=== PATIENT | female | born 1950 | race Caucasian/White ===

== ENCOUNTER → 2018-05-14 14:16 | Outpatient (CLI) | payer MEDICARE, OTHER, SELFPAY ==
[2018-05-14 14:39] LABS: Absolute Lymphocyte Count 2.17 X10^3/ul (0.83-4.51); Absolute Neutrophil Count 2.3 X10^3/uL (2.0-7.7); Basophil# 0.05 X10^3/uL; Eosinophil# 0.19 X10^3/uL; Eosinophils% 3.8 % (0-5); Hematocrit 37.6 % (37-47); Lymphocyte # 2.17 X10^3/ul (4.0); Lymphocyte % 43.2 % (19-41); Mean Corp Hgb Conc 34.6 g/gl (32-36); Mean Corpuscular Hgb 31.9 pg (27.0-32.0); Mean Corpuscular Volume 92.4 fL (81-99); Mean Platelet Vol. 10.7 fl (6.2-12.0); Monocyte# 0.29 X10^3/uL; Monocyte% 5.8 % (0-10); Neutrophil # 2.32 X10^3/uL (2.7-7.7); Neutrophil % 46.2 % (47-70); POSITIVE COUNT NO; POSITIVE DIFFERENTIAL NO; POSITIVE MORPHOLOGY NO; Platelet Count 192 K/mm3 (150-450); RBC Distribution Width CV 12.9 % (11.6-14.6); Red Blood Count 4.07 M/mm3 (4.2-5.4)
[2018-05-20 12:09] LABS: Alternaria alternata 1.27 kU/L (Class II); Bermuda Grass <0.10 kU/L (Class 0); Bluegrass, Kentucky <0.10 kU/L (Class 0); Cat Hair/Dander, Standard <0.10 kU/L (Class 0); D farinae Mite <0.10 kU/L (Class 0); D pteronyssinus <0.10 kU/L (Class 0); Dog Epithelia <0.10 kU/L (Class 0); Elm, American White <0.10 kU/L (Class 0); Oak, White <0.10 kU/L (Class 0); Plantain, English <0.10 kU/L (Class 0); Ragweed, Short/Common <0.10 kU/L (Class 0)
[2018-05-21 09:43] LABS: Mouse Urine <0.10 kU/L (Class 0)
[2018-05-22 03:07] LABS: Aspirgillus flavus Negative (Neg:<1:1); Aspirgillus fumigatus Negative (Neg:<1:1); Aspirgillus niger Negative (Neg:<1:1)
[2018-05-22 08:13] LABS: Immunoglobulin E 54 IU/mL (0-100)
== END ==
PROVIDERS: Family Provider Family Medicine; PCP Family Medicine; Visit Provider Nurse Practitioner Acute Care
DX: J45.909 Unspecified asthma, uncomplicated (principal); Z90.711 Acquired absence of uterus with remaining cervical stump
CPT/HCPCS: 36415; 82785; 85025; 86003; 86606

== ENCOUNTER → 2018-06-18 12:34 | Outpatient (CLI) | payer MEDICARE, OTHER, SELFPAY ==
--- NOTE | 2018-06-19 07:30 | PFT ---
INTRODUCTION: The patient is a 68-year-old female that presents for pulmonary function testing secondary to a diagnosis of COPD. Respiratory therapy reports good patient effort. Bronchodilators were used during testing. INTERPRETATION: Forced expiration spirometry demonstrates the presence of a moderate large airways obstructive ventilatory defect. There was a significant response to aerosolized bronchodilators noted, based upon change in FVC. Spirograms are of good quality and do not plateau indicating slow emptying of the lungs. Body plethysmography was performed and reveals an elevated RV to 161% of predicted, indicative of underlying air trapping. Diffusing capacity by single breath CO is preserved at 82% of predicted. When compared to previous pulmonary function studies dated June 2017 there has been improvement in the patient's FEV1 and DLCO. IMPRESSION: These pulmonary function studies demonstrate the presence of a partially reversible moderate large airways obstructive ventilatory defect with associated air trapping and preserved diffusing capacity.
== END ==
PROVIDERS: Family Provider Family Medicine; PCP Family Medicine; Visit Provider Nurse Practitioner Acute Care
DX: J44.9 Chronic obstructive pulmonary disease, unspecified (principal)
CPT/HCPCS: 94060; 94726; 94729

== ENCOUNTER → 2018-06-25 11:56 | Outpatient (CLI) | payer MEDICARE, OTHER, SELFPAY ==
[2018-06-25 12:25] VITALS: PULSE 101; PULSE 102; PULSE 72; PULSE 84; PULSE 85; PULSE 89; PULSE 96; PULSE 99; O2SAT 92; O2SAT 94; O2SAT 98
--- NOTE | 2018-06-25 13:15 | PCM.PSN.6M ---
PSN 6 Minute Walk Test - 6 Minute Walk Test 6 Minute Walk Test: 6 Minute Walk Test PSN:6-Minute Walk Test Start: 06/25/18 12:25 Freq: Status: Active Protocol: RESP.6MINW Document 06/25/18 12:25 DAI (Rec: 06/25/18 12:28 JLA [id number]) 6 Minute Walk Test Date Performed 06/25/18 Time Performed 12:30 Height 5 ft 4 in Weight: 103.873 kg Weight in Pounds 229.[address]: Padma Pérez Assistive device used: None Pre-test Oxygen Delivery Method Room Air Pulse Ox (%) 98 Pulse Rate (60-100 beats/min) 72 Dyspnea Edwin Scale (0-10) 1 Exertion Edwin Scale (6-20) 6 1st minute Oxygen Delivery Method Room Air Pulse Ox (%) 92 Pulse Rate (60-100 beats/min) 84 2nd minute Oxygen Delivery Method Room Air Pulse Ox (%) 92 Pulse Rate (60-100 beats/min) 89 3rd minute Oxygen Delivery Method Room Air Pulse Ox (%) 94 Pulse Rate (60-100 beats/min) 96 4th minute Oxygen Delivery Method Room Air Pulse Ox (%) 94 Pulse Rate (60-100 beats/min) 102 H 5th minute Oxygen Delivery Method Room Air Pulse Ox (%) 94 Pulse Rate (60-100 beats/min) 101 H 6th minute Oxygen Delivery Method Room Air Pulse Ox (%) 94 Pulse Rate (60-100 beats/min) 99 Dyspnea Edwin Scale (0-10) 1 Exertion Edwin Scale (6-20) 11 Post-test Oxygen Delivery Method Room Air Pulse Ox (%) 98 Pulse Rate (60-100 beats/min) 85 Full Laps Walked 22 Partial Lap, Number of Tiles Walked 0 Total Distance Walked (ft) 1298 - Interpretation Interpretation: The patient was able to ambulate 1298 feet over the course of 6 minutes on room air with no assistive devices or breaks. The patient did experience significant desaturation as low as 92% during ambulation. These findings are consistent with a respiratory limitation exercise tolerance. - Recommendations Recommendations: No supplemental oxygen is indicated at this time. However, patient will need to be followed closely given level of desaturation.
== END ==
PROVIDERS: Family Provider Family Medicine; PCP Family Medicine; Visit Provider Nurse Practitioner Acute Care
DX: J44.9 Chronic obstructive pulmonary disease, unspecified (principal)
CPT/HCPCS: 94618

== ENCOUNTER → 2018-11-19 11:43 | Outpatient (CLI) | payer MEDICARE, OTHER, SELFPAY ==
[2018-11-19 11:07] VITALS: BMI 39.8
--- OUTSIDE RECORDS SUMMARY | 2019-01-24 03:24 | XMS RPT_ITS ---
:1950 Author Organization OHIP Support Name Relationship Address Phone HOME DREW Unavailable [address] + [place] [address] R Unavailable Unavailable Unavailable HOME DREW Unavailable [address] + [place] [address] R Unavailable Unavailable Unavailable [facility] Unavailable [address] + [place] [address] R Unavailable Unavailable Unavailable [facility] Unavailable [address] + [place] [address] R Unavailable Unavailable Unavailable HOME DREW Unavailable [address] + [place] [address] R Unavailable Unavailable Unavailable [facility] Unavailable [address] + [place] [address] R Unavailable Unavailable Unavailable [facility] Unavailable [address] + [place] [address] R Unavailable Unavailable Unavailable [facility] Unavailable [address] + [place] [address] R Unavailable Unavailable Unavailable HOME DREW Unavailable [address] + [place] [address] R Unavailable Unavailable Unavailable HOME DREW Unavailable Unavailable + HOME DREW Unavailable Unavailable + HOME DREW Unavailable Unavailable + HOME DREW Unavailable [address] + [place] [address] R Unavailable Unavailable Unavailable Care Team Providers Name Role Phone Dwight Valadez D.O. Attending Unavailable Vijay Alfaro Referring Unavailable Padma Pérez Attending Unavailable Vijay Alfaro Referring Unavailable Padma Pérez Attending Unavailable Pérez, Padma Referring Unavailable Furness, Vijay Primary Care Unavailable Pérez, Padma Attending Unavailable Furness, Vijay Referring Unavailable Furness, Vijay Primary Care Unavailable Pérez, Padma Attending Unavailable Pérez, Padma Referring Unavailable Furness, Vijay Primary Care Unavailable Pérez, Padma Attending Unavailable Furness, Vijay Primary Care Unavailable Pérez, Padma Referring Unavailable Pérez, Padma Attending Unavailable Furness, Vijay Referring Unavailable Pérez, Padma Attending Unavailable Pérez, Padma Referring Unavailable Furness, Vijay Primary Care Unavailable Dwight Valadez D.O. Attending Unavailable Pérez, Padma Referring Unavailable GrahamDontrell Attending Unavailable Pérez, Padma Referring Unavailable Furness, Vijay T Attending Unavailable Furness, Vijay T Primary Care Unavailable Furness, Vijay T Attending Unavailable Furness, Vijay T Primary Care Unavailable Furness, Vijay T Admitting Unavailable Furness, Vijay T Attending Unavailable Furness, Vijay T Primary Care Unavailable Furness, Vijay T Primary Care Unavailable Furness, Vijay T Admitting Unavailable Furness, Vijay T Attending Unavailable Furness, Vijay T Primary Care Unavailable Furness, Vijay T Admitting Unavailable Furness, Vijay T Attending Unavailable Furness, Vijay T Primary Care Unavailable Furness, Vijay T Attending Unavailable Furness, Vijay T Primary Care Unavailable Furness, Vijay T Admitting Unavailable Furness, Vijay T Admitting Unavailable Furness, Vijay T Attending Unavailable Furness, Vijay T Primary Care Unavailable Furness, Vijay T Attending Unavailable Furness, Vijay T Primary Care Unavailable Furness, Vijay T Attending Unavailable Furness, Vijay T Primary Care Unavailable Furness, Vijay T Primary Care Unavailable Furness, Vijay T Attending Unavailable Furness, Vijay T Primary Care Unavailable Furness, Vijay T Admitting Unavailable PROBLEMS PROBLEMS DATE TYPE CONDITION / CODE ATTENDING STATUS SOURCE 11/19/2018 Unknown R06.02 - Shortness Beto, Active [facility] of breath / [facility] [place] R06.02(ICD-10) Hospital Repository 07/02/2018 Unknown J44.9 - Chronic Dontrell Stevenson Active [facility] obstructive [facility] pulmonary disease, Hospital unspecified / Repository J44.9(ICD-10) 05/14/2018 Unknown J45.909 - Beto, Active [facility] Unspecified asthma, [facility] [place] uncomplicated / Hospital J45.909(ICD-10) Repository 03/26/2018 Unknown G47.33 - Dwight Valadez, Active [facility] Obstructive sleep D.O. Community apnea (adult) Hospital (pediatric) / Repository G47.33(ICD-10) 03/26/2018 Unknown J30.9 - Allergic Dwight Valadez, Active [facility] rhinitis, D.O. Community unspecified / Hospital J30.9(ICD-10) Repository PROCEDURES PROCEDURES No Procedure Records FoundRESULTS RESULTS PULMONARY VISIT REPORT Observed: 11/19/2018 Status: F Source: AYR 11:[address] [facility] REPOSITORY [facility] [address] [place] [address] OFFICE VISIT Date of Service: 11/19/18 MR#: [id number] Acct: [id number] Name: LOLA DREW Rep #: [id number] : 1950 Provider: Padma Pérez Age/Sex: 68/F [place] [facility] [place] Status: Signed Assessment AND Plan 1. Chronic obstructive pulmonary disease with acute exacerbation J44.1 Plan Deteriorated. Continue Doxy, restart prednisone taper. Sending sputum culture, may change antibiotic if indicated. Continue current maintenance medications. Keep previously scheduled routine follow-up with Dr. Valadez. Contact the office next week if there is no improvement in her symptoms. Plan Detail Other Orders Orders: Other Medications New: prednisone take 4 tabs for three days, then 3 tabs for three10 mg PO QDAY 30 tabs 0RF days, then 2 tabs for three days, then 1 tab for 3 days HPI Shortness of breath: Chief Complaint: Chest congestion HPI Comments Details: This patient presents the office today for an acute visit regarding follow-up after recently being started on doxycycline and prednisone taper for a exacerbation of her COPD. She is ambulatory and currently in room air. She still has 2 days remaining of doxycycline, and just began the 20 mg dosing of prednisone. She states that overall she feels much improved compared to how she was feeling when she initially called the office with complaints. She is still experiencing chest tightness, just started taking Mucinex yesterday for the chest congestion. Continues with chest congestion today, unsure if Mucinex has been helpful. She has increase in shortness of breath and wheezing. The nebulizer has been helpful with the treatment of the shortness of breath and wheezing. She has a cough that was previously productive of yellow sputum but it house now changed to a cream color. She denies any fever or chills. She is not experience any hemoptysis. She remains compliant with Advair twice daily. She denies any medication side effects such as sore throat or thrush. Intake Vital Signs11/19/18 Height 5 ft 4 in 11/19/18 Weight: 232 lb Intake Visit Reasons: Shortness of breath Chief Complaint: Shortness of breath on exertion DME Vendor: RICARDA Accompanied by: Self Allergies amoxicillin Allergy (Mild, Verified 11/19/18 11:07) Hives sulfasalazine [From Sulfazine] Allergy (Mild, Verified 11/19/18 11:07) Hives Medications cholecalciferol (vitamin D3) 1,000 unit capsule 1,000 unit PO QDAY 03/11/18 [History Confirmed 11/19/18] duloxetine 60 mg capsule,delayed release 60 mg PO QDAY 03/11/18 [History Confirmed 11/19/18] furosemide 40 mg tablet 40 mg PO QDAY 03/11/18 [History Confirmed 11/19/18] levothyroxine 50 mcg capsule 50 mcg PO QDAY 03/11/18 [History Confirmed 11/19/18] montelukast 10 mg tablet 10 mg PO QPM 03/11/18 [History Confirmed 11/19/18] multivit with min-folic acid-lutein 400 mcg-250 mcg chewable tablet tab PO 03/11/18 [History Confirmed 11/19/18] potassium chloride ER 20 mEq tablet,extended release 20 meq PO QDAY 03/11/18 [History Confirmed 11/19/18] simvastatin 40 mg tablet 40 mg PO QPM 03/11/18 [History Confirmed 11/19/18] trazodone 50 mg tablet 50 mg PO QDAY 03/11/18 [History Confirmed 11/19/18] albuterol sulfate HFA 90 mcg/actuation aerosol inhaler 2 puff INHALATION Q6H PRN #18 g 03/16/18 [Rx Confirmed 11/19/18] azelastine-fluticasone 137 mcg-50 mcg/spray nasal spray 1 spray INTRANASAL BID #23 g 05/14/18 [Rx Confirmed 11/19/18] fluticasone-salmeterol 230 mcg-21 mcg/actuation HFA aerosol inhaler 2 puff INHALATION BID #1 device 11/04/18 [Rx Confirmed 11/19/18] albuterol sulfate 2.5 mg/3 mL (0.083 %) solution for nebulization 2.5 mg INHALATION Q4H PRN #180 vial 11/18/18 [Rx Confirmed 11/19/18] guaifenesin ER 1,200 mg tablet, extended release 12 hr 1,200 mg PO Q12H #30 tab 11/18/18 [Rx Confirmed 11/19/18] prednisone 10 mg tablet 10 mg PO QDAY #30 tab 11/19/18 [Rx Confirmed 11/19/18] PFSH Medical History Emphysema lung (Chronic) Vitamin D deficiency (Chronic) Osteopenia (Chronic) GERD (gastroesophageal reflux disease) (Chronic) Depression (Chronic) JOHNATHAN (obstructive sleep apnea) (Chronic) Insomnia (Chronic) Hypercholesterolemia (Chronic) Hypothyroidism (Chronic) Seborrheic keratosis (Chronic) Lentigo (Chronic) Hemangioma of skin (Chronic) Neurotic excoriations (Chronic) Neoplasm of uncertain behavior of skin (Chronic) Personal history of other malignant neoplasm of skin (Chronic) Actinic keratosis (Chronic) Asthma (Chronic) Obesity (Chronic) Nicotine dependence in remission (Chronic) COPD (chronic obstructive pulmonary disease) (Chronic) Allergic rhinitis (Chronic) Surgical History History of sinus surgery (Resolved) History of partial hysterectomy (Resolved) Family History Mother Cancer Father Asthma Heart disease Myocardial infarction Sister Asthma Hypertension Seasonal allergies Social History Smoking Status: Former smoker second hand exposure: Yes alcohol intake: current alcohol intake frequency: holidays/special occasions only substance use type: does not use caffeine: Yes Review of Systems Const CONSTITUTIONAL: Negative anorexia, body ache, chills, daytime sleepiness, fever(s), night sweats, oral thrush, stops breathing during sleep, weight loss, sleeping in chair, fatigue, weight loss, weight gain, frequent colds, seasonal allergies, other, headache(s) or orthopnea EETM Ear Nose Throat Mouth: Positive hearing normal; negative hard of hearing, hoarseness, dry mouth in morning, change in vision, itchy eyes, eye pain, swallowing Difficulty, ear pain, nose bleed, headache(s), mouth pain, nasal congestion, nasal discharge, sinus pain, sinus pressure, sore throat or other Cardio Cardiovascular: Negative chest pain, chest pain at rest, chest pain with activity, irregular heart rhythm, edema, shortness of breath when lying down, palpitations, murmur or other Resp Respiratory: Positive as per HPI; negative shortness of breath, pain with cough, wheezing, chest congestion, cough, chest tightness, pain on inspiration, inhalers, increase use of rescue inhalers, snoring, apnea or other Gastro Gastrointestional: Negative bloody stools, change in appetite, difficulty swallowing, reflux, hematemesis, melena stool, loose stool, constipation or other Genitourinary: Negative blood in urine, nocturia, pain with urination or other Musc Musculoskeletal: Negative body pain, back pain, neck pain or other Skin/Breast Skin/Breast: Negative dry skin, itching, unusual bruising, breast lump or other Neuro Neurological: Negative restless legs, confusion, weakness or other Psych Psychocological: Negative abnormal sleep pattern, anxiety, thoughts of hurting self/others, hopelessness or other Lymph Lymphatic: Negative easy bleeding, easy bruising, swollen lymph nodes or other Exam Const Constitutional: Positive conversant, cooperative, in no acute respiratory distress, well developed, well nourished and good hygiene Head Head: Positive normocephalic and atraumatic; negative cyanosis of lips/distal nose Eyes Eye: Positive clear conjunctiva; negative nystagmus or scleral abnormality Ears Ear: Positive hearing normal and external ears normal; negative hard of hearing Nose Nose: Positive external nose normal and no nasal discharge; negative epistaxis Neck Neck: Positive normal visual inspection, full ROM and trachea midline; negative lymphadenopathy, JVD or tender Chest Wall Chest: Positive symmetric chest movement and increased A/P diameter Resp lung sounds: Positive diminished, wheezes, prolonged expiratory time and increased work of breathing; negative rhonchi, rales, dullness to percussion or use of accessory muscles Cardio Cardiac: Positive regular rate, regular rhythm, S1 normal and S2 normal; negative murmur GI GI: Positive normal to inspection; negative distended Genitourinary: Positive deferred Musc Musculoskeletal: Positive steady gait and ROM normal; negative kyphosis or scoliosis Pulses Pulse: Yes pulses normal x4 extremities Extremities Extremities: No edema Neuro Neurologic: Yes conversant, Yes no focal neuro deficits, Yes normal concentration, Yes understands questions, Yes cooperative, Yes normal cognition, Yes normal coordination, No tremor Lymph Lymphatic: No lymphadenopathy Psych Appearance: Positive grossly normal, eye contact and well kempt Mental Status: Positive mental status grossly normal Mood: Positive congruent mood Affect: Positive normal affect Coding Level of Care Code Off vis,est,level 3 Diagnoses Chronic obstructive pulmonary disease with acute exacerbation J44.1 COPD type: COPD with acute exacerbation 11/19/18 1145 <Electronically signed by Padma HUBBARDC> Date Padma HUBBARDC Cosigner Signature: Date (if applicable) CC: Vijay Alfaro MD Observed: 11/19/2018 Status: F Source: [facility] CULTURE, SPUTUM 11:[address] [facility] REPOSITORY Gram Stain Gram Stain 2+ Gram positive cocci 2+ White Blood Cells Resp. Culture Mixed normal respiratory charu. No Streptococcus pneumoniae, beta-hemolytic Streptococcus or Staphylococcus aureus isolated. Performed By: #### [id number] #### [facility] [address], [address] 6 MINUTE WALK TEST Observed: 06/25/2018 Status: F Source: GALEN 1:[address] [facility] REPOSITORY [facility] Pulmonary Services/Neurology [address] [place] [address] MR#: [id number] Acct: [id number] Name: LOLA DREW Rep #: [id number] : 1950 68 From: Dontrell Stevenson MD Referring Dr: Padma Pérez NP Date: Ordering Dr: Sex: F C Location: PSN PSN 6 Minute Walk Test - 6 Minute Walk Test 6 Minute Walk Test: 6 Minute Walk Test PSN:6-Minute Walk Test Start: 06/25/18 12:25 Freq: Status: Active Protocol: RESP.6MINW Document 06/25/18 12:25 DAI (Rec: 06/25/18 12:28 DAI [id number]) 6 Minute Walk Test Date Performed 06/25/18 Time Performed 12:30 Height 5 ft 4 in Weight: 103.873 kg Weight in Pounds 229.[address]: Padma Pérez Assistive device used: None Pre-test Oxygen Delivery Method Room Air Pulse Ox (%) 98 Pulse Rate (60-100 beats/min) 72 Dyspnea Edwin Scale (0-10) 1 Exertion Edwin Scale (6-20) 6 1st minute Oxygen Delivery Method Room Air Pulse Ox (%) 92 Pulse Rate (60-100 beats/min) 84 2nd minute Oxygen Delivery Method Room Air Pulse Ox (%) 92 Pulse Rate (60-100 beats/min) 89 3rd minute Oxygen Delivery Method Room Air Pulse Ox (%) 94 Pulse Rate (60-100 beats/min) 96 4th minute Oxygen Delivery Method Room Air Pulse Ox (%) 94 Pulse Rate (60-100 beats/min) 102 H 5th minute Oxygen Delivery Method Room Air Pulse Ox (%) 94 Pulse Rate (60-100 beats/min) 101 H 6th minute Oxygen Delivery Method Room Air Pulse Ox (%) 94 Pulse Rate (60-100 beats/min) 99 Dyspnea Edwni Scale (0-10) 1 Exertion Edwin Scale (6-20) 11 Post-test Oxygen Delivery Method Room Air Pulse Ox (%) 98 Pulse Rate (60-100 beats/min) 85 Full Laps Walked 22 Partial Lap, Number of Tiles Walked 0 Total Distance Walked (ft) 1298 - Interpretation Interpretation: The patient was able to ambulate 1298 feet over the course of 6 minutes on room air with no assistive devices or breaks. The patient did experience significant desaturation as low as 92% during ambulation. These findings are consistent with a respiratory limitation exercise tolerance. - Recommendations Recommendations: No supplemental oxygen is indicated at this time. However, patient will need to be followed closely given level of desaturation. 06/25/18 1315 <Electronically signed by Dontrell Stevenson MD> Date Dontrell Stevenson MD CC: Date Dictated: 06/25/18 1315 Date Transcribed: 06/25/181314 Jail Keeper: Dontrell Stevenson Signed PULMONARY VISIT REPORT Observed: 06/24/2018 Status: F Source: GALEN 3:[address] [facility] REPOS[facility]ORY [facility] [address] [place] [address] OFFICE VISIT Date of Service: 06/24/18 MR#: [id number] Acct: [id number] Name: LOLA DREW Rep #: [id number] : 1950 Provider: Padma Pérez Age/Sex: 68/F Location: [facility] [place] Status: Signed Assessment AND Plan 1. JOHNATHAN (obstructive sleep apnea) G47.33 Plan Patient is using and benefiting from Pap therapy. No indication for titration study at this time. Continue to encourage weight loss. Contact the office for any new or worsening symptoms in the meantime. Follow-up in 6 months. 2. 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 No change in maintenance medications. Discussed the possibility of adding a LAMA or be hyperinflation and air trapping, the patient reports that her shortness of breath is stable and she is not ready to step up therapy. This seems reasonable. We will plan to evaluate for possible hypoxia during ambulation with a simple pulmonary stress test, to evaluate for shortness of breath that she experiences while walking. If indicated submental oxygen will be ordered. Otherwise, follow-up with Dr. Valadez in 6 months. Contact the office with any new or worsening symptoms in the meantime. Reviewed sick policy with the patient, she conveys understanding. Encouraged the patient to receive a flu shot in the upcoming future, also reviewed defensive mechanisms to maintain health during the winter months. Orders Orders: 3. Postnasal drip R09.82 Plan Stable, continue Dymista. Plan Detail Follow Up 6 Months (DMB) HPI 1 M FU: Chief Complaint: Shortness of breath on exertion HPI Comments Details: This patient presents the office today for routine follow-up on her asthma/COPD overlap syndrome, and obstructive sleep apnea. She is ambulatory and currently on room air. She was treated for an exacerbation of her asthma 1 month ago with a prednisone burst. She does not require antibiotics at the time. She did return to baseline. Currently she continues to experience shortness of breath on exertion, reports that it has not worsened. She has an occasional cough in the morning that is productive of clear to white sputum. It does resolve throughout the day. She denies any hemoptysis. She does admit to wheezing and chest tightness on exertion, she does not feel the need to use her rescue inhaler. Her postnasal drip has significantly improved while on Dymista. She denies any medication side effects such as epistaxis. She denies any chest pain or palpitations, she also denies any lower extremity edema. She has not experienced any fever, chills or body aches. She is compliant with Advair twice daily. She reports rinsing her mouth out after each use. She denies any medication side effects such as sore throat or thrush. Function test completed on June 18, 2018 interpreted as showing the presence of a partially reversible moderate large airway obstructive ventilatory defect with associated air trapping and preserved diffusing capacity. FVC 96% predicted, FEV1 76% predicted, FEV1/FVC 61% of predicted, TLC 115% predicted, RV 161% of predicted and DLCO 82% of predicted. Complaints report for the past 30 days has been reviewed and shows 100% compliance, average use is 9 hours and 23 minutes. Current setting is 9 7 m of water. Current AHI is controlled at an average of 1.3 events per hour and leaks do not appear to be an issue. Intake Vital Signs06/24/18 Height 5 ft 4 in 06/24/18 Weight: 229 lb Intake Visit Reasons: 1 M Balance Wheel Hand Filer Required: No Accompanied by: Self Is patient in pain?: No Allergies amoxicillin Allergy (Mild, Verified 05/14/18 12:51) Hives sulfasalazine [From Sulfazine] Allergy (Mild, Verified 05/14/18 12:51) Hives Medications cholecalciferol (vitamin D3) 1,000 unit capsule 1,000 unit PO QDAY 03/11/18 [History Confirmed 06/24/18] duloxetine 60 mg capsule,delayed release 60 mg PO QDAY 03/11/18 [History Confirmed 06/24/18] furosemide 40 mg tablet 40 mg PO QDAY 03/11/18 [History Confirmed 06/24/18] levothyroxine 50 mcg capsule 50 mcg PO QDAY 03/11/18 [History Confirmed 06/24/18] montelukast 10 mg tablet 10 mg PO QPM 03/11/18 [History Confirmed 06/24/18] multivit with min-folic acid-lutein 400 mcg-250 mcg chewable tablet tab PO 03/11/18 [History Confirmed 06/24/18] potassium chloride ER 20 mEq tablet,extended release 20 meq PO QDAY 03/11/18 [History Confirmed 06/24/18] simvastatin 40 mg tablet 40 mg PO QPM 03/11/18 [History Confirmed 06/24/18] trazodone 50 mg tablet 50 mg PO QDAY 03/11/18 [History Confirmed 06/24/18] albuterol sulfate HFA 90 mcg/actuation aerosol inhaler 2 puff INHALATION Q6H PRN #18 g 03/16/18 [Rx Confirmed 06/24/18] fluticasone-salmeterol 230 mcg-21 mcg/actuation HFA aerosol inhaler 2 puff INHALATION BID #1 device 03/16/18 [Rx Confirmed 06/24/18] azelastine-fluticasone 137 mcg-50 mcg/spray nasal spray 1 spray INTRANASAL BID #23 g 05/14/18 [Rx Confirmed 06/24/18] prednisone 20 mg tablet 60 mg PO QDAY #15 tab 05/14/18 [Rx Confirmed 06/24/18] PFSH Medical History Emphysema lung (Chronic) Vitamin D deficiency (Chronic) Osteopenia (Chronic) GERD (gastroesophageal reflux disease) (Chronic) Depression (Chronic) JOHNATHAN (obstructive sleep apnea) (Chronic) Insomnia (Chronic) Hypercholesterolemia (Chronic) Hypothyroidism (Chronic) Seborrheic keratosis (Chronic) Lentigo (Chronic) Hemangioma of skin (Chronic) Neurotic excoriations (Chronic) Neoplasm of uncertain behavior of skin (Chronic) Personal history of other malignant neoplasm of skin (Chronic) Actinic keratosis (Chronic) Asthma (Chronic) Obesity (Chronic) Nicotine dependence in remission (Chronic) COPD (chronic obstructive pulmonary disease) (Chronic) Allergic rhinitis (Chronic) Surgical History History of sinus surgery (Resolved) History of partial hysterectomy (Resolved) Family History Mother Cancer Father Asthma Heart disease Myocardial infarction Sister Asthma Hypertension Seasonal allergies Social History Smoking Status: Former smoker second hand exposure: Yes alcohol intake: current alcohol intake frequency: holidays/special occasions only substance use type: does not use caffeine: Yes Review of Systems Const CONSTITUTIONAL: Negative anorexia, body ache, chills, daytime sleepiness, fever(s), night sweats, oral thrush, stops breathing during sleep, weight loss, sleeping in chair, fatigue, weight loss, weight gain, frequent colds, seasonal allergies, other, headache(s) or orthopnea EETM Ear Nose Throat Mouth: Positive hearing normal and nasal discharge; negative hard of hearing, hoarseness, dry mouth in morning, change in vision, itchy eyes, eye pain, swallowing Difficulty, ear pain, nose bleed, headache(s), mouth pain, nasal congestion, post nasal drip, sinus pain, sinus pressure, sore throat or other Cardio Cardiovascular: Negative chest pain, chest pain at rest, chest pain with activity, irregular heart rhythm, edema, shortness of breath when lying down, palpitations, murmur or other Resp Respiratory: Positive as per HPI, shortness of breath shortness of breath: Positive with activity and cough cough: Positive productive color: Positive white; negative pain with cough, wheezing, chest congestion, chest tightness, pain on inspiration, inhalers, increase use of rescue inhalers, snoring, apnea or other Gastro Gastrointestional: Negative bloody stools, change in appetite, difficulty swallowing, reflux, hematemesis, melena stool, loose stool, constipation or other Genitourinary: Negative blood in urine, nocturia, pain with urination or other Musc Musculoskeletal: Negative body pain, back pain, neck pain or other Skin/Breast Skin/Breast: Negative dry skin, itching, rash, unusual bruising, breast lump or other Neuro Neurological: Negative restless legs, confusion, weakness or other Psych Psychocological: Negative abnormal sleep pattern, anxiety, thoughts of hurting self/others, hopelessness or other Lymph Lymphatic: Negative easy bleeding, easy bruising, swollen lymph nodes or other Exam Const Constitutional: Positive conversant, cooperative, in no acute respiratory distress, healthy appearing, well developed, well nourished, good hygiene and obese Head Head: Positive normocephalic and atraumatic; negative cyanosis of lips/distal nose, maxillary sinus tenderness or frontal sinus tenderness Eyes Eye: Positive clear conjunctiva; negative nystagmus or scleral abnormality Ears Ear: Positive hearing normal and external ears normal; negative hard of hearing Nose Nose: Positive external nose normal and no nasal discharge; negative epistaxis Mouth Mouth: Positive oral mucosae normal, no lesions, good dentition and crowded posterior oropharynx; negative post nasal drip, malodorous breath or oral thrush present Mallampati Score: I: Mallampati Score Neck Neck: Positive normal visual inspection, full ROM and trachea midline; negative lymphadenopathy, JVD or tender Chest Wall Chest: Positive normal inspection of the chest and symmetric chest movement; negative increased A/P diameter Resp lung sounds: Positive clear to auscultation, good air exchange, normal expiratory time and normal respiratory effort; negative diminished, wheezes, rhonchi, rales, dullness to percussion or wheeze present on forced exhalation Cardio Cardiac: Positive regular rate, regular rhythm, S1 normal and S2 normal; negative murmur GI GI: Positive normal to inspection and obese; negative distended Genitourinary: Positive deferred Musc Musculoskeletal: Positive steady gait and ROM normal; negative kyphosis or scoliosis Skin Pulmonary Skin Exam: Positive intact; negative rash or lesion Pulses Pulse: Yes radial pulses present Extremities Extremities: Yes capillary refill normal, No clubbing, No cyanosis, No edema Neuro Neurologic: Yes conversant, Yes no focal neuro deficits, Yes normal concentration, Yes understands questions, Yes cooperative, Yes normal cognition, Yes normal coordination Lymph Lymphatic: No lymphadenopathy, Yes tenderness, No cervical adenopathy Psych Appearance: Positive grossly normal, eye contact and well kempt Mental Status: Positive mental status grossly normal Mood: Positive congruent mood Affect: Positive normal affect Coding Level of Care Code Off vis,est,level 3 Diagnoses JOHNATHAN (obstructive sleep apnea) G47.33 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 REPOSITORY [facility] Pulmonary Services/Neurology [address] [place] [address] MR#: [id number] Acct: [id number] Name: LOLA DREW Rep #: [id number] : 1950 68 From: Dwight Valadez DO Referring Dr: Padma Pérez NP Status: REG CLI Ordering Dr: Date: Location: [facility] Sex: F C INTRODUCTION: The patient is a 68-year-old female that presents for pulmonary function testing secondary to a diagnosis of COPD. Respiratory therapy reports good patient effort. Bronchodilators were used during testing. INTERPRETATION: Forced expiration spirometry demonstrates the presence of a moderate large airways obstructive ventilatory defect. There was a significant response to aerosolized bronchodilators noted, based upon change in FVC. Spirograms are of good quality and do not plateau indicating slow emptying of the lungs. Body plethysmography was performed and reveals an elevated RV to 161% of predicted, indicative of underlying air trapping. Diffusing capacity by single breath CO is preserved at 82% of predicted. When compared to previous pulmonary function studies dated June 2017 there has been improvement in the patient's FEV1 and DLCO. IMPRESSION: These pulmonary function studies demonstrate the presence of a partially reversible moderate large airways obstructive ventilatory defect with associated air trapping and preserved diffusing capacity. 06/19/1834 <Electronically signed by Dwight Vlaadez DO> Date Dwight Valadez DO CC: Padma Alfaro MD Date Dictated: 06/19/18729 Date Transcribed: 06/19/18729 Jail Keeper: DB Signed PULMONARY VISIT REPORT Observed: 05/15/2018 Status: F Source: [facility] 5:[address] [facility] REPOSITORY [facility] [address] [place] [address] OFFICE VISIT Date of Service: 05/14/18 MR#: [id number] Acct: [id number] Name: LOLA DREW Rep #: [id number] : 1950 Provider: Padma Pérez Age/Sex: 67/F Location: [facility] Status: Signed Assessment AND Plan 1. Moderate persistent asthma with acute exacerbation J45.41 Plan Unstable, acute exacerbation. Given patient's ongoing symptoms of significant wheezing and chest tightness, she will be given a Kenalog injection of 60 mg IM 1 today in the office, then started on a 5 day course of prednisone 60 mg each day. Because the patient has ongoing allergy symptoms despite multi drug therapy, we will order a mini Rast, IgE, and CBC with differential to rule out potential etiologies of her symptoms. Discussed the potential need to reevaluate and change her baseline medications if her asthma is not better controlled at future visits. She is instructed to follow-up in 1 month or sooner if needed based on her symptoms. She is considered to be failed on fluticasone therapy, and has not successfully controlled her postnasal drip and could be contributing to her exacerbation of asthma. Therefore, she has been stepped up to Dymista, sample provided in the office today. 2. PND (post-nasal drip) R09.82 Status Acute Plan Deteriorated. Patient is provided with samples of Dymista to replace Flonase on her medication list, and a prescription sent to her pharmacy. Mini Rast and IgE testing as noted above. 3. Chronic obstructive pulmonary disease with acute exacerbation J44.1 Plan PFTs ordered for 1 month from this visit and patient follow- up after for reevaluation of symptoms and medications. 4. JOHNATHAN (obstructive sleep apnea) G47.33 Plan Stable. Continue on CPAP therapy nightly at current settings. She is using and benefiting from CPAP therapy. No indication for titration study at this time. Plan Detail Other Orders Orders: Other Medications New: Discontinued: Kenalog (triamcinolone acetonide) 60 mg (6 mL) IM ONCE asthma NS J45.909 Salome Worrell Discontinued Reason: Office Medicati on has been Documented as given Follow Up 1 Month (CSM) HPI HPI Comments Details: Lola is a 67-year-old pleasant female who presents the office today for a 2 month follow-up for obstructive sleep apnea and COPD/asthma overlap syndrome. The patient notes that she has been feeling terrible for approximately 1 month. She notes that she is requiring use of her rescue inhaler on average twice a day, she has a mildly productive cough, she has significant wheezing, and she complains of intermittent chest tightness both with exertion and at rest. She also notes that she has some night sweats and chills that have woken her up over the past several weeks, but she has been afebrile at home. The patient does continue to smoke approximately one half pack of cigarettes a day, noting that she had quit for some time but recent familial stressors caused her to start up again. She also complains of ongoing postnasal drip and throat clearing despite being on Flonase, Singulair, and Claritin. She denies any side effects from the Flonase such as epistaxis. She does take her Advair HFA inhaler twice a day. She reports rinsing her mouth out after each use of Advair. She denies any medication side effects such as sore throat or thrush. The patient does appear tired and is noted to have a harsh cough and audible wheeze during conversation. Compliance report of patient's CPAP reviewed prior to visit. She is 100% compliant, wears the machine on average of 9 hours and 20 minutes nightly with a pressure of 9 cm of water. AHI 2.1 Intake Vital Signs05/14/18 Height 5 ft 4 in 05/14/18 Weight: 230 lb Intake Visit Reasons: 2 M FU [facility] Vendor: [employer] Accompanied by: Self Allergies amoxicillin Allergy (Mild, Verified 05/14/18 12:51) Hives sulfasalazine [From Sulfazine] Allergy (Mild, Verified 05/14/18 12:51) Hives Medications cholecalciferol (vitamin D3) 1,000 unit capsule 1,000 unit PO QDAY 03/11/18 [History Confirmed 05/14/18] duloxetine 60 mg capsule,delayed release 60 mg PO QDAY 03/11/18 [History Confirmed 05/14/18] furosemide 40 mg tablet 40 mg PO QDAY 03/11/18 [History Confirmed 05/14/18] levothyroxine 50 mcg capsule 50 mcg PO QDAY 03/11/18 [History Confirmed 05/14/18] montelukast 10 mg tablet 10 mg PO QPM 03/11/18 [History Confirmed 05/14/18] multivit with min-folic acid-lutein 400 mcg-250 mcg chewable tablet tab PO 03/11/18 [History Confirmed 05/14/18] potassium chloride ER 20 mEq tablet,extended release 20 meq PO QDAY 03/11/18 [History Confirmed 05/14/18] simvastatin 40 mg tablet 40 mg PO QPM 03/11/18 [History Confirmed 05/14/18] trazodone 50 mg tablet 50 mg PO QDAY 03/11/18 [History Confirmed 05/14/18] albuterol sulfate HFA 90 mcg/actuation aerosol inhaler 2 puff INHALATION Q6H PRN #18 g 03/16/18 [Rx Confirmed 05/14/18] fluticasone-salmeterol 230 mcg-21 mcg/actuation HFA aerosol inhaler 2 puff INHALATION BID #1 device 03/16/18 [Rx Confirmed 05/14/18] azelastine-fluticasone 137 mcg-50 mcg/spray nasal spray 1 spray INTRANASAL BID #23 g 05/14/18 [Rx Confirmed 05/14/18] prednisone 20 mg tablet 60 mg PO QDAY #15 tab 05/14/18 [Rx Confirmed 05/14/18] PFSH Medical History Emphysema lung (Chronic) Vitamin D deficiency (Chronic) Osteopenia (Chronic) GERD (gastroesophageal reflux disease) (Chronic) Depression (Chronic) JOHNATHAN (obstructive sleep apnea) (Chronic) Insomnia (Chronic) Hypercholesterolemia (Chronic) Hypothyroidism (Chronic) Seborrheic keratosis (Chronic) Lentigo (Chronic) Hemangioma of skin (Chronic) Neurotic excoriations (Chronic) Neoplasm of uncertain behavior of skin (Chronic) Personal history of other malignant neoplasm of skin (Chronic) Actinic keratosis (Chronic) Asthma (Chronic) Obesity (Chronic) Nicotine dependence in remission (Chronic) COPD (chronic obstructive pulmonary disease) (Chronic) Allergic rhinitis (Chronic) Surgical History History of sinus surgery (Resolved) History of partial hysterectomy (Resolved) Family History Mother Cancer Father Asthma Heart disease Myocardial infarction Sister Asthma Hypertension Seasonal allergies Social History Smoking Status: Former smoker second hand exposure: Yes alcohol intake: current alcohol intake frequency: holidays/special occasions only substance use type: does not use caffeine: Yes Review of Systems Const CONSTITUTIONAL: Positive chills and night sweats; negative anorexia, body ache, daytime sleepiness, fever(s), oral thrush, stops breathing during sleep, weight loss, sleeping in chair, fatigue, weight loss, weight gain, frequent colds, seasonal allergies, other, headache(s) or orthopnea EETM Ear Nose Throat Mouth: Positive post nasal drip; negative hard of hearing, hearing normal, hoarseness, dry mouth in morning, change in vision, itchy eyes, eye pain, swallowing Difficulty, ear pain, nose bleed, headache(s), mouth pain, nasal congestion, nasal discharge, sinus pain, sinus pressure, sore throat or other Cardio Cardiovascular: Negative chest pain, chest pain at rest, chest pain with activity, irregular heart rhythm, edema, shortness of breath when lying down, palpitations, murmur or other Resp Respiratory: Positive as per HPI, shortness of breath shortness of breath: Positive with activity, while talking, lying down and worsening, wheezing, cough cough: Positive productive color: Positive yellow and chest tightness; negative pain with cough, chest congestion, pain on inspiration, inhalers, increase use of rescue inhalers, snoring, apnea or other Gastro Gastrointestional: Negative bloody stools, change in appetite, difficulty swallowing, reflux, hematemesis, melena stool, loose stool, constipation or other Genitourinary: Negative blood in urine, nocturia, pain with urination or other Musc Musculoskeletal: Negative body pain, back pain, neck pain or other Skin/Breast Skin/Breast: Negative dry skin, itching, rash, unusual bruising, breast lump or other Neuro Neurological: Negative restless legs, confusion, weakness or other Psych Psychocological: Negative abnormal sleep pattern, anxiety, thoughts of hurting self/others, hopelessness or other Lymph Lymphatic: Negative easy bleeding, easy bruising, swollen lymph nodes or other Exam Const Constitutional: Positive conversant, cooperative, in no acute respiratory distress, well developed, obese, well nourished, good hygiene and healthy appearing Head Head: Positive normocephalic and atraumatic; negative cyanosis of lips/distal nose Eyes Eye: Positive clear conjunctiva and nystagmus; negative scleral abnormality Ears Ear: Positive external ears normal; negative hard of hearing or hearing normal Nose Nose: Positive external nose normal and clear nasal discharge; negative epistaxis Mouth Mouth: Positive post nasal drip, oral mucosae normal, no lesions and crowded posterior oropharynx; negative oral thrush present Mallampati Score: III: Mallampati Score Neck Neck: Positive normal visual inspection, full ROM and trachea midline; negative lymphadenopathy, JVD or tender Chest Wall Chest: Positive normal inspection of the chest and symmetric chest movement; negative increased A/P diameter Resp lung sounds: Positive good air exchange, wheezes wheezing: Positive bilateral, wheeze present on forced exhalation, normal respiratory effort, increased work of breathing and prolonged expiratory time; negative diminished, rhonchi, rales or dullness to percussion Cardio Cardiac: Positive regular rate, regular rhythm, S1 normal and S2 normal; negative murmur GI GI: Positive normal to inspection, normal bowel sounds and obese; negative distended Genitourinary: Positive deferred Musc Musculoskeletal: Positive steady gait and ROM normal; negative kyphosis or scoliosis Skin Pulmonary Skin Exam: Positive intact; negative rash Pulses Pulse: Yes radial pulses present Extremities Extremities: Yes capillary refill normal Neuro Neurologic: Yes conversant, Yes no focal neuro deficits, Yes cooperative, Yes normal cognition, Yes normal coordination, Yes normal concentration, Yes understands questions Lymph Lymphatic: No lymphadenopathy Psych Appearance: Positive grossly normal, eye contact and well kempt Mental Status: Positive mental status grossly normal Mood: Positive labile mood (Patient noted to be pleasant, but also tearful related to acute illness.) Affect: Positive normal affect and tearful Office Meds Kenalog Performing Provider: JOSE G Callahan Administered by: Salome Worrell on 05/14/18 14:03 Dose Route Admin Location Lot Number Expiration Date NDC Chief Legal Officer 60 mg IM L buttock [id number] 06/03/19 1204-5328-80 [place] [employer] Coding Level of Care Code Off vis,est,level 4 Diagnoses Moderate persistent asthma with acute exacerbation J45.41 Asthma severity: moderate Asthma persistence: persistent Asthma complication type: with acute exacerbation PND (post-nasal drip) R09.82 Chronic obstructive pulmonary disease with acute exacerbation J44.1 COPD type: COPD with acute exacerbation JOHNATHAN (obstructive sleep apnea) G47.33 05/15/18 1740 <Electronically signed by Padma Pérez HAND I CUTTEREusebioC> Date Padma HUBBARDC Cosigner Signature: Date (if applicable) CC: Vijay Alfaro MD CBC W/DIFF, AUTOMATED Collected: 05/14/2018 Status: F Source: AYR 2:[address] [facility] REPOSITORY TYPE CODE TESTS RESULT OUT OF RANGE REFERENCE UNITS LAB L100.1000 4.4-11.0 K/mm3 Normal WBC 5.0 LAB L100.1200 4.2-5.4 M/mm3 Low RBC 4.07 LAB L100.1300 12.0-15.0 g/dl Normal HGB 13.0 LAB L100.1400 37-47 % Normal HCT 37.6 LAB L100.1500 81-99 fL Normal MCV 92.4 LAB L100.1600 27.0-32.0 pg Normal MCH 31.9 LAB L100.1700 32-36 g/gl Normal MCHC 34.6 LAB L100.1810 11.6-14.6 % Normal RDW CV 12.9 LAB L100.1820 35.1-43.9 fl Normal RDW SD 43.0 LAB L100.1900 150-450 K/mm3 Normal PLT 192 LAB L100.2000 6.2-12.0 fl Normal MPV 10.7 LAB L100.2100 47-70 % Low NEUT% 46.2 LAB L100.2200 19-41 % High LY% 43.2 LAB L100.2300 0-10 % Normal MONO% 5.8 LAB L100.2400 0-5 % Normal EO% 3.8 LAB L100.2500 0-1 % Normal BASO% 1.0 LAB L100.2550 0.0-0.9 % Normal IM GRAN % 0.000 Result Comment: IG% - Immature Granulocytes (promyelocytes, myelocytes and metamyelocytes) > 1% indicates that a LEFT SHIFT is Present. LAB L100.2620 2.0-7.7 X10 3/uL Normal Absolute Neut 2.3 LAB L100.2720 0.83-4.51 X10 3/ul Normal Absolute Lymph 2.17 Performed By: #### L100.0100 #### [facility] [address] [place], [address] ALLERGEN, MINI-RAST Collected: 05/14/2018 Status: F Source: AYR 2:[address] [facility] REPOSITORY TYPE CODE TESTS RESULT OUT OF REFERENCE UNITS RANGE LAB L5500.1001 Class 0 kU/L D PTERONYSSINUS Normal <0.10 LAB L5500.1002 Class 0 kU/L D FARINAE MITE Normal <0.10 LAB L5500.2001 Class 0 kU/L CAT HAIR/DANDER Normal <0.10 LAB L5500.2002 Class 0 kU/L DOG EPITHELIA Normal <0.10 LAB L5500.4002 Class 0 kU/L [place] Normal <0.10 LAB L5500.4008 Class 0 kU/L [place], [place] Normal <0.10 LAB L5500.5006 Class II kU/L A. ALTERNATA High 1.27 LAB L5500.6007 Class 0 kU/L [place], WHITE Normal <0.10 LAB L5500.6008 Class 0 kU/L [place],AMER WHITE Normal <0.10 LAB L5500.7001 Class 0 kU/L [place] SH/COM Normal <0.10 LAB L5500.7009 Class 0 kU/L [place],ENGLSH Normal <0.10 LAB L5500.7150 Class 0 kU/L Mouse Urine Normal <0.10 Result Comment: Performed at: [address] [id number] Custom Dressmaker: Freedom Camara MD, Phone: [phone] LAB L5789.6898 . Normal RAST COMMENT Comment Result Comment: Levels of Specific IgE Class Description of Class ----- < 0.10 0 Negative 0.10 - 0.31 0/I Equivocal/Low 0.32 - 0.55 I Low 0.56 - 1.40 II Moderate 1.41 - 3.90 III High 3.91 - 19.00 IV Very High 19.01 - 100.00 V Very High >100.00 Very High Performed By: #### L5500.0300 #### [facility] (refer to report for specific site) refer to report for address and phone number IMMUNOGLOBULIN E Collected: 05/14/2018 Status: F Source: AYR 2:[address] [facility] REPOSITORY TYPE CODE TESTS RESULT OUT OF RANGE REFERENCE UNITS LAB L3200.1600 0-100 IU/mL Normal IMMUNO E 54 Result Comment: Performed at: [facility] [id number] Custom Dressmaker: Freedom Camara MD, Phone: [phone] Performed By: #### L3200.1600, L3500.3600 #### [facility] (refer to report for specific site) refer to report for address and phone number ASPERGILLUS ANTIBODIES Collected: 05/14/2018 Status: F Source: AYR 2:[address] [facility] REPOSITORY TYPE CODE TESTS RESULT OUT OF RANGE REFERENCE UNITS LAB L3500.3700 Neg:<1:1 Asp. Normal fumigatus Negative LAB L3500.3800 Neg:<1:1 Asp. Normal flavus Negative LAB L3500.3900 Neg:<1:1 Asp. Normal niger Negative Performed By: #### L3200.1600, L3500.3600 #### [facility] (refer to report for specific site) refer to report for address and phone number NM HEPATOBILIARY DUCT Observed: 04/22/2018 Status: F Source: [facility] SYSTEM IMAGING W/EF 6:09 AM [facility] REPOSITORY Exam Date/Time: 04/22/2018 08:55 EDT Reason for Exam: RUQ ABD PAIN;Abdominal pain Report STUDY: NM Hepatobiliary Duct System Imaging w/EF; 04/22/2018 8:55 am INDICATION: Abdominal pain. COMPARISON: Abdominal ultrasound dated 04/06/2018. ACCESSION NUMBER(S): [id number] ORDERING CLINICIAN: Vijay Alfaro TECHNIQUE: DIVISION OF NUCLEAR MEDICINE HEPATOBILIARY SCAN (HIDA), QUANTITATIVE The patient received an intravenous dose of 6 mCi of Tc-99m mebrofenin (Choletec). Sequential images of the upper abdomen were then acquired over the next 60 minutes. An intravenous infusion of the cholecystokinin (CCK) analogue, Sincalide, was then administered followed by an additional period of imaging. Computer quantification of gallbladder emptying was also performed FINDINGS: There is prompt accumulation of activity within the liver and normal subsequent excretion via the biliary ductal system into the small bowel. The gallbladder first visualizes at about 15 minutes after radiopharmaceutical injection and progressively fills. After Sincalide administration, there is prompt contraction of the gallbladder with further anterograde transit of activity into the small bowel. The gallbladder ejection fraction is calculated to be 98 % (normal above 38%). IMPRESSION: Normal hepatobiliary imaging with no sign of cystic duct obstruction or biliary dyskinesia. This study was interpreted at [facility]. FINAL REPORT Dictated: 04/22/2018 12:37 pm Brianna Yee MD Signed (Electronic Signature): 04/22/2018 12:37 pm Signed by: Brianna Yee MD Technologist: DRISS US ABDOMEN, LIMITED Observed: 04/06/2018 Status: F Source: [facility] 6:56 AM [facility] REPOSITORY Exam Date/Time: 04/06/2018 07:37 EDT Reason for Exam: RUQ ABD PAIN ATTN:LIVER/GB;Abdominal pain Report STUDY: US Abdomen, Limited; 04/06/2018 7:37 am INDICATION: Abdominal pain. COMPARISON: None. ACCESSION NUMBER(S): [id number] ORDERING CLINICIAN: Vijay Alfaro TECHNIQUE: Multiple grayscale ultrasonographic images were obtained through the right upper quadrant. FINDINGS: LIVER: There is diffuse hyperechogenicity of the liver, most consistent with fatty infiltration. No focal hepatic mass is seen. GALLBLADDER: The gallbladder is nondilated without evidence of gallstones, wall thickening or pericholecystic fluid. No ultrasonographic Tinoco's sign was elicited. BILIARY TREE: There is no significant intra or extrahepatic biliary dilatation present, with the common bile duct measuring at up to 4 mm PANCREAS: The visualized portions of the pancreas are within normal limits, without evidence of focal masses. RIGHT KIDNEY: Screening evaluation of the right kidney demonstrates no evidence of hydronephrosis. IMPRESSION: 1. No ultrasonographic evidence of acute cholecystitis or biliary dilatation. Exam Date/Time: 04/06/2018 07:37 EDT Report 2. Diffuse hyper echogenicity of the liver, most consistent with fatty infiltration. FINAL REPORT Dictated: 04/06/2018 9:07 am Alejandro Melchor MD Signed (Electronic Signature): 04/06/2018 9:07 am Signed by: Alejandro Melchor MD Technologist: RODNEY TSH Collected: 03/31/2018 Status: F Source: [facility] 8:41 AM [facility] REPOSITORY TYPE CODE TESTS RESULT OUT OF RANGE REFERENCE UNITS LAB [id number](LO 0.30-5.60 mIU/m INC) Normal TSH 0.74 Performed By: #### [id number] #### [employer] [address] [place] [id number] PULMONARY VISIT REPORT Observed: 03/16/2018 Status: F Source: AYR 1:[address] [facility] REPOSITORY Pulmonary Medicine of [address] [place] [address] OFFICE VISIT Date of Service: 03/16/18 MR#: [id number] Acct: [id number] Name: LOLA DREW Rep #: [id number] : 1950 Provider: Dwight Valadez D.O. Age/Sex: 67/F Location: [facility] [place] Status: Signed Assessment AND Plan 1. 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 Therefore, the patient will be transition from monotherapy ICS to Advair HFA. She will continue to utilize her albuterol on an as-needed basis. Medication refills have been provided accordingly. The patient was also provided with a spacer at today's office visit. She will follow-up with our nurse practitioner in 2 months to assess her symptom response to therapy. The patient will be due for repeat pulmonary function testing this summer. Orders for repeat PFTs can be placed at her follow-up office visit. The patient has been advised to call this office with any worsening in her breathing quality. 2. JOHNATHAN (obstructive sleep apnea) G47.33 Plan The patient is clinically benefiting from the use of her nocturnal CPAP therapy. Ongoing compliance has been emphasized. 3. Allergic rhinitis J30.9 Plan Patient has been advised to continue to utilize Flonase and Singulair as ordered. Plan Detail Other Medications New: Refilled: albuterol sulfate HFA 90 mcg/actuation (Vento2 puffs Inhalation Q6H PRN shortness of linus omar HFA) th or wheezing Discontinued: fluticasone furoate 100 mcg/actuation (Arnuity Ellipta) Disconti1 inh Inhalation QDAY nued Reason: Order Changed Follow Up 2 Months (CSM) HPI HPI Comments Details: The patient is a 67-year-old female who presents to the clinic today for a routine scheduled follow-up office visit due to underlying COPD/asthma overlap syndrome and obstructive sleep apnea. If you recall, the patient relocated from [place] 7 years ago, where she had been following with a family practice nurse practitioner in [place]. She has a history of asthma, along with a history of seasonal allergic rhinitis and obstructive sleep apnea. She was initially diagnosed with asthma sometime in childhood. She does have a 10-gxdn-kfsf smoking history but quit completely 2016. 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 Sleep study dated December 2008 demonstrated an AHI of 24. She was previously prescribed CPAP with a pressure setting of 9 cm of water. Pulmonary function testing completed in June 2017 demonstrated the presence of a partially reversible moderate large airways obstructive ventilatory defect with associated hyperinflation, air trapping and preserved diffusing capacity. The patient's nocturnal CPAP compliance report was personally reviewed at today's office visit. Over the last 30 days, the patient has demonstrated 100% compliance with use. She is currently utilizing her CPAP just over 9 hours per night. She has a pressure setting of 9 cm of water. Residual AHI was noted to be 1.6. No significant air leaks were noted. Today, the patient reports slight decompensation in her breathing quality since spring started due to seasonal allergies. She reports occasional chest tightness and wheezing. She has been experiencing intermittent watery eyes and coughing, along with postnasal drip. She is currently utilizing Singulair and Flonase daily. She remains compliant with the use of Arnuity and as needed albuterol. Recently, she reports she has been utilizing her albuterol 2-3 times per day. She was previously prescribed both Advair and Spiriva and reported improvement in breathing quality on those medications. Her weight has been stable. She denies fevers, chills or night sweats. She denies chest pain, dizziness or lightheadedness. Intake Vital Signs03/16/18 Height 5 ft 4 in 03/16/18 Weight: 230 lb Intake Visit Reasons: 6 M FU [facility] Vendor: [employer] Accompanied by: Self Allergies amoxicillin Allergy (Mild, Verified 03/16/18 12:27) Hives sulfasalazine [From Sulfazine] Allergy (Mild, Verified 03/16/18 12:27) Hives Medications cholecalciferol (vitamin D3) 1,000 unit capsule 1,000 unit PO QDAY 03/11/18 [History Confirmed 03/11/18] duloxetine 60 mg capsule,delayed release 60 mg PO QDAY 03/11/18 [History Confirmed 03/11/18] furosemide 40 mg tablet 40 mg PO QDAY 03/11/18 [History Confirmed 03/11/18] levothyroxine 50 mcg capsule 50 mcg PO QDAY 03/11/18 [History Confirmed 03/11/18] montelukast 10 mg tablet 10 mg PO QPM 03/11/18 [History Confirmed 03/11/18] multivit with min-folic acid-lutein 400 mcg-250 mcg chewable tablet tab PO 03/11/18 [History Confirmed 03/11/18] potassium chloride ER 20 mEq tablet,extended release 20 meq PO QDAY 03/11/18 [History Confirmed 03/11/18] simvastatin 40 mg tablet 40 mg PO QPM 03/11/18 [History Confirmed 03/11/18] trazodone 50 mg tablet 50 mg PO QDAY 03/11/18 [History Confirmed 03/11/18] albuterol sulfate HFA 90 mcg/actuation aerosol inhaler 2 puff INHALATION Q6H PRN #18 g 03/16/18 [Rx Confirmed 03/16/18] fluticasone-salmeterol 230 mcg-21 mcg/actuation HFA aerosol inhaler 2 puff INHALATION BID #1 device 03/16/18 [Rx Confirmed 03/16/18] PFSH Medical History Emphysema lung (Chronic) Vitamin D deficiency (Chronic) Osteopenia (Chronic) GERD (gastroesophageal reflux disease) (Chronic) Depression (Chronic) JOHNATHAN (obstructive sleep apnea) (Chronic) Insomnia (Chronic) Hypercholesterolemia (Chronic) Hypothyroidism (Chronic) Seborrheic keratosis (Chronic) Lentigo (Chronic) Hemangioma of skin (Chronic) Neurotic excoriations (Chronic) Neoplasm of uncertain behavior of skin (Chronic) Personal history of other malignant neoplasm of skin (Chronic) Actinic keratosis (Chronic) Asthma (Chronic) Obesity (Chronic) Nicotine dependence in remission (Chronic) COPD (chronic obstructive pulmonary disease) (Chronic) Allergic rhinitis (Chronic) Surgical History History of sinus surgery (Resolved) History of partial hysterectomy (Resolved) Family History Mother Cancer Father Asthma Heart disease Myocardial infarction Sister Asthma Hypertension Seasonal allergies Social History Smoking Status: Former smoker second hand exposure: Yes alcohol intake: current alcohol intake frequency: holidays/special occasions only substance use type: does not use caffeine: Yes Review of Systems Const CONSTITUTIONAL: Positive headache(s); negative anorexia, body ache, chills, daytime sleepiness, fever(s), night sweats, oral thrush, stops breathing during sleep, weight loss, sleeping in chair, fatigue, weight loss, weight gain, frequent colds, seasonal allergies, other or orthopnea EETM Ear Nose Throat Mouth: Positive hearing normal, hoarseness and headache(s); negative hard of hearing, dry mouth in morning, change in vision, itchy eyes, eye pain, swallowing Difficulty, ear pain, nose bleed, mouth pain, nasal congestion, nasal discharge, post nasal drip, sinus pain, sinus pressure, sore throat or other (watery eyes) Cardio Cardiovascular: Negative chest pain, chest pain at rest, chest pain with activity, irregular heart rhythm, edema, shortness of breath when lying down, palpitations, murmur or other Resp Respiratory: Positive as per HPI, wheezing and cough cough: Positive productive color: Positive thick and white; negative shortness of breath, pain with cough, chest congestion, chest tightness, pain on inspiration, inhalers, increase use of rescue inhalers, snoring, apnea or other Gastro Gastrointestional: Negative bloody stools, change in appetite, difficulty swallowing, reflux, hematemesis, melena stool, loose stool, constipation or other Genitourinary: Negative blood in urine, nocturia, pain with urination or other Musc Musculoskeletal: Negative body pain, back pain, neck pain or other Skin/Breast Skin/Breast: Negative dry skin, itching, rash, unusual bruising, breast lump or other Neuro Neurological: Negative restless legs, confusion, weakness or other Psych Psychocological: Negative abnormal sleep pattern, anxiety, thoughts of hurting self/others, hopelessness or other Lymph Lymphatic: Negative easy bleeding, easy bruising, swollen lymph nodes or other Exam Const Constitutional: Positive conversant, cooperative, in no acute respiratory distress, well developed, well nourished and good hygiene Head Head: Positive normocephalic and atraumatic; negative cyanosis of lips/distal nose Eyes Eye: Positive clear conjunctiva; negative nystagmus or scleral abnormality Ears Ear: Positive hearing normal and external ears normal; negative hard of hearing Nose Nose: Positive external nose normal; negative epistaxis Mouth Mouth: Positive oral mucosae normal and posterior oropharynx is adequate; negative no lesions or post nasal drip Mallampati Score: II: Mallampati Score Neck Neck: Positive normal visual inspection and trachea midline; negative lymphadenopathy Chest Wall Chest: Positive symmetric chest movement Normal AP diameter. Resp lung sounds: Positive diminished; negative wheezes, rhonchi or rales Cardio Cardiac: Positive regular rate, regular rhythm, S1 normal and S2 normal; negative rub, gallop or murmur GI GI: Positive normal bowel sounds Soft without distention Genitourinary: Positive deferred Musc Musculoskeletal: Positive steady gait Skin Pulmonary Skin Exam: Positive intact; negative lesion, ulcers, dermal atrophy or rash Pulses Pulse: Yes Pedal pulses present: Extremities Extremities: No clubbing, No cyanosis, No edema Neuro Neurologic: Yes conversant, Yes no focal neuro deficits, Yes cooperative Lymph Lymphatic: No lymphadenopathy Psych Appearance: Positive grossly normal Mental Status: Positive mental status grossly normal Mood: Positive congruent mood Affect: Positive normal affect Coding Level of Care Code Off vis,est,level 3 Diagnoses 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 JOHNATHAN (obstructive sleep apnea) G47.33 Allergic rhinitis J30.9 03/16/18 1306 <Electronically signed by Dwight Valadez DO> Date Dwight Valadez [place] Signature: Date (if applicable) CC: Vijay Alfaro MD [facility] Collected: 03/09/2018 Status: F Source: CHRISTIAN 8:01 AM [facility] REPOSITORY TYPE CODE TESTS RESULT OUT OF RANGE REFERENCE UNITS LAB 50955940(L 70-99 mg/dL OINC) High Glucose Lvl 113 LAB 66143651(L 8.4-10.2 mg/dL OINC) Calcium Normal Lvl 9.4 LAB 57245219(L 136-145 mEq/L OINC) Sodium Normal Lvl 139 LAB 06248999(L 3.5-5.1 mEq/L OINC) Normal Potassium Lvl 4.1 LAB 46015914(L 98-107 mEq/L OINC) Chloride Normal 102 LAB 90302993(L 24.0-30.0 mEq/L OINC) CO2 Normal 27.9 LAB 88568641(L 7-18 mg/dL OINC) BUN Normal 16 LAB 8458311(LO 0.6-1.3 mg/dL INC) Normal Creatinine 0.9 LAB 46824833(L 42-121 Int._Unit/ OINC) L Alk Phos Normal 47 LAB 15846022(L 0.2-1.0 mg/dL OINC) Bili Normal Total 0.6 LAB 99909651(L 3.2-5.0 G/DL OINC) Albumin Normal Lvl 3.9 LAB 90402395(L 6.4-8.3 G/DL OINC) Total Normal Protein 6.5 LAB 15212052(L 10-40 Int._Unit/ OINC) L ALT Normal 25 LAB 23702012(L 10-42 Int._Unit/ OINC) L AST Normal 22 LAB 11070154(L 5.4-30.0 ratio OINC) Normal BUN/Creat Ratio 17.8 LAB 26659883(L 2.0-4.0 G/DL OINC) Globulin Normal 2.6 LAB 94984521(L 1.1-1.9 ratio OINY) A/G Normal Ratio 1.5 Performed By: #### [id number] #### GABI [employer] [facility] [place] [id number] TSH Collected: 03/09/2018 Status: F Source: CHRISTIAN 8:01 [facility] REPOSITORY TYPE CODE TESTS RESULT OUT OF RANGE REFERENCE UNITS LAB 39265301(LO 0.30-5.60 mIU/m INC) Normal TSH 2.46 Performed By: #### [id number] #### GABI [employer] [address] [place] [id number] EGFR Collected: 03/09/2018 Status: F Source: CHRISTIAN 8:01 [facility] REPOSITORY Order Comment: Order added by Discern Expert. TYPE CODE TESTS RESULT OUT OF RANGE REFERENCE UNITS LAB 23454159(LO mL/min/1.73 INC) m2 Normal eGFR >60 LAB 90798196(LO mL/min/1.73 INC) m2 Normal eGFR AA >60 Performed By: #### [id number] #### GABI [employer] [address] [place], [place] [id number] LIPID PROFILE Collected: 03/09/2018 Status: F Source: CHRISTIAN 8:01 [facility] REPOSITORY TYPE CODE TESTS RESULT OUT OF RANGE REFERENCE UNITS LAB 02585775(LO 50-200 mg/dL INC) Normal Chol 140 Result Comment: TOTAL CHOLEESTEROL: <200 NORMAL 200 - 239 BORDERLINE HIGH >240 HIGH LAB 54863244(LOINC) >=41 mg/dL Normal HDL 63 LAB 28135575(LOINC) 0-130 mg/dL Normal LDL 57 Result Comment: <100 OPTIMAL 100-129 NEAR / ABOVE OPTIMAL 130-159 BORDERLINE HIGH 160-189 HIGH >190 VERY HIGH CALC LDL NOT VALID WHEN TRIGLYCERIDE IS >400 MG/DL LAB 37038868(LOINC) 35-150 mg/dL Normal Trig 100 Result Comment: <150 NORMAL 150-199 BORDERLINE HIGH 200-499 HIGH >500 VERY HIGH LAB 07498761(LOINC) Normal VLDL 20 Performed By: #### [id number] #### GABI [employer] [facility] [place] [id number] CBC W/ AUTO DIFF Collected: 03/09/2018 Status: F Source: [place] [address]:01 [facility] REPOSITORY TYPE CODE TESTS RESULT OUT OF RANGE REFERENCE UNITS LAB 02865055(L 3.6-11.0 E3/mcL OINC) Normal WBC 5.1 LAB 39511346(L 3.90-5.40 E6/mcL OINC) Normal RBC 4.16 LAB 30643969(L 12.0-16.0 G/DL OINC) Normal Hgb 13.3 LAB 75587379(L 36.0-48.0 % OINC) Normal Hct 38.8 LAB 38783101(L 11.5-14.5 % OINC) Normal RDW 13.7 LAB 44905230(L 27.0-31.0 pg OINC) High MCH 31.9 LAB 22969094(L 33.0-37.0 G/DL OINC) Normal MCHC 34.2 LAB 52725674(L 78.0-100.0 fL OINC) Normal MCV 93.3 LAB 45431679(L 7.4-11.0 fL OINC) Normal MPV 10.0 LAB 67100670(L 130-400 E3/mcL OINC) Normal Platelet 177 Performed By: #### [id number] #### GABI [employer] [address] [place] [address] MORPH Collected: 03/09/2018 Status: F Source: CHRISTIAN 8: [facility] REPOSITORY Order Comment: Order Added by Discern Expert. TYPE CODE TESTS RESULT OUT OF REFERENCE UNITS RANGE LAB 14556152( LOINC) RBC Morph SEE Normal MORPHOLOGY LAB 00165020( LOINC) 1+ Normal Anisocytosis Performed By: #### [id number] #### GABI [employer] [address] [place] [address] ZZPLT MORPH Collected: 03/09/2018 Status: F Source: CHRISTIAN 8:01 [facility] REPOSITORY TYPE CODE TESTS RESULT OUT OF RANGE REFERENCE UNITS LAB 52648236(L OINC) Normal Platelet NORMAL Estimate LAB 75150858(L OINC) Normal Platelet Morph ENLARGED Performed By: #### [id number] #### GABI [employer] [address] [place] [address] AUTO DIFF Collected: 03/09/2018 Status: F Source: CHRISTIAN 8:01 [facility] REPOSITORY Order Comment: Order Added by Discern Expert. TYPE CODE TESTS RESULT OUT OF RANGE REFERENCE UNITS LAB 71658326(L 37.0-75.0 % OINC) Normal Neutro Auto 48.1 LAB 29633902(L 20.0-55.0 % OINC) Normal Lymph Auto 41.2 LAB 85201098(L 0.0-10.0 % OINC) Normal [place] Auto 7.3 LAB 69953852(L 0.0-11.0 % OINC) Normal Eos Auto 2.4 LAB 36484143(L 0.0-2.0 % OINC) Normal Basophil Auto 1.0 LAB 74603563(L 1.4-6.5 E3/mcL OINC) Normal Neutro 2.5 Absolute LAB 61829302(L 1.2-3.4 E3/mcL OINC) Normal Lymph Absolute 2.1 LAB 60740291(L 0.0-0.7 E3/mcL OINC) Normal [place] Absolute 0.4 LAB 61281910(L 0.0-0.7 E3/mcL OINC) Normal Eos Absolute 0.1 LAB 56948808(L 0.0-0.2 E3/mcL OINC) Normal Basophil 0.1 Absolute Performed By: #### 1764765 #### [place] [address] ALLERGIES ALLERGIES DATE TYPE / CODE NAME / CODE REACTION SEVERITY SOURCE 11/19/2018 Drug sulfasalazine/F006 Hives [place] Allergy/416 454043(RXNORM) [facility] 494386([facility]) Repository 11/19/2018 Drug amoxicillin/K14054 Hives [place] Allergy/416 3675(RXNORM) Community 266918([facility]) Repository Drug/676359 Augmentin [id number] Jewish 003(SNOMED [id number] [facility]) 262F3B System Repository Drug/000105 amoxicillin 435160308 [facility] 003([facility]) System Repository Drug/241790 sulfa drugs 784142691 Jewish 003([facility]) System Repository Drug/918825 Augmentin Jewish 003([facility]) System Repository ENCOUNTERS ENCOUNTERS ADMIT/DISCHARGE ACCOUNT NUMBER ADMITTING ENCOUNTER LOCATION SOURCE CLASS 11/19/2018 [id number] Ambulatory [facility] Hospital ing:LABSPEC Repository 11/19/2018/11/19/19 [id number] Ambulatory BMSBuilding:B [place] 19 [facility] Repository 07/07/2018/07/07/20 [id number] [facility] Medical [address] [place] Repository Med AssocRoom: Room 1 06/25/2018 [id number] Ambulatory [facility] Hospital ing:PSN Repository 06/25/2018 [id number] Ambulatory BMSBuilding:[facility] Repository 06/25/2018 [id number] [facility] ing:[facility] Repository 06/25/2018 [id number] Ambulatory [facility] [place] Repository Med Assoc 06/25/2018/06/25/20 [id number] Ambulatory [address] [place] Repository Med Assoc 06/24/2018/06/24/20 [id number] Ambulatory BMSBuilding:B [place] 18 MS.[facility] Repository 06/19/2018 [id number] Ambulatory BMSBuilding:W [facility] Repository 06/18/2018 [id number] Ambulatory [facility] Hospital ing:PSN Repository 05/14/2018 [id number] Ambulatory [facility] Hospital ing:PAVLAB Repository 05/14/2018/05/14/20 [id number] Ambulatory BMSBuilding:B [place] 18 [facility] Repository 05/01/2018/05/01/[id number] Regional ing:[facility] Repository 04/22/2018/04/22/20 [id number] [facility] Regional ing:[facility] Repository 04/22/2018 [id number] Ambulatory [address] [place] [address] Repository 04/09/2018/04/09/20 [id number] [place], Ambulatory Medical [facility] 18 [address] [facility] [place] Repository Med AssocRoom: Room 3 04/06/2018/04/06/20 [id number] [place], Ambulatory [facility] Regional ing:[facility] Repository 04/06/2018 [id number] Ambulatory [address] [place] [address] Repository 03/31/2018/03/31/20 [id number] [place], Ambulatory Jewish [facility] Hospital[facility] Regional ing:[facility] Repository 03/31/2018 [id number] Ambulatory [address] [place] [address] Repository 03/20/2018/03/20/20 [id number] Ambulatory Medical [facility] [place] Repository Med AssocRoom: Room 1 03/16/2018/03/16/20 [id number] Ambulatory BMSBuilding:Gunnar Aaron 18 [facility] Repository 03/09/2018/03/09/20 [id number] [place], Ambulatory [facility] ing:[facility] Repository 01/16/2018/01/17/20 [id number] Ambulatory Medical [facility] [place] Repository Med Assoc PAYERS PAYERS ENCOUNTER GUARANTOR PAYER SUBSCRIBER SOURCE 11/19/2018 LOLA Wheeler Primary LOLA Aaron [id number] TR Insurance:MEDICARE HOOTMANDOB: [facility] [address] PART A BPolicy Number: [id number], [place] [address]Fjt: [id number] Repository Date:2018-11-19 () 11/19/2018 Secondary LOLA Aaron Insurance:AARPPolicy HOOTMANDOB: [facility] Number: [id number] [id number] Repository Date:2591-60-84LV [address], [place] [address]MZ: 11/19/2018 Tertiary NOT GIVENUNK [place] Insurance:SELF PAY [facility] Number: Effective Repository Date:2018-11-19 11/19/2018 LOLA L Primary LOLA L [place] [id number] TR Insurance:MEDICARE HOOTMANDOB: Community [address] [place] [address] PART A BPolicy Number: [id number], [place] [address]Rwe: [id number] Repository Date:2018-11-18 () 11/19/2018 Secondary LOLA L Emm[place] Insurance:AARPPolicy HOOTMANDOB: Community Number: [id number] [id number] Repository Date:4237-15-64[address]NUJF, [place] [address]GX: 11/19/2018 Tertiary NOT GIVENUNK [place] Insurance:SELF PAY [facility] Number: Effective Repository Date:2018-11-18 07/07/2018 LOLA L Primary Insurance:1500 LOLA L Jewish HOOTMANDOB: MEDICARE PRIMARYPolicy HOOTMANDOB: [facility] Number: Effective [id number] Date:2018-07-07 - [facility] Repository [address] [place] [address] [id number] [address] [place] [address] Name:CD:[id number] [place], [place] [id number]: [address] [address]OITYRDAOF, [place] [address]Zdq: [phone]: [phone] () [phone] () () 07/07/2018 Secondary LOLA L Jewish Insurance:1500 HOOTMANDOB: [facility] Number: [id number] System Effective [facility] Repository Date:2018-07-07 - [address] [place] [address] [id number] , [place] Name:CD:[id number]: [address]ZWBZBG, [place] [address]WP: [phone] () 000-0000 () 06/25/2018 LOLA L Primary LOLA L [place] [id number] TR Insurance:MEDICARE HOOTMANDOB: Community [address] PART A BPolicy Number: [id number], [place] [address]Tsl: [id number] Repository Date:2018-06-24 () 06/25/2018 Secondary LOLA L Emmons Insurance:AARPPolicy HOOTMANDOB: Community Number: [id number] Hospital [id number] Repository Date:3012-18-66GZ [address]MUQWH, [place] [address]FY: 06/25/2018 Tertiary NOT GIVENUNK Emm[place] Insurance:SELF PAY [facility] Number: Effective Repository Date:2018-06-24 06/25/2018 LOLA L Primary LOLA L [place] [id number] TR Insurance:MEDICARE HOOTMANDOB: [facility] PART A BPolicy Number: [id number], [place] [address]Kpf: [id number] Repository Date:2018-06-24 () 06/25/2018 Secondary LOLA L [place] Insurance:AARPPolicy HOOTMANDOB: Community Number: [id number] Hospital [id number] Repository Date:1918-85-25BE [address]FVTSXFX, [place] [address]TH: 06/25/2018 Tertiary NOT GIVENUNK [place] Insurance:SELF PAY [facility] Number: Effective Repository Date:2018-06-25 06/25/2018 LOLA L Primary Insurance:1500 LOLA L Jewish HOOTMANDOB: MEDICARE PRIMARYPolicy HOOTMANDOB: [facility] [id number] Number: Effective [id number] System [facility] [address] Date:2018-06-25 - [facility] [address] Repository [address] [id number], [place] Name:CD:[id number] , [place] [id number]: [address] [address]FAFFKNYLJ, [place] [address]Fvx: [phone]: [phone] (HP) [phone] (HP) (WP) 06/25/2018 Secondary LOLA L Jewish Insurance:1500 HOOTMANDOB: [facility] Number: [id number] System Effective [facility] [address] Repository Date:2018-06-25 - [address] [place] [address] [id number] , [place] Name:CD:[id number] O [id number]: [address]BUAHWW, [place] [address]WP: [phone] (HP) 000-0000 (WP) 06/25/2018 LOLA L Primary Insurance:1500 LOLA L Jewish HOOTMANDOB: MEDICARE PRIMARYPolicy HOOTMANDOB: [facility] Number: Effective [id number] Date:2018-06-25 - [address] Repository [address] [place] [address] [id number] [address] [place] [address] Name:CD:[id number] O [place] [id number]: [address] [address]RGKBWCOJH [place] [id number]: [phone]: [phone]) (HP) [phone] (HP) (WP) 06/25/2018 Secondary LOLA L Jewish Insurance:1500 HOOTMANDOB: [facility] Number: [id number] System Effective [facility] Repository Date:2018-06-25 - [address] [place] [address] [id number] , [place] Name:CD:[id number] O [id number]: [address]OMITRPJ, [place] [address]XN: [phone] (HP) 000-0000 (WP) 06/25/2018 LOLA L Primary Insurance:1500 LOLA L Jewish HOOTMANDOB: MEDICARE PRIMARYPolicy HOOTMANDOB: [facility] Number: Effective [id number] System [facility] [address] Date:2018-06-25 - [address] Repository [address] [place] [address] [id number] Name:CD:[id number] [place], [place] [id number]: [address] [address]KJSBPWEGU, [place] [id number]: [phone]: [phone] (HP) [phone] () (WP) 06/25/2018 Secondary LOLA L Jewish Insurance:1500 HOOTMANDOB: [facility] AARP/[facility] Number: [id number] System Effective [facility] [address] Repository Date:2018-06-25 - [address] [place] [address] [id number] , [place] Name:CD:[id number]: [address]XEVQZGA, [place] [address]WP: [phone] () 000-0000 () 06/24/2018 LOLA L Primary LOLA L Emmons [id number] [address] Insurance:MEDICARE HOOTMANDOB: [address] PART A BPolicy Number: [id number], [place] [address]Rzo: [id number] Repository Date:2018-05-14 () 06/24/2018 Secondary LOLA L [place] Insurance:AARPPolicy HOOTMANDOB: Community Number: [id number] Hospital [id number] Repository Date:1028-22-01ZL [facility] [address]MNRIPDP, [place] [address]TJ: 06/24/2018 Tertiary NOT GIVENUNK [place] Insurance:SELF PAY [facility] Number: Effective Repository Date:2018 06/19/2018 LOLA L Primary LOLA L [place] [id number] Insurance:MEDICARE HOOTMANDOB: Community [address] BPolicy Number: [id number], [place] [address]Hei: [id number] Repository Date:2018-05-14 () 06/19/2018 Secondary LOLA L Galen Insurance:AARPPolicy HOOTMANDOB: Community Number: [id number] Hospital [id number] Repository Date:[id number] [address]VNFDDXM, [place] [address]DR: 06/19/2018 Tertiary NOT GIVENUNK Galen Insurance:SELF PAY [facility] Number: Effective Repository Date:2018-06-19 06/18/2018 LOLA L Primary LOLA L Emmons [id number] TR Insurance:MEDICARE HOOTMANDOB: Community [address] BPolicy Number: [id number], [place] [address]Gwe: [id number] Repository Date:2018-05-14 () 06/18/2018 Secondary LOLA L Emmons Insurance:AARPPolicy HOOTMANDOB: Community Number: [id number] Hospital [id number] Repository Date:2017-27-74ET [address]KNKFVGG, [place] [address]ZZ: 06/18/2018 Tertiary NOT GIVENUNK Galen Insurance:SELF PAY [facility] Number: Effective Repository Date:2018-05-14 05/14/2018 LOLA L Primary LOLA L Emmons [id number] TR Insurance:MEDICARE HOOTMANDOB: Community [address] BPolicy Number: [id number], [place] [address]Maq: [id number] Repository Date:2018-05-14 () 05/14/2018 Secondary LOLA L Galen Insurance:AARPPolicy HOOTMANDOB: Community Number: [id number] Hospital [id number] Repository Date:6889-31-97NM [address]PWXVGPR, [place] [address]HF: 05/14/2018 Tertiary NOT GIVENUNK Emmons Insurance:SELF PAY [facility]: Effective Repository Date:2018-05-14 05/14/2018 LOLA L Primary LOLA L Emmons [id number] Insurance:MEDICARE HOOTMANDOB: Community [address] PART A BPolicy Number: [id number] Hospital [facility] [id number] Repository [place], [place] [address]Oju: Date:2018-03-16 () 05/14/2018 Secondary LOLA L Galen Insurance:AARPPolicy HOOTMANDOB: [facility] Number: [id number] Hospital [id number] Repository Date:[id number] [facility] 436961MLISPJE, [place] [address]CT: 05/14/2018 Tertiary NOT GIVENUNK Galen Insurance:SELF PAY [facility] Number: Effective Repository Date:2018-05-12 05/01/2018 LOLA L Primary Insurance:1500 LOLA L Jewish HOOTMANDOB: MEDICARE PRIMARYPolicy HOOTMANDOB: [facility] [id number] Number: Effective [id number] System [facility] Date:2018-03-20 - [facility] [address] Repository [facility] [id number] Name:CD:[id number] [place], [place] [id number]: [address] [address]IOHWZJLWT, [place] [id number]: [phone]: [phone] (HP) [phone] (HP) () 05/01/2018 Secondary LOLA L Jewish Insurance:1500 HOOTMANDOB: [facility] AARP/[facility] Number: [id number] System Effective [facility] Repository Date:2018-03-20 - [address] [place] [address] [id number] , [place] Name:CD:[id number]: [address]CUBVJHZ, [place] [address]WP: [phone]) (HP) [phone] (WP) 04/22/2018 [facility] HOOTMANDOB: Insurance:MedicarePoli HOOTMANDOB: [facility] cy Number: Effective [id number] System [facility] Date:2018-04-09 - [facility] [address] Repository [address] [place] [address] [id number] [address] [place] [address] Name:CD:[id number] [place], [place] [id number]: [id number], [place] [id number]: [phone]: [phone]) (HP) [phone] (HP) (WP) 04/22/2018 Secondary [facility] Insurance:AARPPolicy HOOTMANDOB: [facility] Number: Effective [id number] System Date:2018-04-09 - [facility] [address] Repository [id number] [address] [place] [address] Name:CD:[id number] [place] 088023BWXDLOE, [place] [id number]: [phone]: [phone] (HP) (WP) 04/22/2018 [facility] HOOTMANDOB: Insurance:MedicarePoli HOOTMANDOB: Hospitals cy Number: [id number] Repository [facility] [address] [address] [id number] [place] [address] Date:Plan Name:Noman Whalen [address] [place] [id number]: [phone]: (JC) (HP) 04/22/2018 [facility] Insurance:MedicarePoli HOOTMANDOB: Hospitals cy Number: [id number] Repository [id number] Date:Plan Name:Noman Maher [address] [place] [address] [phone]: (HP) 04/22/2018 [facility] Insurance:AARP HOOTMANDOB: Hospitals [facility] [id number] Repository Number: [facility] [address] [id number] [address] [place] [address] Date:Plan Name:[place], [place] [phone]: (HP) 04/09/2018 LOLA L Primary Insurance:1500 LOLA Sinclair HOOTMANDOB: MEDICARE [facility] HOOTMANDOB: [facility] Number: Effective [id number] System [facility] [address] [address] Date:2018-04-09 - [facility] [address] Repository [facility] [id number] [address] [place] [address] Name:CD:[id number] [place], [place] [id number]: [address] [place] [id number]: [phone]: [phone]) (HP) [phone] (HP) (WP) 04/09/2018 Secondary LOLA Sinclair Insurance:1500 HOOTMANDOB: [facility] A[facility] Number: [id number] System Effective [facility] Repository Date:2018-04-09 - [address] [id number] , [place] Name:CD:[id number]: [address]TKXPPFG, [place] [address]KM: [phone]) (HP) [phone] (WP) 04/06/2018 LOLA L Primary LOLA Sinclair HOOTMANDOB: Insurance:MedicarePoli HOOTMANDOB: [facility] cy Number: Effective [id number] System [facility] Date:2018-04-03 - [facility] [address] Repository 14[facility] [id number] [address] [place] [address] Name:CD:[id number] [facility] [place] [id number]: [id number], [place] [id number]: [phone]: [phone]) (AA) [phone] (HP) (WP) 04/06/2018 [facility] Insurance:[facility]y HOOTMANDOB: [facility] Number: Effective [id number] System Date:2018-04-03 - [facility] Repository [id number] Name:CD:[id number] [facility] [place] [address]KNOHXLM, [place] [id number]: [phone]: [phone] (HP) (WP) 04/06/2018 [facility] HOOTMANDOB: Insurance:MedicarePoli HOOTMANDOB: Hospitals cy Number: [id number] Repository [facility] [id number] Date:Plan Name:[facility] Marlee [address] [place] [address] [id number]: [phone]: (HP) () 04/06/2018 [facility] Insurance:MedicarePoli HOOTMANDOB: [facility] cy Number: [id number] Repository [id number] Date:Plan Name:[facility] Gunnar [address] [place] [address] [phone]: () 04/06/2018 [facility] Insurance:AARP HOOTMANDOB: Hospitals [facility] [id number] Repository Number: [facility] [id number] Date:Plan Name:[place], [place] [phone]: () 03/31/2018 [facility] HOOTMANDOB: Insurance:MedicarePoli HOOTMANDOB: [facility] cy Number: Effective [id number] System [facility] [address] Date:2018-03-31 - [facility] [address] Repository 14[address] [id number] Name:CD:[id number] EDIL [place] [phone]: 184975MSIQSJUTOQ, [place] [id number]: [phone]: [phone]) (HP) [phone] (HP) (WP) 03/31/2018 [facility] Insurance:AARPPolicy HOOTMANDOB: [facility] Number: Effective [id number] System Date:2018-03-31 - [facility] [address] Repository [id number] [address] [place] [address] Name:CD:[id number] [place], [place] [address]3632MMHZFVF, [place] [phone]: [phone]: [phone] (HP) (WP) 03/31/2018 [facility] HOOTMANDOB: Insurance:MedicarePoli HOOTMANDOB: Hospitals cy Number: [id number] Repository [facility] [address] [id number] [facility] [address] [place] [address] Date:Plan Name:Noman Whalen [address] [place] [id number]: [phone]: (HP) (HP) 03/31/2018 [facility] Insurance:MedicarePoli HOOTMANDOB: Hospitals cy Number: [id number] Repository [id number] Hospital Date:Plan Name:Noman Maher [address] [place] [address] [phone]: (HP) 03/31/2018 [facility] Insurance:AARP HOOTMANDOB: Hospitals SupplementPoly [id number] Repository Number: [facility] [id number] [address] [place] [address] Date:Plan Name:[place], [place] [phone]: () 03/20/2018 LOLA L Primary Insurance:1500 LOLA L Jewish HOOTMANDOB: MEDICARE PRIMARYPolicy HOOTMANDOB: [facility] Number: Effective [id number] System [facility] [address] Date:2017-09-16 - [facility] [address] Repository [address] [place] [address] [id number] [address] [place] [address] Name:CD:[id number] O [place] [id number]: [address] [address]YPBCVZQIG, [place] [id number]: [phone]: [phone] (KP) [phone] (HP) (WP) 03/20/2018 Secondary LOLA L Jewish Insurance:1500 HOOTMANDOB: [facility] AARP/CPolicy Number: [id number] System Effective [facility] Repository Date:2017-09-16 - [address] [place] [address] [id number] , [place] Name:CD:[id number] O [id number]: [address]PNHSTQN, [place] [address]WP: [phone]) (HP) [phone] (WP) 03/16/2018 LOLA L Primary LOLA L Emmons [id number] Insurance:MEDICARE HOOTMANDOB: Community [facility] [address] [address] PART A BPolicy Number: [id number] Hospital 1500[facility] [id number] Repository [place], [place] [address]Qrl: Date:2017-10-13 () 03/16/2018 Secondary LOLA L Emmons Insurance:AARPPolicy HOOTMANDOB: Community Number: [id number] Hospital [id number] Repository Date:2443-58-26CF [address]IFTVONP, [place] [address]YC: 03/16/2018 Tertiary NOT GIVENUNK Galen Insurance:SELF PAY [facility] Number: Effective Repository Date:2017-10-13 03/09/2018 LOLA L Primary LOLA Sinclair HOOTMANDOB: Insurance:MedicarePoli HOOTMANDOB: [facility] cy Number: Effective [id number] System [facility] [address] Date:2018-03-05 - [facility] [address] Repository 1499[facility] [id number] [address] [place] [address] Name:CD:[id number] [place], [place] [id number]: [id number], [place] [id number]: [phone]: [phone]) (HP) [phone] (HP) (WP) 03/09/2018 Secondary LOLA L Jewish Insurance:AARPPolicy HOOTMANDOB: [facility] Number: Effective [id number] System Date:2018-03-05 - [facility] [address] Repository [id number] [address] [place] [address] Name:CD:[id number] [place], [place] [address]88[address]NJHKODB, [place] [id number]: [id number]: [phone] (HP) (WP) 01/16/2018 LOLA L Primary Insurance:1500 LOLA Sinclair HOOTMANDOB: MEDICARE [facility]Lank[facility]au Medical CenterOTMANDOB: [facility] Number: Effective [id number] System [facility] [address] Date:2018-01-16 - [facility] [address] Repository 14[address] [id number] [address] [place] [address] [place] Name:CD:[id number] [place], [place] [id number]: [address] [address]WGOIDQIMA, [place] [id number]: [phone]: [phone] (HP) [phone] (HP) (WP) 01/16/2018 Secondary LOLA Sinclair Insurance:1500 HOOTMANDOB: [facility] AARP/CPolicy Number: [id number] [facility] Repository Date:2018-[address] 5550-64-25Ncrp , [place] Name:CD:[id number] O [id number]: [address]EPCVTST, [place] [address]OQ: [phone]) (HP) [phone] (WP)
== END ==
PROVIDERS: Family Provider Family Medicine; PCP Family Medicine; Referring Provider Nurse Practitioner Acute Care; Visit Provider Nurse Practitioner Acute Care
DX: R06.02 Shortness of breath (principal)
CPT/HCPCS: 87070; 87205

== ENCOUNTER → 2020-05-30 10:06 | Outpatient (CLI) | payer MEDICARE, OTHER, SELFPAY ==
[2020-05-09 12:37] VITALS: BMI 40.6
--- NOTE | 2020-05-30 10:06 | ECHOCS_ITS ---
Reason For Study: DYSPNEA Procedure This was a 2D Doppler, Color Flow transthoracic echocardiogram. The study was technically difficult. Contrast injection was performed. Exam performed in department. Left Ventricle Normal LV size. Left ventricular systolic function is normal. The estimated ejection fraction is 65 %. No evidence for diastolic dysfunction. No regional wall motion abnormalities noted. Right Ventricle Normal RV size. Normal systolic function. Atria Normal left atrium. Normal right atrium. No doppler evidence for ASD. Mitral Valve There is no mitral annular calcification. Normal mitral valve. Mild (1+) mitral valve insufficiency. Tricuspid Valve Normal tricuspid valve. Mild tricuspid valve insufficiency. Right ventricular systolic pressure estimated to be 28 mmHg. Aortic Valve Trisinus/trileaflet aortic valve. Normal aortic valve. Trivial aortic valve insufficiency. Pulmonic Valve The pulmonic valve is not well visualized. Great Vessels Normal sized aortic root. Pericardium/Pleural No pericardial effusion. Medication 22 gauge I.V. with prn adaptor inserted into right arm. Diluted definity 3.5ml given slow IV push to enhance endocardial definition. MMode/2D Measurements & Calculations LVIDd: 5.1 cm IVSd: 0.89 cm Ao root diam: 3.4 cm LVIDs: 3.5 cm LVPWd: 0.69 cm RVDd: 3.7 cm FS: 31.3 % LAV(MOD-bp): 71.5 ml LVAd ap4: 33.1 cm2 SV(MOD-sp4): 76.8 ml LAV(MOD-bp) Indexed: 34.8 ml/m2 EDV(MOD-sp4): 111.3 ml LAV(MOD-sp2): 78.4 ml EDV(sp4-el): 105.3 ml LAV(MOD-sp4): 57.0 ml LVAs ap4: 15.3 cm2 ESV(MOD-sp4): 34.5 ml ESV(sp4-el): 34.0 ml EF(MOD-sp4): 69.0 % EF(sp4-el): 67.7 % SV(sp4-el): 71.3 ml LA A4 area: 19.3 cm2 LA dimension(2D): 4.2 cm RA A4 area: 15.1 cm2 Time Measurements MV dec time: 0.21 sec Doppler Measurements & Calculations MV E max jeff: 82.8 cm/sec Lat Peak E' Jeff: 12.6 cm/sec Med Peak E' Jeff: 11.0 cm/sec MV A max jeff: 56.1 cm/sec E/E' lat: 6.6 E/E' med: 7.5 MV E/A: 1.5 Ao V2 max: 193.9 cm/sec AI max jeff: 339.4 cm/sec LV V1 max: 124.0 cm/sec Ao max P.0 mmHg AI max P.1 mmHg LV V1 max P.2 mmHg AI dec slope: 210.9 cm/sec2 AI P1/2t: 471.2 msec PA V2 max: 124.5 cm/sec TR max jeff: 250.9 cm/sec TR max P.2 mmHg Interpretation Summary The study was technically difficult. Contrast injection was performed. Left ventricular systolic function is normal. The estimated ejection fraction is 65 %. Mild (1+) mitral valve insufficiency. Mild tricuspid valve insufficiency. Trivial aortic valve insufficiency. Right ventricular systolic pressure estimated to be 28 mmHg. No evidence for diastolic dysfunction. Ordering Physician: Dwight Valadez Referring Physician: SETVEN BRUCE Performed By: Claudia Peter, RDCS, RVT
== END ==
PROVIDERS: PCP Family Medicine; Referring Provider Internal Medicine Critical Care Medicine; Visit Provider Internal Medicine Critical Care Medicine
DX: R06.02 Shortness of breath (principal); R06.00 Dyspnea, unspecified; Z98.890 Other specified postprocedural states
CPT/HCPCS: 93306; Q9957; A4216; C8929

== ENCOUNTER → 2020-06-13 07:10 | Outpatient (CLI) | payer MEDICARE, OTHER, SELFPAY ==
[2020-05-09 12:37] VITALS: BMI 40.6
--- NOTE | 2020-06-14 14:11 | PFT ---
INTRODUCTION: The patient is a 69-year-old female who presents for pulmonary function studies secondary to a diagnosis of COPD. Respiratory therapy reports good patient effort. Bronchodilators were used during testing. INTERPRETATION: Forced expiration spirometry demonstrates the presence of a moderate large airways obstructive ventilatory defect. There was a significant response to aerosolized bronchodilators noted. Spirograms are of good quality and do not plateau indicating slow emptying of the lungs. Body plethysmography was performed and revealed an elevated RV to 162% of predicted, indicative of underlying air trapping. Diffusing capacity by single breath CO is mildly reduced at 70% of predicted. When compared to previous pulmonary function studies from June 2018, there has been a decrease in FEV1 by 12% along with a decrease in DLCO by 14%. IMPRESSION: Partially reversible moderate large airways obstructive ventilatory defect with associated air trapping and mild reduction in diffusing capacity. There has been worsening in the patient's PFTs since 2018, as noted above.
== END ==
PROVIDERS: PCP Family Medicine; Referring Provider Internal Medicine Critical Care Medicine; Visit Provider Internal Medicine Critical Care Medicine
DX: J44.9 Chronic obstructive pulmonary disease, unspecified (principal)
CPT/HCPCS: 94060; 94726; 94729

== ENCOUNTER → 2020-06-14 10:13 | Outpatient (CLI) | payer MEDICARE, OTHER, SELFPAY ==
[2020-05-09 12:37] VITALS: BMI 40.6
[2020-06-14 10:47] VITALS: PULSE 63; PULSE 77; PULSE 79; PULSE 89; PULSE 91; PULSE 97; PULSE 98; PULSE 99; O2SAT 93; O2SAT 94; O2SAT 96; O2SAT 97
--- NOTE | 2020-06-15 09:09 | PCM.PSN.6M ---
PSN 6 Minute Walk Test - 6 Minute Walk Test 6 Minute Walk Test: 6 Minute Walk Test PSN:6-Minute Walk Test Start: 06/14/20 10:46 Freq: Status: Active Protocol: RESP.6MINW Document 06/14/20 10:47 CHENJENNIE (Rec: 06/14/20 10:48 RAYMONCHLOEJENNIE [id number]) 6 Minute Walk Test Date Performed 06/14/20 Time Performed 10:30 Height 5 ft 4 in Weight: 237 lb Weight in Pounds 237.[address]: Dwight Valadez Assistive device used: None Pre-test Oxygen Delivery Method Room Air Pulse Ox (%) 96 Pulse Rate (60-100 beats/min) 63 Dyspnea Edwin Scale (0-10) 0.5 Exertion Edwin Scale (6-20) 6 1st minute Oxygen Delivery Method Room Air Pulse Ox (%) 97 Pulse Rate (60-100 beats/min) 77 2nd minute Oxygen Delivery Method Room Air Pulse Ox (%) 94 Pulse Rate (60-100 beats/min) 89 3rd minute Oxygen Delivery Method Room Air Pulse Ox (%) 93 Pulse Rate (60-100 beats/min) 91 4th minute Oxygen Delivery Method Room Air Pulse Ox (%) 94 Pulse Rate (60-100 beats/min) 97 5th minute Oxygen Delivery Method Room Air Pulse Ox (%) 94 Pulse Rate (60-100 beats/min) 98 6th minute Oxygen Delivery Method Room Air Pulse Ox (%) 94 Pulse Rate (60-100 beats/min) 99 Dyspnea Edwin Scale (0-10) 3 Exertion Edwin Scale (6-20) 13 Post-test Oxygen Delivery Method Room Air Pulse Ox (%) 97 Pulse Rate (60-100 beats/min) 79 Full Laps Walked 20 Partial Lap, Number of Tiles Walked 18 Total Distance Walked (ft) 1198 - Interpretation Interpretation: The patient ambulated 1198 feet over the course of 6 minutes beginning on room air without assistive devices or breaks. Pretesting oxygen saturation was noted to be 96% on room air. With ambulation, the amy oxygen saturation was 93%. There was no significant exertional oxygen desaturation. - Recommendations Recommendations: There is no indication for the use of supplemental oxygen at this time.
== END ==
PROVIDERS: PCP Family Medicine; Referring Provider Internal Medicine Critical Care Medicine; Visit Provider Internal Medicine Critical Care Medicine
DX: J44.9 Chronic obstructive pulmonary disease, unspecified (principal)
CPT/HCPCS: 94618

== ENCOUNTER → 2021-08-22 13:15 | Outpatient (CLI) | payer MEDICARE, SELFPAY ==
--- NOTE | 2021-08-22 13:26 | CT_ITS ---
STUDY: LOW DOSE CT LUNG CANCER SCREENING REASON FOR EXAM: Female, 71 years old. Patient smoked 1 pack per day for 50 years. COPD. Asthma. RADIATION DOSAGE (If Supplied By Facility): CTDIvol = ( 3.18 ) mGy, DLP = ( 104.43 ) mGycm TECHNIQUE: No contrast was administered. Low dose technique was utilized (average mAS-38 and kVp 120). 1.25 mm axial source images with a slice interval of 1.25-mm were reconstructed in lung windows. 2.5 mm axial source images with a slice interval of 2.5-mm were reconstructed in lung windows. 5.0 mm axial source images with a slice interval of 5.0-mm were reconstructed in soft tissue windows. Nodule measured using lung windows on PACS and/or independent workstation with automated measurement of minimum and maximum diameter. Nodule measurement reported as average diameter rounded to the nearest whole number. Growth is defined as an increase ins size of greater than 1.5 mm. COMPARISON: None. NODULES: Focal linear density in the medial aspect of the right lung apex suggestive of a scarring. Emphysema: Hyperinflation. Mild increased linear markings in the anterior aspect of the right upper lobe as well as the medial aspect of the left upper lobe suggestive of scarring. There is also evidence of the linear densities suggesting scarring along the medial anterior aspect of the right middle lobe. There is a faint 3 mm nodule in the anterior aspect of the right lower lobe abutting the right major fissure as seen on axial image #150 to mild scarring at the left lung. Endobronchial lesion: None Aorta: Mild atherosclerotic plaque formation of the aortic arch. Coronary arteries: Unremarkable Heart: Unremarkable Pulmonary artery: Unremarkable Mediastinal nodes: Small benign appearing mediastinal lymph nodes. Other chest and abdominal findings: CT/Low Dose CT Lung Screening IMPRESSION: Lung-RADS category 2 - Continue annual screening with LDCT in 12 months. IMPORTANT NOTES FOR USE: ACR Lung-RADS Version 1.1 Assessment Categories Release Date: 2018 Category: Coded 0-4 bases on nodule(s) with highest degree of suspicion. Negative screen is defined as categories 1 and 2; a positive screen is defined as categories 3 and 4. Category 3 and 4A nodules that are unchanged on interval CT should be coded as category 2, and individuals returned to screening in 12 months. Category 4X: Category 3 or 4 nodules with additional imaging findings that increase the suspicion of lung cancer, such as spiculation, GGN that doubles in size in 1 year, enlarged lymph notes, etc. Category Modifiers: S (significant finding unrelated to lung cancer) Electronically Signed: Napoleon Urias MD at 15:40 EDT , Service support ,
== END ==
PROVIDERS: PCP Family Medicine; Referring Provider Internal Medicine Critical Care Medicine; Visit Provider Internal Medicine Critical Care Medicine
DX: F17.211 Nicotine dependence, cigarettes, in remission (principal)
CPT/HCPCS: 71271

== ENCOUNTER 2022-02-06 15:11 | Outpatient (CLI) | payer MEDICARE, SELFPAY | END 2022-02-06 23:59 | disposition home or self-care (01) | LOC: LAB 15:12 | PROVIDERS: PCP Family Medicine; Referring Provider Nurse Practitioner Acute Care; Visit Provider Nurse Practitioner Acute Care | DX: Z00.00 Encounter for general adult medical examination without abnormal findings (principal) ==

== ENCOUNTER → 2022-08-26 | Outpatient (CLI) | payer MEDICARE, SELFPAY ==
--- NOTE | 2022-08-26 12:57 | CT_ITS ---
STUDY: LOW DOSE CT LUNG CANCER SCREENING REASON FOR EXAM: Female, 72 years old. Smoker and gt; 40 pack years. The patient quit 3 years ago. History of COPD and asthma. RADIATION DOSAGE (If Supplied By Facility): CTDIvol = ( 4.02 ) mGy, DLP = ( 140.44 ) mGycm TECHNIQUE: No contrast was administered. Low dose technique was utilized (average mAS-38 and kVp 120). 1.25 mm axial source images with a slice interval of 1.25-mm were reconstructed in lung windows. 2.5 mm axial source images with a slice interval of 2.5-mm were reconstructed in lung windows. 5.0 mm axial source images with a slice interval of 5.0-mm were reconstructed in soft tissue windows. COMPARISON: Comparison is made with prior examination dated 08/22/2021. NODULES: No suspicious nodules are seen. Emphysema: Hyperinflation. Stable increase in markings in the anterior aspect of the right upper lobe as well as the medial aspect of the left upper lobe and lingular segment of the left upper lobe. This is suggestive of scarring. Stable faint 3 mm nodule in the anterior aspect of the right lower lobe abutting the right major fissure. Endobronchial lesion: None Aorta: Atherosclerotic plaque formation. CORONARY ARTERIES: Coronary artery calcification is not seen. Heart: Unremarkable. Pulmonary artery: Unremarkable. Mediastinal nodes: Small benign appearing mediastinal lymph nodes. Other chest and abdominal findings: CT/Low Dose CT Lung Screening IMPRESSION: Lung-RADS category 2 - Continue annual screening with LDCT in 12 months. IMPORTANT NOTES FOR USE: ACR Lung-RADS Version 1.1 Assessment Categories Release Date: 2018 Category: Coded 0-4 bases on nodule(s) with highest degree of suspicion. Negative screen is defined as categories 1 and 2; a positive screen is defined as categories 3 and 4. Category 3 and 4A nodules that are unchanged on interval CT should be coded as category 2, and individuals returned to screening in 12 months. Category 4X: Category 3 or 4 nodules with additional imaging findings that increase the suspicion of lung cancer, such as spiculation, GGN that doubles in size in 1 year, enlarged lymph notes, etc. Category Modifiers: S (significant finding unrelated to lung cancer) Electronically Signed: Napoleon Urias MD at 14:58 EDT ,
== END | disposition home or self-care (01) ==
LOC: CT 12:54
PROVIDERS: PCP Family Medicine; Referring Provider Nurse Practitioner Acute Care; Visit Provider Nurse Practitioner Acute Care
DX: F17.210 Nicotine dependence, cigarettes, uncomplicated (principal)
CPT/HCPCS: 71271

== ENCOUNTER → 2025-05-14 | Outpatient (CLI) | payer OTHER, SELFPAY ==
--- OUTSIDE RECORDS SUMMARY | 2025-05-14 09:36 | XMS RPT_ITS | CCD ---
Author Organization [facility] Care Team Providers Care Pipe Threader Name Role Phone Steven Alfaro Unavailable Unavailable FurnessSteven Unavailable Unavailable FurnessSteven Unavailable Unavailable Unavailable Dr. Steven Alfaro Primary Care Provider [phone] Beto INDUSTRIAL TECHNOLOGY TEACHER, INDUSTRIAL TECHNOLOGY TEACHER-C Padma Attending Provider Beto INDUSTRIAL TECHNOLOGY TEACHER, INDUSTRIAL TECHNOLOGY TEACHER-C Padma Referring Provider Dr. Steven Alfaro Referring Provider Steven Alfaro Unavailable Xochitl Will Unavailable Unavailable Denny Dumas MD Primary Care Provider Steven lAfaro MD Primary Care Provid er Angelina, Dr. Steven Dixon Attending Un available Furness, Dr. Steven Dixon Referring Un available Furness, Dr. Steven Dixon Primary Care Un available Furness, Dr. Steven Dixon Attending Un available Furness, Dr. Steven Dixon Referring Un available Furness, Dr. Steven Dixon Primary Care Un available Furness Steven MONTEIRO Primary Care Provider Steven Alfaro MD Unavailable STEVEN ALFARO Attending Unavailable STEVEN ALFARO Primary Care Unavailable STEVEN ALFARO Attending Unavailable STEVEN ALFARO Referring Unavailable STEVEN ALFARO Primary Care Unavailable Sara Alvarez MD Primary Care Pro vider Perez MACHINIST HELPER MARINE AUTOMOTIVE SALES PROFESSIONAL, Lilo Mir Unavailable Unavailabl e SYSTEM, PROVIDER NOT IN Attending Unavaila ble KIM, SARA SHEELA MOUNIR Primary Care Trudi vailable SYSTEM, PROVIDER NOT IN Referring Unavaila ble SYSTEM, PROVIDER NOT IN Referring Unavaila ble SYSTEM, PROVIDER NOT IN Attending Unavaila ble KIM, SARA SHEELA MOUNIR Primary Care Trudi vailable KIM, SARA SHEELA MOUNIR Primary Care Trudi vailable BARRYBOBY KANG Attending Unava ilable KIM, SARA SHEELA MOUNIR Primary Care Trudi vailable SABA DIEZ Attending Unavailable KIM, SARA SHEELA MOUNIR Primary Care Trudi vailable KIM, SARA SHEELA MOUNIR Referring Trudi vailable KIM, SARA SHEELA MOUNIR Attending Trudi vailable KIM, SARA SHEELA MOUNIR Attending Trudi vailable KIM, SARA SHEELA MOUNIR Primary Care Trudi vailable KIM, SARA SHEELA MOUNIR Referring Trudi vailable Padma Pérez NP Attending Unavailable Steven Alfaro Referring Unavailable Steven Alfaro Primary Care Unavailable KIM, SARA SHEELA MOUNIR Referring Trudi vailable KIM, SARA SHEELA MOUNIR Primary Care Trudi vailable KIM, SARA SHEELA MOUNIR Attending Trudi vailable KIM, SARA SHEELA MOUNIR Referring Trudi vailable KIM, SARA SHEELA MOUNIR Primary Care Trudi vailable KIM, SARA SHEELA MOUNIR Primary Care Trudi vailable ELICIA MILES Attending Unavailabl BOBY Burkett Admitting Unavailab BOBY Gifford Consulting Unavailab le KIM, SARA SHEELA MOUNIR Primary Care Trudi vailable ROGELIO PANDA Attending Unavailable BOBY AVILES Referring Unava ilable BYRON ESCOBAR Admitting Unavailable THEODORE BROWN Attending Unavailable KIM, SARA SHEELA MOUNIR Primary Care Trudi vailable JENS IBANEZ Consulting Unavail able KIM, SARA SHEELA MOUNIR Primary Care Trudi vailable ROGELIO PANDA Attending Unavailable ROGELIO PANDA Referring Unavailable KIM, SARA SHEELA MOUNIR Primary Care Trudi vailable ROGELIO PANDA Attending Unavailable NOAMJONN LEYMY L Referring Unavailable KIM, SARA SHEELA MOUNIR Primary Care Trudi vailable KIM, SARA SHEELA MOUNIR Attending Trudi vailable KIM, SARA SHEELA MOUNIR Referring Trudi vailable MARLA, PATRICIA FRY Attending Unavailable MARLA, PATRICIA FRY Referring Unavailable KIM, SARA SHEELA MOUNIR Primary Care Trudi vailable NOAMROGELIO LEY L Attending Unavailable KIM, SARA SHEELA MOUNIR Primary Care Trudi vailable KIM, SARA SHEELA MOUNIR Primary Care Trudi vailable JACIDIANA Attending Unavailable NOAM, ROGELIO L Attending Unavailable KIM, SARA SHEELA MOUNIR Primary Care Trudi vailable NOAMJONN LEYMY L Attending Unavailable KIM, SARA SHEELA MOUNIR Primary Care Trudi vailable KIM, SARA SHEELA MOUNIR Primary Care Trudi vailable ЕЛЕНА BOURNE Attending Unavailabl e KIM, SARA SHEELA MOUNIR Primary Care Trudi vailable KIM, SARA SHEELA MOUNIR Attending Trudi vailable KIM, SARA SHEELA MOUNIR Primary Care Trudi vailable BAYISSA, JENS CANA Attending Unavail able KIM, SARA SHEELA MOUNIR Primary Care Trudi vailable ЕЛЕНА BOURNE Attending Unavailabl e KIM, SARA SHEELA MOUNIR Attending Trudi vailable KIM, SARA SHEELA MOUNIR Primary Care Trudi vailable KIM, SARA SHEELA MOUNIR Referring Trudi vailable KIM, SARA SHEELA MOUNIR Primary Care Trudi vailable MARLA, PATRICIA FRY Attending Unavailable KIM, SARA SHEELA MOUNIR Primary Care Trudi vailable ЕЛЕНА BOURNE Attending Unavailabl e KIM, SARA SHEELA MOUNIR Primary Care Trudi vailable KIM, SARA SHEELA MOUNIR Attending Trudi vailable KIM, SARA SHEELA MOUNIR Primary Care Trudi vailable KIM, SARA SHEELA MOUNIR Attending Trudi vailable KIM, SARA SHEELA MOUNIR Primary Care Trudi vailable MARLA, PATRICIA FRY Attending Unavailable KIM, SARA SHEELA MOUNIR Primary Care SARA Shaw Attending Trudi Alfaro MD, Dr. Linares Referring Provider Padma Soliz Attending Provider SARA ALVAREZ MD Primary Care Provider Allergies Allergy Classification Reported Allergen(s) Allergy Type Date of Onset Reaction(s) Facility Amoxicillin / Clavulanate (3 sources) Amoxicillin / Clavulanate; Translations: [Augmentin] Drug Allergy [facility] Work Phone: Penicillins (antibiotic) (5 sources) Amoxicillin; Translations: [amoxicillin] Drug Allergy 4 [facility] Sulfonamides (antibiotic) (4 sources) Sulfonamides (Antibiotic); Translations: [Sulfa Drugs] Drug Allergy 4 [facility] Work Phone: (20 sources) Amoxicillin; Translations: [amoxicillin] [facility] Work Phone: (14 sources) Amoxicillin / Clavulanate; Translations: [Augmentin] Drug Allergy [facility] Work Phone: (14 sources) Sulfonamides (Antibiotic); Translations: [Sulfa Drugs] Allergy to drug (finding) Rash [facility] Work Phone: (3 sources) sulfaSALAzine Drug Allergy 2 [facility] (4 sources) Sulfamethizole; Translations: [SULFAMETHIZOLE] Drug Allergy 3 [facility] (20 sources) Penicillins; Translations: [PENICILLINS] Propensity to adverse reactions to drug 4 [facility] (20 sources) Sulfonamides (Antibiotic); Translations: [SULFA (SULFONAMIDE ANTIBIOTICS)] Propensity to adverse reactions to drug 4 [facility] (20 sources) Bee Venom Protein (Honey Bee); Translations: [BEE VENOM PROTEIN (HONEY BEE)] Propensity to adverse reactions to drug 4 Swelling [facility] (2 sources) Amoxicillin / Clavulanate; Translations: [AMOXICILLIN-POT CLAVULANATE] Drug Allergy 3 Unknown [facility] Work Phone: (1 source) sulfaSALAzine Drug Allergy 5 [facility] (6 sources) Penicillins Propensity to adverse reactions to drug 4 Rash [facility] Medications Current Medications Medication Drug Class(es) Dates Sig (Normalized) Sig (Original) [id number] 200 actuat albuterol 0.09 mg/actuat metered dose inhaler (20 sources) beta2-Adrenergic Agonist Start: 10-19-2024 End: 10-20-2024 Start: 05-15-2023 End: 05-14-2024 take 2 puff(s) by inhalation every four hours for wheezing albuterol 90 mcg/actuation inhaler Indications: Chronic obstructive pulmonary disease, unspecified COPD type ([facility]) Inhale 2 puffs every 4 hours if needed for wheezing or shortness of breath. 54 g 3 05/15/2023 05/14/2024 Active Start: 08-16-2021 take 1 puff(s) by in halation every six hours Albuterol Sulfate (Ventolin Hfa) 90 mcg/actuation HFA aerosol inhaler Active 2 PUFF INHALATION EVERY 6 HOURS August 16, 2021 11:34am Start: 08-05-2019 End: 05-13-2025 Albuterol Sulfate (Ventolin Hfa) 90 mcg/actuation HFA aerosol inhaler Active 2 NMA INHALATION EVERY 6 HOURS as needed for shortness of breath or wheezing 20 04May 13, 2025 11:43am Asthma-chronic obstructive pulmonary disease overlap syndrome Chronic obstructive pulmonary disease, unspecified Start: 08-05-2019 End: 08-16-2021 take 1 puff(s) by inhalation every six hours Albuterol Sulfate (Ventolin Hfa) 90 mcg/actuation HFA aerosol inhaler Discontinued 2 PUFF INHALATION EVERY 6 HOURS February 01, 2021 11:25am August 16, 2021 11:35am Start: 02-02-2019 take 2 puff(s) by in halation every six hours as needed Ventolin HFA 108 (90 Base) MCG/ACT Inhalation Aerosol Solution INHALE 2 PUFFS EVERY 6 HOURS NEEDED FOR SHORTNESS OF BREATH AND FOR Quantity: 3 Refills: 3 Ordered: 12-Nov-2022 Steven Alfaro MD Start : 02-Feb-2019 Active Start: 02-02-2019 take 2 puff(s) by in halation every six hours as needed Ventolin HFA 108 (90 Base) MCG/ACT Inhalation Aerosol Solution INHALE 2 PUFFS EVERY 6 HOURS NEEDED FOR SHORTNESS OF BREATH AND FOR Quantity: 1 Refills: 11 Steven Alfaro MD Start : 02-Feb-2019 Active 8 GM Inhaler Start: 02-02-2019 take 2 puff(s) by in halation every six hours as needed Ventolin HFA 108 (90 Base) MCG/ACT Inhalation Aerosol Solution INHALE 2 PUFFS EVERY 6 HOURS NEEDED FOR SHORTNESS OF BREATH AND FOR Quantity: 18 Refills: 0 Start : 02-Feb-2019 Active Start: 11-18-2018 End: 02-02-2019 take 2.5 mg by inhalation every four hours as needed for chronic obstructive pulmonary disease Albuterol Sulfate 2.5 mg /3 mL (0.083 %) solution for nebulization Discontinued 2.5 mg INHALATION Q4H as needed for COPD J44.9 180 November 18, 2018 10:01am February 02, 2019 1:05pm Start: 03-16-2018 End: 02-02-2019 Albuterol Sulfate (Ventolin Hfa) 90 mcg/actuation HFA aerosol inhaler Discontinued 2 NMA INHALATION EVERY 6 HOURS as needed for shortness of breath or wheezing 20 04March 16, 2018 1:00pm February 02, 2019 1:03pm Start: 03-16-2018 End: 02-02-2019 take 1 puff(s) by inhalation every six hours Albuterol Sulfate (Ventolin Hfa) 90 mcg/actuation HFA aerosol inhaler Discontinued 2 PUFF INHALATION EVERY 6 HOURS March 16, 2018 1:00pm February 02, 2019 1:03pm Start: 02-12-2018 End: 03-16-2018 Albuterol Sulfate (Ventolin Hfa) 90 mcg/actuation HFA aerosol inhaler Discontinued 2 NMA INHALATION EVERY 6 HOURS as needed for shortness of breath or wheezing 18 February 12, 2018 8:46am March 16, 2018 1:00pm Start: 02-12-2018 End: 03-16-2018 take 1 puff(s) by inhalation every six hours Albuterol Sulfate (Ventolin Hfa) 90 mcg/actuation HFA aerosol inhaler Discontinued 2 PUFF INHALATION EVERY 6 HOURS February 12, 2018 8:46am March 16, 2018 1:00pm Start: 02-11-2018 End: 02-12-2018 Albuterol Sulfate (Ventolin Hfa) 90 mcg/actuation HFA aerosol inhaler Discontinued 2 NMA INHALATION EVERY 6 HOURS as needed February 11, 2018 12:00am February 12, 2018 8:47am Start: 02-11-2018 End: 02-12-2018 take 1 puff(s) by inhalation every six hours Albuterol Sulfate (Ventolin Hfa) 90 mcg/actuation HFA aerosol inhaler Discontinued 2 PUFF INHALATION EVERY 6 HOURS February 11, 2018 3:10pm February 12, 2018 8:47am Start: 07-21-2014 End: 10-01-2016 take 2 puff(s) by inhalation every six hours as needed for wheezing albuterol (VENTOLIN HFA) 90 mcg/actuation inhaler Indications: Chronic airway obstruction (HCC) , Asthma, moderate persistent, with acute exacerbation Inhale 2 puffs every 6 (six) hours as needed for wheezing. 3 Inhaler 4 07/21/2014 10/01/2016 Discontinued (Reorder (Suppress CancelRx Message to Pharmacy)) Start: 07-21-2014 End: 03-07-2015 albuterol (PROVENTIL) 2.5 mg /3 mL (0.083 %) nebulizer solution Indications: Chronic airway obstruction (HCC) , Asthma, moderate persistent, with acute exacerbation Take 3 mL (2.5 mg total) by nebulization every 6 (six) hours as needed for wheezing. 75 mL 11 07/21/2014 03/07/2015 Discontinued (Reorder (Suppress CancelRx Message to Pharmacy)) End: 05-15-2023 take 2 puff(s) by inhalation every four hours for wheezing albuterol 90 mcg/actuation inhaler Inhale 2 puffs every 4 hours if needed for wheezing or shortness of breath. 0 05/15/2023 Discontinued (Reorder) Albuterol (Eqv-P roAir HFA) 90 mcg/inh inhalation aerosol ; 2 puff(s) inhaled prn, As Needed Quantity: 0 Refills: 0 Ordered: 13-Mar-2022 Salome Bee Generic Substitution Allowed apixaban 5 mg oral tablet (20 sources) Factor Xa Inhibitor Start: 10-19-2024 End: 10-20-2024 5 mg, Oral, 2 times daily, First dose on Fri10/19/24 at 2000, Indication: DVT/PE, How long has patient been on apixaban? 7 Days - 6 Months Start: 08-03-2024 End: 02-16-2025 take 1 tablet by mouth twice daily Apixaban (Eliquis) 5 mg tablet Active 5 mg PO TWICE A DAY January 11, 2025 12:00am aspirin 81 mg delayed release oral tablet (19 sources) Platelet Aggregation Inhibitor, Nonsteroidal Anti-inflammatory Drug Start: 10-19-2024 End: 11-20-2024 take 1 tablet by mouth once daily in the evening aspirin 81 MG EC tablet Take 1 (one) tablet (81 mg total) by mouth daily Start: 10/21/24. 30 tablet 10/20/2024 3:24 PM EST 10/21/2024 11/20/2024 Active Azithromycin (20 sources) Macrolide Antimicrobial Start: 03-10-2025 azithromycin (Z-ALEYDA) 5 day dose pack Indications: Upper respiratory tract infection, unspecified type Follow package instructions. . 6 tablet 03/10/2025 Active Start: 11-17-2023 End: 11-21-2023 azithromycin (Zithromax) 250 mg tablet Indications: Chronic obstructive pulmonary disease, unspecified COPD type (CMS/HCC) Take 2 tablets (500 mg) by mouth once daily for 1 day, THEN 1 tablet (250 mg) once daily for 4 days. Take 2 tabs (500 mg) by mouth today, than 1 daily for 4 days.. 6 tablet 0 11/17/2023 11/21/2023 Active Start: 08-08-2021 End: 02-06-2022 take 2-5 tablets by mouth once daily Azithromycin 250 mg tablet Discontinued 0 PO .COMPLEX 6 0 January 18, 2022 12:00am February 06, 2022 1:32pm take 500 mg today (day 1), then 250 mg for 4 days (days 2-5) PO Start: 08-08-2021 End: 02-06-2022 Azithromycin Discontinued 0 PO .COMPLEX 6 November 09, 2021 9:48am January 18, 2022 9:00am take 500 mg today (day 1), then 250 mg for 4 days (days 2-5) PO Start: 02-02-2019 End: 05-10-2020 take 2-5 tablets by mouth once daily Azithromycin 250 mg tablet Discontinued 0 PO .COMPLEX 6 0 February 02, 2019 12:00am May 10, 2020 8:01am take 500 mg today (day 1), then 250 mg for 4 days (days 2-5) PO Start: 02-02-2019 End: 05-10-2020 take 2 tablets by mouth once daily, then take 1 tablet by mouth, then take 1 tablet by mouth once daily Azithromycin 250 MG Oral Tablet TAKE 2 TABLETS ON DAY 1 THEN TAKE 1 TABLET A DAY FOR 4 DAYS. Quantity: 1 Refills: 0 Steven Alfaro MD Start : 18-Oct-2019 Active 6 Tablet Pack Start: 11-12-2017 End: 03-16-2018 take 1 tablet by mouth once daily Azithromycin 250 mg tablet Discontinued 250 mg PO daily 6 0 November 12, 2017 1:00am March 16, 2018 12:27pm 24 hr buPROPion hydrochloride 300 mg extended release oral tablet (20 sources) Aminoketone Start: 10-19-2024 End: 10-20-2024 take 1 tablet by mouth once daily 300 mg, Oral, Daily, First dose on Fri10/19/24 at 1600, Tablets to be swallowed whole. DO NOT CRUSH OR CHEW. Start: 07-06-2024 End: 11-22-2024 take 1 tablet by mouth once daily buPROPion (WELLBUTRIN XL) 300 MG 24 hr tablet Indications: Mild major depression Take 1 (one) tablet (300 mg total) by mouth daily . 100 tablet 3 11/22/2024 Active Start: 04-24-2023 buPROPion (WEL LBUTRIN XL) 300 MG 24 hr tablet 04/24/2023 Active Start: 02-15-2019 End: 05-15-2023 take 1 tablet by mouth once daily buPROPion XL (Wellbutrin XL) 300 mg 24 hr tablet Indications: Anxiety Take 1 tablet (300 mg) by mouth once daily. 90 tablet 3 05/15/2023 Active Start: 07-31-2016 End: 04-12-2024 take 2 tablets by mouth once daily buPROPion (WELLBUTRIN XL) 150 MG 24 hr tablet Take 2 (two) tablets (300 mg total) by mouth daily . 0 07/31/2016 04/12/2024 Discontinued busPIRone hydrochloride 5 mg oral tablet (4 sources) Start: 04-01-2025 End: 04-01-2026 take 1 tablet by mouth three times daily as needed Buspirone 5 mg tablet Active 5 mg PO THREE TIMES A DAY as needed May 13, 2025 12:00am Centrum Silver Women's oral tablet (1 source) take 1 tablet by mouth once daily Centrum Silver Women's oral tablet ; 1 tab(s) orally once a day Quantity: 0 Refills: 0 Ordered: 13-Mar-2022 Salome Bee Generic Substitution Allowed clobetasol propionate 0.5 mg/ml topical solution (20 sources) Corticosteroid Start: 05-31-2023 clobetasoL (TEMOVATE) 0.05 % scalp solution 05/31/2023 Active Start: 12-26-2021 Clobetasol Pro pionate 0.05 % External Solution APPLY SOLUTION TOPICALLY TO AREAS OF RASH/ITCHING ON SCALP ONCE DAILY NEEDED; BEST TO APPLY AFTER SHOWERING Quantity: 50 Refills: 0 Ordered: 26-Dec-2021 DO Start : 26-Dec-2021 Active doxycycline hyclate 100 mg oral tablet (20 sources) Tetracycline-class Drug Start: 04-19-2025 End: 04-26-2025 take 1 tablet by mouth twice daily doxycycline hyclate (VIBRA-TABS) 100 MG tablet Indications: COPD with acute exacerbation (HCC) Take 1 (one) tablet (100 mg total) by mouth 2 (two) times a day for 7 days . 14 tablet 04/19/2025 04/26/2025 Active Start: 02-10-2025 End: 02-17-2025 take 1 tablet by mouth twice daily doxycycline hyclate (VIBRA-TABS) 100 MG tablet Indications: Acute non-recurrent maxillary sinusitis , COPD with acute exacerbation (HCC) Take 1 (one) tablet (100 mg total) by mouth 2 (two) times a day for 7 days . 14 tablet 02/10/2025 02/17/2025 Active Start: 10-28-2024 End: 11-04-2024 take 1 tablet by mouth twice daily doxycycline hyclate (VIBRA-TABS) 100 MG tablet Indications: COPD with acute exacerbation (HCC) Take 1 (one) tablet (100 mg total) by mouth 2 (two) times a day for 7 days . 14 tablet 10/28/2024 11/04/2024 Active Start: 09-16-2024 End: 09-21-2024 take 1 tablet by mouth twice daily doxycycline hyclate (VIBRA-TABS) 100 MG tablet Indications: Community acquired pneumonia of right upper lobe of lung Take 1 (one) tablet (100 mg total) by mouth 2 (two) times a day for 5 days . 10 tablet 09/16/2024 09/21/2024 Active Start: 07-13-2024 End: 07-20-2024 take 1 tablet by mouth twice daily doxycycline hyclate (VIBRA-TABS) 100 MG tablet Take 1 (one) tablet (100 mg total) by mouth 2 (two) times a day for 7 days . 14 tablet 07/13/2024 07/20/2024 Active Start: 04-12-2024 End: 04-17-2024 take 1 tablet by mouth twice daily doxycycline hyclate (VIBRA-TABS) 100 MG tablet Indications: COPD with acute exacerbation (HCC) Take 1 (one) tablet (100 mg total) by mouth 2 (two) times a day for 5 days . 10 tablet 0 04/12/2024 04/17/2024 Active Start: 02-13-2022 End: 01-11-2025 take 1 capsule by mouth twice daily Doxycycline Hyclate 100 mg capsule Discontinued 100 mg PO TWICE A DAY August 06, 2022 3:20pm January 11, 2025 1:00pm Start: 11-13-2018 End: 11-19-2018 take 1 tablet by mouth twice daily Doxycycline Hyclate 100 mg tablet Discontinued 100 mg PO TWICE A DAY November 13, 2018 1:00am November 19, 2018 12:08pm Start: 07-21-2014 End: 12-26-2014 take 1 tablet by mouth twice daily doxycycline (VIBRA-TABS) 100 MG tablet Indications: Cough Take 1 tablet (100 mg total) by mouth 2 (two) times a day. 20 tablet 4 07/21/2014 12/26/2014 Discontinued (Reorder (Suppress CancelRx Message to Pharmacy)) DULoxetine 60 mg delayed release oral capsule (20 sources) Serotonin and Norepinephrine Reuptake Inhibitor Start: 04-01-2025 End: 04-01-2025 take 2 capsules by mouth once daily DULoxetine (CYMBALTA) 60 MG capsule Indications: Mild major depression Take 2 (two) capsules (120 mg total) by mouth daily Total 90 mg daily . 200 capsule 1 04/01/2025 Active Start: 10-19-2024 End: 10-20-2024 60 mg, Oral, Daily, First do se on Fri10/19/24 at 1600, Take in addition to 30mg capsule for a daily dose of 90mg DO NOT CRUSH OR CHEW. Start: 04-12-2024 End: 04-12-2025 take 1 capsule by mouth once daily Duloxetine 30 mg capsule,delayed release(DR/EC) Active 30 mg PO daily January 11, 2025 12:00am Start: 09-17-2016 End: 04-01-2025 take 1 capsule by mouth once daily DULoxetine (CYMBALTA) 60 MG capsule Indications: Mild major depression Take 1 (one) capsule (60 mg total) by mouth daily Total 90 mg daily . 100 capsule 3 11/22/2024 04/01/2025 Discontinued Start: 09-17-2016 End: 05-14-2024 take 1 capsule by mouth twice daily DULoxetine (Cymbalta) [address] capsule Indications: Anxiety Take 1 capsule (60 mg) by mouth 2 times a day. 180 capsule 3 05/15/2023 05/14/2024 Active fexofenadine hydrochloride 180 mg oral tablet (20 sources) Histamine-1 Receptor Antagonist fexofenadine (ALLEGR A) 180 MG tablet Take 1 (one) tablet (180 mg total) by mouth . Active take 1 tablet by mouth once la y Ariella 24 Hour Allergy oral tablet ; 1 tab(s) orally once a day Quantity: 0 Refills: 0 Ordered: 13-Mar-2022 Salome Bee Generic Substitution Allowed fluconazole 100 mg oral tablet (15 sources) Azole Antifungal Start: 05-29-2022 take 1 tablet by mouth once daily fluconazole (DIFLUCAN) 100 MG tablet Take 1 (one) tablet (100 mg total) by mouth daily . 05/29/2022 Active fluticasone propionate 0.05 mg/actuat metered dose nasal spray (20 sources) Corticosteroid Start: 05-07-2023 End: 11-22-2024 take 1 spray(s) nasal route once daily fluticasone propionate (FLONASE) 50 mcg/actuation nasal spray Indications: Seasonal allergic rhinitis due to pollen Instill 1 (one) spray into each nostril daily . 16 g 5 11/22/2024 Active Start: 02-01-2021 take 2 spray(s) nasa l route once daily Fluticasone Propionate 50 MCG/ACT Nasal Suspension USE 2 SPRAY(S) IN EACH NOSTRIL ONCE DAILY Quantity: 16 Refills: 0 Ordered: 31-Mar-2021 DO Start : 01-Feb-2021 Active Start: 02-01-2021 End: 01-11-2025 take 50 ug nasal route once daily Fluticasone Propionate (Flonase Allergy Relief) 50 mcg/actuation spray,suspension Active 2 NMA INTRANASAL daily 15.8 6 January 11, 2025 1:23pm Smoking greater than 40 pack years Nicotine dependence, cigarettes, uncomplicated administer into each nostril Start: 02-01-2021 End: 01-18-2022 take 1 spray(s) nasal route once daily Fluticasone Propionate (Flonase Allergy Relief) 50 mcg/actuation spray,suspension Active 2 SPRAY INTRANASAL daily 15.8 January 18, 2022 10:58am administer into each nostril Start: 03-11-2018 End: 03-16-2018 take 100 ug by inhalation once daily Fluticasone Furoate (Arnuity Ellipta) 100 mcg/actuation blister with device Discontinued 1 NMA INHALATION daily March 11, 2018 12:00am March 16, 2018 12:59pm take 1 spray(s) nasa l route once daily fluticasone (Flonase) 50 mcg/actuation nasal spray Administer 1 spray into each nostril once daily. 0 Active fluticasone 50 m cg/inh nasal spray ; 1 spray(s) nasal once a day, As Needed Quantity: 0 Refills: 0 Ordered: 13-Mar-2022 Salome Bee Generic Substitution Allowed 120 actuat fluticasone propionate 0.23 mg/actuat / salmeterol 0.021 mg/actuat metered dose inhaler (20 sources) Corticosteroid, beta2-Adrenergic Agonist Start: 05-15-2023 End: 05-14-2024 take 2 puff(s) by inhalation twice daily fluticasone propion-salmeteroL (Advair HFA) 230-21 mcg/actuation inhaler Indications: Chronic obstructive pulmonary disease, unspecified COPD type ([facility]) Inhale 2 puffs 2 times a day. 36 g 3 05/15/2023 05/14/2024 Active Start: 09-12-2022 End: 01-11-2025 Fluticasone Propion-Salmeter ol (Advair Hfa) 230-21 mcg/actuation HFA aerosol inhaler Discontinued 2 NMA INHALATION TWICE A DAY 1 September 12, 2022 12:20pm January 11, 2025 1:00pm Start: 01-18-2022 End: 09-12-2022 Fluticasone Propion-Salmeter ol (Advair Hfa) 230-21 mcg/actuation HFA aerosol inhaler Discontinued 2 NMA INHALATION TWICE A DAY 11 08January 18, 2022 10:58am September 12, 2022 12:20pm Start: 01-18-2022 take 1 puff(s) by in halation twice daily Fluticasone Propion-Salmeterol (Advair Hfa) 230-21 mcg/actuation HFA aerosol inhaler Active 2 PUFF INHALATION TWICE A DAY January 18, 2022 10:58am Start: 08-16-2021 End: 01-18-2022 Fluticasone Propion-Salmeter ol (Advair Hfa) 230-21 mcg/actuation HFA aerosol inhaler Discontinued 2 NMA INHALATION TWICE A DAY 11 08August 16, 2021 11:34am January 18, 2022 10:58am Start: 08-16-2021 End: 01-18-2022 take 1 puff(s) by inhalation twice daily Fluticasone Propion-Salmeterol (Advair Hfa) 230-21 mcg/actuation HFA aerosol inhaler Discontinued 2 PUFF INHALATION TWICE A DAY August 16, 2021 11:34am January 18, 2022 10:58am Start: 02-01-2021 End: 08-16-2021 Fluticasone Propion-Salmeter ol (Advair Hfa) 230-21 mcg/actuation HFA aerosol inhaler Discontinued 2 NMA INHALATION TWICE A DAY 1 February 01, 2021 11:25am August 16, 2021 11:35am Start: 02-01-2021 End: 08-16-2021 take 1 puff(s) by inhalation twice daily Fluticasone Propion-Salmeterol (Advair Hfa) 230-21 mcg/actuation HFA aerosol inhaler Discontinued 2 PUFF INHALATION TWICE A DAY 1 February 01, 2021 11:25am August 16, 2021 11:35am Start: 06-28-2020 End: 02-01-2021 Fluticasone Propion-Salmeter ol (Advair Hfa) 230-21 mcg/actuation HFA aerosol inhaler Discontinued 2 NMA INHALATION TWICE A DAY 1 June 28, 2020 11:53am February 01, 2021 11:26am Start: 06-28-2020 End: 02-01-2021 take 1 puff(s) by inhalation twice daily Fluticasone Propion-Salmeterol (Advair Hfa) 230-21 mcg/actuation HFA aerosol inhaler Discontinued 2 PUFF INHALATION TWICE A DAY June 28, 2020 11:53am February 01, 2021 11:26am Start: 08-05-2019 End: 06-28-2020 Fluticasone Propion-Salmeter ol (Advair Hfa) 230-21 mcg/actuation HFA aerosol inhaler Discontinued 2 NMA INHALATION TWICE A DAY 1 August 05, 2019 1:42pm June 28, 2020 11:54am Start: 08-05-2019 End: 06-28-2020 take 1 puff(s) by inhalation twice daily Fluticasone Propion-Salmeterol (Advair Hfa) 230-21 mcg/actuation HFA aerosol inhaler Discontinued 2 PUFF INHALATION TWICE A DAY August 05, 2019 1:42pm June 28, 2020 11:54am Start: 02-02-2019 End: 08-05-2019 Fluticasone Propion-Salmeter ol (Advair Hfa) 230-21 mcg/actuation HFA aerosol inhaler Discontinued 2 NMA INHALATION TWICE A DAY 1 February 02, 2019 1:00pm August 05, 2019 1:43pm Start: 02-02-2019 End: 08-05-2019 take 1 puff(s) by inhalation twice daily Fluticasone Propion-Salmeterol (Advair Hfa) 230-21 mcg/actuation HFA aerosol inhaler Discontinued 2 PUFF INHALATION TWICE A DAY February 02, 2019 1:00pm August 05, 2019 1:43pm Start: 11-04-2018 take 2 puff(s) by mo uth twice daily Advair HFA 230-21 MCG/ACT Inhalation Aerosol INHALE 2 PUFFS, BY MOUTH, TWICE DAILY. Quantity: 1 Refills: 11 Steven Alfaro MD Start : 04-Nov-2018 Active 8 GM Inhaler Start: 11-04-2018 Advair HFA 230 -21 MCG/ACT Inhalation Aerosol Quantity: 12 Refills: 0 Start : 04-Nov-2018 Active Start: 11-04-2018 End: 02-02-2019 Fluticasone Propion-Salmeter ol (Advair Hfa) 230-21 mcg/actuation HFA aerosol inhaler Discontinued 2 NMA INHALATION TWICE A DAY 1 November 04, 2018 2:32pm February 02, 2019 1:03pm Start: 11-04-2018 End: 02-02-2019 take 1 puff(s) by inhalation twice daily Fluticasone Propion-Salmeterol (Advair Hfa) 230-21 mcg/actuation HFA aerosol inhaler Discontinued 2 PUFF INHALATION TWICE A DAY November 04, 2018 2:32pm February 02, 2019 1:03pm Start: 03-16-2018 End: 11-04-2018 take 1 puff(s) by inhalation twice daily Fluticasone Propion-Salmeterol (Advair Hfa) 230-21 mcg/actuation HFA aerosol inhaler Discontinued 2 PUFF INHALATION TWICE A DAY March 16, 2018 12:59pm November 04, 2018 2:33pm Start: 03-16-2018 End: 11-04-2018 Fluticasone Propion-Salmeter ol (Advair Hfa) 230-21 mcg/actuation HFA aerosol inhaler Discontinued 2 NMA INHALATION TWICE A DAY 1 March 16, 2018 12:00am November 04, 2018 2:33pm Start: 03-16-2018 End: 11-04-2018 take 1 puff(s) by inhalation twice daily Fluticasone Propion-Salmeterol (Advair Hfa) 230-21 mcg/actuation HFA aerosol inhaler Discontinued 2 PUFF INHALATION TWICE A DAY 1 March 16, 2018 12:00am November 04, 2018 2:33pm Start: 10-01-2016 End: 07-13-2024 take 2 puff(s) by inhalation twice daily fluticasone-salmeterol (ADVAIR HFA) 230-21 mcg/actuation inhaler Indications: Chronic obstructive pulmonary disease, unspecified COPD type (HCC) , Mild persistent asthma without complication Inhale 2 puffs 2 (two) times a day. 3 Inhaler 4 10/01/2016 07/13/2024 Discontinued Start: 07-21-2014 End: 10-01-2016 take 2 puff(s) by inhalation twice daily fluticasone-salmeterol (ADVAIR HFA) 230-21 mcg/actuation inhaler Indications: Chronic airway obstruction (HCC) , Asthma, moderate persistent, with acute exacerbation Inhale 2 puffs 2 (two) times a day. 3 Inhaler 4 07/21/2014 10/01/2016 Discontinued (Reorder (Suppress CancelRx Message to Pharmacy)) take 2 puff(s) by in halation twice daily Advair HFA 230 mcg-21 mcg/inh inhalation aerosol ; 2 puff(s) inhaled 2 times a day Quantity: 0 Refills: 0 Ordered: 13-Mar-2022 Salome Bee Generic Substitution Allowed Jabxglwpwxq-Ahqdyrykf-Cklluy er (2 sources) Start: 05-13-2025 Tfjlyfmjogb-Tbegrwajy-Yhfvyc er (Trelegy Ellipta) 200-62.5-25 mcg blister with device Active 1 NMA INHALATION DAILY 60 5 May 13, 2025 11:43am Asthma-chronic obstructive pulmonary disease overlap syndrome Chronic obstructive pulmonary disease, unspecified Start: 01-11-2025 End: 05-13-2025 Qhynmysyngq-Mttojrshc-Xfocms er (Trelegy Ellipta) 200-62.5-25 mcg blister with device Discontinued INHALATION DAILY January 11, 2025 12:00am May 13, 2025 11:43am hxnlpzbdtmr-bojiychon-ideobv er (Trelegy Ellipta) 200-62.5-25 mcg DsDv (20 sources) Start: 04-01-2025 jpccdumcltr-iqyjqlyrn-szetqi er (Trelegy Ellipta) 200-62.5-25 mcg DsDv Indications: Severe persistent asthma without complication Inhale 1 (one) Inhalation. daily . 60 each 5 04/01/2025 Active Start: 11-22-2024 End: 04-01-2025 snfjoqxjvhe-blhciyvgh-izpfjz er (Trelegy Ellipta) 200-62.5-25 mcg DsDv Indications: Severe persistent asthma without complication Inhale 1 (one) Inhalation. daily . 60 each 5 11/22/2024 04/01/2025 Discontinued (Reorder (Suppress CancelRx Message to Pharmacy)) Start: 11-22-2024 fluticasone-um eclidin-vilanter (Trelegy Ellipta) 200-62.5-25 mcg DsDv Indications: Severe persistent asthma without complication Inhale 1 (one) Inhalation. daily . 60 each 5 11/22/2024 Active Start: 09-16-2024 End: 11-22-2024 yclksxetnxp-ktqlysfjy-bjonut er (Trelegy Ellipta) 200-62.5-25 mcg DsDv Inhale 1 (one) Inhalation. daily . 28 each 3 09/16/2024 11/22/2024 Discontinued (Reorder (Suppress CancelRx Message to Pharmacy)) Start: 09-16-2024 End: 11-22-2024 ygkkihdiiik-sdmwjbsus-uaixzd er (Trelegy Ellipta) 200-62.5-25 mcg DsDv Indications: COPD with asthma (HCC) Inhale 1 (one) Inhalation. daily . 28 each 3 09/16/2024 11/22/2024 Discontinued Start: 09-16-2024 fluticasone-um eclidin-vilanter (Trelegy Ellipta) 200-62.5-25 mcg DsDv Inhale 1 (one) Inhalation. daily . 28 each 3 09/16/2024 Start: 09-16-2024 fluticasone-um eclidin-vilanter (Trelegy Ellipta) 200-62.5-25 mcg DsDv Indications: COPD with asthma (HCC) Inhale 1 (one) Inhalation. daily . 28 each 3 09/16/2024 Start: 09-16-2024 fluticasone-um eclidin-vilanter (Trelegy Ellipta) 200-62.5-25 mcg DsDv Inhale 1 (one) Inhalation. daily . 28 each 3 09/16/2024 Active Start: 09-16-2024 fluticasone-um eclidin-vilanter (Trelegy Ellipta) 200-62.5-25 mcg DsDv Indications: COPD with asthma (HCC) Inhale 1 (one) Inhalation. daily . 28 each 3 09/16/2024 Active Start: 05-18-2024 End: 09-16-2024 take 1 puff(s) by inhalation once daily ohyrbblwmpq-kksnzorjj-nxbkvdmm (Trelegy Ellipta) 200-62.5-25 mcg DsDv Inhale 1 puff daily . 28 each 3 05/18/2024 09/16/2024 Discontinued (Reorder (Suppress CancelRx Message to Pharmacy)) Start: 05-18-2024 take 1 puff(s) by inhalation once daily ktcurbsgmcc-faegmdaxx-jbdmjyux (Trelegy Ellipta) 200-62.5-25 mcg DsDv Inhale 1 puff daily . 28 each 3 05/18/2024 Active furosemide 40 mg oral tablet (20 sources) Loop Diuretic Start: 03-28-2025 take 1 tablet by mouth twice daily furosemide (LASIX) 40 MG tablet Take 1 (one) tablet (40 mg total) by mouth 2 (two) times a day . 60 tablet 1 03/28/2025 Active Start: 07-30-2019 take 2 tablets by mo [facility] once daily Furosemide 40 MG Oral Tablet TAKE 2 TABLETS BY MOUTH ONCE DAILY Quantity: 180 Refills: 3 Ordered: 27-Aug-2022 Steven Alfaro MD Start : 30-Jul-2019 Active Start: 05-03-2014 End: 05-14-2024 take 1 tablet by mouth once daily Furosemide 40 mg tablet Active 40 mg PO daily March 11, 2018 12:00am Start: 05-03-2014 End: 12-24-2024 take 1 tablet by mouth twice daily furosemide (LASIX) 40 MG tablet Take 1 (one) tablet (40 mg total) by mouth 2 (two) times a day . 60 tablet 2 12/24/2024 Active levocetirizine dihydrochloride 5 mg oral tablet (9 sources) Histamine-1 Receptor Antagonist Start: 11-22-2024 End: 11-22-2025 take 1 tablet by mouth once daily in the evening Levocetirizine 5 mg tablet Active 5 mg PO EVERY EVENING January 11, 2025 12:00am levothyroxine sodium 0.075 mg oral tablet (20 sources) l-Thyroxine Start: 01-11-2025 take 1 tablet by mouth once daily Levothyroxine 75 mcg tablet Active 75 ug PO daily January 11, 2025 12:00am Start: 10-19-2024 End: 10-20-2024 take 30 mL by mouth once daily 75 mcg, Oral, Daily, Fi rst dose on Fri10/19/24 at 1530, Avoid administration with soybean flour, cottonseed meal, walnuts, and dietary fiber. Administer at least 1 hour before breakfast. Hold continuous tube feeds for at least 1 hour before until 1 hour after each dose. Flush tube with 30mL of water before and after administration. Tube feed rate may need adjusted to meet caloric needs. Start: 03-11-2018 End: 01-11-2025 take 1 capsule by mouth once daily Levothyroxine 50 mcg capsule Discontinued 50 ug PO daily March 11, 2018 12:00am January 11, 2025 1:03pm Start: 05-03-2014 End: 11-22-2024 take 1 tablet by mouth once daily levothyroxine (SYNTHROID, LEVOTHROID) 75 MCG tablet Indications: Hypothyroidism, unspecified type Take 1 (one) tablet (75 mcg total) by mouth daily . 100 tablet 3 11/22/2024 Active Start: 05-03-2014 take 1 tablet by freddy th once daily levothyroxine (SYNTHROID, LEVOTHROID) 50 MCG tablet Take 1 tablet by mouth daily. 0 05/03/2014 Active meclizine hydrochloride 25 mg oral tablet (20 sources) Antiemetic Start: 05-19-2023 End: 06-18-2023 take 1 tablet by mouth three times daily as needed for nausea meclizine (ANTIVERT) 25 mg tablet Take 1 (one) tablet (25 mg total) by mouth 3 (three) times a day as needed for nausea . 30 tablet 05/19/2023 Active methylPREDNISolone (5 sources) Corticosteroid Start: 04-19-2025 End: 04-25-2025 methylPREDNISolone (MEDROL DOSEPACK) 4 mg tablet Indications: COPD with acute exacerbation (HCC) Follow package directions . 21 tablet 04/19/2025 04/25/2025 Active Start: 02-10-2025 End: 02-16-2025 methylPREDNISolone (MEDROL D OSEPACK) 4 mg tablet Indications: Acute non-recurrent maxillary sinusitis , COPD with acute exacerbation (HCC) Follow package directions . 21 tablet 02/10/2025 02/16/2025 Active Start: 09-16-2024 End: 09-22-2024 methylPREDNISolone (MEDROL D OSEPACK) 4 mg tablet Indications: Community acquired pneumonia of right upper lobe of lung Follow package directions . 21 tablet 09/16/2024 09/22/2024 Active montelukast 10 mg oral tablet (20 sources) Leukotriene Receptor Antagonist Start: 10-01-2016 End: 05-13-2025 take 1 tablet by mouth once daily in the evening Montelukast (Singulair) 10 mg tablet Active 10 mg PO EVERY EVENING 30 May 13, 2025 11:43am Asthma-chronic obstructive pulmonary disease overlap syndrome Chronic obstructive pulmonary disease, unspecified Start: 07-21-2014 End: 09-06-2015 take 1 tablet by mouth once daily montelukast (SINGULAIR) 10 mg tablet Indications: Asthma, moderate persistent, with acute exacerbation , Allergic rhinitis Take 1 tablet (10 mg total) by mouth daily. 90 tablet 4 07/21/2014 09/06/2015 Discontinued (Reorder (Suppress CancelRx Message to Pharmacy)) Xe-Ovt-Nnykr Acid-Lutein (Centrum Silver) 400-250 mcg tablet,chewable (2 sources) Start: 03-11-2018 take 1 tablet by mouth once Qe-Cuv-Ubwvu Acid-Lutein (Centrum Silver) 400-250 mcg tablet,chewable Active TABLET PO March 11, 2018 12:10pm Start: 03-11-2018 take 1 tablet by mouth once Mv -Min-Folic Acid-Lutein (Centrum Silver) 400-250 mcg tablet,chewable Active TABLET PO March 11, 2018 12:00am nitroglycerin 0.4 mg sublingual tablet (20 sources) Nitrate Vasodilator Start: 10-20-2024 Code/trauma/sedation medication, Starting on Fri10/20/24 at 1126, Intra-Procedure Start: 10-19-2024 End: 11-19-2024 nitroGLYCERIN (NITROSTAT) 0. [address] 1 (one) tablet (0.4 mg total) under the tongue every 5 (five) minutes as needed for chest pain , if no relief after 3 doses call 911 . 100 tablet 10/20/2024 3:24 PM EST 10/20/2024 Active NONFORMULARY (20 sources) NONFORMULARY CPA P 9cm H20 (DASCO) in [facility] NONFORMULARY CPA P 9cm H20 (DASCO) in [facility] Active NONFORMULARY CPA P 9cm H20 (DASCO) in [facility] 0 Active nystatin 790361 unt/ml topical cream (9 sources) Polyene Antifungal Start: 05-29-2022 nystatin (M ycostatin) cream Apply topically twice a day. APPLY AND RUB IN A THIN FILM TO AFFECTED AREAS TWICE DAILY. (AM & PM). 0 05/29/2022 Active Start: 05-29-2022 Nystatin 02950 0 UNIT/GM External Cream APPLY AND RUB IN A THIN FILM TO AFFECTED AREAS TWICE DAILY.(AM AND PM). Quantity: 1 Refills: 2 Ordered: 12-Nov-2022 Steven Alfaro MD Start : 29-May-2022 Active ondansetron 4 mg disintegrating oral tablet (20 sources) Serotonin-3 Receptor Antagonist Start: 05-19-2023 End: 10-20-2024 take 1 tablet by mouth every six hours as needed for nausea ondansetron (ZOFRAN-ODT) 4 MG disintegrating tablet Dissolve 1 (one) tablet (4 mg total) on top of tongue every 6 to 8 hours as needed for nausea . 20 tablet 05/19/2023 Active Start: 03-13-2022 End: 03-16-2022 take 1 tablet by mouth three times daily ondansetron 4 mg oral tablet, disintegrating ; 1 tab(s) orally 3 times a day Quantity: 12 Refills: 0 Ordered: 13-Mar-2022 Xochitl Will Start: 13-Mar-2022 End: 16-Mar-2022 Generic Substitution Allowed pantoprazole 20 mg delayed release oral tablet (20 sources) Proton Pump Inhibitor Start: 04-01-2025 take 1 tablet by mouth once daily pantoprazole (PROTONIX) 20 MG tablet Indications: Gastroesophageal reflux disease, unspecified whether esophagitis present Take 1 (one) tablet (20 mg total) by mouth daily . 100 tablet 3 04/01/2025 Active Start: 02-15-2019 End: 01-11-2025 take 1 tablet by mouth once daily Pantoprazole 40 mg tablet,delayed release (DR/EC) Discontinued 40 mg PO DAILY February 01, 2021 12:00am January 11, 2025 1:04pm Start: 02-15-2019 End: 04-01-2025 pantoprazole (PROTONIX) 20 M G tablet Take by mouth . 02/15/2019 04/01/2025 Discontinued (Reorder (Suppress CancelRx Message to Pharmacy)) predniSONE 20 mg oral tablet (20 sources) Start: 03-10-2025 End: 03-15-2025 take 2 tablets by mouth once daily predniSONE (DELTASONE) 20 MG tablet Indications: Upper respiratory tract infection, unspecified type Take 2 (two) tablets (40 mg total) by mouth daily for 5 days . 10 tablet 03/10/2025 03/15/2025 Active Start: 10-28-2024 End: 11-02-2024 take 2 tablets by mouth once daily predniSONE (DELTASONE) 20 MG tablet Indications: COPD with acute exacerbation (HCC) Take 2 (two) tablets (40 mg total) by mouth daily for 5 days . 10 tablet 10/28/2024 11/02/2024 Active Start: 07-13-2024 End: 07-18-2024 take 2 tablets by mouth once daily predniSONE (DELTASONE) 20 MG tablet Take 2 (two) tablets (40 mg total) by mouth daily for 5 days . 10 tablet 07/13/2024 07/18/2024 Active Start: 04-12-2024 End: 04-17-2024 take 2 tablets by mouth once daily predniSONE (DELTASONE) 20 MG tablet Indications: COPD with acute exacerbation (HCC) Take 2 (two) tablets (40 mg total) by mouth daily for 5 days . 10 tablet 0 04/12/2024 04/17/2024 Active Start: 01-02-2023 take 2 tablets by mo uth once daily predniSONE 20 MG Oral Tablet TAKE 2 TABLETS DAILY. Quantity: 10 Refills: 0 Ordered: 02-Jan-2023 tSeven Alfaro MD Start : 02-Jan-2023 Active Start: 03-13-2022 End: 03-13-2022 take 1 tablet by mouth once at mealtime, then take 1 tablet by mouth once daily, then take 1 tablet by mouth once daily predniSONE 20 mg oral tablet ; 1 tab(s) orally once 3XDAY FOR 3 DAYS THEN 1 TAB DAILY 2X DAY FOR 3 DAYS THEN ONE TAB DAILY FOR 3 DAYS Quantity: 18 Refills: 0 Ordered: 13-Mar-2022 Xochitl Will Start: 13-Mar-2022 End: 13-Mar-2022 Generic Substitution Allowed Comments: It is very important that you take or use this exactly as directed. Do not skip doses or discontinue unless directed by your doctor.Obtain medical advice before taking any non-prescription drugs as some may affect the action of this medication.Take with food or milk. Start: 02-13-2022 End: 01-11-2025 take 4 tablets by mouth once daily, then take 3 tablets by mouth once daily, then take 2 tablets by mouth once daily, then take 1 tablet by mouth once daily predniSONE (Deltasone) 10 mg tablet Indications: Chronic obstructive pulmonary disease, unspecified COPD type (CMS/HCC) Take 4 tablets (40 mg) by mouth once daily for 3 days, THEN 3 tablets (30 mg) once daily for 3 days, THEN 2 tablets (20 mg) once daily for 3 days, THEN 1 tablet (10 mg) once daily for 3 days. 30 tablet 0 11/17/2023 11/29/2023 Active Start: 11-09-2021 End: 01-18-2022 take 3 tablets by mouth once daily at mealtime Prednisone 20 mg tablet Discontinued 60 mg PO daily 15 0 November 09, 2021 1:00am January 18, 2022 9:01am administer with food or milk Start: 11-09-2021 End: 01-18-2022 take 60 mg by mouth once daily at mealtime Prednisone Discontinued 60 MG PO daily November 09, 2021 9:48am January 18, 2022 9:01am administer with food or milk Start: 10-18-2019 take 2 tablets by mo uth once daily predniSONE 20 MG Oral Tablet TAKE 2 TABLETS DAILY. Quantity: 10 Refills: 0 Steven Alfaro MD Start : 18-Oct-2019 Active Start: 02-02-2019 End: 02-07-2019 take 2 tablets by mouth once daily Prednisone 20 mg tablet Discontinued 40 mg PO DAILY 10 5 0 February 02, 2019 12:00am February 06, 2019 12:00am February 07, 2019 12:08am Start: 02-02-2019 End: 02-07-2019 take 40 mg by mouth once daily Prednisone Discontinued 40 MG PO DAILY 10 5 February 02, 2019 1:02pm February 07, 2019 12:08am Start: 11-13-2018 End: 05-10-2020 Prednisone 10 mg tablet Discontinued 10 mg PO daily 30 0 November 19, 2018 1:00am May 10, 2020 8:02am take 4 tabs for three days, then 3 tabs for three days, then 2 tabs for three days, then 1 tab for 3 days Start: 05-14-2018 End: 11-19-2018 take 3 tablets by mouth once daily at mealtime Prednisone 20 mg tablet Discontinued 60 mg PO daily 15 May 14, 2018 12:00am November 19, 2018 12:09pm administer with food or milk Start: 05-14-2018 End: 11-19-2018 take 60 mg by mouth once daily at mealtime Prednisone Discontinued 60 MG PO daily May 14, 2018 1:40pm November 19, 2018 12:09pm administer with food or milk Start: 07-21-2014 End: 03-07-2015 take 4 tablets by mouth once daily, then take 3 tablets by mouth once daily, then take 2 tablets by mouth once daily, then take 1 tablet by mouth once daily predniSONE (DELTASONE) 10 MG tablet Indications: Chronic airway obstruction (HCC) , Asthma, moderate persistent, with acute exacerbation 4 10 mg tabs orally each day x 3 days, 3 tabs daily x 3D, 2 daily x 3D, 1 daily x 3 D, stop 30 tablet 4 07/21/2014 03/07/2015 Discontinued (Reorder (Suppress CancelRx Message to Pharmacy)) Comment on above: It is very important that you take or use this exactly as directed. Do not skip doses or discontinue unless directed by your doctor.Obtain medical advice before taking any non-prescription drugs as some may affect the action of this medication.Take with food or milk. semaglutide, weight loss, (Wegovy) 0.25 mg/0.5 mL Pen (8 sources) Start: 2024 inject 0.5 mL by subcutaneous injection every week semaglutide, weight loss, (Wegovy) 0.25 mg/0.5 mL Pen Indications: Morbid obesity with body mass index (BMI) of 40.0 or higher (HCC) Inject 0.5 mL (0.25 mg total) under the skin once a week . 2 mL 1 11/22/2024 Active simvastatin 40 mg oral tablet (20 sources) HMG-CoA Reductase Inhibitor Start: 2013 End: 2024 take 1 tablet by mouth once daily simvastatin (ZOCOR) 40 MG tablet Indications: Hyperlipidemia, unspecified hyperlipidemia type Take 1 (one) tablet (40 mg total) by mouth daily . 100 tablet 3 11/22/2024 Active SUMAtriptan 50 mg oral tablet (20 sources) Serotonin-1b and Serotonin-1d Receptor Agonist Start: 2022 End: 2023 SUMAtriptan (IMITREX) 50 MG tablet Indications: Vestibular migraine Take 1 (one) tablet (50 mg total) by mouth every 2 (two) hours as needed for migraine Max of 200 mg in 24hrs, do not treat more than 3 times a week . 10 tablet 2023 Active valACYclovir 500 mg oral tablet (18 sources) Herpesvirus Nucleoside Analog DNA Polymerase Inhibitor, Herpes Simplex Virus Nucleoside Analog DNA Polymerase Inhibitor, Herpes Zoster Virus Nucleoside Analog DNA Polymerase Inhibitor Start: 2024 take 1 tablet by mouth twice daily Valacyclovir 500 mg tablet Active 500 mg PO TWICE A DAY May 13, 2025 12:00am Start: 07-07-2020 End: 05-25-2023 take 1 tablet by mouth twice daily valACYclovir (Valtrex) 500 mg tablet Indications: Routine general medical examination at health care facility Take 1 tablet (500 mg) by mouth 2 times a day for 10 days. 20 tablet 0 05/15/2023 05/25/2023 Active Completed/Discontinued Medications Medication Drug Class(es) Dates Sig (Normalized) Sig (Original) acetaminophen 325 mg oral tablet (1 source) Start: 10-19-2024 End: 10-20-2024 take 1 tablet by mouth every four hours as needed for pain and headache 650 mg, Oral, Every 4 hours PRN, mild pain, fever 100.4 F or greater, headaches, Starting on Fri10/19/24 at 1156 albuterol 0.833 mg/ml / ipratropium bromide 0.167 mg/ml inhalation solution (20 sources) Anticholinergic, beta2-Adrenergic Agonist Start: 10-19-2024 End: 10-20-2024 take 3 mL by inhalation every four hours as needed 3 mL, Nebulization, Every 4 hours PRN (RT), shortness of breath, Starting on Fri10/19/24 at 1245 Start: 07-13-2024 End: 10-11-2024 ipratropium-albuteroL (DUO-N EB) 0.5-2.5 mg/3 ml nebulizer Indications: COPD with asthma (HCC) Take 3 mL by nebulization 3 (three) times a day . 270 mL 2 07/13/2024 Active Albuterol Sulfate (Ventolin Hfa) 90 mcg/actuation HFA aerosol inhaler (3 sources) Start: 02-02-2019 End: 08-05-2019 Albuterol Sulfate (Ventolin Hfa) 90 mcg/actuation HFA aerosol inhaler Discontinued 2 NMA INHALATION EVERY 6 HOURS as needed for shortness of breath or wheezing 20 04February 02, 2019 1:00pm August 05, 2019 1:43pm Start: 02-02-2019 End: 08-05-2019 take 1 puff(s) by inhalation every six hours Albuterol Sulfate (Ventolin Hfa) 90 mcg/actuation HFA aerosol inhaler Discontinued 2 PUFF INHALATION EVERY 6 HOURS February 02, 2019 1:00pm August 05, 2019 1:43pm 1 ml atropine sulfate 1 mg/ml injection (1 source) Anticholinergic, Cholinergic Muscarinic Antagonist Start: 10-20-2024 End: 10-20-2024 1 mg, Intravenous, As needed, If HR less than 40 or continued symptomatic bradycardia, Starting on Fri10/20/24 at 0828, For 3 doses, Intra-Procedure, Administer over 1 minute. May repeat as needed every 3 minutes (maximum dose of 3 mg). azelastine hydrochloride 0.137 mg/actuat metered dose nasal spray (14 sources) Histamine-1 Receptor Antagonist Start: 02-01-2021 End: 05-15-2023 take 1 spray(s) nasal route twice daily Azelastine HCl - 137 MCG/SPRAY Nasal Solution USE 1 SPRAY(S) IN EACH NOSTRIL TWICE DAILY Quantity: 30 Refills: 0 Ordered: 31-Mar-2021 DO Start : 01-Feb-2021 Active Start: 02-01-2021 End: 01-11-2025 Azelastine 137 mcg (0.1 %) aerosol,spray Discontinued 1 NMA INTRANASAL TWICE A DAY 02 05September 12, 2022 12:19pm January 11, 2025 1:04pm administer into each nostril Start: 02-01-2021 End: 01-18-2022 take 1 spray(s) nasal route twice daily Azelastine Active 1 SPRAY INTRANASAL TWICE A DAY January 18, 2022 10:58am administer into each nostril azelastine 137 m cg/inh (0.1%) nasal spray ; 2 spray(s) nasal 2 times a day Quantity: 0 Refills: 0 Ordered: 13-Mar-2022 Salome Bee Generic Substitution Allowed azelastine hydrochloride 0.137 mg/actuat / fluticasone propionate 0.05 mg/actuat metered dose nasal spray (20 sources) Corticosteroid, Histamine-1 Receptor Antagonist Start: 02-02-2019 End: 05-15-2023 take 1 spray(s) nasal route twice daily azelastine-fluticasone 137-50 mcg/spray spray,non-aerosol Administer 1 spray into each nostril 2 times a day. 0 02/02/2019 05/15/2023 Discontinued (Therapy completed) Start: 05-14-2018 End: 02-01-2021 Azelastine-Fluticasone (Dymi sta) 137-50 mcg/spray spray,non-aerosol Discontinued 1 NMA INTRANASAL TWICE A DAY 25 04February 02, 2019 1:05pm February 01, 2021 11:25am administer into each nostril Start: 05-14-2018 End: 02-01-2021 take 1 spray(s) nasal route twice daily azelastine-fluticasone 137 mcg-50 mcg/spray nasal spray Discontinued 1 SPRAY INTRANASAL TWICE A DAY February 02, 2019 1:05pm February 01, 2021 11:25am administer into each nostril bisacodyl 10 mg rectal suppository (1 source) Stimulant Laxative Start: 10-19-2024 End: 10-20-2024 take 10 mg rectal route once daily as needed for constipation 10 mg, Rectal, Daily PRN, constipation, Starting on Fri10/19/24 at 1156, Try oral medications first for constipation. Try rectal medication if oral meds are ineffective, not tolerated, or not ordered. calcium carbonate 1500 mg / cholecalciferol 800 unt oral tablet (9 sources) Vitamin D End: 08-30-2024 calcium carbonate-vitamin D3 600 mg-20 mcg (800 unit) Tab Take 1 tablet by mouth . 08/30/2024 Discontinued (Patient's Request) Calcium 600+D or al tablet ; 1 tab(s) orally once a day // Oscal 600 + D3 Quantity: 0 Refills: 0 Ordered: 13-Mar-2022 Salome Bee Generic Substitution Allowed cholecalciferol 0.025 mg oral capsule (4 sources) Vitamin D Start: 03-11-2018 End: 01-11-2025 take 1 capsule by mouth once daily Cholecalciferol (Vitamin D3) 1,000 unit capsule Discontinued 1000 U PO daily March 11, 2018 12:00am January 11, 2025 1:00pm take 1 tablet by mouth once la y Vitamin D3 25 mcg (1000 intl units) oral tablet ; 1 tab(s) orally once a day Quantity: 0 Refills: 0 Ordered: 13-Mar-2022 Salome Bee Generic Substitution Allowed diazePAM 5 mg oral tablet (2 sources) Benzodiazepine Start: 05-19-2023 End: 04-12-2024 take 1 tablet by mouth twice daily as needed for dizziness diazePAM (VALIUM) 5 MG tablet Indications: Vertigo Take 1 (one) tablet (5 mg total) by mouth 2 (two) times a day as needed (dizziness) . 8 tablet 0 05/19/2023 04/12/2024 Discontinued escitalopram 5 mg oral tablet (2 sources) Serotonin Reuptake Inhibitor Start: 04-01-2025 End: 04-01-2025 take 1 tablet by mouth once daily escitalopram oxalate (LEXAPRO) 5 MG tablet Indications: Anxiety , Moderate major depression (HCC) Take 1 (one) tablet (5 mg total) by mouth daily . 30 tablet 11 04/01/2025 04/01/2025 Discontinued Fluad Quad 2595-5501(65yr up)(PF) 60 mcg (15 mcg x 4)/0.5mL IM syringe (flu vac (1 source) Start: 08-16-2021 End: 08-16-2021 Fluad Quad (65yr up)(PF) 60 mcg (15 mcg x 4)/0.5mL IM syringe (flu vac Discontinued 60 MCG IM ONCE 0.5 August 16, 2021 10:59am August 16, 2021 11:38am 12 hr guaiFENesin 600 mg extended release oral tablet (8 sources) Start: 05-13-2025 End: 05-13-2025 take 1 tablet by mouth twice daily Guaifenesin 600 mg tablet extended release 12hr Discontinued 600 mg PO TWICE A DAY May 13, 2025 12:00am May 13, 2025 11:42am Start: 04-19-2025 End: 04-29-2025 take 1 tablet by mouth twice daily guaiFENesin (MUCINEX) 600 mg 12 hr tablet Indications: COPD with acute exacerbation (HCC) Take 1 (one) tablet (600 mg total) by mouth 2 (two) times a day for 10 days . 20 tablet 04/19/2025 04/29/2025 Active Start: 11-18-2018 End: 01-11-2025 take 1 tablet by mouth every twelve hours Guaifenesin 1,200 mg tablet extended release 12hr Discontinued 1200 mg PO Q12H 30 January 18, 2022 11:01am January 11, 2025 1:01pm hydrocortisone 25 mg/ml topical cream (3 sources) Corticosteroid Start: 09-05-2022 Hydrocortisone 2.5 % External Cream APPLY TO AREAS OF THE RASH UNDER THE BREASTS 1 TO 2 TIMES DAILY WHEN RED OR ITCHY Quantity: 84 Refills: 0 Ordered: 28-Oct-2022 DO Start : 05-Sep-2022 Active iopamidoL (ISOVUE-370) 370 mg iodine /mL (76 %) injection 110 mL (1 source) Start: 10-20-2024 End: 10-20-2024 110 mL, Intravenous, Once in imaging, contrast, Starting on Fri10/20/24 at 1130, For 1 dose melatonin 5 mg oral tablet (1 source) Start: 10-19-2024 End: 10-20-2024 5 mg, Oral, Nightly PRN, Sleep, Starting on Fri10/19/24 at 1156, If still awake in 1 hour proceed to trazodone (Desyrel) Omivoxie-Kzb-Atbkf Acid-Lutein (Centrum Silver) 400-250 mcg tablet,chewable (1 source) Start: 03-11-2018 End: 01-11-2025 Sahlnnqw-Stk-Bzive Acid-Lutein (Centrum Silver) 400-250 mcg tablet,chewable Discontinued {tbl} PO 0 March 11, 2018 12:00am January 11, 2025 1:03pm iwinupgb-ejy-zpff-FA- lutein (Centrum Silver Women) 8 mg iron-400 mcg-300 mcg Tab (2 sources) End: 04-12-2024 take 1 tablet by mouth once wcieubkp-tdo-hidj-FA -lutein (Centrum Silver Women) 8 mg iron-400 mcg-300 mcg Tab Take 1 tablet by mouth . 0 04/12/2024 Discontinued take 1 tablet by mouth once mult strm-klk-wwqr-FA-lutein (Centrum Silver Women) 8 mg iron-400 mcg-300 mcg Tab Take 1 tablet by mouth . 0 Active perflutren lipid microspheres (DEFINITY) 0.143 mg/mL solution 0-10 mL of mixture (1 source) Start: 10-19-2024 End: 10-20-2024 0-10 mL of mixture, Intravenous, Once in imaging, contrast, IF suboptimal echo, Starting on Fri10/19/24 at 1200, For 48 hours, Prepare syringe by withdrawing 1.3 mL of perflutren (DEFINITY) from the 2ml vial. Further dilute the 1.3 mL of perflutren with Sodium Chloride (NS) 0.9% to total volume of 10 ml. Chart total ML OF MIXTURE given to patient. phentermine hydrochloride 37.5 mg oral tablet (1 source) Sympathomimetic Amine Anorectic Start: 08-17-2019 take 1 tablet by mouth once daily Phentermine HCl - 37.5 MG Oral Tablet TAKE 1 TABLET DAILY. Quantity: 30 Refills: 0 Steven Alfaro MD Start : 17-Aug-2019 Active microencapsulated potassium chloride 10 meq extended release oral tablet (20 sources) Start: 10-19-2024 End: 10-20-2024 10 mEq, Oral, Daily, First dose on Fri10/19/24 at 1600, DO NOT CRUSH OR CHEW (if instructed may dissolve tablet(s) in liquid) DO NOT ADMINISTER DISSOLVED TABLET VIA SURGICALLY PLACED TUBE OR TUBE less than 14 Swazi. To administer dissolved tablet(s) mix with 4 ounces of water over 2-3 minutes, stir for 30 seconds prior to administration; rinse dosing cup and administer residual medication to ensure full dose given Start: 08-03-2024 take 1 capsule by mo [facility] once daily potassium chloride (MICRO-K) 10 MEQ CR capsule Indications: COPD with acute exacerbation (HCC) Take 1 (one) capsule (10 mEq total) by mouth daily . 90 capsule 1 08/03/2024 Active Start: 10-15-2018 End: 05-14-2024 take 1 tablet by mouth once daily potassium chloride SA (K-DUR,KLOR-CON) 20 MEQ tablet Take 1 (one) tablet (20 mEq total) by mouth daily . 30 tablet 11 05/15/2023 05/14/2024 Active Start: 03-11-2018 take 1 tablet by [facility] once daily Potassium Chloride 20 mEq tablet extended release Active 20 meq PO daily March 11, 2018 12:00am QUEtiapine 25 mg oral tablet (9 sources) Atypical Antipsychotic Start: 06-06-2020 End: 01-11-2025 take 1 tablet by mouth once daily Quetiapine 25 mg tablet Discontinued 25 mg PO DAILY February 01, 2021 12:00am January 11, 2025 1:03pm sennosides[facility] 8.6 mg oral tablet (1 source) Start: 10-19-2024 End: 10-20-2024 take 1 tablet by mouth twice daily as needed for constipation 8.6 mg (1 tablet), Oral, 2 times daily PRN, constipation, Starting on Fri10/19/24 at 1156 Sodium Chloride (2 sources) Start: 10-19-2024 End: 10-20-2024 sodium chloride (PF) (NS) flush 5 mL Start: 10-19-2024 End: 10-20-2024 sodium chloride (PF) (NS) fl ush 5 mL 60 actuat tiotropium 0.0025 mg/actuat inhalation spray (20 sources) Anticholinergic Start: 12-27-2020 End: 11-28-2022 take 2.5 ug by inhalation once daily Tiotropium Ailey (Spiriva Respimat) 2.5 mcg/actuation mist Discontinued 2 NMA INHALATION daily 4 November 25, 2022 8:39am November 28, 2022 2:07pm Start: 12-27-2020 End: 01-18-2022 take 1 puff(s) by inhalation once daily Tiotropium Ailey (Spiriva Respimat) 2.5 mcg/actuation mist Discontinued 2 PUFF INHALATION daily August 16, 2021 11:35am January 18, 2022 10:58am Start: 05-10-2020 End: 12-27-2020 take 1 puff(s) by inhalation once daily Tiotropium Ailey (Spiriva Respimat) 2.5 mcg/actuation mist Discontinued 2 PUFF INHALATION daily May 10, 2020 8:37am December 27, 2020 9:14am Start: 05-10-2020 End: 12-27-2020 take 2.5 ug by inhalation once daily Tiotropium Ailey (Spiriva Respimat) 2.5 mcg/actuation mist Discontinued 2 NMA INHALATION daily 4 May 10, 2020 12:00am December 27, 2020 9:14am Start: 05-10-2020 End: 12-27-2020 take 1 puff(s) by inhalation once daily Tiotropium Ailey (Spiriva Respimat) 2.5 mcg/actuation mist Discontinued 2 PUFF INHALATION daily May 10, 2020 12:00am December 27, 2020 9:14am Start: 10-01-2016 End: 04-12-2024 take 1 capsule by inhalation once daily tiotropium (SPIRIVA WITH HANDIHALER) 18 mcg inhalation capsule Indications: Chronic obstructive pulmonary disease, unspecified COPD type (HCC) , Cough Place 1 capsule (18 mcg total) into inhaler and inhale daily. 90 capsule 4 10/01/2016 04/12/2024 Discontinued Start: 07-21-2014 End: 07-15-2016 take 1 capsule by inhalation once daily tiotropium (SPIRIVA WITH HANDIHALER) 18 mcg inhalation capsule Indications: Chronic airway obstruction (HCC) , Cough Place 1 capsule (18 mcg total) into inhaler and inhale daily. 90 capsule 4 07/21/2014 07/15/2016 Discontinued (Reorder (Suppress CancelRx Message to Pharmacy)) Spiriva Respimat 10 ACT 2.5 mcg/inh inhalation aerosol ; 2 puff(s) inhaled 2 times a day Quantity: 0 Refills: 0 Ordered: 13-Mar-2022 Salome Bee Generic Substitution Allowed tiotropium bromide (SPIRIVA RESPIMAT) 2.5 mcg/actuation inhaler 2 puff (1 source) Start: 10-19-2024 End: 10-20-2024 tiotropium bromide (SPIRIVA RESPIMAT) 2.5 mcg/actuation inhaler 2 puff traZODone hydrochloride 50 mg oral tablet (8 sources) Serotonin Reuptake Inhibitor Start: 10-19-2024 End: 10-20-2024 50 mg, Oral, Nightly PRN, sleep, Starting on Fri10/19/24 at 1156, To be administered 1 hour after melatonin if still awake. May repeat x 1 dose in 30 minutes if still awake. Start: 11-20-2018 take 1 tablet by freddy th at bedtime traZODone HCl - 100 MG Oral Tablet TAKE 1 TABLET AT BEDTIME. Quantity: 90 Refills: 3 Steven Alfaro MD Start : 20-Nov-2018 Active Start: 03-11-2018 End: 02-01-2021 take 1 tablet by mouth once daily Trazodone 50 mg tablet Discontinued 50 mg PO daily March 11, 2018 12:00am February 01, 2021 10:54am Start: 07-15-2014 End: 11-15-2014 take 1 tablet by mouth at bedtime traZODone (DESYREL) 50 MG tablet TAKE ONE TABLET BY MOUTH AT BEDTIME 30 tablet 6 11/13/2014 11/15/2014 Discontinued (Reorder (Suppress CancelRx Message to Pharmacy)) triamcinolone acetonide 40 mg/ml injectable suspension (1 source) Corticosteroid Start: 05-14-2018 End: 05-14-2018 inject 60 mg by intramuscular injection once Kenalog (triamcinolone acetonide) 10 mg/mL suspension for injection Discontinued 60 MG IM ONCE 6 May 14, 2018 12:59pm May 14, 2018 2:08pm 7 actuat umeclidinium 0.0625 mg/actuat dry powder inhaler (11 sources) Anticholinergic Start: 04-27-2024 End: 07-13-2024 take 1 puff(s) by inhalation once daily in the morning Incruse Ellipta 62.5 mcg/actuation DsDv Inhale 1 (one) puff AM for * days . 30 each 3 04/27/2024 07/13/2024 Discontinued Start: 02-20-2024 End: 04-27-2024 Incruse Ellipta 62.5 mcg/act uation DsDv 02/20/2024 04/27/2024 Discontinued (Reorder (Suppress CancelRx Message to Pharmacy)) Start: 05-02-2023 End: 05-14-2024 take 1 puff(s) by inhalation once daily umeclidinium (Incruse Ellipta) 62.5 mcg/actuation inhalation Indications: Chronic obstructive pulmonary disease, unspecified COPD type ([facility]) Inhale 1 puff (62.5 mcg) once daily. 90 each 3 05/15/2023 05/14/2024 Active Start: 11-28-2022 End: 01-11-2025 take 62.5 ug by inhalation once daily Umeclidinium (Incruse Ellipta) 62.5 mcg/actuation blister with device Discontinued 1 NMA INHALATION daily 30 3 November 28, 2022 1:00am January 11, 2025 1:03pm vitamin b12 2.5 mg oral tablet (9 sources) Vitamin B12 End: 08-30-2024 cyanocobalamin, vitamin B-12 , 2,500 mcg Tab Take 1 (one) tablet (2,500 mcg total) by mouth . 08/30/2024 Discontinued (Patient's Request) Problems Active Problems Problem Classification Problem Date Documented Da te Episodic/Chronic Anxiety disorders (20 sources) Anxiety; Translations: [Anxiety state, unspecified] Onset: 05-15-2023 Chronic Asthma (20 sources) Asthma; Translations: [Unspecified asthma, uncomplicated] Onset: 0 07-21-2014 Chronic Chronic obstructive pulmonary disease and bronchiectasis (20 sources) Chronic obstructive lung disease; Translations: [Chronic airway obstruction, not elsewhere classified] Onset: 0 Chronic Comment on above: COPD (chronic obstru ctive pulmonary disease); Chronic obstructive pulmonary disease and bronchiectasis (4 sources) Chronic obstructive pulmonary disease and bronchiectasis; Translations: [Other specified chronic obstructive pulmonary disease] Onset: Conditions associated with dizziness or vertigo (1 source) Vertigo; Translations: [Dizziness and giddiness] 2023 Episodic Congestive heart failure; nonhypertensive (6 sources) Congestive heart failure; Translations: [Heart failure, unspecified] Onset: 4 10-18-2024 Chronic Disorders of lipid metabolism (20 sources) Hyperlipidemia; Translations: [Other and unspecified hyperlipidemia] Onset: 4 10-13-2014 Chronic Esophageal disorders (20 sources) Gastroesophageal reflux disease; Translations: [Esophageal reflux] Onset: 4 07-21-2014 Chronic Headache; including migraine (2 sources) Migraine variants; Translations: [Variants of migraine, not elsewhere classified, without mention of intractable migraine without mention of status migrainosus] 03-13-2022 Chronic Headache; including migraine (1 source) Acute headache; Translations: [Headache] 03-13-2022 Episodic Headache; including migraine (1 source) Headache; including migraine 03-13-2022 Mood disorders (20 sources) Depressive disorder; Translations: [Depression] Onset: 4 10-13-2014 Chronic Neoplasms of unspecified nature or uncertain behavior (3 sources) Neoplasm of uncertain behavior of skin; Translations: [Neoplasm of uncertain behavior of skin] 03-11-2018 Episodic Nutritional deficiencies (3 sources) Vitamin D deficiency; Translations: [Vitamin D deficiency, unspecified] 03-11-2018 Chronic Other and unspecified benign neoplasm (3 sources) Hemangioma of skin; Translations: [Hemangioma of skin and subcutaneous tissue] 03-11-2018 Episodic Other bone disease and musculoskeletal deformities (3 sources) Osteopenia; Translations: [Other specified disorders of bone density and structure, unspecified site] 03-11-2018 Episodic Other ear and sense organ disorders (1 source) Sensorineural hearing loss, bilateral; Translations: [Sensorineural hearing loss, bilateral] 2023 Chronic Other ear and sense organ disorders (1 source) Impacted cerumen in right ear; Translations: [Impacted cerumen, right ear] 2023 Episodic Other inflammatory condition of skin (3 sources) Artefactual skin disease; Translations: [Factitial dermatitis] 03-11-2018 Episodic Other injuries and conditions due to external causes (1 source) At low risk for fall; Translations: [History of falling] 10-28-2024 Episodic Other lower respiratory disease (1 source) Multiple nodules of lung; Translations: [Other nonspecific abnormal finding of lung field] 11-16-2024 Episodic Other non-epithelial cancer of skin (3 sources) Personal history of other malignant neoplasm of skin 03-11-2018 Episodic Other nutritional; endocrine; and metabolic disorders (20 sources) Obesity; Translations: [Obesity, unspecified] Onset: 0 07-21-2014 Chronic Comment on above: Class 2 severe obesi ty due to excess calories with serious comorbidity and body mass index (BMI) of 35.0 to 35.9 in adult; Other nutritional; endocrine; and metabolic disorders (15 sources) Severe obesity; Translations: [Morbid obesity] 04-12-2024 Chronic Comment on above: Class 3 severe obesi ty due to excess calories with serious comorbidity and body mass index (BMI) of 40.0 to 44.9 in adult; Other nutritional; endocrine; and metabolic disorders (4 sources) Body mass index 40+ - severely obese; Translations: [Morbid (severe) obesity due to excess calories] 11-22-2024 Chronic Other nutritional; endocrine; and metabolic disorders (4 sources) Morbid (severe) obesity due to excess calories; Translations: [Morbid (severe) obesity due to excess calories] Onset: Chronic Other skin disorders (3 sources) Actinic keratosis; Translations: [Actinic keratosis] 03-11-2018 Episodic Other skin disorders (3 sources) Seborrheic keratosis; Translations: [Other seborrheic keratosis] 03-11-2018 Episodic Other skin disorders (3 sources) Lentiginosis; Translations: [Other melanin hyperpigmentation] 03-11-2018 Episodic Other skin disorders (1 source) Epidermoid cyst of skin of ear; Translations: [Sebaceous cyst] 2023 Episodic Other upper respiratory disease (20 sources) Allergic rhinitis; Translations: [Allergic rhinitis, unspecified] Onset: 0 07-21-2014 Chronic Other upper respiratory disease (20 sources) Seasonal allergy; Translations: [Other seasonal allergic rhinitis] Onset: 4 07-13-2024 Chronic Other upper respiratory disease (2 sources) Allergic rhinitis due to pollen; Translations: [Allergic rhinitis due to pollen] 11-22-2024 Chronic Other upper respiratory disease (2 sources) Allergic rhinitis due to pollen; Translations: [Allergic rhinitis due to pollen] Onset: 4 Chronic Other upper respiratory infections (13 sources) Posterior rhinorrhea; Translations: [Postnasal drip] Onset: 5 02-10-2025 Episodic Phlebitis; thrombophlebitis and thromboembolism (2 sources) Deep venous thrombosis of peroneal vein 08-30-2024 Chronic Pulmonary heart disease (5 sources) Pulmonary hypertension; Translations: [Pulmonary hypertension, unspecified] Onset: 4 10-18-2024 Chronic Residual codes; unclassified (19 sources) Sleep apnea; Translations: [Unspecified sleep apnea] Onset: 3 05-13-2023 Chronic Residual codes; unclassified (1 source) Persistent insomnia; Translations: [Insomnia, persistent] Chronic Residual codes; unclassified (20 sources) Obstructive sleep apnea syndrome; Translations: [Obstructive sleep apnea (adult) (pediatric)] Onset: 0 07-21-2014 Chronic Comment on above: CPAP 9 cmH2O Residual codes; unclassified (3 sources) Obstructive sleep apnea (adult) (pediatric); Translations: [Obstructive sleep apnea (adult)(pediatric)] Onset: 3 Chronic Residual codes; unclassified (20 sources) Insomnia; Translations: [Insomnia, unspecified] Onset: 0 07-21-2014 Episodic Residual codes; unclassified (3 sources) History of nasal sinus surgery; Translations: [Other specified postprocedural states] 03-11-2018 Episodic Substance-related disorders (20 sources) Tobacco dependence in remission; Translations: [Nicotine dependence, cigarettes, in remission] Onset: 4 Chronic Comment on above: Quit 08/22/2022 Thyroid disorders (20 sources) Hypothyroidism; Translations: [Unspecified acquired hypothyroidism] Onset: 3 05-13-2023 Chronic Unclassified (2 sources) STABBING PAIN IN HEAD 03-13-2022 Comment on above: STABBING PAIN IN HEA D Unclassified (1 source) 6 MO FU REV LABS 10-09-2021 Comment on above: 6 MO FU REV LABS Unclassified (1 source) Migraine variant 03-13-2022 Unclassified (4 sources) Acute embolism and thrombosis of right peroneal vein; Translations: [Acute embolism and thrombosis of right peroneal vein] Onset: 5 Unclassified (2 sources) [facility] ORDER DOCUMENTATION Onset: 5 Unclassified (1 source) Cough, unspecified; Translations: [Cough, unspecified] Onset: 4 Past or Other Problems Problem Classification Problem Date Documented Da te Episodic/Chronic Acute bronchitis (20 sources) Acute bronchitis; Translations: [Acute bronchitis, unspecified] Onset: 07-13-2024 07-13-2024 Episodic Diabetes mellitus without complication (20 sources) Hyperglycemia; Translations: [Other abnormal glucose] Onset: 05-13-2023 05-15-2023 Episodic Mood disorders (20 sources) Mood disorders Onset: 04-12-2024 Resolved: 04-01-2025 04-12-2024 Nonspecific chest pain (20 sources) Atypical chest pain; Translations: [Other chest pain] Onset: 10-19-2024 10-19-2024 Episodic Other and unspecified benign neoplasm (19 sources) Polyp of colon; Translations: [Benign neoplasm of colon] Onset: 05-13-2023 05-13-2023 Episodic Other bone disease and musculoskeletal deformities (20 sources) Disorder of skeletal system; Translations: [Disorder of bone, unspecified] Onset: 07-21-2014 07-21-2014 Episodic Other injuries and conditions due to external causes (2 sources) History of falling; Translations: [History of falling] Onset: 10-28-2024 Episodic Other lower respiratory disease (20 sources) Cough; Translations: [Cough] Onset: 06-05-2010 Resolved: 05-13-2023 07-21-2014 Episodic Other lower respiratory disease (20 sources) Dyspnea; Translations: [Shortness of breath] Onset: 07-13-2024 07-13-2024 Episodic Other lower respiratory disease (20 sources) Wheezing; Translations: [Wheezing] Onset: 07-13-2024 07-13-2024 Episodic Other lower respiratory disease (2 sources) Other nonspecific abnormal finding of lung field; Translations: [Other nonspecific abnormal finding of lung field] Onset: 11-17-2024 Episodic Other lower respiratory disease (1 source) Shortness of breath; Translations: [Shortness of breath] Onset: 07-13-2024 Episodic Other screening for suspected conditions (not mental disorders or infectious disease) (20 sources) Patient encounter status; Translations: [Breast screening, unspecified] Onset: 07-24-2024 Episodic Phlebitis; thrombophlebitis and thromboembolism (12 sources) Deep venous thrombosis of peroneal vein; Translations: [Acute embolism and thrombosis of right peroneal vein] Onset: 11-16-2024 08-29-2024 Episodic Pneumonia (except that caused by tuberculosis or sexually transmitted disease) (3 sources) Community acquired pneumonia; Translations: [Pneumonia, unspecified organism] Onset: 09-16-2024 09-16-2024 Episodic Pulmonary heart disease (20 sources) Pulmonary thromboembolism; Translations: [Other pulmonary embolism without acute cor pulmonale] Onset: 07-25-2024 08-30-2024 Episodic Residual codes; unclassified (17 sources) Persistent insomnia; Translations: [Persistent disorder of initiating or maintaining sleep] Onset: 05-13-2023 05-13-2023 Episodic Residual codes; unclassified (9 sources) Past history of procedure; Translations: [Other specified personal history presenting hazards to health] Onset: 04-11-2020 Episodic Residual codes; unclassified (3 sources) Bilateral lower leg edema; Translations: [Localized edema] Onset: 05-15-2023 05-15-2023 Episodic Residual codes; unclassified (2 sources) Localized edema; Translations: [Localized edema] Onset: 05-15-2023 Episodic Thyroid disorders (3 sources) Atrophy of thyroid - acquired; Translations: [Atrophy of thyroid (acquired)] Onset: 05-13-2023 05-15-2023 Episodic Unclassified (2 sources) Patient encounter status; Translations: [Screening breast examination] Unclassified (11 sources) Onset: 05-15-2023 Resolved: 10-27-2024 05-15-2023 Unclassified (1 source) Cough, unspecified; Translations: [Cough, unspecified] Onset: 10-28-2024 NEGATED: Highlighted row has not occurred!Residual codes; unclassified (7 sources) Disease Episodic Results Test Name Value Interpretation Reference Range Facility POC Covid-19, Molecularon SARS-CoV-2 (COVID-19) RdRp gene VERA+probe Ql (Resp) Not detected Not Detected [facility] POC Influenza A/B, Molecular on 03-10-2025 FLUAV RNA VERA+probe Ql (Unsp spec) Negative Negative [facility] FLUBV RNA VERA+probe Ql (Unsp spec) Negative Negative [facility] SARS-CoV-2 (COVID-19) RdRp g marilee VERA+probe Ql (Resp)on 03-10-2025 [facility] DUPLEX VENOUS LEG RIGHTon 02-14-2025 DUPLEX VENOUS LEG RIGHT Patient Info Name: LOLA DREW Age: 74 years : 1950 Gender: Female Exam Date: 02/14/2025 12:42 PM Patient Status: Outpatient [place]: Pooja Clemens RDMS, RVT Referring Physician: ROGELIO PANDA ; Indications i82.451 - - DVT right peroneal vein Procedure Description 53721 Duplex examination using B-mode, color and spectral Doppler of extremity veins including responses to compression and other maneuvers; unilateral or limited study. Conclusions * Right. * Complete resolution of thrombus in the right peroneal veins. * All other veins are within normal in the right lower extremity. Prior Study Date: 09/15/2024 Risk Factors Patient has a history of hypertension, tobacco use-previous, DVT and PE. . Report Signatures Finalized by Vilma Samayoa MD on 02/14/2025 01:17 PM [facility] DUPLEX VENOUS LEG RIGHT Patient Info Name: LOLA DREW Age: 74 years : 1950 Gender: Female Exam Date: 02/14/2025 12:42 PM Patient Status: Outpatient Timber Hand: Pooja Clemens RDMS, RVT Referring Physician: ROGELIO PANDA ; Indications i82.451 - - DVT right peroneal vein Procedure Description 60671 Duplex examination using B-mode, color and spectral Doppler of extremity veins including responses to compression and other maneuvers; unilateral or limited study. Conclusions * Right. * Complete resolution of thrombus in the right peroneal veins. * All other veins are within normal in the right lower extremity. Prior Study Date: 09/15/2024 Risk Factors Patient has a history of hypertension, tobacco use-previous, DVT and PE. . Report Signatures Finalized by Vilma Samayoa MD on 02/14/2025 01:17 PM Dictated by: VILMA SAMAYOA on FriFeb 14, 2025 1:18:53 PM EDT Transcribed by: VILMA SAMAYOA on FriFeb 14, 2025 1:18:53 PM EDT Finalized by: VILMA SAMAYOA on FriFeb 14, 2025 1:18:53 PM EDT Normal [facility] Pulmonary Visit Reporton Pulmonary Visit Report [facility] [place] [address] [place] [address]. [address] [place] [address] OFFICE VISIT Date of Service: 01/11/25 MR#: [id number] Acct: [id number] Name: LOLA DREW Rep #: [id number] : 1950 Provider: JOSE G Pérez Age/Sex: 74/F [facility] Status: Signed Assessment and Plan Assessment and Plan (1) Asthma-COPD overlap syndrome: Status: Chronic Plan: Stable, she does not appear to be an exacerbation of COPD today. No need for prednisone or antibiotic. Continue current maintenance medication, symptomatically controlled on triple therapy with the use of Trelegy. No additional testing at this time. Contact the office for any new or worsening symptoms. An acute visit and typically be arranged within 1-2 days. Follow-up in 6 months. (2) JOHNATHAN (obstructive sleep apnea): Status: Chronic Comment: CPAP 9 cmH2O Plan: Patient is using and benefiting from Pap therapy. No indication for titration study at this time. Contact the office for any new or worsening symptoms in the meantime. Follow-up in 6 months. (3) Smoking greater than 40 pack years: Status: Chronic Comment: Quit 08/22/2022 Plan: Continue to encourage ongoing smoking cessation. She remains appropriate for repeat low-dose CT lung cancer screening which will be due in July 2025. Orders placed accordingly. (4) Obesity: Status: Chronic Qualifiers: Obesity type: due to excess calories Obesity classification: adult class 2 (BMI 35 - 39.9) Serious obesity comorbidity presence: with serious comorbidity Body mass index: BMI 39.0-39.9 Qualified Code(s): E66.812 - Obesity, class 2; E66.01 - Morbid (severe) obesity due to excess calories; Z68.39 - Body mass index [BMI] 39.0-39.9, adult Plan: Complicates exam, plan, care and prognosis. Continue to encourage weight loss. Orders: Orders Low Dose CT Lung Screening 07/04/25 F17.200 - Nicotine dependence, unspecified, uncomplicated, F17.210 - Nicotine dependence, cigarettes, uncomplicated Medications: Refilled fluticasone propionate 50 mcg/actuation (Flonase Allergy Relief) administer into each nostril 2 sprays intranasal QDAY 15.8 mL 6RF F17.210 - Nicotine dependence, cigarettes, uncomplicated Plan Details Follow Up: 6 Months HPI Re-establishing care Chief Complaint: reestablish HPI Comments Details: This patient presents to the office today to reestablish care regarding her asthma/COPD overlap syndrome with obstructive sleep apnea. She is ambulatory and currently on room room air. She has not been seen in the ED or urgent care for any respiratory illnesses since her last office visit. She has not required any antibiotics or prednisone since then. She has a greater than [id number] smoking history. She has been successful at quitting smoking for 2.5 years. She does admit to vaping. She is compliant with the use of Trelegy once daily. She reports rinsing her mouth out after each use. She denies any medication side effect such as sore throat or thrush. She is also compliant with Singulair and Flonase daily. She is currently using her albuterol HFA rarely. She denies any shortness of breath. She denies any cough, sputum production or hemoptysis. She denies any wheezing, chest tightness, chest pain or palpitations. She has not had any fever, chills or body aches. She denies any issues with her Pap device. She wakes up feeling rested and refreshed. She is not requiring naps. She has not fallen asleep unintentionally. She denies any difficulty with excessive nocturia or dry mouth in the morning. Compliance report for the past 30 days shows 100% compliance with an average use of 9 hours and 14 minutes per night. Current setting is 9 cmH2O with a residual AHI of 0.4 events per hour. Leaks do not appear to be an issue. Intake Vital Signs 04/02/23 07:46 01/11/25 08:36 Height 5 ft 4 in 5 ft 4 in Weight: 232 lb BMI 39.8 BP 114/66 Blood Pressure Location Rt brachial Position Sitting Respiration 20 H Pulse 57 L Pulse Source Monitor Temp 97.3 F L Temperature Source Temporal Artery Pulse Oximetry (%) 95 Oxygen Delivery Method room air Intake Visit Reasons: Re-establishing care Chief Complaint: Shortness of breath on exertion [employer] Required: No DME Vendor: [facility] Accompanied by: Self Is patient in pain?: No Allergies amoxicillin Allergy (Mild, Verified 01/11/25 12:59) Hives sulfasalazine (From Sulfazine) Allergy (Mild, Verified 01/11/25 12:59) Hives Medications ???Medication ???Instructions ???Recorded ???Confirmed ???Type duloxetine 60 mg capsule,delayed 60 mg PO QDAY 03/11/18 01/11/25 Hi story release (Cymbalta) furosemide 40 mg tablet 40 mg PO QDAY 03/11/18 01/11/25 Hi story potassium chloride 20 mEq 20 (more content not included)... Normal [facility] XR CHEST AP/PA AND LATon XR CHEST AP/PA AND LAT EXAMINATION: XR CHEST AP/PA AND LAT HISTORY: ORDERING SYSTEM PROVIDED HISTORY: COPD with acute exacerbation (HCC), TECHNOLOGIST PROVIDED HISTORY: Illness/Other Reason for exam: COPD with acute exacerbation-pt has had cough for a while now and causes left upper chest pain with some SOB Cancer History: no Surgery, RadiationHistory: appendix, tonsils Encounter Type: Initial Additional signs and symptoms: [facility] ORDERING SYSTEM PROVIDED DIAGNOSIS CODES: J44.1 COPD with acute exacerbation (HCC) COMPARISON: 10/19/2024. FINDINGS: Two-view chest x-ray. No pneumothorax, pleural effusion or focal airspace consolidation. Heart is normal in size. There are multilevel degenerative changes of the thoracic spine. IMPRESSION: No focal airspace disease. /tr Workstation ID: [id number] Dictated by: ANGELO CHRISTOPHER on FriOct 28, 2024 12:13:17 PM EST Transcribed by: GRETA HANSON on FriOct 28, 2024 12:38:52 PM EST Finalized by: ANGELO CHRISTOPHER on FriOct 28, 2024 5:09:05 PM EST Normal [facility] Comment on above: Order Comment: Injur y/Trauma or Illness?:Illness/Other How long have you had these symptoms (acute/chronic)?:Acute Reason for exam?:COPD with acute exacerbation-pt has had cough for a while now and causes left upper chest pain with some sob History of cancer?:no Surgeries, chemotherapy, or radiation?:appendix, tonsils Type of Exam?:Initial Additional signs and symptoms?:vapes BASIC METABOLIC PANELon - Anion gap [Moles/Vol] 13 mmol/L Normal 10-20 [facility] Comment on above: Order Comment: [facility] has implemented the eGFR calculation approach that does not have a coefficient for race that conforms to the NKF-ASN Task Force Recommendations. Performed By: #### L [id number] #### [facility] [address] [place], [place] [address] Davian Unger M.D. [id number] Calcium [Mass/Vol] 9.2 mg/dL Normal 8.4-10.2 [facility] Comment on above: Order Comment: [facility] has implemented the eGFR calculation approach that does not have a coefficient for race that conforms to the NKF-ASN Task Force Recommendations. Performed By: #### L [id number] #### [facility] [address] [place], [place] [address] Davian Unger M.D. [id number] Chloride [Moles/Vol] 103 mmol/L Normal 98-108 [facility] Comment on above: Order Comment: [facility] has implemented the eGFR calculation approach that does not have a coefficient for race that conforms to the NKF-ASN Task Force Recommendations. Performed By: #### L [id number] #### [facility] [address], [place] [address] Davian Unger M.D. [id number] Creatinine [Mass/Vol] 0.99 mg/dL Normal 0.60-1.10 [facility] Comment on above: Order Comment: [facility] has implemented the eGFR calculation approach that does not have a coefficient for race that conforms to the NKF-ASN Task Force Recommendations. Performed By: #### L [id number] #### [facility] [address] [place] [address] Davian Unger M.D. [id number] EGFR 60 mL/min/1.73 m2 Normal >=60 [facility] Comment on above: Order Comment: [facility] has implemented the eGFR calculation approach that does not have a coefficient for race that conforms to the NKF-ASN Task Force Recommendations. Result Comment: Hayde mated GFR was calculated using the 2020 CKD-EPI creatinine equation. Performed By: #### L [id number] #### [facility] [address] [place] [address] Davian Unger M.D. [id number] Glucose [Mass/Vol] 109 mg/dL High 65-99 [facility] Comment on above: Order Comment: [facility] has implemented the eGFR calculation approach that does not have a coefficient for race that conforms to the NKF-ASN Task Force Recommendations. Performed By: #### L [id number] #### [facility] [address] [place], [place] [address] Davian Unger M.D. [id number] HCO3 (Bld) [Moles/Vol] 27 mmol/L Normal 21-32 [facility] Comment on above: Order Comment: [facility] has implemented the eGFR calculation approach that does not have a coefficient for race that conforms to the NKF-ASN Task Force Recommendations. Performed By: #### L [id number] #### [facility] [address] [place], [place] [address] Davian Unger M.D. [id number] Potassium [Moles/Vol] 3.8 mmol/L Normal 3.5-5.1 [facility] Comment on above: Order Comment: [facility] has implemented the eGFR calculation approach that does not have a coefficient for race that conforms to the NKF-ASN Task Force Recommendations. Performed By: #### L [id number] #### [facility] [address] [place] [id number] Davian Unger M.D. [id number] Sodium [Moles/Vol] 139 mmol/L Normal 135-145 [facility] Comment on above: Order Comment: [facility] has implemented the eGFR calculation approach that does not have a coefficient for race that conforms to the NKF-ASN Task Force Recommendations. Performed By: #### L [id number] #### [facility] [address] [place] [address] Davian Unger M.D. [id number] Urea nitrogen [Mass/Vol] 20 mg/dL Normal 8-25 [facility] Comment on above: Order Comment: [facility] has implemented the eGFR calculation approach that does not have a coefficient for race that conforms to the NKF-ASN Task Force Recommendations. Performed By: #### L [id number] #### [facility] [address] [place] [address] Davian Unger M.D. [id number] Urea nitrogen/Creatinine [Mass ratio] 20.2 mg/mg High 10.0-20.0 [facility] Comment on above: Order Comment: [facility] has implemented the eGFR calculation approach that does not have a coefficient for race that conforms to the NKF-ASN Task Force Recommendations. Performed By: #### L [id number] #### [facility] [address] [place] [address] Davian Unger M.D. [id number] Basic metabolic 2000 panelon 10-20-2024 Anion gap [Moles/Vol] 13 mmol/L 10 - 20 mmol/L [facility] Calcium [Mass/Vol] 9.2 mg/dL 8.4 - 10. 2 mg/dL [facility] Chloride [Moles/Vol] 103 mmol/L 98 - 108 mmol/L [facility] Creatinine [Mass/Vol] 0.99 mg/dL 0.60 - 1.10 mg/dL [facility] GFR/1.73 sq M.predicted CKD-EPI (S/P/Bld) [Vol rate/Area] 60 - PINF [facility] Comment on above: Estimated GFR was ca lculated using the 2020 CKD-EPI creatinine equation. Glucose [Mass/Vol] 109 mg/dL High 65 - 99 mg/dL [facility] [place] [facility] HCO3 [Moles/Vol] 27 mmol/L 21 - 32 mmol/L [facility] Interpretation and review of laboratory results Abnormal [facility] Potassium [Moles/Vol] 3.8 mmol/L 3.5 - 5.1 mmol/L [facility] Sodium [Moles/Vol] 139 mmol/L 135 - 145 mmol/L [facility] Urea nitrogen [Mass/Vol] 20 mg/dL 8 - 25 mg/dL [facility] Urea nitrogen/Creatinine [Mass ratio] 20.2 mg/mg High 10.0 - 20.0 [facility] has implemented the eGFR calculation approach that does not have a coefficient for race that conforms to the NKF-ASN Task Force Recommendations. [facility] CBCon 10-20-2024 AUTO NRBC 0.0 % Normal [facility] Comment on above: Performed By: #### L [id number] #### [facility] [address] [place] [address] Davian Unger M.D. [id number] AUTO NRBC ABS COUNT 0.00 K/mcL Normal 0.00-0.00 [facility] Comment on above: Performed By: #### L [id number] #### [facility] [address] [place] [address] Davian Unger M.D. [id number] Erythrocyte distribution width (RBC) [Ratio] 14.2 % Normal 11.6-14.8 [facility] Comment on above: Performed By: #### L [id number] #### [facility] [address] [place] [address] Davian Unger M.D. [id number] Hematocrit (Bld) [Volume fraction] 41.0 % Normal 36.0-46.0 [facility] Comment on above: Performed By: #### L [id number] #### LAB [address] [place] [address] Davian Unger M.D. [id number] Hemoglobin (Bld) [Mass/Vol] 13.7 g/dL Normal 12.0-16.0 [facility] Comment on above: Performed By: #### L [id number] #### LAB [address] [place] [address] Davian Unger M.D. [id number] MCH (RBC) [Entitic mass] 30.5 pg Normal 26.0-34.0 [facility] Comment on above: Performed By: #### L [id number] #### LAB [address] [place] [address] Davian Unger M.D. [id number] MCV (RBC) [Entitic vol] 91.3 fL Normal 80.0-100.0 [facility] Comment on above: Performed By: #### L [id number] #### LAB [address] [place] [address] Davian Unger M.D. [id number] MEAN CORPUSCULAR HEMOGLOBIN CONC 33.4 g/dL Normal 31.0-37.0 [facility] Comment on above: Performed By: #### L [id number] #### LAB [address] [place] [address] Davian Unger M.D. [id number] Platelet mean volume (Bld) [Entitic vol] 10.9 fL Normal 9.4-12.4 [facility] Comment on above: Performed By: #### L [id number] #### LAB [address] [place] [address] Davian Unger M.D. [id number] Platelets (Bld) [#/Vol] 188 10*3/uL Normal 150-400 [facility] Comment on above: Performed By: #### L [id number] #### [facility] [address], [place] [address] Davian Unger M.D. [id number] RBC (Bld) [#/Vol] 4.49 10*6/uL Normal 4.00-5.20 [facility] Comment on above: Performed By: #### L [id number] #### LAB [address] [place] [address] Davian Unger M.D. [id number] WBC (Bld) [#/Vol] 5.34 10*3/uL Normal 4.50-11.00 [facility] Comment on above: Performed By: #### L [id number] #### LAB [address] [place] [address] Davian Unger M.D. [id number] CBC panel Auto (Bld)on 10-20 Erythrocyte distribution width (RBC) [Entitic vol] 14.2 % 11.6 - 14.8 % [facility] Hematocrit (Bld) [Volume fraction] 41 % 36.0 - 46.0 % [facility] Hemoglobin (Bld) [Mass/Vol] 13.7 g/dL 12.0 - 16.0 g/dL [facility] MCH (RBC) [Entitic mass] 30.5 pg 26.0 - 34.0 pg [facility] MCHC (RBC) [Mass/Vol] 33.4 g/dL 31.0 - 37.0 g/dL [facility] MCV (RBC) [Entitic vol] 91.3 fL 80.0 - 100.0 fL [facility] Nucleated RBC (Bld) [#/Vol] 0 10*3/uL [facility] Nucleated RBC/100 WBC (Bld) [Ratio] 0 % [facility] Platelet mean volume (Bld) [Entitic vol] 10.9 fL 9.4 - 12.4 fL [facility] Platelets (Bld) [#/Vol] 188 10*3/uL [facility] RBC (Bld) [#/Vol] 4.49 10*6/uL [facility] WBC (Bld) [#/Vol] 5.34 10*3/uL [facility] CCTA Heart (Kai Whak[place]au jane pino)on 12-18-2024 1. Mild, nonobstructive coronary disease. 2. The proximal LAD have a small calcific plaque with less than 25% stenosis. The rest of the coronary arteries are free from significant disease. 3. Grossly normal LV size and RV size. 4. Mild coronary artery calcification. Calcium score of 1 which is at the 29th percentile for age and race and gender matched population. 5. Please see separate radiology report for noncardiac findings [employer] Coronary Computed Angiography Report Patient Name: Lola Drew Age: 74 y.o. Requesting Physician: Interpreting Kai [place]: Polly Santillan MD Primary Care Physician: Sara Alvarez Clinical Indication: hx of PE, sob and pre op Gender: female Race/Ethnicity: White Procedure: Computed tomographic angiography with contrast, including 3D image post-processing (including evaluation of cardiac structures and morphology, assessment of cardiac function and evaluation of venous structures, if performed) BMI: 40 kg/msq Acquisition mode: Prospective, ECG triggered Complications: None Image Quality: Good, No significant artifacts. Scanner: [employer] 205 mGy 110 Isovue-370. 0.8mg SL nitroglycerin administered prior to scan. Radiation dose reduction was achieved by using automated exposure control and or adjustments of mA and/or kV according to patient size and/or use of iterative reconstruction techniques. Coronary Calcium / Agatston scoring: LM: 0 RCA: 0 LAD: 1 LCX: 0 Total: 1 Total calcium score is 1 which is at the 29th percentile for the patient age race and gender according to the ODOM population study Coronary Angiography: Left Main: The left main is a large vessel with a normal take off from the left coronary cusp. The left main coronary artery is free from atherosclerotic disease Left anterior descending artery: The LAD is large artery gives rise to 1 diagonal branch. The proximal LAD has a small calcific plaque with less than 25% stenosis. The rest of LAD is free of significant disease Left circumflex artery: The LCx is codominant and patent with no evidence of plaque or stenosis. The LCx gives off 2 obtuse marginal branches. Right coronary artery: The RCA is codominant with no evidence of plaque or stenosis. The RCA terminates as a PDA and right posteriorlateral branch without evidence of plaque or stenosis. Cardiac Morphology: Left atrium: Left atrial size is Normal ZENOBIA is free from any filling defect. Left Ventricle: The ventricular cavity size is within normal limits. There is no abnormal filling defects. Right ventricle: appear normal in size. Pulmonary Veins: Normal pulmonary venous drainage. Pericardium: Normal thickness with no significant effusion or calcification present. Cardiac valves: There is no thickening or calcification in the aortic and mitral valves. Aorta: Normal caliber of the portion of the thoracic aorta imaged. mild calcification of the descending thoracic aorta [employer] Radiology Study observation (narrative) [facility] CCTA Heart (Kai [place] jane pino)Ordered By: Polly Santillan on 10-20-2024 [facility] Work Phone: CT CCTA HEART (CHEF MANAGER READ)on 10-20-2024 CT CCTA HEART (CHEF MANAGER READ) Coronary Computed Angiography Report Patient Name: Lola Drew Age: 74 y.o. Requesting Physician: Interpreting Kai [place]: Polly Santillan MD Primary Care Physician: Sara Alvarez Clinical Indication: hx of PE, sob and pre op Gender: female Race/Ethnicity: White Procedure: Computed tomographic angiography with contrast, including 3D image post-processing (including evaluation of cardiac structures and morphology, assessment of cardiac function and evaluation of venous structures, if performed) BMI: 40 kg/msq Acquisition mode: Prospective, ECG triggered Complications: None Image Quality: Good, No significant artifacts. Scanner: [employer] 205 mGy 110 Isovue-370. 0.8mg SL nitroglycerin administered prior to scan. Radiation dose reduction was achieved by using automated exposure control and or adjustments of mA and/or kV according to patient size and/or use of iterative reconstruction techniques. Coronary Calcium / Agatston scoring: LM: 0 RCA: 0 LAD: 1 LCX: 0 Total: 1 Total calcium score is 1 which is at the 29th percentile for the patient age race and gender according to the ODOM population study Coronary Angiography: Left Main: The left main is a large vessel with a normal take off from the left coronary cusp. The left main coronary artery is free from atherosclerotic disease Left anterior descending artery: The LAD is large artery gives rise to 1 diagonal branch. The proximal LAD has a small calcific plaque with less than 25% stenosis. The rest of LAD is free of significant disease Left circumflex artery: The LCx is codominant and patent with no evidence of plaque or stenosis. The LCx gives off 2 obtuse marginal branches. Right coronary artery: The RCA is codominant with no evidence of plaque or stenosis. The RCA terminates as a PDA and right posteriorlateral branch without evidence of plaque or stenosis. Cardiac Morphology: Left atrium: Left atrial size is Normal ZENOBIA is free from any filling defect. Left Ventricle: The ventricular cavity size is within normal limits. There is no abnormal filling defects. Right ventricle: appear normal in size. Pulmonary Veins: Normal pulmonary venous drainage. Pericardium: Normal thickness with no significant effusion or calcification present. Cardiac valves: There is no thickening or calcification in the aortic and mitral valves. Aorta: Normal caliber of the portion of the thoracic aorta imaged. mild calcification of the descending thoracic aorta IMPRESSION: 1. Mild, nonobstructive coronary disease. 2. The proximal LAD have a small calcific plaque with less than 25% stenosis. The rest of the coronary arteries are free from significant disease. 3. Grossly normal LV size and RV size. 4. Mild coronary artery calcification. Calcium score of 1 which is at the 29th percentile for age and race and gender matched population. 5. Please see separate radiology report for noncardiac findings Dictated by: POLLY SANTILLAN on FriOct 20, 2024 12:01:47 PM EST Transcribed by: POLLY SANTILLAN on FriOct 20, 2024 12:01:47 PM EST Finalized by: POLLY SANTILLAN on FriOct 20, 2024 12:01:47 PM EST Normal [facility] Comment on above: Order Comment: NPO s tatus not required for this exam however caffeine should be minimized prior to exam. CT CCTA HEART WITH AND WITHO UT CONTRASTon 10-20-2024 CT CCTA HEART WITH AND WITHOUT CONTRAST EXAMINATION: CT CCTA HEART WITH AND WITHOUT CONTRAST HISTORY: ORDERING SYSTEM PROVIDED HISTORY: Chest pain/anginal equiv, low CAD risk, not treadmill candidate, TECHNOLOGIST PROVIDED HISTORY: Illness/Other Reason for exam: Chest pain, supplemental read Encounter Type: Subsequent/Follow-up Additional signs and symptoms: . ORDERING SYSTEM PROVIDED DIAGNOSIS CODES: R07.89 Chest pain, atypical COMPARISON: None. TECHNIQUE: CT imaging from the base of the heart to the apex before and after the administration of intravenous contrast. CT calcium score and CTA coronary protocol were utilized. Kai Whakaruruhau will interpret the CT calcium score and CTA coronary portion of the examination. Radiologist will interpret the extracardiac portion of the examination. Dose reduction techniques were achieved by using automated exposure control and/or adjustment of mA and/or kV according to patient size and/or use of iterative reconstruction technique. CONTRAST: IOPAMIDOL 370 MG IODINE/ML (76%) INTRAVENOUS SOLUTION - 110 mL, FINDINGS: MEDIASTINUM: Heart is normal in size without pericardial effusion. The visualized thoracic aorta is normal in caliber without dissection. Normal caliber main pulmonary artery trunk. Suboptimal opacification of the pulmonary arteries. Grossly, no central or large pulmonary emboli. PLEURAL CAVITY: No pleural effusion. LUNGS: Small amount of mucosal debris within the right mainstem bronchus and left lower lobe segmental bronchi. Mild subpleural reticulation scattered throughout the lungs, suggestive of scarring. Multiple small nodules scattered throughout the lower lobes measuring up to 4 mm. VISUALIZED UPPER ABDOMEN: No acute findings. Hepatic steatosis. Small sliding-type hiatal hernia. BONES: Moderate multilevel thoracic spondylosis. IMPRESSION: Multiple small pulmonary nodules of the lower lobes measuring up to 4 mm. Similar findings seen on 07/29/2024 CT low-dose lung screening. Recommend continued annual low dose lung screening examination. Mild mucosal debris scattered throughout the bronchi. Hepatic steatosis. Small hiatal hernia. ST/tde Workstation ID: [id number] Dictated by: ANGELO CHRISTOPHER on FriOct 20, 2024 12:53:06 PM EST Transcribed by: ROLANDO SEHFFIELD on FriOct 20, 2024 1:42:03 PM EST Finalized by: ANGELO CHRISTOPHER on FriOct 20, 2024 10:48:57 PM EST Normal [facility] Comment on above: Order Comment: Thera peutic range for APTT's is 68 - 104 seconds ECHOCARDIOGRAM COMPLETE W CO NTRASTon 10-20-2024 ECHOCARDIOGRAM COMPLETE W CONTRAST Patient Info Name: LOLA DREW Age: 74 years : 1950 Gender: Female Ht: 163 cm Wt: 107 kg BSA: 2.25 m2 HR: 52 bpm BP: 125 / 71 mmHg Heart Rhythm: Bradycardia Technical Quality: Fair Exam Date: 10/20/2024 7:43 AM Patient Status: Inpatient Washer Off: Kei Salgado RCDS Exam Type: ECHOCARDIOGRAM COMPLETE W CONTRAST Study Info Indications - Chest pain R07.9 - Chest pain, unspecified Referring Physician: [id number], ROYAL; [id number] BMI: 40.34 kg/m2 Summary 1. Limited image quality study, Definity was used to enhance endocardial border definition.. 2. Normal LV size and wall thickness. Normal LV systolic function. No obvious regional wall motion abnormalities. LV ejection fraction is 65 to 70%. Diastolic function is probably normal. 3. Right ventricular size and systolic function are normal. 4. The structure of the valves are not well-seen, however no significant valvular abnormalities by Doppler signals. 5. There is no pulmonary hypertension, estimated right ventricle systolic pressure is 24 mmHg. RA pressure is 3 mmHg which is normal. 6. Compared to echo from July,, the LV function is unchanged. The RVSP is lower on today's study. History/Risk Factors Dyslipidemia: Yes Obesity: Yes COPD: On Meds Tobacco Use: Former Family History: Coronary Artery Disease Procedure(s): Complete two-dimensional, color flow and Doppler transthoracic echocardiogram is performed with contrast. Definity explained to patient. Patient verbalizes understanding and agrees to proceed. Definity 1.3ml/8.7ml normal sterile saline 3 ml total given IV over 30-60 seconds. Left Ventricle Left ventricular chamber dimension is normal. Left ventricular systolic function is normal with an ejection fraction 65 to 70%. Normal left ventricular mass. Left ventricular segmental wall motion is normal. There is probablely normal diastolic function. Right Ventricle Right ventricular size and systolic function are normal. Left Atria Left atrial chamber is normal with a left atrial volume index of 22 ml/m2 by BP MOD. Right Atria Right atrial chamber dimension is normal. Aortic Valve The aortic valve is trileaflet. There is no aortic valve sclerosis. There is no aortic valve stenosis. There is no aortic valve regurgitation. Pulmonic Valve The pulmonic valve is normal. There is no pulmonic valve stenosis. There is trace pulmonic regurgitation. Mitral Valve The mitral valve has normal leaflets. There is no mitral valve stenosis. There is no mitral valve regurgitation. Tricuspid Valve The tricuspid valve leaflets are normal. There is no significant tricuspid valve stenosis. There is trace tricuspid valve regurgitation. There is no pulmonary hypertension, estimated right ventricle systolic pressure is 24 mmHg. RA pressure is 3 mmHg which is normal. Pericardium/Pleural The pericardium appears normal. There is no pericardial effusion. Inferior Vena Cava Normal inferior vena cava with >50% collapse upon inspiration consistent with normal right atrial pressure. Estimated right atrial pressure is 3 mmHg. Aorta The aortic measurements are indexed to age and body surface area. The aortic root is normal measuring 3.5 cm with an index of 1.6 cm/m2. Left Ventricular Outflow Tract ---- Name Value Normal ---- LVOT 2D ---- LVOT Diameter 1.7 cm LVOT Doppler ---- LVOT Peak Velocity 1.3 m/s LVOT Peak Gradient 7 mmHg LVOT Mean Gradient 3 mmHg LVOT VTI 31 cm LVOT VTI/AV VTI Ratio 1.3 LVOT Stroke Volume 70 ml LVOT Stroke Index 31.27 ml/m2 Pulmonic Valve ---- Name Value Normal ---- RVOT Doppler ---- RVOT Peak Velocity 83 cm/s RVOT Peak Gradient 1 mmHg RVOT Mean Gradient 1 mmHg RVOT VTI 24 cm Mitral Valve ---- Name Value Normal ---- MV Doppler ---- MV Peak Velocity 0.73 m/s MV Peak Gradient 3 mmHg MV Mean Gradient 1 mmHg MV VTI 27 cm MV Decel Person 118 cm/s2 MV PHT 62 ms MV Area (PHT) 3.5 cm2 4.0-5.0 MV Area (Cont Eq VTI) 2.6 cm2 MV Area Index (Cont Eq VTI) 1.15 cm2/m2 MV DVI 0.87 MV Diastolic Function ---- MV E Peak Velocity 0.59 m/s MV (more content not included)... Normal [facility] EKG 12-leadon 10-20-2024 Atrial Rate 57 BPM [facility] P Lavina 59 degrees [facility] P-R Interval 154 ms [facility] Q-T Interval 446 ms [facility] QRS Duration 94 ms [facility] QTC Calculation (Bezet) 434 ms [facility] R Lavina 15 degrees [facility] T Lavina 60 degrees [facility] Ventricular Rate 57 BPM [facility] Sinus bradycardia Otherwise normal ECG ECG Cart Interpretation see physician note for interpretation. Confirmed by Princess Nathan ([id number]) on 10/20/2024 10:32:56 AM [facility] Echocardiogram complete w co ntraston 10-20-2024 Aortic valve area 2.94031 cm [facility] AV mean gradient 3 mmHg [facility] AV peak gradient 6.9696 mmHg [facility] Patient Info Name: LOLA DREW Age: 74 years : 1950 Gender: Female Ht: 163 cm Wt: 107 kg BSA: 2.25 m2 HR: 52 bpm BP: 125 / 71 mmHg Heart Rhythm: Bradycardia Technical Quality: Fair Exam Date: 10/20/2024 7:43 AM Patient Status: Inpatient Washer Off: Kei Salgado RCDS Exam Type: ECHOCARDIOGRAM COMPLETE W CONTRAST Study Info Indications - Chest pain R07.9 - Chest pain, unspecified Referring Physician: [id number] Saldivar; [id number] BMI: 40.34 kg/m2 Summary 1. Limited image quality study, Definity was used to enhance endocardial border definition.. 2. Normal LV size and wall thickness. Normal LV systolic function. No obvious regional wall motion abnormalities. LV ejection fraction is 65 to 70%. Diastolic function is probably normal. 3. Right ventricular size and systolic function are normal. 4. The structure of the valves are not well-seen, however no significant valvular abnormalities by Doppler signals. 5. There is no pulmonary hypertension, estimated right ventricle systolic pressure is 24 mmHg. RA pressure is 3 mmHg which is normal. 6. Compared to echo from July,, the LV function is unchanged. The RVSP is lower on today's study. History/Risk Factors Dyslipidemia: Yes Obesity: Yes COPD: On Meds Tobacco Use: Former Family History: Coronary Artery Disease Procedure(s): Complete two-dimensional, color flow and Doppler transthoracic echocardiogram is performed with contrast. Definity explained to patient. Patient verbalizes understanding and agrees to proceed. Definity 1.3ml/8.7ml normal sterile saline 3 ml total given IV over 30-60 seconds. Left Ventricle Left ventricular chamber dimension is normal. Left ventricular systolic function is normal with an ejection fraction 65 to 70%. Normal left ventricular mass. Left ventricular segmental wall motion is normal. There is probablely normal diastolic function. Right Ventricle Right ventricular size and systolic function are normal. Left Atria Left atrial chamber is normal with a left atrial volume index of 22 ml/m2 by BP MOD. Right Atria Right atrial chamber dimension is normal. Aortic Valve The aortic valve is trileaflet. There is no aortic valve sclerosis. There is no aortic valve stenosis. There is no aortic valve regurgitation. Pulmonic Valve The pulmonic valve is normal. There is no pulmonic valve stenosis. There is trace pulmonic regurgitation. Mitral Valve The mitral valve has normal leaflets. There is no mitral valve stenosis. There is no mitral valve regurgitation. Tricuspid Valve The tricuspid valve leaflets are normal. There is no significant tricuspid valve stenosis. There is trace tricuspid valve regurgitation. There is no pulmonary hypertension, estimated right ventricle systolic pressure is 24 mmHg. RA pressure is 3 mmHg which is normal. Pericardium/Pleural The pericardium appears normal. There is no pericardial effusion. Inferior Vena Cava Normal inferior vena cava with >50% collapse upon inspiration consistent with normal right atrial pressure. Estimated right atrial pressure is 3 mmHg. Aorta The aortic measurements are indexed to age and body surface area. The aortic root is normal measuring 3.5 cm with an index of 1.6 cm/m2. Left Ventricular Outflow Tract ---- Name Value Normal ---- LVOT 2D ---- LVOT Diameter 1.7 cm LVOT Doppler ---- LVOT Peak Velocity 1.3 m/s LVOT Peak Gradient 7 mmHg LVOT Mean Gradient 3 mmHg LVOT VTI 31 cm LVOT VTI/AV VTI Ratio 1.3 LVOT Stroke Volume 70 ml LVOT Stroke Index 31.27 ml/m2 Pulmonic Valve ---- Name Value Normal ---- RVOT Doppler ---- RVOT Peak Velocity 83 cm/s RVOT Peak Gradient 1 mmHg RVOT Mean Gradient 1 mmHg RVOT VTI 24 cm Mitral Valve (more content not included)... FUJI SYNAPSE CV Polly Santillan MD - 10/20/2024 Patient Info Name: LOLA DREW Age: 74 years : 1950 Gender: Female Ht: 163 cm Wt: 107 kg BSA: 2.25 m2 HR: 52 bpm BP: 125 / 71 mmHg Heart Rhythm: Bradycardia Technical Quality: Fair Exam Date: 10/20/2024 7:43 AM Patient Status: Inpatient Washer Off: Kei Salgado RCDS Exam Type: ECHOCARDIOGRAM COMPLETE W CONTRAST Study Info Indications - Chest pain R07.9 - Chest pain, unspecified Referring Physician: [id number] Saldivar; [id number] BMI: 40.34 kg/m2 Summary 1. Limited image quality study, Definity was used to enhance endocardial border definition.. 2. Normal LV size and wall thickness. Normal LV systolic function. No obvious regional wall motion abnormalities. LV ejection fraction is 65 to 70%. Diastolic function is probably normal. 3. Right ventricular size and systolic function are normal. 4. The structure of the valves are not well-seen, however no significant valvular abnormalities by Doppler signals. 5. There is no pulmonary hypertension, estimated right ventricle systolic pressure is 24 mmHg. RA pressure is 3 mmHg which is normal. 6. Compared to echo from July,, the LV function is unchanged. The RVSP is lower on today's study. History/Risk Factors Dyslipidemia: Yes Obesity: Yes COPD: On Meds Tobacco Use: Former Family History: Coronary Artery Disease Procedure(s): Complete two-dimensional, color flow and Doppler transthoracic echocardiogram is performed with contrast. Definity explained to patient. Patient verbalizes understanding and agrees to proceed. Definity 1.3ml/8.7ml normal sterile saline 3 ml total given IV over 30-60 seconds. Left Ventricle Left ventricular chamber dimension is normal. Left ventricular systolic function is normal with an ejection fraction 65 to 70%. Normal left ventricular mass. Left ventricular segmental wall motion is normal. There is probablely normal diastolic function. Right Ventricle Right ventricular size and systolic function are normal. Left Atria Left atrial chamber is normal with a left atrial volume index of 22 ml/m2 by BP MOD. Right Atria Right atrial chamber dimension is normal. Aortic Valve The aortic valve is trileaflet. There is no aortic valve sclerosis. There is no aortic valve stenosis. There is no aortic valve regurgitation. Pulmonic Valve The pulmonic valve is normal. There is no pulmonic valve stenosis. There is trace pulmonic regurgitation. Mitral Valve The mitral valve has normal leaflets. There is no mitral valve stenosis. There is no mitral valve regurgitation. Tricuspid Valve The tricuspid valve leaflets are normal. There is no significant tricuspid valve stenosis. There is trace tricuspid valve regurgitation. There is no pulmonary hypertension, estimated right ventricle systolic pressure is 24 mmHg. RA pressure is 3 mmHg which is normal. Pericardium/Pleural The pericardium appears normal. There is no pericardial effusion. Inferior Vena Cava Normal inferior vena cava with >50% collapse upon inspiration consistent with normal right atrial pressure. Estimated right atrial pressure is 3 mmHg. Aorta The aortic measurements are indexed to age and body surface area. The aortic root is normal measuring 3.5 cm with an index of 1.6 cm/m2. Left Ventricular Outflow Tract ---- Name Value Normal ---- LVOT 2D ---- LVOT Diameter 1.7 cm LVOT Doppler ---- LVOT Peak Velocity 1.3 m/s LVOT Peak Gradient 7 mmHg LVOT Mean Gradient 3 mmHg LVOT VTI 31 cm LVOT VTI/AV VTI Ratio 1.3 LVOT Stroke Volume 70 ml LVOT Stroke Index 31.27 ml/m2 Pulmonic Valve ---- Name Value Normal ---- RVOT Doppler ---- RVOT Peak Velocity 83 cm/s RVOT Peak Gradient 1 mmHg RVOT Mean Gradient 1 mmHg RVOT VTI 24 cm Mitral Valve ---- Name Value Normal ---- MV Doppler ---- MV Peak Velocity 0.73 m/s MV Peak Gradient 3 mmHg MV Mean Gradient 1 mmHg MV VTI 27 cm MV Decel Person 118 cm/s2 MV PHT 62 ms MV Area (PHT) 3.5 cm2 4.0-5.0 MV Area (Cont Eq VTI) 2.6 cm2 MV Area Index (Cont Eq VTI) 1.15 cm2/m2 MV DVI 0.87 MV Diastoli (more content not included)... [facility] BASIC METABOLIC PANELon 12- Anion gap [Moles/Vol] 16 mmol/L Normal 10-20 [facility] Comment on above: Order Comment: [facility] has implemented the eGFR calculation approach that does not have a coefficient for race that conforms to the NKF-ASN Task Force Recommendations. Performed By: #### L [id number] #### [facility] [address] [address] Davian Unger M.D. [id number] Calcium [Mass/Vol] 9.5 mg/dL Normal 8.4-10.2 [facility] Comment on above: Order Comment: [facility] has implemented the eGFR calculation approach that does not have a coefficient for race that conforms to the NKF-ASN Task Force Recommendations. Performed By: #### L [id number] #### [facility] [address] [address] Davian Unger M.D. [id number] Chloride [Moles/Vol] 99 mmol/L Normal 98-108 [facility] Comment on above: Order Comment: [facility] has implemented the eGFR calculation approach that does not have a coefficient for race that conforms to the NKF-ASN Task Force Recommendations. Performed By: #### L [id number] #### [facility] [address], [place] [address] Davian Unger M.D. [id number] Creatinine [Mass/Vol] 1.06 mg/dL Normal 0.60-1.10 [facility] Comment on above: Order Comment: [facility] has implemented the eGFR calculation approach that does not have a coefficient for race that conforms to the NKF-ASN Task Force Recommendations. Performed By: #### L [id number] #### [facility] [address], [place] [address] Davian Unger M.D. [id number] EGFR 55 mL/min/1.73 m2 Low >=60 [facility] Comment on above: Order Comment: [facility] has implemented the eGFR calculation approach that does not have a coefficient for race that conforms to the NKF-ASN Task Force Recommendations. Result Comment: Hayde mated GFR was calculated using the 2020 CKD-EPI creatinine equation. Performed By: #### L [id number] #### [facility] [address], [place] [address] Davian Unger M.D. [id number] Glucose [Mass/Vol] 107 mg/dL High 65-99 [facility] Comment on above: Order Comment: [facility] has implemented the eGFR calculation approach that does not have a coefficient for race that conforms to the NKF-ASN Task Force Recommendations. Performed By: #### L [id number] #### [facility] [address] [address] Davian Unger M.D. [id number] HCO3 (Bld) [Moles/Vol] 27 mmol/L Normal 21-32 [facility] Comment on above: Order Comment: [facility] has implemented the eGFR calculation approach that does not have a coefficient for race that conforms to the NKF-ASN Task Force Recommendations. Performed By: #### L [id number] #### [facility] [address], [place] [address] Davian Unger M.D. [id number] Potassium [Moles/Vol] 3.6 mmol/L Normal 3.5-5.1 [facility] Comment on above: Order Comment: [facility] has implemented the eGFR calculation approach that does not have a coefficient for race that conforms to the NKF-ASN Task Force Recommendations. Performed By: #### L [id number] #### [facility] [address], [place] [address] Davian Unger M.D. [id number] Sodium [Moles/Vol] 138 mmol/L Normal 135-145 [facility] Comment on above: Order Comment: [facility] has implemented the eGFR calculation approach that does not have a coefficient for race that conforms to the NKF-ASN Task Force Recommendations. Performed By: #### L [id number] #### [facility] [address] [address] Davian Unger M.D. [id number] Urea nitrogen [Mass/Vol] 19 mg/dL Normal 8-25 [facility] Comment on above: Order Comment: [facility] has implemented the eGFR calculation approach that does not have a coefficient for race that conforms to the NKF-ASN Task Force Recommendations. Performed By: #### L [id number] #### LAB [address] [address] Davian Unger M.D. [id number] Urea nitrogen/Creatinine [Mass ratio] 17.9 mg/mg Normal 10.0-20.0 [facility] Comment on above: Order Comment: [facility] has implemented the eGFR calculation approach that does not have a coefficient for race that conforms to the NKF-ASN Task Force Recommendations. Performed By: #### L [id number] #### LAB [address], [place] [address] Davian Unger M.D. [id number] Basic metabolic 2000 panelon 10-19-2024 Anion gap [Moles/Vol] 16 mmol/L 10 - 20 mmol/L [facility] Calcium [Mass/Vol] 9.5 mg/dL 8.4 - 10. 2 mg/dL [facility] Chloride [Moles/Vol] 99 mmol/L 98 - 108 mmol/L [facility] Creatinine [Mass/Vol] 1.06 mg/dL 0.60 - 1.10 mg/dL [facility] GFR/1.73 sq M.predicted CKD-EPI (S/P/Bld) [Vol rate/Area] 55 Low - PINF [facility] Comment on above: Estimated GFR was ca lculated using the 2020 CKD-EPI creatinine equation. Glucose [Mass/Vol] 107 mg/dL High 65 - 99 mg/dL [facility] [place] [facility] HCO3 [Moles/Vol] 27 mmol/L 21 - 32 mmol/L [facility] Interpretation and review of laboratory results Abnormal [facility] Potassium [Moles/Vol] 3.6 mmol/L 3.5 - 5.1 mmol/L [facility] Sodium [Moles/Vol] 138 mmol/L 135 - 145 mmol/L [facility] Urea nitrogen [Mass/Vol] 19 mg/dL 8 - 25 mg/dL [facility] Urea nitrogen/Creatinine [Mass ratio] 17.9 mg/mg 10.0 - 20.0 [facility] has implemented the eGFR calculation approach that does not have a coefficient for race that conforms to the NKF-ASN Task Force Recommendations. [facility] CBC Auto Differentialon 10-03 Basophils (Bld) [#/Vol] 0.07 10*3/uL [facility] Basophils/100 WBC (Bld) 1.2 % [facility] Eosinophils (Bld) [#/Vol] 0.22 10*3/uL [facility] Eosinophils/100 WBC (Bld) 3.8 % [facility] Erythrocyte distribution width (RBC) [Entitic vol] 14.2 % 11.6 - 14.8 % [facility] Hematocrit (Bld) [Volume fraction] 41.4 % 36.0 - 46.0 % [facility] Hemoglobin (Bld) [Mass/Vol] 13.9 g/dL 12.0 - 16.0 g/dL [facility] Immature granulocytes (Bld) [#/Vol] 0.01 10*3/uL [facility] Immature granulocytes/100 WBC (Bld) 0.2 % [facility] Comment on above: The IG parameter is the percentage of metamyelocytes, myelocytes and promyelocytes. An immature granulocyte count (IG) of 1% or more suggests the possibility of infection, an IG count of 3% is very likely related to an infection. Lymphocytes (Bld) [#/Vol] 1.71 10*3/uL [facility] Lymphocytes/100 WBC (Bld) 29.2 % [facility] MCH (RBC) [Entitic mass] 31 pg 26.0 - 34.0 pg [facility] MCHC (RBC) [Mass/Vol] 33.6 g/dL 31.0 - 37.0 g/dL [facility] MCV (RBC) [Entitic vol] 92.2 fL 80.0 - 100.0 fL [facility] Monocytes (Bld) [#/Vol] 0.5 10*3/uL [facility] Monocytes/100 WBC (Bld) 8.5 % [facility] Neutrophils (Bld) [#/Vol] 3.34 10*3/uL [facility] Neutrophils/100 WBC (Bld) 57.1 % [facility] Nucleated RBC (Bld) [#/Vol] 0 10*3/uL [facility] Nucleated RBC/100 WBC (Bld) [Ratio] 0 % [facility] Platelet mean volume (Bld) [Entitic vol] 10.9 fL 9.4 - 12.4 fL [facility] Platelets (Bld) [#/Vol] 202 10*3/uL [facility] RBC (Bld) [#/Vol] 4.49 10*6/uL [facility] (Bld[facility] [#/Vol] 5.85 10*3/uL [facility] CBC WITH AUTO DIFFERENTIALon 10-19-2024 AUTO NRBC 0.0 % [facility] Comment on above: Performed By: #### L [id number] #### LAB [address] [address] Davian Unger M.D. [id number] AUTO NRBC ABS COUNT 0.00 K/mcL Normal 0.00-0.00 [facility] Comment on above: Performed By: #### L [id number] #### LAB [address] [address] Davian Unger M.D. [id number] BASOPHILS ABSOLUTE COUNT 0.07 K/mcL Normal 0.00-0.30 [facility] Comment on above: Performed By: #### L [id number] #### [facility] [address] [address] Davian Unger M.D. [id number] Basophils/100 WBC (Bld) 1.2 % [facility] Comment on above: Performed By: #### L [id number] #### LAB [address] [address] Davian Unger M.D. [id number] Eosinophils (Bld) [#/Vol] 0.22 10*3/uL Normal 0.00-0.50 [facility] Comment on above: Performed By: #### L [id number] #### LAB [address] [address] Davian Unger M.D. [id number] Eosinophils/100 WBC (Bld) 3.8 % Normal [facility] Comment on above: Performed By: #### L [id number] #### [facility] [address] [address] Davian Unger M.D. [id number] Erythrocyte distribution width (RBC) [Ratio] 14.2 % Normal 11.6-14.8 [facility] Comment on above: Performed By: #### L [id number] #### LAB [address] [address] Davian Unger M.D. [id number] Hematocrit (Bld) [Volume fraction] 41.4 % Normal 36.0-46.0 [facility] Comment on above: Performed By: #### L [id number] #### LAB [address] [address] Davian Unger M.D. [id number] Hemoglobin (Bld) [Mass/Vol] 13.9 g/dL Normal 12.0-16.0 [facility] Comment on above: Performed By: #### L [id number] #### LAB [address] [address] Davian Unger M.D. [id number] IG ABSOLUTE 0.01 K/mcL Normal 0.00-0.30 [facility] Comment on above: Performed By: #### L [id number] #### LAB [address] [place] [address] Davian Unger M.D. [id number] IG PERCENT 0.20 % Normal [facility] Comment on above: Result Comment: The IG parameter is the percentage of metamyelocytes, myelocytes and promyelocytes. An immature granulocyte count (IG) of 1% or more suggests the possibility of infection, an IG count of 3% is very likely related to an infection. Performed By: #### L [id number] #### LAB [address] [address] Davian Unger M.D. [id number] Lymphocytes (Bld) [#/Vol] 1.71 10*3/uL Normal 0.90-4.00 [facility] Comment on above: Performed By: #### L [id number] #### MH LAB [address] [address] Davian Unger M.D. [id number] Lymphocytes/100 WBC (Bld) 29.2 % Normal [facility] Comment on above: Performed By: #### L [id number] #### MH LAB [address] [address] Davian Unger M.D. [id number] MCH (RBC) [Entitic mass] 31.0 pg Normal 26.0-34.0 [facility] Comment on above: Performed By: #### L [id number] #### MH LAB [address] [address] Davian Unger M.D. [id number] MCV (RBC) [Entitic vol] 92.2 fL Normal 80.0-100.0 [facility] Comment on above: Performed By: #### L [id number] #### MH LAB [address] [place] [address] Davian Unger M.D. [id number] MEAN CORPUSCULAR HEMOGLOBIN CONC 33.6 g/dL Normal 31.0-37.0 [facility] Comment on above: Performed By: #### L [id number] #### MH LAB [address] [address] Davian Unger M.D. [id number] Monocytes (Bld) [#/Vol] 0.50 10*3/uL Normal 0.30-0.90 [facility] Comment on above: Performed By: #### L [id number] #### MH LAB [address] [place] [address] Davian Unger M.D. [id number] Monocytes/100 WBC (Bld) 8.5 % Normal [facility] Comment on above: Performed By: #### L [id number] #### MH LAB [address] [address] Davian Unger M.D. [id number] NEUTROPHILS ABSOLUTE COUNT 3.34 K/mcL Normal 1.70-7.00 [facility] Comment on above: Performed By: #### L [id number] #### MH LAB [address] [address] Davian Unger M.D. [id number] Neutrophils/100 WBC (Bld) 57.1 % Normal [facility] Comment on above: Performed By: #### L [id number] #### MH LAB [address] [address] Davian Unger M.D. [id number] Platelet mean volume (Bld) [Entitic vol] 10.9 fL Normal 9.4-12.4 [facility] Comment on above: Performed By: #### L [id number] #### MH LAB [address] [address] Davian Unger M.D. [id number] Platelets (Bld) [#/Vol] 202 10*3/uL Normal 150-400 [facility] Comment on above: Performed By: #### L [id number] #### LAB [address] [address] Davian Unger M.D. [id number] RBC (Bld) [#/Vol] 4.49 10*6/uL Normal 4.00-5.20 [facility] Comment on above: Performed By: #### L [id number] #### MH LAB [address] [address] Davian Unger M.D. [id number] WBC (Bld) [#/Vol] 5.85 10*3/uL Normal 4.50-11.00 [facility] Comment on above: Performed By: #### L [id number] #### MH LAB [address] [address] Davian Unger M.D. [id number] D-DIMER, QUANTITATIVEon 10-03 D-DIMER QUANTITATIVE < Normal 0.27-0.49 [facility] Comment on above: Order Comment: A D-d natalie concentration of <0.5 micrograms per milliliter FEU is considered a low probability for pulmonary embolus (PE) and deep venous thrombosis (DVT). Results of this test should always be interpreted in conjunction with the patient's medical history,clinical presentation, and other findings. Clinical diagnosis should not be based on the results of the D-dimer alone. Performed By: #### L [id number] #### MH LAB [address] [place], [place] [address] Davian Unger M.D. [id number] D-Dimeron 10-19-2024 Fibrin D-dimer FEU (PPP) [Mass/Vol] [facility] Interpretation and review of laboratory results Normal [facility] A D-dimer concentration of <0.5 micrograms per milliliter FEU is considered a low probability for pulmonary embolus (PE) and deep venous thrombosis (DVT). Results of this test should always be interpreted in conjunction with the patient's medical history,clinical presentation, and other findings. Clinical diagnosis should not be based on the results of the D-dimer alone. [facility] ED Prov Noteon 10-19-2024 ED Prov Note ED PROVIDER NOTE [facility] MEDICAL OBSERVATION NAME: Lola Drew AGE: 74 y.o. : 1950 VISIT DATE: 10/19/2024 CSN: [id number] PCP: Sara Alvarez MD Chief Complaint Patient presents with Chest Pain Patient is a 74-year-old female history of gastroesophageal reflux disease, hypertension, dyslipidemia, COPD, recently diagnosed with pulmonary embolism currently on Eliquis brought to emergency department via ambulance for evaluation of intermittent substernal chest pain radiating to her left jaw. [facility] when she developed symptoms. She was subsequently transferred to emergency department for evaluation. No fever no cough no congestion no other complaints no other concerns. Past Medical History: Diagnosis Date Asthma Bronchitis Colitis COPD (chronic obstructive pulmonary disease) (HCC) Depression GERD (gastroesophageal reflux disease) Hypercholesterolemia Insomnia Obstructive sleep apnea Osteopenia Vitamin D deficiency Past Surgical History: Procedure Laterality Date APPENDECTOMY CT COLONOSCOPY 05/18/2019 CT COLONOSCOPY FINGER SURGERY Bilateral 11/03/2009 thumb FOOT SURGERY HYSTERECTOMY (CERVIX REMAINS) NASAL SEPTUM SURGERY 1989 possibly TONSILLECTOMY AND ADENOIDECTOMY Family History Problem Relation Age of Onset Other (unknown cancer) Mother Heart attack Father age 54 Asthma Father Unknown Sister Social History Socioeconomic History Marital status: Occupational History Employer: [employer] Tobacco Use Smoking status: Former Current packs/day: 0.00 Average packs/day: 1 pack/day for 44.0 years (44.0 ttl pk-yrs) Types: Cigarettes Start date: 03/03/1971 Quit date: 03/03/2015 Years since quittin.6 Tobacco comments: 1 ppd for 44 years, quit March 2015 Vaping Use Vaping status: Every Day Substances: Nicotine, Flavoring Devices: Disposable Substance and Sexual Activity Alcohol use: Not Currently Comment: 1 drink per year Drug use: No Social Drivers of Health Food Insecurity: No Food Insecurity (10/19/2024) Hunger Vital Sign Worried About Running Out of Food in the Last Year: Never true Ran Out of Food in the Last Year: Never true Transportation Needs: No Transportation Needs (10/19/2024) PRAPARE - Transportation Lack of Transportation (Medical): No Lack of Transportation (Non-Medical): No Housing Stability: Low Risk (10/19/2024) Housing Stability Vital Sign Unable to Pay for Housing in the Last Year: No Number of Times Moved in the Last Year: 0 Homeless in the Last Year: No Previous Medications Medication Sig apixaban (Eliquis) 5 mg Tab Take 1 (one) tablet (5 mg total) by mouth 2 (two) times a day . buPROPion (WELLBUTRIN XL) 300 MG 24 hr tablet Take 1 (one) tablet (300 mg total) by mouth daily . DULoxetine (CYMBALTA) 30 MG capsule Take 1 (one) capsule (30 mg total) by mouth daily Total of 90 mg with 60 mg prescription . DULoxetine (CYMBALTA) 60 MG capsule Take 1 (one) capsule (60 mg total) by mouth daily Total 90 mg daily . fexofenadine (ARIELLA) 180 MG tablet Take 1 (one) tablet (180 mg total) by mouth . fluticasone propionate (FLONASE) 50 mcg/actuation nasal spray Instill 1 (one) spray into each nostril daily . fluticasone-umeclidin- vilanter (Trelegy Ellipta) 200-62.5-25 mcg DsDv Inhale 1 (one) Inhalation. daily . furosemide (LASIX) 40 MG tablet Take 1 (one) tablet (40 mg total) by mouth 2 (two) times a day . levothyroxine (SYNTHROID, LEVOTHROID) 75 MCG tablet Take 1 (one) tablet (75 mcg total) by mouth daily . montelukast (SINGULAIR) 10 mg tablet Take 1 tablet (10 mg total) by mouth daily. pantoprazole (PROTONIX) 40 MG tablet Take by mouth . potassium chloride (MICRO-K) 10 MEQ CR capsule Take 1 (one) capsule (10 mEq total) by mouth daily . simvastatin (ZOCOR) 40 MG tablet Take 1 (one) tablet (40 mg total) by mouth daily . albuterol 90 mcg/actuation inhaler Inhale 2 (two) puffs every 6 (six) hours as needed for wheezing . clobetasoL (TEMOVATE) 0.05 % scalp solution fluticasone-umeclidin- vilanter (Trelegy Ellipta) 200-62.5-25 mcg DsDv Inhale 1 (one) Inhalation. daily . ipratropium-albuteroL (DUO-NEB) 0.5-2.5 mg/3 ml nebulizer Take 3 mL by nebulization 3 (three) times a day . meclizine (ANTIVERT) 25 mg tablet Take 1 (one) tablet (25 mg total) by mouth 3 (three) times a day as needed for nausea . NONFORMULARY CPAP 9cm H20 (DASKY) in [facility] ondansetron (ZOFRAN-ODT) 4 MG disintegrating tablet Dissolve 1 (one) tablet (4 mg total) on top of tongue every 6 to 8 hours as needed for nausea . SUMAtriptan (IMITREX) 50 MG tablet Take 1 (one) tablet (50 mg total) by mouth every 2 (two) hours as needed for migraine Max of 200 mg in 24hrs, do not treat more than 3 times a week . Allergies Allergen Reactions Amoxicilli (more content not included)... Normal [facility] EKGon 10-19-2024 [facility] H AND Agnel 10-19-2024 H AND P -- Attestation signed by Boby Augustin MD at 10/19/2024 12:47 PM [facility] [place]UM I saw and examined the patient independently of the NITIN . Labs, medications, imaging and other studies were reviewed. I agree with history, physical examination findings, medical decision making and the assessment/plan with additions as noted in my documentation below. HPI Patient was at a procedural/surgical appointment for her eyes when she developed and heavy...crampy pain in the anterior chest radiating up into her left and right neck intermittently. No feels back to normal. Denies any similar prior episodes. No N/V, diaphoresis, cough, wheezing, shortness of breath, syncope. No prior heart disease. No prior heart stents or procedures. Physical Examination General Appearance: alert; well appearing; in no acute distress HEENT: Head- normocephalic; Eyes- EOMI, sclera anicteric; Ears- hearing intact; Nose- no nasal discharge; Throat- mucous membranes moist Cardiovascular: regular rate and rhythm; normal S1, S2; no murmurs, rubs, clicks or gallops; no peripheral edema Respiratory: lungs clear to auscultation; without wheezes, rales or rhonchi; on room air Abdomen: soft, non-tender, non-distended; positive bowel sounds Neurological: oriented x 3; normal speech; no focal findings or movement disorder noted Musculoskeletal: no significant deformity or tenderness to palpation Skin: normal coloration; no obvious rashes, lesions or skin breakdown Psych: normal mood and affect Assessment/Plan Chest pain Chronic CHFpEF HLD DVT/PE 07/2024 COPD GERD Hypothyroidism Depression Obesity, BMI 41.2 Trend troponin Cardiac monitoring Eliquis, ASA, atorvastatin Echo Risk stratification with CCTA (would also r/o PE) vs stress test if troponin remains normal [facility] [place]YSICAL -- [facility] Patient Name: Lola Drew : 1950 MR #: [id number] Admit Date: 10/19/2024 Physicians: Sara Alvarez MD (Family); No ref. provider found (Referring) Lola Drew is a 74 y.o. female patient of Sara Alvarez MD with history of COPD, JOHNATHAN, HLD, hypothyroidism, hx of DVT with PE causing pulmonary HTN and RV dysfunction on eliquis presented to [facility] on 10/19/2024 with chest pain prior to cataract removal surgery at [facility] . Angina History of DVT / PE 07/2024 Pulmonary HTN HFpEF ECHO 07/25/2024 - Enlarged RV with reduced RV function, EF 81%, pulmonary HTN CXR - no acute processes TSH 1.38 Lipid profile - unremarkable Trop 8 , trend Heart score - 4 Continue Eliquis Nitroglycerin prn Repeat ECHO COPD Not in acute exacerbation Continue Singulair, Duo-Neb, Spriva, Dulera, albuerol prn GERD Continue Protonix Hypothyroidism Continue Synthroid HLD Continue statin Depression Continue duloxetine , Wellbutrin Residence prior to admission: house or apartment Was patient transferred from outlying hospital or ED no Quality Measures DVT Prophylaxis: eliquis Cannon Catheter: absent Medication Reconciliation: Verified Admitted with these risk variables:Pulmonary Hypertension and CHF. Please see assessment and plan for further details. Estimated Date of Discharge less than 2 midnights Code Status Full, unverified Chief Complaint Chest pain History of Present Illness Lola is a 74 y/o female with a past medical history significant for COPD, hyperlipidemia, hypothyroidism, GERD, depression and a history of DVT/PE on Eliquis in July 2024. As a result of the PE the patient was also diagnosed with severe pulmonary HTN and RV dysfunction The patient presented to [facility] today after experiencing chest pain prior to cataract removal surgery this AM at [facility]. The patient reports chest pain that start at rest with radiation to her jaw. This has since resolved. Currently she denies chest pain or shortness of breath. Past Medical History Past Medical History: Diagnosis Date Asthma Bronchitis Colitis COPD (chronic obstructive pulmonary disease) (HCC) Depression GERD (gastroesophageal reflux disease) Hypercholesterolemia Insomnia Obstructive sleep apnea Osteopenia Vitamin D deficiency Past Surgical History Past Surgical History: Procedure Laterality Date APPENDECTOMY CT COLONOSCOPY 05/18/2019 CT COLONOSCOPY FINGER SURGERY Bilateral 11/03/2009 thumb FOOT SURGERY HYSTERECTOMY (CERVIX REMAINS) NASAL SEPTUM SURGERY 1989 possibly TONSILLECTOMY AND ADENOIDECTOMY Family History Family History Problem Relation Age of Onset Other (unknown cancer) Mother Heart attack Father age 54 Asthma Father Unknown Sister Social History Social History Tobacco Use Smoking (more content not included)... Normal [facility] INR Coag (PPP) [Relative parul e]Ordered By: Vladislav Wright on 10-19-2024 Interpretation and review of laboratory results Abnormal [facility] PT Coag (PPP) [Time] 15.2 s High [facility] During the induction phase of oral anticoagulation, the INR may not reflect the anticoagulation status of the patient. Therapeutic ranges for INR's are: Most clinical situations: INR 2.0-3.0 Mechanical Prosthetic Valve: INR 2.5-3.5 Critical: INR >5.0 [facility] No Panel Informationon 10-19 [facility] PT/INROrdered By: Vladislav graham on 10-19-2024 INR Coag (PPP) [Relative time] 1.2 {INR} High 0.8 - 1.1 [facility] PT/INRon 10-19-2024 INR Coag (PPP) [Relative time] 1.2 {INR} High 0.8-1.1 [facility] Comment on above: Order Comment: Thera peutic range for APTT's is 68 - 104 seconds Performed By: #### [id number] #### [facility] [address], [place] [address] Davian Unger M.D. [id number] PT Coag (PPP) [Time] 15.2 s High 11.8-14.3 [facility] Comment on above: Order Comment: Thera peutic range for APTT's is 68 - 104 seconds Performed By: #### 4 [id number] #### LAB [address] [address] Davian Unger M.D. [id number] TROPONINon 10-19-2024 TROPONIN T DELTA CHANGE INTERPRETATION No biomarker evidence of cardiac injury. Normal [facility] Comment on above: Performed By: #### L [id number] #### LAB [address] [address] Davian Unger M.D. [id number] TROPONIN T DELTA DIFFERENCE 0 ng/L Normal < = -/+ 7 change [facility] Comment on above: Performed By: #### L [id number] #### LAB [address] [address] Davian Unger M.D. [id number] TROPONIN T NG/L 8 ng/L Normal <=14 [facility] Comment on above: Performed By: #### L [id number] #### LAB [address] [address] Davian Unger M.D. [id number] BASELINE TROPONIN T NG/L 8 ng/L Normal <=14 [facility] Comment on above: Performed By: #### L [id number] #### LAB [address] [address] Davian Unger M.D. [id number] TROPONIN T INTERPRETATION Normal Normal [facility] Comment on above: Performed By: #### L [id number] #### LAB [address] [place] [address] Davian Unger M.D. [id number] Troponin x 2 (Now and Repeat in 3 hours)on 10-19-2024 Delta Difference Troponin T 0 ng/L < = -/+ 7 change [facility] Troponin T Delta Change No biomarker evidence of cardiac injury. [facility] Troponin T 8 ng/L NINF - 14 ng/L [facility] Troponin T 8 ng/L NINF - 14 ng/L [facility] Troponin T Interpretation Normal [facility] XR CHEST PA/APon 10-19-2024 XR CHEST PA/AP EXAMINATION: XR CHEST PA/AP HISTORY: ORDERING SYSTEM PROVIDED HISTORY: Chest pain, TECHNOLOGIST PROVIDED HISTORY: Illness/Other Reason for exam: chest pain Cancer History: no Surgery, RadiationHistory: appendix, tonsils Encounter Type: Initial Additional signs and symptoms: chest pain started am. Reports hx of DVTs and currently has a DVT in leg, no cardiac hx. ORDERING SYSTEM PROVIDED DIAGNOSIS CODES: R07.89 Chest pain, atypical COMPARISON: 07/24/2024 FINDINGS: One-view chest x-ray. No pneumothorax, pleural effusion or focal airspace consolidation. Heart is normal in size. Bony thorax is unremarkable. IMPRESSION: No acute cardiopulmonary process. Workstation ID: [id number] Dictated by: EUGENIO FOWLER on FriOct 19, 2024 11:00:53 AM EST Transcribed by: EUGENIO FOWLER on FriOct 19, 2024 11:00:53 AM EST Finalized by: EUGENIO FOWLER on FriOct 19, 2024 11:00:53 AM EST Normal [facility] Comment on above: Order Comment: Injur y/Trauma or Illness?:Illness/OtherHow long have you had these symptoms (acute/chronic)?:AcuteReason for exam?:chest painHistory of cancer?:noSurgeries, chemotherapy, or radiation?:appendix, tonsilsType of Exam?:InitialAdditional signs and symptoms?:chest pain started am. Reports hx of DVTs and currently has a DVT in leg, no cardiac hx. XR Chest PA and Abdomen APon 10-19-2024 No acute cardiopulmonary process. Workstation ID: [id number] [employer] EXAMINATION: XR CHEST PA/AP HISTORY: ORDERING SYSTEM PROVIDED HISTORY: Chest pain, TECHNOLOGIST PROVIDED HISTORY: Illness/Other Reason for exam: chest pain Cancer History: no Surgery, RadiationHistory: appendix, tonsils Encounter Type: Initial Additional signs and symptoms: chest pain started am. Reports hx of DVTs and currently has a DVT in leg, no cardiac hx. ORDERING SYSTEM PROVIDED DIAGNOSIS CODES: R07.89 Chest pain, atypical COMPARISON: 07/24/2024 FINDINGS: One-view chest x-ray. No pneumothorax, pleural effusion or focal airspace consolidation. Heart is normal in size. Bony thorax is unremarkable. [employer] Eugenio Fowler MD - 10/19/2024 EXAMINATION: XR CHEST PA/AP HISTORY: ORDERING SYSTEM PROVIDED HISTORY: Chest pain, TECHNOLOGIST PROVIDED HISTORY: Illness/Other Reason for exam: chest pain Cancer History: no Surgery, RadiationHistory: appendix, tonsils Encounter Type: Initial Additional signs and symptoms: chest pain started am. Reports hx of DVTs and currently has a DVT in leg, no cardiac hx. ORDERING SYSTEM PROVIDED DIAGNOSIS CODES: R07.89 Chest pain, atypical COMPARISON: 07/24/2024 FINDINGS: One-view chest x-ray. No pneumothorax, pleural effusion or focal airspace consolidation. Heart is normal in size. Bony thorax is unremarkable. IMPRESSION: No acute cardiopulmonary process. Workstation ID: [id number] [facility] Radiology Study observation (narrative) [facility] XR Chest PA and Abdomen APOr dered By: Eugenio Fowler on 10-19-2024 [facility] Work Phone: DUPLEX VENOUS LEG RIGHTon 09-15-2024 US DUPLEX VENOUS LEG RIGHT Patient Info Name: LOLA DREW Age: 74 years : 1950 Gender: Female Exam Date: 09/15/2024 8:48 AM Patient Status: Outpatient Timber Hand: Johanny Valadez RDMS (AB), RVS Referring Physician: ROGELIO PANDA ; Indications I26.99 - Other pulmonary embolism without acute cor pulmonale - right peroneal DVT Procedure Description 33474 Duplex examination using B-mode, color and spectral Doppler of extremity veins including responses to compression and other maneuvers; unilateral or limited study. Conclusions * Right. * Age Indeterminate deep vein thrombosis in the mid peroneal veins of the right lower extremity. * No progression/extension of deep vein thrombosis from peroneal veins relative to prior study. * Remainder of the veins are within normal limits. Prior Study Date: 07/26/2024 Risk Factors Patient has a history of hyperlipidemia, obesity, PE and tobacco use-previous. Patient on home medications prior to study. . Report Signatures Finalized by Chantel Clay MD on 09/15/2024 11:28 AM External Iliac: - External Iliac: Normal External Iliac: Normal External Iliac: - External Iliac: - External Iliac: - Common Femoral: Complete Common Femoral: Normal Common Femoral: Normal Common Femoral: Complete Common Femoral: Normal Common Femoral: Normal Femoral: Complete Femoral: - Femoral: Normal Femoral: - Femoral: Normal Femoral: - Peroneal: Partial Peroneal: - Peroneal: Reduced Peroneal: - Peroneal: Reduced Peroneal: - Profunda Femoral: Complete Profunda Femoral: - Profunda Femoral: - Profunda Femoral: - Profunda Femoral: - Popliteal: Complete Popliteal: - Popliteal: Normal Popliteal: - Popliteal: Normal Popliteal: - Posterior Tibial: Complete Posterior Tibial: - Posterior Tibial: - Posterior Tibial: - Posterior Tibial: - Posterior Tibial: - Gastrocnemius: - Gastrocnemius: - Gastrocnemius: - Gastrocnemius: - Gastrocnemius: - Gastrocnemius: - Soleal: - Soleal: - Soleal: - Soleal: - Soleal: - Soleal: - Great Saphenous: Complete Great Saphenous: - Great Saphenous: Normal Great Saphenous: - Great Saphenous: Normal Great Saphenous: - Small Saphenous: - Small Saphenous: - Small Saphenous: - Small Saphenous: - Small Saphenous: - Small Saphenous: - - Normal [facility] DUPLEX VENOUS LEG RIGHT Patient Info Name: LOLA DREW Age: 74 years : 1950 Gender: Female Exam Date: 09/15/2024 8:48 AM Patient Status: Outpatient Timber Hand: Johanny Valadez RDMS (AB), RVS Referring Physician: ROGELIO PANDA ; Indications I26.99 - Other pulmonary embolism without acute cor pulmonale - right peroneal DVT Procedure Description 97745 Duplex examination using B-mode, color and spectral Doppler of extremity veins including responses to compression and other maneuvers; unilateral or limited study. Conclusions * Right. * Age Indeterminate deep vein thrombosis in the mid peroneal veins of the right lower extremity. * No progression/extension of deep vein thrombosis from peroneal veins relative to prior study. * Remainder of the veins are within normal limits. Prior Study Date: 07/26/2024 Risk Factors Patient has a history of hyperlipidemia, obesity, PE and tobacco use-previous. Patient on home medications prior to study. . Report Signatures Finalized by Chantel Clay MD on 09/15/2024 11:28 AM External Iliac: - External Iliac: Normal External Iliac: Normal External Iliac: - External Iliac: - External Iliac: - Common Femoral: Complete Common Femoral: Normal Common Femoral: Normal Common Femoral: Complete Common Femoral: Normal Common Femoral: Normal Femoral: Complete Femoral: - Femoral: Normal Femoral: - Femoral: Normal Femoral: - Peroneal: Partial Peroneal: - Peroneal: Reduced Peroneal: - Peroneal: Reduced Peroneal: - Profunda Femoral: Complete Profunda Femoral: - Profunda Femoral: - Profunda Femoral: - Profunda Femoral: - Popliteal: Complete Popliteal: - Popliteal: Normal Popliteal: - Popliteal: Normal Popliteal: - Posterior Tibial: Complete Posterior Tibial: - Posterior Tibial: - Posterior Tibial: - Posterior Tibial: - Posterior Tibial: - Gastrocnemius: - Gastrocnemius: - Gastrocnemius: - Gastrocnemius: - Gastrocnemius: - Gastrocnemius: - Soleal: - Soleal: - Soleal: - Soleal: - Soleal: - Soleal: - Great Saphenous: Complete Great Saphenous: - Great Saphenous: Normal Great Saphenous: - Great Saphenous: Normal Great Saphenous: - Small Saphenous: - Small Saphenous: - Small Saphenous: - Small Saphenous: - Small Saphenous: - Small Saphenous: - - Dictated by: CHANTEL CLAY on FriSep 15, 2024 11:30:55 AM EST Transcribed by: CHANTEL CLAY on FriSep 15, 2024 11:30:55 AM EST Finalized by: CHANTEL CLAY on FriSep 15, 2024 11:30:55 AM EST [facility] FACTOR V (F5) LEIDEN MUTATIO N ([id number])on 08-30-2024 SPRINGER - F5DNA INTERPRETATION See Ref Lab Comment Normal [facility] Comment on above: Result Comment: This individual DOES NOT have the factor V Leiden F5 c.1601G>A; p.Vcm315Yqe (legacy numbering [id number]) variant. Although the factor V Leiden variant is absent, the individual may have other genetic and environmental risk factors for venous thromboembolism. If indicated, consider genetic consultation and counseling for this individual and family members regarding laboratory testing. ADDITIONAL INFORMATION This test uses TaqMan Genotyping chemistry to amplify and detect specific single nucleotide polymorphisms in purified genomic DNA. DISCLAIMER Discrepancy between the activated protein C resistance assay and the DNA based F5 c.1601 G>A. p.Ecw920Ktp assay may be observed in patients receiving allogenic stem cell transplants or liver transplants. This test was developed and its performance characteristics determined by [facility] in a manner consistent with CLIA requirements. This test has not been cleared or approved by the U.S. Food and Drug Administration. Performed By: #### L [id number] #### LAB [address] [address] Davian Unger M.D. [id number] SPRINGER - F5DNA REVIEWED BY SEE BELOW [facility] Comment on above: Result Comment: RESU LT: ABBY Alegria Test Performed by: [place] [address] Consultant Internship: Roxy Hall Ph.D.; CLIA# [id number] Performed By: #### L [id number] #### LAB [address] [address] Davian Unger M.D. [id number] SPRINGER - FACTOR V LEIDEN MUTATION RESULT Negative Normal Negative [facility] Comment on above: Performed By: #### L [id number] #### LAB [address] [address] Davian Unger M.D. [id number] PROTHROMBIN (F2) MUTATION (G [id number])on 08-30-2024 SPRINGER - PROTHROMBIN [id number] MUTATION RESULT Negative Normal Negative [facility] Comment on above: Performed By: #### L [id number] #### LAB [address] [address] Davian Unger M.D. [id number] SPRINGER - PTNT INTERPRETATION See Ref Lab Comment [facility] Comment on above: Result Comment: This individual DOES NOT have the Prothrombin F2 c.*97G>A (legacy numbering [id number]) variant. Although the Prothrombin (F2 c.*97G>A) variant is absent, this individual may have other genetic and environmental risk factors for thrombosis. If indicated, consider genetic consultation and counseling for this individual and potentially affected family members regarding laboratory testing. ADDITIONAL INFORMATION This test uses TaqMan Genotyping chemistry to amplify and detect specific single nucleotide polymorphisms in purified genomic DNA. DISCLAIMER Patients receiving allogenic stem cell transplants prior to having blood drawn for DNA based testing may have false normal or abnormal results depending on the genotype of the stem cell donor. This test was developed and its performance characteristics determined by [facility] in a manner consistent with CLIA requirements. This test has not been cleared or approved by the U.S. Food and Drug Administration. Performed By: #### L [id number] #### [facility] [address], [place] [address] Davian Unger M.D. [id number] [facility] REVIEWED BY SEE BELOW [facility] Comment on above: Result Comment: RESU LT: ABBY Alegria Test Performed by: [place] [address] Consultant Internship: Roxy Hall Ph.D.; CLIA# [id number] Performed By: #### L [id number] #### [facility] [address], [place] [address] Davian Unger M.D. [id number] MM SCREENING GWYN BILATERALo n 08-04-2024 MM SCREENING GWYN BILATERAL EXAMINATION: MM SCREENING GWYN BILATERAL HISTORY: ORDERING SYSTEM PROVIDED HISTORY: Encounter for screening mammogram for malignant neoplasm of breast, TECHNOLOGIST PROVIDED HISTORY: ORDERING SYSTEM PROVIDED DIAGNOSIS CODES: Z12.31 Encounter for screening mammogram for malignant neoplasm of breast COMPARISON: Mammograms dating back to 08/18/2014. TECHNIQUE: Bilateral 2D and 3D mammographic views. Computer-aided detection was utilized in the interpretation of this exam. FINDINGS: The breasts are almost entirely fatty. No suspicious microcalcifications, dominant mass or architectural distortion. No developing asymmetry. There are no suspicious findings. IMPRESSION: No mammographic evidence for malignancy. BIRADS: BIRADS - CATEGORY 1 Negative, no evidence of malignancy. Normal interval follow-up is recommended in 12 months. OVERALL ASSESSMENT - NEGATIVE A letter of notification will be sent to the patient regarding the results. [facility], along with the National [employer] Network and the [employer] recommend annual screening mammograms for women age 40 and older. /Kites Workstation ID: [id number] Dictated by: ANGELO CHRISTOPHER on FriAug 05, 2024 12:29:43 PM EDT Transcribed by: ORQUIDEA HODGES on FriAug 05, 2024 1:23:26 PM EDT Finalized by: ANGELO CHRISTOPHER on FriAug 05, 2024 8:58:30 PM EDT Normal [facility] ED Prov Noteon 07-30-2024 ED Prov Note ED PROVIDER NOTE [facility] EMERGENCY DEPARTMENT NAME: Lola Drew AGE: 74 y.o. : 1950 VISIT DATE: 07/30/2024 CSN: [id number] PCP: Sara Alvarez MD No chief complaint on file. 74-year-old female presents to the emergency department for evaluation. Patient did have a recent hospitalization for newly diagnosed PE, she is compliant with her Eliquis. She also reports a history of COPD and chronic bronchitis. States that over the past 5 or so days she has been coughing and yesterday she noticed some green sputum. No hemoptysis. No chest pain. No shortness of breath. No fever. No GI or complaints. Denies any other associated symptoms or complaints. Past Medical History: Diagnosis Date Asthma Bronchitis Colitis COPD (chronic obstructive pulmonary disease) (HCC) Depression GERD (gastroesophageal reflux disease) Hypercholesterolemia Insomnia Obstructive sleep apnea Osteopenia Vitamin D deficiency Past Surgical History: Procedure Laterality Date APPENDECTOMY CT COLONOSCOPY 05/18/2019 CT COLONOSCOPY FINGER SURGERY Bilateral 11/03/2009 thumb FOOT SURGERY HYSTERECTOMY (CERVIX REMAINS) TONSILLECTOMY AND ADENOIDECTOMY Family History Problem Relation Age of Onset Heart attack Father age 54 Asthma Father Cancer Father age 48 Social History Socioeconomic History Marital status: Occupational History Employer: [employer] Tobacco Use Smoking status: Former Current packs/day: 0.00 Average packs/day: 1 pack/day for 44.0 years (44.0 ttl pk-yrs) Types: Cigarettes Start date: 03/03/1971 Quit date: 03/03/2015 Years since quittin.4 Tobacco comments: 1 ppd for 44 years, quit March 2015 Vaping Use Vaping status: Every Day Substances: Nicotine, Flavoring Devices: Disposable Substance and Sexual Activity Alcohol use: Not Currently Comment: 1 drink per week Drug use: No Social Determinants of Health Food Insecurity: No Food Insecurity (07/25/2024) Hunger Vital Sign Worried About Running Out of Food in the Last Year: Never true Ran Out of Food in the Last Year: Never true Transportation Needs: No Transportation Needs (07/25/2024) PRAPARE - Transportation Lack of Transportation (Medical): No Lack of Transportation (Non-Medical): No Housing Stability: Low Risk (07/25/2024) Housing Stability Vital Sign Unable to Pay for Housing in the Last Year: No Number of Times Moved in the Last Year: 0 Homeless in the Last Year: No Previous Medications Medication Sig albuterol 90 mcg/actuation inhaler Inhale 2 (two) puffs every 6 (six) hours as needed for wheezing . apixaban (Eliquis DVT-PE Treat 30D Start) 5 mg (74 tabs) DsPk Take 2 tablets (10mg) by mouth 2 (two) time a day for 7 days. Then take 1 tablet (5mg) by mouth 2 (two) times a day for 23 days . buPROPion (WELLBUTRIN XL) 300 MG 24 hr tablet Take 1 (one) tablet (300 mg total) by mouth daily . calcium carbonate-vitamin D3 600 mg-20 mcg (800 unit) Tab Take 1 tablet by mouth . clobetasoL (TEMOVATE) 0.05 % scalp solution cyanocobalamin, vitamin B-12, 2,500 mcg Tab Take 1 (one) tablet (2,500 mcg total) by mouth . DULoxetine (CYMBALTA) 30 MG capsule Take 1 (one) capsule (30 mg total) by mouth daily Total of 90 mg with 60 mg prescription . DULoxetine (CYMBALTA) 60 MG capsule fexofenadine (ARIELLA) 180 MG tablet Take 1 (one) tablet (180 mg total) by mouth . fluticasone propionate (FLONASE) 50 mcg/actuation nasal spray Instill 1 (one) spray into each nostril daily . fluticasone-umeclidin- vilanter (Trelegy Ellipta) 200-62.5-25 mcg DsDv Inhale 1 puff daily . furosemide (LASIX) 40 MG tablet Take 1 (one) tablet (40 mg total) by mouth 2 (two) times a day . ipratropium-albuteroL (DUO-NEB) 0.5-2.5 mg/3 ml nebulizer Take 3 mL by nebulization 3 (three) times a day . levothyroxine (SYNTHROID, LEVOTHROID) 75 MCG tablet Take 1 (one) tablet (75 mcg total) by mouth daily . meclizine (ANTIVERT) 25 mg tablet Take 1 (one) tablet (25 mg total) by mouth 3 (three) times a day as needed for nausea . montelukast (SINGULAIR) 10 mg tablet Take 1 tablet (10 mg total) by mouth daily. NONFORMULARY CPAP 9cm H20 (DASCO) in [facility] ondansetron (ZOFRAN-ODT) 4 MG disintegrating tablet Dissolve 1 (one) tablet (4 mg total) on top of tongue every 6 to 8 hours as needed for nausea . pantoprazole (PROTONIX) 40 MG tablet Take by mouth . simvastatin (ZOCOR) 40 MG tablet Take 1 (one) tablet (40 mg total) by mouth daily . SUMAtriptan (IMITREX) 50 MG tablet Take 1 (one) tablet (50 mg total) by mouth every 2 (two) hours as needed for migraine Max of 200 mg in 24hrs, do not treat more than 3 times a week . Allergies Allergen Reactions Amoxicillin Bee Venom Protein (Honey Bee) Swelling Sulfa (Sulfonamide Antibiotics) Penicillins Rash Review of Systems HENT: Positive for congestion. Respiratory: (more content not included)... 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 TECHNIQUE: Routine low-dose CT lung screen without intravenous contrast. Dose reduction techniques were achieved by using automated exposure control and/or adjustment of mA and/or kV according to patient size and/or use of iterative reconstruction technique. FINDINGS: Coronary Artery Calcifications: There may be a small atheromatous calcification along the left coronary artery. Cardiovascular: Moderate atheromatous calcification along the aortic arch and origin of the right subclavian artery. Mild atheromatous calcification proximal abdominal aorta. Lungs: There is mild peribronchial thickening consistent with acute and/or chronic bronchitis. There are reticular densities within both upper and to a lesser extent both lower lobes suggesting atelectasis and/or parenchymal scarring. Nodules: There are 2 mm and 2.1 mm noncalcified right upper lobe nodules which may be obscured on the prior examination (series 2, image 23). There is a 2.8 mm noncalcified right upper lobe nodule which may be obscured on the prior examination (series 2, image 46). New 3.6 mm noncalcified right lower lobe nodule, possibly inflammatory (series 2, image 103). There is a 3.2 mm noncalcified right lower lobe nodule which may be obscured on the prior examination (series 2, image 118). There are 2.6 mm and 2.4 mm noncalcified right lower lobe nodules which may be obscured on the prior examination (series 2, image 95). There is a 3.5 mm right upper lobe ground-glass opacity which may be obscured on the prior examination (series 2, image 35). There is a 1.9 mm noncalcified perifissural nodule left major fissure which may be obscured on the prior examination (series 2, image 46). There is a 3.4 mm noncalcified left apical nodule stable compared to 07/24/2024 however new compared to 12/08/2008) series 2, image 18). Lymphadenopathy: There are no pathologically enlarged lymph nodes. Other: There is a small hiatal hernia. The trachea, esophagus and thyroid gland are unremarkable. Upper Abdomen: Atherosclerotic disease as described. Musculoskeletal: The bony structures are osteopenic. There is mild dextroscoliosis and kyphosis of the spine. There are discogenic degenerative changes at several levels along the spine ranging from mild to severe. IMPRESSION: Mild peribronchial thickening consistent with acute and/or chronic bronchitis. Noncalcified nodules ranging from 1.9 mm to 3.6 mm. There are no pathologically enlarged lymph nodes. Additional findings as described in the body of the report. Lung rads score 2. A low-dose CT lung screening examination in 12 months is recommended. Workstation ID: [id number] Dictated by: RAMY SIM on FriAug 03, 2024 8:10:38 AM EDT Transcribed by: RAMY SIM on FriAug 03, 2024 8:10:38 AM EDT Finalized by: RAMY SIM on FriAug 03, 2024 8:10:38 AM EDT Normal [facility] Comment on above: Order Comment: Thera peutic range for APTT's is 68 - 104 seconds [facility] Glucose [Mass/Vol] 154 mg/dL High 65-99 [facility] Comment on above: Performed By: #### L [id number] #### [facility] LAB [address] [address] Davian Unger M.D. [id number] APTTon 07-27-2024 aPTT Coag (Bld) [Time] 30 s Normal 23-34 [facility] Comment on above: Order Comment: Thera peutic range for APTT's is 68 - 104 seconds Performed By: #### [id number] #### [facility] LAB [address], [place] [address] Davian Unger M.D. [id number] BASIC METABOLIC PANELon 07-05 Anion gap [Moles/Vol] 15 mmol/L Normal 10-20 [facility] Comment on above: Order Comment: [facility] has implemented the eGFR calculation approach that does not have a coefficient for race that conforms to the NKF-ASN Task Force Recommendations. Performed By: #### L [id number] #### MH LAB [address], [place] [address] Davian Unger M.D. [id number] Calcium [Mass/Vol] 9.0 mg/dL Normal 8.4-10.2 [facility] Comment on above: Order Comment: [facility] has implemented the eGFR calculation approach that does not have a coefficient for race that conforms to the NKF-ASN Task Force Recommendations. Performed By: #### L [id number] #### [facility] LAB [address], [place] [address] Davian Unger M.D. [id number] Chloride [Moles/Vol] 102 mmol/L Normal 98-108 [facility] Comment on above: Order Comment: [facility] has implemented the eGFR calculation approach that does not have a coefficient for race that conforms to the NKF-ASN Task Force Recommendations. Performed By: #### L [id number] #### [facility] LAB [address] [address] Davian Unger M.D. [id number] Creatinine [Mass/Vol] 1.03 mg/dL Normal 0.60-1.10 [facility] Comment on above: Order Comment: [facility] has implemented the eGFR calculation approach that does not have a coefficient for race that conforms to the NKF-ASN Task Force Recommendations. Performed By: #### L [id number] #### [facility] LAB [address] [address] Davian Unger M.D. [id number] EGFR 57 mL/min/1.73 m2 Low >=60 [facility] Comment on above: Order Comment: [facility] has implemented the eGFR calculation approach that does not have a coefficient for race that conforms to the NKF-ASN Task Force Recommendations. Result Comment: Hayde mated GFR was calculated using the 2020 CKD-EPI creatinine equation. Performed By: #### L [id number] #### [facility] LAB [address], [place] [address] Davian Unger M.D. [id number] Glucose [Mass/Vol] 109 mg/dL High 65-99 [facility] Comment on above: Order Comment: [facility] has implemented the eGFR calculation approach that does not have a coefficient for race that conforms to the NKF-ASN Task Force Recommendations. Performed By: #### L [id number] #### [facility] LAB [address] [address] Davian Unger M.D. [id number] HCO3 (Bld) [Moles/Vol] 27 mmol/L Normal 21-32 [facility] Comment on above: Order Comment: [facility] has implemented the eGFR calculation approach that does not have a coefficient for race that conforms to the NKF-ASN Task Force Recommendations. Performed By: #### L [id number] #### [facility] LAB [address] [address] Davian Unger M.D. [id number] Potassium [Moles/Vol] 3.5 mmol/L Normal 3.5-5.1 [facility] Comment on above: Order Comment: [facility] has implemented the eGFR calculation approach that does not have a coefficient for race that conforms to the NKF-ASN Task Force Recommendations. Performed By: #### L [id number] #### [facility] LAB [address] [address] Davian Unger M.D. [id number] Sodium [Moles/Vol] 140 mmol/L Normal 135-145 [facility] Comment on above: Order Comment: [facility] has implemented the eGFR calculation approach that does not have a coefficient for race that conforms to the NKF-ASN Task Force Recommendations. Performed By: #### L [id number] #### [facility] [address] [address] Davian Unger M.D. [id number] Urea nitrogen [Mass/Vol] 17 mg/dL Normal 8-25 [facility] Comment on above: Order Comment: [facility] has implemented the eGFR calculation approach that does not have a coefficient for race that conforms to the NKF-ASN Task Force Recommendations. Performed By: #### L [id number] #### [facility] [address] [address] Davian Unger M.D. [id number] Urea nitrogen/Creatinine [Mass ratio] 16.5 mg/mg Normal 10.0-20.0 [facility] Comment on above: Order Comment: [facility] has implemented the eGFR calculation approach that does not have a coefficient for race that conforms to the NKF-ASN Task Force Recommendations. Performed By: #### L [id number] #### LAB [address] [address] Davian Unger M.D. [id number] CBCon 07-27-2024 AUTO NRBC 0.0 % Normal [facility] Comment on above: Order Comment: While on heparin Performed By: #### L [id number] #### [facility] LAB [address] [address] Davian Unger M.D. [id number] AUTO NRBC ABS COUNT 0.00 K/mcL Normal 0.00-0.00 [facility] Comment on above: Order Comment: While on heparin Performed By: #### L [id number] #### LAB [address] [place] [address] Davian Unger M.D. [id number] Erythrocyte distribution width (RBC) [Ratio] 13.7 % Normal 11.6-14.8 [facility] Comment on above: Order Comment: While on heparin Performed By: #### L [id number] #### LAB [address] [place] [address] Davian Unger M.D. [id number] Hematocrit (Bld) [Volume fraction] 39.7 % Normal 36.0-46.0 [facility] Comment on above: Order Comment: While on heparin Performed By: #### L [id number] #### [facility] LAB [address] [place] [address] Davian Unger M.D. [id number] Hemoglobin (Bld) [Mass/Vol] 13.0 g/dL Normal 12.0-16.0 [facility] Comment on above: Order Comment: While on heparin Performed By: #### L [id number] #### [facility] LAB [address] [place] [address] Davian Unger M.D. [id number] MCH (RBC) [Entitic mass] 30.4 pg Normal 26.0-34.0 [facility] Comment on above: Order Comment: While on heparin Performed By: #### L [id number] #### [facility] [address] [address] Davian Unger M.D. [id number] MCV (RBC) [Entitic vol] 93.0 fL Normal 80.0-100.0 [facility] Comment on above: Order Comment: While on heparin Performed By: #### L [id number] #### LAB [address] [address] Davian Unger M.D. [id number] MEAN CORPUSCULAR HEMOGLOBIN CONC 32.7 g/dL Normal 31.0-37.0 [facility] Comment on above: Order Comment: While on heparin Performed By: #### L [id number] #### [facility] [address] [address] Davian Unger M.D. [id number] Platelet mean volume (Bld) [Entitic vol] 10.9 fL Normal 9.4-12.4 [facility] Comment on above: Order Comment: While on heparin Performed By: #### L [id number] #### LAB [address] [place] [address] Davian Unger M.D. [id number] Platelets (Bld) [#/Vol] 147 10*3/uL Low 150-400 [facility] Comment on above: Order Comment: While on heparin Performed By: #### L [id number] #### [facility] [address] [place] [address] Davian Unger M.D. [id number] RBC (Bld) [#/Vol] 4.27 10*6/uL Normal 4.00-5.20 [facility] Comment on above: Order Comment: While on heparin Performed By: #### L [id number] #### [facility] [address] [place] [address] Davian Unger M.D. [id number] WBC (Bld) [#/Vol] 7.41 10*3/uL Normal 4.50-11.00 [facility] Comment on above: Order Comment: While on heparin Performed By: #### L [id number] #### [facility] [address] [address] Davian Unger M.D. [id number] PT/INRon 07-27-2024 INR Coag (PPP) [Relative time] 1.6 {INR} High 0.8-1.1 [facility] Comment on above: Order Comment: Tatiana espinal the induction phase of oral anticoagulation, the INR may not reflect the anticoagulation status of the patient. Therapeutic ranges for INR's are:Most clinical situations: INR 2.0-3.0Mechanical Prosthetic Valve: INR 2.5-3.5Critical: INR >5.0 Performed By: #### L [id number] #### LAB [address] [address] Davian Unger M.D. [id number] PT Coag (PPP) [Time] 19.0 s High 11.8-14.3 [facility] Comment on above: Order Comment: Tatiana espinal the induction phase of oral anticoagulation, the INR may not reflect the anticoagulation status of the patient. Therapeutic ranges for INR's are:Most clinical situations: INR 2.0-3.0Mechanical Prosthetic Valve: INR 2.5-3.5Critical: INR >5.0 Performed By: #### L [id number] #### LAB [address] [address] Davian Unger M.D. [id number] APTT HEPARIN COVERAGEon 07-05 aPTT Coag (Bld) [Time] 79 s High [address] [place] [address] Comment on above: Order Comment: Thera peutic range for APTT's is 68 - 104 seconds Performed By: #### L [id number] #### LAB [address] [address] Davian Unger M.D. [id number] aPTT Coag (Bld) [Time] 107 s High [address] [place] [address] Comment on above: Order Comment: Thera peutic range for APTT's is 68 - 104 seconds Performed By: #### L [id number] #### LAB [address] [address] Davian Unger M.D. [id number] US DUPLEX VENOUS LEGS LUIS ENRIQUE Tabares 07-26-2024 US DUPLEX VENOUS LEGS BILATERAL Patient Info Name: LOLA DREW Age: 74 years : 1950 Gender: Female Exam Date: 07/26/2024 7:27 AM Patient Status: Inpatient Tim[place] Hand: Brina Turcios RVT Referring Physician: BOBY AVILES ; Indications I26.99 - Other pulmonary embolism without acute cor pulmonale R22.43 - Localized swelling, mass and lump, lower limb, bilateral Procedure Description [id number] Duplex examination using B-mode, color and spectral Doppler of extremity veins including responses to compression and other maneuvers; complete bilateral study. Conclusions * Right. * Acute deep vein thrombosis in the mid peroneal veins (one of the paired) of the right lower extremity. * All other vein visualized in the right lower extremity are within normal limits. * Left. * No evidence of deep vein thrombosis in the left lower extremity. Risk Factors Pulmonary embolism and bilateral lower extremity swelling. Patient has a history of hyperlipidemia, obesity (5'4 and 235#), tobacco use-previous and PE. . Notification of Results: Results called to Dr. Jang at 07/26/2024 7:27:00 AM. Report Signatures Finalized by OMAR Su DO on 07/26/2024 11:56 AM External Iliac: - External Iliac: Normal External Iliac: Normal External Iliac: - External Iliac: Normal External Iliac: Normal Common Femoral: Complete Common Femoral: Normal Common Femoral: Normal Common Femoral: Complete Common Femoral: Normal Common Femoral: Normal Femoral: Complete Femoral: Complete Femoral: Normal Femoral: Normal Femoral: Normal Femoral: Normal Peroneal: None Peroneal: Complete Peroneal: - Peroneal: - Peroneal: - Peroneal: - Profunda Femoral: Complete Profunda Femoral: - Profunda Femoral: Complete Profunda Femoral: - Profunda Femoral: - Popliteal: Complete Popliteal: Complete Popliteal: Normal Popliteal: Normal Popliteal: Normal Popliteal: Normal Posterior Tibial: Complete Posterior Tibial: Complete Posterior Tibial: - Posterior Tibial: - Posterior Tibial: - Posterior Tibial: - Gastrocnemius: - Gastrocnemius: - Gastrocnemius: - Gastrocnemius: - Gastrocnemius: - Gastrocnemius: - Soleal: - Soleal: - Soleal: - Soleal: - Soleal: - Soleal: - Great Saphenous: Complete Great Saphenous: Complete Great Saphenous: Normal Great Saphenous: Normal Great Saphenous: Normal Great Saphenous: Normal Small Saphenous: - Small Saphenous: - Small Saphenous: - Small Saphenous: - Small Saphenous: - Small Saphenous: - - Normal [facility] APTT HEPARIN COVERAGEon 07-05 aPTT Coag (Bld) [Time] 79 s High [address] [place] [address] Comment on above: Order Comment: Thera peutic range for APTT's is 68 - 104 seconds Performed By: #### L [id number] #### LAB [address] [address] Davian Unger M.D. [id number] aPTT Coag (Bld) [Time] [address] Comment on above: Order Comment: Thera peutic range for APTT's is 68 - 104 seconds Performed By: #### [id number] #### LAB [address] [address] Davian Unger M.D. [id number] aPTT Coag (Bld) [Time] 171 s Off scale [address] Comment on above: Order Comment: Thera peutic range for APTT's is 68 - 104 seconds Performed By: #### L [id number] #### LAB [address] [address] Davian Unger M.D. [id number] CBC WITH AUTO DIFFERENTIALon 07-25-2024 AUTO NRBC 0.0 % [facility] Comment on above: Performed By: #### L [id number] #### LAB [address] [address] Davian Unger M.D. [id number] AUTO NRBC ABS COUNT 0.00 K/mcL Normal 0.00-0.00 [facility] Comment on above: Performed By: #### L [id number] #### LAB [address] [address] Davian Unger M.D. [id number] BASOPHILS ABSOLUTE COUNT 0.02 K/mcL Normal 0.00-0.30 [facility] Comment on above: Performed By: #### L [id number] #### LAB [address] [address] Davian Unger M.D. [id number] Basophils/100 WBC (Bld) 0.4 % Normal [facility] Comment on above: Performed By: #### L [id number] #### LAB [address] [address] Davian Unger M.D. [id number] Eosinophils (Bld) [#/Vol] 0.02 10*3/uL Normal 0.00-0.50 [facility] Comment on above: Performed By: #### L [id number] #### LAB [address] [place] [address] Davian Unger M.D. [id number] Eosinophils/100 WBC (Bld) 0.4 % Normal [facility] Comment on above: Performed By: #### L [id number] #### LAB [address] [place] [address] Davian Unger M.D. [id number] Erythrocyte distribution width (RBC) [Ratio] 13.4 % Normal 11.6-14.8 [facility] Comment on above: Performed By: #### L [id number] #### LAB [address] [place] [address] Davian Unger M.D. [id number] Hematocrit (Bld) [Volume fraction] 41.0 % Normal 36.0-46.0 [facility] Comment on above: Performed By: #### L [id number] #### LAB [address] [place] [address] Davian Unger M.D. [id number] Hemoglobin (Bld) [Mass/Vol] 13.8 g/dL Normal 12.0-16.0 [facility] Comment on above: Performed By: #### L [id number] #### LAB [address] [address] Davian Unger M.D. [id number] IG ABSOLUTE 0.02 K/mcL Normal 0.00-0.30 [facility] Comment on above: Performed By: #### L [id number] #### LAB [address] [place] [address] Davian Unger M.D. [id number] IG PERCENT 0.40 % Normal [facility] Comment on above: Result Comment: The IG parameter is the percentage of metamyelocytes, myelocytes and promyelocytes. An immature granulocyte count (IG) of 1% or more suggests the possibility of infection, an IG count of 3% is very likely related to an infection. Performed By: #### L [id number] #### LAB [address] [place] [address] Davian Unger M.D. [id number] Lymphocytes (Bld) [#/Vol] 0.71 10*3/uL Low 0.90-4.00 [facility] Comment on above: Performed By: #### L [id number] #### LAB [address] [address] Davian Unger M.D. [id number] Lymphocytes/100 WBC (Bld) 13.8 % Normal [facility] Comment on above: Performed By: #### L [id number] #### LAB [address] [address] Davian Unger M.D. [id number] MCH (RBC) [Entitic mass] 30.3 pg Normal 26.0-34.0 [facility] Comment on above: Performed By: #### L [id number] #### LAB [address] [address] Davian Unger M.D. [id number] MCV (RBC) [Entitic vol] 90.1 fL Normal 80.0-100.0 [facility] Comment on above: Performed By: #### L [id number] #### LAB [address] [place] [address] Davian Unger M.D. [id number] MEAN CORPUSCULAR HEMOGLOBIN CONC 33.7 g/dL Normal 31.0-37.0 [facility] Comment on above: Performed By: #### L [id number] #### LAB [address] [address] Davian Unger M.D. [id number] Monocytes (Bld) [#/Vol] 0.06 10*3/uL Low 0.30-0.90 [facility] Comment on above: Performed By: #### L [id number] #### [facility] [address] [address] Davian Unger M.D. [id number] Monocytes/100 WBC (Bld) 1.2 % Normal [facility] Comment on above: Performed By: #### L [id number] #### LAB [address] [address] Davian Unger M.D. [id number] NEUTROPHILS ABSOLUTE COUNT 4.33 K/mcL Normal 1.70-7.00 [facility] Comment on above: Performed By: #### L [id number] #### LAB [address] [address] Davian Unger M.D. [id number] Neutrophils/100 WBC (Bld) 83.8 % Normal [facility] Comment on above: Performed By: #### L [id number] #### LAB [address] [address] Davian Unger M.D. [id number] Platelet mean volume (Bld) [Entitic vol] 10.9 fL Normal 9.4-12.4 [facility] Comment on above: Performed By: #### L [id number] #### [facility] [address] [address] Davian Unger M.D. [id number] Platelets (Bld) [#/Vol] 151 10*3/uL Normal 150-400 [facility] Comment on above: Performed By: #### L [id number] #### [facility] [address] [address] Davian Unger M.D. [id number] RBC (Bld) [#/Vol] 4.55 10*6/uL Normal 4.00-5.20 [facility] Comment on above: Performed By: #### L [id number] #### [facility] [address] [address] Davian Unger M.D. [id number] WBC (Bld) [#/Vol] 5.16 10*3/uL Normal 4.50-11.00 [facility] Comment on above: Performed By: #### L [id number] #### [facility] [address] [address] Davian Unger M.D. [id number] COMPREHENSIVE METABOLIC PANE [facility] 07-25-2024 Albumin [Mass/Vol] 4.1 g/dL Normal 3.2-5.2 [facility] Comment on above: Order Comment: [facility] has implemented the eGFR calculation approach that does not have a coefficient for race that conforms to the NKF-ASN Task Force Recommendations. Performed By: #### 4 [id number] ####[facility] [address] [address] Davian Unger M.D. [id number] ALP [Catalytic activity/Vol] 82 U/L Normal 40-150 [facility] Comment on above: Order Comment: [facility] has implemented the eGFR calculation approach that does not have a coefficient for race that conforms to the NKF-ASN Task Force Recommendations. Performed By: #### 4 6126 ####[facility] [address] [address] Davian Unger M.D. [id number] ALT [Catalytic activity/Vol] 7 U/L Normal 0-35 U/L [facility] Comment on above: Order Comment: [facility] has implemented the eGFR calculation approach that does not have a coefficient for race that conforms to the NKF-ASN Task Force Recommendations. Performed By: #### 4 [id number] ####[facility] [address] [address] Davian Unger M.D. [id number] Anion gap [Moles/Vol] 18 mmol/L Normal 10-20 [facility] Comment on above: Order Comment: [facility] has implemented the eGFR calculation approach that does not have a coefficient for race that conforms to the NKF-ASN Task Force Recommendations. Performed By: #### 4 [id number] #### LAB [address] [address] Davian Unger M.D. [id number] AST [Catalytic activity/Vol] 17 U/L Normal 0-35 U/L [facility] Comment on above: Order Comment: [facility] has implemented the eGFR calculation approach that does not have a coefficient for race that conforms to the NKF-ASN Task Force Recommendations. Performed By: #### 4 6126 #### LAB [address] [address] Davian Unger M.D. [id number] Bilirubin [Mass/Vol] 0.6 mg/dL Normal 0.0-1.3 [facility] Comment on above: Order Comment: [facility] has implemented the eGFR calculation approach that does not have a coefficient for race that conforms to the NKF-ASN Task Force Recommendations. Performed By: #### 4 [id number] #### LAB [address] [address] Davian Unger M.D. [id number] Calcium [Mass/Vol] 9.4 mg/dL Normal 8.4-10.2 [facility] Comment on above: Order Comment: [facility] has implemented the eGFR calculation approach that does not have a coefficient for race that conforms to the NKF-ASN Task Force Recommendations. Performed By: #### 4 6126 #### LAB [address] [address] Davian Unger M.D. [id number] Chloride [Moles/Vol] 102 mmol/L Normal 98-108 [facility] Comment on above: Order Comment: [facility] has implemented the eGFR calculation approach that does not have a coefficient for race that conforms to the NKF-ASN Task Force Recommendations. Performed By: #### 4 6126 #### LAB [address] [place], [place] [address] Davian Unger M.D. [id number] Creatinine [Mass/Vol] 0.87 mg/dL Normal 0.60-1.10 [facility] Comment on above: Order Comment: [facility] has implemented the eGFR calculation approach that does not have a coefficient for race that conforms to the NKF-ASN Task Force Recommendations. Performed By: #### 4 6126 #### LAB [address] [address] Davian Unger M.D. [id number] EGFR 70 mL/min/1.73 m2 Normal >=60 [facility] Comment on above: Order Comment: [facility] has implemented the eGFR calculation approach that does not have a coefficient for race that conforms to the NKF-ASN Task Force Recommendations. Result Comment: Hayde mated GFR was calculated using the 2020 CKD-EPI creatinine equation. Performed By: #### 4 6126 #### LAB [address] [address] Davian Unger M.D. [id number] Glucose [Mass/Vol] 195 mg/dL High 65-99 [facility] Comment on above: Order Comment: [facility] has implemented the eGFR calculation approach that does not have a coefficient for race that conforms to the NKF-ASN Task Force Recommendations. Performed By: #### 4 6126 #### LAB [address] [address] Davian Unger M.D. [id number] HCO3 (Bld) [Moles/Vol] 23 mmol/L Normal 21-32 [facility] Comment on above: Order Comment: [facility] has implemented the eGFR calculation approach that does not have a coefficient for race that conforms to the NKF-ASN Task Force Recommendations. Performed By: #### 4 6126 #### LAB [address] [address] Davian Unger M.D. [id number] Potassium [Moles/Vol] 3.6 mmol/L Normal 3.5-5.1 [facility] Comment on above: Order Comment: [facility] has implemented the eGFR calculation approach that does not have a coefficient for race that conforms to the NKF-ASN Task Force Recommendations. Performed By: #### 4 6126 #### LAB [address] [address] Davian Unger M.D. [id number] Protein [Mass/Vol] 6.9 g/dL Normal 6.0-8.0 [facility] Comment on above: Order Comment: [facility] has implemented the eGFR calculation approach that does not have a coefficient for race that conforms to the NKF-ASN Task Force Recommendations. Performed By: #### 4 6126 #### LAB [address] [address] Davian Unger M.D. [id number] Sodium [Moles/Vol] 139 mmol/L Normal 135-145 [facility] Comment on above: Order Comment: [facility] has implemented the eGFR calculation approach that does not have a coefficient for race that conforms to the NKF-ASN Task Force Recommendations. Performed By: #### 4 6126 #### LAB [address] [address] Davian Unger M.D. [id number] Urea nitrogen [Mass/Vol] 12 mg/dL Normal 8-25 [facility] Comment on above: Order Comment: [facility] has implemented the eGFR calculation approach that does not have a coefficient for race that conforms to the NKF-ASN Task Force Recommendations. Performed By: #### 4 6126 #### LAB [address] [place], [place] [address] Davian Unger M.D. [id number] Urea nitrogen/Creatinine [Mass ratio] 13.8 mg/mg Normal 10.0-20.0 [facility] Comment on above: Order Comment: [facility] has implemented the eGFR calculation approach that does not have a coefficient for race that conforms to the NKF-ASN Task Force Recommendations. Performed By: #### 4 [id number] #### LAB [address] [place], [place] [address] Davian Unger M.D. [id number] CONSULTon 07-25-2024 CONSULT General Cardiology Inpatient Consult Heart & Vascular [facility] 07/25/2024 Gaurav Hidalgo MD [facility] Patient: Lola Drew Date of : 1950 (74 y.o.) Referring Provider: Refer to consult order in electronic medical record PCP: Saar Alvarez MD Assessment/Plan: Acute pulmonary embolism with moderately severe pulmonary hypertension COPD with exacerbation being treated as outpatient with antibiotics and steroids Problem List: As above Hyperlipidemia GERD Plan: 1. Patient is still short of breath but overall vital signs are stable, she has bilateral pulmonary emboli and is not a candidate for thrombectomy. Also she is not unstable as far as hemodynamically, her O2 saturation is 100% with the oxygen, heart rate 65 blood pressure 109/81, respirations 21. Considering the fact that her symptoms have been going on for couple weeks, it will take a few days of heparin infusion and anticoagulation, before she starts feeling better. 2. Continue current regimen and eventually switch to NOAC. Admitted with these risk variables:Pulmonary Hypertension. Please see assessment and plan for further details. Gaurav Hidalgo MD Non-Invasive Cardiology [facility] Heart and Vascular Subjective Reason for Consultation: Possible right ventricular strain from pulmonary embolism History of Present Illness: Lola Drew is a 74 y.o. female has been short of breath and coughing and had some cold and saw a cocoa press operator, they placed her on antibiotics and steroids and she got some better but she was still short of breath and got little worse again lately prior to admission. CTA showed pulmonary emboli bilaterally both lungs, there was no saddle embolus. This suggested right ventricular strain. The echocardiogram was performed which I reviewed shows hyperdynamic left ventricle with ejection fraction greater than 65 to 70%,. and moderately severe pulmonary hypertension, PA and RV systolic pressure around 69 mm. This is evidently from pulmonary emboli and underlying COPD. Imaging: I independently reviewed the EKG and agree with the interpretation(s) with the following comments. Sinus rhythm, normal ECG Review of Systems: Constitution: Negative. HENT: Negative. Cardiovascular: As above. Respiratory: As above. Endocrine: Negative. Skin: Negative. Musculoskeletal: Negative. Gastrointestinal: Negative. Genitourinary: Negative. Neurological: Negative. Psychiatric/Behavioral : Negative. Past Medical History: Diagnosis Date Asthma Bronchitis Colitis COPD (chronic obstructive pulmonary disease) (HCC) Depression GERD (gastroesophageal reflux disease) Hypercholesterolemia Insomnia Obstructive sleep apnea Osteopenia Vitamin D deficiency Past Surgical History: Procedure Laterality Date APPENDECTOMY CT COLONOSCOPY 05/18/2019 CT COLONOSCOPY FINGER SURGERY Bilateral 11/03/2009 thumb FOOT SURGERY HYSTERECTOMY (CERVIX REMAINS) TONSILLECTOMY AND ADENOIDECTOMY Family History Problem Relation Age of Onset Heart attack Father age 54 Asthma Father Cancer Father age 48 Social History Tobacco Use Smoking Status Former Current packs/day: 0.00 Average packs/day: 1 pack/day for 44.0 years (44.0 ttl pk-yrs) Types: Cigarettes Start date: 03/03/1971 Quit date: 03/03/2015 Years since quittin.4 Smokeless Tobacco Not on file Tobacco Comments 1 ppd for 44 years, quit March 2015 Allergies: Amoxicillin, Bee venom protein (honey bee), Sulfa (sulfonamide antibiotics), and Penicillins Current Facility-Administered Medications Medication Dose Route Frequency Provider Last Rate Last Admin acetaminophen (TYLENOL) tablet 650 mg 650 mg Oral Q4H PRN Byron Escobar MD 650 mg at 07/25/24 1150 albuterol inhaler 2 puff 2 puff Inhalation Q6H PRN Byron Escobar MD buPROPion (WELLBUTRIN XL) 24 hr tablet 300 mg 300 mg Oral Daily Byron Escobar MD 300 mg at 07/25/24 0932 docusate sodium (COLACE) capsule 100 mg 100 mg Oral Daily Byron Escobar MD 100 mg at 07/25/24 0933 DULoxetine (CYMBALTA) DR capsule 90 mg 90 mg Oral Daily Bee Mcguire MD 90 mg at 07/25/24 0933 furosemide (LASIX) tablet 40 mg 40 mg Oral BID Byron Escobar MD 40 mg at 07/25/24 0932 heparin (porcine) 25,000 unit/250 mL(100 unit/mL) in D5W infusion 0-70 Units/kg/hr Intravenous Continuous Byron Escobar MD 15.2 mL/hr at 07/25/24 1217 14 Units/kg/hr at 07/25/24 1217 heparin bolus from bag 0-10,000 Units 0-10,000 Units Intravenous Continuous PRN Byron Escobar MD levothyroxine (SYNTHROID, LEVOTHROID) tablet 75 mcg 75 mcg Oral Daily Byron Escobar MD 75 mcg at 07/25/24 0933 meclizine (ANTIVERT) tablet 25 mg 25 mg Oral TID PRN Byron Escobar MD melatonin Tab 10 mg 10 mg Oral Nightly PRN Byron Escobar MD tiotropium bromide (SPIRIVA RESPIMAT) 2.5 mcg/actuation inhaler 2 puff 2 puff (more content not included)... Normal [facility] ECHOCARDIOGRAM COMPLETE W CO NTRASTon 07-25-2024 ECHOCARDIOGRAM COMPLETE W CONTRAST Patient Info Name: LOLA DREW Age: 74 years : 1950 Gender: Female Ht: 163 cm Wt: 107 kg BSA: 2.25 m2 HR: 68 bpm BP: 103 / 75 mmHg Heart Rhythm: Sinus Rhythm Technical Quality: Poor Exam Date: 07/25/2024 10:53 AM Patient Status: Inpatient Washer Off: Sarah Humphrey RCDS Exam Type: ECHOCARDIOGRAM COMPLETE W CONTRAST Study Info Indications R06.00 - Dyspnea, unspecified Referring Physician: BOBY AVILES ; [id number] Reason for Poor Study: poor echocardiographic windows BMI: 40.34 kg/m2 Summary 1. This study was technically limited, Definity IV contrast was used to enhance endocardial definition. 2. RV appears enlarged with reduced RV function. 3. Left ventricular systolic function is hyperdynamic with an ejection fraction by Biplane Method of Discs of 81 %. 4. The left ventricular diastolic function is normal. 5. There is mild tricuspid valve regurgitation. 6. There is pulmonary hypertension, estimated right ventricle systolic pressure is 68 mmHg. History/Risk Factors Dyslipidemia: Yes Obesity: Yes COPD: On Meds Tobacco Use: Former Family History: Coronary Artery Disease History/Risk Factors Pulmonary embolism. Procedure(s): Complete two-dimensional, color flow and Doppler transthoracic echocardiogram is performed. Definity explained to patient. Patient verbalizes understanding and agrees to proceed. Definity 1.3ml/8.7ml normal sterile saline 2 ml total given IV over 30-60 seconds. Left Ventricle Left ventricular chamber dimension is normal. Left ventricular systolic function is hyperdynamic with an ejection fraction by Biplane Method of Discs of 81 %. Normal left ventricular mass. Left ventricular segmental wall motion is normal. The left ventricular diastolic function is normal. Right Ventricle RV appears enlarged with reduced RV function. Left Atria Left atrial chamber is normal with a left atrial volume index of 26 ml/m2 by BP MOD. Right Atria Right atrial chamber dimension is normal. Aortic Valve The aortic valve is trileaflet. There is no aortic valve sclerosis. There is no aortic valve stenosis. There is no aortic valve regurgitation. Pulmonic Valve The pulmonic valve is normal. There is no pulmonic valve stenosis. There is no pulmonic regurgitation. Mitral Valve The mitral valve has normal leaflets. There is no mitral valve stenosis. There is trace mitral valve regurgitation. Tricuspid Valve The tricuspid valve leaflets are normal. There is no significant tricuspid valve stenosis. There is mild tricuspid valve regurgitation. There is pulmonary hypertension, estimated right ventricle systolic pressure is 68 mmHg. Pericardium/Pleural There is no pericardial effusion. Inferior Vena Cava Normal inferior vena cava with >50% collapse upon inspiration consistent with normal right atrial pressure. Aorta The aortic measurements are indexed to age and body surface area. The aortic root is normal measuring 3.1 cm with an index of 1.4 cm/m2. The proximal ascending aorta is normal measuring 3.2 cm with an index of 1.4 cm/m2. Wall Motion Scoring Wall Motion Scoring Index: 1.00 Left Ventricular Outflow Tract ---- Name Value Normal ---- LVOT 2D ---- LVOT Diameter 2.1 cm LVOT Doppler ---- LVOT Peak Velocity 1.5 m/s LVOT Peak Gradient 7 mmHg LVOT Mean Gradient 3 mmHg LVOT VTI 30 cm LVOT VTI/AV VTI Ratio 0.7 LVOT Stroke Volume 99 ml LVOT Stroke Index 44.18 ml/m2 Pulmonic Valve ---- Name Value Normal ---- RVOT Doppler ---- RVOT Peak Velocity 58 cm/s RVOT Peak Gradient 1 mmHg RVOT Mean Gradient 1 mmHg RVOT VTI 12 cm PV Doppler ---- PV Peak Velocity 1.10 m/s PV Peak Gradient 5 mmHg PV Mean Gradient 2 mmHg PV VTI 23 cm Mitral Valve ---- Name Value Normal ---- MV Doppler ---- MV Peak Velocity 0.86 m/s MV Peak Gradient 3 mmHg MV Mean Gradient 1 mmHg MV VTI 27 cm MV Decel Person 258 cm/s2 MV PHT 76 ms MV Area (PHT) 2.9 cm2 4.0-5.0 MV Area (Cont Eq VTI) 3.7 cm2 MV Area Index (Cont Eq VTI) 1.66 cm2/m2 MV DVI 0.89 MV Diastolic Function (more content not included)... Normal [facility] HEMOGLOBIN A1Con 07-25-2024 Glucose [Mass/Vol] 117 mg/dL High 74-114 [facility] Comment on above: Performed By: #### L [id number] #### [facility] [address] [place], [place] [address] Davian Unger M.D. [id number] HbA1c (Bld) [Mass fraction] 5.7 % High 4.2-5.6 [facility] Comment on above: Performed By: #### L [id number] #### [facility] [address] [address] Davian Unger M.D. [id number] TROPONINon 07-25-2024 TROPONIN T DELTA % NG/L -24 % Off scale low <20% of Baseline Troponin [facility] Comment on above: Performed By: #### L [id number] #### [facility] [address] [address] Davian Unger M.D. [id number] TROPONIN T DELTA CHANGE INTERPRETATION Probable acute injury or myocardial infarction. [facility] Comment on above: Performed By: #### L [id number] #### [facility] [address] [address] Davian Unger M.D. [id number] TROPONIN T NG/L 31 ng/L Off scale high <=14 [facility] Comment on above: Performed By: #### L [id number] #### [facility] [address] [address] Davian Unger M.D. [id number] BASELINE TROPONIN T NG/L 41 ng/L Off scale high <=14 [facility] Comment on above: Performed By: #### L [id number] #### [facility] [address] [address] Davian Unger M.D. [id number] TROPONIN T INTERPRETATION Possible acute cardiac injury. [facility] Comment on above: Performed By: #### L [id number] #### [facility] [address] [place] [address] Davian Unger M.D. [id number] COVID-19, MOLECULARon 2023 SARS-CoV-2 (COVID-19) Ab IA Ql Not detected Normal Not Detected [facility] Comment on above: Result Comment: Test ing was performed using the Felix ID NOW COVID-19 assay on the ID NOW platform. This test has not been approved for use in asymptomatic patients and its performance in this patient population has not been evaluated. Negative results do not rule out the presence of SARS-CoV-2/COVID-19. CT PULMONARY ARTERIESon 07-05 CT PULMONARY ARTERIES EXAMINATION: CT PULMONARY ARTERIES HISTORY: ORDERING SYSTEM PROVIDED HISTORY: Pulmonary embolism (PE) suspected, high prob, TECHNOLOGIST PROVIDED HISTORY: Illness/Other Reason for exam: shortness of breath Encounter Type: Initial Additional signs and symptoms: shortness of breath ORDERING SYSTEM PROVIDED DIAGNOSIS CODES: COMPARISON: CTA chest 09/26/2008. CT chest 12/08/2008. TECHNIQUE: CT angiography of the pulmonary arteries following the administration of intravenous contrast. Coronal and sagittal MIP images were performed. Dose reduction techniques were achieved by using automated exposure control and/or adjustment of mA and/or kV according to patient size and/or use of iterative reconstruction technique. CONTRAST: IOPAMIDOL 370 MG IODINE/ML (76 %) INTRAVENOUS SOLUTION - 75 mL, FINDINGS: Motion limits airway assessment, but does appear to be some narrowing in the right lower lobe bronchial tree possibly debris related, but nonspecific. The lungs appear heterogeneous with some paraseptal emphysema versus air trapping in the upper lobes posteriorly. There are coarse ground-glass areas in both lungs, progressive from prior study and this could represent acute changes or progressive chronic disease. There are bilateral extensive lower lobe pulmonary emboli as well as emboli within the right middle lobe and left upper lobe. Probable small emboli right upper lobe. Evidence of at least mild right heart strain. There is aortic calcification. No pericardial effusion. Small stone in the gallbladder noted. No gross mediastinal or hilar adenopathy. There are degenerative changes throughout the thoracic spine. Results discussed with Dr. Aviles in the emergency department during dictation. IMPRESSION: Extensive bilateral pulmonary emboli with suggestion of at least mild right heart strain. Heterogeneous lungs suggesting air trapping versus ground-glass infiltrates or progressive heterogeneous fibrotic lung disease. The upper lobe shows some peripheral areas of air-trapping versus emphysema. Cholelithiasis. BJW/jcw Workstation ID: [id number] Dictated by: KIERAN ALTMAN on Sat Jul 24, 2024 7:27:24 PM EDT Transcribed by: XOCHILT REYNOSO on Sat Jul 24, 2024 7:57:59 PM EDT Finalized by: KIERAN ALTMAN on Sat Jul 24, 2024 8:02:19 PM EDT [facility] Comment on above: Order Comment: Injur y/Trauma or Illness?:Illness/Other How long have you had these symptoms (acute/chronic)?:Acute Reason for exam?:COPD with acute exacerbation History of cancer?:no Surgeries, chemotherapy, or radiation?:appendix, tonsils Type of Exam?:Initial Additional signs and symptoms?:productive cough x 3 weeks, sob ED Prov Noteon 07-24-2024 ED Prov Note ED PROVIDER NOTE [facility] EMERGENCY [facility]PART[facility] NAME: Lola Drew AGE: 74 y.o. : 1950 VISIT DATE: 07/24/2024 CSN: [id number] PCP: Sara Alvarez MD Chief Complaint Patient presents with Shortness of Breath Patient is a 74-year-old female with past medical history of asthma, COPD, depression, GERD, hypercholesterolemia, sleep apnea and vitamin D deficiency who presents today for concern of shortness of breath and cough. Patient states she does not wear oxygen at home. Patient states last month she has had worsening of her chronic smoker's cough. Patient states she was placed on doxycycline 2 weeks prior and has been off antibiotics for last week. Patient states over the last week she has had worsening with a productive cough but denies any significant chest pain, abdominal pain, back pain, history of DVT/PE, lightheadedness, dizziness or syncope. Patient admits to associated shortness of breath with exertion. Patient mitts to sick contacts are patient eating and drinking normally. Past Medical History: Diagnosis Date Asthma Bronchitis Colitis COPD (chronic obstructive pulmonary disease) (HCC) Depression GERD (gastroesophageal reflux disease) Hypercholesterolemia Insomnia Obstructive sleep apnea Osteopenia Vitamin D deficiency Past Surgical History: Procedure Laterality Date APPENDECTOMY CT COLONOSCOPY 05/18/2019 CT COLONOSCOPY FINGER SURGERY Bilateral 11/03/2009 thumb FOOT SURGERY HYSTERECTOMY (CERVIX REMAINS) TONSILLECTOMY AND ADENOIDECTOMY Family History Problem Relation Age of Onset Heart attack Father age 54 Asthma Father Cancer Father age 48 Social History Socioeconomic History Marital status: Occupational History Employer: [employer] Tobacco Use Smoking status: Former Current packs/day: 0.00 Average packs/day: 1 pack/day for 44.0 years (44.0 ttl pk-yrs) Types: Cigarettes Start date: 03/03/1971 Quit date: 03/03/2015 Years since quittin.4 Tobacco comments: 1 ppd for 44 years, quit March 2015 Vaping Use Vaping status: Every Day Substances: Nicotine, Flavoring Devices: Disposable Substance and Sexual Activity Alcohol use: Not Currently Comment: 1 drink per week Drug use: No Previous Medications Medication Sig albuterol 90 mcg/actuation inhaler Inhale 2 (two) puffs every 6 (six) hours as needed for wheezing . buPROPion (WELLBUTRIN XL) 300 MG 24 hr tablet Take 1 (one) tablet (300 mg total) by mouth daily . calcium carbonate-vitamin D3 600 mg-20 mcg (800 unit) Tab Take 1 tablet by mouth . clobetasoL (TEMOVATE) 0.05 % scalp solution cyanocobalamin, vitamin B-12, 2,500 mcg Tab Take 1 (one) tablet (2,500 mcg total) by mouth . DULoxetine (CYMBALTA) 30 MG capsule Take 1 (one) capsule (30 mg total) by mouth daily Total of 90 mg with 60 mg prescription . DULoxetine (CYMBALTA) 60 MG capsule fexofenadine (ARIELLA) 180 MG tablet Take 1 (one) tablet (180 mg total) by mouth . fluconazole (DIFLUCAN) 100 MG tablet Take 1 (one) tablet (100 mg total) by mouth daily . fluticasone propionate (FLONASE) 50 mcg/actuation nasal spray Instill 1 (one) spray into each nostril daily . fluticasone-umeclidin- vilanter (Trelegy Ellipta) 200-62.5-25 mcg DsDv Inhale 1 puff daily . furosemide (LASIX) 40 MG tablet Take 1 (one) tablet (40 mg total) by mouth 2 (two) times a day . ipratropium-albuteroL (DUO-NEB) 0.5-2.5 mg/3 ml nebulizer Take 3 mL by nebulization 3 (three) times a day . levothyroxine (SYNTHROID, LEVOTHROID) 75 MCG tablet Take 1 (one) tablet (75 mcg total) by mouth daily . meclizine (ANTIVERT) 25 mg tablet Take 1 (one) tablet (25 mg total) by mouth 3 (three) times a day as needed for nausea . montelukast (SINGULAIR) 10 mg tablet Take 1 tablet (10 mg total) by mouth daily. NONFORMULARY CPAP 9cm H20 (DASCO) in [facility] ondansetron (ZOFRAN-ODT) 4 MG disintegrating tablet Dissolve 1 (one) tablet (4 mg total) on top of tongue every 6 to 8 hours as needed for nausea . pantoprazole (PROTONIX) 40 MG tablet Take by mouth . simvastatin (ZOCOR) 40 MG tablet Take 1 (one) tablet (40 mg total) by mouth daily . SUMAtriptan (IMITREX) 50 MG tablet Take 1 (one) tablet (50 mg total) by mouth every 2 (two) hours as needed for migraine Max of 200 mg in 24hrs, do not treat more than 3 times a week . Allergies Allergen Reactions Amoxicillin Bee Venom Protein (Honey Bee) Swelling Sulfa (Sulfonamide Antibiotics) Penicillins Rash Review of Systems Constitutional: Negative for chills and fever. Eyes: Negative for pain. Respiratory: Positive for cough, chest tightness and shortness of breath. Cardiovascular: Positive for chest pain. Negative for palpitations. Gastrointestinal: Negative for abdominal pain, nausea and vomiting. Genitourinary: Negative for flank pain. Musculoskeletal: Negative for arthralgias and (more content not included)... Normal [facility] POC B-TYPE NATRIURETIC PEPTI DE (BNP) - Espinoza 07-24-2024 Natriuretic peptide B (Bld) [Mass/Vol] 31.3 pg/mL Normal <100 [facility] POC CBC AND DIFFERENTIALon 0 07-24-2024 BASOPHILS ABSOLUTE COUNT 0.03 K/mcL Normal 0.00-0.30 [facility] Basophils/100 WBC (Bld) 0.3 % Normal [facility] Eosinophils (Bld) [#/Vol] 0.19 10*3/uL Normal 0.00-0.50 [facility] Eosinophils/100 WBC (Bld) 2.1 % Normal [facility] Erythrocyte distribution width (RBC) [Ratio] 13.5 % Normal 11.6-14.8 [facility] Hematocrit (Bld) [Volume fraction] 42.5 % Normal 36.0-46.0 [facility] Hemoglobin (Bld) [Mass/Vol] 14.3 g/dL Normal 12.0-16.0 [facility] IG ABSOLUTE 0.01 K/mcL Normal 0.00-0.30 [facility] IG PERCENT 0.10 % Normal [facility] Comment on above: Result Comment: The IG parameter is the percentage of metamyelocytes, myelocytes and promyelocytes. An immature granulocyte count (IG) of 1% or more suggests the possibility of infection, an IG count of 3% is very likely related to an infection. Lymphocytes (Bld) [#/Vol] 2.04 10*3/uL Normal 0.90-4.00 [facility] Lymphocytes/100 WBC (Bld) 22.1 % Normal [facility] MCH (RBC) [Entitic mass] 31.0 pg Normal 26.0-34.0 [facility] MCV (RBC) [Entitic vol] 92.0 fL Normal 80.0-100.0 [facility] MEAN CORPUSCULAR HEMOGLOBIN CONC 33.6 g/dL Normal 31.0-37.0 [facility] Monocytes (Bld) [#/Vol] 0.60 10*3/uL Normal 0.30-0.90 [facility] Monocytes/100 WBC (Bld) 6.5 % Normal [facility] NEUTROPHILS ABSOLUTE COUNT 6.38 K/mcL Normal 1.70-7.00 [facility] Neutrophils/100 WBC (Bld) 68.9 % Normal [facility] Platelet mean volume (Bld) [Entitic vol] 10.7 fL Normal 9.4-12.4 [facility] Platelets (Bld) [#/Vol] 169 10*3/uL Normal 150-400 [facility] RBC (Bld) [#/Vol] 4.62 10*6/uL Normal 4.00-5.20 [facility] WBC (Bld) [#/Vol] 9.25 10*3/uL Normal 4.50-11.00 [facility] POC D-DIMER [facility] 4 POC D-DIMER 2730 ng/mL DDU High <350 [facility] Comment on above: Order Comment: Injur y/Trauma or Illness?:Illness/Other How long have you had these symptoms (acute/chronic)?:Acute Reason for exam?:COPD with acute exacerbation History of cancer?:no Surgeries, chemotherapy, or radiation?:appendix, tonsils Type of Exam?:Initial Additional signs and symptoms?:productive cough x 3 weeks, sob POC INFLUENZA A/B - [facility] 0 07-24-2024 POC INFLUENZA A (FSED) Not detected Normal Not Detected [facility] POC INFLUENZA B (FSED) Not detected Normal Not Detected [facility] POC PT-INR - [facility] 07-24-20 24 POC INR (SIG ELITE) 0.9 Normal 0.8-1.1 [facility] POC TROPONIN I [facility] 2023 Troponin I.cardiac [Mass/Vol] 0.06 ng/mL Off scale high <0.05 [facility] Comment on above: Order Comment: Criti misti result acted upon time of test. Test performed at bedside. POC VBG (EPOC) WITH FULL CASANOVA EL - [facility] 07-24-2024 BASE EXCESS, VENOUS 3.8 High -2.0-2.0 [facility] Comment on above: Order Comment: [facility] has implemented the eGFR calculation approach that does not have a coefficient for race that conforms to the NKF-ASN Task Force Recommendations. Specimens collected in a lithium heparin tube may show erroneous pO2, pCO2 and related calculations due to aerobic handling. If the most accurate venous blood gas results are needed, use a heparinized blood gas syringe. CALCIUM IONIZED 4.8 mg/dL Normal 4.5-5.3 [facility] Comment on above: Order Comment: [facility] has implemented the eGFR calculation approach that does not have a coefficient for race that conforms to the NKF-ASN Task Force Recommendations. Specimens collected in a lithium heparin tube may show erroneous pO2, pCO2 and related calculations due to aerobic handling. If the most accurate venous blood gas results are needed, use a heparinized blood gas syringe. Chloride [Moles/Vol] 103 mmol/L Normal 98-108 [facility] Comment on above: Order Comment: [facility] has implemented the eGFR calculation approach that does not have a coefficient for race that conforms to the NKF-ASN Task Force Recommendations. Specimens collected in a lithium heparin tube may show erroneous pO2, pCO2 and related calculations due to aerobic handling. If the most accurate venous blood gas results are needed, use a heparinized blood gas syringe. Creatinine [Mass/Vol] 0.85 mg/dL Normal 0.60-1.20 [facility] Comment on above: Order Comment: [facility] has implemented the eGFR calculation approach that does not have a coefficient for race that conforms to the NKF-ASN Task Force Recommendations. Specimens collected in a lithium heparin tube may show erroneous pO2, pCO2 and related calculations due to aerobic handling. If the most accurate venous blood gas results are needed, use a heparinized blood gas syringe. Glucose [Mass/Vol] 114 mg/dL High 65-99 [facility] Comment on above: Order Comment: [facility] has implemented the eGFR calculation approach that does not have a coefficient for race that conforms to the NKF-ASN Task Force Recommendations. Specimens collected in a lithium heparin tube may show erroneous pO2, pCO2 and related calculations due to aerobic handling. If the most accurate venous blood gas results are needed, use a heparinized blood gas syringe. HCO3 (Bld) [Moles/Vol] 28.9 mmol/L High 24.0-28.0 [facility] Comment on above: Order Comment: [facility] has implemented the eGFR calculation approach that does not have a coefficient for race that conforms to the NKF-ASN Task Force Recommendations. Specimens collected in a lithium heparin tube may show erroneous pO2, pCO2 and related calculations due to aerobic handling. If the most accurate venous blood gas results are needed, use a heparinized blood gas syringe. Hematocrit (Bld) [Volume fraction] 45 % Normal 36-46 [facility] Comment on above: Order Comment: [facility] has implemented the eGFR calculation approach that does not have a coefficient for race that conforms to the NKF-ASN Task Force Recommendations. Specimens collected in a lithium heparin tube may show erroneous pO2, pCO2 and related calculations due to aerobic handling. If the most accurate venous blood gas results are needed, use a heparinized blood gas syringe. HEMOGLOBIN, CALCULATED 15.3 g/dL Normal 12.0-16.0 [facility] Comment on above: Order Comment: [facility] has implemented the eGFR calculation approach that does not have a coefficient for race that conforms to the NKF-ASN Task Force Recommendations. Specimens collected in a lithium heparin tube may show erroneous pO2, pCO2 and related calculations due to aerobic handling. If the most accurate venous blood gas results are needed, use a heparinized blood gas syringe. O2 SATURATION VENOUS Normal [facility] Comment on above: Order Comment: [facility] has implemented the eGFR calculation approach that does not have a coefficient for race that conforms to the NKF-ASN Task Force Recommendations. Specimens collected in a lithium heparin tube may show erroneous pO2, pCO2 and related calculations due to aerobic handling. If the most accurate venous blood gas results are needed, use a heparinized blood gas syringe. Result Comment: Resu lt unable to be determined. PCO2 VENOUS 43.9 mm Hg Normal 41.0-51.0 [facility] Comment on above: Order Comment: [facility] has implemented the eGFR calculation approach that does not have a coefficient for race that conforms to the NKF-ASN Task Force Recommendations. Specimens collected in a lithium heparin tube may show erroneous pO2, pCO2 and related calculations due to aerobic handling. If the most accurate venous blood gas results are needed, use a heparinized blood gas syringe. PH VENOUS 7.43 High 7.32-7.42 [facility] Comment on above: Order Comment: [facility] has implemented the eGFR calculation approach that does not have a coefficient for race that conforms to the NKF-ASN Task Force Recommendations. Specimens collected in a lithium heparin tube may show erroneous pO2, pCO2 and related calculations due to aerobic handling. If the most accurate venous blood gas results are needed, use a heparinized blood gas syringe. PO2 VENOUS < Low 25-40 [facility] Comment on above: Order Comment: [facility] has implemented the eGFR calculation approach that does not have a coefficient for race that conforms to the NKF-ASN Task Force Recommendations. Specimens collected in a lithium heparin tube may show erroneous pO2, pCO2 and related calculations due to aerobic handling. If the most accurate venous blood gas results are needed, use a heparinized blood gas syringe. POC GFR 72 mL/min/1.73 m2 Normal >=60 [facility] Comment on above: Order Comment: [facility] has implemented the eGFR calculation approach that does not have a coefficient for race that conforms to the NKF-ASN Task Force Recommendations. Specimens collected in a lithium heparin tube may show erroneous pO2, pCO2 and related calculations due to aerobic handling. If the most accurate venous blood gas results are needed, use a heparinized blood gas syringe. Result Comment: Hayde mated GFR was calculated using the 2020 CKD-EPI creatinine equation. POC LACTATE 1.0 mmol/L Normal 0.6-2.0 [facility] Comment on above: Order Comment: [facility] has implemented the eGFR calculation approach that does not have a coefficient for race that conforms to the NKF-ASN Task Force Recommendations. Specimens collected in a lithium heparin tube may show erroneous pO2, pCO2 and related calculations due to aerobic handling. If the most accurate venous blood gas results are needed, use a heparinized blood gas syringe. Potassium [Moles/Vol] 3.4 mmol/L Low 3.5-5.1 [facility] Comment on above: Order Comment: [facility] has implemented the eGFR calculation approach that does not have a coefficient for race that conforms to the NKF-ASN Task Force Recommendations. Specimens collected in a lithium heparin tube may show erroneous pO2, pCO2 and related calculations due to aerobic handling. If the most accurate venous blood gas results are needed, use a heparinized blood gas syringe. Sodium [Moles/Vol] 144 mmol/L Normal 135-145 [facility] Comment on above: Order Comment: [facility] has implemented the eGFR calculation approach that does not have a coefficient for race that conforms to the NKF-ASN Task Force Recommendations. Specimens collected in a lithium heparin tube may show erroneous pO2, pCO2 and related calculations due to aerobic handling. If the most accurate venous blood gas results are needed, use a heparinized blood gas syringe. Urea nitrogen [Mass/Vol] 11 mg/dL Normal 8-25 [facility] Comment on above: Order Comment: [facility] has implemented the eGFR calculation approach that does not have a coefficient for race that conforms to the NKF-ASN Task Force Recommendations. Specimens collected in a lithium heparin tube may show erroneous pO2, pCO2 and related calculations due to aerobic handling. If the most accurate venous blood gas results are needed, use a heparinized blood gas syringe. XR CHEST PA/APon 07-24-2024 XR CHEST PA/AP EXAMINATION: XR CHEST PA/AP HISTORY: ORDERING SYSTEM PROVIDED HISTORY: shortness of breath, TECHNOLOGIST PROVIDED HISTORY: Illness/Other Reason for exam: continued sob and cough that has become painful over the last few days recent COPD exacerbation no relief of symptoms Cancer History: no Surgery, RadiationHistory: appendix, tonsils Encounter Type: Initial Additional signs and symptoms: na ORDERING SYSTEM PROVIDED DIAGNOSIS CODES: COMPARISON: 04/12/2024 FINDINGS: One-view chest x-ray. Heart size is within the upper limits of normal. Saba appear somewhat prominent as well as soft tissue prominence in the upper mediastinum. These have become more prominent since last exam, follow-up chest PA and lateral radiographs are recommended and if this persists, chest CT can be considered for further assessment. There is some hyperinflation. No focal consolidations. IMPRESSION: Increased hilar fullness especially on the right side and increased soft tissue density in the superior mediastinum to the right of the trachea, follow-up chest PA and lateral radiograph is recommended and if needed, chest CT can be considered at that time for further assessment. Workstation ID: [id number] Dictated by: CJ DE SOUZA on [facility] Jul 24, 2024 6:34:27 PM EDT Transcribed by: CJ DE SOUZA on [facility] Jul 24, 2024 6:34:27 PM EDT Finalized by: CJ DE SOUZA on [facility] Jul 24, 2024 6:34:27 PM EDT [facility] Comment on above: Order Comment: Injur y/Trauma or Illness?:Illness/Other How long have you had these symptoms (acute/chronic)?:Acute Reason for exam?:COPD with acute exacerbation History of cancer?:no Surgeries, chemotherapy, or radiation?:appendix, tonsils Type of Exam?:Initial Additional signs and symptoms?:productive cough x 3 weeks, sob CBC WITH AUTO DIFFERENTIALon 04-12-2024 AUTO NRBC 0.0 % [facility] Comment on above: Performed By: #### L [id number] #### [facility] [address] [address] Davian Unger M.D. [id number] AUTO NRBC ABS COUNT 0.00 K/mcL Normal 0.00-0.00 [facility] Comment on above: Performed By: #### L [id number] #### [facility] [address], [place] [address] Davian Unger M.D. [id number] BASOPHILS ABSOLUTE COUNT 0.06 K/mcL Normal 0.00-0.30 [facility] Comment on above: Performed By: #### L [id number] #### [facility] [address], [place] [address] Davian Unger M.D. [id number] Basophils/100 WBC (Bld) 0.9 % [facility] Comment on above: Performed By: #### L [id number] #### [facility] [address] [place] [id number] Davian Unger M.D. [id number] Eosinophils (Bld) [#/Vol] 0.22 10*3/uL Normal 0.00-0.50 [facility] Comment on above: Performed By: #### L [id number] #### LAB [address] [address] Davian Unger M.D. [id number] Eosinophils/100 WBC (Bld) 3.4 % Normal [facility] Comment on above: Performed By: #### L [id number] #### LAB [address] [address] Davian Unger M.D. [id number] Erythrocyte distribution width (RBC) [Ratio] 13.4 % Normal 11.6-14.8 [facility] Comment on above: Performed By: #### L [id number] #### LAB [address] [address] Davian Unger M.D. [id number] Hematocrit (Bld) [Volume fraction] 40.8 % Normal 36.0-46.0 [facility] Comment on above: Performed By: #### L [id number] #### LAB [address] [address] Davian Unger M.D. [id number] Hemoglobin (Bld) [Mass/Vol] 13.9 g/dL Normal 12.0-16.0 [facility] Comment on above: Performed By: #### L [id number] #### LAB [address] [address] Davian Unger M.D. [id number] IG ABSOLUTE 0.02 K/mcL Normal 0.00-0.30 [facility] Comment on above: Performed By: #### L [id number] #### LAB [address] [place] [address] Davian Unger M.D. [id number] IG PERCENT 0.30 % Normal [facility] Comment on above: Result Comment: The IG parameter is the percentage of metamyelocytes, myelocytes and promyelocytes. An immature granulocyte count (IG) of 1% or more suggests the possibility of infection, an IG count of 3% is very likely related to an infection. Performed By: #### L [id number] #### LAB [address] [address] Davian Unger M.D. [id number] Lymphocytes (Bld) [#/Vol] 1.86 10*3/uL Normal 0.90-4.00 [facility] Comment on above: Performed By: #### L [id number] #### LAB [address] [address] Davian Unger M.D. [id number] Lymphocytes/100 WBC (Bld) 28.6 % Normal [facility] Comment on above: Performed By: #### L [id number] #### LAB [address] [address] Davian Unger M.D. [id number] MCH (RBC) [Entitic mass] 31.0 pg Normal 26.0-34.0 [facility] Comment on above: Performed By: #### L [id number] #### LAB [address] [address] Davian Unger M.D. [id number] MCV (RBC) [Entitic vol] 91.1 fL Normal 80.0-100.0 [facility] Comment on above: Performed By: #### L [id number] #### LAB [address] [place] [address] Davian Unger M.D. [id number] MEAN CORPUSCULAR HEMOGLOBIN CONC 34.1 g/dL Normal 31.0-37.0 [facility] Comment on above: Performed By: #### L [id number] #### MH LAB [address] [address] Davian Unger M.D. [id number] Monocytes (Bld) [#/Vol] 0.41 10*3/uL Normal 0.30-0.90 [facility] Comment on above: Performed By: #### L [id number] #### LAB [address] [place] [address] Davian Unger M.D. [id number] Monocytes/100 WBC (Bld) 6.3 % Normal [facility] Comment on above: Performed By: #### L [id number] #### LAB [address] [address] [address] Davian Unger M.D. [id number] NEUTROPHILS ABSOLUTE COUNT 3.93 K/mcL Normal 1.70-7.00 [facility] Comment on above: Performed By: #### L [id number] #### LAB [address] [address] Davian Unger M.D. [id number] Neutrophils/100 WBC (Bld) 60.5 % Normal [facility] Comment on above: Result Comment: Christina pheral smear reviewed manually Performed By: #### L [id number] #### LAB [address] [address] Davian Unger M.D. [id number] Platelet mean volume (Bld) [Entitic vol] 12.0 fL Normal 9.4-12.4 [facility] Comment on above: Performed By: #### L [id number] #### LAB [address] [address] Davian Unger M.D. [id number] Platelets (Bld) [#/Vol] 145 10*3/uL Low 150-400 [facility] Comment on above: Result Comment: Plat elets clumped on smear but appear normal. If clinically indicated, please request a citrate platelet count Performed By: #### L [id number] #### LAB [address] [address] Davian Unger M.D. [id number] RBC (Bld) [#/Vol] 4.48 10*6/uL Normal 4.00-5.20 [facility] Comment on above: Performed By: #### L [id number] #### LAB [address] [address] Davian Unger M.D. [id number] WBC (Bld) [#/Vol] 6.50 10*3/uL Normal 4.50-11.00 [facility] Comment on above: Performed By: #### L [id number] #### LAB [address] [address] Davian Unger M.D. [id number] COMPREHENSIVE METABOLIC PANE [employer] 04-12-2024 Albumin [Mass/Vol] 4.3 g/dL Normal 3.2-5.2 [facility] Comment on above: Order Comment: [facility] has implemented the eGFR calculation approach that does not have a coefficient for race that conforms to the NKF-ASN Task Force Recommendations. Performed By: #### L [id number] #### LAB [address] [address] Davian Unger M.D. [id number] ALP [Catalytic activity/Vol] 86 U/L Normal 40-150 [facility] Comment on above: Order Comment: [facility] has implemented the eGFR calculation approach that does not have a coefficient for race that conforms to the NKF-ASN Task Force Recommendations. Performed By: #### L [id number] #### MH LAB [address] [address] Davian Unger M.D. [id number] ALT [Catalytic activity/Vol] 13 U/L Normal 0-35 U/L [facility] Comment on above: Order Comment: [facility] has implemented the eGFR calculation approach that does not have a coefficient for race that conforms to the NKF-ASN Task Force Recommendations. Performed By: #### L [id number] #### MH LAB [address] [address] Davian Unger M.D. [id number] Anion gap [Moles/Vol] 17 mmol/L Normal 10-20 [facility] Comment on above: Order Comment: [facility] has implemented the eGFR calculation approach that does not have a coefficient for race that conforms to the NKF-ASN Task Force Recommendations. Performed By: #### L [id number] #### MH LAB [address] [address] Davian Unger M.D. [id number] AST [Catalytic activity/Vol] 18 U/L Normal 0-35 U/L [facility] Comment on above: Order Comment: [facility] has implemented the eGFR calculation approach that does not have a coefficient for race that conforms to the NKF-ASN Task Force Recommendations. Performed By: #### L [id number] #### LAB [address] [place], [place] [address] Davian Unger M.D. [id number] Bilirubin [Mass/Vol] 0.6 mg/dL Normal 0.0-1.3 [facility] Comment on above: Order Comment: [facility] has implemented the eGFR calculation approach that does not have a coefficient for race that conforms to the NKF-ASN Task Force Recommendations. Performed By: #### L [id number] #### MH LAB [address] [address] Davian Unger M.D. [id number] Calcium [Mass/Vol] 9.6 mg/dL Normal 8.4-10.2 [facility] Comment on above: Order Comment: [facility] has implemented the eGFR calculation approach that does not have a coefficient for race that conforms to the NKF-ASN Task Force Recommendations. Performed By: #### L [id number] #### MH LAB [address] [address] Davian Unger M.D. [id number] Chloride [Moles/Vol] 101 mmol/L Normal 98-108 [facility] Comment on above: Order Comment: [facility] has implemented the eGFR calculation approach that does not have a coefficient for race that conforms to the NKF-ASN Task Force Recommendations. Performed By: #### L [id number] #### MH LAB [address] [address] Davian Unger M.D. [id number] Creatinine [Mass/Vol] 0.88 mg/dL Normal 0.60-1.10 [facility] Comment on above: Order Comment: [facility] has implemented the eGFR calculation approach that does not have a coefficient for race that conforms to the NKF-ASN Task Force Recommendations. Performed By: #### L [id number] #### MH LAB [address] [address] Davian Unger M.D. [id number] EGFR 69 mL/min/1.73 m2 Normal >=60 [facility] Comment on above: Order Comment: [facility] has implemented the eGFR calculation approach that does not have a coefficient for race that conforms to the NKF-ASN Task Force Recommendations. Result Comment: Hayde mated GFR was calculated using the 2020 CKD-EPI creatinine equation. Performed By: #### L [id number] #### MH LAB [address] [address] Davian Unger M.D. [id number] Glucose [Mass/Vol] 89 mg/dL Normal 65-99 [facility] Comment on above: Order Comment: [facility] has implemented the eGFR calculation approach that does not have a coefficient for race that conforms to the NKF-ASN Task Force Recommendations. Performed By: #### L [id number] #### MH LAB [address] [address] Davian Unger M.D. [id number] HCO3 (Bld) [Moles/Vol] 27 mmol/L Normal 21-32 [facility] Comment on above: Order Comment: [facility] has implemented the eGFR calculation approach that does not have a coefficient for race that conforms to the NKF-ASN Task Force Recommendations. Performed By: #### L [id number] #### MH LAB [address] [address] Davian Unger M.D. [id number] Potassium [Moles/Vol] 3.7 mmol/L Normal 3.5-5.1 [facility] Comment on above: Order Comment: [facility] has implemented the eGFR calculation approach that does not have a coefficient for race that conforms to the NKF-ASN Task Force Recommendations. Performed By: #### L [id number] #### MH LAB [address] [address] Davian Unger M.D. [id number] Protein [Mass/Vol] 7.1 g/dL Normal 6.0-8.0 [facility] Comment on above: Order Comment: [facility] has implemented the eGFR calculation approach that does not have a coefficient for race that conforms to the NKF-ASN Task Force Recommendations. Performed By: #### L [id number] #### MH LAB [address], [place] [address] Davian Unger M.D. [id number] Sodium [Moles/Vol] 141 mmol/L Normal 135-145 [facility] Comment on above: Order Comment: [facility] has implemented the eGFR calculation approach that does not have a coefficient for race that conforms to the NKF-ASN Task Force Recommendations. Performed By: #### L [id number] #### MH LAB [address] [place], [place] [address] Davian Ugner M.D. [id number] Urea nitrogen [Mass/Vol] 15 mg/dL Normal 8-25 [facility] Comment on above: Order Comment: [facility] has implemented the eGFR calculation approach that does not have a coefficient for race that conforms to the NKF-ASN Task Force Recommendations. Performed By: #### L [id number] #### MH LAB [address], [place] [address] Davian Unger M.D. [id number] Urea nitrogen/Creatinine [Mass ratio] 17.0 mg/mg Normal 10.0-20.0 [facility] Comment on above: Order Comment: [facility] has implemented the eGFR calculation approach that does not have a coefficient for race that conforms to the NKF-ASN Task Force Recommendations. Performed By: #### L [id number] #### MH LAB [address], [place] [address] Davian Unger M.D. [id number] Comprehensive metabolic 2000 panelOrdered By: Jacki Gonzalez on 04-12-2024 Albumin [Mass/Vol] 4.3 g/dL 3.2 - 5.2 g/dL [facility] ALP [Catalytic activity/Vol] 86 U/L 40 - 150 U/L [facility] ALT [Catalytic activity/Vol] 13 U/L 0-35 U/L [facility] Anion gap [Moles/Vol] 17 mmol/L 10 - 20 mmol/L [facility] AST [Catalytic activity/Vol] 18 U/L 0-35 U/L [facility] Bilirubin [Mass/Vol] 0.6 mg/dL 0.0 - 1.3 mg/dL [facility] Calcium [Mass/Vol] 9.6 mg/dL 8.4 - 10. 2 mg/dL [facility] Chloride [Moles/Vol] 101 mmol/L 98 - 108 mmol/L [facility] Creatinine [Mass/Vol] 0.88 mg/dL 0.60 - 1.10 mg/dL [facility] GFR/1.73 sq M.predicted CKD-EPI (S/P/Bld) [Vol rate/Area] 69 - PINF [facility] Comment on above: Estimated GFR was ca lculated using the 2020 CKD-EPI creatinine equation. Glucose [Mass/Vol] 89 mg/dL 65 - 99 mg/dL [facility] [place] [facility] HCO3 [Moles/Vol] 27 mmol/L 21 - 32 mmol/L [facility] Interpretation and review of laboratory results Normal [facility] Potassium [Moles/Vol] 3.7 mmol/L 3.5 - 5.1 mmol/L [facility] Protein [Mass/Vol] 7.1 g/dL 6.0 - 8.0 g/dL [facility] Sodium [Moles/Vol] 141 mmol/L 135 - 145 mmol/L [facility] Urea nitrogen [Mass/Vol] 15 mg/dL 8 - 25 mg/dL [facility] Urea nitrogen/Creatinine [Mass ratio] 17.0 mg/mg 10.0 - 20.0 [facility] has implemented the eGFR calculation approach that does not have a coefficient for race that conforms to the NKF-ASN Task Force Recommendations. [facility] HEMOGLOBIN A1Con 04-12-2024 Glucose [Mass/Vol] 117 mg/dL High 74-114 [facility] Comment on above: Performed By: #### L [id number] #### MH LAB [address] [place], [place] [address] Davian Unger M.D. [id number] HbA1c (Bld) [Mass fraction] 5.7 % High 4.2-5.6 [facility] Comment on above: Performed By: #### L [id number] #### MH LAB [address] [address] Davian Unger M.D. [id number] HbA1c (Bld) [Mass fraction]o n 04-12-2024 Average glucose Estimated from glycated hemoglobin (Bld) [Mass/Vol] 117 mg/dL High 74 - 114 mg/dL [facility] Interpretation and review of laboratory results Abnormal [facility] Hemoglobin A1con 04-12-2024 HbA1c (Bld) [Mass fraction] 5.7 % High 4.2 - 5.6 % [facility] LIPID PANELon 04-12-2024 Cholesterol [Mass/Vol] 184 mg/dL Normal 100-199 [facility] Comment on above: Performed By: #### 4 [id number] ####MH LAB [address] [address] Davian Unger M.D. [id number] Cholesterol in HDL [Mass/Vol] 66 mg/dL Normal 40-59 [facility] Comment on above: Performed By: #### 4 6087 #### LAB [address] [address] Davian Unger M.D. [id number] Cholesterol.total/C holesterol in HDL [Mass ratio] 2.8 {ratio} Normal [facility] Comment on above: Result Comment: Fema le Cholesterol/HDL Ratio: Average risk: 4.4 1/2 average risk: 3.3 2 x average risk: 7.1 Performed By: #### 4 6087 #### LAB [address] [address] Davian Unger M.D. [id number] LDL CHOLESTEROL CALCULATED 98 mg/dL Normal 10-130 [facility] Comment on above: Result Comment: [employer] Cholesterol Education Program Guidelines: LDL Cholesterol Optimal: <100 mg/dL Near Optimal/above Optimal: 100-129 mg/dL Borderline High: 130-159 mg/dL High: 160-189 mg/dL Very High: greater than or equal to 190 mg/dL Performed By: #### 4 6087 #### LAB [address] [address] Davian Unger M.D. [id number] NON HDL CHOL 118 mg/dL Normal [facility] Comment on above: Result Comment: [employer] Cholesterol Education Program Guidelines: NON HDL Cholesterol Desirable: <130 mg/dL Borderline High: 130-159 mg/dL High: 160-189 mg/dL Very High: > or = 190 mg/dL Performed By: #### 4 6087 ####MH LAB [address] [place], [place] [address] Davian Unger M.D. [id number] Triglyceride [Mass/Vol] 100 mg/dL Normal 30-150 [facility] Comment on above: Performed By: #### 4 6087 #### LAB [address] [place], [place] [address] Davian Unger M.D. [id number] Lipid 1996 panelon Cholesterol [Mass/Vol] 184 mg/dL 100 - 199 mg/dL [facility] Cholesterol in HDL [Mass/Vol] 66 mg/dL 40 - 59 mg/dL [facility] Cholesterol in LDL [Mass/Vol] 98 mg/dL 10 - 130 mg/dL [facility] Comment on above: National Cholesterol Education Program Guidelines: LDL Cholesterol Optimal: <100 mg/dL Near Optimal/above Optimal: 100-129 mg/dL Borderline High: 130-159 mg/dL High: 160-189 mg/dL Very High: greater than or equal to 190 mg/dL Cholesterol non HDL [Mass/Vol] 118 mg/dL [facility] Comment on above: National Cholesterol Education Program Guidelines: NON HDL Cholesterol Desirable: <130 mg/dL Borderline High: 130-159 mg/dL High: 160-189 mg/dL Very High: > or = 190 mg/dL Cholesterol.total/C holesterol in HDL [Mass ratio] 2.8 {ratio} ratio [facility] Comment on above: Female Cholesterol/H DL Ratio: Average risk: 4.4 1/2 average risk: 3.3 2 x average risk: 7.1 Triglyceride [Mass/Vol] 100 mg/dL 30 - 150 mg/dL [facility] MICROALBUMIN/CREATININE RATI O, UR RANDOMon 04-12-2024 Albumin DL <= 20 mg/L (U) [Mass/Vol] 0.4 mg/dL Normal 0.0-1.8 [facility] Comment on above: Performed By: #### L [id number] #### MH LAB [address] [place], [place] [address] Davian Unger M.D. [id number] CREATININE, URINE, RANDOM 45.1 mg/dL [facility] Comment on above: Performed By: #### L [id number] #### MH LAB [address] [address] Davian Unger M.D. [id number] MICROALBUMIN/CREATI NINE RATIO 9 mg/g crea Normal 0-25 [facility] Comment on above: Performed By: #### L [id number] #### MH LAB [address] [address] Davian Unger M.D. [id number] MORPHOLOGYon 04-12-2024 OVAL SCAN Few [facility] Comment on above: Performed By: #### L [id number] #### MH LAB [address] [address] Davian Unger M.D. [id number] RBC MORPH SCAN See Comment Normal [facility] Comment on above: Result Comment: RBC Indices confirmed with manual peripheral smear review. Performed By: #### L [id number] #### MH LAB [address] [address] Davian Unger M.D. [id number] Microalbumin/Creatinine Rati o, UR RandomOrdered By: Sandrita Ramirez on 04-12-2024 Albumin DL <= 20 mg/L (U) [Mass/Vol] 0.4 mg/dL 0.0 - 1.8 mg/dL [facility] Albumin/Creatinine DL <= 20 mg/L (U) [Mass ratio] 9 mg/g [facility] Creatinine (U) [Mass/Vol] 45.1 mg/dL [facility] No Panel Informationon 04-12 [facility] TSH DL <= 0.005 mIU/L Qnon 0 04-12-2024 Interpretation and review of laboratory results Normal [facility] TSH Qn 1.38 m[IU]/L [facility] TSH WITH REFLEX FREE T4on TSH Qn 1.38 m[IU]/L Normal 0.27-4.20 [facility] Comment on above: Performed By: #### L [id number] #### MH LAB [address] [address] Davian Unger M.D. [id number] XR CHEST AP/PA AND LATon XR CHEST AP/PA AND LAT EXAMINATION: XR CHEST AP/PA AND LAT HISTORY: COPD with acute exacerbation (HCC) COMPARISON: 03/07/2015 IMPRESSION: FINDINGS/ 1. Lungs are clear. 2. No pneumothorax. No pleural effusion. 3. Heart size and mediastinal contours are normal. 4. No acute osseous abnormality. Moderate degeneration of the thoracic spine disc spaces. Workstation ID: [id number] Dictated by: ANJEL VIDAL on FriApr 13, 2024 2:37:46 PM EDT Transcribed by: ANJEL VIDAL on FriApr 13, 2024 2:37:46 PM EDT Finalized by: ANJEL VIDAL on FriApr 13, 2024 2:37:46 PM EDT [facility] Comment on above: Order Comment: Injur y/Trauma or Illness?:Illness/Other How long have you had these symptoms (acute/chronic)?:Acute Reason for exam?:COPD with acute exacerbation History of cancer?:no Surgeries, chemotherapy, or radiation?:appendix, tonsils Type of Exam?:Initial Additional signs and symptoms?:productive cough x 3 weeks, sob CBCon 05-07-2023 Erythrocyte distribution width (RBC) [Ratio] 13.2 % Normal 11.5 - 14.5 [facility] Comment on above: Performed By: #### C BC #### [address] [address] Hematocrit (Bld) [Volume fraction] 39.1 % Normal 36.0 - 46.0 [facility] Comment on above: Performed By: #### C BC #### [address] [address] Hemoglobin (Bld) [Mass/Vol] 13.2 g/dL Normal 12.0 - 16.0 [facility] Comment on above: Performed By: #### C BC #### [address] [address] MCHC (RBC) [Mass/Vol] 33.8 g/dL Normal 32.0 - 36.0 [facility] Comment on above: Performed By: #### C BC #### [address] [address] MCV (RBC) [Entitic vol] 92 fL Normal 80 - 100 [facility] Comment on above: Performed By: #### C BC #### [address] [address] Platelets (Bld) [#/Vol] 157 10*3/uL Normal 150 - 450 [facility] Comment on above: Performed By: #### C BC #### [address] [address] RBC 4.27 x10E12/L Normal 4.00 - 5.20 [facility] Comment on above: Performed By: #### C BC #### [address] [address] WBC (Bld) [#/Vol] 4.7 10*3/uL Normal 4.4 - 11.3 [facility] Comment on above: Performed By: #### C BC #### [address] [address] COMPREHENSIVE PANELon 2022 Albumin [Mass/Vol] 4.1 g/dL Normal 3.4 - 5.0 [facility] Comment on above: Performed By: #### C MP #### [address] [address] ALP [Catalytic activity/Vol] 65 U/L Normal 33 - 136 [facility] Comment on above: Performed By: #### C MP #### [address] [address] ALT [Catalytic activity/Vol] 17 U/L Normal 7 - 45 [facility] Comment on above: Result Comment: Paige ents treated with Sulfasalazine may generate falsely decreased results for ALT. Performed By: #### C MP #### [address] [address] Anion gap [Moles/Vol] 11 mmol/L Normal 10 - 20 [facility] Comment on above: Performed By: #### C MP #### [address] [address] AST [Catalytic activity/Vol] 16 U/L Normal 9 - 39 [facility] Comment on above: Performed By: #### C MP #### [address] [address] Bilirubin [Mass/Vol] 0.8 mg/dL Normal 0.0 - 1.2 [facility] Comment on above: Performed By: #### C MP #### [address] [address] Calcium [Mass/Vol] 9.3 mg/dL Normal 8.6 - 10.3 [facility] Comment on above: Performed By: #### C MP #### [address] [address] Chloride [Moles/Vol] 104 mmol/L Normal 98 - 107 [facility] Comment on above: Performed By: #### C MP #### [address] [address] Creatinine [Mass/Vol] 0.92 mg/dL Normal 0.50 - 1.05 [facility] Comment on above: Performed By: #### C MP #### [address] [address] GFR/1.73 sq M.predicted among non-blacks MDRD (S/P/Bld) [Vol rate/Area] 66 mL/min/{1.73_m2} Normal >90 [facility] Comment on above: Result Comment: CALC ULATIONS OF ESTIMATED GFR ARE PERFORMED USING THE 2020 CKD-EPI STUDY REFIT EQUATION WITHOUT THE RACE VARIABLE FOR THE IDMS-TRACEABLE CREATININE METHODS. https://jasn.asnjournals.org/content//ASN.43289714 88 Performed By: #### C MP #### [address] [address] Glucose [Mass/Vol] 119 mg/dL High 74 - 99 [facility] Comment on above: Performed By: #### C MP #### [address] [address] HCO3 (Bld) [Moles/Vol] 26 mmol/L Normal 21 - 32 [facility] Comment on above: Performed By: #### C MP #### [address] [address] Potassium [Moles/Vol] 3.4 mmol/L Low 3.5 - 5.3 [facility] Comment on above: Performed By: #### C MP #### [address] [address] Protein [Mass/Vol] 6.4 g/dL Normal 6.4 - 8.2 [facility] Comment on above: Performed By: #### C MP #### [address] [address] Sodium [Moles/Vol] 138 mmol/L Normal 136 - 145 [facility] Comment on above: Performed By: #### C MP #### [address] [address] Urea nitrogen [Mass/Vol] 16 mg/dL Normal 6 - 23 [facility] Comment on above: Performed By: #### C MP #### [address] [address] HEMOGLOBIN A1Con 05-07-2023 Glucose [Mass/Vol] 114 mg/dL Normal [facility] Comment on above: Performed By: #### H BA1E #### [address] [address] HbA1c (Bld) [Mass fraction] 5.6 % Normal [facility] Comment on above: Result Comment: Diag nosis of Diabetes-Adults Non-Diabetic: < or = 5.6% Increased risk for developing diabetes: 5.7-6.4% Diagnostic of diabetes: > or = 6.5% . Monitoring of Diabetes Age (y) Therapeutic Goal (%) Adults: >18 <7.0 Pediatrics: 13-18 <7.5 7-12 <8.0 0- 6 7.5-8.5 [place] [employer]. Diabetes Care 33(S1), Nov 2009. Performed By: #### H BA1E #### [address] [address] LIPID PANEL (CORONARY RISK 2 )on 05-07-2023 Cholesterol [Mass/Vol] 169 mg/dL Normal 0 - 199 [facility] Comment on above: Result Comment: . AGE DESIRABLE BORDERLINE HIGH HIGH 0-19 Y 0 - 169 170 - 199 >/= 200 20-24 Y 0 - 189 190 - 224 >/= 225 >24 Y 0 - 199 200 - 239 >/= 240 All ranges are based on fasting samples. Specific therapeutic targets will vary based on patient-specific cardiac risk. . Pediatric guidelines reference:Pediatrics 2011, 128(S5). Adult guidelines reference: NCEP ATPIII Guidelines, FLOWER 2001, 258:2486-97 . Venipuncture immediately after or during the administration of Metamizole may lead to falsely low results. Testing should be performed immediately prior to Metamizole dosing. Performed By: #### L IPID #### [address] [address] Cholesterol in HDL [Mass/Vol] 65.0 mg/dL Normal [facility] Comment on above: Result Comment: . AGE VERY LOW LOW NORMAL HIGH 0-19 Y < 35 < 40 40-45 ---- 20-24 Y ---- < 40 >45 ---- >24 Y ---- < 40 40-60 >60 . Performed By: #### L IPID #### [address] [address] Cholesterol in LDL [Mass/Vol] 89 mg/dL Normal 0 - 99 [facility] Comment on above: Result Comment: . NEAR BORD AGE DESIRABLE OPTIMAL HIGH HIGH VERY HIGH 0-19 Y 0 - 109 --- 110-129 >/= 130 ---- 20-24 Y 0 - 119 --- 120-159 >/= 160 ---- >24 Y 0 - 99 100-129 130-159 160-189 >/=190 . Performed By: #### L IPID #### [address] [address] Cholesterol in VLDL [Mass/Vol] 15 mg/dL Normal 0 - 40 [facility] Comment on above: Performed By: #### L IPID #### [address] [address] Cholesterol.total/C holesterol in HDL [Mass ratio] 2.6 {ratio} Normal [facility] Comment on above: Result Comment: REF VALUES DESIRABLE < 3.4 HIGH RISK > 5.0 Performed By: #### L IPID #### [address] [address] Triglyceride [Mass/Vol] 74 mg/dL Normal 0 - 149 [facility] Comment on above: Result Comment: . AGE DESIRABLE BORDERLINE HIGH HIGH VERY HIGH 0 D-90 D 19 - 174 ---- ---- ---- 91 D- 9 Y 0 - 74 75 - 99 >/= 100 ---- 10-19 Y 0 - 89 90 - 129 >/= 130 ---- 20-24 Y 0 - 114 115 - 149 >/= 150 ---- >24 Y 0 - 149 150 - 199 200- 499 >/= 500 . Venipuncture immediately after or during the administration of Metamizole may lead to falsely low results. Testing should be performed immediately prior to Metamizole dosing. Performed By: #### L IPID #### [address] [address] TSHon 05-07-2023 TSH Qn 1.09 m[IU]/L Normal 0.44 - 3.98 [facility] Comment on above: Result Comment: TSH testing is performed using different testing methodology at [facility] than at other [facility]. Direct result comparisons should only be made within the same method. Performed By: #### T SH2 #### [address] [address] Office Visit (Primary Care T xt/Forms)on 11-12-2022 Follow-up visit Diagnoses/Problems Assessed Hypothyroidism (244.9) (E03.9) Hyperlipidemia (272.4) (E78.5) Hyperglycemia (790.29) (R73.9) COPD (chronic obstructive pulmonary disease) (496) (J44.9) COPD (chronic obstructive pulmonary disease) Sleep apnea (780.57) (G47.30) Orders Anxiety Renew: DULoxetine HCl - 60 MG Oral Capsule Delayed Release Particles; TAKE 1 CAPSULE TWICE DAILY COPD (chronic obstructive pulmonary disease) Renew: Advair HFA 230-21 MCG/ACT Inhalation Aerosol; INHALE 2 PUFFS, BY MOUTH, TWICE DAILY Renew: Ventolin HFA 108 (90 Base) MCG/ACT Inhalation Aerosol Solution (Albuterol Sulfate HFA); INHALE 2 PUFFS EVERY 6 HOURS NEEDED FOR SHORTNESS OF BREATH AND FOR COPD (chronic obstructive pulmonary disease), Hyperglycemia, Hyperlipidemia, Hypothyroidism, Sleep apnea Complete Blood Count; Status:Active; Requested for:12Nov2022; Comprehensive Metabolic Panel; Status:Active; Requested for:12Nov2022; Hemoglobin A1C; Status:Active; Requested for:12Nov2022; Lipid Panel; Status:Active; Requested for:12Nov2022; TSH - Thyroid Stimulating Hormone, Serum; Status:Active; Requested for:12Nov2022; GERD (gastroesophageal reflux disease) Renew: Pantoprazole Sodium 40 MG Oral Tablet Delayed Release; take 1 tablet by mouth once daily Health Maintenance Renew: Azelastine-Fluticasone 137-50 MCG/ACT Nasal Suspension (Dymista); USE 1 SPRAY(S) IN EACH NOSTRIL TWICE DAILY Renew: Montelukast Sodium 10 MG Oral Tablet; TAKE 1 TABLET AT BEDTIME Renew: Nystatin [id number] UNIT/GM External Cream; APPLY AND RUB IN A THIN FILM TO AFFECTED AREAS TWICE DAILY.(AM AND PM) Renew: valACYclovir HCl - 500 MG Oral Tablet (Valtrex); TAKE 1 TABLET TWICE DAILY Hypothyroidism Renew: Levothyroxine Sodium 75 MCG Oral Tablet; take 1 tablet by mouth once daily Provider Impressions Provider Impressions Free Text Note Form: OV and lab in 6 months Chief Complaint 6MO History of Present Illness MMg ok 2021 colon due 2023 flu shot done covid booster done. COPD - Takes and tolerates medications. Mood -stable on medications Hyperglycemia A1c is down to 5.4 sugars down to 106 fasting. She is doing better with her bread intake. Hyperlipidemia - Takes and tolerates medications without fatigue and myalgias. Hypertension - Takes medication without side effects. No CP/SOB/Palpitations. Follows a no added salt diet. Counseled diet, activity and weight loss. Labs and office visit 6 months Sleep apnea with CPAP - Uses CPAP 7/7 nights, feels rested in the morning, no daytime fatigue and patient feels the CPAP is effective. Review of Systems Constitutional: No weakness, No fatigue. Eye: No blurring, No visual disturbances. Respiratory: No shortness of breath, No cough. Cardiovascular: No chest pain, No palpitations. Gastrointestinal: No nausea, No diarrhea, No constipation. Musculoskeletal: No joint pain, No muscle pain. Integumentary: No rash, No breakdown. Neurologic: Alert and oriented X4, No headache. Psychiatric: No irritability, No sleeping problems. Active Problems Problems Anxiety (300.00) (F41.9) Class 3 severe obesity due to excess calories with serious comorbidity and body mass index (BMI) of 40.0 to 44.9 in adult (278.01,V85.41) (E66.01,Z68.41) Colon polyps (211.3) (K63.5) COPD (chronic obstructive pulmonary disease) (496) (J44.9) Cough (786.2) (R05.9) Current moderate episode of major depressive disorder without prior episode (296.22) (F32.1) Encounter for immunization (V03.89) (Z23) Encounter for screening mammogram for breast cancer (V76.12) (Z12.31) GERD (gastroesophageal reflux disease) (530.81) (K21.9) Hyperglycemia (790.29) (R73.9) Hyperlipidemia (272.4) (E78.5) Hypothyroidism (244.9) (E03.9) Insomnia, persistent (307.42) (G47.00) Medicare annual wellness visit, subsequent (V70.0) (Z00.00) Screening breast examination (V76.10) (Z12.39) Sleep apnea (780.57) (G47.30) Past Medical History Problems History of mammogram (V15.89) (Z92.89) Surgical History Problems History of Colonoscopy History of Cystoscopy History of Hysterectomy History of Nasal septoplasty History of Tonsillectomy Family History Mother Family history of malignant neoplasm (V16.9) (Z80.9) Father Family history of acute myocardial infarction (V17.3) (Z82.49) Family history of asthma (V17.5) (Z82.5) Family history of congestive heart failure (V17.49) (Z82.49) Family history of coronary artery disease (V17.3) (Z82.49) Sister Family history of asthma (V17.5) (Z82.5) Family history of hypertension (V17.49) (Z82.49) Social History Problems Consumes alcohol (V49.89) (Z78.9) Denied: History of Drug use Former smoker (V15.82) (Z87.891) Patient has active durable power of civil attorney (DPOA) designee for healthcare Patient has living will (V49.89) (Z78.9) Current Meds Medication NameInstruction Advair HFA 230-21 MCG/ACT Inhalation AerosolINHALE 2 PUFFS, BY MOUTH, TWICE DAILY. (more content not included)... Normal [employer] Tobacco Screening.on 023 Adult depression screening assessment No [employer] [facility] Work Phone: Fall risk assessment a) No falls within the last year [employer] [facility] Work Phone: Tobacco use status CPHS b) No [employer] [facility] Work Phone: BASIC METABOLIC PANELon Anion gap [Moles/Vol] 12 mmol/L Normal 10 - 20 [facility] Comment on above: Performed By: #### B MP #### [address] [address] Calcium [Mass/Vol] 9.6 mg/dL Normal 8.6 - 10.3 [facility] Comment on above: Performed By: #### B MP #### [address] [address] Chloride [Moles/Vol] 102 mmol/L Normal 98 - 107 [facility] Comment on above: Performed By: #### B MP #### [address] [address] Creatinine [Mass/Vol] 0.96 mg/dL Normal 0.50 - 1.05 [facility] Comment on above: Performed By: #### B MP #### [address] [address] GFR/1.73 sq M.predicted among non-blacks MDRD (S/P/Bld) [Vol rate/Area] 63 mL/min/{1.73_m2} Normal >90 [facility] Comment on above: Result Comment: CALC ULATIONS OF ESTIMATED GFR ARE PERFORMED USING THE 2020 CKD-EPI STUDY REFIT EQUATION WITHOUT THE RACE VARIABLE FOR THE IDMS-TRACEABLE CREATININE METHODS. https://jasn.asnjournals.org/content//ASN.26550742 88 Performed By: #### B MP #### [address] [address] Glucose [Mass/Vol] 106 mg/dL High 74 - 99 [facility] Comment on above: Performed By: #### B MP #### [address] [address] HCO3 (Bld) [Moles/Vol] 30 mmol/L Normal 21 - 32 [facility] Comment on above: Performed By: #### B MP #### [address] [address] Potassium [Moles/Vol] 3.8 mmol/L Normal 3.5 - 5.3 [facility] Comment on above: Performed By: #### B MP #### [address] [address] Sodium [Moles/Vol] 140 mmol/L Normal 136 - 145 [facility] Comment on above: Performed By: #### B MP #### [address] [address] Urea nitrogen [Mass/Vol] 12 mg/dL Normal 6 - 23 [facility] Comment on above: Performed By: #### B MP #### [address] [address] HEMOGLOBIN A1Con 11-05-2022 Glucose [Mass/Vol] 108 mg/dL Normal [facility] Comment on above: Performed By: #### H BA1E #### [address] [address] HbA1c (Bld) [Mass fraction] 5.4 % Normal [facility] Comment on above: Result Comment: Diag nosis of Diabetes-Adults Non-Diabetic: < or = 5.6% Increased risk for developing diabetes: 5.7-6.4% Diagnostic of diabetes: > or = 6.5% . Monitoring of Diabetes Age (y) Therapeutic Goal (%) Adults: >18 <7.0 Pediatrics: 13-18 <7.5 7-12 <8.0 0- 6 7.5-8.5 [place] [employer]. Diabetes Care 33(S1), Nov 2009. Performed By: #### H BA1E #### [facility] [address] [id number] Hemoglobin A1Con 11-05-2022 Glucose [Mass/Vol] 108 mg/dL [employer] [facility] Work Phone: HbA1c (Bld) [Mass fraction] 5.4 % [employer] [facility] Work Phone: Comment on above: Diagnosis of Diabete s-Adults Non-Diabetic: < or = 5.6% Increased risk for developing diabetes: 5.7-6.4% Diagnostic of diabetes: > or = 6.5%. Monitoring of Diabetes Age (y) Therapeutic Goal (%) Adults: >18 <7.0 Pediatrics: 13-18 <7.5 7-12 <8.0 0- 6 7.5-8.5 [place] [employer]. Diabetes Care 33(S1), Nov 2009. Laboratory - Chemistry and C hemistry - challengeon 11-05-2022 Anion gap [Moles/Vol] 12 mmol/L 10 - 20 [employer] [facility] Work Phone: Calcium [Mass/Vol] 9.6 mg/dL 8.6 - 10.3 [employer] [facility] Work Phone: Chloride [Moles/Vol] 102 mmol/L 98 - 107 [employer] [facility] Work Phone: CO2 [Moles/Vol] 30 mmol/L 21 - 32 [employer] [facility] Work Phone: Creatinine [Mass/Vol] 0.96 mg/dL See Below [employer] [facility] Work Phone: Comment on above: Reference Range: 0.5 0 - 1.05 Glucose [Mass/Vol] 106 mg/dL above high threshold 74 - 99 [facility] Work Phone: Potassium [Moles/Vol] 3.8 mmol/L 3.5 - 5.3 [facility] Work Phone: Sodium [Moles/Vol] 140 mmol/L 136 - 145 [facility] Work Phone: Urea nitrogen [Mass/Vol] 12 mg/dL 6 - 23 [facility] Work Phone: No Panel Informationon 11-05 63 {mL/min/1.73m2} >90 [facility] Work Phone: Comment on above: CALCULATIONS OF HAYDE MATED GFR ARE PERFORMED USING THE 2020 CKD-EPI STUDY REFIT EQUATION WITHOUT THE RACE VARIABLE FOR THE IDMS-TRACEABLE CREATININE METHODS.https://jasn.asnjournals.org/content/early/ASN. 1965943962 Mamm - Screening Mammogram w / [employer] 04-15-2022 MG Breast Screening Normal [facility] Work Phone: Medicare Annual Wellness Vis iton 04-12-2022 Medicare Annual Wellness Visit *Chief Complaint MCW..6 MO FU. REV LABS History of Present Illness The patient is being seen for the subsequent annual wellness visit. Past Medical, Surgical and Family History: reviewed and updated in chart. Medications and Supplements: Review of all medications by a prescribing practitioner or clinical pharmacist (such as prescriptions, OTCs, herbal therapies and supplements) documented in the medical record. No, the patient is not using opioids. Patient Self Assessment of Health Status: good. Tobacco use: User Alcohol use: User, As noted in social history Illicit drug use: Non-User Current diet: unhealthy diet, does consume adequate fluids and does consume caffeine. Exercise Frequency: infrequently. Depression/Suicide Screening: Patient has a current diagnosis of depression . During the past 2 weeks, the patient felt down, depressed or hopeless. During the past 2 weeks, the patient felt little interest or pleasure in doing things. PHQ-9 Depression Scale: 1. Little interest or pleasure in doing things - more than half the days 2. Feeling down, depressed or hopeless - more than half the days 3. Trouble falling asleep or sleeping too much - more than half the days 4. Feeling tired or having little energy - more than half the days 5. Poor appetite or overeating - not at all 6. Feeling bad about self or failure or letting others down - more than half the days 7. Trouble concentrating on things - more than half the days 8. Moving / speaking slowly or fidgety / restless - not at all 9. Thought would be better off or hurting self - not at all Severity of depression is moderate. How difficult have these problems made it for you to do your work, take care of things at home, or get along with people? Somewhat difficult. Hearing Impairment: Patient has slight hearing impairment. Cognitive Impairment: No cognitive impairment observed. Bathing: performs independently. Dressing: performs independently. Walking: performs independently. Managing Finances: performs independently. Shopping: performs independently. Managing Medications: performs independently. Housework / Basic Home Maintenance: performs independently. Falls Risk Screening:. LOLA has not fallen in the last 6 months. Home safety risk factors: none. Advance directives:. Advance Care Planning discussed and documented in the medical record, patient did not wish or was not able to name a surrogate decision maker or provide an advance care plan. Patient has living will. Patient has healthcare POA. Hyperglycemia A1c is still okay and not on medications. Hyperlipidemia - Takes and tolerates medications without fatigue and myalgias. Hypothyroidism - No fatigue/cold intolerance/hair changes/skin changes/weight gain. Depression stable, little bit better than it was 6 months ago before starting was to have surgery. COPD - Takes and tolerates medications. Obesity weight is stable talked about eating less and eating less carbohydrates overall both for the weight and elevated glucose. Mammogram today Colonoscopy 2019, 5 years. Review of Systems Constitutional: No weakness, + fatigue. Eye: No blurring, No visual disturbances. Respiratory: No shortness of breath, No cough. Cardiovascular: No chest pain, No palpitations. Gastrointestinal: No nausea, No diarrhea, No constipation. Musculoskeletal: No joint pain, No muscle pain. Integumentary: No rash, No breakdown. Neurologic: Alert and oriented X4, No headache. Psychiatric: + irritability, + sleeping problems. *Active Problems Anxiety (300.00) (F41.9) Class 3 severe obesity due to excess calories with serious comorbidity and body mass index (BMI) of 40.0 to 44.9 in adult (278.01,V85.41) (E66.01,Z68.41) Class 3 severe obesity due to excess calories with serious comorbidity and body mass index (BMI) of 40.0 to 44.9 in adult Colon polyps (211.3) (K63.5) COPD (chronic obstructive pulmonary disease) (496) (J44.9) COPD (chronic obstructive pulmonary disease) Cough (786.2) (R05.9) Encounter for immunization (V03.89) (Z23) GERD (gastroesophageal reflux disease) (530.81) (K21.9) Hyperglycemia (790.29) (R73.9) Hyperlipidemia (272.4) (E78.5) Hypothyroidism (244.9) (E03.9) Insomnia, persistent (307.42) (G47.00) Medicare annual wellness visit, subsequent (V70.0) (Z00.00) Screening breast examination (V76.10) (Z12.39) Sleep apnea (780.57) (G47.30) Past Medical History History of mammogram (V15.89) (Z92.89) Surgical History History of Colonoscopy thomae, 5 years History of Cystoscopy History of Hysterectomy History of Nasal septoplasty History of Tonsillectomy Family History Family history of malignant neoplasm (V16.9) (Z80.9) Family history of acute myocardial infarction (V17.3) (Z82.49) Family history of asthma (V17.5) (Z82.5) Family history of congestive heart failure (V17.49) (Z82.49) Family history of coronary artery disease (V17.3) ( (more content not included)... Normal [employer] Tobacco Screening.on 022 Adult depression screening assessment Yes [employer] [facility] Work Phone: Fall risk assessment a) No falls within the last year [employer] [facility] Work Phone: Tobacco use status CPHS a) Yes [employer] [facility] Work Phone: Tobacco Screening. Yes [employer] [facility] [employer] [facility] Work Phone: Hemoglobin A1Con 04-04-2022 Glucose [Mass/Vol] 120 mg/dL [employer] [facility] [employer] [facility] Work Phone: HbA1c (Bld) [Mass fraction] 5.8 % Abnormal [employer] [facility] Work Phone: Comment on above: Diagnosis of Diabete s-Adults Non-Diabetic: < or = 5.6% Increased risk for developing diabetes: 5.7-6.4% Diagnostic of diabetes: > or = 6.5%. Monitoring of Diabetes Age (y) Therapeutic Goal (%) Adults: >18 <7.0 Pediatrics: 13-18 <7.5 7-12 <8.0 0- 6 7.5-8.5 [place] [employer]. Diabetes Care 33(S1), Nov 2009. Laboratory - Chemistry and C hemistry - challengeon 04-04-2022 Albumin BCP dye [Mass/Vol] 4.0 g/dL 3.4 - 5.0 [employer] [facility] Work Phone: ALP [Catalytic activity/Vol] 66 U/L 33 - 136 [employer] [facility] Work Phone: ALT With P-5'-P [Catalytic activity/Vol] 20 U/L 7 - 45 [employer] [facility] Work Phone: Comment on above: Patients treated wit h Sulfasalazine may generate falsely decreased results for ALT. Anion gap [Moles/Vol] 12 mmol/L 10 - 20 [employer] [facility] Work Phone: AST With P-5'-P [Catalytic activity/Vol] 19 U/L 9 - 39 [employer] [facility] Work Phone: Bilirubin [Mass/Vol] 0.9 mg/dL 0.0 - 1.2 [employer] [facility] Work Phone: Calcium [Mass/Vol] 9.3 mg/dL 8.6 - 10.3 -[facility] Work Phone: Chloride [Moles/Vol] 104 mmol/L 98 - 107 [facility] Work Phone: CO2 [Moles/Vol] 26 mmol/L 21 - 32 [facility] Work Phone: Creatinine [Mass/Vol] 0.82 mg/dL See Below [facility] Work Phone: Comment on above: Reference Range: 0.5 0 - 1.05 Glucose [Mass/Vol] 118 mg/dL above high threshold 74 - 99 [facility] Work Phone: Potassium [Moles/Vol] 4.1 mmol/L 3.5 - 5.3 [facility] Work Phone: Protein [Mass/Vol] 6.6 g/dL 6.4 - 8.2 -[facility] Work Phone: Sodium [Moles/Vol] 138 mmol/L 136 - 145 [facility] Work Phone: Urea nitrogen [Mass/Vol] 14 mg/dL 6 - 23 [facility] Work Phone: Laboratory - Hematology and Cell countson 04-04-2022 Erythrocyte distribution width (RBC) [Ratio] 14.2 % See Below [facility] Work Phone: Comment on above: Reference Range: 11. 5 - 14.5 Hematocrit (Bld) [Volume fraction] 38.1 % See Below [facility] Work Phone: Comment on above: Reference Range: 36. 0 - 46.0 Hemoglobin (Bld) [Mass/Vol] 13.2 g/dL See Below [facility] Work Phone: Comment on above: Reference Range: 12. 0 - 16.0 MCHC (RBC) [Mass/Vol] 34.5 g/dL See Below [employer] [facility] Work Phone: Comment on above: Reference Range: 32. 0 - 36.0 MCV (RBC) [Entitic vol] 91 fL 80 - 100 [employer] [facility] Work Phone: Platelets (Bld) [#/Vol] 210 10*3/uL 150 - 450 [employer] [facility] Work Phone: RBC (Bld) [#/Vol] 4.19 {x10E12/L} See Below [employer] [facility] Work Phone: Comment on above: Reference Range: 4.0 0 - 5.20 WBC (Bld) [#/Vol] 4.6 10*3/uL 4.4 - 11.3 [facility] [employer] [facility] Work Phone: Lipid Panelon 04-04-2022 Cholesterol [Mass/Vol] 173 mg/dL 0 - 199 [employer] [facility] Work Phone: Comment on above: . AGE DESIRABLE BORD MUKUL HIGH HIGH 0-19 Y 0 - 169 170 - 199 >/= 200 20-24 Y 0 - 189 190 - 224 >/= 225 >24 Y 0 - 199 200 - 239 >/= 240 All ranges are based on fasting samples. Specific therapeutic targets will vary based on patient-specific cardiac risk.. Pediatric guidelines reference:Pediatrics 2011, 128(S5). Adult guidelines reference: NCEP ATPIII Guidelines, FLOWER 2001, 258:2486-97. Venipuncture immediately after or during the administration of Metamizole may lead to falsely low results. Testing should be performed immediately prior to Metamizole dosing. Cholesterol in HDL [Mass/Vol] 70.0 mg/dL [employer] [facility] Work Phone: Comment on above: . AGE VERY LOW LOW N ORMAL HIGH 0-19 Y < 35 < 40 40-45 ---- 20- 24 Y ---- < 40 >45 ---- >24 Y ---- < 40 40-60 >60. Cholesterol in LDL [Mass/Vol] 76 mg/dL 0 - 99 [employer] [facility] Work Phone: Comment on above: . NEAR BORD AGE BRANDON RABLE OPTIMAL HIGH HIGH VERY HIGH 0-19 Y 0 - 109 --- 110-129 >/= 130 ---- 20-24 Y 0 - 119 --- 120-159 >/= 160 ---- >24 Y 0 - 99 100-129 130-159 160-189 >/=190. Cholesterol.total/C holesterol in HDL [Mass ratio] 2.5 {ratio} [employer] [facility] Work Phone: Comment on above: REF VALUESDESIRABLE < 3.4HIGH RISK > 5.0 Triglyceride [Mass/Vol] 134 mg/dL 0 - 149 [employer] [facility] Work Phone: Comment on above: . AGE DESIRABLE BORD MUKUL HIGH HIGH VERY HIGH 0 D-90 D 19 - 174 ---- ---- ----91 D- 9 Y 0 - 74 75 - 99 >/= 100 ---- 10-19 Y 0 - 89 90 - 129 >/= 130 ---- 20-24 Y 0 - 114 115 - 149 >/= 150 ---- >24 Y 0 - 149 150 - 199 200- 499 >/= 500. Venipuncture immediately after or during the administration of Metamizole may lead to falsely low results. Testing should be performed immediately prior to Metamizole dosing. Lipid Panel 27 mg/dL 0 - 40 [employer] [facility] Work Phone: No Panel Informationon 04-04 76 {mL/min/1.73m2} >90 [facility] [employer] [facility] Work Phone: Comment on above: CALCULATIONS OF HAYDE MATED GFR ARE PERFORMED USING THE 2020 CKD-EPI STUDY REFIT EQUATION WITHOUT THE RACE VARIABLE FOR THE IDMS-TRACEABLE CREATININE METHODS.https://jasn.asnjournals.org/content//ASN. 5345576028 TSH - Thyroid Stimulating Ho luzone, Serumon 04-04-2022 TSH Qn 1.34 m[IU]/L See Below [facility] Work Phone: Comment on above: Reference Range: 0.4 4 - 3.98 TSH testing is performed using different testing methodology at [facility] than at other [facility]. Direct result comparisons should only be made within the same method. CBC AND DIFFERENTIALon 03-13 DIFFERENTIAL SEE MANUAL DIFF Normal [facility] Comment on above: Performed By: #### C BCDF #### [address] [address] Erythrocyte distribution width (RBC) [Ratio] 13.8 % Normal 11.5 - 14.5 [facility] Comment on above: Performed By: #### C BCDF #### [address] [address] Hematocrit (Bld) [Volume fraction] 37.9 % Normal 36.0 - 46.0 [facility] Comment on above: Performed By: #### C BCDF #### [address] [address] Hemoglobin (Bld) [Mass/Vol] 12.8 g/dL Normal 12.0 - 16.0 [facility] Comment on above: Performed By: #### C BCDF #### [address] [address] MCHC (RBC) [Mass/Vol] 33.8 g/dL Normal 32.0 - 36.0 [facility] Comment on above: Performed By: #### C BCDF #### [address] [address] MCV (RBC) [Entitic vol] 91 fL Normal 80 - 100 [facility] Comment on above: Performed By: #### C BCDF #### [address] [address] NUCLEATED RBC 0.1 /100 WBC Normal [facility] Comment on above: Performed By: #### C BCDF #### [address] [address] Platelets (Bld) [#/Vol] 183 10*3/uL Normal 150 - 450 [facility] Comment on above: Performed By: #### C BCDF #### [address] [address] RBC 4.18 x10E12/L Normal 4.00 - 5.20 [facility] Comment on above: Performed By: #### C BCDF #### [address] [address] WBC (Bld) [#/Vol] 5.0 10*3/uL Normal 4.4 - 11.[address] [facility] Comment on above: Performed By: #### C BCDF #### [address] [address] COMPREHENSIVE PANELon 2021 Albumin [Mass/Vol] 3.8 g/dL Normal 3.4 - 5.[address] [facility] Comment on above: Performed By: #### C MP #### [address] [address] ALP [Catalytic activity/Vol] 113 U/L Normal 33 - 136 [facility] Comment on above: Performed By: #### C MP #### [address] [address] ALT [Catalytic activity/Vol] 27 U/L Normal 7 - 45 [facility] Comment on above: Result Comment: Paige ents treated with Sulfasalazine may generate falsely decreased results for ALT. Performed By: #### C MP #### [address] [address] Anion gap [Moles/Vol] 11 mmol/L Normal 10 - 20 [facility] Comment on above: Performed By: #### C MP #### [address] [address] AST [Catalytic activity/Vol] 16 U/L Normal 9 - 39 [facility] Comment on above: Performed By: #### C MP #### [address] [address] Bilirubin [Mass/Vol] 0.9 mg/dL Normal 0.0 - 1.2 [facility] Comment on above: Performed By: #### C MP #### [address] [address] Calcium [Mass/Vol] 8.7 mg/dL Normal 8.6 - 10.[address] [facility] Comment on above: Performed By: #### C MP #### [address] [address] Chloride [Moles/Vol] 100 mmol/L Normal 98 - 107 [facility] Comment on above: Performed By: #### C MP #### [address] [address] Creatinine [Mass/Vol] 0.94 mg/dL Normal 0.50 - 1.05 [facility] Comment on above: Performed By: #### C MP #### [address] [address] GFR/1.73 sq M.predicted among non-blacks MDRD (S/P/Bld) [Vol rate/Area] 65 mL/min/{1.73_m2} Normal >90 [facility] Comment on above: Result Comment: CALC ULATIONS OF ESTIMATED GFR ARE PERFORMED USING THE 2020 CKD-EPI STUDY REFIT EQUATION WITHOUT THE RACE VARIABLE FOR THE IDMS-TRACEABLE CREATININE METHODS. https://jasn.asnjournals.org/content//ASN.36404147 88 Performed By: #### C MP #### [address] [address] Glucose [Mass/Vol] 136 mg/dL High 74 - [address] [facility] Comment on above: Performed By: #### C MP #### [address] [address] HCO3 (Bld) [Moles/Vol] 26 mmol/L Normal 21 - 32 [facility] Comment on above: Performed By: #### C MP #### [address] [address] Potassium [Moles/Vol] 3.9 mmol/L Normal 3.5 - 5.3 [facility] Comment on above: Performed By: #### C MP #### [address] [address] Protein [Mass/Vol] 6.9 g/dL Normal 6.4 - 8.[address] [facility] Comment on above: Performed By: #### C MP #### [address] [address] Sodium [Moles/Vol] 133 mmol/L Low 136 - [address] [facility] Comment on above: Performed By: #### C MP #### [address] [address] Urea nitrogen [Mass/Vol] 12 mg/dL Normal 6 - 23 [facility] Comment on above: Performed By: #### C MP #### [address] [address] [address] HEAD WO CONTRASTon 2021 CT HEAD WO CONTRAST Patient Name: LOLA DREW STUDY: CT HEAD WO CONTRAST; 03/13/2022 10:35 am INDICATION: BITEMPORAL BOYER . COMPARISON: None ACCESSION NUMBER(S): [id number] ORDERING CLINICIAN: XOCHITL WILL TECHNIQUE: Noncontrast axial CT scan of head was performed. Angled reformats in brain and bone windows were generated. The images were reviewed in bone, brain, blood and soft tissue windows. FINDINGS: No acute edema. No acute hemorrhage. No mass effect. Ventricular system is normal for age. No extra-axial fluid collections. Orbits are normal. Paranasal sinuses are clear. IMPRESSION: No acute findings. Electronically signed by: RAMY GROSS MD Normal [facility] CT Head without Contraston 0 03-13-2022 CT Head limited WO contrast Normal -[facility] Work Phone: Complete Blood Count + Diffe rentialon 03-13-2022 Erythrocyte distribution width (RBC) [Ratio] 13.8 % See Below [facility] Work Phone: Comment on above: Reference Range: 11. 5 - 14.5 Hematocrit (Bld) [Volume fraction] 37.9 % See Below [facility] Work Phone: Comment on above: Reference Range: 36. 0 - 46.0 Hemoglobin (Bld) [Mass/Vol] 12.8 g/dL See Below [facility] Work Phone: Comment on above: Reference Range: 12. 0 - 16.0 MCHC (RBC) [Mass/Vol] 33.8 g/dL See Below [facility] Work Phone: Comment on above: Reference Range: 32. 0 - 36.0 MCV (RBC) [Entitic vol] 91 fL 80 - 100 [facility] Work Phone: Platelets (Bld) [#/Vol] 183 10*3/uL 150 - 450 [facility] Work Phone: RBC (Bld) [#/Vol] 4.18 {x10E12/L} See Below [facility] Work Phone: Comment on above: Reference Range: 4.0 0 - 5.20 WBC (Bld) [#/Vol] 5.0 10*3/uL 4.4 - 11.3 [facility] Work Phone: Complete Blood Count + Differential SEE MANUAL DIFF [facility] Work Phone: Complete Blood Count + Differential 0.1 {/100_WBC} [facility] Work Phone: Laboratory - Chemistry and C hemistry - challengeon 03-13-2022 Albumin BCP dye [Mass/Vol] 3.8 g/dL 3.4 - 5.0 [facility] Work Phone: ALP [Catalytic activity/Vol] 113 U/L 33 - 136 [facility] Work Phone: ALT With P-5'-P [Catalytic activity/Vol] 27 U/L 7 - 45 [facility] Work Phone: Comment on above: Patients treated wit h Sulfasalazine may generate falsely decreased results for ALT. Anion gap [Moles/Vol] 11 mmol/L 10 - 20 [facility] Work Phone: AST With P-5'-P [Catalytic activity/Vol] 16 U/L 9 - 39 [facility] Work Phone: Bilirubin [Mass/Vol] 0.9 mg/dL 0.0 - 1.2 [facility] Work Phone: Calcium [Mass/Vol] 8.7 mg/dL 8.6 - 10.3 [facility] Work Phone: Chloride [Moles/Vol] 100 mmol/L 98 - 107 [facility] Work Phone: CO2 [Moles/Vol] 26 mmol/L 21 - 32 [facility] Work Phone: Creatinine [Mass/Vol] 0.94 mg/dL See Below [facility] Work Phone: Comment on above: Reference Range: 0.5 0 - 1.05 Glucose [Mass/Vol] 136 mg/dL above high threshold 74 - 99 [facility] Work Phone: Potassium [Moles/Vol] 3.9 mmol/L 3.5 - 5.3 [facility] Work Phone: Protein [Mass/Vol] 6.9 g/dL 6.4 - 8.2 -[facility] Work Phone: Sodium [Moles/Vol] 133 mmol/L below low threshold 136 - 145 [facility] Work Phone: Urea nitrogen [Mass/Vol] 12 mg/dL 6 - 23 [facility] Work Phone: Laboratory - Coagulationon 0 - INR Coag (PPP) [Relative time] 1.1 {INR} 0.9 - 1.1 [facility] Work Phone: PT Coag (PPP) [Time] 13.0 s 9.8 - 13.4 [facility] Work Phone: Laboratory - Hematology and Cell countson 03-13-2022 Band form neutrophils/100 WBC (Bld) 2.1 % 0.0 - 5.0 [facility] Work Phone: Basophils/100 WBC (Bld) 0.0 % 0.0 - 2.0 [facility] Work Phone: Lymphocytes/100 WBC (Bld) 4.2 % See Below [facility] Work Phone: Comment on above: Reference Range: 13. 0 - 44.0 Monocytes/100 WBC (Bld) 10.4 % 2.0 - 10.0 [facility] Work Phone: MANUAL DIFFERENTIALon 2021 % BAND NEUTROPHIL 2.1 % Normal 0.0 - 5.0 [facility] Comment on above: Performed By: #### M DIFF #### [address] [address] % BASOPHIL 0.0 % Normal 0.0 - 2.0 [facility] Comment on above: Performed By: #### M DIFF #### [address] [address] % EOSINOPHIL 7.3 % Normal 0.0 - 6.0 [facility] Comment on above: Performed By: #### M DIFF #### [address] [address] % LYMPHOCYTE 4.2 % Normal 13.0 - 44.0 [facility] Comment on above: Performed By: #### M DIFF #### [address] [address] % MONOCYTE 10.4 % Normal 2.0 - 10.0 [facility] Comment on above: Performed By: #### M DIFF #### [address] [address] % SEG NEUTROPHIL 76.0 % Normal 40.0 - 80.0 [facility] Comment on above: Result Comment: Perc ent differential counts (%) should be interpreted in the context of the absolute cell counts (cells/L). Performed By: #### M DIFF #### [address] [address] ANC 3.91 x10E9/L Normal 1.60 - 5.50 [facility] Comment on above: Performed By: #### M DIFF #### [place] [address] BAND NEUTROPHIL 0.11 x10E9/L Normal 0.00 - 0.[address] [facility] Comment on above: Performed By: #### M DIFF #### [place] [address] BASOPHIL 0.00 x10E9/L Normal 0.00 - 0.10 [facility] Comment on above: Performed By: #### M DIFF #### [place] [address] EOSINOPHIL 0.37 x10E9/L Normal 0.00 - 0.40 [facility] Comment on above: Performed By: #### M DIFF #### [place] [address] LYMPHOCYTE 0.21 x10E9/L Low 0.80 - 3.00 [facility] Comment on above: Performed By: #### M DIFF #### [place] [id number] MONOCYTE 0.52 x10E9/L Normal 0.05 - 0.80 [facility] Comment on above: Performed By: #### M DIFF #### [place] [address] SEG NEUTROPHIL 3.80 x10E9/L Normal 1.60 - 5.00 [facility] Comment on above: Performed By: #### M DIFF #### [place] [id number] No Panel Informationon 03-13 FEW [facility] Work Phone: SEE BELOW -[facility] Work Phone: 0.00 {x10E9/L} See Below [facility] Work Phone: Comment on above: Reference Range: 0.0 0 - 0.10 0.37 {x10E9/L} See Below [facility] [employer] [facility] Work Phone: Comment on above: Reference Range: 0.0 0 - 0.40 0.52 {x10E9/L} See Below [facility] Work Phone: Comment on above: Reference Range: 0.0 5 - 0.80 0.21 {x10E9/L} below low threshold See Below [facility] Work Phone: Comment on above: Reference Range: 0.8 0 - 3.00 0.11 {x10E9/L} See Below [facility] Work Phone: Comment on above: Reference Range: 0.0 0 - 0.50 3.80 {x10E9/L} See Below [facility] Work Phone: Comment on above: Reference Range: 1.6 0 - 5.00 3.91 {x10E9/L} See Below [facility] Work Phone: Comment on above: Reference Range: 1.6 0 - 5.50 7.3 % 0.0 - 6.0 [facility] Work Phone: 76.0 % See Below [facility] Work Phone: Comment on above: Reference Range: 40. 0 - 80.0 Percent differential counts (%) should be interpreted in the context of the absolute cell counts (cells/L). 65 {mL/min/1.73m2} >90 [facility] Work Phone: Comment on above: CALCULATIONS OF HAYDE MATED GFR ARE PERFORMED USING THE 2020 CKD-EPI STUDY REFIT EQUATION WITHOUT THE RACE VARIABLE FOR THE IDMS-TRACEABLE CREATININE METHODS.https://jasn.asnjournals.org/content/early//ASN. 7080311513 PT/INRon 03-13-2022 PT Coag (PPP) [Time] 13.0 s Normal 9.8 - 13.4 [facility] Comment on above: Performed By: #### P TINR #### [address] [address] PT, INR 1.1 Normal 0.9 - 1.1 [facility] Comment on above: Performed By: #### P TINR #### [address] [address] Provider Note - ED v3on 03-03 Provider Note - ED v3 Provider Note: Chart Review: ED NOTES ED NOTES: CC=HEADACHE HPI= the patient complains of headache for the last 2 to 3 days. She states the headache is bitemporal mostly on the left abdomen radiates to the right sometimes she has a sharp stabbing headache only last for 1 to 2 seconds and is accompanied by nausea some photophobia. She has remote history of migraine headaches and 30 years ago but none recently. She denies any injury or trauma. She denies any weakness to arms and legs she denies any neck stiffness or pain no fever chills otherwise presents now for evaluation she denies any eye pain. SH= positive for vaping denies any current smoking or drug usage PM HX-positive for COPD and remote history of migraines Active Problems Problems Anxiety (300.00) (F41.9) Class 3 severe obesity due to excess calories with serious comorbidity and body mass index (BMI) of 40.0 to 44.9 in adult (278.01,V85.41) (E66.01,Z68.41) Colon polyps (211.3) (K63.5) COPD (chronic obstructive pulmonary disease) (496) (J44.9) Cough (786.2) (R05.9) GERD (gastroesophageal reflux disease) (530.81) (K21.9) Patient Name: LOLA DREW : 1950 Gender: Female Printed by , 03/13/2022 09:37:50 Page 2 of 3 Hyperglycemia (790.29) (R73.9) Hyperlipidemia (272.4) (E78.5) Hypothyroidism (244.9) (E03.9) Insomnia, persistent (307.42) (G47.00) Medicare annual wellness visit, subsequent (V70.0) (Z00.00) Screening breast examination (V76.10) (Z12.39) Sleep apnea (780.57) (G47.30) Surgical History Problems History of Colonoscopy History of Cystoscopy History of Hysterectomy History of Nasal septoplasty History of Tonsillectomy Family History Mother Family history of malignant neoplasm (V16.9) (Z80.9) Father Family history of acute myocardial infarction (V17.3) (Z82.49) Family history of asthma (V17.5) (Z82.5) Family history of congestive heart failure (V17.49) (Z82.49) Family history of coronary artery disease (V17.3) (Z82.49) Sister Family history of asthma (V17.5) (Z82.5) Family history of hypertension (V17.49) (Z82.49) Social History Problems Consumes alcohol (V49.89) (Z72.89) Denied: History of Drug use Former smoker (V15.82) (Z87.891) Patient has active durable power of civil attorney (DPOA) designee for healthcare Patient has living will (V49.89) (Z78.9) HISTORY OF PRESENTING ILLNESS LOLA is a 71 year old Female and was seen by me at 13-Mar-2022 09:22 for a chief complaint of headache (Patient reports off and on headache, left temporal, for 2 days with associated nausea. Denies vomiting, fever, injury or blood thinners.)(1). Triage Information: Most recent Vital Sign Value Date Temp (F): 96.9 03-13-2022 09:17 Temp (C): 36 03-13-2022 09:17 Heart Rate (beats/min): 77 03-13-2022 09:17 Respirations (breaths/min): 16 03-13-2022 09:17 SpO2 (%): 93 03-13-2022 09:17 BP Systolic (mm Hg): 149 03-13-2022 09:17 BP Diastolic (mm Hg): 74 03-13-2022 09:17 PAST MEDICAL HISTORY ALLERGIES/INTOLERANCES : Allergy Allergen: amoxicillin Type: Drug Reaction: Rash Allergen: sulfamethizole Type: Drug Reaction: Rash HEALTH HISTORY: No documented data. OUTPATIENT MEDICATIONS: Home Medications Review Status for Reconciliation: Complete Med Status: Patient Currently Takes Medications Drug Name: Advair HFA 230 mcg-21 mcg/inh inhalation aerosol Instructions: 2 puff(s) inhaled 2 times a day Drug Name: Spiriva Respimat 10 ACT 2.5 mcg/inh inhalation aerosol Instructions: 2 puff(s) inhaled 2 times a day Drug Name: montelukast 10 mg oral tablet Instructions: 1 tab(s) orally once a day (at bedtime) Drug Name: azelastine 137 mcg/inh (0.1%) nasal spray Instructions: 2 spray(s) nasal 2 times a day Drug Name: Albuterol (Eqv-ProAir HFA) 90 mcg/inh inhalation aerosol Instructions: 2 puff(s) inhaled prn, As Needed Drug Name: fluticasone 50 mcg/inh nasal spray Instructions: 1 spray(s) nasal once a day, As Needed Drug Name: DULoxetine 60 mg oral delayed release capsule Instructions: 1 cap(s) orally 2 times a day // AM & PM Drug Name: pantoprazole 40 mg oral delayed release tablet Instructions: 1 tab(s) orally once a day Drug Name: potassium chloride 20 mEq oral tablet, extended release Instructions: 1 tab(s) orally once a day Drug Name: furosemide 40 mg oral tablet Instructions: 1 tab(s) orally 2 times a day Drug Name: Ariella 24 Hour Allergy oral tablet Instructions: 1 tab(s) orally once a day Drug Name: Centrum Silver Women's oral tablet Instructions: 1 tab(s) orally once a day Drug Name: B-12 2500 mcg oral tablet Instructions: 1 tab(s) orally once a day Drug Name: Vitamin D3 25 mcg (1000 intl units) oral tablet Instructions: 1 tab(s) orally once a day Drug Name: Calcium 600+D oral tablet Instructions: 1 tab(s) orally once a day // Oscal 600 + D3 SIGNIFICANT EVENTS: No documented data. (more content not included)... Normal [facility] Provider Note - ED v3 This report has been cancelled. Normal [facility] RED CELL MORPHOLOGYon 2021 GIANT PLATELETS FEW Normal [facility] Comment on above: Performed By: #### M ORP2 #### [address] [address] RBC morphology finding Nom (Bld) SEE BELOW [facility] Comment on above: Performed By: #### M ORP2 #### [address] [address] Risk Screen - Adult Emergenc yon 03-13-2022 Risk Screen - Adult Emergency Preferred Language: Preferred Language: Preferred Language for Discussing Health Care (patient/designee)Engl denisse Advanced Directives: Advance Directive/DNRno Family Violence Adult: Abuse Screen: Are you or have you been threatened or abused physically, emotionally, or sexually by anyoneno Learning Assessment (Patient): Learning Assessment (Patient): Patient is Able to be Assessed for Learningyes Factors Influencing Readiness to Learnnone Factors that Impact Ability to Learnnone Devices/Methods Used to Communicatenone Learning Preferencesverbal instruction; written material Cultural Considerationsnone Developmental Considerationsnone Mosque Considerationsnone Learning Assessment (Other Learner): Learning Assessment (Other Learner): Other learner availableno Pressure Injury/TB/Substance: Pressure Injury: Do you have a coughno Smoking Statuslight user (uses <10 cig/day, OR <0.5 ppd, OR 1 can/pouch loose leaf tobacco per week, OR <0.5 vape pods per day) Tobacco Cessation Education (provide if tobacco use within the last 12 mos) patient declined Alcohol Usedenies Drug Usedenies Admission Risk Screen: Significant IndicatorsComplete CAGE: CAGE: Is this an injured patient at a Trauma Center ([facility]/[place]): no Electronic Signatures: Hilda Hallman (SUPV) (Signed 13-Mar-2022 09:26) Authored: Preferred Language, Advanced Directives, Family Violence Adult, Learning Assessment (Patient), Learning Assessment (Other Learner), Pressure Injury/TB/Substance, Pressure Injury, CAGE Last Updated: 13-Mar-2022 09:26 by Hilda Hallman (SUPV) [facility] Triage - EDon 03-13-2022 Triage - ED Chart Review: ARRIVAL INFORMATION Mode of Arrival: private vehicle CHIEF COMPLAINT LOLA DREW is a Female patient with a chief complaint of headache (Patient reports off and on headache, left temporal, for 2 days with associated nausea. Denies vomiting, fever, injury or blood thinners.). Triage Date/Time: 13-Mar-2022 09:17 MOE: 3 Pain Rating (0-10): 8 = Severe Vital Signs: Temperature: 96.9F ( 36.0C) taken temporal Blood Pressure: 149/74 Mean: Heart Rate: 77 Respiratory Rate: 16 Pulse Oximetry: 93% on room air, no respiratory support. Height: 5 feet 4.00 inches. 162.5 CM Weight: 233.4 pounds. Calculated 105.9 kg. (stated) Calculated BMI (kg/m2): 40.104 Calculated BSA (m2) 2.19 [place] Coma Scale: Best Eye Response: (E4) spontaneous Best Motor Response: (M6) obeys commands Best Verbal Response: (V5) oriented [place] Score: 15 Allergies: yes Patient has homicidal thoughts: no Last Known Well: known Time Last Known Well Date/Time: 11-Mar-2022 Risk Screens Suicide Risk Screen In the Past Month: Have you wished you were or wished you could go to sleep and not wake up no In the Past Month: Have you had any actual thoughts of killing yourself no In Your Lifetime: Have you ever done anything, started to do anything, or prepared to do anything to end your life no Wynn Fall Scale Screening Has the patient fallen before (or is the patient in the ED as a result of a fall) has not had a fall Does the patient have an impaired gait does not have impaired gait Is the patient cognitively impaired not cognitively impaired Interventions: Wynn Fall Interventions: LOW INTERVENTIONS: *patient oriented to surroundings and call system, * patient/family falls education completed and documented, *patients fall status communicated during bedside handoff, *whiteboard updated, *mode of toileting discussed with patient, *bed in low position with brakes locked, *call light in reach, * non-skid footwear TRAVEL HISTORY Travel History Coronavirus Screening: no exposure or symptoms Travel Exposure History: NO travel to International locations in the past 30 days PAIN Pain Scale Used: LEESA Pain Rating (0-10): 8 = Severe Past Medical History: Past Medical History Reviewedyes Electronic Signatures: Hilda Hallman (SUPV) (Signed 13-Mar-2022 09:26) Entered: Risk Screens, Pain, Travel History, Chart Review, Scores, Past Medical History Authored: Quick Triage, Risk Screens, Pain, Travel History, Chart Review, Scores, Past Medical History Last Updated: 13-Mar-2022 09:26 by Hilda Hallman (SUPV) [facility] Tobacco Screening.on 021 Fall risk assessment a) No falls within the last year [employer] [facility] Work Phone: Tobacco use status CPHS a) Yes [employer] [facility] Work Phone: Tobacco Screening. Yes [employer] [facility] Work Phone: Laboratory - Chemistry and C hemistry - challengeon 03-26-2021 Albumin BCP dye [Mass/Vol] 4.3 g/dL 3.4 - 5.0 [employer] [facility] Work Phone: ALP [Catalytic activity/Vol] 63 U/L 33 - 136 [employer] [facility] Work Phone: ALT With P-5'-P [Catalytic activity/Vol] 22 U/L 7 - 45 [employer] [facility] Work Phone: Comment on above: Patients treated wit h Sulfasalazine may generate falsely decreased results for ALT. Anion gap [Moles/Vol] 13 mmol/L 10 - 20 [employer] [facility] Work Phone: AST With P-5'-P [Catalytic activity/Vol] 19 U/L 9 - 39 [employer] [facility] Work Phone: Bilirubin [Mass/Vol] 0.6 mg/dL 0.0 - 1.2 [employer] [facility] Work Phone: Calcium [Mass/Vol] 9.3 mg/dL 8.6 - 10.3 [employer] [facility] Work Phone: Chloride [Moles/Vol] 102 mmol/L 98 - 107 [employer] [facility] Work Phone: CO2 [Moles/Vol] 27 mmol/L 21 - 32 [employer] [facility] Work Phone: Creatinine [Mass/Vol] 0.98 mg/dL See Below [employer] [facility] Work Phone: Comment on above: Reference Range: 0.5 0 - 1.05 Glucose [Mass/Vol] 113 mg/dL above high threshold 74 - 99 [employer] [facility] Work Phone: Potassium [Moles/Vol] 3.8 mmol/L 3.5 - 5.3 [employer] [facility] Work Phone: Protein [Mass/Vol] 7.0 g/dL 6.4 - 8.2 [employer] [facility] Work Phone: Sodium [Moles/Vol] 138 mmol/L 136 - 145 [employer] [facility] Work Phone: Urea nitrogen [Mass/Vol] 19 mg/dL 6 - 23 [employer] [facility] Work Phone: Lipid Panelon 03-26-2021 Cholesterol [Mass/Vol] 180 mg/dL 0 - 199 [employer] [facility] Work Phone: Comment on above: . AGE DESIRABLE BORD MUKUL HIGH HIGH 0-19 Y 0 - 169 170 - 199 >/= 200 20-24 Y 0 - 189 190 - 224 >/= 225 >24 Y 0 - 199 200 - 239 >/= 240 All ranges are based on fasting samples. Specific therapeutic targets will vary based on patient-specific cardiac risk.. Pediatric guidelines reference:Pediatrics 2011, 128(S5). Adult guidelines reference: NCEP ATPIII Guidelines, FLOWER 2001, 258:2486-97. Venipuncture immediately after or during the administration of Metamizole may lead to falsely low results. Testing should be performed immediately prior to Metamizole dosing. Cholesterol in HDL [Mass/Vol] 72.0 mg/dL [employer] [facility] Work Phone: Comment on above: . AGE VERY LOW LOW N ORMAL HIGH 0-19 Y < 35 < 40 40-45 ---- 20- 24 Y ---- < 40 >45 ---- >24 Y ---- < 40 40-60 >60. Cholesterol in LDL [Mass/Vol] 91 mg/dL 0 - 99 [employer] [facility] Work Phone: Comment on above: . NEAR BORD AGE BRANDON RABLE OPTIMAL HIGH HIGH VERY HIGH 0-19 Y 0 - 109 --- 110-129 >/= 130 ---- 20-24 Y 0 - 119 --- 120-159 >/= 160 ---- >24 Y 0 - 99 100-129 130-159 160-189 >/=190. Cholesterol.total/C holesterol in HDL [Mass ratio] 2.5 {ratio} [employer] [facility] Work Phone: Comment on above: REF VALUESDESIRABLE < 3.4HIGH RISK > 5.0 Triglyceride [Mass/Vol] 84 mg/dL 0 - 149 [employer] [facility] Work Phone: Comment on above: . AGE DESIRABLE BORD MUKUL HIGH HIGH VERY HIGH 0 D-90 D 19 - 174 ---- ---- ----91 D- 9 Y 0 - 74 75 - 99 >/= 100 ---- 10-19 Y 0 - 89 90 - 129 >/= 130 ---- 20-24 Y 0 - 114 115 - 149 >/= 150 ---- >24 Y 0 - 149 150 - 199 200- 499 >/= 500. Venipuncture immediately after or during the administration of Metamizole may lead to falsely low results. Testing should be performed immediately prior to Metamizole dosing. Lipid Panel 17 mg/dL 0 - 40 [employer] [facility] Work Phone: No Panel Informationon 03-26 68 {mL/min/1.73m2} >60 [facility] [employer] [facility] Work Phone: Comment on above: CALCULATIONS OF HAYDE MATED GFR ARE PERFORMED USING THE MDRD STUDY EQUATION FOR THE IDMS-TRACEABLE CREATININE METHODS. CLIN CHEM 2007;53:766-72 56 {mL/min/1.73m2} Abnormal >60 [employer] [facility] Work Phone: TSH - Thyroid Stimulating Ho Tae sheldonon 03-26-2021 TSH Qn 1.57 m[IU]/L See Below [facility] Work Phone: Comment on above: Reference Range: 0.4 4 - 3.98 TSH testing is performed using different testing methodology at [facility] than at other [facility]. Direct result comparisons should only be made within the same method. MA Mamm Screen w/CAD if perf ormed bilaton 02-16-2019 MA Mamm Screen w/CAD if performed bilat Exam Date/Time: 02/16/2019 14:36 EDT Reason for Exam: SCREENING;Screening Report STUDY: MA Mamm Screen w/CAD if performed bilat; 02/16/2019 2:36 pm ACCESSION NUMBER(S): [id number] ORDERING CLINICIAN: Steven Alfaro INDICATION: Screening. COMPARISON: 02/04/2017 FINDINGS: The breast tissue is almost entirely fatty. No suspicious masses or calcifications are identified. CAD was utilized. IMPRESSION: No mammographic evidence of malignancy. BI-RADS CATEGORY: Category: 2 - Benign Finding. Recommendation: Normal Interval Follow-up, Over Age 40. Recall Interval: 12 Months. Breast Density: Fatty. For any future breast imaging appointments, please call [phone]). FINAL REPORT Dictated: 02/16/2019 4:32 pm Prosper Ortega MD Signed (Electronic Signature): 02/16/2019 4:32 pm Signed by: Prosper Ortega MD Technologist: MGW Assessment: BI-RADS Category 2-Benign finding Recommendation: Normal interval follow-up Normal [facility] Auto Diffon 02-08-2019 Basophils (Bld) [#/Vol] 0.0 E3/mcL Normal 0.0-0.2 [facility] Comment on above: Order Comment: Order Added by Discern Expert. Performed By: #### 2 [id number] #### [facility] [employer] [address] [place] [address] Basophils/100 WBC (Bld) 0.8 % Normal 0.0-2.0 [facility] Comment on above: Order Comment: Order Added by Discern Expert. Performed By: #### 2 [id number] #### [facility] [employer] [address] [place] [address] Eos Absolute 0.3 E3/mcL Normal 0.0-0.7 [facility] Comment on above: Order Comment: Order Added by Discern Expert. Performed By: #### 2 [id number] #### [facility] [employer] [address] [place] [address] Eosinophils/100 WBC (Bld) 6.2 % Normal 0.0-11.0 [facility] Comment on above: Order Comment: Order Added by Discern Expert. Performed By: #### 2 [id number] #### [facility] [employer] [address] [place] [address] Lymphocytes (Bld) [#/Vol] 1.9 E3/mcL Normal 1.2-3.4 [facility] Comment on above: Order Comment: Order Added by Discern Expert. Performed By: #### 2 [id number] #### [facility] [employer] [address] [place] [address] Lymphocytes/100 WBC (Bld) 35.9 % Normal 20.0-55.0 [facility] Comment on above: Order Comment: Order Added by Discern Expert. Performed By: #### 2 [id number] #### [facility] [employer] [address] [place] [address] [place] Absolute 0.4 E3/mcL Normal 0.0-0.7 [facility] Comment on above: Order Comment: Order Added by Discern Expert. Performed By: #### 2 [id number] #### [facility] [employer] [address] [place] [address] Monocytes/100 WBC (Bld) 6.9 % Normal 0.0-10.0 [facility] Comment on above: Order Comment: Order Added by Discern Expert. Performed By: #### 2 [id number] #### [facility] [employer] [address] [place] [address] Neutro Absolute 2.6 E3/mcL Normal 1.4-6.5 [facility] Comment on above: Order Comment: Order Added by Discern Expert. Performed By: #### 2 [id number] #### [facility] [place] [address] Neutro Auto 50.2 % Normal 37.0-75.0 [facility] Comment on above: Order Comment: Order Added by Discern Expert. Performed By: #### 2 [id number] #### GABI Kum[employer] [address] [place], [place] [id number] CBC w/ Auto Diffon 9 Erythrocyte distribution width (RBC) [Ratio] 13.3 % Normal 11.5-14.5 [facility] Comment on above: Performed By: #### 2 [id number] #### [place] [place] [id number] Hematocrit (Bld) [Volume fraction] 38.3 % Normal 36.0-48.0 [facility] Comment on above: Performed By: #### 2 [id number] #### [facility] [place] [id number] Hemoglobin (Bld) [Mass/Vol] 13.1 g/dL Normal 12.0-16.0 [facility] Comment on above: Performed By: #### 2 [id number] #### GABI Kumaro [address] [place] [address]41 MCH (RBC) [Entitic mass] 32.1 pg High 27.0-31.0 [facility] Comment on above: Performed By: #### 2 [id number] #### GABI Kumaro [address] [place] [address]249 MCHC (RBC) [Mass/Vol] 34.2 g/dL Normal 33.0-37.0 [facility] Comment on above: Performed By: #### 2 [id number] #### [facility] AllenHemo [address] [place] [address] 68617 MCV (RBC) [Entitic vol] 93.7 fL Normal 78.0-100.0 [facility] Comment on above: Performed By: #### 2 703991 #### [facility] AllenHemo [address] [place] [address] 63864 Platelet mean volume (Bld) [Entitic vol] 9.6 fL Normal 7.4-11.0 [facility] Comment on above: Performed By: #### 2 555600 #### [facility] AllenH[facility] [address] [place] [address] 68282 Platelets (Bld) [#/Vol] 168 E3/mcL Normal 130-400 [facility] Comment on above: Performed By: #### 2 [id number] #### GABI TiffanyHemo [address] [place], [place] [address] RBC (Bld) [#/Vol] 4.09 E6/mcL Normal 3.90-5.40 [facility] Comment on above: Performed By: #### 2 [id number] #### GABIMarlee AllenHemo [address] [place], [place] [address] WBC (Bld) [#/Vol] 5.2 E3/mcL Normal 3.6-11.0 [facility] Comment on above: Performed By: #### 2 139657 #### G[facility]I TiffanyHemo [address] [place], [place] [address] CMPon 02-08-2019 Albumin [Mass/Vol] 4.0 g/dL Normal 3.4-5.0 [facility] Comment on above: Performed By: #### 2 125049 #### [facility] [employer] [facility] [place] [address] Albumin/Globulin [Mass ratio] 2.0 {ratio} High 1.1-1.9 [facility] Comment on above: Performed By: #### 2 [id number] #### [facility] [employer] [address] [place], [place] [address] Alk Phos 56 Int._Unit/L Normal 33-136 [facility] Comment on above: Performed By: #### 2 [id number] #### G[facility]I [employer] [address] [place] [address] 65460 ALT [Catalytic activity/Vol] 21 Int._Unit/L Normal 7-45 [facility] Comment on above: Performed By: #### 2 [id number] #### [facility] [employer] [address] [place], [place] [address] Anion gap [Moles/Vol] 9 mmol/L Low 10-20 [facility] Comment on above: Performed By: #### 2 [id number] #### [facility] [employer] [address] [place] [address] 75676 AST [Catalytic activity/Vol] 17 Int._Unit/L Normal 9-39 [facility] Comment on above: Performed By: #### 2 [id number] #### [facility] [employer] [address] [place] [address] 35083 Bili Total 0.71 mg/dL Normal 0.00-1.20 [facility] Comment on above: Performed By: #### 2 [id number] #### [facility] [employer] [address] [place] [address] 16167 Calcium [Mass/Vol] 9.4 mg/dL Normal 8.6-10.3 [facility] Comment on above: Performed By: #### 2 516029 #### [facility] [employer] [address] [place] [address] 60068 Chloride [Moles/Vol] 106 mmol/L Normal 98-107 [facility] Comment on above: Performed By: #### 2 734721 #### [facility] [employer] [address] [place] [address] 38100 CO2 [Moles/Vol] 30.0 mmol/L Normal 21.0-32.0 [facility] Comment on above: Performed By: #### 2 [id number] #### [facility] [address] [place] [address] 54641 Creatinine [Mass/Vol] 0.9 mg/dL Normal 0.5-1.1 [facility] Comment on above: Performed By: #### 2 [id number] #### [facility] [employer] [address] [place] [address] 70475 Globulin (S) [Mass/Vol] 2.0 g/dL Normal 2.0-4.0 [facility] Comment on above: Performed By: #### 2 [id number] #### [facility] [employer] [address] [place] [address] 23475 Glucose [Mass/Vol] 116 mg/dL High 70-99 [facility] Comment on above: Performed By: #### 2 [id number] #### [facility] [address] [place] [address]6934 Potassium [Moles/Vol] 4.0 mmol/L Normal 3.5-5.3 [facility] Comment on above: Performed By: #### 2 [id number] #### [facility] [address] [place] [address] 18969 Protein [Mass/Vol] 6.0 g/dL Low 6.4-8.2 [facility] Comment on above: Performed By: #### 2 759126 #### [employer] [address] [place] [address] 94222 Sodium [Moles/Vol] 141 mmol/L Normal 136-145 [facility] Comment on above: Performed By: #### 2 577994 #### [employer] [address] [place] [address] 27144 Urea nitrogen [Mass/Vol] 13 mg/dL Normal 6-23 [facility] Comment on above: Performed By: #### 2 357225 #### [facility] [address] [place] [address] 18277 Urea nitrogen/Creatinine [Mass ratio] 14.4 ratio Normal 5.4-30.0 [facility] Comment on above: Performed By: #### 2 [id number] #### [facility] [employer] [address] [place] [address] 59322 Lipid Profileon 02-08-2019 Cholesterol [Mass/Vol] 151 mg/dL Normal 0-199 [facility] Comment on above: Result Comment: TOTA L CHOLEESTEROL: <200 NORMAL 200 - 239 BORDERLINE HIGH >240 HIGH Performed By: #### 3 [id number] #### [facility] [address] [place] [address] 87479 Cholesterol in HDL [Mass/Vol] 65 mg/dL High 40-60 [facility] Comment on above: Performed By: #### 3 [id number] #### [facility] [employer] [address] [place] [address] 63189 Cholesterol in LDL [Mass/Vol] 62 mg/dL Normal 0-130 [facility] Comment on above: Result Comment: <100 OPTIMAL 100-129 NEAR / ABOVE OPTIMAL 130-159 BORDERLINE HIGH 160-189 HIGH >190 VERY HIGH CALC LDL NOT VALID WHEN TRIGLYCERIDE IS >400 MG/DL Performed By: #### 3 [id number] #### [facility] [employer] [address] [place] [address] Cholesterol in VLDL [Mass/Vol] 24 mg/dL Normal 0-40 [facility] Comment on above: Performed By: #### 3 [id number] #### [facility] [employer] [facility] [place] [address] Triglyceride [Mass/Vol] 122 mg/dL Normal 0-149 [facility] Comment on above: Result Comment: AGE DESIRABLE BORDERLINE HIGH 91 D - 9 Y 0 - 74 75 - 99 > 100 10 - 19 Y 0 - 89 90 - 129 > 130 20 -24 Y 0 - 114 115 - 149 > 150 > 25 0 - 149 150 - 199 200 - 499 Performed By: #### 3 [id number] #### [facility] [employer] [facility] [place] [address] TSHon 02-08-2019 TSH Qn 0.56 mcIU/mL Normal 0.30-5.60 [facility] Comment on above: Performed By: #### 2 [id number] #### [facility] [employer] [address] [place] [address] 34936 eGFRon 02-08-2019 GFR/1.73 sq M predicted among non-blacks MDRD (S/P/Bld) [Vol rate/Area] mL/min/{1.73_m2} Normal [facility] Comment on above: Order Comment: Order added by Discern Expert. Performed By: #### 1 [id number] #### [facility] [employer] [address] [place] [address]99 Vital Signs Date Time Vital Sign Value Performing Clinician Facility 05-13-2025 08:020400 Body height 162.[address] Steven Alfaro MD Work Phone: [facility] 05-13-2025 08:020400 Body mass index (BMI) [Ratio] 40.6 kg/m2 Dr. Steven Alfaro MD Work Phone: [facility] 05-13-2025 08:020400 Body temperature 97.1 [degF] Dr. Steven Alfaro MD Work Phone: [facility] 05-13-2025 08:020400 Body weight 107.[address] Steven Alfaro MD Work Phone: [facility] 05-13-2025 08:02-0400 Diastolic blood pressure 93 mm[Hg] Dr. Steven Alfaro MD Work Phone: [facility] 05-13-2025 08:02-0400 Heart rate 63 /min Dr. Steven Alfaro MD Work Phone: [facility] 05-13-2025 08:02-0400 Respiratory rate 18 /min Dr. Steven Alfaro MD Work Phone: [facility] 05-13-2025 08:02-0400 SaO2% (BldA) [Mass fraction] 96 % Dr. Steven Alfaro MD Work Phone: [facility] 05-13-2025 08:02-0400 Systolic blood pressure 148 mm[Hg] Dr. Steven Alfaro MD Work Phone: [facility] 04-19-2025 10:30-0400 Body height 162.6 cm Елена Shank [employer] Work Phone: [facility] 04-19-2025 10:30-0400 Body mass index (BMI) [Ratio] 40.05 kg/m2 Елена Shank [employer] Work Phone: [facility] 04-19-2025 10:30-0400 Body temperature 98.2 [degF] Елена Shank [employer] Work Phone: [facility] 04-19-2025 10:30-0400 Body weight 105.82 kg Елена Shank [employer] Work Phone: [facility] 04-19-2025 10:30-0400 Diastolic blood pressure 60 mm[Hg] Елнеа Shank [employer] Work Phone: [facility] 04-19-2025 10:30-0400 Heart rate 72 /min Елена Shank [employer] Work Phone: [facility] 04-19-2025 10:30-0400 Respiratory rate 18 /min Елена Shank [employer] Work Phone: [facility] 04-19-2025 10:30-0400 SaO2% (BldA) [Mass fraction] 95 % Елена Bourne [employer] Work Phone: [facility] 04-19-2025 10:30-0400 Systolic blood pressure 122 mm[Hg] Елена Bourne [employer] Work Phone: [facility] 04-01-2025 09:29-0400 Body height 162.6 cm Sara Alvarez MD Work Phone: [facility] 04-01-2025 09:29-0400 Body mass index (BMI) [Ratio] 40.85 kg/m2 Sara Alvarez MD Work Phone: [facility] 04-01-2025 09:29-0400 Body temperature 98.29 [degF] Sara Alvarez MD Work Phone: [facility] 04-01-2025 09:29-0400 Body weight 107.96 kg Sara Alvarez MD Work Phone: [facility] 04-01-2025 09:29-0400 Diastolic blood pressure 84 mm[Hg] Sara Alvarez MD Work Phone: [facility] 04-01-2025 09:29-0400 Heart rate 67 /min Sara Alvarez MD Work Phone: [facility] 04-01-2025 09:29-0400 Respiratory rate 16 /min Sara Alvarez MD Work Phone: [facility] 04-01-2025 09:29-0400 SaO2% (BldA) [Mass fraction] 93 % Sara Alvarez MD Work Phone: [facility] 04-01-2025 09:29-0400 Systolic blood pressure 143 mm[Hg] Sara Alvarez MD Work Phone: [facility] 03-10-2025 11:48-0400 Body height 162.6 cm Diana Jaci DO Work Phone: [facility] 03-10-2025 11:48-0400 Body mass index (BMI) [Ratio] 40.25 kg/m2 Diana Jaci DO Work Phone: [facility] 03-10-2025 11:48-0400 Body temperature 98.91 [degF] Diana Jaci DO Work Phone: [facility] 03-10-2025 11:48-0400 Body weight 106.37 kg Diana Jaci DO Work Phone: [facility] 03-10-2025 11:48-0400 Diastolic blood pressure 61 mm[Hg] Diana Jaci DO Work Phone: [facility] 03-10-2025 11:48-0400 Heart rate 68 /min Diana Jaci DO Work Phone: [facility] 03-10-2025 11:48-0400 SaO2% (BldA) [Mass fraction] 93 % Diana Jaci DO Work Phone: [facility] 03-10-2025 11:48-0400 Systolic blood pressure 114 mm[Hg] Diana Jaci DO Work Phone: [facility] 02-16-2025 10:41-0400 Body height 162.6 cm Rogelio Panda [employer] Work Phone: [facility] 02-16-2025 10:41-0400 Body mass index (BMI) [Ratio] 40.87 kg/m2 Rogelio Panda [employer] Work Phone: [facility] 02-16-2025 10:41-0400 Body temperature 98.1 [degF] Rogelio Panda [employer] Work Phone: [facility] 02-16-2025 10:41-0400 Body weight 108 kg Rogelio Panda [employer] Work Phone: [facility] 02-16-2025 10:41-0400 Diastolic blood pressure 60 mm[Hg] Rogelio Panda [employer] Work Phone: [facility] 02-16-2025 10:41-0400 Heart rate 53 /min Rogelio Panda [employer] Work Phone: [facility] 02-16-2025 10:41-0400 SaO2% (BldA) [Mass fraction] 94 % Rogelio Panda [employer] Work Phone: [facility] 02-16-2025 10:41-0400 Systolic blood pressure 118 mm[Hg] Rogelio Panda [employer] Work Phone: [facility] 02-10-2025 13:44-0400 Body height 162.6 cm Елена Shank [employer] Work Phone: [facility] 02-10-2025 13:44-0400 Body mass index (BMI) [Ratio] 40.66 kg/m2 Елена Shank [employer] Work Phone: [facility] 02-10-2025 13:44-0400 Body temperature 98.01 [degF] Елена Shank [employer] Work Phone: [facility] 02-10-2025 13:44-0400 Body weight 107.46 kg Елена Shank [employer] Work Phone: [facility] 02-10-2025 13:44-0400 Diastolic blood pressure 71 mm[Hg] Елена Shank [employer] Work Phone: [facility] 02-10-2025 13:44-0400 Heart rate 59 /min Елена Shank [employer] Work Phone: [facility] 02-10-2025 13:44-0400 Respiratory rate 18 /min Елена Shank [employer] Work Phone: [facility] 02-10-2025 13:44-0400 SaO2% (BldA) [Mass fraction] 92 % Елена Shank [employer] Work Phone: [facility] 02-10-2025 13:44-0400 Systolic blood pressure 120 mm[Hg] Елена Shank [employer] Work Phone: [facility] 11-22-2024 13:37-0500 Body height 162.6 cm Sara Alvarez MD Work Phone: [facility] 11-22-2024 13:37-0500 Body mass index (BMI) [Ratio] 40.51 kg/m2 Sara Alvarez MD Work Phone: [facility] 11-22-2024 13:37-0500 Body temperature 98.2 [degF] Sara Alvarez MD Work Phone: [facility] 11-22-2024 13:37-0500 Body weight 107.05 kg Sara Alvarez MD Work Phone: [facility] 11-22-2024 13:37-0500 Diastolic blood pressure 73 mm[Hg] Sara Alvarez MD Work Phone: [facility] 11-22-2024 13:37-0500 Heart rate 59 /min Sara Alvarez MD Work Phone: [facility] 11-22-2024 13:37-0500 Respiratory rate 16 /min Sara Avlarez MD Work Phone: [facility] 11-22-2024 13:37-0500 SaO2% (BldA) [Mass fraction] 94 % Sara Alvarez MD Work Phone: [facility] 11-22-2024 13:37-0500 Systolic blood pressure 131 mm[Hg] Sara Alvarez MD Work Phone: [facility] 11-17-2024 10:31-0500 Body height 162.6 cm Rogelio Panda [employer] Work Phone: [facility] 11-17-2024 10:31-0500 Body mass index (BMI) [Ratio] 40.61 kg/m2 Rogelio Panda [employer] Work Phone: [facility] 11-17-2024 10:31-0500 Body temperature 97.59 [degF] Rogelio Panda [employer] Work Phone: [facility] 11-17-2024 10:31-0500 Body weight 107.32 kg Rogelio Panda [employer] Work Phone: [facility] 11-17-2024 10:31-0500 Diastolic blood pressure 75 mm[Hg] Rogelio Panda [employer]IC ARTIST Work Phone: [facility] 11-17-2024 10:31-0500 Heart rate 58 /min Rogelio Panda POTTER OR CERAMIC ARTIST Work Phone: [facility] 11-17-2024 10:31-0500 SaO2% (BldA) [Mass fraction] 95 % Rogelio Panda POTTER OR CERAMIC ARTIST Work Phone: [facility] 11-17-2024 10:31-0500 Systolic blood pressure 124 mm[Hg] Rogelio Panda POTTER OR CERAMIC ARTIST Work Phone: [facility] 10-28-2024 11:17-0500 Body height 162.6 cm Sara Alvarez MD Work Phone: [facility] 10-28-2024 11:17-0500 Body mass index (BMI) [Ratio] 40.34 kg/m2 Sara Alvarez MD Work Phone: [facility] 10-28-2024 11:17-0500 Body temperature 97.81 [degF] Sara Alvarez MD Work Phone: [facility] 10-28-2024 11:17-0500 Body weight 106.59 kg Sara Alvarez MD Work Phone: [facility] 10-28-2024 11:17-0500 Diastolic blood pressure 76 mm[Hg] Sara Alvarez MD Work Phone: [facility] 10-28-2024 11:17-0500 Heart rate 74 /min Sara Alvarez MD Work Phone: [facility] 10-28-2024 11:17-0500 Respiratory rate 16 /min Sara Alvarez MD Work Phone: [facility] 10-28-2024 11:17-0500 SaO2% (BldA) [Mass fraction] 95 % Sara Alvarez MD Work Phone: [facility] 10-28-2024 11:17-0500 Systolic blood pressure 131 mm[Hg] Sara Alvarez MD Work Phone: [facility] 10-20-2024 11:41-0500 Diastolic blood pressure 86 mm[Hg] Elicia Miles MD Work Phone: [facility] 10-20-2024 11:41-0500 Heart rate 64 /min Elicia Miles MD Work Phone: [facility] 10-20-2024 11:41-0500 Systolic blood pressure 108 mm[Hg] Elicia Miles MD Work Phone: [facility] 10-20-2024 08:35-0500 Body temperature 97.5 [degF] Elicia Miles MD Work Phone: [facility] 10-20-2024 08:35-0500 Respiratory rate 16 /min Elicia Miles MD Work Phone: [facility] 10-20-2024 08:35-0500 SaO2% (BldA) [Mass fraction] 95 % Elicia Miles MD Work Phone: [facility] 10-19-2024 13:48-0500 Body height 162.6 cm Elicia Miles MD Work Phone: [facility] 10-19-2024 13:48-0500 Body mass index (BMI) [Ratio] 40.45 kg/m2 Elicia Miles MD Work Phone: [facility] 10-19-2024 13:48-0500 Body weight 106.9 kg Elicia Miles MD Work Phone: [facility] 10-18-2024 09:46-0500 Body height 162.6 cm Jens Ibanez MD Work Phone: [facility] 10-18-2024 09:46-0500 Body mass index (BMI) [Ratio] 41.37 kg/m2 Jens Ibanez MD Work Phone: [facility] 10-18-2024 09:46-0500 Body weight 109.32 kg Jens Ibanez MD Work Phone: [facility] 10-18-2024 09:46-0500 Diastolic blood pressure 85 mm[Hg] Jens Ibanez MD Work Phone: [facility] 10-18-2024 09:46-0500 Heart rate 65 /min Jens Ibanez MD Work Phone: [facility] 10-18-2024 09:46-0500 SaO2% (BldA) [Mass fraction] 95 % Jens Ibanez MD Work Phone: [facility] 10-18-2024 09:46-0500 Systolic blood pressure 125 mm[Hg] Jens Ibanez MD Work Phone: [facility] 09-16-2024 13:38-0500 Body height 162.6 cm Елена Shank POTTER OR CERAMIC ARTIST Work Phone: [facility] 09-16-2024 13:38-0500 Body mass index (BMI) [Ratio] 40.89 kg/m2 Елена Shank POTTER OR CERAMIC ARTIST Work Phone: [facility] 09-16-2024 13:38-0500 Body temperature 98.2 [degF] Елена Shank POTTER OR CERAMIC ARTIST Work Phone: [facility] 09-16-2024 13:38-0500 Body weight 108.05 kg Елена Shank POTTER OR CERAMIC ARTIST Work Phone: [facility] 09-16-2024 13:38-0500 Diastolic blood pressure 92 mm[Hg] Елена Shank POTTER OR CERAMIC ARTIST Work Phone: [facility] 09-16-2024 13:38-0500 Heart rate 58 /min Елена Shank POTTER OR CERAMIC ARTIST Work Phone: [facility] 09-16-2024 13:38-0500 Respiratory rate 18 /min Елена Shank POTTER OR CERAMIC ARTIST Work Phone: [facility] 09-16-2024 13:38-0500 SaO2% (BldA) [Mass fraction] 98 % Елена Shank POTTER OR CERAMIC ARTIST Work Phone: [facility] 09-16-2024 13:38-0500 Systolic blood pressure 148 mm[Hg] Елена Shank POTTER OR CERAMIC ARTIST Work Phone: [facility] 08-30-2024 09:58-0400 Body height 162.6 cm Rogelio Panda POTTER OR CERAMIC ARTIST Work Phone: [facility] 08-30-2024 09:58-0400 Body mass index (BMI) [Ratio] 40.84 kg/m2 Rogelio Panda CNP Work Phone: [facility] 08-30-2024 09:58-0400 Body temperature 98.01 [degF] Rogelio Panda CNP Work Phone: [facility] 08-30-2024 09:58-0400 Body weight 107.91 kg Rogelio Panda CNP Work Phone: [facility] 08-30-2024 09:58-0400 Diastolic blood pressure 78 mm[Hg] Rogelio Panda CNP Work Phone: [facility] 08-30-2024 09:58-0400 Heart rate 60 /min Rogelio Panda CNP Work Phone: [facility] 08-30-2024 09:58-0400 SaO2% (BldA) [Mass fraction] 95 % Rogelio Panda CNP Work Phone: [facility] 08-30-2024 09:58-0400 Systolic blood pressure 125 mm[Hg] Rogelio Panda CNP Work Phone: [facility] 07-13-2024 10:17-0400 Diastolic blood pressure 98 mm[Hg] Patricia Lozano MD Work Phone: [facility] 07-13-2024 10:17-0400 Heart rate 54 /min Patricia Lozano MD Work Phone: [facility] 07-13-2024 10:17-0400 SaO2% (BldA) [Mass fraction] 93 % Patricia Lozano MD Work Phone: [facility] 07-13-2024 10:17-0400 Systolic blood pressure 167 mm[Hg] Patricia Lozano MD Work Phone: [facility] 07-13-2024 10:15-0400 Body height 162.6 cm Patricia Lozano MD Work Phone: [facility] 07-13-2024 10:15-0400 Body mass index (BMI) [Ratio] 41.02 kg/m2 Patricia Lozano MD Work Phone: [facility] 07-13-2024 10:15-0400 Body temperature 98.49 [degF] Patricia Lozano MD Work Phone: [facility] 07-13-2024 10:15-0400 Body weight 108.41 kg Patricia Lozano MD Work Phone: [facility] 07-13-2024 10:15-0400 Respiratory rate 16 /min Patricia Lozano MD Work Phone: [facility] 04-12-2024 12:57-0400 Diastolic blood pressure 84 mm[Hg] Sara Alvarez MD Work Phone: [facility] 04-12-2024 12:57-0400 Heart rate 58 /min Sara Alvarez MD Work Phone: [facility] 04-12-2024 12:57-0400 Systolic blood pressure 129 mm[Hg] Sara Alvarez MD Work Phone: [facility] 04-12-2024 12:50-0400 Body height 162.6 cm Sara Alvarez MD Work Phone: [facility] 04-12-2024 12:50-0400 Body mass index (BMI) [Ratio] 39.99 kg/m2 Sara Alvarez MD Work Phone: [facility] 04-12-2024 12:50-0400 Body temperature 97.81 [degF] Sara Alvarez MD Work Phone: [facility] 04-12-2024 12:50-0400 Body weight 105.69 kg Sara Alvarez MD Work Phone: [facility] 04-12-2024 12:50-0400 Respiratory rate 16 /min Sara Alvarez MD Work Phone: [facility] 04-12-2024 12:50-0400 SaO2% (BldA) [Mass fraction] 93 % Sara Alvarez MD Work Phone: [facility] 11-17-2023 13:23-0500 Body height 162.6 cm Steven Alfaro MD Work Phone: [facility] 11-17-2023 13:23-0500 Body mass index (BMI) [Ratio] 41.61 kg/m2 Steven Alfaro MD Work Phone: [facility] 11-17-2023 13:23-0500 Body weight 109.95 kg Steven Alfaro MD Work Phone: [facility] 11-17-2023 13:23-0500 Diastolic blood pressure 72 mm[Hg] Steven Alfaro MD Work Phone: [facility] 11-17-2023 13:23-0500 Heart rate 68 /min Steven Alfaro MD Work Phone: [facility] 11-17-2023 13:23-0500 SaO2% (BldA) [Mass fraction] 92 % Steven Alfaro MD Work Phone: [facility] 11-17-2023 13:23-0500 Systolic blood pressure 126 mm[Hg] Steven Alfaro MD Work Phone: [facility] 2023 13:17-0400 Body height 162.6 cm Chris Grider MD Work Phone: [facility] 2023 13:17-0400 Body mass index (BMI) [Ratio] 40.68 kg/m2 Chris Grider MD Work Phone: [facility] 2023 13:17-0400 Body temperature 98.4 [degF] Chris Grider MD Work Phone: [facility] 2023 13:17-0400 Body weight 107.5 kg Chris Grider MD Work Phone: [facility] 05-15-2023 13:23-0400 Body height 162.6 cm Steven Alfaro MD Work Phone: [facility] 05-15-2023 13:23-0400 Body mass index (BMI) [Ratio] 40.22 kg/m2 Steven Alfaro MD Work Phone: [facility] 05-15-2023 13:23-0400 Body weight 106.28 kg Steven Alfaro MD Work Phone: [facility] 05-15-2023 13:23-0400 Diastolic blood pressure 72 mm[Hg] Steven Alfaro MD Work Phone: [facility] 05-15-2023 13:23-0400 Heart rate 64 /min Steven Alfaro MD Work Phone: [facility] 05-15-2023 13:23-0400 SaO2% (BldA) [Mass fraction] 98 % Steven Alfaro MD Work Phone: [facility] 05-15-2023 13:23-0400 Systolic blood pressure 119 mm[Hg] Steven Alfaro MD Work Phone: [facility] 11-12-2022 13:43-0500 Body height 162.56 cm Stevne Alfaro Work Phone: [facility] [facility] Work Phone: 11-12-2022 13:43-0500 Body mass index (BMI) [Ratio] 40.18 kg/m2 Steven Alfaro Work Phone: [employer] [facility] Work Phone: 11-12-2022 13:43-0500 Body surface area Derived from formula 2.09 m2 Steven Alfaro Work Phone: [employer] [facility] Work Phone: 11-12-2022 13:43-0500 Body weight 106.17 kg Steven Alfaro Work Phone: [employer] [facility] Work Phone: 11-12-2022 13:43-0500 Diastolic blood pressure 78 mm[Hg] Steven Alfaro Work Phone: [facility] [facility] Work Phone: 11-12-2022 13:43-0500 Heart rate 70 /min Steven Alfaro Work Phone: [facility] Work Phone: 11-12-2022 13:43-0500 SaO2% (BldA) [Mass fraction] 95 % Steven Alfaro Work Phone: [facility] Work Phone: 11-12-2022 13:43-0500 Systolic blood pressure 122 mm[Hg] Steven Alfaro Work Phone: [facility] Work Phone: 04-12-2022 13:44-0400 Body height 162.56 cm Steven Alfaro Work Phone: [facility] Work Phone: 04-12-2022 13:44-0400 Body mass index (BMI) [Ratio] 40.51 kg/m2 Steven Alfaro Work Phone: [facility] Work Phone: 04-12-2022 13:44-0400 Body surface area Derived from formula 2.1 m2 Steven Alfaro Work Phone: [facility] Work Phone: 04-12-2022 13:44-0400 Body weight 107.05 kg Stevne Alfaro Work Phone: [facility] Work Phone: 04-12-2022 13:44-0400 Diastolic blood pressure 78 mm[Hg] Steven Alfaro Work Phone: [facility] Work Phone: 04-12-2022 13:44-0400 Heart rate 58 /min Steven Alfaro Work Phone: [facility] Work Phone: 04-12-2022 13:44-0400 SaO2% (BldA) [Mass fraction] 94 % Steven T Furness Work Phone: [facility] Work Phone: 04-12-2022 13:44-0400 Systolic blood pressure 120 mm[Hg] Steven T Furness Work Phone: [facility] Work Phone: 03-13-2022 13:02-0400 Diastolic blood pressure 65 mm[Hg] Steven Furness Other Phone: [facility] 03-13-2022 13:02-0400 Heart rate 69 /min Steven Furness Other Phone: [facility] 03-13-2022 13:02-0400 Respiratory rate 16 /min Steven Furness Other Phone: [facility] 03-13-2022 13:02-0400 SaO2% (BldA) [Mass fraction] 96 % Steven Furness Other Phone: [facility] 03-13-2022 13:02-0400 Systolic blood pressure 134 mm[Hg] Steven Furness Other Phone: [facility] 03-13-2022 11:17-0400 Body height 162.5 cm Steven Furness Other Phone: [facility] 03-13-2022 11:17-0400 Body temperature 96.8 [degF] Steven Furness Other Phone: [facility] 03-13-2022 11:17-0400 Body weight 105.9 kg Steven Furness Other Phone: [facility] 02-13-2022 11:18-0400 Body height 162.[address] Steven Alfaro Work Phone: [facility] Work Phone: 02-13-2022 11:18-0400 Body mass index (BMI) [Ratio] 40.6 kg/m2 Dr. Steven Alfaro Work Phone: [facility] Work Phone: 02-13-2022 11:18-0400 Body temperature 97.2 [degF] Dr. Steven Alfaro Work Phone: [facility] Work Phone: 02-13-2022 11:18-0400 Body weight 107.[address] Steven Alfaro Work Phone: [facility] Work Phone: 02-13-2022 11:18-0400 Diastolic blood pressure 74 mm[Hg] Dr. Steven Alfaro Work Phone: [facility] Work Phone: 02-13-2022 11:18-0400 Heart rate 58 /min Dr. Steven Alfaro Work Phone: [facility] Work Phone: 02-13-2022 11:18-0400 Respiratory rate 17 /min Dr. Steven Alfaro Work Phone: [facility] Work Phone: 02-13-2022 11:18-0400 SaO2% (BldA) [Mass fraction] 93 % Dr. Steven Alfaro Work Phone: [facility] Work Phone: 02-13-2022 11:18-0400 Systolic blood pressure 120 mm[Hg] Dr. Steven Alfaro Work Phone: [facility] Work Phone: 01-18-2022 10:41-0400 Body mass index (BMI) [Ratio] 40.3 kg/m2 Dr. Steven Alfaro Work Phone: [facility] Work Phone: 01-18-2022 10:41-0400 Body temperature 98.2 [degF] Dr. Steven Alfaro Work Phone: [facility] Work Phone: 01-18-2022 10:41-0400 Body weight 106.[address] Steven Alfaro Work Phone: [facility] Work Phone: 01-18-2022 10:41-0400 Diastolic blood pressure 59 mm[Hg] Dr. Stevne Alfaro Work Phone: [facility] Work Phone: 01-18-2022 10:41-0400 Heart rate 60 /min Dr. Steven Alfaro Work Phone: [facility] Work Phone: 01-18-2022 10:41-0400 Respiratory rate 17 /min Dr. Steven Alfaro Work Phone: [facility] Work Phone: 01-18-2022 10:41-0400 SaO2% (BldA) [Mass fraction] 94 % Dr. Steven Alfaro Work Phone: [facility] Work Phone: 01-18-2022 10:41-0400 Systolic blood pressure 123 mm[Hg] Dr. Steven Alfaro Work Phone: [facility] Work Phone: 04-09-2021 13:58-0400 Body height 162.56 cm Steven Alfaro Work Phone: -[facility] Work Phone: 04-09-2021 13:58-0400 Body mass index (BMI) [Ratio] 41.98 kg/m2 Steven Alfaro Work Phone: -[facility] Work Phone: 04-09-2021 13:58-0400 Body surface area Derived from formula 2.13 m2 Steven Alfaro Work Phone: -[employer] [facility] Work Phone: 04-09-2021 13:58-0400 Body temperature 97.7 [degF] Steven Alfaro Work Phone: [facility] Work Phone: 04-09-2021 13:58-0400 Body weight 110.93 kg Steven Alfaro Work Phone: [facility] Work Phone: 04-09-2021 13:58-0400 Diastolic blood pressure 76 mm[Hg] Steven Alfaro Work Phone: [facility] Work Phone: 04-09-2021 13:58-0400 Heart rate 56 /min Steven Alfaro Work Phone: [facility] Work Phone: 04-09-2021 13:58-0400 SaO2% (BldA) [Mass fraction] 91 % Steven Alfaro Work Phone: [facility] Work Phone: 04-09-2021 13:58-0400 Systolic blood pressure 120 mm[Hg] Steven Alfaro Work Phone: [facility] Work Phone: 03-31-2020 10:47-0400 BMI (Body Mass Index) 40.37 kg/m2 Steven Alfaro [facility] Work Phone: 03-31-2020 10:47-0400 Body Temperature 95.7 [degF] Steven Alfaro [facility] Work Phone: 03-31-2020 10:47-0400 Body weight 106.68 kg Steven Alfaro [facility] Work Phone: 03-31-2020 10:47-0400 BP Diastolic 72 mm[Hg] Steven Alfaro [facility] Work Phone: 03-31-2020 10:47-0400 BP Systolic 120 mm[Hg] Steven Alfaro [facility] Work Phone: 03-31-2020 10:47-0404 BSA (Body Surface Area) 2.1 m2 Steven Alfaro -[facility] Work Phone: 03-31-2020 10:47-0406 Height 162.56 cm Steven Alfaro -[facility] Work Phone: 03-31-2020 10:47-0400 Pulse (Heart Rate) 58 /min Steven Aflaro -[facility] Work Phone: 03-31-2020 10:47-0400 Pulse Oximetry 96 % Steven Alfaro -[facility] Work Phone: Encounters Encounter Date Encounter Type Care Provider Facility Start: 05-13-2025 End: 05-13-[address] Steven Alfaro MD Work Phone: -[facility] Start: 05-13-2025 End: 05-13-2025 Patient encounter procedure Padma Pérez [employer] -[facility] Work Phone: Start: 04-19-2025 End: 04-19-2025 Office outpatient visit 25 minutes Еелна Bourne CNP Work Phone: [facility] Comment on above: COPD with acute exac erbation (HCC) (Primary Dx) Start: 04-19-2025 End: 04-19-20[facility] Start: 04-01-2025 End: 04-01-2025 ambulatory SARA COKER [facility] Ambulatory Start: 04-01-2025 End: 04-01-2025 Office outpatient visit 25 minutes Sara Alvarez MD Work Phone: [facility] Comment on above: Anxiety (Primary Dx) ; Gastroesophageal reflux disease, unspecified whether esophagitis present; Moderate major depression (HCC); Severe persistent asthma without complication; Mild major depression; Current moderate episode of major depressive disorder without prior episode (HCC); Chronic diastolic congestive heart failure (HCC) Start: 03-10-2025 End: 03-10-2025 Office outpatient visit 25 minutes Diana Beatty DO Work Phone: [facility] Comment on above: Upper respiratory tr act infection, unspecified type (Primary Dx); COPD with acute exacerbation (HCC) Start: 03-10-2025 End: 03-10-2025 ambulatory SARA PETERSONHAM [facility] Ambulatory Start: 02-16-2025 End: 02-16-2025 Office outpatient visit 15 minutes [facility] POTTER OR CERAMIC ARTIST Work Phone: [facility] Comment on above: PE (pulmonary thromb oembolism) (HCC) (Primary Dx); Acute deep vein thrombosis (DVT) of right peroneal vein (HCC); Nicotine dependence, cigarettes, in remission; COPD with asthma (HCC) Start: 02-16-2025 End: 02-16-2025 ambulatory [facility] Start: 02-14-2025 End: 02-14-2025 ambulatory [facility] Start: 02-10-2025 End: 02-10-2025 Office outpatient visit 25 minutes Елена Bourne POTTER OR CERAMIC ARTIST Work Phone: [facility] Comment on above: Acute non-recurrent maxillary sinusitis (Primary Dx); COPD with acute exacerbation (HCC) Start: 02-10-2025 End: 02-10-2025 ambulatory SARA COKER [facility] Ambulatory Start: 01-11-2025 End: 01-11-2025 ambulatory Padma Pérez NP Facility[place] Start: 12-23-2024 ambulatory SARA ALEGRE [facility] Amb[facility] Start: 11-22-2024 End: 11-22-2024 Office outpatient visit 25 minutes Sara Alvarez MD Work Phone: [facility] Comment on above: Seasonal allergic rh initis due to pollen (Primary Dx); PE (pulmonary thromboembolism) (HCC); Mild major depression; Current moderate episode of major depressive disorder without prior episode (HCC); Severe persistent asthma without complication; Hypothyroidism, unspecified type; Mild persistent asthma without complication; Hyperlipidemia, unspecified hyperlipidemia type; Morbid obesity with body mass index (BMI) of 40.0 or higher (HCC); Hypercholesterolemia Seasonal allergic rh initis due to pollen (Primary Dx); PE (pulmonary thromboembolism) (HCC); Mild major depression; Current moderate episode of major depressive disorder without prior episode (HCC); Severe persistent asthma without complication; Hypothyroidism, unspecified type; Mild persistent asthma without complication; Hyperlipidemia, unspecified hyperlipidemia type; Morbid obesity with body mass index (BMI) of 40.0 or higher (HCC); Hypercholesterolemia; JOHNATHAN on CPAP Start: 11-22-2024 End: 11-22-2024 [facility] Start: 11-17-2024 End: 11-17-2024 Office outpatient visit 15 minutes [facility] Work Phone: [facility] Comment on above: PE (pulmonary thromb oembolism) (HCC) (Primary Dx); Deep venous thrombosis (DVT) of right peroneal vein, unspecified chronicity (HCC); Nicotine dependence, cigarettes, in remission; COPD with asthma (HCC); Pulmonary nodules Start: 11-17-2024 End: 11-17-2024 ambulatory [facility] Start: 10-28-2024 End: 10-28-2024 Office outpatient visit 25 minutes Sara Alvarez MD Work Phone: [facility] Comment on above: At low risk for fall (Primary Dx); COPD with asthma (HCC); Cough, unspecified type; COPD with acute exacerbation (HCC) Start: 10-28-2024 End: 10-28-2024 ambulatory SARA ALVAREZ [facility] Start: 10-21-2024 End: 10-21-2024 ambulatory Melissa Enrique RN [facility] Start: 10-19-2024 End: 10-20-2024 Emergency department patient visit Arnel Gan MD Work Phone: [facility] Start: 10-19-2024 End: 10-20-2024 ambulatory [facility] Start: 10-18-2024 End: 10-18-2024 Office outpatient new 45 minutes Jens Ibanez MD Work Phone: [facility] Comment on above: Congestive heart joleen lure, unspecified HF chronicity, unspecified heart failure type (HCC) (Primary Dx); COPD with asthma (HCC); Shortness of breath; PE (pulmonary thromboembolism) (HCC); Pulmonary hypertension (HCC) Start: 10-18-2024 End: 10-18-2024 ambulatory [facility] Ambulatory Start: 09-16-2024 End: 09-16-2024 Office outpatient visit 25 minutes Елена Bourne POTTER OR CERAMIC ARTIST Work Phone: [facility] Comment on above: 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); COPD with asthma (HCC) Start: 09-16-2024 End: 09-16-2024 Refill Sara Alvarez MD Work Phone: [facility] Start: 09-15-2024 End: 09-15-2024 ambulatory [facility] Start: 08-30-2024 End: 08-30-2024 Office outpatient new 45 minutes [facility] POTTER OR CERAMIC ARTIST Work Phone: [facility] Comment on above: PE (pulmonary thromb oembolism) (HCC) (Primary Dx); Deep vein thrombosis of peroneal vein, right (HCC); Vaping nicotine dependence, non-tobacco product; COPD with asthma (HCC) Start: 08-30-2024 End: 08-30-2024 ambulatory [facility] Start: 08-30-2024 End: 08-30-2024 ambulatory [facility] Start: 08-14-2024 [facility] Start: 08-05-2024 End: 08-05-2024 ambulatory PROVIDER NOT IN SYSTEM [facility] Start: 08-04-2024 End: 08-04-2024 [facility] Start: 08-03-2024 End: 08-03-2024 ambulatory SARA HELMS [facility] Start: 07-30-2024 End: 07-30-2024 Emergency department patient visit SARA COKER [facility] Start: 07-29-2024 End: 07-29-2024 ambulatory PATRICIA LOAZNO [facility] Start: 07-25-2024 End: 07-27-2024 Evaluation and management of inpatient BOBY HELTON [facility] Start: 07-24-2024 End: 07-24-2024 [facility] Start: 07-13-2024 End: 07-13-2024 Office outpatient new 45 minutes Patricia Lozano MD Work Phone: [facility] Comment on above: Acute bronchitis, un specified organism (Primary Dx); COPD with asthma (HCC); Simple chronic bronchitis (HCC); Seasonal allergies; Nicotine dependence, cigarettes, in remission; Vaping nicotine dependence, non-tobacco product; Shortness of breath; Wheezing; JOHNATHAN on CPAP Start: 07-13-2024 End: 07-13-2024 [facility]: 04-27-2024 End: 04-27-2024 Refill Sara Alvarez MD Work Phone: [facility] Start: 04-20-2024 End: 04-20-2024 [facility]: 04-19-[facility]24 [facility] Start: 04-15-2024 Orders Only Sara Alvarez MD Work Phone: [facility] Comment on above: COPD with asthma (HC C) (Primary Dx) Start: 04-13-2024 ambulatory Sherrie HERNANDES [facility] Start: 04-12-2024 End: 04-16-2024 ambulatory SARA ALVAREZ [facility] Start: 04-12-2024 End: 04-12-2024 Office outpatient new 45 minutes Sara Alvarez MD Work Phone: [facility] Comment on above: COPD with asthma (HC C) (Primary Dx); Current moderate episode of major depressive disorder without prior episode (HCC); Severe obesity (HCC); Hyperlipidemia, unspecified hyperlipidemia type; COPD with acute exacerbation (HCC) Start: 11-17-2023 End: 11-17-2023 ambulatory [facility] Start: 11-17-2023 End: 11-17-2023 Office outpatient visit 25 minutes Steven Alfaro MD Work Phone: [facility] Comment on above: Chronic obstructive pulmonary disease, unspecified COPD type (CMS/HCC) (Primary Dx); Acquired hypothyroidism; Hyperglycemia; Current moderate episode of major depressive disorder without prior episode (CMS/HCC); Obstructive sleep apnea syndrome Start: 2023 End: 2023 Office outpatient new 45 minutes Chris Grider MD Work Phone: [facility] Comment on above: Vestibular migraine (Primary Dx); Impacted cerumen of right ear; Sebaceous cyst of ear; Sensorineural hearing loss, bilateral; Vertigo Start: 05-15-2023 End: 05-15-2023 ambulatory [facility] Start: 05-15-2023 End: 05-15-2023 Encounter for general adult medical examination without abnormal findings [facility] Start: 05-15-2023 End: 05-15-2023 Assay of hemosiderin, quant Steven Alfaro MD Work Phone: [facility] Work Phone: Start: 05-15-2023 End: 05-15-2023 Patient encounter procedure Steven Alfaro MD Work Phone: [facility] Comment on above: Routine general medi misti examination at health care facility (Primary Dx); Chronic obstructive pulmonary disease, unspecified COPD type ([facility]); Hyperlipidemia, unspecified hyperlipidemia type; Gastroesophageal reflux disease, unspecified whether esophagitis present; Anxiety; Hyperglycemia; Hypothyroidism due to acquired atrophy of thyroid; Obstructive sleep apnea syndrome; Edema of both lower legs Start: 01-02-2023 AUDIT Steven Beau Lluvia scruggs Work Phone: [facility] Work Phone: Start: 11-25-2022 AUDIT Steven Beau Lluvia scruggs Work Phone: [facility] Work Phone: Start: 11-12-2022 Office outpatient vi sit 25 minutes Steven Beau Teixeirakael Work Phone: [facility] Work Phone: Start: 11-12-[address] Steven Fuller rrpaulo [employer] Facility:[id number] Start: 08-27-2022 AUDIT Steven Beau Teixeira kael Work Phone: [facility] Work Phone: Start: 08-26-2022 End: 08-26-2022 ambulatory [facility] Work Phone: Start: 08-26-2022 End: 08-26-2022 Patient encounter procedure [facility] Scan, [facility] Start: 07-23-2022 AUDIT Steven Beau Lluvia scruggs Work Phone: [facility] Work Phone: Start: 06-24-2022 AUDIT Steven Beau Lluvia scruggs Work Phone: [facility] Work Phone: Start: 05-29-2022 AUDIT Steven Beau Lluvia scurggs Work Phone: [facility] Work Phone: Start: 05-29-[address] Steven Fuller rrpaulo [employer] Facility:[id number] Start: 04-16-2022 AUDIT Steven Teixeira kael Work Phone: [facility] Work Phone: Start: 04-12-2022 Adv care pln/ no alt dcsn mkr docd or refusal Steven Alfaro Work Phone: [employer] Work Phone: Start: 04-04-2022 Chart Update Steven Teixeira kael Work Phone: [facility] Work Phone: Start: 03-13-2022 Patient encounter procedure Steven Alfaro Work Phone: [facility] Work Phone: Start: 03-13-2022 End: 03-13-2022 Emergency department patient visit Xochitl Will [facility] Start: 02-13-2022 End: 02-13-[address] [facility] Start: 02-06-2022 End: 02-06-[address] Steven Alfaro Work Phone: [facility] Start: 01-18-2022 End: 01-18-[address] Steven Alfaro Work Phone: [facility] Start: 09-03-2021 AUDIT Steven scruggs Work Phone: [facility] Work Phone: Start: 05-11-2021 AUDIT Steven scruggs Work Phone: [facility] Work Phone: Start: 04-11-2021 PH2 PULClarke F, Provider : [facility],[id number], Status: Pen, Time: 9:00 AM Steven Alfaro Work Phone: [facility] Work Phone: Start: 04-09-2021 Office outpatient vi sit 25 minutes Steven Alfaro Work Phone: [employer] [facility] Work Phone: Start: 03-28-2021 PH2 ANÍBAL F, Provider : [facility],[id number], Status: Pen, Time: 9:00 AM Steven Alfaro Work Phone: [employer] [facility] Work Phone: Start: 03-26-2021 Chart Update Steven scruggs Work Phone: [employer] [facility] Work Phone: Start: 03-31-2020 Patient encounter procedure Steven Alfaro [employer] [facility] Work Phone: Start: 10-18-2019 Patient encounter procedure Steven Alfaro [employer] [facility] Work Phone: Start: 09-17-2019 Patient encounter procedure Steven Alfaro [employer] [facility] Work Phone: Start: 08-17-2019 Patient encounter procedure Steven Alfaro [employer] [facility] Work Phone: Start: 11-13-2014 Adelaida Fernandes MD Work Phone: [facility] Patient encounter procedure Steven Alfaro Work Phone: [employer] [facility] Work Phone: Procedures Date Procedure Procedure Detail Performing Clinician Start: 03-10-2025 Infectious agent dna /rna influenza 1st 2 types Diana Beatty DO Work Phone: Start: 03-10-2025 Sars-cov-2 detection by dna/rna Diana Beatty DO Work Phone: Start: 10-20-2024 Cta hrt cornry art/b ypass grfts contrst 3d post Kimjuan pablo Lyons POTTER OR CERAMIC ARTIST Work Phone: Start: 10-20-2024 TTE w or wo fol wcon,Doppler Kylah Hendricks PA-C Work Phone: Start: 10-20-2024 Basic metabolic pane l calcium total Kylah Hendricks PA-C Work Phone: Start: 10-19-2024 Electrocardiogram Gener ic [facility] Work Phone: Start: 10-19-2024 Assay of troponin quantitative Arnel Gan MD Work Phone: Start: 10-19-2024 Radiologic exam ches t single view Arnel Gan MD Work Phone: Start: 10-19-2024 Basic metabolic pane l calcium total Arnel Gan MD Work Phone: Start: 10-19-2024 Ecg routine ecg w/le ast 12 lds w/i&r Arnel Gan MD Work Phone: Start: 08-04-2024 Mammography Rogelio Canf ield POTTER OR CERAMIC ARTIST Work Phone: Start: 11-17-2023 FOLLOW UP IN FAMILY MEDICINE STEVEN ALFARO Start: 05-07-2023 Lipid 1996 panel - S elizabeth or Plasma Steven Alfaro MD Work Phone: Start: 05-07-2023 Thyrotropin [Units/v olume] in Serum or Plasma Steven Alfaro MD Work Phone: Start: 08-26-2022 CT of chest Start: 04-15-2022 Mammography Steven arellano MD Work Phone: Start: 02-06-2022 Bacteria identificat ion test Dr. Steven Alfaro Work Phone: Start: 02-06-2022 Microscopic observat ion [Identifier] in Unspecified specimen by Gram stain Dr. Steven Alfaro Work Phone: Start: 03-31-2020 Assay of thyroid stimulating hormone tsh Steven Alfaro Start: 03-31-2020 CBC W Auto Different ial panel - Blood Steven Alfaro Start: 03-31-2020 Comprehensive metabo lic 2000 panel Steven Alfaro Start: 03-31-2020 Hemoglobin glycosyla kyle a1c Steven Alfaro Start: 03-31-2020 Lipid panel Steven Ramiro rness Start: 03-31-2020 MG Breast screening Tootie Teixeirakael Start: 05-18-2019 Colonoscopy Mayra pugh MD Work Phone: Start: 05-18-2019 Colonoscopy Steven T Angelina Work Phone: Comment on above: thomae, 5 years; Start: 08-30-2014 Mammography Mayra pugh MD Work Phone: Colonoscopy Steven Alfaro Cystoscopy Steven Angelina H/O: hysterectomy History of par tial hysterectomy Dr. Steven Alfaro Work Phone: Hysterectomy Steven Alfaro Nasal septoplasty Steven Rubio rness Tonsillectomy Steven Moreno s Plan of Treatment Date Care Activity Detail Author Start: 05-29-2032 DTaP/Tdap/Td Vaccine s (4 - Td or Tdap) DTaP/Tdap/Td Vaccines (4 - Td or Tdap) [facility] Start: 05-29-2032 Tetanus vaccination Tetanus: Every 1 0yrs [facility] Start: 05-18-2029 Screening for malign ant neoplasm of colon [facility] Start: 05-07-2028 Lipid panel Lipid Panel [facility] Start: 08-16-2027 Screening for malign ant neoplasm of colon [facility] Start: 10-27-2025 Fall risk assessment Falls Risk Asse ssment [facility] Start: 08-04-2025 Screening for malign ant neoplasm of breast Mammogram [facility] Start: 07-29-2025 Screening for malign ant neoplasm of lung Low-dose CT Lung Cancer Screen [facility] Start: 05-24-2025 End: 05-24-2025 Patient encounter procedure 05/24/2025 2:00 PM EDT Office Visit [facility] [place] [address] Sara Alvarez MD [address] [address] [facility] Start: 02-16-2025 End: 02-16-2025 Patient encounter procedure 02/16/2025 11:00 AM EDT Office Visit [facility] [address] [address] Rogelio Panda, POTTER OR CERAMIC ARTIST [address] [facility] [place] [address] [facility] Start: 02-14-2025 End: 02-14-2025 Patient encounter procedure 02/14/2025 1:00 PM EDT Appointment [facility] [address] [place] [address] [place] [address] Rogelio Panda, POTTER OR CERAMIC ARTIST [address] [place] [address] [facility] Start: 02-10-2025 Depression Remission Assessment (PHQ9) Depression Remission Assessment (PHQ9) [facility] Start: 02-02-2025 COVID-19 Vaccine () COVID-19 Vaccine () [facility] Start: 11-22-2024 End: 11-22-2024 Patient encounter procedure 11/22/2024 1:40 PM EST Office Visit [facility] [address] [place] [address] Sara Alvarez MD [address] [address] [facility] Start: 11-01-2024 End: 11-01-2024 Patient encounter procedure 11/01/2024 10:15 AM EST Office Visit [facility] [address] [place] [address] Rogelio Panda, POTTER OR CERAMIC ARTIST 335 [facility] [place] [address] [facility] Start: 10-28-2024 End: 10-28-2024 Patient encounter procedure 10/28/2024 7:00 AM EST Appointment [facility] [address] [place] [address] [place] [address] Jens Ibanez MD [address] [place] [address] [facility] Start: 10-25-2024 End: 12-19-2025 Echocardiography Echocardiogram complete Echocardiography Routine Congestive heart failure, unspecified HF chronicity, unspecified heart failure type (HCC) COPD with asthma (HCC) Shortness of breath Expected: 10/25/2024 (Approximate), Expires: 12/19/2025 [facility] Work Phone: Comment on above: Expected: 10/25/2024 (Approximate), Expires: 12/19/2025 Start: 10-22-2024 End: 10-29-2025 Ultrasound duplex venous leg right Ultrasound duplex venous leg right Vascular Ultrasound Routine PE (pulmonary thromboembolism) (HCC) Deep vein thrombosis of peroneal vein, right (HCC) Expected: 10/22/2024, Expires: 10/29/2025 [facility] Comment on above: Expected: 10/22/2024 , Expires: 10/29/2025 Start: 10-18-2024 End: 10-18-2024 Patient encounter procedure 10/18/2024 10:00 AM EST Office Visit [facility] Lorena Peterson[address] [place] [address] Jens Ibanez MD [address] [place] [address] [facility] Start: 10-12-2024 End: 10-12-2024 Patient encounter procedure 10/12/2024 1:00 PM EST Office Visit [facility] [address] [place] [address] Brianna Navarro, POTTER OR CERAMIC ARTIST [address] [place] [address] [facility] Start: 09-29-2024 Administration of he rpes zoster vaccine Zoster Vaccines (3 of 3) [facility] Start: 08-30-2024 End: 08-29-2025 Factor V Leiden genotype Factor V (F5) Leiden Mutation ([id number]) Lab Routine PE (pulmonary thromboembolism) (HCC) Deep vein thrombosis of peroneal vein, right (HCC) Expected: 08/30/2024, Expires: 08/29/2025 [facility] Work Phone: Comment on above: Expected: 08/30/2024 , Expires: 08/29/2025 Start: 07-29-2024 End: 07-29-2024 Patient encounter procedure 07/29/2024 8:40 AM EDT Office Visit [facility] [address] [place] [phone] Sara Alvarez MD [address] [address] [facility] Start: 07-04-2024 COVID-19 Vaccine ( season) COVID-19 Vaccine ( season) [facility] Start: 07-04-2024 Influenza vaccination Influenza Vacc ine (#1) [facility] Start: 05-18-2024 End: 05-18-2024 Patient encounter procedure 05/18/2024 1:20 PM EDT Office Visit [facility] [address] [place] [address] Steven Alfaro MD [address] [place] [address] [facility] Start: 05-16-2024 Medicare Annual Well ness Visit Medicare Annual Wellness Visit (AWV) [facility] Start: 05-15-2024 History and physical examination, annual for health maintenance Wellness Visit [facility] Start: 05-15-2024 Medicare Wellness Visit Medicare Wel lness Visit [facility] Start: 05-14-2024 End: 05-14-2024 Patient encounter procedure 05/14/2024 10:00 AM EDT Office Visit [facility] [address] [place] [address] Patricia Lozano MD [address] [place] [address] [facility] Start: 05-07-2024 Thyroid stimulating hormone measurement TSH Level [facility] Start: 04-20-2024 End: 04-20-2024 Patient encounter procedure 04/20/2024 8:00 AM EDT Appointment [facility] [address] [place] [address] Sara Alvarez MD [address] [address] [facility] Start: 11-17-2023 End: 11-17-2023 Patient encounter procedure 11/17/2023 1:20 PM EST Office Visit [facility] [address] [place] [address] Steven Alfaro MD [address] [place] [address] [facility] Start: 09-15-2023 End: 09-15-2023 Patient encounter procedure 09/15/2023 1:00 PM EST [facility] Visit [facility] [address] [place] [address] Chris Grider MD [address] [address] [facility] Start: 08-26-2023 Screening for malign ant neoplasm of lung Low-dose CT Lung Cancer Screen [facility] Start: 07-04-2023 COVID-19 Vaccine ( season) COVID-19 Vaccine ( season) [facility] Start: 07-04-2023 Influenza vaccination [facility] Start: 05-15-2023 EPV, Provider: Steven Alfaro, Status: Francois, Time: 1:20 PM EPV, Provider: Steven Alfaro, Status: Francois, Time: 1:20 PM [facility] Work Phone: Start: 05-15-2023 End: 05-15-2024 CBC panel - Blood by Automated count CBC Lab Routine Hyperglycemia Expected: 05/15/2023 (Approximate), Expires: 05/15/2024 [facility] Service Area Work Phone: Comment on above: Expected: 05/15/2023 (Approximate), Expires: 05/15/2024 Start: 05-15-2023 End: 05-15-2024 Comprehensive metabolic 2000 panel - Serum or Plasma Comprehensive Metabolic Panel Lab Routine Hyperglycemia Expected: 05/15/2023 (Approximate), Expires: 05/15/2024 [facility] Work Phone: Comment on above: Expected: 05/15/2023 (Approximate), Expires: 05/15/2024 Start: 05-15-2023 End: 05-15-2024 Hemoglobin A1c/Hemoglobin.total in Blood Hemoglobin A1C Lab Routine Hyperglycemia Expected: 05/15/2023 (Approximate), Expires: 05/15/2024 [facility] Work Phone: Comment on above: Expected: 05/15/2023 (Approximate), Expires: 05/15/2024 Start: 05-15-2023 End: 05-15-2024 Thyrotropin [Units/volume] in Serum or Plasma Thyroid Stimulating Hormone Lab Routine Hypothyroidism due to acquired atrophy of thyroid Expected: 05/15/2023 (Approximate), Expires: 05/15/2024 [facility] Work Phone: Comment on above: Expected: 05/15/2023 (Approximate), Expires: 05/15/2024 Start: 04-15-2023 Screening for malign ant neoplasm of breast Mammogram [facility] Start: 10-11-2022 EPV, Provider: Steven Alfaro, Status: Francois, Time: 1:40 PM EPV, Provider: Steven Alfaro, Status: Pen, Time: 1:40 PM [facility] Work Phone: Start: 10-09-2022 COVID-19 Vaccine (3 - Booster for Torey series) COVID-19 Vaccine (3 - Booster for Torey series) [facility] Start: 07-04-2022 Influenza vaccination Sequenti al Influenza Vaccine (#1) [facility] Start: 04-12-2022 Patient encounter procedure [facility] [place] Start: 10-30-2021 COVID-19 Vaccine (3 - Booster for Torey series) COVID-19 Vaccine (3 - Booster for Torey series) [facility] Start: 10-09-2021 EPV, Provider: Steven Alfaro, Status: Pen, Time: 1:40 PM EPV, Provider: Steven Alfaro, Status: Pen, Time: 1:40 PM [facility] Work Phone: Start: 04-27-2021 PH2 PULM F, Provider : [facility],[id number], Status: Pen, Time: 9:00 AM PH2 PULM F, Provider: [facility],[id number], Status: Pen, Time: 9:00 AM [facility] Work Phone: Start: 04-25-2021 PH2 PULM F, Provider : [facility],[id number], Status: Pen, Time: 9:00 AM PH2 PULM F, Provider: [facility],[id number], Status: Pen, Time: 9:00 AM [facility] Work Phone: Start: 04-23-2021 PH2 PULM F, Provider : [facility],[id number], Status: Pen, Time: 9:00 AM PH2 PULM F, Provider: [facility],[id number], Status: Pen, Time: 9:00 AM [facility] Work Phone: Start: 04-20-2021 PH2 PULM F, Provider : [facility],[id number], Status: Pen, Time: 9:00 AM PH2 PULM F, Provider: [facility],[id number], Status: Pen, Time: 9:00 AM [facility] Work Phone: Start: 04-18-2021 PH2 PULM F, Provider : [facility],[id number], Status: Pen, Time: 9:00 AM PH2 PULM F, Provider: [facility],[id number], Status: Pen, Time: 9:00 AM [facility] Work Phone: Start: 04-16-2021 PH2 PULM F, Provider : [facility],[id number], Status: Pen, Time: 9:00 AM PH2 PULM F, Provider: [facility],[id number], Status: Pen, Time: 9:00 AM [facility] Work Phone: Start: 04-13-2021 PH2 PULM F, Provider : [facility],[id number], Status: Pen, Time: 9:00 AM PH2 PULM F, Provider: [facility],[id number], Status: Pen, Time: 9:00 AM [facility] Work Phone: Start: 04-11-2021 PH2 PULM F, Provider : [facility],[id number], Status: Pen, Time: 9:00 AM PH2 PULM F, Provider: [facility],[id number], Status: Pen, Time: 9:00 AM [facility] Work Phone: Start: 04-09-2021 EPV, Provider: Steven Alfaro, Status: Pen, Time: 2:00 PM EPV, Provider: Steven Alfaro, Status: Pen, Time: 2:00 PM [facility] Work Phone: Start: 04-09-2021 PH2 PULM F, Provider : [facility],[id number], Status: Pen, Time: 9:00 AM PH2 PULM F, Provider: [facility],[id number], Status: Pen, Time: 9:00 AM [facility] Work Phone: Start: 04-06-2021 PH2 PULM F, Provider : [facility],[id number], Status: Pen, Time: 9:00 AM PH2 PULM F, Provider: [facility],[id number], Status: Pen, Time: 9:00 AM [facility] Work Phone: Start: 04-04-2021 PH2 PULM F, Provider : [facility],[id number], Status: Pen, Time: 9:00 AM PH2 PULM F, Provider: [facility],[id number], Status: Pen, Time: 9:00 AM [facility] Work Phone: Start: 03-30-2021 PH2 PULM F, Provider : [facility],[id number], Status: Pen, Time: 9:00 AM PH2 PULM F, Provider: [facility],[id number], Status: Pen, Time: 9:00 AM [facility] Work Phone: Start: 03-31-2020 MG Breast screening Mamm - Scr eening Mammogram w/ Tomosynthesis [facility] Work Phone: Start: 02-24-2018 Tetanus vaccination Tetanus: Every 1 0yrs [facility] Start: 08-30-2015 Screening for malign ant neoplasm of breast [facility] [facility] Start: 2015 Fall risk assessment Falls Risk Sam cruz [facility] Start: 01-15-2011 Administration of he rpes zoster vaccine Zoster Vaccines (2 of 3) [facility] Start: 01-15-2011 Zoster Vaccines (2 of 3) Zoster Vacc colin (2 of 3) [facility] Start: 2010 Respiratory Syncytia l Virus Immunization: Risk, 60-74 Risk, or 75+ (1 - Risk 60-74 years 1-dose series) Respiratory Syncytial Virus Immunization: Risk, 60-74 Risk, or 75+ (1 - Risk 60-74 years 1-dose series) [facility] Start: 2000 Screening for malign ant neoplasm of colon Flexible sigmoidoscopy [facility] Start: 1968 Hepatitis C screening Hepatitis C Sc reening [facility] Start: 1953 History and physical examination, annual for health maintenance Wellness Visit [facility] Start: 1950 Medicare Annual Well ness Visit Medicare Annual Wellness Visit (AWV) [facility] Start: 1950 Screening for malign ant neoplasm of colon [facility] Start: 1950 Screening for osteoporosis Bone Density Scan [facility] Bacteria identified in Sputum by Culture [facility] CBC W Auto Different ial panel - Blood [facility] End: 04-15-2025 Complete PFT with Pre and Post Bronchodilator Complete PFT with Pre and Post Bronchodilator PFT Routine COPD with asthma (HCC) 1 Occurrences starting 04/15/2024 until 04/15/2025 [facility] Work Phone: Comment on above: 1 Occurrences starti ng 04/15/2024 until 04/15/2025 End: 11-22-2025 Comprehensive metabolic 2000 panel - Serum or Plasma Comprehensive Metabolic Panel Lab Routine Morbid obesity with body mass index (BMI) of 40.0 or higher (HCC) 1 Occurrences starting 11/22/2024 until 11/22/2025 [facility] Comment on above: 1 Occurrences starti ng 11/22/2024 until 11/22/2025 End: 07-13-2025 CT Chest for screening WO contrast CT Lung Cancer Screening Imaging Routine Nicotine dependence, cigarettes, in remission 1 Occurrences starting 07/13/2024 until 07/13/2025 [facility] Work Phone: Comment on above: 1 Occurrences starti ng 07/13/2024 until 07/13/2025 CTA Heart and Luna ry arteries WO and W contrast IV CT CCTA Heart With And Without Contrast Imaging Routine 10/20/2024 11:44 AM EST [facility] Work Phone: End: 08-29-2025 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) Lab Routine PE (pulmonary thromboembolism) (HCC) Deep vein thrombosis of peroneal vein, right (HCC) 1 Occurrences starting 08/30/2024 until 08/29/2025 [facility] Comment on above: 1 Occurrences starti ng 08/30/2024 until 08/29/2025 End: 11-22-2025 Hemoglobin A1c/Hemoglobin.total in Blood Hemoglobin A1c Lab Routine Morbid obesity with body mass index (BMI) of 40.0 or higher (HCC) 1 Occurrences starting 11/22/2024 until 11/22/2025 [facility] Comment on above: 1 Occurrences starti ng 11/22/2024 until 11/22/2025 IgE [Units/volume] i n Serum or Plasma [facility] End: 11-22-2025 Lipid 1996 panel - Serum or Plasma Lipid Panel Lab Routine Morbid obesity with body mass index (BMI) of 40.0 or higher (HCC) 1 Occurrences starting 11/22/2024 until 11/22/2025 [facility] Comment on above: 1 Occurrences starti ng 11/22/2024 until 11/22/2025 Measurement of respiratory function [facility] End: 11-22-2025 Thyrotropin [Units/volume] in Serum or Plasma TSH with Reflex Free T4 Lab Routine Morbid obesity with body mass index (BMI) of 40.0 or higher (HCC) 1 Occurrences starting 11/22/2024 until 11/22/2025 [facility] Work Phone: Comment on above: 1 Occurrences starti ng 11/22/2024 until 11/22/2025 End: 04-12-2025 XR Chest PA and Lateral and AP lateral-decubitus XR Chest AP/PA and LAT Imaging Routine COPD with acute exacerbation (HCC) 1 Occurrences starting 04/12/2024 until 04/12/2025 [facility] Work Phone: Comment on above: 1 Occurrences starti ng 04/12/2024 until 04/12/2025 XR Chest PA and Late ral and AP lateral-decubitus XR Chest AP/PA and LAT Imaging Routine COPD with acute exacerbation (HCC) 04/12/2024 2:16 PM EDT [facility] XR Chest PA and Late ral and AP lateral-decubitus XR Chest AP/PA and LAT Imaging STAT COPD with acute exacerbation (HCC) 10/28/2024 12:05 PM EST [facility] Work Phone: [facility] Work Phone: [facility] NEGATED: Highlighted row has been ruled out! Planned Goals not documented [facility] Work Phone: Immunizations Immunization Date Immunization Notes Care Provider Amparo ojeda 07-27-2024 influenza, high dose seasonal, preservative-free Rogelio Panda [facility] Work Phone: [facility] 07-19-2023 Flu vaccine, quadrivalent, high-dose, preservative free, age 65y+ (FLUZONE) Steevn Alfaro MD Work Phone: [facility] 07-19-2023 Pneumococcal conjuga te vaccine, 20-valent (PREVNAR 20) Steven Alfaro MD Work Phone: [facility] 07-19-2023 Respiratory Synctial Virus (Rsv), Unspecified Steven Alfaro MD Work Phone: [facility] Work Phone: 07-19-2023 influenza virus vacc ine, unspecified formulation Patricia Lozano MD Work Phone: [facility] 08-14-2022 Fluzone High-Dose Quadrivalent 0.7 ML Intramuscular Suspension Prefilled Syringe Steven Alfaro Work Phone: [facility] Comment on above: Series: 08-14-2022 Pfizer COVID-19 Vac Bivalent 30 MCG/0.3ML Intramuscular Suspension Steven Alfaro Work Phone: [facility] Comment on above: Series: 08-14-2022 influenza virus vacc ine, unspecified formulation Steven Alfaro MD Work Phone: [facility] Work Phone: 05-29-2022 tetanus toxoid, redu syl diphtheria toxoid, and acellular pertussis vaccine, adsorbed; Translations: [Tdap (Boostrix)] Stevengagan Teixeirakael Work Phone: [facility] Work Phone: Comment on above: Series: 09-04-2021 Pfizer-BioNT COVID-1 9 Vac-Gato 30 MCG/0.3ML Intramuscular Suspension Steven Alfaro Work Phone: [facility] Work Phone: Comment on above: Series: 09-04-2021 Pfizer-BioNTech COVI D-19 Vacc 30 MCG/0.3ML Intramuscular Suspension Steven Alfaro Work Phone: [facility] Work Phone: 08-02-2021 influenza, seasonal, injectable Steven Alfaro Work Phone: [facility] Work Phone: Comment on above: Series: 01-05-2021 Torey COVID-19 Vac cine 0.5 ML Intramuscular Suspension Steven Alfaro Work Phone: [facility] Work Phone: 07-18-2020 influenza, seasonal, injectable Steven Alfaro Work Phone: [facility] Work Phone: Comment on above: Series: 07-19-2019 influenza, seasonal, injectable [facility] Work Phone: Comment on above: Series: 07-14-2018 influenza virus vacc ine, unspecified formulation; Translations: [influenza virus vaccine, unspecified formulation] [facility] Work Phone: Comment on above: Series: 08-18-2017 pneumococcal polysaccharide vaccine, 23 valent Steven Alfaro [facility] Comment on above: Series: 07-14-2017 influenza, high dose seasonal, preservative-free Steven Alfaro Work Phone: [facility] 06-27-2015 influenza, high dose seasonal, preservative-free Steven Alfaro Work Phone: [facility] 03-07-2015 pneumococcal conjuga te vaccine, 13 valent Steven Alfaro [facility] Work Phone: Comment on above: Series: 03-03-2015 pneumococcal conjuga te vaccine, 13 valent Steven Alfaro [facility] Work Phone: 03-02-2015 pneumococcal conjuga te vaccine, 13 valent Steven Alfaro [facility] Comment on above: Series: 07-21-2014 influenza, seasonal, injectable Steven Alfaro Work Phone: [facility] Work Phone: 08-24-2013 influenza, seasonal, injectable Mayra Fernandes MD Work Phone: [facility] 11-20-2010 zoster vaccine, live Steven Alfaro [facility] Work Phone: Comment on above: Series: 09-15-2009 novel influenza-H1N1 -09, preservative-free, injectable Steven Alfaro Work Phone: [facility] 08-15-2009 pneumococcal polysaccharide vaccine, 23 valent Steven Alfaro [facility] Work Phone: Comment on above: Series: 07-04-2008 pneumococcal polysaccharide vaccine, 23 valmahnaz Fernandes MD Work Phone: [facility] 02-25-2008 tetanus toxoid, redu syl diphtheria toxoid, and acellular pertussis vaccine, adsorbed Steven Alfaro [facility] Work Phone: Comment on above: Series: 07-20-2004 pneumococcal polysaccharide vaccine, 23 valent Steven Alfaro Work Phone: [facility] Work Phone: Comment on above: Series: 07-20-2004 tetanus toxoid, redu syl diphtheria toxoid, and acellular pertussis vaccine, adsorbed Steven Alfaro -[facility] Work Phone: Comment on above: Series: 07-20-2004 pneumococcal polysaccharide vaccine, 23 valent Steven Alfaro -[facility] Work Phone: Payers Date Payer Category Payer Self-pay [id number] 2024 [facility] Care O (unspecified) [facility] Member Subscriber Plan / Payer (Effective 2024-Present) Name: Lola Drew Relation to Subscriber: Self Name: Lola Drew Payer ID: Not on file Type: Not on file Address: [place] [id number] 2024 Medicare O O MANAGED [facility] HMO [id number] 2024 Unknown [id number] 2022 Medicare (Managed Care) [facility] MEDIC[facility] [id number] 2022 Unknown 2022 Unknown [id number] 2021 Unknown [id number] 2015 Unknown [id number] 2015 Medicare [id number] 2014 Unknown [id number] 1950 Unknown [id number] 2.840.1.474790.3.579.2. 356 1950 Unknown [id number] 2.840.1.308347.3.579.2. 356 1950 Unknown [id number] 2.840.1.577845.3.579.2. 1244 1950 Unknown [id number] 2.16840.1.461445.3.579.2. 1244 1950 Unknown [id number] 2.16840.1.918224.3.579.2. 900 1950 Unknown [id number] 2.16.840.1.787758.3.579.2. 900 1950 Unknown [id number] 2.16840.1.286941.3.579.2. 900 1950 Unknown [id number] 2.16.840.1.791615.3.579.2. 2 1950 Unknown [id number] 2.16.840.1.470614.3.579.2. 2 1950 Unknown [id number] 2.16.840.1.529601.3.579.2. 1950 Unknown [id number] 2.16.840.1.460943.3.579.2. 1950 Unknown [id number] 2.16.840.1.920796.3.579.2. 1950 Unknown [id number] 2.16.840.1.909082.3.579.2 1950 Unknown [id number] 2.16.840.1.157559.3.579.2 1950 Unknown [id number] 2.16.840.1.771382.3.579.2 1950 Unknown [id number] 2.16.840.1.521439.3.579.2 1950 Unknown [id number] 2.16.840.1.392871.3.579.2. 1950 Unknown [id number] 2.16.840.1.031240.3.579.2 1950 Unknown [id number] 2.16.840.1.454582.3.579.2. 1950 Unknown [id number] 2.16.840.1.522029.3.579.2. 1950 Unknown [id number] 2.16.840.1.552195.3.579.2. 1950 Unknown [id number] 2.16.840.1.536640.3.579.2 1950 Unknown [id number] 2.16.840.1.436445.3.579.2. 903 1950 Unknown [id number] 2.16.840.1.881763.3.579.2. 1950 Unknown [id number] 2.16.840.1.931275.3.579.2. 3 1950 Unknown [id number] 2.16.840.1.172177.3.579.2. 1950 Unknown [id number] 2.16.840.1.146199.3.579.2. 1950 Unknown [id number] 2.16.840.1.304267.3.579.2. 1950 Unknown [id number] 2.16.840.1.209438.3.579.2. 1950 Unknown [id number] 2.16.840.1.239587.3.579.2. 1950 Unknown [id number] 2.16.840.1.967027.3.579.2. 1950 Unknown [id number] 2.16.840.1.718837.3.579.2. 1950 Unknown [id number] 2.16.840.1.820689.3.579.2. 1950 Unknown [id number] 2.16.840.1.060177.3.579.2. 1950 Unknown [id number] 2.16.840.1.578903.3.579.2. 90 Unknown [id number] 2.16.840.1.393353.3.579.2. 462 Social History Date Type Detail Facility Start: 10-13-2014 End: 10-19-2024 Consumes alcohol Consumes alcohol [facility] Work Phone: Start: 02-13-2022 Tobacco smoking status COIS Unknown if ever smoked [facility] Work Phone: Start: 1950 Sex Assigned At Female W julia [facility] Start: 10-13-2014 Tobacco smoking status NHIS Smokes tobacco daily [facility] Start: 03-03-1971 End: 03-03-2015 History of tobacco use Cigarette Smoker [facility] Start: 10-13-2014 End: 04-12-2024 Alcohol intake Current drinker of alcohol (finding) [facility] Start: 1950 Sex Assigned At Not on file [facility] Start: 04-21-2022 End: 11-17-2023 Exposure to SARS-CoV-2 (event) Not sure [facility] Start: 05-15-2023 Tobacco smoking status NHIS Never smoked tobacco [facility] Work Phone: Start: 05-15-2023 Tobacco use and exposure Smokeless tobacco non-user [facility] Work Phone: Start: 05-15-2023 End: 11-17-2023 Alcohol intake Lifetime non-drinker (finding) [facility] Work Phone: Start: 05-15-2023 End: 10-19-2024 Tobacco use panel [facility] Work Phone: Start: 10-01-2016 End: 01-11-2025 Tobacco smoking status NHIS Ex-smoker [facility] Start: 03-03-1971 End: 03-03-2015 History of tobacco use Current smoker [facility] Start: 09-06-2015 End: 09-15-2023 Tobacco Comment 1 ppd for 44 years, quit March 2015 [facility] Start: 05-19-2023 Gender identity Identifies as female gender (finding) [facility] Start: 05-19-2023 Sexual orientation Heterosexual (fin ding) [facility] Adult Depression Screening Assessment 21 [facility] Start: 07-13-2024 End: 04-19-2025 Alcoholic beverage intake Ex-drinker (finding) [facility] Has the electric, gas, oil, or water company threatened to shut off services in your home in past 12Mo No [facility] (I/We) worried whether (my/our) food would run out before (I/we) got money to buy more. Never true [facility] Start: 08-30-2024 Alcohol Comment 1 drink per year [facility] Start: 02-16-2025 Tobacco Comment vape [facility] Start: 02-16-2025 Alcohol Comment social maybe o ne a month [facility] NEGATED: Highlighted row - - [facility] Work Phone: Functional Status Date Assessment Result Facility NEGATED: Highlighted row Functional performance Functional status health issues are not documented Disease [facility] Work Phone: Mental Status Date Assessment Result Facility NEGATED: Highlighted row Cognitive function [Interpretation] Cognitive status health issues are not documented Disease [facility] Work Phone: Clinical Notes 05-15-2023 to 04-19-2025 Елена Bourne CNP - 04/19/2025 10:44 AM Sara Foster MD - 04/01/2025 9:36 AM EDTAssessment & Plan Note - Diana Beatty DO - 03/10/2025 1:03 PM EDT Note Date & Type Note Facility 04-19-2025 Note Subjective Patient ID: Lola Drew is a 74 y.o. female. Chief Complaint Patient presents with Cough X 1 day COPD and asthma HPI Lola is a pleasant 74 year old female that comes to office with concerns of SOB, productive cough. States her cough is productive with thick green mucus. She does have past medical history of allergies, COPD and asthma for which she is on Trelegy, albuterol and uses Flonase and Xyzal daily. She also complains of frontal BOYER, tightness in chest, right ear pain, rhinorrhea and PND. Denies fever or chills, but states she has been feeing more sweaty over the past week. States she has been using her trelegy but not albuterol or nebulizer recently at home. States she does follow with pulmonology, Dr. Valadez, but unsure when next follow up is. Tells me she is stressed as her is not doing well, and is currently at home with hospice. The following portions of the patient's history were reviewed and updated as appropriate: allergies, current medications, past family history, past medical history, past social history, past surgical history, and problem list. Past Medical History: Diagnosis Date Anxiety Asthma Bronchiectasis (HCC) Bronchitis Cataract Chronic bronchitis (HCC) Clotting disorder 07/28/2024 blood clots Colitis COPD (chronic obstructive pulmonary disease) (HCC) Deep vein thrombosis (HCC) Depression Disease of thyroid gland GERD (gastroesophageal reflux disease) Hypercholesterolemia Insomnia Obstructive sleep apnea Osteopenia Pneumonia Primary central sleep apnea Pulmonary arterial hypertension (HCC) Pulmonary embolism (HCC) Rheumatoid arthritis (HCC) TMJ dysfunction Vitamin D deficiency Past Surgical History: Procedure Laterality Date APPENDECTOMY COLONOSCOPY CT COLONOSCOPY 05/18/2019 CT COLONOSCOPY EYE SURGERY FINGER SURGERY Bilateral 11/03/2009 thumb FOOT SURGERY FRACTURE SURGERY HYSTERECTOMY (CERVIX REMAINS) HYSTERECTOMY (CERVIX REMOVED) NASAL SEPTUM SURGERY 1989 possibly SKIN BIOPSY TONSILLECTOMY AND ADENOIDECTOMY UPPER GASTROINTESTINAL ENDOSCOPY Social History[1] Family History Problem Relation Age of Onset Other (unknown cancer) Mother Cancer Mother Early Mother Heart attack Father age 54 Asthma Father Cancer Father Early Father Arthritis Paternal Grandfather Unknown Sister Allergies[2] Outpatient Medications as of 04/19/2025 Medication Sig albuterol 90 mcg/actuation inhaler Inhale 2 (two) puffs every 6 (six) hours as needed for wheezing . aspirin 81 MG EC tablet Take 1 (one) tablet (81 mg total) by mouth daily . azithromycin (Z-ALEYDA) 5 day dose pack Follow package instructions. . buPROPion (WELLBUTRIN XL) 300 MG 24 hr tablet Take 1 (one) tablet (300 mg total) by mouth daily . busPIRone (BUSPAR) 5 MG tablet Take 1 (one) tablet (5 mg total) by mouth 3 (three) times a day as needed . clobetasoL (TEMOVATE) 0.05 % scalp solution DULoxetine (CYMBALTA) 60 MG capsule Take 2 (two) capsules (120 mg total) by mouth daily Total 90 mg daily . fexofenadine (ARIELLA) 180 MG tablet Take 1 (one) tablet (180 mg total) by mouth . fluticasone propionate (FLONASE) 50 mcg/actuation nasal spray Instill 1 (one) spray into each nostril daily . epotntyfiqi-jxihwykpd-jxjrmsil (Trelegy Ellipta) 200-62.5-25 mcg DsDv Inhale 1 (one) Inhalation. daily . furosemide (LASIX) 40 MG tablet Take 1 (one) tablet (40 mg total) by mouth 2 (two) times a day . ipratropium-albuteroL (DUO-NEB) 0.5-2.5 mg/3 ml nebulizer Take 3 mL by nebulization 3 (three) times a day . levocetirizine (XYZAL) 5 MG tablet Take 1 (one) tablet (5 mg total) by mouth every evening . levothyroxine (SYNTHROID, LEVOTHROID) 75 MCG tablet Take 1 (one) tablet (75 mcg total) by mouth daily . meclizine (ANTIVERT) 25 mg tablet Take 1 (one) tablet (25 mg total) by mouth 3 (three) times a day as needed for nausea . montelukast (SINGULAIR) 10 mg tablet Take 1 (one) tablet (10 mg total) by mouth daily . nitroGLYCERIN (NITROSTAT) 0.[address] 1 (one) tablet (0.4 mg total) under the tongue every 5 (five) minutes as needed for chest pain , if no relief after 3 doses call 911 . NONFORMULARY CPAP 9cm H20 ([facility]) in [facility] ondansetron (ZOFRAN-ODT) 4 MG disintegrating tablet Dissolve 1 (one) tablet (4 mg total) on top of tongue every 6 to 8 hours as needed for nausea . pantoprazole (PROTONIX) 20 MG tablet Take 1 (one) tablet (20 mg total) by mouth daily . potassium chloride (MICRO-K) 10 MEQ CR capsule Take 1 (one) capsule (10 mEq total) by mouth daily . semaglutide, weight loss, (Wegovy) 0.25 mg/0.5 mL Pen Inject 0.5 mL (0.25 mg total) under the skin once a week . simvastatin (ZOCOR) 40 MG tablet Take 1 (one) tablet (40 mg total) by mouth daily . SUMAtriptan (IMITREX) 50 MG tablet Take 1 (one) tablet (50 mg total) by mouth every 2 (two) hours as needed for migraine Max (more content not included)... [facility] 04-19-2025 History of Present illness Narrative Images from the original note were not included. Subjective Patient ID: Lola Drew is a 74 y.o. female. Chief Complaint Patient presents with Cough X 1 day COPD and asthma HPI Lola is a pleasant 74 year old female that comes to office with concerns of SOB, productive cough. States her cough is productive with thick green mucus. She does have past medical history of allergies, COPD and asthma for which she is on Trelegy, albuterol and uses Flonase and Xyzal daily. She also complains of frontal BOYER, tightness in chest, right ear pain, rhinorrhea and PND. Denies fever or chills, but states she has been feeing more sweaty over the past week. States she has been using her trelegy but not albuterol or nebulizer recently at home. States she does follow with pulmonology, Dr. Valadez, but unsure when next follow up is. Tells me she is stressed as her is not doing well, and is currently at home with hospice. The following portions of the patient's history were reviewed and updated as appropriate: allergies, current medications, past family history, past medical history, past social history, past surgical history, and problem list. Past Medical History: Diagnosis Date Anxiety Asthma Bronchiectasis (HCC) Bronchitis Cataract Chronic bronchitis (HCC) Clotting disorder 07/28/2024 blood clots Colitis COPD (chronic obstructive pulmonary disease) (HCC) Deep vein thrombosis (HCC) Depression Disease of thyroid gland GERD (gastroesophageal reflux disease) Hypercholesterolemia Insomnia Obstructive sleep apnea Osteopenia Pneumonia Primary central sleep apnea Pulmonary arterial hypertension (HCC) Pulmonary embolism (HCC) Rheumatoid arthritis (HCC) TMJ dysfunction Vitamin D deficiency Past Surgical History: Procedure Laterality Date APPENDECTOMY COLONOSCOPY CT COLONOSCOPY 05/18/2019 CT COLONOSCOPY EYE SURGERY FINGER SURGERY Bilateral 11/03/2009 thumb FOOT SURGERY FRACTURE SURGERY HYSTERECTOMY (CERVIX REMAINS) HYSTERECTOMY (CERVIX REMOVED) NASAL SEPTUM SURGERY 1989 possibly SKIN BIOPSY TONSILLECTOMY AND ADENOIDECTOMY UPPER GASTROINTESTINAL ENDOSCOPY Social History[1] Family History Problem Relation Age of Onset Other (unknown cancer) Mother Cancer Mother Early Mother Heart attack Father age 54 Asthma Father Cancer Father Early Father Arthritis Paternal Grandfather Unknown Sister Allergies[2] Outpatient Medications as of 04/19/2025 Medication Sig albuterol 90 mcg/actuation inhaler Inhale 2 (two) puffs every 6 (six) hours as needed for wheezing . aspirin 81 MG EC tablet Take 1 (one) tablet (81 mg total) by mouth daily . azithromycin (Z-ALEYDA) 5 day dose pack Follow package instructions. . buPROPion (WELLBUTRIN XL) 300 MG 24 hr tablet Take 1 (one) tablet (300 mg total) by mouth daily . busPIRone (BUSPAR) 5 MG tablet Take 1 (one) tablet (5 mg total) by mouth 3 (three) times a day as needed . clobetasoL (TEMOVATE) 0.05 % scalp solution DULoxetine (CYMBALTA) 60 MG capsule Take 2 (two) capsules (120 mg total) by mouth daily Total 90 mg daily . fexofenadine (ARIELLA) 180 MG tablet Take 1 (one) tablet (180 mg total) by mouth . fluticasone propionate (FLONASE) 50 mcg/actuation nasal spray Instill 1 (one) spray into each nostril daily . ydabxgjrafk-bvhpzmixs-uqudugsg (Trelegy Ellipta) 200-62.5-25 mcg DsDv Inhale 1 (one) Inhalation. daily . furosemide (LASIX) 40 MG tablet Take 1 (one) tablet (40 mg total) by mouth 2 (two) times a day . ipratropium-albuteroL (DUO-NEB) 0.5-2.5 mg/3 ml nebulizer Take 3 mL by nebulization 3 (three) times a day . levocetirizine (XYZAL) 5 MG tablet Take 1 (one) tablet (5 mg total) by mouth every evening . levothyroxine (SYNTHROID, LEVOTHROID) 75 MCG tablet Take 1 (one) tablet (75 mcg total) by mouth daily . meclizine (ANTIVERT) 25 mg tablet Take 1 (one) tablet (25 mg total) by mouth 3 (three) times a day as needed for nausea . montelukast (SINGULAIR) 10 mg tablet Take 1 (one) tablet (10 mg total) by mouth daily . nitroGLYCERIN (NITROSTAT) 0.[address] 1 (one) tablet (0.4 mg total) under the tongue every 5 (five) minutes as needed for chest pain , if no relief after 3 doses call 911 . NONFORMULARY CPAP 9cm H20 ([facility] [place] in [facility] ondansetron (ZOFRAN-ODT) 4 MG disintegrating tablet Dissolve 1 (one) tablet (4 mg total) on top of tongue every 6 to 8 hours as needed for nausea . pantoprazole (PROTONIX) 20 MG tablet Take 1 (one) tablet (20 mg total) by mouth daily . potassium chloride (MICRO-K) 10 MEQ CR capsule Take 1 (one) capsule (10 mEq total) by mouth daily . semaglutide, weight loss, (Wegovy) 0.25 mg/0.5 mL Pen Inject 0.5 mL (0.25 mg total) under the skin once a week . simvastatin (ZOCOR) 40 MG tablet Take 1 (one) tablet (40 mg total) by mouth daily . SUMAtriptan (IMITREX) 50 MG tablet Take 1 (one) tablet (50 mg total) by mouth every 2 (two) hours as needed for migraine Max of 200 mg in 24hrs, do not treat more than 3 times a week . Review of Systems Objective BP 122/60 (BP Location: Right arm, Patient Position: Sitting, BP Cuff Size: X-large Adult) Pulse 72 Temp 98.2 F (36.8 C) Resp 18 Ht 5' 4 Wt 105.8 kg (233 lb 4.8 oz) SpO2 95% BMI 40.05 kg/m Physical Exam Constitutional: Appearance: She is ill-appearing. HENT: Right Ear: Tympanic membrane, ear canal and external ear normal. Left Ear: Tympanic membrane, ear canal and external ear normal. Nose: Mucosal edema and rhinorrhea present. Mouth/Throat: Mouth: Mucous membranes are moist. Pharynx: Uvula midline. Postnasal drip present. No pharyngeal swelling, oropharyngeal exudate, posterior oropharyngeal erythema or uvula swelling. Cardiovascular: Rate and Rhythm: Normal rate. Pulses: Normal pulses. Pulmonary: Breath sounds: Wheezing and rhonchi present. Comments: Coarse breath sounds throughout, rhonchi to bilateral bases, expiratory wheezing throughout Lymphadenopathy: Cervical: No cervical adenopathy. Skin: General: Skin is warm and dry. Neurological: Mental Status: She is alert and oriented to person, place, and time. Psychiatric: Mood and Affect: Mood normal. Behavior: Behavior normal. Thought Content: Thought content normal. Assessment/Plan: Diagnoses and all orders for this visit: COPD with acute exacerbation (HCC) - guaiFENesin (MUCINEX) 600 mg 12 hr tablet; Take 1 (one) tablet (600 mg total) by mouth 2 (two) times a day for 10 days . - methylPREDNISolone (MEDROL DOSEPACK) 4 mg tablet; Follow package directions . - doxycycline hyclate (VIBRA-TABS) 100 MG tablet; Take 1 (one) tablet (100 mg total) by mouth 2 (two) times a day for 7 days . Discussed with patient we will treat for sinusitis as well as COPD exacerbation. Will send in steroid taper dose as well as doxycycline antibiotic twice daily for 7 days. Sent in Mucinex as well. Encouraged her to also use her albuterol nebulizers at home. Encouraged nonpharmacological management as well including but not limited to increasing water intake, elevating head of bed at night, resting, vaporizer in room, and healthy diet. Warning signs symptoms reviewed with patient when to follow-up. Discussed my concerns as she has been in office with COPD exacerbation February, March and now April as well. 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 Patient verbalized understanding and in agreement with plan of care. Please note: Portions of this chart may have been created with Fleck voice recognition software. Occasional wrong-word or sound-like substitutions may have occurred due to inherent limitations of the voice recognition software. Please read the chart carefully and recognize, using context, where the substitutions have occurred. Electronically signed by CHARLENE Chopra 12:18 PM [1] Social History Tobacco Use Smoking status: Former Current packs/day: 0.00 Average packs/day: 1 pack/day for 44.0 years (44.0 ttl pk-yrs) Types: Cigarettes Start date: 03/03/1971 Quit date: 03/03/2015 Years since quittin.1 Tobacco comments: vape Vaping Use Vaping status: Every Day Substances: Nicotine, Flavoring Devices: Disposable Substance Use Topics Alcohol use: Not Currently Comment: social maybe one a month Drug use: Never [2] Allergies Allergen Reactions Amoxicillin Bee Venom Protein (Honey Bee) Swelling Sulfa (Sulfonamide Antibiotics) Penicillins Rash documented in this encounter [facility] 04-01-2025 Note Subjective Patient I D: Lola Drew is a 74 y.o. female here for Chief Complaint Patient presents with Anxiety N After discussing the use of ambient listening and audio recording in generating medical documentation, the patient verbally consented to use of this technology for today's visit. History of Present Illness Cough: 11/22 She reports experiencing her usual sinus symptoms and cough, which are exacerbated by dry weather or allergies. She has been exposed to various illnesses within her household, including RSV, bronchitis, ear infections, influenza, and strep throat, but she has been trying to stay away from it. Despite these symptoms, she is able to perform her daily activities. She finds relief with Flonase, administered as one spray in each nostril twice daily, but currently has no refills. She also takes Ariella and Singulair daily for her breathing. Obesity: She expresses interest in weight loss patches and admits to a strong preference for food, particularly diet Pepsi. Hypothyroidism: She has been on a consistent regimen of levothyroxine 75 mcg for approximately 1 to 2 years. She has not required meclizine for vertigo or headaches and has not experienced any headaches since her last visit. She has been on Protonix for an extended period due to occasional abdominal pain, described as a swelling sensation that becomes lodged in her ribs. However, she continues to experience this discomfort even while on Protonix. PE: She is on Eliquis for pulmonary embolism and requires a refill. Depression: She is on Wellbutrin and Cymbalta 90 mg for depression and anxiety. Asthma: She is on Trelegy inhaler for asthma and has refills for that. Allergies: She is on Singulair for her breathing and has been on it for many years. MEDICATIONS Current: Flonase, Ariella, Singulair, Eliquis, Wellbutrin, Cymbalta, Trelegy, levothyroxine, Protonix, Imitrex, meclizine Lola Drew is a 74 year old female who presents with anxiety and stress related to her 's declining health. She is experiencing significant anxiety and stress due to her 's recent health decline. Her had three seizures, was found to have had strokes, and his kidneys are failing. He is now under hospice care, and she is struggling to cope with the rapid progression of his condition. Despite respecting his decision to refuse dialysis, she finds it difficult to manage emotionally. Her has a history of multiple surgeries, including prostate removal and partial kidney removal, and suffered a serious heart attack a year ago. He has refused dialysis despite his kidney failure, expressing that he is tired and ready to stop treatment. She respects his decision but finds it difficult to manage emotionally. She feels exhausted, though she is able to sleep. She describes her stomach as 'a mess' and experiences burning, which she attributes to stress. She has been using Mylanta but stopped other medications due to concerns about long-term use. She also reports swelling in her legs and mentions that her phone is constantly ringing with concerned family and friends. Despite the support, she feels overwhelmed and is trying to maintain her ability to function and care for her . She is currently taking Cymbalta (duloxetine) for her mental health. She is also using inhalers for her respiratory condition and is awaiting a refill for Trelegy. Past Medical History: Diagnosis Date Anxiety Asthma Bronchiectasis (HCC) Bronchitis Cataract Chronic bronchitis (HCC) Clotting disorder 07/28/2024 blood clots Colitis COPD (chronic obstructive pulmonary disease) (HCC) Deep vein thrombosis (HCC) Depression Disease of thyroid gland GERD (gastroesophageal reflux disease) Hypercholesterolemia Insomnia Obstructive sleep apnea Osteopenia Pneumonia Primary central sleep apnea Pulmonary arterial hypertension (HCC) Pulmonary embolism (HCC) Rheumatoid arthritis (HCC) TMJ dysfunction Vitamin D deficiency Past Surgical History: Procedure Laterality Date APPENDECTOMY COLONOSCOPY CT COLONOSCOPY 05/18/2019 CT COLONOSCOPY EYE SURGERY FINGER SURGERY Bilateral 11/03/2009 thumb FOOT SURGERY FRACTURE SURGERY HYSTERECTOMY (CERVIX REMAINS) HYSTERECTOMY (CERVIX REMOVED) NASAL SEPTUM SURGERY 1989 possibly SKIN BIOPSY TONSILLECTOMY AND ADENOIDECTOMY UPPER GASTROINTESTINAL ENDOSCOPY Family History Problem Relation Age of Onset Other (unknown cancer) Mother Cancer Mother Early Mother Heart attack Father age 54 Asthma Father Cancer Father Early Father Arthritis Paternal Grandfather Unknown Sister Social History Tobacco Use Smoking status: Former Current packs/day: 0.00 Average packs/day: 1 pack/day for 44.0 years (44.0 ttl pk-yrs) Types: Cigarettes Start date: 03/03/1971 Quit date: 03/03/2015 Years since qu (more content not included)... [facility] 04-01-2025 History of Present illness Narrative Images from the original note were not included. Subjective Patient ID: Lola Drew is a 74 y.o. female here for Chief Complaint Patient presents with Anxiety N After discussing the use of ambient listening and audio recording in generating medical documentation, the patient verbally consented to use of this technology for today's visit. History of Present Illness Cough: 11/22 She reports experiencing her usual sinus symptoms and cough, which are exacerbated by dry weather or allergies. She has been exposed to various illnesses within her household, including RSV, bronchitis, ear infections, influenza, and strep throat, but she has been trying to stay away from it. Despite these symptoms, she is able to perform her daily activities. She finds relief with Flonase, administered as one spray in each nostril twice daily, but currently has no refills. She also takes Ariella and Singulair daily for her breathing. Obesity: She expresses interest in weight loss patches and admits to a strong preference for food, particularly diet Pepsi. Hypothyroidism: She has been on a consistent regimen of levothyroxine 75 mcg for approximately 1 to 2 years. She has not required meclizine for vertigo or headaches and has not experienced any headaches since her last visit. She has been on Protonix for an extended period due to occasional abdominal pain, described as a swelling sensation that becomes lodged in her ribs. However, she continues to experience this discomfort even while on Protonix. PE: She is on Eliquis for pulmonary embolism and requires a refill. Depression: She is on Wellbutrin and Cymbalta 90 mg for depression and anxiety. Asthma: She is on Trelegy inhaler for asthma and has refills for that. Allergies: She is on Singulair for her breathing and has been on it for many years. MEDICATIONS Current: Flonase, Ariella, Singulair, Eliquis, Wellbutrin, Cymbalta, Trelegy, levothyroxine, Protonix, Imitrex, meclizine Lola Drew is a 74 year old female who presents with anxiety and stress related to her 's declining health. She is experiencing significant anxiety and stress due to her 's recent health decline. Her had three seizures, was found to have had strokes, and his kidneys are failing. He is now under hospice care, and she is struggling to cope with the rapid progression of his condition. Despite respecting his decision to refuse dialysis, she finds it difficult to manage emotionally. Her has a history of multiple surgeries, including prostate removal and partial kidney removal, and suffered a serious heart attack a year ago. He has refused dialysis despite his kidney failure, expressing that he is tired and ready to stop treatment. She respects his decision but finds it difficult to manage emotionally. She feels exhausted, though she is able to sleep. She describes her stomach as 'a mess' and experiences burning, which she attributes to stress. She has been using Mylanta but stopped other medications due to concerns about long-term use. She also reports swelling in her legs and mentions that her phone is constantly ringing with concerned family and friends. Despite the support, she feels overwhelmed and is trying to maintain her ability to function and care for her . She is currently taking Cymbalta (duloxetine) for her mental health. She is also using inhalers for her respiratory condition and is awaiting a refill for Trelegy. Past Medical History: Diagnosis Date Anxiety Asthma Bronchiectasis (HCC) Bronchitis Cataract Chronic bronchitis (HCC) Clotting disorder 07/28/2024 blood clots Colitis COPD (chronic obstructive pulmonary disease) (HCC) Deep vein thrombosis (HCC) Depression Disease of thyroid gland GERD (gastroesophageal reflux disease) Hypercholesterolemia Insomnia Obstructive sleep apnea Osteopenia Pneumonia Primary central sleep apnea Pulmonary arterial hypertension (HCC) Pulmonary embolism (HCC) Rheumatoid arthritis (HCC) TMJ dysfunction Vitamin D deficiency Past Surgical History: Procedure Laterality Date APPENDECTOMY COLONOSCOPY CT COLONOSCOPY 05/18/2019 CT COLONOSCOPY EYE SURGERY FINGER SURGERY Bilateral 11/03/2009 thumb FOOT SURGERY FRACTURE SURGERY HYSTERECTOMY (CERVIX REMAINS) HYSTERECTOMY (CERVIX REMOVED) NASAL SEPTUM SURGERY 1989 possibly SKIN BIOPSY TONSILLECTOMY AND ADENOIDECTOMY UPPER GASTROINTESTINAL ENDOSCOPY Family History Problem Relation Age of Onset Other (unknown cancer) Mother Cancer Mother Early Mother Heart attack Father age 54 Asthma Father Cancer Father Early Father Arthritis Paternal Grandfather Unknown Sister Social History Tobacco Use Smoking status: Former Current packs/day: 0.00 Average packs/day: 1 pack/day for 44.0 years (44.0 ttl pk-yrs) Types: Cigarettes Start date: 03/03/1971 Quit date: 03/03/2015 Years since quittin.0 Tobacco comments: vape Vaping Use Vaping status: Every Day Substances: Nicotine, Flavoring Devices: Disposable Substance Use Topics Alcohol use: Not Currently Comment: social maybe one a month Drug use: Never Review of Systems Vitals: 04/01/25 0929 BP: (!) 143/84 BP Location: Right arm Patient Position: Sitting BP Cuff Size: X-large Adult Pulse: 67 Resp: 16 Temp: 98.3 F (36.8 C) TempSrc: Oral SpO2: 93% Weight: 108 kg (238 lb) Height: 5' 4 Estimated body mass index is 40.85 kg/m as calculated from the following: Height as of this encounter: 5' 4. Weight as of this encounter: 108 kg (238 lb). Physical Exam Constitutional: General: She is not in acute distress. Appearance: She is not ill-appearing. HENT: Head: Normocephalic and atraumatic. Nose: Nose normal. Mouth/Throat: Mouth: Mucous membranes are moist. Pharynx: Oropharynx is clear. No oropharyngeal exudate or posterior oropharyngeal erythema. Eyes: Extraocular Movements: Extraocular movements intact. Conjunctiva/sclera: Conjunctivae normal. Pupils: Pupils are equal, round, and reactive to light. Cardiovascular: Rate and Rhythm: Normal rate and regular rhythm. Pulses: Normal pulses. Heart sounds: Normal heart sounds. No murmur heard. No gallop. Pulmonary: Effort: Pulmonary effort is normal. Breath sounds: No wheezing, rhonchi or rales. Chest: Chest wall: No tenderness. Abdominal: General: Abdomen is flat. Bowel sounds are normal. There is no distension. Palpations: Abdomen is soft. There is no mass. Tenderness: There is no abdominal tenderness. There is no right CVA tenderness, left CVA tenderness, guarding or rebound. Musculoskeletal: General: No tenderness. Normal range of motion. Cervical back: Normal range of motion and neck supple. No rigidity. No muscular tenderness. Right lower leg: No edema. Left lower leg: No edema. Lymphadenopathy: Cervical: No cervical adenopathy. Skin: General: Skin is warm. Findings: No erythema or rash. Neurological: General: No focal deficit present. Mental Status: She is alert and oriented to person, place, and time. Sensory: No sensory deficit. Motor: No weakness. Gait: Gait normal. Psychiatric: Mood and Affect: Mood normal. Behavior: Behavior normal. Thought Content: Thought content normal. Judgment: Judgment normal. OARRS/NARxCHECK Report Received and Assessed: Date controlled substance agreement signed: No data found Date of last drug screen: PHQ9: Over the last 2 weeks, how often have you been bothered by any of the following problems? Little interest or pleasure in doing things: Nearly every day Feeling down, depressed, or hopeless: Nearly every day PHQ-2 Total Score: 6 Trouble falling or staying asleep, or sleeping too much: Several days Feeling tired or having little energy: Several days Poor appetite or overeating: Nearly every day Feeling bad about yourself - or that you are a failure or have let yourself or your family down: More than half the days Trouble concentrating on things, such as reading the newspaper or watching television: Nearly every day Moving or speaking so slowly that other people could have noticed. Or the opposite - being so fidgety or restless that you have been moving around a lot more than usual: Several days Thoughts that you would be better off , or of hurting yourself in some way: Not at all PHQ-9 Total Score: 17 If you checked off any problems, how difficult have these problems made it for you to do your work, take care of things at home, or get along with other people?: Very difficult SOPHY-7 Over the last 2 weeks, how often have you been bothered by the following problems? Feeling nervous, anxious or on edge: Nearly every day Not being able to stop or control worrying: Nearly every day Worrying too much about different things: Nearly every day Trouble relaxing: Nearly every day Being so restless that it is hard to sit still: Nearly every day Becoming easily annoyed or irritable: Nearly every day Feeling afraid as if something awful might happen: Nearly every day SOPHY-7 Score: (!) 21 Tobacco Counseling: Counseling given: Not Answered Tobacco comments: vape Reviewed by Provider: Tobacco Allergies Meds Problems Med Hx Surg Hx Fam Hx Patient's Medications New Prescriptions BUSPIRONE (BUSPAR) 5 MG TABLET Take 1 (one) tablet (5 mg total) by mouth 3 (three) times a day as needed . Previous Medications ALBUTEROL 90 MCG/ACTUATION INHALER Inhale 2 (two) puffs every 6 (six) hours as needed for wheezing . ASPIRIN 81 MG EC TABLET Take 1 (one) tablet (81 mg total) by mouth daily . AZITHROMYCIN (Z-ALEYDA) 5 DAY DOSE PACK Follow package instructions. . BUPROPION (WELLBUTRIN XL) 300 MG 24 HR TABLET Take 1 (one) tablet (300 mg total) by mouth daily . CLOBETASOL (TEMOVATE) 0.05 % SCALP SOLUTION FEXOFENADINE (ARIELLA) 180 MG TABLET Take 1 (one) tablet (180 mg total) by mouth . FLUTICASONE PROPIONATE (FLONASE) 50 MCG/ACTUATION NASAL SPRAY Instill 1 (one) spray into each nostril daily . FUROSEMIDE (LASIX) 40 MG TABLET Take 1 (one) tablet (40 mg total) by mouth 2 (two) times a day . IPRATROPIUM-ALBUTEROL (DUO-NEB) 0.5-2.5 MG/3 ML NEBULIZER Take 3 mL by nebulization 3 (three) times a day . LEVOCETIRIZINE (XYZAL) 5 MG TABLET Take 1 (one) tablet (5 mg total) by mouth every evening . LEVOTHYROXINE (SYNTHROID, LEVOTHROID) 75 MCG TABLET Take 1 (one) tablet (75 mcg total) by mouth daily . MECLIZINE (ANTIVERT) 25 MG TABLET Take 1 (one) tablet (25 mg total) by mouth 3 (three) times a day as needed for nausea . MONTELUKAST (SINGULAIR) 10 MG TABLET Take 1 (one) tablet (10 mg total) by mouth daily . NITROGLYCERIN (NITROSTAT) 0.[address] 1 (one) tablet (0.4 mg total) under the tongue every 5 (five) minutes as needed for chest pain , if no relief after 3 doses call 911 . NONFORMULARY CPAP 9cm H20 ([facility] [place] in [facility] ONDANSETRON (ZOFRAN-ODT) 4 MG DISINTEGRATING TABLET Dissolve 1 (one) tablet (4 mg total) on top of tongue every 6 to 8 hours as needed for nausea . POTASSIUM CHLORIDE (MICRO-K) 10 MEQ CR CAPSULE Take 1 (one) capsule (10 mEq total) by mouth daily . SEMAGLUTIDE, WEIGHT LOSS, (WEGOVY) 0.25 MG/0.5 ML PEN Inject 0.5 mL (0.25 mg total) under the skin once a week . SIMVASTATIN (ZOCOR) 40 MG TABLET Take 1 (one) tablet (40 mg total) by mouth daily . SUMATRIPTAN (IMITREX) 50 MG TABLET Take 1 (one) tablet (50 mg total) by mouth every 2 (two) hours as needed for migraine Max of 200 mg in 24hrs, do not treat more than 3 times a week . Modified Medications Modified Medication Previous Medication DULOXETINE (CYMBALTA) 60 MG CAPSULE DULoxetine (CYMBALTA) 60 MG capsule Take 2 (two) capsules (120 mg total) by mouth daily Total 90 mg daily . Take 1 (one) capsule (60 mg total) by mouth daily Total 90 mg daily . [id number]-[id number] (TRELEGY ELLIPTA) 200-62.5-25 MCG DSDV dvykimmlwmn-qzalwfxrp-uretnzik (Trelegy Ellipta) 200-62.5-25 mcg DsDv Inhale 1 (one) Inhalation. daily . Inhale 1 (one) Inhalation. daily . PANTOPRAZOLE (PROTONIX) 20 MG TABLET pantoprazole (PROTONIX) 20 MG tablet Take 1 (one) tablet (20 mg total) by mouth daily . Take by mouth . Discontinued Medications DULOXETINE (CYMBALTA) 30 MG CAPSULE Take 1 (one) capsule (30 mg total) by mouth daily Total of 90 mg with 60 mg prescription . Health Maintenance Due Topic Date Due Hepatitis C Screening Never done Respiratory Syncytial Virus Immunization: Risk, 60-74 Risk, or 75+ (1 - Risk 60-74 years 1-dose series) Never done Medicare Wellness Visit 05/15/2024 Zoster Vaccines (3 of 3) 09/29/2024 COVID-19 Vaccine ( season) 2025 Assessment & Plan Problem List Items Addressed This Visit Digestive Esophageal reflux Relevant Medications pantoprazole (PROTONIX) 20 MG tablet Respiratory Asthma Relevant Medications bnxyfkbauyz-uvgtijbtd-mwpkhzct (Trelegy Ellipta) 200-62.5-25 mcg DsDv Other Visit Diagnoses Anxiety - Primary Relevant Medications busPIRone (BUSPAR) 5 MG tablet Other Relevant Orders Ambulatory Ref to [place] CM Education Administrator Moderate major depression (HCC) Relevant Medications busPIRone (BUSPAR) 5 MG tablet DULoxetine (CYMBALTA) 60 MG capsule Other Relevant Orders Ambulatory Ref to [place] CM Education Administrator Mild major depression Relevant Medications busPIRone (BUSPAR) 5 MG tablet DULoxetine (CYMBALTA) 60 MG capsule Current moderate episode of major depressive disorder without prior episode (HCC) Relevant Medications busPIRone (BUSPAR) 5 MG tablet DULoxetine (CYMBALTA) 60 MG capsule Chronic diastolic congestive heart failure (HCC) Assessment & Plan Assessment & Plan Depression and Anxiety Depression and anxiety worsened by stress from 's declining health and hospice care, leading to emotional distress and impaired functioning. - Increase duloxetine to 60 mg twice daily. - Prescribe Buspar as needed for anxiety, up to three times a day. - Offer counseling services with [facility], including virtual visits. HF: Stable no signs of fluid overload COPD with Asthma Wheezing resolved with coughing. Regular inhaler use. - Send refill for Trelegy inhaler to pharmacy. - Ensure inhaler use as prescribed. Gastroesophageal Reflux Disease (GERD) GERD symptoms worsened by stress, causing stomach burning. Previous medication discontinued due to long-term use concerns. - Prescribe pantoprazole 20 mg daily, with option to increase to 40 mg if symptoms persist. Leg swelling Leg swelling noted. Goals of Care Her is under hospice care with a prognosis of two weeks to three months. He refused dialysis, prioritizing quality of life. She respects his decision despite hoping for reconsideration. - Support her in respecting her 's wishes and provide emotional support as needed. No follow-ups on file. My ongoing relationship with Lola Drew requires continued responsibility and cognitive effort of being the focal point for all services related to chronic condition(s). After discussing the use of ambient listening and audio recording in generating medical documentation, the patient verbally consented to use of this technology for today's visit. SARA ALVAREZ MD [facility] [id number] Dept: [phone] 04/12/2024 1:43 PM 04/01/2025 10:55 AM Depression Screening Little interest or pleasure in doing things 2 3 Feeling down, depressed, or hopeless 2 3 PHQ-2 Total Score 4 6 Trouble falling or staying asleep, or sleeping too much 3 1 Feeling tired or having little energy 3 1 Poor appetite or overeating 3 3 Feeling bad about yourself - or that you are a failure or have let yourself or your family down 3 2 Trouble concentrating on things, such as reading the newspaper or watching television 3 3 Moving or speaking so slowly that other people could have noticed. Or the opposite - being so fidgety or restless that you have been moving around a lot more than usual 2 1 Thoughts that you would be better off , or of hurting yourself in some way 0 0 PHQ-9 Total Score 21 17 If you checked off any problems, how difficult have these problems made it for you to do your work, take care of things at home, or get along with other people? Somewhat difficult Very difficult Data saved with a previous flowsheet row definition 04/01/2025 10:55 AM PHQ-9 Review Little interest or pleasure in doing things 3 Feeling down, depressed, or hopeless 3 PHQ-2 Total Score 6 Trouble falling or staying asleep, or sleeping too much 1 Feeling tired or having little energy 1 Poor appetite or overeating 3 Feeling bad about yourself - or that you are a failure or have let yourself or your family down 2 Trouble concentrating on things, such as reading the newspaper or watching television 3 Moving or speaking so slowly that other people could have noticed. Or the opposite - being so fidgety or restless that you have been moving around a lot more than usual 1 Thoughts that you would be better off , or of hurting yourself in some way 0 PHQ-9 Total Score 17 If you checked off any problems, how difficult have these problems made it for you to do your work, take care of things at home, or get along with other people? Very difficult Patient is currently being treated for depression, see assessment and plan for management details. documented in this encounter [facility] 03-10-2025 Evaluation + Plan note Associated Problem(s): Upper respiratory tract infection Current URI with COPD exacerbation with wheezing, increased shortness of breath, productive cough. Lungs very wheezy on exam. negative influenza and COVID swabs in office today. - Prescribed azithromycin x 5 days and prednisone 40 mg x 5 days - ER precautions given - Follow-up if symptoms not improved after completing medications [facility] 03-10-2025 Miscellaneous Notes Associated Problem(s): Upper respiratory tract infection Current URI with COPD exacerbation with wheezing, increased shortness of breath, productive cough. Lungs very wheezy on exam. negative influenza and COVID swabs in office today. - Prescribed azithromycin x 5 days and prednisone 40 mg x 5 days - ER precautions given - Follow-up if symptoms not improved after completing medications Associated Problem(s): COPD with acute exacerbation (HCC) Current URI with COPD exacerbation with wheezing, increased shortness of breath, productive cough. - Prescribed azithromycin x 5 days and prednisone 40 mg x 5 days - ER precautions given - Follow-up if symptoms not improved after completing medications documented in this encounter [facility] 03-10-2025 Evaluation + Plan note Associated Problem(s): COPD with acute exacerbation (HCC) Current URI with COPD exacerbation with wheezing, increased shortness of breath, productive cough. - Prescribed azithromycin x 5 days and prednisone 40 mg x 5 days - ER precautions given - Follow-up if symptoms not improved after completing medications [facility] 03-10-2025 History of Present illness Narrative Assessment/Plan: COPD with acute exacerbation (HCC) Current URI with COPD exacerbation with wheezing, increased shortness of breath, productive cough. - Prescribed azithromycin x 5 days and prednisone 40 mg x 5 days - ER precautions given - Follow-up if symptoms not improved after completing medications Upper respiratory tract infection Current URI with COPD exacerbation with wheezing, increased shortness of breath, productive cough. Lungs very wheezy on exam. negative influenza and COVID swabs in office today. - Prescribed azithromycin x 5 days and prednisone 40 mg x 5 days - ER precautions given - Follow-up if symptoms not improved after completing medications Subjective: Lola Drew is a 74 y.o. female Chief Complaint Patient presents with Cough Patient presents today with headache, congestion, shortness of breath and cough x 2 days. Patient presents for acute visit. Patient reports 2 days of symptoms including sinus congestion, headache, shortness of breath worse than baseline, productive cough. Denies sick contacts. She does have asthma and COPD and is a current everyday user of vape. She was sick with similar symptoms 1 month ago, and symptoms improved/resolved with doxycycline and Medrol Dosepak. The following portions of the patient's history were reviewed and updated as appropriate: allergies, current medications, past family history, past medical history, past social history, past surgical history and problem list. Review of Systems Objective: PACU Vitals 03/10/25 1148 BP: 114/61 Pulse: 68 Temp: 98.9 F (37.2 C) SpO2: 93% Physical Exam Constitutional: General: She is not in acute distress. Appearance: Normal appearance. She is not ill-appearing, toxic-appearing or diaphoretic. HENT: Head: Normocephalic and atraumatic. Cardiovascular: Rate and Rhythm: Normal rate and regular rhythm. Heart sounds: No murmur heard. No gallop. Pulmonary: Effort: Pulmonary effort is normal. No respiratory distress. Breath sounds: No stridor. Wheezing present. No rhonchi or rales. Skin: General: Skin is warm and dry. Coloration: Skin is not jaundiced or pale. Neurological: Mental Status: She is alert. Psychiatric: Mood and Affect: Mood normal. For any new medications prescribed today, patient was educated about indications for the medication, how to take the medication and potential side effects of the medications. Diana Beatty DO documented in this encounter [facility] 03-10-2025 Note Assessment/Plan: COPD with acute exacerbation (HCC) Current URI with COPD exacerbation with wheezing, increased shortness of breath, productive cough. - Prescribed azithromycin x 5 days and prednisone 40 mg x 5 days - ER precautions given - Follow-up if symptoms not improved after completing medications Upper respiratory tract infection Current URI with COPD exacerbation with wheezing, increased shortness of breath, productive cough. Lungs very wheezy on exam. negative influenza and COVID swabs in office today. - Prescribed azithromycin x 5 days and prednisone 40 mg x 5 days - ER precautions given - Follow-up if symptoms not improved after completing medications Subjective: Lola Drew is a 74 y.o. female Chief Complaint Patient presents with Cough Patient presents today with headache, congestion, shortness of breath and cough x 2 days. Patient presents for acute visit. Patient reports 2 days of symptoms including sinus congestion, headache, shortness of breath worse than baseline, productive cough. Denies sick contacts. She does have asthma and COPD and is a current everyday user of vape. She was sick with similar symptoms 1 month ago, and symptoms improved/resolved with doxycycline and Medrol Dosepak. The following portions of the patient's history were reviewed and updated as appropriate: allergies, current medications, past family history, past medical history, past social history, past surgical history and problem list. Review of Systems Objective: PACU Vitals 03/10/25 1148 BP: 114/61 Pulse: 68 Temp: 98.9 degrees F (37.2 degrees C) SpO2: 93% Physical Exam Constitutional: General: She is not in acute distress. Appearance: Normal appearance. She is not ill-appearing, toxic-appearing or diaphoretic. HENT: Head: Normocephalic and atraumatic. Cardiovascular: Rate and Rhythm: Normal rate and regular rhythm. Heart sounds: No murmur heard. No gallop. Pulmonary: Effort: Pulmonary effort is normal. No respiratory distress. Breath sounds: No stridor. Wheezing present. No rhonchi or rales. Skin: General: Skin is warm and dry. Coloration: Skin is not jaundiced or pale. Neurological: Mental Status: She is alert. Psychiatric: Mood and Affect: Mood normal. For any new medications prescribed today, patient was educated about indications for the medication, how to take the medication and potential side effects of the medications. Diana Beatty DO AUTHENTICATED BY DIANA BEATTY, ON 03/10/2025 13:06:29 [facility] 02-16-2025 History of Present illness Narrative Hematology/Oncology Clinic Follow Up Note Patient ID: Lola Drew is a 74 y.o. female Reason for Consult: Pulmonary Embolism, RLL DVT Date: 08/30/24 Referring Physician: Sara Alvarez MD PCP: Sara Alvarez MD Hematology/Oncology: Krys Butcher MD, Rogelio Panda CNP Interval History: 02/16/25 Lola Drew returns in follow up of her pulmonary embolism. She was seen in consult on 08/30/24. She was referred by Dr. Alvarez for recommendations regarding recent diagnosis of bilateral pulmonary embolism and RLL DVT. She is currently on Eliquis and denies any abnormal bleeding issues. Her Prothrombin gene mutation and factor V leiden were both negative. She had a doppler ultrasound earlier this week shows complete resolution of thrombus in the right peroneal veins. History of Present Illness: Lola Drew is a 74 y.o. female with a history of pulmonary embolism, vitamin D deficiency, osteopenia, sleep apnea, hypercholesterolemia, GERD, depression, COPD, colitis, bronchitis, and asthma.She was referred by Dr. Alvarez for recommendations regarding recent diagnosis of bilateral pulmonary embolism and RLL DVT. Patient presented to the ED on 07/24/24 with worsening shortness of breath cough, and chest heaviness over the previous 2 weeks. She had been placed on antibiotics without much improvement. CT for PE demonstrated evidence of a large bilateral pulmonary embolisms with right heart strain. Patient was given heparin bolus and infusion. Patient admitted to [place] ICU for further evaluation of pulmonary embolisms with right heart strain and elevated troponin. The echocardiogram was performed which showed hyperdynamic left ventricle with ejection fraction greater than 65 to 70%, and moderately severe pulmonary hypertension, PA and RV systolic pressure around 69 mm. She was also found to have acute DVT in mid peroneal veins (one of the paired) of the right lower extremity. She was discharged on Eliquis. She denies any recent surgery or travel prior to her VTE. No previous history of VTE, no family history of clotting disorder. She was again seen in the ED on 07/30/24 for bronchitis ang given steroids and doxycycline. Shortness of breath on exertion, fatigue, edema of left lower extremity. Past Medical and Surgical History Past Medical History: Diagnosis Date Anxiety Asthma Bronchiectasis (HCC) Bronchitis Cataract Chronic bronchitis (HCC) Clotting disorder 07/28/2024 blood clots Colitis COPD (chronic obstructive pulmonary disease) (HCC) Deep vein thrombosis (HCC) Depression Disease of thyroid gland GERD (gastroesophageal reflux disease) Hypercholesterolemia Insomnia Obstructive sleep apnea Osteopenia Pneumonia Primary central sleep apnea Pulmonary arterial hypertension (HCC) Pulmonary embolism (HCC) Rheumatoid arthritis (HCC) TMJ dysfunction Vitamin D deficiency Past Surgical History: Procedure Laterality Date APPENDECTOMY COLONOSCOPY CT COLONOSCOPY 05/18/2019 CT COLONOSCOPY EYE SURGERY FINGER SURGERY Bilateral 11/03/2009 thumb FOOT SURGERY FRACTURE SURGERY HYSTERECTOMY (CERVIX REMAINS) HYSTERECTOMY (CERVIX REMOVED) NASAL SEPTUM SURGERY 1989 possibly SKIN BIOPSY TONSILLECTOMY AND ADENOIDECTOMY UPPER GASTROINTESTINAL ENDOSCOPY Allergies and Medications Allergies Allergen Reactions Amoxicillin Bee Venom Protein (Honey Bee) Swelling Sulfa (Sulfonamide Antibiotics) Penicillins Rash Current Outpatient Medications Medication Sig Dispense Refill albuterol 90 mcg/actuation inhaler Inhale 2 (two) puffs every 6 (six) hours as needed for wheezing . aspirin 81 MG EC tablet Take 1 (one) tablet (81 mg total) by mouth daily . buPROPion (WELLBUTRIN XL) 300 MG 24 hr tablet Take 1 (one) tablet (300 mg total) by mouth daily . 100 tablet 3 clobetasoL (TEMOVATE) 0.05 % scalp solution doxycycline hyclate (VIBRA-TABS) 100 MG tablet Take 1 (one) tablet (100 mg total) by mouth 2 (two) times a day for 7 days . 14 tablet 0 DULoxetine (CYMBALTA) 30 MG capsule Take 1 (one) capsule (30 mg total) by mouth daily Total of 90 mg with 60 mg prescription . 100 capsule 3 DULoxetine (CYMBALTA) 60 MG capsule Take 1 (one) capsule (60 mg total) by mouth daily Total 90 mg daily . 100 capsule 3 fexofenadine (ARIELLA) 180 MG tablet Take 1 (one) tablet (180 mg total) by mouth . fluticasone propionate (FLONASE) 50 mcg/actuation nasal spray Instill 1 (one) spray into each nostril daily . 16 g 5 cncsgeoetav-brfcvtufs-xaggcesf (Trelegy Ellipta) 200-62.5-25 mcg DsDv Inhale 1 (one) Inhalation. daily . 60 each 5 furosemide (LASIX) 40 MG tablet Take 1 (one) tablet (40 mg total) by mouth 2 (two) times a day . 60 tablet 2 ipratropium-albuteroL (DUO-NEB) 0.5-2.5 mg/3 ml nebulizer Take 3 mL by nebulization 3 (three) times a day . 270 mL 2 levocetirizine (XYZAL) 5 MG tablet Take 1 (one) tablet (5 mg total) by mouth every evening . 30 tablet 11 levothyroxine (SYNTHROID, LEVOTHROID) 75 MCG tablet Take 1 (one) tablet (75 mcg total) by mouth daily . 100 tablet 3 meclizine (ANTIVERT) 25 mg tablet Take 1 (one) tablet (25 mg total) by mouth 3 (three) times a day as needed for nausea . 30 tablet 0 methylPREDNISolone (MEDROL DOSEPACK) 4 mg tablet Follow package directions . 21 tablet 0 montelukast (SINGULAIR) 10 mg tablet Take 1 (one) tablet (10 mg total) by mouth daily . 100 tablet 3 nitroGLYCERIN (NITROSTAT) 0.[address] 1 (one) tablet (0.4 mg total) under the tongue every 5 (five) minutes as needed for chest pain , if no relief after 3 doses call 911 . 100 tablet 0 NONFORMULARY CPAP 9cm H20 (DASCO) in [facility] ondansetron (ZOFRAN-ODT) 4 MG disintegrating tablet Dissolve 1 (one) tablet (4 mg total) on top of tongue every 6 to 8 hours as needed for nausea . 20 tablet 0 semaglutide, weight loss, (Wegovy) 0.25 mg/0.5 mL Pen Inject 0.5 mL (0.25 mg total) under the skin once a week . 2 mL 1 simvastatin (ZOCOR) 40 MG tablet Take 1 (one) tablet (40 mg total) by mouth daily . 100 tablet 3 SUMAtriptan (IMITREX) 50 MG tablet Take 1 (one) tablet (50 mg total) by mouth every 2 (two) hours as needed for migraine Max of 200 mg in 24hrs, do not treat more than 3 times a week . 10 tablet 0 pantoprazole (PROTONIX) 40 MG tablet Take by mouth . (Patient not taking: Reported on 02/16/2025 .) potassium chloride (MICRO-K) 10 MEQ CR capsule Take 1 (one) capsule (10 mEq total) by mouth daily . (Patient not taking: Reported on 02/16/2025 .) 90 capsule 1 No current facility-administered medications for this visit. Family History Problem Relation Age of Onset Other (unknown cancer) Mother Cancer Mother Early Mother Heart attack Father age 54 Asthma Father Cancer Father Early Father Arthritis Paternal Grandfather Unknown Sister Social History Socioeconomic History Marital status: Occupational History Employer: [employer] Tobacco Use Smoking status: Former Current packs/day: 0.00 Average packs/day: 1 pack/day for 44.0 years (44.0 ttl pk-yrs) Types: Cigarettes Start date: 03/03/1971 Quit date: 03/03/2015 Years since quittin.9 Tobacco comments: vape Vaping Use Vaping status: Every Day Substances: Nicotine, Flavoring Devices: Disposable Substance and Sexual Activity Alcohol use: Not Currently Comment: social maybe one a month Drug use: Never Sexual activity: Not Currently control/protection: Post-menopausal Social Drivers of Health Food Insecurity: No Food Insecurity (10/19/2024) Hunger Vital Sign Worried About Running Out of Food in the Last Year: Never true Ran Out of Food in the Last Year: Never true Transportation Needs: No Transportation Needs (10/19/2024) PRAPARE - Transportation Lack of Transportation (Medical): No Lack of Transportation (Non-Medical): No Housing Stability: Low Risk (10/19/2024) Housing Stability Vital Sign Unable to Pay for Housing in the Last Year: No Number of Times Moved in the Last Year: 0 Homeless in the Last Year: No Review of Systems Review of Systems:A complete review of systems was performed and is negative except for what is listed in the HPI. Physical Exam ECOG 1-2 PACU Vitals 02/16/25 1041 BP: 118/60 Pulse: (!) 53 Temp: 98.1 F (36.7 C) SpO2: 94% General Appearance: Alert, well developed, and in no acute distress. HEENT: Head - Normocephalic, atraumatic. No temporal wasting . Eyes - CLEMENTINE bilaterally and EOMI, anicteric sclerae. Ears - normal external appearance, hearing intact. Nose - normal, no erythema. Throat - mucous membranes moist, pharynx without lesions. Neck: Supple, trachea midline. Cardiovascular: S1, S2 normal. No murmurs, rubs, clicks or gallops appreciated. Mild pedal edema. Respiratory: Lungs clear to auscultation, no wheezes, rales or rhonchi heard. Lymphatics: no new adenopathy in cervical, supraclavicular, axillary, inguinal regions Abdomen: Soft, non-tender, normal bowel sounds, non-distended, no hepatosplenomegaly Neurological: Grossly normal motor and sensory exam. No focal deficits. Musculoskeletal: No joint tenderness, deformity. Skin: Normal coloration and turgor. No rashes. Psych: Alert, oriented x 3. Normal mood and affect. Labs: Lab Results Component Value Date WBC 5.34 10/20/2024 HGB 13.7 10/20/2024 HCT 41.0 10/20/2024 PLT 188 10/20/2024 08/30/2024 Prothrombin gene mutation and factor V leiden were both negative. Radiology: Doppler ultrasound RLE 02/14/25 Right. Complete resolution of thrombus in the right peroneal veins. All other veins are within normal in the right lower extremity. CCTA 10/20/24 1.Suboptimal opacification of the pulmonary arteries. Grossly, no central or large pulmonary emboli. 2.Multiple small pulmonary nodules of the lower lobes measuring up to 4 mm. Similar findings seen on 07/29/2024 CT low-dose lung screening. Recommend continued annual low dose lung screening examination. 3.Mild mucosal debris scattered throughout the bronchi. 4.Hepatic steatosis. 5.Small hiatal hernia Doppler ultrasound RLL 09/15/24 1. Age Indeterminate deep vein thrombosis in the mid peroneal veins of the right lower extremity. 2. No progression/extension of deep vein thrombosis from peroneal veins relative to prior study. 3. Remainder of the veins are within normal limi CT lung cancer screening 07/29/24 1.Mild peribronchial thickening consistent with acute and/or chronic bronchitis. 2.Noncalcified nodules ranging from 1.9 mm to 3.6 mm. There are no pathologically enlarged lymph nodes. 3.Additional findings as described in the body of the report. Lung rads score 2. A low-dose CT lung screening examination in 12 months is recommended. Bilateral doppler ultrasounds 07/26/24 Right: Acute deep vein thrombosis in the mid peroneal veins (one of the paired) of the right lower extremity. All other vein visualized in the right lower extremity are within normal limits. Left: No evidence of deep vein thrombosis in the left lower extremity CT pulmonary arteries 07/24/24 1.Extensive bilateral pulmonary emboli with suggestion of at least mild right heart strain. 2.Heterogeneous lungs suggesting air trapping versus ground-glass infiltrates or progressive heterogeneous fibrotic lung disease. The upper lobe shows some peripheral areas of air-trapping versus emphysema. 3.Cholelithiasis. Assessment and Recommendations Assessment/recommendation: Lola Drew is a 74 y.o. female with a history of pulmonary embolism, vitamin D deficiency, osteopenia, sleep apnea, hypercholesterolemia, GERD, depression, COPD, colitis, bronchitis, and asthma.She was referred by Dr. Alvarez for recommendations regarding recent diagnosis of bilateral pulmonary embolism and right lower extremity deep vein thrombosis. Bilateral pulmonary embolism and right lower extremity deep vein thrombosis. -Patient presented to the ED on 07/24/24 with worsening shortness of breath cough, and chest heaviness over the previous [address] for PE demonstrated evidence of a large bilateral pulmonary embolisms with right heart strain. She was also found to have acute DVT in mid peroneal veins (one of the paired) of the right lower extremity. She was discharged on Eliquis. -She denies any recent surgery or travel prior to her VTE. No previous history of VTE, no family history of clotting disorder. 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 She is fairly sedentary given her COPD. Given this, I would recommend 3-6 months of anticoagulation - 08/30/2024 Prothrombin gene mutation and factor V leiden were both negative. - Doppler ultrasound 09/15/24 with age Indeterminate deep vein thrombosis in the mid peroneal veins of the right lower extremity and no progression/extension of deep vein thrombosis from peroneal veins relative to prior study. - Will repeat doppler ultrasound in 3 months and continue Eliquis. 10/20/24 CCTA does not mention previously seen PE -02/16/25 doppler ultrasound earlier this week shows complete resolution of thrombus in the right peroneal veins. She has completed 7 months of therapy with Eliquis. - Patient understands that she has increased risk of recurrent VTE given her history. Pulmonary nodules/ Nicotine dependence: Per history. 44 pack year history of smoking, quit 4 years ago. Nodules noted on CT lung cancer screening 07/29/24. Repeat in one year. Ordered by Pulmonology. COPD: per history. She follows with [facility] Pulmonology. Follow up as scheduled. Routine cancer screenings: Colonoscopy in 2019. Cologuard testing negative 08/16/24. Repeat in 3 years. Mammogram: 08/04/2024 Education Provided Education/Instructions given to: (x) Patient (_) Spouse (_) Parent (_) Other Barriers to Learning: (x) None (_) Yes (identify):_ Content: (x) Refer to note above (_)Other (identify):_ Evaluation/Outcome: (x) Verbalized understanding (_) Demonstrated understanding (_) Other:_ Advanced Directives: Full Code DEEPTHI Boothe- BC documented in this encounter [facility] 02-16-2025 Note Hematology/Oncology Clinic Follow Up Note Patient ID: Lola Drew is a 74 y.o. female Reason for Consult: Pulmonary Embolism, RLL DVT Date: 08/30/24 Referring Physician: Sara Alvarez MD PCP: Sara Alvarez MD Hematology/Oncology: Krys Butcher MD, Rogelio Panda CNP Interval History: 02/16/25 Lola Drew returns in follow up of her pulmonary embolism. She was seen in consult on 08/30/24. She was referred by Dr. Alvarez for recommendations regarding recent diagnosis of bilateral pulmonary embolism and RLL DVT. She is currently on Eliquis and denies any abnormal bleeding issues. Her Prothrombin gene mutation and factor V leiden were both negative. She had a doppler ultrasound earlier this week shows complete resolution of thrombus in the right peroneal veins. History of Present Illness: Lola Drew is a 74 y.o. female with a history of pulmonary embolism, vitamin D deficiency, osteopenia, sleep apnea, hypercholesterolemia, GERD, depression, COPD, colitis, bronchitis, and asthma.She was referred by Dr. Alvarez for recommendations regarding recent diagnosis of bilateral pulmonary embolism and RLL DVT. Patient presented to the ED on 07/24/24 with worsening shortness of breath cough, and chest heaviness over the previous 2 weeks. She had been placed on antibiotics without much improvement. CT for PE demonstrated evidence of a large bilateral pulmonary embolisms with right heart strain. Patient was given heparin bolus and infusion. Patient admitted to [facility] for further evaluation of pulmonary embolisms with right heart strain and elevated troponin. The echocardiogram was performed which showed hyperdynamic left ventricle with ejection fraction greater than 65 to 70%, and moderately severe pulmonary hypertension, PA and RV systolic pressure around 69 mm. She was also found to have acute DVT in mid peroneal veins (one of the paired) of the right lower extremity. She was discharged on Eliquis. She denies any recent surgery or travel prior to her VTE. No previous history of VTE, no family history of clotting disorder. She was again seen in the ED on 07/30/24 for bronchitis ang given steroids and doxycycline. Shortness of breath on exertion, fatigue, edema of left lower extremity. Past Medical and Surgical History Past Medical History: Diagnosis Date Anxiety Asthma Bronchiectasis (HCC) Bronchitis Cataract Chronic bronchitis (HCC) Clotting disorder 07/28/2024 blood clots Colitis COPD (chronic obstructive pulmonary disease) (HCC) Deep vein thrombosis (HCC) Depression Disease of thyroid gland GERD (gastroesophageal reflux disease) Hypercholesterolemia Insomnia Obstructive sleep apnea Osteopenia Pneumonia Primary central sleep apnea Pulmonary arterial hypertension (HCC) Pulmonary embolism (HCC) Rheumatoid arthritis (HCC) TMJ dysfunction Vitamin D deficiency Past Surgical History: Procedure Laterality Date APPENDECTOMY COLONOSCOPY CT COLONOSCOPY 05/18/2019 CT COLONOSCOPY EYE SURGERY FINGER SURGERY Bilateral 11/03/2009 thumb FOOT SURGERY FRACTURE SURGERY HYSTERECTOMY (CERVIX REMAINS) HYSTERECTOMY (CERVIX REMOVED) NASAL SEPTUM SURGERY 1989 possibly SKIN BIOPSY TONSILLECTOMY AND ADENOIDECTOMY UPPER GASTROINTESTINAL ENDOSCOPY Allergies and Medications Allergies Allergen Reactions Amoxicillin Bee Venom Protein (Honey Bee) Swelling Sulfa (Sulfonamide Antibiotics) Penicillins Rash Current Outpatient Medications Medication Sig Dispense Refill albuterol 90 mcg/actuation inhaler Inhale 2 (two) puffs every 6 (six) hours as needed for wheezing . aspirin 81 MG EC tablet Take 1 (one) tablet (81 mg total) by mouth daily . buPROPion (WELLBUTRIN XL) 300 MG 24 hr tablet Take 1 (one) tablet (300 mg total) by mouth daily . 100 tablet 3 clobetasoL (TEMOVATE) 0.05 % scalp solution doxycycline hyclate (VIBRA-TABS) 100 MG tablet Take 1 (one) tablet (100 mg total) by mouth 2 (two) times a day for 7 days . 14 tablet 0 DULoxetine (CYMBALTA) 30 MG capsule Take 1 (one) capsule (30 mg total) by mouth daily Total of 90 mg with 60 mg prescription . 100 capsule 3 DULoxetine (CYMBALTA) 60 MG capsule Take 1 (one) capsule (60 mg total) by mouth daily Total 90 mg daily . 100 capsule 3 fexofenadine (ARIELLA) 180 MG tablet Take 1 (one) tablet (180 mg total) by mouth . fluticasone propionate (FLONASE) 50 mcg/actuation nasal spray Instill 1 (one) spray into each nostril daily . 16 g 5 adwengtcpvp-yzpkbkckl-ujdtjizy (Trelegy Ellipta) 200-62.5-25 mcg DsDv Inhale 1 (one) Inhalation. daily . 60 each 5 furosemide (LASIX) 40 MG tablet Take 1 (one) tablet (40 mg total) by mouth 2 (two) times a day . 60 tablet 2 ipratropium-albuteroL (DUO-NEB) 0.5-2.5 mg/3 ml nebulizer Take 3 mL by nebulization 3 (three) times a day . 270 mL 2 levocetirizine (XYZAL) 5 MG tablet Take 1 (one) tablet (5 mg total) by mouth (more content not included)... [facility] 02-15-2025 Instructions Rogelio Panda CNP - 02/15/2025 5:53 PM EDT Your blood clot has resolved. You can stop your Eliquis. Follow up as needed documented in this encounter [facility] 02-10-2025 Note Subjective Patient ID: Lola rDew is a 74 y.o. female. Chief Complaint Patient presents with Cough Congestion headache x couple days Cough Lola is a 70-year-old female who presents to the office today for sinus congestion, headache, postnasal drip, shortness of breath that has been worsening over the past few days. Tells me for the past 2 weeks she has been including her baseline, which is when she noticed symptoms starting. She denies any ear pain, nausea vomiting, diarrhea. States her cough is productive with thick green mucus. She does have past medical history of allergies, COPD and asthma for which she is on Trelegy, albuterol and uses Flonase and Xyzal daily. The following portions of the patient's history were reviewed and updated as appropriate: allergies, current medications, past family history, past medical history, past social history, past surgical history, and problem list. Past Medical History: Diagnosis Date Asthma Bronchitis Colitis COPD (chronic obstructive pulmonary disease) (HCC) Deep vein thrombosis (HCC) Depression GERD (gastroesophageal reflux disease) Hypercholesterolemia Insomnia Obstructive sleep apnea Osteopenia Pulmonary embolism (HCC) Vitamin D deficiency Past Surgical History: Procedure Laterality Date APPENDECTOMY CT COLONOSCOPY 05/18/2019 CT COLONOSCOPY FINGER SURGERY Bilateral 11/03/2009 thumb FOOT SURGERY HYSTERECTOMY (CERVIX REMAINS) NASAL SEPTUM SURGERY 1989 possibly TONSILLECTOMY AND ADENOIDECTOMY Social History[1] Family History Problem Relation Age of Onset Other (unknown cancer) Mother Heart attack Father age 54 Asthma Father Unknown Sister Allergies[2] Outpatient Medications as of 02/10/2025 Medication Sig albuterol 90 mcg/actuation inhaler Inhale 2 (two) puffs every 6 (six) hours as needed for wheezing . apixaban (Eliquis) 5 mg Tab Take 1 (one) tablet (5 mg total) by mouth 2 (two) times a day . aspirin 81 MG EC tablet Take 1 (one) tablet (81 mg total) by mouth daily . buPROPion (WELLBUTRIN XL) 300 MG 24 hr tablet Take 1 (one) tablet (300 mg total) by mouth daily . clobetasoL (TEMOVATE) 0.05 % scalp solution DULoxetine (CYMBALTA) 30 MG capsule Take 1 (one) capsule (30 mg total) by mouth daily Total of 90 mg with 60 mg prescription . DULoxetine (CYMBALTA) 60 MG capsule Take 1 (one) capsule (60 mg total) by mouth daily Total 90 mg daily . fexofenadine (ARIELLA) 180 MG tablet Take 1 (one) tablet (180 mg total) by mouth . fluticasone propionate (FLONASE) 50 mcg/actuation nasal spray Instill 1 (one) spray into each nostril daily . qqowgtspuuz-ttnfzevak-uwbxseti (Trelegy Ellipta) 200-62.5-25 mcg DsDv Inhale 1 (one) Inhalation. daily . furosemide (LASIX) 40 MG tablet Take 1 (one) tablet (40 mg total) by mouth 2 (two) times a day . ipratropium-albuteroL (DUO-NEB) 0.5-2.5 mg/3 ml nebulizer Take 3 mL by nebulization 3 (three) times a day . levocetirizine (XYZAL) 5 MG tablet Take 1 (one) tablet (5 mg total) by mouth every evening . levothyroxine (SYNTHROID, LEVOTHROID) 75 MCG tablet Take 1 (one) tablet (75 mcg total) by mouth daily . meclizine (ANTIVERT) 25 mg tablet Take 1 (one) tablet (25 mg total) by mouth 3 (three) times a day as needed for nausea . montelukast (SINGULAIR) 10 mg tablet Take 1 (one) tablet (10 mg total) by mouth daily . nitroGLYCERIN (NITROSTAT) 0.[address] 1 (one) tablet (0.4 mg total) under the tongue every 5 (five) minutes as needed for chest pain , if no relief after 3 doses call 911 . NONFORMULARY CPAP 9cm H20 ([facility] [place] in [facility] ondansetron (ZOFRAN-ODT) 4 MG disintegrating tablet Dissolve 1 (one) tablet (4 mg total) on top of tongue every 6 to 8 hours as needed for nausea . pantoprazole (PROTONIX) 40 MG tablet Take by mouth . potassium chloride (MICRO-K) 10 MEQ CR capsule Take 1 (one) capsule (10 mEq total) by mouth daily . semaglutide, weight loss, (Wegovy) 0.25 mg/0.5 mL Pen Inject 0.5 mL (0.25 mg total) under the skin once a week . simvastatin (ZOCOR) 40 MG tablet Take 1 (one) tablet (40 mg total) by mouth daily . SUMAtriptan (IMITREX) 50 MG tablet Take 1 (one) tablet (50 mg total) by mouth every 2 (two) hours as needed for migraine Max of 200 mg in 24hrs, do not treat more than 3 times a week . Review of Systems Respiratory: Positive for cough. Objective BP 120/71 (BP Location: Left arm, Patient Position: Sitting, BP Cuff Size: X-large Adult) Pulse (!) 59 Temp 98 degrees F (36.7 degrees C) Resp 18 Ht 5' 4 Wt 107.5 kg (236 lb 14.4 oz) SpO2 92% BMI 40.66 kg/m Physical Exam Constitutional: Appearance: She is ill-appearing. HENT: Right Ear: Tympanic membrane, ear canal and external ear normal. Left Ear: Tympanic membrane, ear canal and external ear normal. Nose: Congestion and rhinorrhea present. Mouth/Throat: Mouth: Mucous membranes are moist. Pharynx: No oropharyngeal exudate (more content not included)... [facility] 02-10-2025 History of Present illness Narrative Images from the original note were not included. Subjective Patient ID: Lola Drew is a 74 y.o. female. Chief Complaint Patient presents with Cough Congestion headache x couple days Cough Lola is a 70-year-old female who presents to the office today for sinus congestion, headache, postnasal drip, shortness of breath that has been worsening over the past few days. Tells me for the past 2 weeks she has been including her baseline, which is when she noticed symptoms starting. She denies any ear pain, nausea vomiting, diarrhea. States her cough is productive with thick green mucus. She does have past medical history of allergies, COPD and asthma for which she is on Trelegy, albuterol and uses Flonase and Xyzal daily. The following portions of the patient's history were reviewed and updated as appropriate: allergies, current medications, past family history, past medical history, past social history, past surgical history, and problem list. Past Medical History: Diagnosis Date Asthma Bronchitis Colitis COPD (chronic obstructive pulmonary disease) (HCC) Deep vein thrombosis (HCC) Depression GERD (gastroesophageal reflux disease) Hypercholesterolemia Insomnia Obstructive sleep apnea Osteopenia Pulmonary embolism (HCC) Vitamin D deficiency Past Surgical History: Procedure Laterality Date APPENDECTOMY CT COLONOSCOPY 05/18/2019 CT COLONOSCOPY FINGER SURGERY Bilateral 11/03/2009 thumb FOOT SURGERY HYSTERECTOMY (CERVIX REMAINS) NASAL SEPTUM SURGERY 1989 possibly TONSILLECTOMY AND ADENOIDECTOMY Social History[1] Family History Problem Relation Age of Onset Other (unknown cancer) Mother Heart attack Father age 54 Asthma Father Unknown Sister Allergies[2] Outpatient Medications as of 02/10/2025 Medication Sig albuterol 90 mcg/actuation inhaler Inhale 2 (two) puffs every 6 (six) hours as needed for wheezing . apixaban (Eliquis) 5 mg Tab Take 1 (one) tablet (5 mg total) by mouth 2 (two) times a day . aspirin 81 MG EC tablet Take 1 (one) tablet (81 mg total) by mouth daily . buPROPion (WELLBUTRIN XL) 300 MG 24 hr tablet Take 1 (one) tablet (300 mg total) by mouth daily . clobetasoL (TEMOVATE) 0.05 % scalp solution DULoxetine (CYMBALTA) 30 MG capsule Take 1 (one) capsule (30 mg total) by mouth daily Total of 90 mg with 60 mg prescription . DULoxetine (CYMBALTA) 60 MG capsule Take 1 (one) capsule (60 mg total) by mouth daily Total 90 mg daily . fexofenadine (ARIELLA) 180 MG tablet Take 1 (one) tablet (180 mg total) by mouth . fluticasone propionate (FLONASE) 50 mcg/actuation nasal spray Instill 1 (one) spray into each nostril daily . uzxezphclsy-xqxhreupq-khcmjwmw (Trelegy Ellipta) 200-62.5-25 mcg DsDv Inhale 1 (one) Inhalation. daily . furosemide (LASIX) 40 MG tablet Take 1 (one) tablet (40 mg total) by mouth 2 (two) times a day . ipratropium-albuteroL (DUO-NEB) 0.5-2.5 mg/3 ml nebulizer Take 3 mL by nebulization 3 (three) times a day . levocetirizine (XYZAL) 5 MG tablet Take 1 (one) tablet (5 mg total) by mouth every evening . levothyroxine (SYNTHROID, LEVOTHROID) 75 MCG tablet Take 1 (one) tablet (75 mcg total) by mouth daily . meclizine (ANTIVERT) 25 mg tablet Take 1 (one) tablet (25 mg total) by mouth 3 (three) times a day as needed for nausea . montelukast (SINGULAIR) 10 mg tablet Take 1 (one) tablet (10 mg total) by mouth daily . nitroGLYCERIN (NITROSTAT) 0.[address] 1 (one) tablet (0.4 mg total) under the tongue every 5 (five) minutes as needed for chest pain , if no relief after 3 doses call 911 . NONFORMULARY CPAP 9cm H20 ([employer]) in [facility] ondansetron (ZOFRAN-ODT) 4 MG disintegrating tablet Dissolve 1 (one) tablet (4 mg total) on top of tongue every 6 to 8 hours as needed for nausea . pantoprazole (PROTONIX) 40 MG tablet Take by mouth . potassium chloride (MICRO-K) 10 MEQ CR capsule Take 1 (one) capsule (10 mEq total) by mouth daily . semaglutide, weight loss, (Wegovy) 0.25 mg/0.5 mL Pen Inject 0.5 mL (0.25 mg total) under the skin once a week . simvastatin (ZOCOR) 40 MG tablet Take 1 (one) tablet (40 mg total) by mouth daily . SUMAtriptan (IMITREX) 50 MG tablet Take 1 (one) tablet (50 mg total) by mouth every 2 (two) hours as needed for migraine Max of 200 mg in 24hrs, do not treat more than 3 times a week . Review of Systems Respiratory: Positive for cough. Objective BP 120/71 (BP Location: Left arm, Patient Position: Sitting, BP Cuff Size: X-large Adult) Pulse (!) 59 Temp 98 F (36.7 C) Resp 18 Ht 5' 4 Wt 107.5 kg (236 lb 14.4 oz) SpO2 92% BMI 40.66 kg/m Physical Exam Constitutional: Appearance: She is ill-appearing. HENT: Right Ear: Tympanic membrane, ear canal and external ear normal. Left Ear: Tympanic membrane, ear canal and external ear normal. Nose: Congestion and rhinorrhea present. Mouth/Throat: Mouth: Mucous membranes are moist. Pharynx: No oropharyngeal exudate or posterior oropharyngeal erythema. Cardiovascular: Rate and Rhythm: Normal rate and regular rhythm. Heart sounds: Normal heart sounds. Pulmonary: Effort: Pulmonary effort is normal. Breath sounds: Wheezing (throughout) present. Comments: Coarse breath sounds Skin: General: Skin is warm and dry. Neurological: Mental Status: She is alert and oriented to person, place, and time. Psychiatric: Mood and Affect: Mood normal. Behavior: Behavior normal. Thought Content: Thought content normal. Judgment: Judgment normal. Assessment/Plan: Diagnoses and all orders for this visit: Acute non-recurrent maxillary sinusitis - methylPREDNISolone (MEDROL DOSEPACK) 4 mg tablet; Follow package directions . - doxycycline hyclate (VIBRA-TABS) 100 MG tablet; Take 1 (one) tablet (100 mg total) by mouth 2 (two) times a day for 7 days . COPD with acute exacerbation (HCC) - methylPREDNISolone (MEDROL DOSEPACK) 4 mg tablet; Follow package directions . - doxycycline hyclate (VIBRA-TABS) 100 MG tablet; Take 1 (one) tablet (100 mg total) by mouth 2 (two) times a day for 7 days . Discussed with patient we will treat for sinusitis as well as COPD exacerbation. Will send in steroid taper dose as well as doxycycline antibiotic twice daily for 7 days. Encouraged her to also use her albuterol nebulizers at home. Encouraged nonpharmacological management as well including but not limited to increasing water intake, elevating head of bed at night, resting, vaporizer in room, and healthy diet. Warning signs symptoms reviewed with patient when to follow-up. Please note: Portions of this chart may have been created with [employer] voice recognition software. Occasional wrong-word or sound-like substitutions may have occurred due to inherent limitations of the voice recognition software. Please read the chart carefully and recognize, using context, where the substitutions have occurred. Electronically signed by CHARLENE Chopra 2:24 PM [1] Social History Tobacco Use Smoking status: Former Current packs/day: 0.00 Average packs/day: 1 pack/day for 44.0 years (44.0 ttl pk-yrs) Types: Cigarettes Start date: 03/03/1971 Quit date: 03/03/2015 Years since quittin.9 Tobacco comments: 1 ppd for 44 years, quit March 2015 Vaping Use Vaping status: Every Day Substances: Nicotine, Flavoring Devices: Disposable Substance Use Topics Alcohol use: Not Currently Comment: 1 drink per year Drug use: No [2] Allergies Allergen Reactions Amoxicillin Bee Venom Protein (Honey Bee) Swelling Sulfa (Sulfonamide Antibiotics) Penicillins Rash documented in this encounter [facility] 12-28-2024 Evaluation + Plan note Associated Problem(s): JOHNATHAN on CPAP History of JOHNATHAN confirmed with sleep study , need new CPAP supplies this year [facility] 12-28-2024 Miscellaneous Notes Associated Problem(s): JOHNATHAN on CPAP History of JOHNATHAN confirmed with sleep study , need new CPAP supplies this year documented in this encounter [facility] 11-22-2024 Note Subjective Patient I D: Lola Drew is a 74 y.o. female here for Chief Complaint Patient presents with Follow-up 3 month f/u-sinus issues After discussing the use of ambient listening and audio recording in generating medical documentation, the patient verbally consented to use of this technology for today's visit. History of Present Illness Cough: 11/22 She reports experiencing her usual sinus symptoms and cough, which are exacerbated by dry weather or allergies. She has been exposed to various illnesses within her household, including RSV, bronchitis, ear infections, influenza, and strep throat, but she has been trying to stay away from it. Despite these symptoms, she is able to perform her daily activities. She finds relief with Flonase, administered as one spray in each nostril twice daily, but currently has no refills. She also takes Ariella and Singulair daily for her breathing. Obesity: She expresses interest in weight loss patches and admits to a strong preference for food, particularly diet Pepsi. Hypothyroidism: She has been on a consistent regimen of levothyroxine 75 mcg for approximately 1 to 2 years. She has not required meclizine for vertigo or headaches and has not experienced any headaches since her last visit. She has been on Protonix for an extended period due to occasional abdominal pain, described as a swelling sensation that becomes lodged in her ribs. However, she continues to experience this discomfort even while on Protonix. PE: She is on Eliquis for pulmonary embolism and requires a refill. Depression: She is on Wellbutrin and Cymbalta 90 mg for depression and anxiety. Asthma: She is on Trelegy inhaler for asthma and has refills for that. Allergies: She is on Singulair for her breathing and has been on it for many years. MEDICATIONS Current: Flonase, Ariella, Singulair, Eliquis, Wellbutrin, Cymbalta, Trelegy, levothyroxine, Protonix, Imitrex, meclizine Past Medical History: Diagnosis Date Asthma Bronchitis Colitis COPD (chronic obstructive pulmonary disease) (HCC) Deep vein thrombosis (HCC) Depression GERD (gastroesophageal reflux disease) Hypercholesterolemia Insomnia Obstructive sleep apnea Osteopenia Pulmonary embolism (HCC) Vitamin D deficiency Past Surgical History: Procedure Laterality Date APPENDECTOMY CT COLONOSCOPY 05/18/2019 CT COLONOSCOPY FINGER SURGERY Bilateral 11/03/2009 thumb FOOT SURGERY HYSTERECTOMY (CERVIX REMAINS) NASAL SEPTUM SURGERY 1989 possibly TONSILLECTOMY AND ADENOIDECTOMY Family History Problem Relation Age of Onset Other (unknown cancer) Mother Heart attack Father age 54 Asthma Father Unknown Sister Social History Tobacco Use Smoking status: Former Current packs/day: 0.00 Average packs/day: 1 pack/day for 44.0 years (44.0 ttl pk-yrs) Types: Cigarettes Start date: 03/03/1971 Quit date: 03/03/2015 Years since quittin.8 Tobacco comments: 1 ppd for 44 years, quit March 2015 Vaping Use Vaping status: Every Day Substances: Nicotine, Flavoring Devices: Disposable Substance Use Topics Alcohol use: Not Currently Comment: 1 drink per year Drug use: No Review of Systems Vitals: 11/22/24 1337 BP: 131/73 BP Location: Right arm Patient Position: Sitting BP Cuff Size: X-large Adult Pulse: (!) 59 Resp: 16 Temp: 98.2 degrees F (36.8 degrees C) TempSrc: Temporal SpO2: 94% Weight: 107 kg (236 lb) Height: 5' 4 Estimated body mass index is 40.51 kg/m as calculated from the following: Height as of this encounter: 5' 4. Weight as of this encounter: 107 kg (236 lb). Physical Exam Constitutional: General: She is not in acute distress. Appearance: She is not ill-appearing. HENT: Head: Normocephalic and atraumatic. Nose: Nose normal. Mouth/Throat: Mouth: Mucous membranes are moist. Pharynx: Oropharynx is clear. No oropharyngeal exudate or posterior oropharyngeal erythema. Eyes: Extraocular Movements: Extraocular movements intact. Conjunctiva/sclera: Conjunctivae normal. Pupils: Pupils are equal, round, and reactive to light. Cardiovascular: Rate and Rhythm: Normal rate and regular rhythm. Pulses: Normal pulses. Heart sounds: Normal heart sounds. No murmur heard. No gallop. Pulmonary: Effort: Pulmonary effort is normal. Breath sounds: No wheezing, rhonchi or rales. Chest: Chest wall: No tenderness. Abdominal: General: Abdomen is flat. Bowel sounds are normal. There is no distension. Palpations: Abdomen is soft. There is no mass. Tenderness: There is no abdominal tenderness. There is no right CVA tenderness, left CVA tenderness, guarding or rebound. Musculoskeletal: General: No tenderness. Normal range of motion. Cervical back: Normal range of motion and neck supple. No rigidity. No muscular tenderness. Right lower leg: No edema. Left lower leg: No edema. Lymphadenopathy: Cervical (more content not included)... [facility] 11-22-2024 History of Present illness Narrative Subjective Patient ID: Lola Drew is a 74 y.o. female here for Chief Complaint Patient presents with Follow-up 3 month f/u-sinus issues After discussing the use of ambient listening and audio recording in generating medical documentation, the patient verbally consented to use of this technology for today's visit. History of Present Illness Cough: 11/22 She reports experiencing her usual sinus symptoms and cough, which are exacerbated by dry weather or allergies. She has been exposed to various illnesses within her household, including RSV, bronchitis, ear infections, influenza, and strep throat, but she has been trying to stay away from it. Despite these symptoms, she is able to perform her daily activities. She finds relief with Flonase, administered as one spray in each nostril twice daily, but currently has no refills. She also takes Ariella and Singulair daily for her breathing. Obesity: She expresses interest in weight loss patches and admits to a strong preference for food, particularly diet Pepsi. Hypothyroidism: She has been on a consistent regimen of levothyroxine 75 mcg for approximately 1 to 2 years. She has not required meclizine for vertigo or headaches and has not experienced any headaches since her last visit. She has been on Protonix for an extended period due to occasional abdominal pain, described as a swelling sensation that becomes lodged in her ribs. However, she continues to experience this discomfort even while on Protonix. PE: She is on Eliquis for pulmonary embolism and requires a refill. Depression: She is on Wellbutrin and Cymbalta 90 mg for depression and anxiety. Asthma: She is on Trelegy inhaler for asthma and has refills for that. Allergies: She is on Singulair for her breathing and has been on it for many years. MEDICATIONS Current: Flonase, Ariella, Singulair, Eliquis, Wellbutrin, Cymbalta, Trelegy, levothyroxine, Protonix, Imitrex, meclizine Past Medical History: Diagnosis Date Asthma Bronchitis Colitis COPD (chronic obstructive pulmonary disease) (HCC) Deep vein thrombosis (HCC) Depression GERD (gastroesophageal reflux disease) Hypercholesterolemia Insomnia Obstructive sleep apnea Osteopenia Pulmonary embolism (HCC) Vitamin D deficiency Past Surgical History: Procedure Laterality Date APPENDECTOMY CT COLONOSCOPY 05/18/2019 CT COLONOSCOPY FINGER SURGERY Bilateral 11/03/2009 thumb FOOT SURGERY HYSTERECTOMY (CERVIX REMAINS) NASAL SEPTUM SURGERY 1989 possibly TONSILLECTOMY AND ADENOIDECTOMY Family History Problem Relation Age of Onset Other (unknown cancer) Mother Heart attack Father age 54 Asthma Father Unknown Sister Social History Tobacco Use Smoking status: Former Current packs/day: 0.00 Average packs/day: 1 pack/day for 44.0 years (44.0 ttl pk-yrs) Types: Cigarettes Start date: 03/03/1971 Quit date: 03/03/2015 Years since quittin.7 Tobacco comments: 1 ppd for 44 years, quit March 2015 Vaping Use Vaping status: Every Day Substances: Nicotine, Flavoring Devices: Disposable Substance Use Topics Alcohol use: Not Currently Comment: 1 drink per year Drug use: No Review of Systems Vitals: 11/22/24 1337 BP: 131/73 BP Location: Right arm Patient Position: Sitting BP Cuff Size: X-large Adult Pulse: (!) 59 Resp: 16 Temp: 98.2 F (36.8 C) TempSrc: Temporal SpO2: 94% Weight: 107 kg (236 lb) Height: 5' 4 Estimated body mass index is 40.51 kg/m as calculated from the following: Height as of this encounter: 5' 4. Weight as of this encounter: 107 kg (236 lb). Physical Exam Constitutional: General: She is not in acute distress. Appearance: She is not ill-appearing. HENT: Head: Normocephalic and atraumatic. Nose: Nose normal. Mouth/Throat: Mouth: Mucous membranes are moist. Pharynx: Oropharynx is clear. No oropharyngeal exudate or posterior oropharyngeal erythema. Eyes: Extraocular Movements: Extraocular movements intact. Conjunctiva/sclera: Conjunctivae normal. Pupils: Pupils are equal, round, and reactive to light. Cardiovascular: Rate and Rhythm: Normal rate and regular rhythm. Pulses: Normal pulses. Heart sounds: Normal heart sounds. No murmur heard. No gallop. Pulmonary: Effort: Pulmonary effort is normal. Breath sounds: No wheezing, rhonchi or rales. Chest: Chest wall: No tenderness. Abdominal: General: Abdomen is flat. Bowel sounds are normal. There is no distension. Palpations: Abdomen is soft. There is no mass. Tenderness: There is no abdominal tenderness. There is no right CVA tenderness, left CVA tenderness, guarding or rebound. Musculoskeletal: General: No tenderness. Normal range of motion. Cervical back: Normal range of motion and neck supple. No rigidity. No muscular tenderness. Right lower leg: No edema. Left lower leg: No edema. Lymphadenopathy: Cervical: No cervical adenopathy. Skin: General: Skin is warm. Findings: No erythema or rash. Neurological: General: No focal deficit present. Mental Status: She is alert and oriented to person, place, and time. Sensory: No sensory deficit. Motor: No weakness. Gait: Gait normal. Psychiatric: Mood and Affect: Mood normal. Behavior: Behavior normal. Thought Content: Thought content normal. Judgment: Judgment normal. OARRS/NARxCHECK Report Received and Assessed: Date controlled substance agreement signed: No data found Date of last drug screen: PHQ9: SOPHY-7 Tobacco Counseling: Counseling given: Not Answered Tobacco comments: 1 ppd for 44 years, quit March 2015 Reviewed by Provider: Patient's Medications New Prescriptions LEVOCETIRIZINE (XYZAL) 5 MG TABLET Take 1 (one) tablet (5 mg total) by mouth every evening . SEMAGLUTIDE, WEIGHT LOSS, (WEGOVY) 0.25 MG/0.5 ML PEN Inject 0.5 mL (0.25 mg total) under the skin once a week . Previous Medications ALBUTEROL 90 MCG/ACTUATION INHALER Inhale 2 (two) puffs every 6 (six) hours as needed for wheezing . ASPIRIN 81 MG EC TABLET Take 1 (one) tablet (81 mg total) by mouth daily . CLOBETASOL (TEMOVATE) 0.05 % SCALP SOLUTION FEXOFENADINE (ARIELLA) 180 MG TABLET Take 1 (one) tablet (180 mg total) by mouth . FUROSEMIDE (LASIX) 40 MG TABLET Take 1 (one) tablet (40 mg total) by mouth 2 (two) times a day . IPRATROPIUM-ALBUTEROL (DUO-NEB) 0.5-2.5 MG/3 ML NEBULIZER Take 3 mL by nebulization 3 (three) times a day . MECLIZINE (ANTIVERT) 25 MG TABLET Take 1 (one) tablet (25 mg total) by mouth 3 (three) times a day as needed for nausea . NITROGLYCERIN (NITROSTAT) 0.[address] 1 (one) tablet (0.4 mg total) under the tongue every 5 (five) minutes as needed for chest pain , if no relief after 3 doses call 911 . NONFORMULARY CPAP 9cm H20 ([facility] [place] in [facility] ONDANSETRON (ZOFRAN-ODT) 4 MG DISINTEGRATING TABLET Dissolve 1 (one) tablet (4 mg total) on top of tongue every 6 to 8 hours as needed for nausea . PANTOPRAZOLE (PROTONIX) 40 MG TABLET Take by mouth . POTASSIUM CHLORIDE (MICRO-K) 10 MEQ CR CAPSULE Take 1 (one) capsule (10 mEq total) by mouth daily . SUMATRIPTAN (IMITREX) 50 MG TABLET Take 1 (one) tablet (50 mg total) by mouth every 2 (two) hours as needed for migraine Max of 200 mg in 24hrs, do not treat more than 3 times a week . Modified Medications Modified Medication Previous Medication APIXABAN (ELIQUIS) 5 MG TAB apixaban (Eliquis) 5 mg Tab Take 1 (one) tablet (5 mg total) by mouth 2 (two) times a day . Take 1 (one) tablet (5 mg total) by mouth 2 (two) times a day . BUPROPION (WELLBUTRIN XL) 300 MG 24 HR TABLET buPROPion (WELLBUTRIN XL) 300 MG 24 hr tablet Take 1 (one) tablet (300 mg total) by mouth daily . Take 1 (one) tablet (300 mg total) by mouth daily . DULOXETINE (CYMBALTA) 30 MG CAPSULE DULoxetine (CYMBALTA) 30 MG capsule Take 1 (one) capsule (30 mg total) by mouth daily Total of 90 mg with 60 mg prescription . Take 1 (one) capsule (30 mg total) by mouth daily Total of 90 mg with 60 mg prescription . DULOXETINE (CYMBALTA) 60 MG CAPSULE DULoxetine (CYMBALTA) 60 MG capsule Take 1 (one) capsule (60 mg total) by mouth daily Total 90 mg daily . Take 1 (one) capsule (60 mg total) by mouth daily Total 90 mg daily . FLUTICASONE PROPIONATE (FLONASE) 50 MCG/ACTUATION NASAL SPRAY fluticasone propionate (FLONASE) 50 mcg/actuation nasal spray Instill 1 (one) spray into each nostril daily . Instill 1 (one) spray into each nostril daily . [id number]-LLVZOKZJ (TRELEGY ELLIPTA) 200-62.5-25 MCG DSDV vbbqhtbhspt-gdwiqtfca-nbswklep (Trelegy Ellipta) 200-62.5-25 mcg DsDv Inhale 1 (one) Inhalation. daily . Inhale 1 (one) Inhalation. daily . LEVOTHYROXINE (SYNTHROID, LEVOTHROID) 75 MCG TABLET levothyroxine (SYNTHROID, LEVOTHROID) 75 MCG tablet Take 1 (one) tablet (75 mcg total) by mouth daily . Take 1 (one) tablet (75 mcg total) by mouth daily . MONTELUKAST (SINGULAIR) 10 MG TABLET montelukast (SINGULAIR) 10 mg tablet Take 1 (one) tablet (10 mg total) by mouth daily . Take 1 tablet (10 mg total) by mouth daily. SIMVASTATIN (ZOCOR) 40 MG TABLET simvastatin (ZOCOR) 40 MG tablet Take 1 (one) tablet (40 mg total) by mouth daily . Take 1 (one) tablet (40 mg total) by mouth daily . Discontinued Medications [id number]-ULZNCDTFO-LEJUFDCN (TRELEGY ELLIPTA) 200-62.5-25 MCG DSDV Inhale 1 (one) Inhalation. daily . Health Maintenance Due Topic Date Due Hepatitis C Screening Never done Respiratory Syncytial Virus Immunization: Risk, 60-74 Risk, or 75+ (1 - Risk 60-74 years 1-dose series) Never done Medicare Wellness Visit 05/15/2024 Zoster Vaccines (3 of 3) 09/29/2024 Assessment & Plan Problem List Items Addressed This Visit Respiratory Allergic rhinitis - Primary Relevant Medications fluticasone propionate (FLONASE) 50 mcg/actuation nasal spray levocetirizine (XYZAL) 5 MG tablet lzdvavalbse-ialnkvbmg-giqniysq (Trelegy Ellipta) 200-62.5-25 mcg DsDv montelukast (SINGULAIR) 10 mg tablet Asthma Relevant Medications levocetirizine (XYZAL) 5 MG tablet nzkfmfkyyvu-rguuzupqb-jsykieda (Trelegy Ellipta) 200-62.5-25 mcg DsDv montelukast (SINGULAIR) 10 mg tablet Cardiovascular and Mediastinum PE (pulmonary thromboembolism) (HCC) Relevant Medications apixaban (Eliquis) 5 mg Tab Other Hypercholesterolemia Relevant Medications simvastatin (ZOCOR) 40 MG tablet Other Visit Diagnoses Mild major depression Relevant Medications buPROPion (WELLBUTRIN XL) 300 MG 24 hr tablet DULoxetine (CYMBALTA) 60 MG capsule DULoxetine (CYMBALTA) 30 MG capsule Current moderate episode of major depressive disorder without prior episode (HCC) Relevant Medications buPROPion (WELLBUTRIN XL) 300 MG 24 hr tablet DULoxetine (CYMBALTA) 60 MG capsule DULoxetine (CYMBALTA) 30 MG capsule Hypothyroidism, unspecified type Relevant Medications levothyroxine (SYNTHROID, LEVOTHROID) 75 MCG tablet Hyperlipidemia, unspecified hyperlipidemia type Relevant Medications simvastatin (ZOCOR) 40 MG tablet Morbid obesity with body mass index (BMI) of 40.0 or higher (HCC) Relevant Medications semaglutide, weight loss, (Wegovy) 0.25 mg/0.5 mL Pen Other Relevant Orders TSH with Reflex Free T4 Hemoglobin A1c Lipid Panel Comprehensive Metabolic Panel Assessment & Plan Assessment & Plan 1. Sinusitis. Her sinus symptoms may be attributed to allergic reactions, exacerbated by dry weather conditions or general allergies. Prescriptions for Xyzal and Flonase have been issued, with 5 to 6 refills provided for Flonase. She is advised to switch from Ariella to Claritin, Zyrtec, or Xyzal to manage her symptoms. If these medications prove ineffective, a steroid taper may be considered. 2. Weight management. She is encouraged to maintain a healthy diet, focusing on protein intake, reducing carbohydrates and sweets, and increasing the consumption of fruits and vegetables. She is also advised to limit snacking and avoid drinking calories. A prescription for Wegovy has been issued, starting with the lowest dose for a duration of one month. If the medication is approved, the dosage can be increased after one month. She is also advised to incorporate physical activity into her routine, such as using a stepper while watching television. 3. Hypothyroidism. Her thyroid function was last assessed in April 2024 and was found to be within normal limits. A prescription for levothyroxine 75 mcg has been issued. 4. Medication management. Prescriptions for Eliquis, Wellbutrin, Cymbalta, and Singulair have been renewed. She is advised to continue using meclizine as needed. She is also advised to reduce her Protonix dosage from 40 mg to 20 mg and to take it only as needed. If the lower dose is effective, future refills will be provided at this dosage. 5. Pulmonary embolism. She is advised to continue her current regimen of Eliquis. A prescription for 200 tablets for 90 days has been issued to ensure she does not run out of medication. 6. Depression and anxiety. She is advised to continue her current regimen of Wellbutrin and Cymbalta. A prescription for a year's supply has been issued. 7. Asthma. She is advised to continue using the Trelegy inhaler as prescribed. No new refills are needed at this time. Follow-up The patient is scheduled for a follow-up visit in 6 months, or earlier if necessary. Return in about 6 months (around 05/22/2025) for MWV. My ongoing relationship with Lola Drew requires continued responsibility and cognitive effort of being the focal point for all services related to chronic condition(s). After discussing the use of ambient listening and audio recording in generating medical documentation, the patient verbally consented to use of this technology for today's visit. SARA ALVAREZ MD [facility] [address] [facility] [id number] Dept: [phone] 04/12/2024 1:43 PM Depression Screening Little interest or pleasure in doing things 2 Feeling down, depressed, or hopeless 2 PHQ-2 Total Score 4 Trouble falling or staying asleep, or sleeping too much 3 Feeling tired or having little energy 3 Poor appetite or overeating 3 Feeling bad about yourself - or that you are a failure or have let yourself or your family down 3 Trouble concentrating on things, such as reading the newspaper or watching television 3 Moving or speaking so slowly that other people could have noticed. Or the opposite - being so fidgety or restless that you have been moving around a lot more than usual 2 Thoughts that you would be better off , or of hurting yourself in some way 0 PHQ-9 Total Score 21 If you checked off any problems, how difficult have these problems made it for you to do your work, take care of things at home, or get along with other people? Somewhat difficult documented in this encounter [facility] 11-22-2024 History of Present illness Narrative Subjective Patient ID: Lola Drew is a 74 y.o. female here for Chief Complaint Patient presents with Follow-up 3 month f/u-sinus issues After discussing the use of ambient listening and audio recording in generating medical documentation, the patient verbally consented to use of this technology for today's visit. History of Present Illness Cough: 11/22 She reports experiencing her usual sinus symptoms and cough, which are exacerbated by dry weather or allergies. She has been exposed to various illnesses within her household, including RSV, bronchitis, ear infections, influenza, and strep throat, but she has been trying to stay away from it. Despite these symptoms, she is able to perform her daily activities. She finds relief with Flonase, administered as one spray in each nostril twice daily, but currently has no refills. She also takes Ariella and Singulair daily for her breathing. Obesity: She expresses interest in weight loss patches and admits to a strong preference for food, particularly diet Pepsi. Hypothyroidism: She has been on a consistent regimen of levothyroxine 75 mcg for approximately 1 to 2 years. She has not required meclizine for vertigo or headaches and has not experienced any headaches since her last visit. She has been on Protonix for an extended period due to occasional abdominal pain, described as a swelling sensation that becomes lodged in her ribs. However, she continues to experience this discomfort even while on Protonix. PE: She is on Eliquis for pulmonary embolism and requires a refill. Depression: She is on Wellbutrin and Cymbalta 90 mg for depression and anxiety. Asthma: She is on Trelegy inhaler for asthma and has refills for that. Allergies: She is on Singulair for her breathing and has been on it for many years. MEDICATIONS Current: Flonase, Ariella, Singulair, Eliquis, Wellbutrin, Cymbalta, Trelegy, levothyroxine, Protonix, Imitrex, meclizine Past Medical History: Diagnosis Date Asthma Bronchitis Colitis COPD (chronic obstructive pulmonary disease) (HCC) Deep vein thrombosis (HCC) Depression GERD (gastroesophageal reflux disease) Hypercholesterolemia Insomnia Obstructive sleep apnea Osteopenia Pulmonary embolism (HCC) Vitamin D deficiency Past Surgical History: Procedure Laterality Date APPENDECTOMY CT COLONOSCOPY 05/18/2019 CT COLONOSCOPY FINGER SURGERY Bilateral 11/03/2009 thumb FOOT SURGERY HYSTERECTOMY (CERVIX REMAINS) NASAL SEPTUM SURGERY 1989 possibly TONSILLECTOMY AND ADENOIDECTOMY Family History Problem Relation Age of Onset Other (unknown cancer) Mother Heart attack Father age 54 Asthma Father Unknown Sister Social History Tobacco Use Smoking status: Former Current packs/day: 0.00 Average packs/day: 1 pack/day for 44.0 years (44.0 ttl pk-yrs) Types: Cigarettes Start date: 03/03/1971 Quit date: 03/03/2015 Years since quittin.8 Tobacco comments: 1 ppd for 44 years, quit March 2015 Vaping Use Vaping status: Every Day Substances: Nicotine, Flavoring Devices: Disposable Substance Use Topics Alcohol use: Not Currently Comment: 1 drink per year Drug use: No Review of Systems Vitals: 11/22/24 1337 BP: 131/73 BP Location: Right arm Patient Position: Sitting BP Cuff Size: X-large Adult Pulse: (!) 59 Resp: 16 Temp: 98.2 F (36.8 C) TempSrc: Temporal SpO2: 94% Weight: 107 kg (236 lb) Height: 5' 4 Estimated body mass index is 40.51 kg/m as calculated from the following: Height as of this encounter: 5' 4. Weight as of this encounter: 107 kg (236 lb). Physical Exam Constitutional: General: She is not in acute distress. Appearance: She is not ill-appearing. HENT: Head: Normocephalic and atraumatic. Nose: Nose normal. Mouth/Throat: Mouth: Mucous membranes are moist. Pharynx: Oropharynx is clear. No oropharyngeal exudate or posterior oropharyngeal erythema. Eyes: Extraocular Movements: Extraocular movements intact. Conjunctiva/sclera: Conjunctivae normal. Pupils: Pupils are equal, round, and reactive to light. Cardiovascular: Rate and Rhythm: Normal rate and regular rhythm. Pulses: Normal pulses. Heart sounds: Normal heart sounds. No murmur heard. No gallop. Pulmonary: Effort: Pulmonary effort is normal. Breath sounds: No wheezing, rhonchi or rales. Chest: Chest wall: No tenderness. Abdominal: General: Abdomen is flat. Bowel sounds are normal. There is no distension. Palpations: Abdomen is soft. There is no mass. Tenderness: There is no abdominal tenderness. There is no right CVA tenderness, left CVA tenderness, guarding or rebound. Musculoskeletal: General: No tenderness. Normal range of motion. Cervical back: Normal range of motion and neck supple. No rigidity. No muscular tenderness. Right lower leg: No edema. Left lower leg: No edema. Lymphadenopathy: Cervical: No cervical adenopathy. Skin: General: Skin is warm. Findings: No erythema or rash. Neurological: General: No focal deficit present. Mental Status: She is alert and oriented to person, place, and time. Sensory: No sensory deficit. Motor: No weakness. Gait: Gait normal. Psychiatric: Mood and Affect: Mood normal. Behavior: Behavior normal. Thought Content: Thought content normal. Judgment: Judgment normal. OARRS/NARxCHECK Report Received and Assessed: Date controlled substance agreement signed: No data found Date of last drug screen: PHQ9: SOPHY-7 Tobacco Counseling: Counseling given: Not Answered Tobacco comments: 1 ppd for 44 years, quit March 2015 Reviewed by Provider: Tobacco Allergies Meds Problems Med Hx Surg Hx Fam Hx Patient's Medications New Prescriptions LEVOCETIRIZINE (XYZAL) 5 MG TABLET Take 1 (one) tablet (5 mg total) by mouth every evening . SEMAGLUTIDE, WEIGHT LOSS, (WEGOVY) 0.25 MG/0.5 ML PEN Inject 0.5 mL (0.25 mg total) under the skin once a week . Previous Medications ALBUTEROL 90 MCG/ACTUATION INHALER Inhale 2 (two) puffs every 6 (six) hours as needed for wheezing . ASPIRIN 81 MG EC TABLET Take 1 (one) tablet (81 mg total) by mouth daily . CLOBETASOL (TEMOVATE) 0.05 % SCALP SOLUTION FEXOFENADINE (ARIELLA) 180 MG TABLET Take 1 (one) tablet (180 mg total) by mouth . FUROSEMIDE (LASIX) 40 MG TABLET Take 1 (one) tablet (40 mg total) by mouth 2 (two) times a day . IPRATROPIUM-ALBUTEROL (DUO-NEB) 0.5-2.5 MG/3 ML NEBULIZER Take 3 mL by nebulization 3 (three) times a day . MECLIZINE (ANTIVERT) 25 MG TABLET Take 1 (one) tablet (25 mg total) by mouth 3 (three) times a day as needed for nausea . NITROGLYCERIN (NITROSTAT) 0.[address] 1 (one) tablet (0.4 mg total) under the tongue every 5 (five) minutes as needed for chest pain , if no relief after 3 doses call 911 . NONFORMULARY CPAP 9cm H20 ([facility] [place] in [facility] ONDANSETRON (ZOFRAN-ODT) 4 MG DISINTEGRATING TABLET Dissolve 1 (one) tablet (4 mg total) on top of tongue every 6 to 8 hours as needed for nausea . PANTOPRAZOLE (PROTONIX) 40 MG TABLET Take by mouth . POTASSIUM CHLORIDE (MICRO-K) 10 MEQ CR CAPSULE Take 1 (one) capsule (10 mEq total) by mouth daily . SUMATRIPTAN (IMITREX) 50 MG TABLET Take 1 (one) tablet (50 mg total) by mouth every 2 (two) hours as needed for migraine Max of 200 mg in 24hrs, do not treat more than 3 times a week . Modified Medications Modified Medication Previous Medication APIXABAN (ELIQUIS) 5 MG TAB apixaban (Eliquis) 5 mg Tab Take 1 (one) tablet (5 mg total) by mouth 2 (two) times a day . Take 1 (one) tablet (5 mg total) by mouth 2 (two) times a day . BUPROPION (WELLBUTRIN XL) 300 MG 24 HR TABLET buPROPion (WELLBUTRIN XL) 300 MG 24 hr tablet Take 1 (one) tablet (300 mg total) by mouth daily . Take 1 (one) tablet (300 mg total) by mouth daily . DULOXETINE (CYMBALTA) 30 MG CAPSULE DULoxetine (CYMBALTA) 30 MG capsule Take 1 (one) capsule (30 mg total) by mouth daily Total of 90 mg with 60 mg prescription . Take 1 (one) capsule (30 mg total) by mouth daily Total of 90 mg with 60 mg prescription . DULOXETINE (CYMBALTA) 60 MG CAPSULE DULoxetine (CYMBALTA) 60 MG capsule Take 1 (one) capsule (60 mg total) by mouth daily Total 90 mg daily . Take 1 (one) capsule (60 mg total) by mouth daily Total 90 mg daily . FLUTICASONE PROPIONATE (FLONASE) 50 MCG/ACTUATION NASAL SPRAY fluticasone propionate (FLONASE) 50 mcg/actuation nasal spray Instill 1 (one) spray into each nostril daily . Instill 1 (one) spray into each nostril daily . AXGYBKMJDUW-JVPNOVNBJ-MXKWYJPG (TRELEGY ELLIPTA) 200-62.5-25 MCG DSDV ccjlctmqpnu-grldbthca-bqnvmmln (Trelegy Ellipta) 200-62.5-25 mcg DsDv Inhale 1 (one) Inhalation. daily . Inhale 1 (one) Inhalation. daily . LEVOTHYROXINE (SYNTHROID, LEVOTHROID) 75 MCG TABLET levothyroxine (SYNTHROID, LEVOTHROID) 75 MCG tablet Take 1 (one) tablet (75 mcg total) by mouth daily . Take 1 (one) tablet (75 mcg total) by mouth daily . MONTELUKAST (SINGULAIR) 10 MG TABLET montelukast (SINGULAIR) 10 mg tablet Take 1 (one) tablet (10 mg total) by mouth daily . Take 1 tablet (10 mg total) by mouth daily. SIMVASTATIN (ZOCOR) 40 MG TABLET simvastatin (ZOCOR) 40 MG tablet Take 1 (one) tablet (40 mg total) by mouth daily . Take 1 (one) tablet (40 mg total) by mouth daily . Discontinued Medications RIHDRTBOQZC-ORFFCKHIK-VNSGNBWS (TRELEGY ELLIPTA) 200-62.5-25 MCG DSDV Inhale 1 (one) Inhalation. daily . Health Maintenance Due Topic Date Due Hepatitis C Screening Never done Respiratory Syncytial Virus Immunization: Risk, 60-74 Risk, or 75+ (1 - Risk 60-74 years 1-dose series) Never done Medicare Wellness Visit 05/15/2024 Zoster Vaccines (3 of 3) 09/29/2024 Assessment & Plan Problem List Items Addressed This Visit Respiratory Allergic rhinitis - Primary Relevant Medications fluticasone propionate (FLONASE) 50 mcg/actuation nasal spray levocetirizine (XYZAL) 5 MG tablet sfcqfkbkhdc-usowzzhuc-fwmenier (Trelegy Ellipta) 200-62.5-25 mcg DsDv montelukast (SINGULAIR) 10 mg tablet Asthma Relevant Medications levocetirizine (XYZAL) 5 MG tablet phzeqacjzir-fmhkzkrem-hjcnqyve (Trelegy Ellipta) 200-62.5-25 mcg DsDv montelukast (SINGULAIR) 10 mg tablet JOHNATHAN on CPAP History of JOHNATHAN confirmed with sleep study , need new CPAP supplies this year Relevant Medications levocetirizine (XYZAL) 5 MG tablet fpndsxiqqin-lhrixkeen-vrvxuzwo (Trelegy Ellipta) 200-62.5-25 mcg DsDv montelukast (SINGULAIR) 10 mg tablet Cardiovascular and Mediastinum PE (pulmonary thromboembolism) (HCC) Relevant Medications apixaban (Eliquis) 5 mg Tab Other Hypercholesterolemia Relevant Medications simvastatin (ZOCOR) 40 MG tablet Other Visit Diagnoses Mild major depression Relevant Medications buPROPion (WELLBUTRIN XL) 300 MG 24 hr tablet DULoxetine (CYMBALTA) 60 MG capsule DULoxetine (CYMBALTA) 30 MG capsule Current moderate episode of major depressive disorder without prior episode (HCC) Relevant Medications buPROPion (WELLBUTRIN XL) 300 MG 24 hr tablet DULoxetine (CYMBALTA) 60 MG capsule DULoxetine (CYMBALTA) 30 MG capsule Hypothyroidism, unspecified type Relevant Medications levothyroxine (SYNTHROID, LEVOTHROID) 75 MCG tablet Hyperlipidemia, unspecified hyperlipidemia type Relevant Medications simvastatin (ZOCOR) 40 MG tablet Morbid obesity with body mass index (BMI) of 40.0 or higher (HCC) Relevant Medications semaglutide, weight loss, (Wegovy) 0.25 mg/0.5 mL Pen Other Relevant Orders TSH with Reflex Free T4 Hemoglobin A1c Lipid Panel Comprehensive Metabolic Panel Assessment & Plan Assessment & Plan 1. Sinusitis. Her sinus symptoms may be attributed to allergic reactions, exacerbated by dry weather conditions or general allergies. Prescriptions for Xyzal and Flonase have been issued, with 5 to 6 refills provided for Flonase. She is advised to switch from Ariella to Claritin, Zyrtec, or Xyzal to manage her symptoms. If these medications prove ineffective, a steroid taper may be considered. 2. Weight management. She is encouraged to maintain a healthy diet, focusing on protein intake, reducing carbohydrates and sweets, and increasing the consumption of fruits and vegetables. She is also advised to limit snacking and avoid drinking calories. A prescription for Wegovy has been issued, starting with the lowest dose for a duration of one month. If the medication is approved, the dosage can be increased after one month. She is also advised to incorporate physical activity into her routine, such as using a stepper while watching television. 3. Hypothyroidism. Her thyroid function was last assessed in April 2024 and was found to be within normal limits. A prescription for levothyroxine 75 mcg has been issued. 4. Medication management. Prescriptions for Eliquis, Wellbutrin, Cymbalta, and Singulair have been renewed. She is advised to continue using meclizine as needed. She is also advised to reduce her Protonix dosage from 40 mg to 20 mg and to take it only as needed. If the lower dose is effective, future refills will be provided at this dosage. 5. Pulmonary embolism. She is advised to continue her current regimen of Eliquis. A prescription for 200 tablets for 90 days has been issued to ensure she does not run out of medication. 6. Depression and anxiety. She is advised to continue her current regimen of Wellbutrin and Cymbalta. A prescription for a year's supply has been issued. 7. Asthma. She is advised to continue using the Trelegy inhaler as prescribed. No new refills are needed at this time. Follow-up The patient is scheduled for a follow-up visit in 6 months, or earlier if necessary. Return in about 6 months (around 05/22/2025) for MWV. My ongoing relationship with Lola Drew requires continued responsibility and cognitive effort of being the focal point for all services related to chronic condition(s). After discussing the use of ambient listening and audio recording in generating medical documentation, the patient verbally consented to use of this technology for today's visit. SARA ALVAREZ MD [facility] [address] [facility] [id number] Dept: [phone] 04/12/2024 1:43 PM Depression Screening Little interest or pleasure in doing things 2 Feeling down, depressed, or hopeless 2 PHQ-2 Total Score 4 Trouble falling or staying asleep, or sleeping too much 3 Feeling tired or having little energy 3 Poor appetite or overeating 3 Feeling bad about yourself - or that you are a failure or have let yourself or your family down 3 Trouble concentrating on things, such as reading the newspaper or watching television 3 Moving or speaking so slowly that other people could have noticed. Or the opposite - being so fidgety or restless that you have been moving around a lot more than usual 2 Thoughts that you would be better off , or of hurting yourself in some way 0 PHQ-9 Total Score 21 If you checked off any problems, how difficult have these problems made it for you to do your work, take care of things at home, or get along with other people? Somewhat difficult documented in this encounter [facility] 11-17-2024 History of Present illness Narrative Hematology/Oncology Clinic Follow Up Note Patient ID: Lola Drew is a 74 y.o. female Reason for Consult: Pulmonary Embolism, RLL DVT Date: 08/30/24 Referring Physician: Sara Alvarez MD PCP: Sara Alvarez MD Hematology/Oncology: Krys Butcher MD Interval History: 11/17/24 Lola Drew returns in follow up of her pulmonary embolism. She was seen in consult on 08/30/24. She was referred by Dr. Alvarez for recommendations regarding recent diagnosis of bilateral pulmonary embolism and RLL DVT. She is currently on Eliquis and denies any abnormal bleeding issues. Her Prothrombin gene mutation and factor V leiden were both negative. She was hospitalized in October for angina. CCTA completed during that admission. There was no gross evidence of pulmonary emboli. Multiple small pulmonary nodules of the lower lobes measuring up to 4 mm. She had her right doppler ultrasound on 09/15/24 with Age Indeterminate deep vein thrombosis in the mid peroneal veins of the right lower extremity.No progression/extension of deep vein thrombosis from peroneal veins relative to prior study. History of Present Illness: Lola Drew is a 74 y.o. female with a history of pulmonary embolism, vitamin D deficiency, osteopenia, sleep apnea, hypercholesterolemia, GERD, depression, COPD, colitis, bronchitis, and asthma.She was referred by Dr. Alvarez for recommendations regarding recent diagnosis of bilateral pulmonary embolism and RLL DVT. Patient presented to the ED on 07/24/24 with worsening shortness of breath cough, and chest heaviness over the previous 2 weeks. She had been placed on antibiotics without much improvement. CT for PE demonstrated evidence of a large bilateral pulmonary embolisms with right heart strain. Patient was given heparin bolus and infusion. Patient admitted to [facility] ICU for further evaluation of pulmonary embolisms with right heart strain and elevated troponin. The echocardiogram was performed which showed hyperdynamic left ventricle with ejection fraction greater than 65 to 70%, and moderately severe pulmonary hypertension, PA and RV systolic pressure around 69 mm. She was also found to have acute DVT in mid peroneal veins (one of the paired) of the right lower extremity. She was discharged on Eliquis. She denies any recent surgery or travel prior to her VTE. No previous history of VTE, no family history of clotting disorder. She was again seen in the ED on 07/30/24 for bronchitis ang given steroids and doxycycline. Shortness of breath on exertion, fatigue, edema of left lower extremity. Past Medical and Surgical History Past Medical History: Diagnosis Date Asthma Bronchitis Colitis COPD (chronic obstructive pulmonary disease) (HCC) Deep vein thrombosis (HCC) Depression GERD (gastroesophageal reflux disease) Hypercholesterolemia Insomnia Obstructive sleep apnea Osteopenia Pulmonary embolism (HCC) Vitamin D deficiency Past Surgical History: Procedure Laterality Date APPENDECTOMY CT COLONOSCOPY 05/18/2019 CT COLONOSCOPY FINGER SURGERY Bilateral 11/03/2009 thumb FOOT SURGERY HYSTERECTOMY (CERVIX REMAINS) NASAL SEPTUM SURGERY 1989 possibly TONSILLECTOMY AND ADENOIDECTOMY Allergies and Medications Allergies Allergen Reactions Amoxicillin Bee Venom Protein (Honey Bee) Swelling Sulfa (Sulfonamide Antibiotics) Penicillins Rash Current Outpatient Medications Medication Sig Dispense Refill albuterol 90 mcg/actuation inhaler Inhale 2 (two) puffs every 6 (six) hours as needed for wheezing . apixaban (Eliquis) 5 mg Tab Take 1 (one) tablet (5 mg total) by mouth 2 (two) times a day . 180 tablet 0 aspirin 81 MG EC tablet Take 1 (one) tablet (81 mg total) by mouth daily Start: 10/21/24. 30 tablet 0 buPROPion (WELLBUTRIN XL) 300 MG 24 hr tablet Take 1 (one) tablet (300 mg total) by mouth daily . 90 tablet 1 clobetasoL (TEMOVATE) 0.05 % scalp solution DULoxetine (CYMBALTA) 30 MG capsule Take 1 (one) capsule (30 mg total) by mouth daily Total of 90 mg with 60 mg prescription . 30 capsule 11 DULoxetine (CYMBALTA) 60 MG capsule Take 1 (one) capsule (60 mg total) by mouth daily Total 90 mg daily . 90 capsule 1 fexofenadine (ARIELLA) 180 MG tablet Take 1 (one) tablet (180 mg total) by mouth . fluticasone propionate (FLONASE) 50 mcg/actuation nasal spray Instill 1 (one) spray into each nostril daily . 16 g 1 tcurnblygqv-hshkrxylj-yfbelght (Trelegy Ellipta) 200-62.5-25 mcg DsDv Inhale 1 (one) Inhalation. daily . 28 each 3 ygunfohbycp-pjmfwuupa-iyewudnc (Trelegy Ellipta) 200-62.5-25 mcg DsDv Inhale 1 (one) Inhalation. daily . 28 each 3 furosemide (LASIX) 40 MG tablet Take 1 (one) tablet (40 mg total) by mouth 2 (two) times a day . ipratropium-albuteroL (DUO-NEB) 0.5-2.5 mg/3 ml nebulizer Take 3 mL by nebulization 3 (three) times a day . 270 mL 2 levothyroxine (SYNTHROID, LEVOTHROID) 75 MCG tablet Take 1 (one) tablet (75 mcg total) by mouth daily . meclizine (ANTIVERT) 25 mg tablet Take 1 (one) tablet (25 mg total) by mouth 3 (three) times a day as needed for nausea . 30 tablet 0 montelukast (SINGULAIR) 10 mg tablet Take 1 tablet (10 mg total) by mouth daily. 90 tablet 4 nitroGLYCERIN (NITROSTAT) 0.[address] 1 (one) tablet (0.4 mg total) under the tongue every 5 (five) minutes as needed for chest pain , if no relief after 3 doses call 911 . 100 tablet 0 NONFORMULARY CPAP 9cm H20 (DASKY) in [facility] ondansetron (ZOFRAN-ODT) 4 MG disintegrating tablet Dissolve 1 (one) tablet (4 mg total) on top of tongue every 6 to 8 hours as needed for nausea . 20 tablet 0 pantoprazole (PROTONIX) 40 MG tablet Take by mouth . potassium chloride (MICRO-K) 10 MEQ CR capsule Take 1 (one) capsule (10 mEq total) by mouth daily . 90 capsule 1 simvastatin (ZOCOR) 40 MG tablet Take 1 (one) tablet (40 mg total) by mouth daily . 90 tablet 1 SUMAtriptan (IMITREX) 50 MG tablet Take 1 (one) tablet (50 mg total) by mouth every 2 (two) hours as needed for migraine Max of 200 mg in 24hrs, do not treat more than 3 times a week . 10 tablet 0 No current facility-administered medications for this visit. Family History Problem Relation Age of Onset Other (unknown cancer) Mother Heart attack Father age 54 Asthma Father Unknown Sister Social History Socioeconomic History Marital status: Occupational History Employer: [employer] Tobacco Use Smoking status: Former Current packs/day: 0.00 Average packs/day: 1 pack/day for 44.0 years (44.0 ttl pk-yrs) Types: Cigarettes Start date: 03/03/1971 Quit date: 03/03/2015 Years since quittin.7 Tobacco comments: 1 ppd for 44 years, quit March 2015 Vaping Use Vaping status: Every Day Substances: Nicotine, Flavoring Devices: Disposable Substance and Sexual Activity Alcohol use: Not Currently Comment: 1 drink per year Drug use: No Sexual activity: Not Currently Social Drivers of Health Food Insecurity: No Food Insecurity (10/19/2024) Hunger Vital Sign Worried About Running Out of Food in the Last Year: Never true Ran Out of Food in the Last Year: Never true Transportation Needs: No Transportation Needs (10/19/2024) PRAPARE - Transportation Lack of Transportation (Medical): No Lack of Transportation (Non-Medical): No Housing Stability: Low Risk (10/19/2024) Housing Stability Vital Sign Unable to Pay for Housing in the Last Year: No Number of Times Moved in the Last Year: 0 Homeless in the Last Year: No Review of Systems Review of Systems:A complete review of systems was performed and is negative except for what is listed in the HPI. Physical Exam ECOG 1-2 PACU Vitals 11/17/24 1031 BP: 124/75 Pulse: (!) 58 Temp: 97.6 F (36.4 C) SpO2: 95% General Appearance: Alert, well developed, and in no acute distress. HEENT: Head - Normocephalic, atraumatic. No temporal wasting . Eyes - CLEMENTINE bilaterally and EOMI, anicteric sclerae. Ears - normal external appearance, hearing intact. Nose - normal, no erythema. Throat - mucous membranes moist, pharynx without lesions. Neck: Supple, trachea midline. Cardiovascular: S1, S2 normal. No murmurs, rubs, clicks or gallops appreciated. Mild pedal edema. Respiratory: Lungs clear to auscultation, no wheezes, rales or rhonchi heard. Lymphatics: no new adenopathy in cervical, supraclavicular, axillary, inguinal regions Abdomen: Soft, non-tender, normal bowel sounds, non-distended, no hepatosplenomegaly Neurological: Grossly normal motor and sensory exam. No focal deficits. Musculoskeletal: No joint tenderness, deformity. Skin: Normal coloration and turgor. No rashes. Psych: Alert, oriented x 3. Normal mood and affect. Labs: Lab Results Component Value Date WBC 5.34 10/20/2024 HGB 13.7 10/20/2024 HCT 41.0 10/20/2024 PLT 188 10/20/2024 08/30/2024 Prothrombin gene mutation and factor V leiden were both negative. Radiology: CCTA 10/20/24 1.Suboptimal opacification of the pulmonary arteries. Grossly, no central or large pulmonary emboli. 2.Multiple small pulmonary nodules of the lower lobes measuring up to 4 mm. Similar findings seen on 07/29/2024 CT low-dose lung screening. Recommend continued annual low dose lung screening examination. 3.Mild mucosal debris scattered throughout the bronchi. 4.Hepatic steatosis. 5.Small hiatal hernia Doppler ultrasound RLL 09/15/24 1. Age Indeterminate deep vein thrombosis in the mid peroneal veins of the right lower extremity. 2. No progression/extension of deep vein thrombosis from peroneal veins relative to prior study. 3. Remainder of the veins are within normal limi CT lung cancer screening 07/29/24 1.Mild peribronchial thickening consistent with acute and/or chronic bronchitis. 2.Noncalcified nodules ranging from 1.9 mm to 3.6 mm. There are no pathologically enlarged lymph nodes. 3.Additional findings as described in the body of the report. Lung rads score 2. A low-dose CT lung screening examination in 12 months is recommended. Bilateral doppler ultrasounds 07/26/24 Right: Acute deep vein thrombosis in the mid peroneal veins (one of the paired) of the right lower extremity. All other vein visualized in the right lower extremity are within normal limits. Left: No evidence of deep vein thrombosis in the left lower extremity CT pulmonary arteries 07/24/24 1.Extensive bilateral pulmonary emboli with suggestion of at least mild right heart strain. 2.Heterogeneous lungs suggesting air trapping versus ground-glass infiltrates or progressive heterogeneous fibrotic lung disease. The upper lobe shows some peripheral areas of air-trapping versus emphysema. 3.Cholelithiasis. Assessment and Recommendations Assessment/recommendation: Lola Drew is a 74 y.o. female with a history of pulmonary embolism, vitamin D deficiency, osteopenia, sleep apnea, hypercholesterolemia, GERD, depression, COPD, colitis, bronchitis, and asthma.She was referred by Dr. Alvarez for recommendations regarding recent diagnosis of bilateral pulmonary embolism and right lower extremity deep vein thrombosis. Bilateral pulmonary embolism and right lower extremity deep vein thrombosis. -Patient presented to the ED on 07/24/24 with worsening shortness of breath cough, and chest heaviness over the previous [address] for PE demonstrated evidence of a large bilateral pulmonary embolisms with right heart strain. She was also found to have acute DVT in mid peroneal veins (one of the paired) of the right lower extremity. She was discharged on Eliquis. -She denies any recent surgery or travel prior to her VTE. No previous history of VTE, no family history of clotting disorder. 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 She is fairly sedentary given her COPD. Given this, I would recommend 3-6 months of anticoagulation - 08/30/2024 Prothrombin gene mutation and factor V leiden were both negative. - Doppler ultrasound 09/15/24 with age Indeterminate deep vein thrombosis in the mid peroneal veins of the right lower extremity and no progression/extension of deep vein thrombosis from peroneal veins relative to prior study. - 11/17/24 Will repeat doppler ultrasound in 3 months and continue Eliquis. Pulmonary nodules/ Nicotine dependence: Per history. 44 pack year history of smoking, quit 4 years ago. Nodules noted on CT lung cancer screening 07/29/24. Repeat in one year. Ordered by Pulmonology. COPD: per history. She follows with [facility] Pulmonology. Follow up as scheduled. Routine cancer screenings: Colonoscopy in 2019. Cologuard testing negative 08/16/24. Repeat in 3 years. Mammogram: 08/04/2024 Education Provided Education/Instructions given to: (x) Patient (_) Spouse (_) Parent (_) Other Barriers to Learning: (x) None (_) Yes (identify):_ Content: (x) Refer to note above (_)Other (identify):_ Evaluation/Outcome: (x) Verbalized understanding (_) Demonstrated understanding (_) Other:_ Advanced Directives: Full Code ARTHUR Boothe documented in this encounter [facility] 11-17-2024 Note Hematology/Oncology Clinic Follow Up Note Patient ID: Lola Drew is a 74 y.o. female Reason for Consult: Pulmonary Embolism, RLL DVT Date: 08/30/24 Referring Physician: Sara Alvarez MD PCP: Sara Alvarez MD Hematology/Oncology: Krys Butcher MD Interval History: 11/17/24 Lola Drew returns in follow up of her pulmonary embolism. She was seen in consult on 08/30/24. She was referred by Dr. Alvarez for recommendations regarding recent diagnosis of bilateral pulmonary embolism and RLL DVT. She is currently on Eliquis and denies any abnormal bleeding issues. Her Prothrombin gene mutation and factor V leiden were both negative. She was hospitalized in October for angina. CCTA completed during that admission. There was no gross evidence of pulmonary emboli. Multiple small pulmonary nodules of the lower lobes measuring up to 4 mm. She had her right doppler ultrasound on 09/15/24 with Age Indeterminate deep vein thrombosis in the mid peroneal veins of the right lower extremity.No progression/extension of deep vein thrombosis from peroneal veins relative to prior study. History of Present Illness: Lola Drew is a 74 y.o. female with a history of pulmonary embolism, vitamin D deficiency, osteopenia, sleep apnea, hypercholesterolemia, GERD, depression, COPD, colitis, bronchitis, and asthma.She was referred by Dr. Alvarez for recommendations regarding recent diagnosis of bilateral pulmonary embolism and RLL DVT. Patient presented to the ED on 07/24/24 with worsening shortness of breath cough, and chest heaviness over the previous 2 weeks. She had been placed on antibiotics without much improvement. CT for PE demonstrated evidence of a large bilateral pulmonary embolisms with right heart strain. Patient was given heparin bolus and infusion. Patient admitted to [place] ICU for further evaluation of pulmonary embolisms with right heart strain and elevated troponin. The echocardiogram was performed which showed hyperdynamic left ventricle with ejection fraction greater than 65 to 70%, and moderately severe pulmonary hypertension, PA and RV systolic pressure around 69 mm. She was also found to have acute DVT in mid peroneal veins (one of the paired) of the right lower extremity. She was discharged on Eliquis. She denies any recent surgery or travel prior to her VTE. No previous history of VTE, no family history of clotting disorder. She was again seen in the ED on 07/30/24 for bronchitis ang given steroids and doxycycline. Shortness of breath on exertion, fatigue, edema of left lower extremity. Past Medical and Surgical History Past Medical History: Diagnosis Date Asthma Bronchitis Colitis COPD (chronic obstructive pulmonary disease) (HCC) Deep vein thrombosis (HCC) Depression GERD (gastroesophageal reflux disease) Hypercholesterolemia Insomnia Obstructive sleep apnea Osteopenia Pulmonary embolism (HCC) Vitamin D deficiency Past Surgical History: Procedure Laterality Date APPENDECTOMY CT COLONOSCOPY 05/18/2019 CT COLONOSCOPY FINGER SURGERY Bilateral 11/03/2009 thumb FOOT SURGERY HYSTERECTOMY (CERVIX REMAINS) NASAL SEPTUM SURGERY 1989 possibly TONSILLECTOMY AND ADENOIDECTOMY Allergies and Medications Allergies Allergen Reactions Amoxicillin Bee Venom Protein (Honey Bee) Swelling Sulfa (Sulfonamide Antibiotics) Penicillins Rash Current Outpatient Medications Medication Sig Dispense Refill albuterol 90 mcg/actuation inhaler Inhale 2 (two) puffs every 6 (six) hours as needed for wheezing . apixaban (Eliquis) 5 mg Tab Take 1 (one) tablet (5 mg total) by mouth 2 (two) times a day . 180 tablet 0 aspirin 81 MG EC tablet Take 1 (one) tablet (81 mg total) by mouth daily Start: 10/21/24. 30 tablet 0 buPROPion (WELLBUTRIN XL) 300 MG 24 hr tablet Take 1 (one) tablet (300 mg total) by mouth daily . 90 tablet 1 clobetasoL (TEMOVATE) 0.05 % scalp solution DULoxetine (CYMBALTA) 30 MG capsule Take 1 (one) capsule (30 mg total) by mouth daily Total of 90 mg with 60 mg prescription . 30 capsule 11 DULoxetine (CYMBALTA) 60 MG capsule Take 1 (one) capsule (60 mg total) by mouth daily Total 90 mg daily . 90 capsule 1 fexofenadine (ARIELLA) 180 MG tablet Take 1 (one) tablet (180 mg total) by mouth . fluticasone propionate (FLONASE) 50 mcg/actuation nasal spray Instill 1 (one) spray into each nostril daily . 16 g 1 gduuenwmwxt-ibpaqhmbc-fxjfsnfs (Trelegy Ellipta) 200-62.5-25 mcg DsDv Inhale 1 (one) Inhalation. daily . 28 each 3 pxntuewhair-vkekzihgg-ewcpmkzy (Trelegy Ellipta) 200-62.5-25 mcg DsDv Inhale 1 (one) Inhalation. daily . 28 each 3 furosemide (LASIX) 40 MG tablet Take 1 (one) tablet (40 mg total) by mouth 2 (two) times a day . ipratropium-albuteroL (DUO-NEB) 0.5-2.5 mg/3 ml nebulizer Take 3 mL by nebulization 3 (three) times a day . 270 mL 2 levothyroxine (SYNTHROID, LEVOTHROID) 75 MCG tablet (more content not included)... [facility] Ambulatory 11-16-2024 Instructions Rogelio Panda CNP - 11/16/2024 10:02 AM EST Continue Eliquis Repeat Doppler ultrasound in 3 months (February, Follow up in 3 months for results documented in this encounter [facility] 10-28-2024 Note Subjective Patient I D: Lola Drew is a 74 y.o. female here for Chief Complaint Patient presents with URI Symptoms x's 1 week Fall Risk Screening After discussing the use of ambient listening and audio recording in generating medical documentation, the patient verbally consented to use of this technology for today's visit. History of Present Illness Cough: She has been experiencing symptoms for the past week, including a headache, drainage, and a severe cough that occurs in spasms. The cough is associated with significant pain, which she does not attribute to a pulled muscle. She also reports back pain and wheezing. She is not aware of any fever, although she did have a temperature this morning. She reports no postnasal drainage but mentions choking on it. Her cough is both productive and dry. She has not undergone any COVID-19 or influenza testing at home. She also reports urinary incontinence during coughing episodes. She has a history of hives with penicillin but is open to trying it again. She has received the RSV vaccine. She has been self-medicating with Aleve, Ariella, and Tylenol. She was hospitalized last week for an eye procedure, during which she experienced chest pressure and jaw pain. She was informed that her x-rays were normal, but she has noticed increased mucus production in her lungs. ALLERGIES The patient has had an allergic reaction to PENICILLIN, resulting in hives. MEDICATIONS Current: Aleve, Ariella, Tylenol IMMUNIZATIONS She has received the RSV vaccine. Past Medical History: Diagnosis Date Asthma Bronchitis Colitis COPD (chronic obstructive pulmonary disease) (HCC) Depression GERD (gastroesophageal reflux disease) Hypercholesterolemia Insomnia Obstructive sleep apnea Osteopenia Vitamin D deficiency Past Surgical History: Procedure Laterality Date APPENDECTOMY CT COLONOSCOPY 05/18/2019 CT COLONOSCOPY FINGER SURGERY Bilateral 11/03/2009 thumb FOOT SURGERY HYSTERECTOMY (CERVIX REMAINS) NASAL SEPTUM SURGERY 1989 possibly TONSILLECTOMY AND ADENOIDECTOMY Family History Problem Relation Age of Onset Other (unknown cancer) Mother Heart attack Father age 54 Asthma Father Unknown Sister Social History Tobacco Use Smoking status: Former Current packs/day: 0.00 Average packs/day: 1 pack/day for 44.0 years (44.0 ttl pk-yrs) Types: Cigarettes Start date: 03/03/1971 Quit date: 03/03/2015 Years since quittin.6 Tobacco comments: 1 ppd for 44 years, quit March 2015 Vaping Use Vaping status: Every Day Substances: Nicotine, Flavoring Devices: Disposable Substance Use Topics Alcohol use: Not Currently Comment: 1 drink per year Drug use: No Review of Systems Vitals: 10/28/24 1117 BP: 131/76 BP Location: Right arm Patient Position: Sitting BP Cuff Size: X-large Adult Pulse: 74 Resp: 16 Temp: 97.8 degrees F (36.6 degrees C) TempSrc: Temporal SpO2: 95% Weight: 106.6 kg (235 lb) Height: 5' 4 Estimated body mass index is 40.34 kg/m as calculated from the following: Height as of this encounter: 5' 4. Weight as of this encounter: 106.6 kg (235 lb). Physical Exam Constitutional: General: She is not in acute distress. Appearance: She is not ill-appearing. HENT: Head: Normocephalic and atraumatic. Nose: Nose normal. Mouth/Throat: Mouth: Mucous membranes are moist. Pharynx: Oropharynx is clear. No oropharyngeal exudate or posterior oropharyngeal erythema. Eyes: Extraocular Movements: Extraocular movements intact. Conjunctiva/sclera: Conjunctivae normal. Pupils: Pupils are equal, round, and reactive to light. Cardiovascular: Rate and Rhythm: Normal rate and regular rhythm. Pulses: Normal pulses. Heart sounds: Normal heart sounds. No murmur heard. No gallop. Pulmonary: Effort: Pulmonary effort is normal. Breath sounds: Wheezing and rhonchi (generalized) present. No rales. Chest: Chest wall: No tenderness. Abdominal: General: Abdomen is flat. Bowel sounds are normal. There is no distension. Palpations: Abdomen is soft. There is no mass. Tenderness: There is no abdominal tenderness. There is no right CVA tenderness, left CVA tenderness, guarding or rebound. Musculoskeletal: General: No tenderness. Normal range of motion. Cervical back: Normal range of motion and neck supple. No rigidity. No muscular tenderness. Right lower leg: No edema. Left lower leg: No edema. Lymphadenopathy: Cervical: No cervical adenopathy. Skin: General: Skin is warm. Findings: No erythema or rash. Neurological: General: No focal deficit present. Mental Status: She is alert and oriented to person, place, and time. Sensory: No sensory deficit. Motor: No weakness. Gait: Gait normal. Psychiatric: Mood and Affect: Mood normal. Behavior: Behavior normal. Thought Content: Thought content normal. Judgment: Judgment normal. OARRS/NARxCHECK Repo (more content not included)... [facility] Ambulatory 10-28-2024 History of Present illness Narrative Subjective Patient ID: Lola Drew is a 74 y.o. female here for Chief Complaint Patient presents with URI Symptoms x's 1 week Fall Risk Screening After discussing the use of ambient listening and audio recording in generating medical documentation, the patient verbally consented to use of this technology for today's visit. History of Present Illness Cough: She has been experiencing symptoms for the past week, including a headache, drainage, and a severe cough that occurs in spasms. The cough is associated with significant pain, which she does not attribute to a pulled muscle. She also reports back pain and wheezing. She is not aware of any fever, although she did have a temperature this morning. She reports no postnasal drainage but mentions choking on it. Her cough is both productive and dry. She has not undergone any COVID-19 or influenza testing at home. She also reports urinary incontinence during coughing episodes. She has a history of hives with penicillin but is open to trying it again. She has received the RSV vaccine. She has been self-medicating with Aleve, Ariella, and Tylenol. She was hospitalized last week for an eye procedure, during which she experienced chest pressure and jaw pain. She was informed that her x-rays were normal, but she has noticed increased mucus production in her lungs. ALLERGIES The patient has had an allergic reaction to PENICILLIN, resulting in hives. MEDICATIONS Current: Aleve, Ariella, Tylenol IMMUNIZATIONS She has received the RSV vaccine. Past Medical History: Diagnosis Date Asthma Bronchitis Colitis COPD (chronic obstructive pulmonary disease) (HCC) Depression GERD (gastroesophageal reflux disease) Hypercholesterolemia Insomnia Obstructive sleep apnea Osteopenia Vitamin D deficiency Past Surgical History: Procedure Laterality Date APPENDECTOMY CT COLONOSCOPY 05/18/2019 CT COLONOSCOPY FINGER SURGERY Bilateral 11/03/2009 thumb FOOT SURGERY HYSTERECTOMY (CERVIX REMAINS) NASAL SEPTUM SURGERY 1989 possibly TONSILLECTOMY AND ADENOIDECTOMY Family History Problem Relation Age of Onset Other (unknown cancer) Mother Heart attack Father age 54 Asthma Father Unknown Sister Social History Tobacco Use Smoking status: Former Current packs/day: 0.00 Average packs/day: 1 pack/day for 44.0 years (44.0 ttl pk-yrs) Types: Cigarettes Start date: 03/03/1971 Quit date: 03/03/2015 Years since quittin.6 Tobacco comments: 1 ppd for 44 years, quit March 2015 Vaping Use Vaping status: Every Day Substances: Nicotine, Flavoring Devices: Disposable Substance Use Topics Alcohol use: Not Currently Comment: 1 drink per year Drug use: No Review of Systems Vitals: 10/28/24 1117 BP: 131/76 BP Location: Right arm Patient Position: Sitting BP Cuff Size: X-large Adult Pulse: 74 Resp: 16 Temp: 97.8 F (36.6 C) TempSrc: Temporal SpO2: 95% Weight: 106.6 kg (235 lb) Height: 5' 4 Estimated body mass index is 40.34 kg/m as calculated from the following: Height as of this encounter: 5' 4. Weight as of this encounter: 106.6 kg (235 lb). Physical Exam Constitutional: General: She is not in acute distress. Appearance: She is not ill-appearing. HENT: Head: Normocephalic and atraumatic. Nose: Nose normal. Mouth/Throat: Mouth: Mucous membranes are moist. Pharynx: Oropharynx is clear. No oropharyngeal exudate or posterior oropharyngeal erythema. Eyes: Extraocular Movements: Extraocular movements intact. Conjunctiva/sclera: Conjunctivae normal. Pupils: Pupils are equal, round, and reactive to light. Cardiovascular: Rate and Rhythm: Normal rate and regular rhythm. Pulses: Normal pulses. Heart sounds: Normal heart sounds. No murmur heard. No gallop. Pulmonary: Effort: Pulmonary effort is normal. Breath sounds: Wheezing and rhonchi (generalized) present. No rales. Chest: Chest wall: No tenderness. Abdominal: General: Abdomen is flat. Bowel sounds are normal. There is no distension. Palpations: Abdomen is soft. There is no mass. Tenderness: There is no abdominal tenderness. There is no right CVA tenderness, left CVA tenderness, guarding or rebound. Musculoskeletal: General: No tenderness. Normal range of motion. Cervical back: Normal range of motion and neck supple. No rigidity. No muscular tenderness. Right lower leg: No edema. Left lower leg: No edema. Lymphadenopathy: Cervical: No cervical adenopathy. Skin: General: Skin is warm. Findings: No erythema or rash. Neurological: General: No focal deficit present. Mental Status: She is alert and oriented to person, place, and time. Sensory: No sensory deficit. Motor: No weakness. Gait: Gait normal. Psychiatric: Mood and Affect: Mood normal. Behavior: Behavior normal. Thought Content: Thought content normal. Judgment: Judgment normal. OARRS/NARxCHECK Report Received and Assessed: Date controlled substance agreement signed: No data found Date of last drug screen: PHQ9: SOPHY-7 Tobacco Counseling: Counseling given: Not Answered Tobacco comments: 1 ppd for 44 years, quit March 2015 Reviewed by Provider: Patient's Medications New Prescriptions DOXYCYCLINE HYCLATE (VIBRA-TABS) 100 MG TABLET Take 1 (one) tablet (100 mg total) by mouth 2 (two) times a day for 7 days . PREDNISONE (DELTASONE) 20 MG TABLET Take 2 (two) tablets (40 mg total) by mouth daily for 5 days . Previous Medications ALBUTEROL 90 MCG/ACTUATION INHALER Inhale 2 (two) puffs every 6 (six) hours as needed for wheezing . APIXABAN (ELIQUIS) 5 MG TAB Take 1 (one) tablet (5 mg total) by mouth 2 (two) times a day . ASPIRIN 81 MG EC TABLET Take 1 (one) tablet (81 mg total) by mouth daily Start: 10/21/24. BUPROPION (WELLBUTRIN XL) 300 MG 24 HR TABLET Take 1 (one) tablet (300 mg total) by mouth daily . CLOBETASOL (TEMOVATE) 0.05 % SCALP SOLUTION DULOXETINE (CYMBALTA) 30 MG CAPSULE Take 1 (one) capsule (30 mg total) by mouth daily Total of 90 mg with 60 mg prescription . DULOXETINE (CYMBALTA) 60 MG CAPSULE Take 1 (one) capsule (60 mg total) by mouth daily Total 90 mg daily . FEXOFENADINE (ARIELLA) 180 MG TABLET Take 1 (one) tablet (180 mg total) by mouth . FLUTICASONE PROPIONATE (FLONASE) 50 MCG/ACTUATION NASAL SPRAY Instill 1 (one) spray into each nostril daily . PUBEBNAQMAP-JBXCZTAGV-FRFNXIOY (TRELEGY ELLIPTA) 200-62.5-25 MCG DSDV Inhale 1 (one) Inhalation. daily . VCRGACKSIOR-NSUZUJKHN-ESDOLTMI (TRELEGY ELLIPTA) 200-62.5-25 MCG DSDV Inhale 1 (one) Inhalation. daily . FUROSEMIDE (LASIX) 40 MG TABLET Take 1 (one) tablet (40 mg total) by mouth 2 (two) times a day . IPRATROPIUM-ALBUTEROL (DUO-NEB) 0.5-2.5 MG/3 ML NEBULIZER Take 3 mL by nebulization 3 (three) times a day . LEVOTHYROXINE (SYNTHROID, LEVOTHROID) 75 MCG TABLET Take 1 (one) tablet (75 mcg total) by mouth daily . MECLIZINE (ANTIVERT) 25 MG TABLET Take 1 (one) tablet (25 mg total) by mouth 3 (three) times a day as needed for nausea . MONTELUKAST (SINGULAIR) 10 MG TABLET Take 1 tablet (10 mg total) by mouth daily. NITROGLYCERIN (NITROSTAT) 0.[address] 1 (one) tablet (0.4 mg total) under the tongue every 5 (five) minutes as needed for chest pain , if no relief after 3 doses call 911 . NONFORMULARY CPAP 9cm H20 (DASKY) in [facility] ONDANSETRON (ZOFRAN-ODT) 4 MG DISINTEGRATING TABLET Dissolve 1 (one) tablet (4 mg total) on top of tongue every 6 to 8 hours as needed for nausea . PANTOPRAZOLE (PROTONIX) 40 MG TABLET Take by mouth . POTASSIUM CHLORIDE (MICRO-K) 10 MEQ CR CAPSULE Take 1 (one) capsule (10 mEq total) by mouth daily . SIMVASTATIN (ZOCOR) 40 MG TABLET Take 1 (one) tablet (40 mg total) by mouth daily . SUMATRIPTAN (IMITREX) 50 MG TABLET Take 1 (one) tablet (50 mg total) by mouth every 2 (two) hours as needed for migraine Max of 200 mg in 24hrs, do not treat more than 3 times a week . Modified Medications No medications on file Discontinued Medications No medications on file Health Maintenance Due Topic Date Due Hepatitis C Screening Never done Respiratory Syncytial Virus Immunization: Risk, 60-74 Risk, or 75+ (1 - Risk 60-74 years 1-dose series) Never done Medicare Wellness Visit 05/15/2024 Zoster Vaccines (3 of 3) 09/29/2024 Assessment & Plan Problem List Items Addressed This Visit Respiratory COPD with asthma (HCC) COPD with acute exacerbation (HCC) Relevant Medications doxycycline hyclate (VIBRA-TABS) 100 MG tablet predniSONE (DELTASONE) 20 MG tablet Other Relevant Orders XR Chest AP/PA and LAT (Completed) Other Cough Other Visit Diagnoses At low risk for fall - Primary Assessment & Plan Assessment & Plan 1. Cough. The etiology of the cough could be a viral infection, potentially exacerbated by her underlying COPD, or it may be indicative of a current bacterial infection. The presence of significant wheezing and crackling in her lungs suggests a possible bacterial infection. She has been informed that she should experience symptom relief within 24 to 48 hours following the initiation of treatment. A chest x-ray will be ordered to further investigate the cause of the cough. Concurrently, a treatment regimen of doxycycline for 7 days and prednisone for 5 days will be initiated. The results of the chest x-ray will guide the decision on whether to add Augmentin or penicillin to the treatment plan. She has expressed willingness to try penicillin again despite a previous history of hives. If the chest x-ray reveals pneumonia, Augmentin or penicillin will be added to the treatment plan. Depending on the chest x-ray results, Omnicef may be considered as an alternative to Augmentin. Follow-up The patient is scheduled for a follow-up visit on 11/22/2024. After discussing the use of ambient listening and audio recording in generating medical documentation, the patient verbally consented to use of this technology for today's visit. My ongoing relationship with Lola Liam Coffmanalycia requires continued responsibility and cognitive effort of being the focal point for all services related to chronic condition(s). Return in 1 day (on 10/29/2024), or if symptoms worsen or fail to improve. SARA ALVAREZ MD [facility] [address] [facility] [address] [facility] [id number] Dept: [phone] 04/12/2024 1:43 PM Depression Screening Little interest or pleasure in doing things 2 Feeling down, depressed, or hopeless 2 PHQ-2 Total Score 4 Trouble falling or staying asleep, or sleeping too much 3 Feeling tired or having little energy 3 Poor appetite or overeating 3 Feeling bad about yourself - or that you are a failure or have let yourself or your family down 3 Trouble concentrating on things, such as reading the newspaper or watching television 3 Moving or speaking so slowly that other people could have noticed. Or the opposite - being so fidgety or restless that you have been moving around a lot more than usual 2 Thoughts that you would be better off , or of hurting yourself in some way 0 PHQ-9 Total Score 21 If you checked off any problems, how difficult have these problems made it for you to do your work, take care of things at home, or get along with other people? Somewhat difficult documented in this encounter [facility] 10-28-2024 Instructions Sara Alvarez MD - 10/28/2024 11:28 AM EST STEADI Low Risk Patient Instructions: Your Falls Screening today shows that you are at low risk for falls. To further protect yourself from falls and maintain your independence, we recommend: 1. Read through the brochure, What You Can Do to Prevent Falls (from [facility]). 2. Go through the brochure, Check for Safety: A Home Fall Prevention Checklist for Older Adults (from [facility]), and make changes as recommended. 3. Join a community falls prevention program: Stepping On, a 7-week evidence based program that teaches balance exercises and fall prevention strategies Merrick Chi for older adults, group exercise that teaches Merrick Chi forms that reduce fall risk (weight shifting, postural alignment and control, and coordinated movements of the arms, legs, head, and trunk) Matter of Balance, an evidence based program designed to reduce the fear of falling and increase activity levels of older adults OR an exercise class for strength and balance. 4. Take your Vitamin D with or without Calcium, as determined by your healthcare provider. 5. Get your vision and hearing checked annually. Falls At Home Each year, thousands of older Americans fall at home. Many of them are seriously injured, and some are disabled. In 2011, nearly 23,000 people over age 65 and 2.4 million were treated in emergency departments because of falls. Falls are often due to hazards that are easy to overlook but easy to fix. This checklist will help you find and fix those hazards in your home. The checklist asks about hazards found in each room of your home. For each hazard, the checklist tells you how to fix the problem. At the end of the checklist, you ll find other tips for preventing falls. FLOORS: Look at the floor in each room. Q: When you walk through a room, do you have to walk around furniture? A. Ask someone to move the furniture so your path is clear Q: Do you have throw rugs on the floor? A. Remove the rugs or use double-sided tape or a non-slip backing so the rugs won t slip. Q: Are there papers, books, towels, shoes, magazines, boxes, blankets, or other objects on the floor? A.piping supervisor things that are on the floor. Always keep objects off the floor. Q: Do you have to walk over or around wires or cords (like lamp, telephone, or extension cords)? A. Coil or tape cords and wires next to the wall so you can t trip over them. If needed, have an construction electrician put in another outlet. STAIRS AND STEPS: Look at the stairs you use both inside and outside your home. Q: Are there papers, shoes, books, or other objects on the stairs? A. piping supervisor things on the stairs. Always keep objects off stairs. Q: Are some steps broken or uneven? A. Fix loose or uneven steps. Q: Are you missing a light over the stairway? A. Have an construction electrician put in an overhead light at the top and bottom of the stairs. Q: Do you have only one light switch for your stairs (only at the top or at the bottom of the stairs)? A. Have an construction electrician put in a light switch at the top and bottom of the stairs. You can get light switches that glow. Q: Has the stairway light bulb burned out? A. Have a friend or family member change the light bulb. Q: Is the carpet on the steps loose or torn? A. Make sure the carpet is firmly attached to every step, or remove the carpet and attach non-slip rubber treads to the stairs. Q: Are the handrails loose or broken? Is there a handrail on only one side of the stairs? A. Fix loose handrails or put in new ones. Make sure handrails are on both sides of the stairs and are as long as the stairs. KITCHEN: Look at your kitchen and eating area. Q: Are the things you use often on high shelves? A. Move items in your cabinets. Keep things you use often on the lower shelves (about waist level). Q: Is your step stool unsteady? A. If you must use a step stool, get one with a bar to hold on to. Never use a chair as a step stool. BATHROOMS: Look at all your bathrooms. Q: Is the tub or shower floor slippery? A. Put a non-slip rubber mat or self-stick strips on the floor of the tub or shower. Q: Do you need some support when you get in and out of the tub or up from the toilet? A. Have grab bars put in next to and inside the tub and next to the toilet. BEDROOMS: Look at all your bedrooms. Q: Is the light near the bed hard to reach? A. Place a lamp close to the bed where it s easy to reach. Q: Is the path from your bed to the bathroom dark? A. Put in a night-light so you can see where you re walking. Some night-lights go on by themselves after dark. Other Things You Can Do to Prevent Falls Do exercises that improve your balance and make your legs stronger. Exercise also helps you feel better and more confident. Have your doctor or pharmacist look at all the medicines you take, even obsq-mpe-tktygrk medicines. Some medicines can make you sleepy or dizzy. Have your eyes checked by an eye doctor at least once a year and update your glasses. Get up slowly after you sit or lie down. Wear shoes both inside and outside the house. Avoid going barefoot or wearing slippers. Improve the lighting in your home. Put in brighter light bulbs. Florescent bulbs are bright and cost less to use. It s safest to have uniform lighting in a room. Add lighting to dark areas. Hang lightweight curtains or shades to reduce glare. [place] a contrasting color on the top edge of all steps so you can see the stairs better. For example, use a light color paint on dark wood. To access this brochure online, please visit the CDC website at http://www.cdc.gov/steadi/pdf/yuko ck_for_safety_brochure-a.pdf Chair Rise Exercise What it does: Strengthens the muscles in your thighs & buttocks. Goal: To do this exercise without using your hands as you become stronger. How to do it: 1. Sit toward the front of a sturdy chair with your knees bent & feet flat on the floor shoulder-width apart 2. Rest your hands lightly on the seat on either side of you, keeping your back & neck straight & and chest slightly forward. 3. Breathe in slowly. Lean forward & feel your weight on the front of your feet. 4. Breathe out and slowly stand up, using your hands as little as possible. 5. Pause for a full breath in & out. 6. Breathe in as you slowly sit down. Do not let yourself collapse back down into the chair. Rather, control your lowering as much as possible. 7. Breathe out. Repeat 10-15 times. If this number is too hard for you when you first start practicing this exercise, begin with fewer and work up to this number. Rest for a minute & then do a final set of 10-15. For detailed instructions, please visit the CDC website at http://www.cdc.gov/steadi/pdf/romulo ir_rise_exercise-a.pdf Stepping On is an evidence based program proven to reduce falls in older adults. It is a workshop offered once a week for seven weeks. In a small-group setting, you will learn balance exercises and develop specific knowledge and skills to prevent falls. Older adults who should attend are those who: are at risk of falling who have fallen one or more times lives at home are able to walk without the help of another person Local guest experts provide information on exercise, safety, vision, and medications. Classes are offered at [facility]. To find out specifics about a class, please call [phone]. Merrick chi: Moving for Better Balance involves low impact exercise. The 12-week class is offered for three hours per week and is led by a trained humanities instructor. It is intended for people aged 60 and older. Participants learn and perform a program of eight forms that progress from easy to more difficult. The program can accommodate persons with various physical conditions. Health Benefits of Merrick Chi: Moving for Better Balance: Improved social and mental well-being, Improved balance and physical functioning, Improved confidence in conducting daily activities, Reduced risk of falling and sustaining associated injuries, and Maintained independence and improved quality of life. To find a Merrick Chi program in your area or additional resources about fall prevention please contact: [facility] Violence and Injury Prevention Program at [phone] or [email or web address] A Matter of Balance: Managing Concerns about Falls is an evidence based program designed to reduce the fear of falling and increase activity levels of older adults. A trained communications programmer leads 8 two-hour sessions for small groups of older adults. The class is intended for people 60 and older who are at risk of falling have a fear of falling or restrict activities who have fallen in the past are interested in improving flexibility, balance, and strength. Participants will learn to view falls as controllable, set goals to increase activity levels, and reduce fall risks at home. Classes are offered in all [address] [place] [address] in [place]. For more information about specific classes near you, please visit http://aging.[place].gov/steadyu/res ources/matterofbalance.aspx. documented in this encounter [facility] 10-21-2024 History of Present illness Narrative CALLED PT LMOM INFORMED PATIENT TO CALL BACK TO SCHEDULE ROSIE I see , please offer ROSIE, until appointment needs to track her blood pressure , heart rate and weight please , thank you IT WAS NOTED THAT ECHO WAS COMPLETED IN HOSPITAL WHY APPT WAS CANCELED Images from the original note were not included. October 21, 2024 Allen Das RN 10/21/24 11:37 AM Note Call back received from patient. CCTA and echo reviewed. Verbalizes understanding and denies further needs. Allen Das RN 10/21/24 11:[address] Ibanez: Her RV function is normal. Estimated pulmonary pressure are also normal. Allen Das RN 10/21/24 11:15 AM Note Called patient to update that Dr. Ibanez reviewed her IP echo Her appointment with cardiology was cancelled not sure why , that would be the most appropriate however if she doesn't have anything in the future with cardiology I will see her for ROSIE. PLEASE REVIEW,THANK YOU Images from the original note were not included. 10/21/24 1031 ROSIE General Info Assessment completed with: Patient Post-Discharge Call: Medications Is the patient taking all medications as directed (includes completed medication regime)? Yes Nursing Interventions Nurse provided patient education Medications reviewed with patient/caregiver? No Is the patient having any side effects they believe may be caused by any medication additions or changes? No Does the patient have all medications ordered at discharge? Yes Nursing Interventions Nurse provided patient education Appointments Does the patient have a primary care provider? Yes Does the patient have a follow up appointment scheduled related to this admission? No Nursing Interventions Educated patient on importance of making appointment Self Management Was Home Health ordered? No Was Durable Medical Equipment (DME) ordered? No Are there psychosocial issues? No Patient Teaching Did the patient receive a copy of their discharge instructions? Yes What is the patient's perception of their health status since discharge? Improving Provided education for complications or exacerbations and when to seek emergent/urgent care? Yes Is the patient/cargiver able to teach back the hierarchy of who to call/visit for symptoms/problems? (PCP, Specialist, Home Health Nurse, Urgent Care, ED, 911) Yes Additional Teach Back Comments Patient is doing fine. She denies any chest pain. She denies any CM needs. Contact information provided. Did the patient feel the follow up calls were helpful during their recovery period? Yes Lola Drew Admitted: 10/19/2024 Discharge Date: 10/20/24 PCP Handoff Recommended Outpatient Testing Please follow up with your lodging facilities manager and PCP. Continue annual low dose lung screening Results Pending At Discharge None Clinical Summary Lola Drew is a 74 y.o. 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 Angina DVT / PE 07/2024 Pulmonary HTN Chronic HFpEF HLD CAD ECHO 07/25/2024 - Enlarged RV with reduced RV function, EF 81%, pulmonary HTN Repeat ECHO EF 65-70% CCTA - Multiple small pulmonary nodules. Mild mucosal debris. Hepatic steatosis and small hiatal hernia. Proximal LAD with small plaque, less than 25% stenosis. Calcium score 1. The rest of the coronary arteries are free from significant disease CXR - no acute processes Lipid profile - unremarkable Troponin 8>8 Heart score - 4 Continue Eliquis, lasix, statin, and add ASA PRN nitroglycerin COPD Not in acute exacerbation Continue Singulair, Duo-Neb, Spriva, Dulera, albuterol prn GERD Continue Protonix Hypothyroidism TSH 1.38 Continue Synthroid Depression Continue duloxetine and Wellbutrin Obesity BMI 40.45 Encourage diet and lifestyle modifications Discharge Medications Discharge Medications New Medications Details aspirin 81 MG EC tablet Start taking on: October 21, 2024 Take 1 (one) tablet (81 mg total) by mouth daily Start: 10/21/24. Quantity: 30 tablet nitroGLYCERIN 0.4 MG SL tablet Commonly known as: NITROSTAT Place 1 (one) tablet (0.4 mg total) under the tongue every 5 (five) minutes as needed for chest pain , if no relief after 3 doses call 911 . Quantity: 90 tablet Medications To Continue Details albuterol 90 mcg/actuation inhaler Inhale 2 (two) puffs every 6 (six) hours as needed for wheezing . apixaban 5 mg Tab Commonly known as: Eliquis Take 1 (one) tablet (5 mg total) by mouth 2 (two) times a day . Quantity: 180 tablet buPROPion 300 MG 24 hr tablet Commonly known as: WELLBUTRIN XL Take 1 (one) tablet (300 mg total) by mouth daily . Quantity: 90 tablet clobetasoL 0.05 % scalp solution Commonly known as: TEMOVATE * DULoxetine 30 MG capsule Commonly known as: CYMBALTA Take 1 (one) capsule (30 mg total) by mouth daily Total of 90 mg with 60 mg prescription . Quantity: 30 capsule * DULoxetine 60 MG capsule Commonly known as: CYMBALTA Take 1 (one) capsule (60 mg total) by mouth daily Total 90 mg daily . Quantity: 90 capsule fexofenadine 180 MG tablet Commonly known as: ARIELLA Take 1 (one) tablet (180 mg total) by mouth . fluticasone propionate 50 mcg/actuation nasal spray Commonly known as: FLONASE Instill 1 (one) spray into each nostril daily . Quantity: 16 g furosemide 40 MG tablet Commonly known as: LASIX Take 1 (one) tablet (40 mg total) by mouth 2 (two) times a day . ipratropium-albuteroL 0.5-2.5 mg/3 ml nebulizer Commonly known as: DUO-NEB Take 3 mL by nebulization 3 (three) times a day . Quantity: 270 mL levothyroxine 75 MCG tablet Commonly known as: SYNTHROID, LEVOTHROID Take 1 (one) tablet (75 mcg total) by mouth daily . meclizine 25 mg tablet Commonly known as: ANTIVERT Take 1 (one) tablet (25 mg total) by mouth 3 (three) times a day as needed for nausea . Quantity: 30 tablet montelukast 10 mg tablet Commonly known as: SINGULAIR Take 1 tablet (10 mg total) by mouth daily. Quantity: 90 tablet NONFORMULARY CPAP 9cm H20 (DASCO) in [facility] ondansetron 4 MG disintegrating tablet Commonly known as: ZOFRAN-ODT Dissolve 1 (one) tablet (4 mg total) on top of tongue every 6 to 8 hours as needed for nausea . Quantity: 20 tablet pantoprazole 40 MG tablet Commonly known as: PROTONIX Take by mouth . potassium chloride 10 MEQ CR capsule Commonly known as: MICRO-K Take 1 (one) capsule (10 mEq total) by mouth daily . Quantity: 90 capsule simvastatin 40 MG tablet Commonly known as: ZOCOR Take 1 (one) tablet (40 mg total) by mouth daily . Quantity: 90 tablet SUMAtriptan 50 MG tablet Commonly known as: IMITREX Take 1 (one) tablet (50 mg total) by mouth every 2 (two) hours as needed for migraine Max of 200 mg in 24hrs, do not treat more than 3 times a week . Quantity: 10 tablet * Trelegy Ellipta 200-62.5-25 mcg Dsdv Generic drug: ntzypzjgqug-ylcrwstnp-bnfpetbq Inhale 1 (one) Inhalation. daily . Quantity: 28 each * Treleze Ellipta 200-62.5-25 mcg Dsdv Generic drug: xhleapxcmuy-whgavlrpd-takgrbfs Inhale 1 (one) Inhalation. daily . Quantity: 28 each * There are duplicate medications prescribed to the patient Physician(s) Follow Up: Jens Ibanez MD [address] [facility] [id number] Schedule an appointment as soon as possible for a visit Sara Alvarez MD [address] [address] Follow up As needed Future Appointments Date Time Provider Department Center 11/01/2024 10:15 AM Rogelio Panda CNP [facility] 11/22/2024 1:40 PM Sara Alvarez MD [facility] documented in this encounter [facility] 10-21-2024 Note I see , please offer ROSIE, until appointment needs to track her blood pressure , heart rate and weight please , thank you AUTHENTICATED BY SARA ALVAREZ, ON 10/21/2024 13:19:25 [facility] Ambulatory 10-21-2024 History of Present illness Narrative I see , please offer ROSIE, until appointment needs to track her blood pressure , heart rate and weight please , thank you IT WAS NOTED THAT ECHO WAS COMPLETED IN HOSPITAL WHY APPT WAS CANCELED Images from the original note were not included. October 21, 2024 Allen Das RN 10/21/24 11:37 AM Note Call back received from patient. CCTA and echo reviewed. Verbalizes understanding and denies further needs. Allen Das RN 10/21/24 11:[address] Ibanez: Her RV function is normal. Estimated pulmonary pressure are also normal. Allen Das RN 10/21/24 11:15 AM Note Called patient to update that Dr. Ibanez reviewed her IP echo Her appointment with cardiology was cancelled not sure why , that would be the most appropriate however if she doesn't have anything in the future with cardiology I will see her for ROSIE. PLEASE REVIEW,THANK YOU Images from the original note were not included. 10/21/24 1031 ROSIE General Info Assessment completed with: Patient Post-Discharge Call: Medications Is the patient taking all medications as directed (includes completed medication regime)? Yes Nursing Interventions Nurse provided patient education Medications reviewed with patient/caregiver? No Is the patient having any side effects they believe may be caused by any medication additions or changes? No Does the patient have all medications ordered at discharge? Yes Nursing Interventions Nurse provided patient education Appointments Does the patient have a primary care provider? Yes Does the patient have a follow up appointment scheduled related to this admission? No Nursing Interventions Educated patient on importance of making appointment Self Management Was Home Health ordered? No Was Durable Medical Equipment (DME) ordered? No Are there psychosocial issues? No Patient Teaching Did the patient receive a copy of their discharge instructions? Yes What is the patient's perception of their health status since discharge? Improving Provided education for complications or exacerbations and when to seek emergent/urgent care? Yes Is the patient/cargiver able to teach back the hierarchy of who to call/visit for symptoms/problems? (PCP, Specialist, Home Health Nurse, Urgent Care, ED, 911) Yes Additional Teach Back Comments Patient is doing fine. She denies any chest pain. She denies any CM needs. Contact information provided. Did the patient feel the follow up calls were helpful during their recovery period? Yes Lola Drew Admitted: 10/19/2024 Discharge Date: 10/20/24 PCP Handoff Recommended Outpatient Testing Please follow up with your lodging facilities manager and PCP. Continue annual low dose lung screening Results Pending At Discharge None Clinical Summary Lola Drew is a 74 y.o. female patient of Sara Alvarez MD with history of COPD, JOHNATHAN, HLD, hypothyroidism, hx of DVT with PE causing pulmonary HTN and RV dysfunction on eliquis presented to [facility] on 10/19/2024 with chest pain prior to cataract removal surgery at [facility] . Angina DVT / PE 07/2024 Pulmonary HTN Chronic HFpEF HLD CAD ECHO 07/25/2024 - Enlarged RV with reduced RV function, EF 81%, pulmonary HTN Repeat ECHO EF 65-70% CCTA - Multiple small pulmonary nodules. Mild mucosal debris. Hepatic steatosis and small hiatal hernia. Proximal LAD with small plaque, less than 25% stenosis. Calcium score 1. The rest of the coronary arteries are free from significant disease CXR - no acute processes Lipid profile - unremarkable Troponin 8>8 Heart score - 4 Continue Eliquis, lasix, statin, and add ASA PRN nitroglycerin COPD Not in acute exacerbation Continue Singulair, Duo-Neb, Spriva, Dulera, albuterol prn GERD Continue Protonix Hypothyroidism TSH 1.38 Continue Synthroid Depression Continue duloxetine and Wellbutrin Obesity BMI 40.45 Encourage diet and lifestyle modifications Discharge Medications Discharge Medications New Medications Details aspirin 81 MG EC tablet Start taking on: October 21, 2024 Take 1 (one) tablet (81 mg total) by mouth daily Start: 10/21/24. Quantity: 30 tablet nitroGLYCERIN 0.4 MG SL tablet Commonly known as: NITROSTAT Place 1 (one) tablet (0.4 mg total) under the tongue every 5 (five) minutes as needed for chest pain , if no relief after 3 doses call 911 . Quantity: 90 tablet Medications To Continue Details albuterol 90 mcg/actuation inhaler Inhale 2 (two) puffs every 6 (six) hours as needed for wheezing . apixaban 5 mg Tab Commonly known as: Eliquis Take 1 (one) tablet (5 mg total) by mouth 2 (two) times a day . Quantity: 180 tablet buPROPion 300 MG 24 hr tablet Commonly known as: WELLBUTRIN XL Take 1 (one) tablet (300 mg total) by mouth daily . Quantity: 90 tablet clobetasoL 0.05 % scalp solution Commonly known as: TEMOVATE * DULoxetine 30 MG capsule Commonly known as: CYMBALTA Take 1 (one) capsule (30 mg total) by mouth daily Total of 90 mg with 60 mg prescription . Quantity: 30 capsule * DULoxetine 60 MG capsule Commonly known as: CYMBALTA Take 1 (one) capsule (60 mg total) by mouth daily Total 90 mg daily . Quantity: 90 capsule fexofenadine 180 MG tablet Commonly known as: ARIELLA Take 1 (one) tablet (180 mg total) by mouth . fluticasone propionate 50 mcg/actuation nasal spray Commonly known as: FLONASE Instill 1 (one) spray into each nostril daily . Quantity: 16 g furosemide 40 MG tablet Commonly known as: LASIX Take 1 (one) tablet (40 mg total) by mouth 2 (two) times a day . ipratropium-albuteroL 0.5-2.5 mg/3 ml nebulizer Commonly known as: DUO-NEB Take 3 mL by nebulization 3 (three) times a day . Quantity: 270 mL levothyroxine 75 MCG tablet Commonly known as: SYNTHROID, LEVOTHROID Take 1 (one) tablet (75 mcg total) by mouth daily . meclizine 25 mg tablet Commonly known as: ANTIVERT Take 1 (one) tablet (25 mg total) by mouth 3 (three) times a day as needed for nausea . Quantity: 30 tablet montelukast 10 mg tablet Commonly known as: SINGULAIR Take 1 tablet (10 mg total) by mouth daily. Quantity: 90 tablet NONFORMULARY CPAP 9cm H20 (DASCO) in [facility] ondansetron 4 MG disintegrating tablet Commonly known as: ZOFRAN-ODT Dissolve 1 (one) tablet (4 mg total) on top of tongue every 6 to 8 hours as needed for nausea . Quantity: 20 tablet pantoprazole 40 MG tablet Commonly known as: PROTONIX Take by mouth . potassium chloride 10 MEQ CR capsule Commonly known as: MICRO-K Take 1 (one) capsule (10 mEq total) by mouth daily . Quantity: 90 capsule simvastatin 40 MG tablet Commonly known as: ZOCOR Take 1 (one) tablet (40 mg total) by mouth daily . Quantity: 90 tablet SUMAtriptan 50 MG tablet Commonly known as: IMITREX Take 1 (one) tablet (50 mg total) by mouth every 2 (two) hours as needed for migraine Max of 200 mg in 24hrs, do not treat more than 3 times a week . Quantity: 10 tablet * Trelegy Ellipta 200-62.5-25 mcg Dsdv Generic drug: nnlgivtylds-fuunqoumx-odkfhojq Inhale 1 (one) Inhalation. daily . Quantity: 28 each * Trelegy Ellipta 200-62.5-25 mcg Dsdv Generic drug: asglinfzemp-yjhlvejrp-hijdowau Inhale 1 (one) Inhalation. daily . Quantity: 28 each * There are duplicate medications prescribed to the patient Physician(s) Follow Up: Jens Ibanez MD [address] [facility] [address] Schedule an appointment as soon as possible for a visit Sara Alvarez MD [address] [place] [phone] Follow up As needed Future Appointments Date Time Provider Department Center 11/01/2024 10:15 AM Rogelio Panda CNP [facility] 11/22/2024 1:40 PM Sara Alvarez MD [facility] documented in this encounter [facility] 10-21-2024 History of Present illness Narrative IT WAS NOTED THAT ECHO WAS COMPLETED IN HOSPITAL WHY APPT WAS CANCELED Images from the original note were not included. October 21, 2024 Allen Das RN 10/21/24 11:37 AM Note Call back received from patient. CCTA and echo reviewed. Verbalizes understanding and denies further needs. Allen Das RN 10/21/24 11:[address] Ibanez: Her RV function is normal. Estimated pulmonary pressure are also normal. Allen Das RN 10/21/24 11:15 AM Note Called patient to update that Dr. Ibanez reviewed her IP echo Her appointment with cardiology was cancelled not sure why , that would be the most appropriate however if she doesn't have anything in the future with cardiology I will see her for ROSIE. PLEASE REVIEW,THANK YOU Images from the original note were not included. 10/21/24 1031 ROSIE General Info Assessment completed with: Patient Post-Discharge Call: Medications Is the patient taking all medications as directed (includes completed medication regime)? Yes Nursing Interventions Nurse provided patient education Medications reviewed with patient/caregiver? No Is the patient having any side effects they believe may be caused by any medication additions or changes? No Does the patient have all medications ordered at discharge? Yes Nursing Interventions Nurse provided patient education Appointments Does the patient have a primary care provider? Yes Does the patient have a follow up appointment scheduled related to this admission? No Nursing Interventions Educated patient on importance of making appointment Self Management Was Home Health ordered? No Was Durable Medical Equipment (DME) ordered? No Are there psychosocial issues? No Patient Teaching Did the patient receive a copy of their discharge instructions? Yes What is the patient's perception of their health status since discharge? Improving Provided education for complications or exacerbations and when to seek emergent/urgent care? Yes Is the patient/cargiver able to teach back the hierarchy of who to call/visit for symptoms/problems? (PCP, Specialist, Home Health Nurse, Urgent Care, ED, 911) Yes Additional Teach Back Comments Patient is doing fine. She denies any chest pain. She denies any CM needs. Contact information provided. Did the patient feel the follow up calls were helpful during their recovery period? Yes Lola Drew Admitted: 10/19/2024 Discharge Date: 10/20/24 PCP Handoff Recommended Outpatient Testing Please follow up with your lodging facilities manager and PCP. Continue annual low dose lung screening Results Pending At Discharge None Clinical Summary Lola Derw is a 74 y.o. female patient of Sara Alvarez MD with history of COPD, JOHNATHAN, HLD, hypothyroidism, hx of DVT with PE causing pulmonary HTN and RV dysfunction on eliquis presented to [facility] on 10/19/2024 with chest pain prior to cataract removal surgery at [facility] . Angina DVT / PE 07/2024 Pulmonary HTN Chronic HFpEF HLD CAD ECHO 07/25/2024 - Enlarged RV with reduced RV function, EF 81%, pulmonary HTN Repeat ECHO EF 65-70% CCTA - Multiple small pulmonary nodules. Mild mucosal debris. Hepatic steatosis and small hiatal hernia. Proximal LAD with small plaque, less than 25% stenosis. Calcium score 1. The rest of the coronary arteries are free from significant disease CXR - no acute processes Lipid profile - unremarkable Troponin 8>8 Heart score - 4 Continue Eliquis, lasix, statin, and add ASA PRN nitroglycerin COPD Not in acute exacerbation Continue Singulair, Duo-Neb, Spriva, Dulera, albuterol prn GERD Continue Protonix Hypothyroidism TSH 1.38 Continue Synthroid Depression Continue duloxetine and Wellbutrin Obesity BMI 40.45 Encourage diet and lifestyle modifications Discharge Medications Discharge Medications New Medications Details aspirin 81 MG EC tablet Start taking on: October 21, 2024 Take 1 (one) tablet (81 mg total) by mouth daily Start: 10/21/24. Quantity: 30 tablet nitroGLYCERIN 0.4 MG SL tablet Commonly known as: NITROSTAT Place 1 (one) tablet (0.4 mg total) under the tongue every 5 (five) minutes as needed for chest pain , if no relief after 3 doses call 911 . Quantity: 90 tablet Medications To Continue Details albuterol 90 mcg/actuation inhaler Inhale 2 (two) puffs every 6 (six) hours as needed for wheezing . apixaban 5 mg Tab Commonly known as: Eliquis Take 1 (one) tablet (5 mg total) by mouth 2 (two) times a day . Quantity: 180 tablet buPROPion 300 MG 24 hr tablet Commonly known as: WELLBUTRIN XL Take 1 (one) tablet (300 mg total) by mouth daily . Quantity: 90 tablet clobetasoL 0.05 % scalp solution Commonly known as: TEMOVATE * DULoxetine 30 MG capsule Commonly known as: CYMBALTA Take 1 (one) capsule (30 mg total) by mouth daily Total of 90 mg with 60 mg prescription . Quantity: 30 capsule * DULoxetine 60 MG capsule Commonly known as: CYMBALTA Take 1 (one) capsule (60 mg total) by mouth daily Total 90 mg daily . Quantity: 90 capsule fexofenadine 180 MG tablet Commonly known as: ARIELLA Take 1 (one) tablet (180 mg total) by mouth . fluticasone propionate 50 mcg/actuation nasal spray Commonly known as: FLONASE Instill 1 (one) spray into each nostril daily . Quantity: 16 g furosemide 40 MG tablet Commonly known as: LASIX Take 1 (one) tablet (40 mg total) by mouth 2 (two) times a day . ipratropium-albuteroL 0.5-2.5 mg/3 ml nebulizer Commonly known as: DUO-NEB Take 3 mL by nebulization 3 (three) times a day . Quantity: 270 mL levothyroxine 75 MCG tablet Commonly known as: SYNTHROID, LEVOTHROID Take 1 (one) tablet (75 mcg total) by mouth daily . meclizine 25 mg tablet Commonly known as: ANTIVERT Take 1 (one) tablet (25 mg total) by mouth 3 (three) times a day as needed for nausea . Quantity: 30 tablet montelukast 10 mg tablet Commonly known as: SINGULAIR Take 1 tablet (10 mg total) by mouth daily. Quantity: 90 tablet NONFORMULARY CPAP 9cm H20 (DASCO) in [facility] ondansetron 4 MG disintegrating tablet Commonly known as: ZOFRAN-ODT Dissolve 1 (one) tablet (4 mg total) on top of tongue every 6 to 8 hours as needed for nausea . Quantity: 20 tablet pantoprazole 40 MG tablet Commonly known as: PROTONIX Take by mouth . potassium chloride 10 MEQ CR capsule Commonly known as: MICRO-K Take 1 (one) capsule (10 mEq total) by mouth daily . Quantity: 90 capsule simvastatin 40 MG tablet Commonly known as: ZOCOR Take 1 (one) tablet (40 mg total) by mouth daily . Quantity: 90 tablet SUMAtriptan 50 MG tablet Commonly known as: IMITREX Take 1 (one) tablet (50 mg total) by mouth every 2 (two) hours as needed for migraine Max of 200 mg in 24hrs, do not treat more than 3 times a week . Quantity: 10 tablet * Trelegy Ellipta 200-62.5-25 mcg Dsdv Generic drug: rllxdweadxi-ibesrqqgm-qieumjep Inhale 1 (one) Inhalation. daily . Quantity: 28 each * Trelegy Ellipta 200-62.5-25 mcg Dsdv Generic drug: rmiumlshros-kgzaqbkbb-qqdrbmmb Inhale 1 (one) Inhalation. daily . Quantity: 28 each * There are duplicate medications prescribed to the patient Physician(s) Follow Up: Jens Ibanez MD [address] [facility] [id number] Schedule an appointment as soon as possible for a visit Sara Alvarez MD [address] [address] Follow up As needed Future Appointments Date Time Provider Department Center 11/01/2024 10:15 AM Rogelio Panda CNP [facility] 11/22/2024 1:40 PM Sara Alvarez MD [facility] documented in this encounter [facility] 10-21-2024 History of Present illness Narrative Images from the original note were not included. October 21, 2024 Allen Das RN 10/21/24 11:37 AM Note Call back received from patient. CCTA and echo reviewed. Verbalizes understanding and denies further needs. Allen Das RN 10/21/24 11:[address] Ibanez: Her RV function is normal. Estimated pulmonary pressure are also normal. Allen Das RN 10/21/24 11:15 AM Note Called patient to update that Dr. Ibanez reviewed her IP echo Her appointment with cardiology was cancelled not sure why , that would be the most appropriate however if she doesn't have anything in the future with cardiology I will see her for ROSIE. PLEASE REVIEW,THANK YOU Images from the original note were not included. 10/21/24 1031 ROSIE General Info Assessment completed with: Patient Post-Discharge Call: Medications Is the patient taking all medications as directed (includes completed medication regime)? Yes Nursing Interventions Nurse provided patient education Medications reviewed with patient/caregiver? No Is the patient having any side effects they believe may be caused by any medication additions or changes? No Does the patient have all medications ordered at discharge? Yes Nursing Interventions Nurse provided patient education Appointments Does the patient have a primary care provider? Yes Does the patient have a follow up appointment scheduled related to this admission? No Nursing Interventions Educated patient on importance of making appointment Self Management Was Home Health ordered? No Was Durable Medical Equipment (DME) ordered? No Are there psychosocial issues? No Patient Teaching Did the patient receive a copy of their discharge instructions? Yes What is the patient's perception of their health status since discharge? Improving Provided education for complications or exacerbations and when to seek emergent/urgent care? Yes Is the patient/cargiver able to teach back the hierarchy of who to call/visit for symptoms/problems? (PCP, Specialist, Home Health Nurse, Urgent Care, ED, 911) Yes Additional Teach Back Comments Patient is doing fine. She denies any chest pain. She denies any CM needs. Contact information provided. Did the patient feel the follow up calls were helpful during their recovery period? Yes Lola Drew Admitted: 10/19/2024 Discharge Date: 10/20/24 PCP Handoff Recommended Outpatient Testing Please follow up with your lodging facilities manager and PCP. Continue annual low dose lung screening Results Pending At Discharge None Clinical Summary Lola Drew is a 74 y.o. 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 Angina DVT / PE 07/2024 Pulmonary HTN Chronic HFpEF HLD CAD ECHO 07/25/2024 - Enlarged RV with reduced RV function, EF 81%, pulmonary HTN Repeat ECHO EF 65-70% CCTA - Multiple small pulmonary nodules. Mild mucosal debris. Hepatic steatosis and small hiatal hernia. Proximal LAD with small plaque, less than 25% stenosis. Calcium score 1. The rest of the coronary arteries are free from significant disease CXR - no acute processes Lipid profile - unremarkable Troponin 8>8 Heart score - 4 Continue Eliquis, lasix, statin, and add ASA PRN nitroglycerin COPD Not in acute exacerbation Continue Singulair, Duo-Neb, Spriva, Dulera, albuterol prn GERD Continue Protonix Hypothyroidism TSH 1.38 Continue Synthroid Depression Continue duloxetine and Wellbutrin Obesity BMI 40.45 Encourage diet and lifestyle modifications Discharge Medications Discharge Medications New Medications Details aspirin 81 MG EC tablet Start taking on: October 21, 2024 Take 1 (one) tablet (81 mg total) by mouth daily Start: 10/21/24. Quantity: 30 tablet nitroGLYCERIN 0.4 MG SL tablet Commonly known as: NITROSTAT Place 1 (one) tablet (0.4 mg total) under the tongue every 5 (five) minutes as needed for chest pain , if no relief after 3 doses call 911 . Quantity: 90 tablet Medications To Continue Details albuterol 90 mcg/actuation inhaler Inhale 2 (two) puffs every 6 (six) hours as needed for wheezing . apixaban 5 mg Tab Commonly known as: Eliquis Take 1 (one) tablet (5 mg total) by mouth 2 (two) times a day . Quantity: 180 tablet buPROPion 300 MG 24 hr tablet Commonly known as: WELLBUTRIN XL Take 1 (one) tablet (300 mg total) by mouth daily . Quantity: 90 tablet clobetasoL 0.05 % scalp solution Commonly known as: TEMOVATE * DULoxetine 30 MG capsule Commonly known as: CYMBALTA Take 1 (one) capsule (30 mg total) by mouth daily Total of 90 mg with 60 mg prescription . Quantity: 30 capsule * DULoxetine 60 MG capsule Commonly known as: CYMBALTA Take 1 (one) capsule (60 mg total) by mouth daily Total 90 mg daily . Quantity: 90 capsule fexofenadine 180 MG tablet Commonly known as: ARIELLA Take 1 (one) tablet (180 mg total) by mouth . fluticasone propionate 50 mcg/actuation nasal spray Commonly known as: FLONASE Instill 1 (one) spray into each nostril daily . Quantity: 16 g furosemide 40 MG tablet Commonly known as: LASIX Take 1 (one) tablet (40 mg total) by mouth 2 (two) times a day . ipratropium-albuteroL 0.5-2.5 mg/3 ml nebulizer Commonly known as: DUO-NEB Take 3 mL by nebulization 3 (three) times a day . Quantity: 270 mL levothyroxine 75 MCG tablet Commonly known as: SYNTHROID, LEVOTHROID Take 1 (one) tablet (75 mcg total) by mouth daily . meclizine 25 mg tablet Commonly known as: ANTIVERT Take 1 (one) tablet (25 mg total) by mouth 3 (three) times a day as needed for nausea . Quantity: 30 tablet montelukast 10 mg tablet Commonly known as: SINGULAIR Take 1 tablet (10 mg total) by mouth daily. Quantity: 90 tablet NONFORMULARY CPAP 9cm H20 (DASCO) in [facility] ondansetron 4 MG disintegrating tablet Commonly known as: ZOFRAN-ODT Dissolve 1 (one) tablet (4 mg total) on top of tongue every 6 to 8 hours as needed for nausea . Quantity: 20 tablet pantoprazole 40 MG tablet Commonly known as: PROTONIX Take by mouth . potassium chloride 10 MEQ CR capsule Commonly known as: MICRO-K Take 1 (one) capsule (10 mEq total) by mouth daily . Quantity: 90 capsule simvastatin 40 MG tablet Commonly known as: ZOCOR Take 1 (one) tablet (40 mg total) by mouth daily . Quantity: 90 tablet SUMAtriptan 50 MG tablet Commonly known as: IMITREX Take 1 (one) tablet (50 mg total) by mouth every 2 (two) hours as needed for migraine Max of 200 mg in 24hrs, do not treat more than 3 times a week . Quantity: 10 tablet * Trelegy Ellipta 200-62.5-25 mcg Dsdv Generic drug: ahetrhqfbec-yefwzgasc-sdlkiwiv Inhale 1 (one) Inhalation. daily . Quantity: 28 each * Treleze Ellipta 200-62.5-25 mcg Dsdv Generic drug: afkgmizdkcj-adkyvnrap-hpdfrmvz Inhale 1 (one) Inhalation. daily . Quantity: 28 each * There are duplicate medications prescribed to the patient Physician(s) Follow Up: Jens Ibanez MD [address] [facility] [address] Schedule an appointment as soon as possible for a visit Sara Alvarez MD [address] [phone] Follow up As needed Future Appointments Date Time Provider Department Center 11/01/2024 10:15 AM Rogelio Panda CNP [facility] 11/22/2024 1:40 PM Sara Alvarez MD [facility] documented in this encounter [facility] 10-21-2024 Note Her appointment with cardiology was cancelled not sure why , that would be the most appropriate however if she doesn't have anything in the future with cardiology I will see her for ROSIE. AUTHENTICATED BY SARA ALVAREZ, ON 10/21/2024 13:10:20 [facility] 10-21-2024 History of Present illness Narrative Her appointment with cardiology was cancelled not sure why , that would be the most appropriate however if she doesn't have anything in the future with cardiology I will see her for ROSIE. PLEASE REVIEW,THANK YOU Images from the original note were not included. 10/21/24 1031 ROSIE General Info Assessment completed with: Patient Post-Discharge Call: Medications Is the patient taking all medications as directed (includes completed medication regime)? Yes Nursing Interventions Nurse provided patient education Medications reviewed with patient/caregiver? No Is the patient having any side effects they believe may be caused by any medication additions or changes? No Does the patient have all medications ordered at discharge? Yes Nursing Interventions Nurse provided patient education Appointments Does the patient have a primary care provider? Yes Does the patient have a follow up appointment scheduled related to this admission? No Nursing Interventions Educated patient on importance of making appointment Self Management Was Home Health ordered? No Was Durable Medical Equipment (DME) ordered? No Are there psychosocial issues? No Patient Teaching Did the patient receive a copy of their discharge instructions? Yes What is the patient's perception of their health status since discharge? Improving Provided education for complications or exacerbations and when to seek emergent/urgent care? Yes Is the patient/cargiver able to teach back the hierarchy of who to call/visit for symptoms/problems? (PCP, Specialist, Home Health Nurse, Urgent Care, ED, 911) Yes Additional Teach Back Comments Patient is doing fine. She denies any chest pain. She denies any CM needs. Contact information provided. Did the patient feel the follow up calls were helpful during their recovery period? Yes Lola Drew Admitted: 10/19/2024 Discharge Date: 10/20/24 PCP Handoff Recommended Outpatient Testing Please follow up with your lodging facilities manager and PCP. Continue annual low dose lung screening Results Pending At Discharge None Clinical Summary Lola Drew is a 74 y.o. 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 Angina DVT / PE 07/2024 Pulmonary HTN Chronic HFpEF HLD CAD ECHO 07/25/2024 - Enlarged RV with reduced RV function, EF 81%, pulmonary HTN Repeat ECHO EF 65-70% CCTA - Multiple small pulmonary nodules. Mild mucosal debris. Hepatic steatosis and small hiatal hernia. Proximal LAD with small plaque, less than 25% stenosis. Calcium score 1. The rest of the coronary arteries are free from significant disease CXR - no acute processes Lipid profile - unremarkable Troponin 8>8 Heart score - 4 Continue Eliquis, lasix, statin, and add ASA PRN nitroglycerin COPD Not in acute exacerbation Continue Singulair, Duo-Neb, Spriva, Dulera, albuterol prn GERD Continue Protonix Hypothyroidism TSH 1.38 Continue Synthroid Depression Continue duloxetine and Wellbutrin Obesity BMI 40.45 Encourage diet and lifestyle modifications Discharge Medications Discharge Medications New Medications Details aspirin 81 MG EC tablet Start taking on: October 21, 2024 Take 1 (one) tablet (81 mg total) by mouth daily Start: 10/21/24. Quantity: 30 tablet nitroGLYCERIN 0.4 MG SL tablet Commonly known as: NITROSTAT Place 1 (one) tablet (0.4 mg total) under the tongue every 5 (five) minutes as needed for chest pain , if no relief after 3 doses call 911 . Quantity: 90 tablet Medications To Continue Details albuterol 90 mcg/actuation inhaler Inhale 2 (two) puffs every 6 (six) hours as needed for wheezing . apixaban 5 mg Tab Commonly known as: Eliquis Take 1 (one) tablet (5 mg total) by mouth 2 (two) times a day . Quantity: 180 tablet buPROPion 300 MG 24 hr tablet Commonly known as: WELLBUTRIN XL Take 1 (one) tablet (300 mg total) by mouth daily . Quantity: 90 tablet clobetasoL 0.05 % scalp solution Commonly known as: TEMOVATE * DULoxetine 30 MG capsule Commonly known as: CYMBALTA Take 1 (one) capsule (30 mg total) by mouth daily Total of 90 mg with 60 mg prescription . Quantity: 30 capsule * DULoxetine 60 MG capsule Commonly known as: CYMBALTA Take 1 (one) capsule (60 mg total) by mouth daily Total 90 mg daily . Quantity: 90 capsule fexofenadine 180 MG tablet Commonly known as: ARIELLA Take 1 (one) tablet (180 mg total) by mouth . fluticasone propionate 50 mcg/actuation nasal spray Commonly known as: FLONASE Instill 1 (one) spray into each nostril daily . Quantity: 16 g furosemide 40 MG tablet Commonly known as: LASIX Take 1 (one) tablet (40 mg total) by mouth 2 (two) times a day . ipratropium-albuteroL 0.5-2.5 mg/3 ml nebulizer Commonly known as: DUO-NEB Take 3 mL by nebulization 3 (three) times a day . Quantity: 270 mL levothyroxine 75 MCG tablet Commonly known as: SYNTHROID, LEVOTHROID Take 1 (one) tablet (75 mcg total) by mouth daily . meclizine 25 mg tablet Commonly known as: ANTIVERT Take 1 (one) tablet (25 mg total) by mouth 3 (three) times a day as needed for nausea . Quantity: 30 tablet montelukast 10 mg tablet Commonly known as: SINGULAIR Take 1 tablet (10 mg total) by mouth daily. Quantity: 90 tablet NONFORMULARY CPAP 9cm H20 (DASCO) in [facility] ondansetron 4 MG disintegrating tablet Commonly known as: ZOFRAN-ODT Dissolve 1 (one) tablet (4 mg total) on top of tongue every 6 to 8 hours as needed for nausea . Quantity: 20 tablet pantoprazole 40 MG tablet Commonly known as: PROTONIX Take by mouth . potassium chloride 10 MEQ CR capsule Commonly known as: MICRO-K Take 1 (one) capsule (10 mEq total) by mouth daily . Quantity: 90 capsule simvastatin 40 MG tablet Commonly known as: ZOCOR Take 1 (one) tablet (40 mg total) by mouth daily . Quantity: 90 tablet SUMAtriptan 50 MG tablet Commonly known as: IMITREX Take 1 (one) tablet (50 mg total) by mouth every 2 (two) hours as needed for migraine Max of 200 mg in 24hrs, do not treat more than 3 times a week . Quantity: 10 tablet * Trelegy Ellipta 200-62.5-25 mcg Dsdv Generic drug: dhplsomojrv-dnczfomcr-rmjcsxvt Inhale 1 (one) Inhalation. daily . Quantity: 28 each * Trelegy Ellipta 200-62.5-25 mcg Dsdv Generic drug: sedfqyzbojp-opboevgld-exdmzcej Inhale 1 (one) Inhalation. daily . Quantity: 28 each * There are duplicate medications prescribed to the patient Physician(s) Follow Up: Jens Ibanez MD [address] [facility] [address] Schedule an appointment as soon as possible for a visit Sara Alvarez MD [address] [phone] Follow up As needed Future Appointments Date Time Provider Department Center 11/01/2024 10:15 AM Rogelio Panda CNP [facility] 11/22/2024 1:40 PM Sara Alvarez MD [facility] documented in this encounter [facility] 10-21-2024 History of Present illness Narrative PLEASE REVIEW,THANK YOU Images from the original note were not included. 10/21/24 1031 ROSIE General Info Assessment completed with: Patient Post-Discharge Call: Medications Is the patient taking all medications as directed (includes completed medication regime)? Yes Nursing Interventions Nurse provided patient education Medications reviewed with patient/caregiver? No Is the patient having any side effects they believe may be caused by any medication additions or changes? No Does the patient have all medications ordered at discharge? Yes Nursing Interventions Nurse provided patient education Appointments Does the patient have a primary care provider? Yes Does the patient have a follow up appointment scheduled related to this admission? No Nursing Interventions Educated patient on importance of making appointment Self Management Was Home Health ordered? No Was Durable Medical Equipment (DME) ordered? No Are there psychosocial issues? No Patient Teaching Did the patient receive a copy of their discharge instructions? Yes What is the patient's perception of their health status since discharge? Improving Provided education for complications or exacerbations and when to seek emergent/urgent care? Yes Is the patient/cargiver able to teach back the hierarchy of who to call/visit for symptoms/problems? (PCP, Specialist, Home Health Nurse, Urgent Care, ED, 911) Yes Additional Teach Back Comments Patient is doing fine. She denies any chest pain. She denies any CM needs. Contact information provided. Did the patient feel the follow up calls were helpful during their recovery period? Yes Lola Drew Admitted: 10/19/2024 Discharge Date: 10/20/24 PCP Handoff Recommended Outpatient Testing Please follow up with your lodging facilities manager and PCP. Continue annual low dose lung screening Results Pending At Discharge None Clinical Summary Lola Drew is a 74 y.o. female patient of Sara Alvarez MD with history of COPD, JOHNATHAN, HLD, hypothyroidism, hx of DVT with PE causing pulmonary HTN and RV dysfunction on eliquis presented to [facility] on 10/19/2024 with chest pain prior to cataract removal surgery at [facility] . Angina DVT / PE 07/2024 Pulmonary HTN Chronic HFpEF HLD CAD ECHO 07/25/2024 - Enlarged RV with reduced RV function, EF 81%, pulmonary HTN Repeat ECHO EF 65-70% CCTA - Multiple small pulmonary nodules. Mild mucosal debris. Hepatic steatosis and small hiatal hernia. Proximal LAD with small plaque, less than 25% stenosis. Calcium score 1. The rest of the coronary arteries are free from significant disease CXR - no acute processes Lipid profile - unremarkable Troponin 8>8 Heart score - 4 Continue Eliquis, lasix, statin, and add ASA PRN nitroglycerin COPD Not in acute exacerbation Continue Singulair, Duo-Neb, Spriva, Dulera, albuterol prn GERD Continue Protonix Hypothyroidism TSH 1.38 Continue Synthroid Depression Continue duloxetine and Wellbutrin Obesity BMI 40.45 Encourage diet and lifestyle modifications Discharge Medications Discharge Medications New Medications Details aspirin 81 MG EC tablet Start taking on: October 21, 2024 Take 1 (one) tablet (81 mg total) by mouth daily Start: 10/21/24. Quantity: 30 tablet nitroGLYCERIN 0.4 MG SL tablet Commonly known as: NITROSTAT Place 1 (one) tablet (0.4 mg total) under the tongue every 5 (five) minutes as needed for chest pain , if no relief after 3 doses call 911 . Quantity: 90 tablet Medications To Continue Details albuterol 90 mcg/actuation inhaler Inhale 2 (two) puffs every 6 (six) hours as needed for wheezing . apixaban 5 mg Tab Commonly known as: Eliquis Take 1 (one) tablet (5 mg total) by mouth 2 (two) times a day . Quantity: 180 tablet buPROPion 300 MG 24 hr tablet Commonly known as: WELLBUTRIN XL Take 1 (one) tablet (300 mg total) by mouth daily . Quantity: 90 tablet clobetasoL 0.05 % scalp solution Commonly known as: TEMOVATE * DULoxetine 30 MG capsule Commonly known as: CYMBALTA Take 1 (one) capsule (30 mg total) by mouth daily Total of 90 mg with 60 mg prescription . Quantity: 30 capsule * DULoxetine 60 MG capsule Commonly known as: CYMBALTA Take 1 (one) capsule (60 mg total) by mouth daily Total 90 mg daily . Quantity: 90 capsule fexofenadine 180 MG tablet Commonly known as: ARIELLA Take 1 (one) tablet (180 mg total) by mouth . fluticasone propionate 50 mcg/actuation nasal spray Commonly known as: FLONASE Instill 1 (one) spray into each nostril daily . Quantity: 16 g furosemide 40 MG tablet Commonly known as: LASIX Take 1 (one) tablet (40 mg total) by mouth 2 (two) times a day . ipratropium-albuteroL 0.5-2.5 mg/3 ml nebulizer Commonly known as: DUO-NEB Take 3 mL by nebulization 3 (three) times a day . Quantity: 270 mL levothyroxine 75 MCG tablet Commonly known as: SYNTHROID, LEVOTHROID Take 1 (one) tablet (75 mcg total) by mouth daily . meclizine 25 mg tablet Commonly known as: ANTIVERT Take 1 (one) tablet (25 mg total) by mouth 3 (three) times a day as needed for nausea . Quantity: 30 tablet montelukast 10 mg tablet Commonly known as: SINGULAIR Take 1 tablet (10 mg total) by mouth daily. Quantity: 90 tablet NONFORMULARY CPAP 9cm H20 (DASCO) in [facility] ondansetron 4 MG disintegrating tablet Commonly known as: ZOFRAN-ODT Dissolve 1 (one) tablet (4 mg total) on top of tongue every 6 to 8 hours as needed for nausea . Quantity: 20 tablet pantoprazole 40 MG tablet Commonly known as: PROTONIX Take by mouth . potassium chloride 10 MEQ CR capsule Commonly known as: MICRO-K Take 1 (one) capsule (10 mEq total) by mouth daily . Quantity: 90 capsule simvastatin 40 MG tablet Commonly known as: ZOCOR Take 1 (one) tablet (40 mg total) by mouth daily . Quantity: 90 tablet SUMAtriptan 50 MG tablet Commonly known as: IMITREX Take 1 (one) tablet (50 mg total) by mouth every 2 (two) hours as needed for migraine Max of 200 mg in 24hrs, do not treat more than 3 times a week . Quantity: 10 tablet * Trelegy Ellipta 200-62.5-25 mcg Dsdv Generic drug: jjazilbfhyc-dukvtzzgk-xykjnorb Inhale 1 (one) Inhalation. daily . Quantity: 28 each * Trelegy Ellipta 200-62.5-25 mcg Dsdv Generic drug: spilwobqtof-lxgydgkqq-omgzpzel Inhale 1 (one) Inhalation. daily . Quantity: 28 each * There are duplicate medications prescribed to the patient Physician(s) Follow Up: Jens Ibanez MD [address] [facility] [address] Schedule an appointment as soon as possible for a visit Sara Alvarez MD [address] [address] Follow up As needed Future Appointments Date Time Provider Department Center 11/01/2024 10:15 AM Rogelio Panda CNP [facility] 11/22/2024 1:40 PM Sara Alvarez MD [facility] documented in this encounter [facility] 10-20-2024 Plan of care note Problem: Actual or potential alteration in health Goal: Absence of healthcare acquired conditions Outcome: Completed Goal: Knowledge of Interdisciplinary Plan of Care Outcome: Completed Goal: Knowledge of Enviroment Outcome: Completed [facility] 10-20-2024 Miscellaneous Notes Problem: Actual or potential alteration in health Goal: Absence of healthcare acquired conditions Outcome: Completed Goal: Knowledge of Interdisciplinary Plan of Care Outcome: Completed Goal: Knowledge of Enviroment Outcome: Completed Problem: Actual or potential alteration in health Goal: Absence of healthcare acquired conditions Outcome: Partially Met Goal: Knowledge of Interdisciplinary Plan of Care Outcome: Partially Met Goal: Knowledge of Enviroment Outcome: Partially Met Problem: Actual or potential alteration in health Goal: Absence of healthcare acquired conditions Outcome: Partially Met Goal: Knowledge of Interdisciplinary Plan of Care Outcome: Partially Met Goal: Knowledge of Enviroment Outcome: Partially Met documented in this encounter [facility] 10-20-2024 Note HMS DISCHARGE SUMMAR Y -- [facility] Lola Drew Admitted: 10/19/2024 Discharge Date: 10/20/24 PCP Handoff Recommended Outpatient Testing Please follow up with your lodging facilities manager and PCP. Continue annual low dose lung screening Results Pending At Discharge None Clinical Summary Lola Drew is a 74 y.o. female patient of Sara Alvarez MD with history of COPD, JOHNATHAN, HLD, hypothyroidism, hx of DVT with PE causing pulmonary HTN and RV dysfunction on eliquis presented to [facility] on 10/19/2024 with chest pain prior to cataract removal surgery at [facility] . Angina DVT / PE 07/2024 Pulmonary HTN Chronic HFpEF HLD CAD ECHO 07/25/2024 - Enlarged RV with reduced RV function, EF 81%, pulmonary HTN Repeat ECHO EF 65-70% CCTA - Multiple small pulmonary nodules. Mild mucosal debris. Hepatic steatosis and small hiatal hernia. Proximal LAD with small plaque, less than 25% stenosis. Calcium score 1. The rest of the coronary arteries are free from significant disease CXR - no acute processes Lipid profile - unremarkable Troponin 8>8 Heart score - 4 Continue Eliquis, lasix, statin, and add ASA PRN nitroglycerin COPD Not in acute exacerbation Continue Singulair, Duo-Neb, Spriva, Dulera, albuterol prn GERD Continue Protonix Hypothyroidism TSH 1.38 Continue Synthroid Depression Continue duloxetine and Wellbutrin Obesity BMI 40.45 Encourage diet and lifestyle modifications Discharge Medications Discharge Medications New Medications Details aspirin 81 MG EC tablet Start taking on: October 21, 2024 Take 1 (one) tablet (81 mg total) by mouth daily Start: 10/21/24. Quantity: 30 tablet nitroGLYCERIN 0.4 MG SL tablet Commonly known as: NITROSTAT Place 1 (one) tablet (0.4 mg total) under the tongue every 5 (five) minutes as needed for chest pain , if no relief after 3 doses call 911 . Quantity: 90 tablet Medications To Continue Details albuterol 90 mcg/actuation inhaler Inhale 2 (two) puffs every 6 (six) hours as needed for wheezing . apixaban 5 mg Tab Commonly known as: Eliquis Take 1 (one) tablet (5 mg total) by mouth 2 (two) times a day . Quantity: 180 tablet buPROPion 300 MG 24 hr tablet Commonly known as: WELLBUTRIN XL Take 1 (one) tablet (300 mg total) by mouth daily . Quantity: 90 tablet clobetasoL 0.05 % scalp solution Commonly known as: TEMOVATE * DULoxetine 30 MG capsule Commonly known as: CYMBALTA Take 1 (one) capsule (30 mg total) by mouth daily Total of 90 mg with 60 mg prescription . Quantity: 30 capsule * DULoxetine 60 MG capsule Commonly known as: CYMBALTA Take 1 (one) capsule (60 mg total) by mouth daily Total 90 mg daily . Quantity: 90 capsule fexofenadine 180 MG tablet Commonly known as: ARIELLA Take 1 (one) tablet (180 mg total) by mouth . fluticasone propionate 50 mcg/actuation nasal spray Commonly known as: FLONASE Instill 1 (one) spray into each nostril daily . Quantity: 16 g furosemide 40 MG tablet Commonly known as: LASIX Take 1 (one) tablet (40 mg total) by mouth 2 (two) times a day . ipratropium-albuteroL 0.5-2.5 mg/3 ml nebulizer Commonly known as: DUO-NEB Take 3 mL by nebulization 3 (three) times a day . Quantity: 270 mL levothyroxine 75 MCG tablet Commonly known as: SYNTHROID, LEVOTHROID Take 1 (one) tablet (75 mcg total) by mouth daily . meclizine 25 mg tablet Commonly known as: ANTIVERT Take 1 (one) tablet (25 mg total) by mouth 3 (three) times a day as needed for nausea . Quantity: 30 tablet montelukast 10 mg tablet Commonly known as: SINGULAIR Take 1 tablet (10 mg total) by mouth daily. Quantity: 90 tablet NONFORMULARY CPAP 9cm H20 (DASCO) in [facility] ondansetron 4 MG disintegrating tablet Commonly known as: ZOFRAN-ODT Dissolve 1 (one) tablet (4 mg total) on top of tongue every 6 to 8 hours as needed for nausea . Quantity: 20 tablet pantoprazole 40 MG tablet Commonly known as: PROTONIX Take by mouth . potassium chloride 10 MEQ CR capsule Commonly known as: MICRO-K Take 1 (one) capsule (10 mEq total) by mouth daily . Quantity: 90 capsule simvastatin 40 MG tablet Commonly known as: ZOCOR Take 1 (one) tablet (40 mg total) by mouth daily . Quantity: 90 tablet SUMAtriptan 50 MG tablet Commonly known as: IMITREX Take 1 (one) tablet (50 mg total) by mouth every 2 (two) hours as needed for migraine Max of 200 mg in 24hrs, do not treat more than 3 times a week . Quantity: 10 tablet * Trelegy Ellipta 200-62.5-25 mcg Dsdv Generic drug: jjbcrebjyky-lnygkhckk-atlkcmwl Inhale 1 (one) Inhalation. daily . Quantity: 28 each * Trelegy Ellipta 200-62.5-25 mcg Dsdv Generic drug: qfiurlnzncc-sjpgrldzb-wmhitreg Inhale 1 (one) Inhalation. daily . Quantity: 28 each * There are duplicate medications prescribed to the patient Physician(s) Follow Up: Altagracia Ibanez (more content not included)... [facility] 10-20-2024 Hospital course Narrative Images from the original note were not included. [facility] [place] [facility] Lola Drew Admitted: 10/19/2024 Discharge Date: 10/20/24 PCP Handoff Recommended Outpatient Testing Please follow up with your lodging facilities manager and PCP. Continue annual low dose lung screening Results Pending At Discharge None Clinical Summary Lola Drew is a 74 y.o. 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 Angina DVT / PE 07/2024 Pulmonary HTN Chronic HFpEF HLD CAD ECHO 07/25/2024 - Enlarged RV with reduced RV function, EF 81%, pulmonary HTN Repeat ECHO EF 65-70% CCTA - Multiple small pulmonary nodules. Mild mucosal debris. Hepatic steatosis and small hiatal hernia. Proximal LAD with small plaque, less than 25% stenosis. Calcium score 1. The rest of the coronary arteries are free from significant disease CXR - no acute processes Lipid profile - unremarkable Troponin 8>8 Heart score - 4 Continue Eliquis, lasix, statin, and add ASA PRN nitroglycerin COPD Not in acute exacerbation Continue Singulair, Duo-Neb, Spriva, Dulera, albuterol prn GERD Continue Protonix Hypothyroidism TSH 1.38 Continue Synthroid Depression Continue duloxetine and Wellbutrin Obesity BMI 40.45 Encourage diet and lifestyle modifications Discharge Medications Discharge Medications New Medications Details aspirin 81 MG EC tablet Start taking on: October 21, 2024 Take 1 (one) tablet (81 mg total) by mouth daily Start: 10/21/24. Quantity: 30 tablet nitroGLYCERIN 0.4 MG SL tablet Commonly known as: NITROSTAT Place 1 (one) tablet (0.4 mg total) under the tongue every 5 (five) minutes as needed for chest pain , if no relief after 3 doses call 911 . Quantity: 90 tablet Medications To Continue Details albuterol 90 mcg/actuation inhaler Inhale 2 (two) puffs every 6 (six) hours as needed for wheezing . apixaban 5 mg Tab Commonly known as: Eliquis Take 1 (one) tablet (5 mg total) by mouth 2 (two) times a day . Quantity: 180 tablet buPROPion 300 MG 24 hr tablet Commonly known as: WELLBUTRIN XL Take 1 (one) tablet (300 mg total) by mouth daily . Quantity: 90 tablet clobetasoL 0.05 % scalp solution Commonly known as: TEMOVATE * DULoxetine 30 MG capsule Commonly known as: CYMBALTA Take 1 (one) capsule (30 mg total) by mouth daily Total of 90 mg with 60 mg prescription . Quantity: 30 capsule * DULoxetine 60 MG capsule Commonly known as: CYMBALTA Take 1 (one) capsule (60 mg total) by mouth daily Total 90 mg daily . Quantity: 90 capsule fexofenadine 180 MG tablet Commonly known as: ARIELLA Take 1 (one) tablet (180 mg total) by mouth . fluticasone propionate 50 mcg/actuation nasal spray Commonly known as: FLONASE Instill 1 (one) spray into each nostril daily . Quantity: 16 g furosemide 40 MG tablet Commonly known as: LASIX Take 1 (one) tablet (40 mg total) by mouth 2 (two) times a day . ipratropium-albuteroL 0.5-2.5 mg/3 ml nebulizer Commonly known as: DUO-NEB Take 3 mL by nebulization 3 (three) times a day . Quantity: 270 mL levothyroxine 75 MCG tablet Commonly known as: SYNTHROID, LEVOTHROID Take 1 (one) tablet (75 mcg total) by mouth daily . meclizine 25 mg tablet Commonly known as: ANTIVERT Take 1 (one) tablet (25 mg total) by mouth 3 (three) times a day as needed for nausea . Quantity: 30 tablet montelukast 10 mg tablet Commonly known as: SINGULAIR Take 1 tablet (10 mg total) by mouth daily. Quantity: 90 tablet NONFORMULARY CPAP 9cm H20 (DASCO) in [facility] ondansetron 4 MG disintegrating tablet Commonly known as: ZOFRAN-ODT Dissolve 1 (one) tablet (4 mg total) on top of tongue every 6 to 8 hours as needed for nausea . Quantity: 20 tablet pantoprazole 40 MG tablet Commonly known as: PROTONIX Take by mouth . potassium chloride 10 MEQ CR capsule Commonly known as: MICRO-K Take 1 (one) capsule (10 mEq total) by mouth daily . Quantity: 90 capsule simvastatin 40 MG tablet Commonly known as: ZOCOR Take 1 (one) tablet (40 mg total) by mouth daily . Quantity: 90 tablet SUMAtriptan 50 MG tablet Commonly known as: IMITREX Take 1 (one) tablet (50 mg total) by mouth every 2 (two) hours as needed for migraine Max of 200 mg in 24hrs, do not treat more than 3 times a week . Quantity: 10 tablet * Trelegy Ellipta 200-62.5-25 mcg Dsdv Generic drug: hmfcgfngvcv-fpfjenjqc-nwlukscb Inhale 1 (one) Inhalation. daily . Quantity: 28 each * Trelegy Ellipta 200-62.5-25 mcg Dsdv Generic drug: tgjkntbifxo-zznmunahd-ihnrcnmm Inhale 1 (one) Inhalation. daily . Quantity: 28 each * There are duplicate medications prescribed to the patient Physician(s) Follow Up: Jens Ibanez MD [address] [facility] [id number] Schedule an appointment as soon as possible for a visit Sara Alvarez MD [address] [id number] Follow up As needed Condition at Discharge: Stable Disposition: Home I reviewed discharge recommendations with the patient in person. Patient instructions, including activity, were given to the patient/family at discharge. On day of discharge I saw Lola Saucedodebraalycia and spent: > 30 minutes on discharge. Completed by: Kim Lyons CNP on 10/20/24, 2:11 PM documented in this encounter [facility] 10-20-2024 History of Present illness Narrative Spiritual Care Progress Note Completed by: Angélica Carias Person(s) Present During this Visit: Patient Not Available Time Spent in Direct Patient Care: 5 Narrative: Drum Maker attempted to visit the pt while rounding on the unit. Pt was not in her room at that time. Drum Maker will visit as time allows and remains available upon request. Patients Response to Pastoral Care: Timing of Visit Not Optimal. Visit Rescheduled Planning for Future Visits: PRN 10/20/24 1300 Visit Background Visit With Patient Not Available Visit By Staff Drum Maker Visit Progression Attempt Visit Requested By Drum Maker Initiated Visit Source Drum Maker Initiated Visit Type Inpatient;Rounding Visit Circumstances and Events Routine Visit Visit Length (minutes) 5 Patient's Response to Pastoral Care Timing of Visit Not Optimal. Visit Rescheduled Visit Planning PRN Spiritual Assessment Not assessed during visit Mosque Assessment Not assessed during this visit Family assessment provided? Not assessed during this visit Angléica Carias MA Staff Drum Maker Pastoral Care Department [facility] [phone] On-call documented in this encounter [facility] 10-20-2024 Consult note Associated Order (s): IP CONSULT TO CARE MANAGEMENT Care Management Consult Note Date: 10/20/2024 Time: 8:26 AM Patient Name: Lola Drew Date of : 1950 Reason for Consult: Discharge planning Discharge Plan: Plan A: Home Discharging Transportation Plan: Discharge Plan Status: CM consult completed yesterday in the ED by talent development managerSalome RN- see her note. Pt denies needs. 1421- Pt discharge orders are in for pt to return home today. No needs identified. Assessment and Background Information: Living Arrangements: Spouse/significant other Caregiver Identified: No Support Systems: Spouse/significant other Assistance Needed: none Type of Residence: Private residence Prior to Admission Home Care Services: No Current Home Equipment: None Holistic Assessment Medication adherence problem:: No History of falls in last 6 months:: No Family aware of the patient's advance care planning wishes:: Yes Do you have any cultural/spiritual connections or beliefs that would impact how we deliver your care?: No Chronic pain:: No (right hand hurts with weather changes) [facility] 10-20-2024 Consult note Associated Order (s): IP CONSULT TO CARE MANAGEMENT Care Management Consult Note Date: 10/20/2024 Time: 8:26 AM Patient Name: Lola Drew Date of : 1950 Reason for Consult: Discharge planning Discharge Plan: Plan A: Home Discharging Transportation Plan: Discharge Plan Status: CM consult completed yesterday in the ED by talent development managerSalome RN- see her note. Pt denies needs. 1421- Pt discharge orders are in for pt to return home today. No needs identified. Assessment and Background Information: Living Arrangements: Spouse/significant other Caregiver Identified: No Support Systems: Spouse/significant other Assistance Needed: none Type of Residence: Private residence Prior to Admission Home Care Services: No Current Home Equipment: None Holistic Assessment Medication adherence problem:: No History of falls in last 6 months:: No Family aware of the patient's advance care planning wishes:: Yes Do you have any cultural/spiritual connections or beliefs that would impact how we deliver your care?: No Chronic pain:: No (right hand hurts with weather changes) Care Management Consult Note Date: 10/19/2024 Time: 12:41 PM Patient Name: Lola Drew Date of : 1950 Reason for Consult: Discharge Plan: Plan A: Home Discharging Transportation Plan: Discharge Plan Status: TBD Assessment and Background Information: Patient presented to the ED from [facility] with chest pain. Labs and x-rays completed in the ED. Patient stated that her PCP is Dr. Palacios and that her insurance is [employer]. Patient stated that she lives in a 2 story home that she only uses the main floor of the home that has 2 steps to get into the home. Patient stated that she lives with her and daughter lives upstairs. Patient stated that she is compliant with her medications and that she has no insecurities with food/ medical to report. Patient stated that there are no services int he home at this time. Patient stated that she has not had any falls in the last 6 months and that she still drives. Patient stated that she does not drink but she vapes daily. Patient wears a c-pap at night, but no 02. Patient is independent with all her ADL's. Patient stated that her family is aware of her wishes and that she does not report chronic pain but does have pain in her right hand. No additional needs verbalized at this time, patient will be moved to the medical floor for further treatment. CM to follow. Living Arrangements: Spouse/significant other, Children Support Systems: Spouse/significant other, Children Type of Residence: Private residence Prior to Admission Home Care Services: No Current Home Equipment: None Holistic Assessment Medication adherence problem:: No History of falls in last 6 months:: No Family aware of the patient's advance care planning wishes:: Yes Do you have any cultural/spiritual connections or beliefs that would impact how we deliver your care?: No Chronic pain:: No (right hand hurts with weather changes) documented in this encounter [facility] 10-20-2024 Plan of care note Problem: Actual or potential alteration in health Goal: Absence of healthcare acquired conditions Outcome: Partially Met Goal: Knowledge of Interdisciplinary Plan of Care Outcome: Partially Met Goal: Knowledge of Enviroment Outcome: Partially Met [facility] 10-19-2024 Plan of care note Problem: Actual or potential alteration in health Goal: Absence of healthcare acquired conditions Outcome: Partially Met Goal: Knowledge of Interdisciplinary Plan of Care Outcome: Partially Met Goal: Knowledge of Enviroment Outcome: Partially Met [facility] 10-19-2024 Consult note Formatting of th is note might be different from the original. Care Management Consult Note Date: 10/19/2024 Time: 12:41 PM Patient Name: Lola Drew Date of : 1950 Reason for Consult: Discharge Plan: Plan A: Home Discharging Transportation Plan: Discharge Plan Status: TBD Assessment and Background Information: Patient presented to the ED from [facility] with chest pain. Labs and x-rays completed in the ED. Patient stated that her PCP is Dr. Palacios and that her insurance is [employer]. Patient stated that she lives in a 2 story home that she only uses the main floor of the home that has 2 steps to get into the home. Patient stated that she lives with her and daughter lives upstairs. Patient stated that she is compliant with her medications and that she has no insecurities with food/ medical to report. Patient stated that there are no services int he home at this time. Patient stated that she has not had any falls in the last 6 months and that she still drives. Patient stated that she does not drink but she vapes daily. Patient wears a c-pap at night, but no 02. Patient is independent with all her ADL's. Patient stated that her family is aware of her wishes and that she does not report chronic pain but does have pain in her right hand. No additional needs verbalized at this time, patient will be moved to the medical floor for further treatment. CM to follow. Living Arrangements: Spouse/significant other, Children Support Systems: Spouse/significant other, Children Type of Residence: Private residence Prior to Admission Home Care Services: No Current Home Equipment: None Holistic Assessment Medication adherence problem:: No History of falls in last 6 months:: No Family aware of the patient's advance care planning wishes:: Yes Do you have any cultural/spiritual connections or beliefs that would impact how we deliver your care?: No Chronic pain:: No (right hand hurts with weather changes) [facility] 10-19-2024 History and physical note [facility] [place] [facility] Patient Name: Lola Drew : 1950 MR #: [id number] Admit Date: 10/19/2024 Physicians: Sara Alvarez MD (Family); No ref. provider found (Referring) oLla Drew is a 74 y.o. 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 Angina History of DVT / PE 07/2024 Pulmonary HTN HFpEF ECHO 07/25/2024 - Enlarged RV with reduced RV function, EF 81%, pulmonary HTN CXR - no acute processes TSH 1.38 Lipid profile - unremarkable Trop 8 , trend Heart score - 4 Continue Eliquis Nitroglycerin prn Repeat ECHO COPD Not in acute exacerbation Continue Singulair, Duo-Neb, Spriva, Dulera, albuerol prn GERD Continue Protonix Hypothyroidism Continue Synthroid HLD Continue statin Depression Continue duloxetine , Wellbutrin Residence prior to admission: house or apartment Was patient transferred from outlying hospital or ED no Quality Measures DVT Prophylaxis: eliquis Cannon Catheter: absent Medication Reconciliation: Verified Admitted with these risk variables:Pulmonary Hypertension and CHF. Please see assessment and plan for further details. Estimated Date of Discharge less than 2 midnights Code Status Full, unverified Chief Complaint Chest pain History of Present Illness Lola is a 74 y/o female with a past medical history significant for COPD, hyperlipidemia, hypothyroidism, GERD, depression and a history of DVT/PE on Eliquis in July 2024. As a result of the PE the patient was also diagnosed with severe pulmonary HTN and RV dysfunction The patient presented to [facility] today after experiencing chest pain prior to cataract removal surgery this AM at [facility]. The patient reports chest pain that start at rest with radiation to her jaw. This has since resolved. Currently she denies chest pain or shortness of breath. Past Medical History Past Medical History: Diagnosis Date Asthma Bronchitis Colitis COPD (chronic obstructive pulmonary disease) (HCC) Depression GERD (gastroesophageal reflux disease) Hypercholesterolemia Insomnia Obstructive sleep apnea Osteopenia Vitamin D deficiency Past Surgical History Past Surgical History: Procedure Laterality Date APPENDECTOMY CT COLONOSCOPY 05/18/2019 CT COLONOSCOPY FINGER SURGERY Bilateral 11/03/2009 thumb FOOT SURGERY HYSTERECTOMY (CERVIX REMAINS) NASAL SEPTUM SURGERY 1989 possibly TONSILLECTOMY AND ADENOIDECTOMY Family History Family History Problem Relation Age of Onset Other (unknown cancer) Mother Heart attack Father age 54 Asthma Father Unknown Sister Social History Social History Tobacco Use Smoking Status Former Current packs/day: 0.00 Average packs/day: 1 pack/day for 44.0 years (44.0 ttl pk-yrs) Types: Cigarettes Start date: 03/03/1971 Quit date: 03/03/2015 Years since quittin.6 Smokeless Tobacco Not on file Tobacco Comments 1 ppd for 44 years, quit March 2015 Social History Substance and Sexual Activity Alcohol Use Not Currently Comment: 1 drink per year Social History Substance and Sexual Activity Drug Use No Allergy Information I have reviewed the patient's allergies. Amoxicillin, Bee venom protein (honey bee), Sulfa (sulfonamide antibiotics), and Penicillins Home Medications Home medications were reviewed. Review Of Systems All relevant systems have been reviewed and are negative except as noted in HPI or below Physical Examination BP (!) 144/72 Pulse (!) 58 Temp 97.4 F (36.3 C) (Oral) Resp 17 Ht 5' 4 Wt 108.9 kg (240 lb) SpO2 95% BMI 41.20 kg/m General Appearance: alert; well appearing; in no acute distress HEENT: Head- normocephalic; Eyes- EOMI, sclera anicteric; Throat- mucous membranes moist Cardiovascular: regular rate and rhythm; normal S1, S2; no murmurs, rubs, clicks or gallops; peripheral edema absent Respiratory: lungs clear to auscultation; without wheezes, rales or rhonchi; on room air Abdomen: soft, non-tender, non-distended Neurological: oriented x 3; normal speech; no focal findings or movement disorder noted Musculoskeletal: no significant deformity or tenderness to palpation Skin: normal coloration Psych: normal mood and affect Cosigned by Boby Augustin MD at 10/19/2024 12:47 PM EST Associated attestation - Boby Augustin MD - 10/19/2024 12:47 PM EST [facility] [place]ENDUM I saw and examined the patient independently of the NITIN . Labs, medications, imaging and other studies were reviewed. I agree with history, physical examination findings, medical decision making and the assessment/plan with additions as noted in my documentation below. [facility] Patient was at a procedural/surgical appointment for her eyes when she developed and heavy...crampy pain in the anterior chest radiating up into her left and right neck intermittently. No feels back to normal. Denies any similar prior episodes. No N/V, diaphoresis, cough, wheezing, shortness of breath, syncope. No prior heart disease. No prior heart stents or procedures. Physical Examination General Appearance: alert; well appearing; in no acute distress HEENT: Head- normocephalic; Eyes- EOMI, sclera anicteric; Ears- hearing intact; Nose- no nasal discharge; Throat- mucous membranes moist Cardiovascular: regular rate and rhythm; normal S1, S2; no murmurs, rubs, clicks or gallops; no peripheral edema Respiratory: lungs clear to auscultation; without wheezes, rales or rhonchi; on room air Abdomen: soft, non-tender, non-distended; positive bowel sounds Neurological: oriented x 3; normal speech; no focal findings or movement disorder noted Musculoskeletal: no significant deformity or tenderness to palpation Skin: normal coloration; no obvious rashes, lesions or skin breakdown Psych: normal mood and affect Assessment/Plan Chest pain Chronic CHFpEF HLD DVT/PE 07/2024 COPD GERD Hypothyroidism Depression Obesity, BMI 41.2 Trend troponin Cardiac monitoring Eliquis, ASA, atorvastatin Echo Risk stratification with CCTA (would also r/o PE) vs stress test if troponin remains normal [facility] 10-19-2024 History and physical note [facility] [place] [facility] Patient Name: Lola Drew : 1950 MR #: [id number] Admit Date: 10/19/2024 Physicians: Sara Alvarez MD (Family); No ref. provider found (Referring) Lola Drew is a 74 y.o. 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 Angina History of DVT / PE 07/2024 Pulmonary HTN HFpEF ECHO 07/25/2024 - Enlarged RV with reduced RV function, EF 81%, pulmonary HTN CXR - no acute processes TSH 1.38 Lipid profile - unremarkable Trop 8 , trend Heart score - 4 Continue Eliquis Nitroglycerin prn Repeat ECHO COPD Not in acute exacerbation Continue Singulair, Duo-Neb, Spriva, Dulera, albuerol prn GERD Continue Protonix Hypothyroidism Continue Synthroid HLD Continue statin Depression Continue duloxetine , Wellbutrin Residence prior to admission: house or apartment Was patient transferred from outlying hospital or ED no Quality Measures DVT Prophylaxis: eliquis Cannon Catheter: absent Medication Reconciliation: Verified Admitted with these risk variables:Pulmonary Hypertension and CHF. Please see assessment and plan for further details. Estimated Date of Discharge less than 2 midnights Code Status Full, unverified Chief Complaint Chest pain History of Present Illness Lola is a 74 y/o female with a past medical history significant for COPD, hyperlipidemia, hypothyroidism, GERD, depression and a history of DVT/PE on Eliquis in July 2024. As a result of the PE the patient was also diagnosed with severe pulmonary HTN and RV dysfunction The patient presented to [facility] today after experiencing chest pain prior to cataract removal surgery this AM at [facility]. The patient reports chest pain that start at rest with radiation to her jaw. This has since resolved. Currently she denies chest pain or shortness of breath. Past Medical History Past Medical History: Diagnosis Date Asthma Bronchitis Colitis COPD (chronic obstructive pulmonary disease) (HCC) Depression GERD (gastroesophageal reflux disease) Hypercholesterolemia Insomnia Obstructive sleep apnea Osteopenia Vitamin D deficiency Past Surgical History Past Surgical History: Procedure Laterality Date APPENDECTOMY CT COLONOSCOPY 05/18/2019 CT COLONOSCOPY FINGER SURGERY Bilateral 11/03/2009 thumb FOOT SURGERY HYSTERECTOMY (CERVIX REMAINS) NASAL SEPTUM SURGERY 1989 possibly TONSILLECTOMY AND ADENOIDECTOMY Family History Family History Problem Relation Age of Onset Other (unknown cancer) Mother Heart attack Father age 54 Asthma Father Unknown Sister Social History Social History Tobacco Use Smoking Status Former Current packs/day: 0.00 Average packs/day: 1 pack/day for 44.0 years (44.0 ttl pk-yrs) Types: Cigarettes Start date: 03/03/1971 Quit date: 03/03/2015 Years since quittin.6 Smokeless Tobacco Not on file Tobacco Comments 1 ppd for 44 years, quit March 2015 Social History Substance and Sexual Activity Alcohol Use Not Currently Comment: 1 drink per year Social History Substance and Sexual Activity Drug Use No Allergy Information I have reviewed the patient's allergies. Amoxicillin, Bee venom protein (honey bee), Sulfa (sulfonamide antibiotics), and Penicillins Home Medications Home medications were reviewed. Review Of Systems All relevant systems have been reviewed and are negative except as noted in HPI or below Physical Examination BP (!) 144/72 Pulse (!) 58 Temp 97.4 F (36.3 C) (Oral) Resp 17 Ht 5' 4 Wt 108.9 kg (240 lb) SpO2 95% BMI 41.20 kg/m General Appearance: alert; well appearing; in no acute distress HEENT: Head- normocephalic; Eyes- EOMI, sclera anicteric; Throat- mucous membranes moist Cardiovascular: regular rate and rhythm; normal S1, S2; no murmurs, rubs, clicks or gallops; peripheral edema absent Respiratory: lungs clear to auscultation; without wheezes, rales or rhonchi; on room air Abdomen: soft, non-tender, non-distended Neurological: oriented x 3; normal speech; no focal findings or movement disorder noted Musculoskeletal: no significant deformity or tenderness to palpation Skin: normal coloration Psych: normal mood and affect Cosigned by Boby Augustin MD at 10/19/2024 12:47 PM EST Associated attestation - Boby Augustin MD - 10/19/2024 12:47 PM EST HMS NOTE ADDENDUM I saw and examined the patient independently of the NITIN . Labs, medications, imaging and other studies were reviewed. I agree with history, physical examination findings, medical decision making and the assessment/plan with additions as noted in my documentation below. HPI Patient was at a procedural/surgical appointment for her eyes when she developed and heavy...crampy pain in the anterior chest radiating up into her left and right neck intermittently. No feels back to normal. Denies any similar prior episodes. No N/V, diaphoresis, cough, wheezing, shortness of breath, syncope. No prior heart disease. No prior heart stents or procedures. Physical Examination General Appearance: alert; well appearing; in no acute distress HEENT: Head- normocephalic; Eyes- EOMI, sclera anicteric; Ears- hearing intact; Nose- no nasal discharge; Throat- mucous membranes moist Cardiovascular: regular rate and rhythm; normal S1, S2; no murmurs, rubs, clicks or gallops; no peripheral edema Respiratory: lungs clear to auscultation; without wheezes, rales or rhonchi; on room air Abdomen: soft, non-tender, non-distended; positive bowel sounds Neurological: oriented x 3; normal speech; no focal findings or movement disorder noted Musculoskeletal: no significant deformity or tenderness to palpation Skin: normal coloration; no obvious rashes, lesions or skin breakdown Psych: normal mood and affect Assessment/Plan Chest pain Chronic CHFpEF HLD DVT/PE 07/2024 COPD GERD Hypothyroidism Depression Obesity, BMI 41.2 Trend troponin Cardiac monitoring Eliquis, ASA, atorvastatin Echo Risk stratification with CCTA (would also r/o PE) vs stress test if troponin remains normal documented in this encounter [facility] 10-19-2024 Emergency department Triage note Pt sent by [facility] after experiencing chest discomfort prior to surgery. Pt was recommended to visit ED. Reports hx of DVTs and currently has a DVT in leg, no cardiac hx. [facility] 10-19-2024 Emergency department Note Pt sent by [facility] after experiencing chest discomfort prior to surgery. Pt was recommended to visit ED. Reports hx of DVTs and currently has a DVT in leg, no cardiac hx. Bed: 14 Expected date: Expected time: Means of arrival: Comments: NEXT 2 documented in this encounter [facility] 10-19-2024 Emergency department Note Bed: 14 Expected date: Expected time: Means of arrival: Comments: NEXT 2 [facility] 10-18-2024 Note [facility] INTERVENTIONAL CARDIOLOGY CLINIC NOTE HISTORY OF PRESENT ILLNESS Mrs. Lola Drew is a 74 y.o. pleasant female with VTE with PE and DVT and RV dysfunction with pulm hypertension who is here to establish outpatient cardiac care. Patient's medical comorbidity also includes JOHNATHAN on CPAP, COPD, GERD, and depression Lola presents in the company of her , Pantera, who is also my patient. She was hospitalized back in July 2024 with shortness of breath and found to have PE and DVT. CTA showed pulmonary embolism and segmental and subsegmental vessels. Her DVT was below the knee. She was saturating well on room air and heparin therapy was recommended. Today, she tells me that she has been back to her baseline. She does not report any exertional symptoms. Her only complaint is right leg swelling which she uses compression socks. She denies angina, dyspnea, nocturnal dyspnea, weight gain, palpitation, presyncope, or syncope. She also reports tolerance to oral anticoagulation therapy. Echocardiogram updated in July 2024 revealed enlarged RV was reduced function. RVSP estimated to be 68 mmHg. LVEF was 81% with normal diastolic function. Mild TR was noted. Lower extremity ultrasound repeated in September 2024 revealed right mid peroneal vein DVT. This is unchanged compared to the study done in July. Current Outpatient Medications Medication Instructions albuterol 90 mcg/actuation inhaler 2 puffs, Every 6 hours PRN apixaban (ELIQUIS) 5 mg, Oral, 2 times daily buPROPion (WELLBUTRIN XL) 300 mg, Oral, Daily clobetasoL (TEMOVATE) 0.05 % scalp solution No dose, route, or frequency recorded. DULoxetine (CYMBALTA) 30 mg, Oral, Daily, Total of 90 mg with 60 mg prescription DULoxetine (CYMBALTA) 60 mg, Oral, Daily, Total 90 mg daily fexofenadine (ARIELLA) 180 MG tablet 1 tablet fluticasone propionate (FLONASE) 50 mcg/actuation nasal spray 1 spray, Nasal, Daily sbmkiyhosyd-bbjgakwtw-puoekqox (Trelegy Ellipta) 200-62.5-25 mcg DsDv 1 Inhalation., Inhalation, Daily ddnkqhkeutv-pbluhbgsu-cbyiyaul (Trelegy Ellipta) 200-62.5-25 mcg DsDv 1 Inhalation., Inhalation, Daily furosemide (LASIX) 40 mg, 2 times daily ipratropium-albuteroL (DUO-NEB) 0.5-2.5 mg/3 ml nebulizer 3 mL, Nebulization, 3 times daily (RT) levothyroxine (SYNTHROID, LEVOTHROID) 75 MCG tablet 1 tablet, Daily meclizine (ANTIVERT) 25 mg, Oral, 3 times daily PRN montelukast (SINGULAIR) 10 mg, Oral, Daily NONFORMULARY CPAP 9cm H20 (DASCO) in [facility] ondansetron (ZOFRAN-ODT) 4 mg, Oral, Every 6 to 8 hours as needed pantoprazole (PROTONIX) 40 MG tablet Take by mouth . potassium chloride (MICRO-K) 10 MEQ CR capsule 10 mEq, Oral, Daily simvastatin (ZOCOR) 40 mg, Oral, Daily SUMAtriptan (IMITREX) 50 mg, Oral, Every 2 hour PRN, Max of 200 mg in 24hrs, do not treat more than 3 times a week CARDIOVASCULAR & METABOLIC PROBLEMS Venous thromboembolic disease Severe pulm hypertension RV dysfunction Hyperlipidemia ASSESSMENT & PLAN: 74-year-old lady with intermediate risk PE with segmental and subsegmental involvement which was treated medically. She also had below-knee DVT which remained unchanged on subsequent study. She is currently on DOAC which she need to remain on indefinitely as tolerated. 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 Prior echo revealed severe pulm hypertension with RV dysfunction with unknown baseline. She had underlying COPD and JOHNATHAN on CPAP. Today, she is NYHA class I and euvolemic on exam. Resting rate/pressure product is optimal. We need to update her echocardiogram to reevaluate RV function and pulmonary pressures. She is on low-dose with Plavix. Obtain echocardiogram Continue DOAC indefinitely Continue compression socks RTC in 6 months CARDIAC DIAGNOSTICS ECG (I independently reviewed EKG and revealed, 07/24/2024): Normal sinus rhythm. Rate: 65. I personally reviewed other available cardiac imagings (i.e. echo) and summarized findings above. OBJECTIVES BP 125/85 (BP Location: Left arm, Patient Position: Sitting, BP Cuff Size: Adult) Pulse 65 Ht 5' 4 Wt 109.3 kg (241 lb) SpO2 95% BMI 41.37 kg/m General Appearance: healthy-looking pleasant lady. Not in acute distress Respiratory: good air entry bilaterally. No wheeze or crackles. Cardiovascular: good peripheral pulses. JVP is flat. Regular rate and rhythm. Normal S1-S2. No murmur/gallop/rub. Abdomen: soft. Non-tender. Non-distended. DIPAK: +1 right lower extremity pitting edema. Skin: no rash. No cyanosis. No clubbing of fingers. Jens Ibanez MD, FACC, [facility] Interventional Cardiology/Structural Heart Disease [facility] AUTHENTICATED BY JENS IBANEZ, ON 10/18/2024 10:35:22 [facility] 10-18-2024 History of Present illness Narrative [facility] INTERVENTIONAL CARDIOLOGY CLINIC NOTE HISTORY OF PRESENT ILLNESS Mrs. Lola Drew is a 74 y.o. pleasant female with VTE with PE and DVT and RV dysfunction with pulm hypertension who is here to establish outpatient cardiac care. Patient's medical comorbidity also includes JOHNATHAN on CPAP, COPD, GERD, and depression Lola presents in the company of her , Pantera, who is also my patient. She was hospitalized back in July 2024 with shortness of breath and found to have PE and DVT. CTA showed pulmonary embolism and segmental and subsegmental vessels. Her DVT was below the knee. She was saturating well on room air and heparin therapy was recommended. Today, she tells me that she has been back to her baseline. She does not report any exertional symptoms. Her only complaint is right leg swelling which she uses compression socks. She denies angina, dyspnea, nocturnal dyspnea, weight gain, palpitation, presyncope, or syncope. She also reports tolerance to oral anticoagulation therapy. Echocardiogram updated in July 2024 revealed enlarged RV was reduced function. RVSP estimated to be 68 mmHg. LVEF was 81% with normal diastolic function. Mild TR was noted. Lower extremity ultrasound repeated in September 2024 revealed right mid peroneal vein DVT. This is unchanged compared to the study done in July. Current Outpatient Medications Medication Instructions albuterol 90 mcg/actuation inhaler 2 puffs, Every 6 hours PRN apixaban (ELIQUIS) 5 mg, Oral, 2 times daily buPROPion (WELLBUTRIN XL) 300 mg, Oral, Daily clobetasoL (TEMOVATE) 0.05 % scalp solution No dose, route, or frequency recorded. DULoxetine (CYMBALTA) 30 mg, Oral, Daily, Total of 90 mg with 60 mg prescription DULoxetine (CYMBALTA) 60 mg, Oral, Daily, Total 90 mg daily fexofenadine (ARIELLA) 180 MG tablet 1 tablet fluticasone propionate (FLONASE) 50 mcg/actuation nasal spray 1 spray, Nasal, Daily lptjbeoacqe-xtghcbvai-mqhzgwem (Trelegy Ellipta) 200-62.5-25 mcg DsDv 1 Inhalation., Inhalation, Daily pzduzrqpvlg-errrfmomx-aelyalaf (Trelegy Ellipta) 200-62.5-25 mcg DsDv 1 Inhalation., Inhalation, Daily furosemide (LASIX) 40 mg, 2 times daily ipratropium-albuteroL (DUO-NEB) 0.5-2.5 mg/3 ml nebulizer 3 mL, Nebulization, 3 times daily (RT) levothyroxine (SYNTHROID, LEVOTHROID) 75 MCG tablet 1 tablet, Daily meclizine (ANTIVERT) 25 mg, Oral, 3 times daily PRN montelukast (SINGULAIR) 10 mg, Oral, Daily NONFORMULARY CPAP 9cm H20 (DASCO) in [facility] ondansetron (ZOFRAN-ODT) 4 mg, Oral, Every 6 to 8 hours as needed pantoprazole (PROTONIX) 40 MG tablet Take by mouth . potassium chloride (MICRO-K) 10 MEQ CR capsule 10 mEq, Oral, Daily simvastatin (ZOCOR) 40 mg, Oral, Daily SUMAtriptan (IMITREX) 50 mg, Oral, Every 2 hour PRN, Max of 200 mg in 24hrs, do not treat more than 3 times a week CARDIOVASCULAR & METABOLIC PROBLEMS Venous thromboembolic disease Severe pulm hypertension RV dysfunction Hyperlipidemia ASSESSMENT & PLAN: 74-year-old lady with intermediate risk PE with segmental and subsegmental involvement which was treated medically. She also had below-knee DVT which remained unchanged on subsequent study. She is currently on DOAC which she need to remain on indefinitely as tolerated. 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 Prior echo revealed severe pulm hypertension with RV dysfunction with unknown baseline. She had underlying COPD and JOHNATHAN on CPAP. Today, she is NYHA class I and euvolemic on exam. Resting rate/pressure product is optimal. We need to update her echocardiogram to reevaluate RV function and pulmonary pressures. She is on low-dose with Plavix. Obtain echocardiogram Continue DOAC indefinitely Continue compression socks RTC in 6 months CARDIAC DIAGNOSTICS ECG (I independently reviewed EKG and revealed, 07/24/2024): Normal sinus rhythm. Rate: 65. I personally reviewed other available cardiac imagings (i.e. echo) and summarized findings above. OBJECTIVES BP 125/85 (BP Location: Left arm, Patient Position: Sitting, BP Cuff Size: Adult) Pulse 65 Ht 5' 4 Wt 109.3 kg (241 lb) SpO2 95% BMI 41.37 kg/m General Appearance: healthy-looking pleasant lady. Not in acute distress Respiratory: good air entry bilaterally. No wheeze or crackles. Cardiovascular: good peripheral pulses. JVP is flat. Regular rate and rhythm. Normal S1-S2. No murmur/gallop/rub. Abdomen: soft. Non-tender. Non-distended. DIPAK: +1 right lower extremity pitting edema. Skin: no rash. No cyanosis. No clubbing of fingers. Jens Ibanez MD, FAC, [facility] Interventional Cardiology/Structural Heart Disease [facility] documented in this encounter [facility] 10-18-2024 Instructions Allen Das RN - 10/18/2024 10:14 AM EST How to contact your Care Team: Provider: Jens Ibanez MD Nurse: Allen DUVALL, RN Vice President Of Customer Service: Ofelia Ballard MA In case of an emergency please call 911. REFILLS: When in need for refills please call your care team or the office at [phone]. Please include medication name, pharmacy name, and specify 30-day or 90-day supply. Please check with your pharmacy within 24 hours of request for your refill. You must follow up as directed to continue current refills. Thank you! documented in this encounter [facility] 09-16-2024 History of Present illness Narrative Images from the original note were not included. Subjective Patient ID: Lola Drew is a 74 y.o. female. Chief Complaint Patient presents with Cough Congestion SOB x 1 month HPI Lola is a 74 year old female comes to office for productive cough with and green sputum, nasal congestion, rhinorrhea, headaches, sinus pressure, sinus congestion. States her symptoms have been going on for about a month. She called into office 2 weeks ago, and was told it was likely viral infection, therefore she has been using xuml-qwj-tuocvnq symptomatic treatment. She states she went to have cataract removed today and the eye center sent her home due to her cough. Patient did have right eye dilated this morning and was given Valium. She does have past medical history of COPD with asthma, allergic rhinitis, DVT and PE. She is currently managed on Trelegy, Eliquis, albuterol HFA and nebulizer treatments as well as Singulair and ariella. States she did have family at home with similar symptoms, all of which have improved over time yet she has not. The following portions of the patient's history were reviewed and updated as appropriate: allergies, current medications, past family history, past medical history, past social history, past surgical history, and problem list. Past Medical History: Diagnosis Date Asthma Bronchitis Colitis COPD (chronic obstructive pulmonary disease) (HCC) Depression GERD (gastroesophageal reflux disease) Hypercholesterolemia Insomnia Obstructive sleep apnea Osteopenia Vitamin D deficiency Past Surgical History: Procedure Laterality Date APPENDECTOMY CT COLONOSCOPY 05/18/2019 CT COLONOSCOPY FINGER SURGERY Bilateral 11/03/2009 thumb FOOT SURGERY HYSTERECTOMY (CERVIX REMAINS) NASAL SEPTUM SURGERY 1989 possibly TONSILLECTOMY AND ADENOIDECTOMY Social History Tobacco Use Smoking status: Former Current packs/day: 0.00 Average packs/day: 1 pack/day for 44.0 years (44.0 ttl pk-yrs) Types: Cigarettes Start date: 03/03/1971 Quit date: 03/03/2015 Years since quittin.5 Tobacco comments: 1 ppd for 44 years, quit March 2015 Vaping Use Vaping status: Every Day Substances: Nicotine, Flavoring Devices: Disposable Substance Use Topics Alcohol use: Not Currently Comment: 1 drink per year Drug use: No Family History Problem Relation Age of Onset Other (unknown cancer) Mother Heart attack Father age 54 Asthma Father Unknown Sister Allergies Allergen Reactions Amoxicillin Bee Venom Protein (Honey Bee) Swelling Sulfa (Sulfonamide Antibiotics) Penicillins Rash Outpatient Medications as of 09/16/2024 Medication Sig albuterol 90 mcg/actuation inhaler Inhale 2 (two) puffs every 6 (six) hours as needed for wheezing . apixaban (Eliquis) 5 mg Tab Take 1 (one) tablet (5 mg total) by mouth 2 (two) times a day . buPROPion (WELLBUTRIN XL) 300 MG 24 hr tablet Take 1 (one) tablet (300 mg total) by mouth daily . clobetasoL (TEMOVATE) 0.05 % scalp solution DULoxetine (CYMBALTA) 30 MG capsule Take 1 (one) capsule (30 mg total) by mouth daily Total of 90 mg with 60 mg prescription . DULoxetine (CYMBALTA) 60 MG capsule Take 1 (one) capsule (60 mg total) by mouth daily Total 90 mg daily . fexofenadine (AREILLA) 180 MG tablet Take 1 (one) tablet (180 mg total) by mouth . fluticasone propionate (FLONASE) 50 mcg/actuation nasal spray Instill 1 (one) spray into each nostril daily . furosemide (LASIX) 40 MG tablet Take 1 (one) tablet (40 mg total) by mouth 2 (two) times a day . ipratropium-albuteroL (DUO-NEB) 0.5-2.5 mg/3 ml nebulizer Take 3 mL by nebulization 3 (three) times a day . levothyroxine (SYNTHROID, LEVOTHROID) 75 MCG tablet Take 1 (one) tablet (75 mcg total) by mouth daily . montelukast (SINGULAIR) 10 mg tablet Take 1 tablet (10 mg total) by mouth daily. NONFORMULARY CPAP 9cm H20 (DASCO) in [facility] potassium chloride (MICRO-K) 10 MEQ CR capsule Take 1 (one) capsule (10 mEq total) by mouth daily . simvastatin (ZOCOR) 40 MG tablet Take 1 (one) tablet (40 mg total) by mouth daily . [DISCONTINUED] lzkqvxwhbtp-drdkyzrkh-lzxufacy (Trelegy Ellipta) 200-62.5-25 mcg DsDv Inhale 1 puff daily . meclizine (ANTIVERT) 25 mg tablet Take 1 (one) tablet (25 mg total) by mouth 3 (three) times a day as needed for nausea . ondansetron (ZOFRAN-ODT) 4 MG disintegrating tablet Dissolve 1 (one) tablet (4 mg total) on top of tongue every 6 to 8 hours as needed for nausea . pantoprazole (PROTONIX) 40 MG tablet Take by mouth . SUMAtriptan (IMITREX) 50 MG tablet Take 1 (one) tablet (50 mg total) by mouth every 2 (two) hours as needed for migraine Max of 200 mg in 24hrs, do not treat more than 3 times a week . Review of Systems HENT: Positive for congestion, ear pain, postnasal drip, rhinorrhea, sinus pressure and sinus pain. Negative for ear discharge, mouth sores, nosebleeds, sore throat, trouble swallowing and voice change. Eyes: Right eye currently dilated d/t possible cataract removal this AM, therefore she is having some blurry vision in her right eye Respiratory: Positive for cough, shortness of breath and wheezing. Negative for choking. Cardiovascular: Negative for chest pain and palpitations. Gastrointestinal: Negative. Genitourinary: Negative. Neurological: Positive for headaches. Psychiatric/Behavioral: Negative. Objective BP (!) 148/92 (BP Location: Left arm, Patient Position: Sitting, BP Cuff Size: X-large Adult) Pulse (!) 58 Temp 98.2 F (36.8 C) Resp 18 Ht 5' 4 Wt 108 kg (238 lb 3.2 oz) SpO2 98% BMI 40.89 kg/m Physical Exam HENT: Head: Jaw: No trismus. Right Ear: Tympanic membrane, ear canal and external ear normal. Left Ear: Tympanic membrane, ear canal and external ear normal. Nose: Congestion and rhinorrhea present. Right Sinus: No maxillary sinus tenderness or frontal sinus tenderness. Left Sinus: No maxillary sinus tenderness or frontal sinus tenderness. Mouth/Throat: Mouth: Mucous membranes are moist. No lacerations, oral lesions or angioedema. Tongue: No lesions. Pharynx: Oropharynx is clear. Uvula midline. Postnasal drip present. No oropharyngeal exudate, posterior oropharyngeal erythema or uvula swelling. Cardiovascular: Rate and Rhythm: Normal rate and regular rhythm. Pulses: Normal pulses. Heart sounds: Normal heart sounds. Pulmonary: Effort: Pulmonary effort is normal. Breath sounds: Wheezing (expiratory wheeze throughout) and rhonchi (right upper lobe) present. Skin: General: Skin is warm and dry. Findings: No rash. Neurological: Mental Status: She is alert and oriented to person, place, and time. Psychiatric: Mood and Affect: Mood normal. Behavior: Behavior normal. Thought Content: Thought content normal. Judgment: Judgment normal. Assessment/Plan: Diagnoses and all orders for this visit: Community acquired pneumonia of right upper lobe of lung - methylPREDNISolone (MEDROL DOSEPACK) 4 mg tablet; Follow package directions . - doxycycline hyclate (VIBRA-TABS) 100 MG tablet; Take 1 (one) tablet (100 mg total) by mouth 2 (two) times a day for 5 days . COPD with asthma (HCC) - mmriorpdodz-cmbdtgmjm-hgkfhiiy (Trelegy Ellipta) 200-62.5-25 mcg DsDv; Inhale 1 (one) Inhalation. daily . Discussed plan of care with patient and daughter. She does have mild expiratory wheezing throughout lungs and rhonchi and adventitious lung sounds to right upper lobe. Did discuss could complete x-ray but would not change plan of care. Discussed will treat for pneumonia with doxycycline as she is allergic to penicillins. Will also provide prednisone taper pack to assist with breathing. She only has a few puffs left on her Trelegy, therefore refill was also sent. Encouraged patient to and complete entire course of antibiotics and steroids. Discussed can take probiotic or eat probiotic yogurt while on the antibiotic. discussed mechanism of action, common side effects and adverse reactions to antibiotic and steroids. Discussed with patient and daughter to monitor for worsening signs and symptoms including fever, chills, worsening cough, confusion. Patient and daughter verbalized understanding and agreement with plan of care. For any medications prescribed today, patient was educated about indications for the medication, how to take the medication and potential side effects of the medication. Please note: Portions of this chart may have been created with [employer]ck voice recognition software. Occasional wrong-word or sound-like substitutions may have occurred due to inherent limitations of the voice recognition software. Please read the chart carefully and recognize, using context, where the substitutions have occurred. Electronically signed by CHARLENE Chopra 3:42 PM documented in this encounter [facility] 09-16-2024 Note Subjective Patient ID: Lola Drew is a 74 y.o. female. Chief Complaint Patient presents with Cough Congestion SOB x 1 month HPI Lola is a 74 year old female comes to office for productive cough with and green sputum, nasal congestion, rhinorrhea, headaches, sinus pressure, sinus congestion. States her symptoms have been going on for about a month. She called into office 2 weeks ago, and was told it was likely viral infection, therefore she has been using fydd-ujt-ovlcvgt symptomatic treatment. She states she went to have cataract removed today and the eye center sent her home due to her cough. Patient did have right eye dilated this morning and was given Valium. She does have past medical history of COPD with asthma, allergic rhinitis, DVT and PE. She is currently managed on Trelegy, Eliquis, albuterol HFA and nebulizer treatments as well as Singulair and ariella. States she did have family at home with similar symptoms, all of which have improved over time yet she has not. The following portions of the patient's history were reviewed and updated as appropriate: allergies, current medications, past family history, past medical history, past social history, past surgical history, and problem list. Past Medical History: Diagnosis Date Asthma Bronchitis Colitis COPD (chronic obstructive pulmonary disease) (HCC) Depression GERD (gastroesophageal reflux disease) Hypercholesterolemia Insomnia Obstructive sleep apnea Osteopenia Vitamin D deficiency Past Surgical History: Procedure Laterality Date APPENDECTOMY CT COLONOSCOPY 05/18/2019 CT COLONOSCOPY FINGER SURGERY Bilateral 11/03/2009 thumb FOOT SURGERY HYSTERECTOMY (CERVIX REMAINS) NASAL SEPTUM SURGERY 1989 possibly TONSILLECTOMY AND ADENOIDECTOMY Social History Tobacco Use Smoking status: Former Current packs/day: 0.00 Average packs/day: 1 pack/day for 44.0 years (44.0 ttl pk-yrs) Types: Cigarettes Start date: 03/03/1971 Quit date: 03/03/2015 Years since quittin.5 Tobacco comments: 1 ppd for 44 years, quit March 2015 Vaping Use Vaping status: Every Day Substances: Nicotine, Flavoring Devices: Disposable Substance Use Topics Alcohol use: Not Currently Comment: 1 drink per year Drug use: No Family History Problem Relation Age of Onset Other (unknown cancer) Mother Heart attack Father age 54 Asthma Father Unknown Sister Allergies Allergen Reactions Amoxicillin Bee Venom Protein (Honey Bee) Swelling Sulfa (Sulfonamide Antibiotics) Penicillins Rash Outpatient Medications as of 09/16/2024 Medication Sig albuterol 90 mcg/actuation inhaler Inhale 2 (two) puffs every 6 (six) hours as needed for wheezing . apixaban (Eliquis) 5 mg Tab Take 1 (one) tablet (5 mg total) by mouth 2 (two) times a day . buPROPion (WELLBUTRIN XL) 300 MG 24 hr tablet Take 1 (one) tablet (300 mg total) by mouth daily . clobetasoL (TEMOVATE) 0.05 % scalp solution DULoxetine (CYMBALTA) 30 MG capsule Take 1 (one) capsule (30 mg total) by mouth daily Total of 90 mg with 60 mg prescription . DULoxetine (CYMBALTA) 60 MG capsule Take 1 (one) capsule (60 mg total) by mouth daily Total 90 mg daily . fexofenadine (ARIELLA) 180 MG tablet Take 1 (one) tablet (180 mg total) by mouth . fluticasone propionate (FLONASE) 50 mcg/actuation nasal spray Instill 1 (one) spray into each nostril daily . furosemide (LASIX) 40 MG tablet Take 1 (one) tablet (40 mg total) by mouth 2 (two) times a day . ipratropium-albuteroL (DUO-NEB) 0.5-2.5 mg/3 ml nebulizer Take 3 mL by nebulization 3 (three) times a day . levothyroxine (SYNTHROID, LEVOTHROID) 75 MCG tablet Take 1 (one) tablet (75 mcg total) by mouth daily . montelukast (SINGULAIR) 10 mg tablet Take 1 tablet (10 mg total) by mouth daily. NONFORMULARY CPAP 9cm H20 (DASCO) in [facility] potassium chloride (MICRO-K) 10 MEQ CR capsule Take 1 (one) capsule (10 mEq total) by mouth daily . simvastatin (ZOCOR) 40 MG tablet Take 1 (one) tablet (40 mg total) by mouth daily . [DISCONTINUED] suavihkfqsr-elscjlpnp-unzprfjk (Trelegy Ellipta) 200-62.5-25 mcg DsDv Inhale 1 puff daily . meclizine (ANTIVERT) 25 mg tablet Take 1 (one) tablet (25 mg total) by mouth 3 (three) times a day as needed for nausea . ondansetron (ZOFRAN-ODT) 4 MG disintegrating tablet Dissolve 1 (one) tablet (4 mg total) on top of tongue every 6 to 8 hours as needed for nausea . pantoprazole (PROTONIX) 40 MG tablet Take by mouth . SUMAtriptan (IMITREX) 50 MG tablet Take 1 (one) tablet (50 mg total) by mouth every 2 (two) hours as needed for migraine Max of 200 mg in 24hrs, do not treat more than 3 times a week . Review of Systems HENT: Positive for congestion, ear pain, postnasal drip, rhinorrhea, sinus pressure and sinus pain. Negative for ear discharge, mouth sores, nosebleeds, sore throat, trouble swallowing and voice change. Eyes: Right eye currently dil (more content not included)... [facility] Ambulatory 09-16-2024 Telephone encounter Note LAST OV 08/03/24. NEXT OV SCHEDULED FOR 09/22/24. [facility] 09-16-2024 Miscellaneous Notes LAST OV 08/03/24. NEXT OV SCHEDULED FOR 09/22/24. documented in this encounter [facility] 08-30-2024 Instructions Rogelio Panda CNP - 08/30/2024 10:20 AM EDT Please stop at the laboratory on the 2nd floor of this building (located to the left as you step off the elevator). Tell the lab staff you have labs ordered in the system from Rogelio Panda CNP Continue Eliquis twice daily Ultrasound of right lower extremity in 3 months documented in this encounter [facility] 08-30-2024 History of Present illness Narrative Hematology/Oncology Clinic Consult Note Patient ID: Lola Drew is a 74 y.o. female Reason for Consult: Pulmonary Embolism Date: 08/30/24 Referring Physician: Sara Alvarez MD PCP: Sara Alvarez MD Hematology/Oncology: Krys Butcher MD History of Present Illness: Lola Drew is a 74 y.o. female with a history of pulmonary embolism, vitamin D deficiency, osteopenia, sleep apnea, hypercholesterolemia, GERD, depression, COPD, colitis, bronchitis, and asthma.She was referred by Dr. Alvarez for recommendations regarding recent diagnosis of bilateral pulmonary embolism and RLL DVT. Patient presented to the ED on 07/24/24 with worsening shortness of breath cough, and chest heaviness over the previous 2 weeks. She had been placed on antibiotics without much improvement. CT for PE demonstrated evidence of a large bilateral pulmonary embolisms with right heart strain. Patient was given heparin bolus and infusion. Patient admitted to [place] ICU for further evaluation of pulmonary embolisms with right heart strain and elevated troponin. The echocardiogram was performed which showed hyperdynamic left ventricle with ejection fraction greater than 65 to 70%, and moderately severe pulmonary hypertension, PA and RV systolic pressure around 69 mm. She was also found to have acute DVT in mid peroneal veins (one of the paired) of the right lower extremity. She was discharged on Eliquis. She denies any recent surgery or travel prior to her VTE. No previous history of VTE, no family history of clotting disorder. She was again seen in the ED on 07/30/24 for bronchitis ang given steroids and doxycycline. Shortness of breath on exertion, fatigue, edema of left lower extremity. Past Medical and Surgical History Past Medical History: Diagnosis Date Asthma Bronchitis Colitis COPD (chronic obstructive pulmonary disease) (HCC) Depression GERD (gastroesophageal reflux disease) Hypercholesterolemia Insomnia Obstructive sleep apnea Osteopenia Vitamin D deficiency Past Surgical History: Procedure Laterality Date APPENDECTOMY CT COLONOSCOPY 05/18/2019 CT COLONOSCOPY FINGER SURGERY Bilateral 11/03/2009 thumb FOOT SURGERY HYSTERECTOMY (CERVIX REMAINS) NASAL SEPTUM SURGERY 1989 possibly TONSILLECTOMY AND ADENOIDECTOMY Allergies and Medications Allergies Allergen Reactions Amoxicillin Bee Venom Protein (Honey Bee) Swelling Sulfa (Sulfonamide Antibiotics) Penicillins Rash Current Outpatient Medications Medication Sig Dispense Refill albuterol 90 mcg/actuation inhaler Inhale 2 (two) puffs every 6 (six) hours as needed for wheezing . apixaban (Eliquis) 5 mg Tab Take 1 (one) tablet (5 mg total) by mouth 2 (two) times a day . 180 tablet 0 buPROPion (WELLBUTRIN XL) 300 MG 24 hr tablet Take 1 (one) tablet (300 mg total) by mouth daily . 90 tablet 1 clobetasoL (TEMOVATE) 0.05 % scalp solution DULoxetine (CYMBALTA) 30 MG capsule Take 1 (one) capsule (30 mg total) by mouth daily Total of 90 mg with 60 mg prescription . 30 capsule 11 DULoxetine (CYMBALTA) 60 MG capsule Take 1 (one) capsule (60 mg total) by mouth daily Total 90 mg daily . 90 capsule 1 fexofenadine (ARIELLA) 180 MG tablet Take 1 (one) tablet (180 mg total) by mouth . fluticasone propionate (FLONASE) 50 mcg/actuation nasal spray Instill 1 (one) spray into each nostril daily . 16 g 1 ylocnyqsewk-mhavdtqdp-abddckqr (Trelegy Ellipta) 200-62.5-25 mcg DsDv Inhale 1 puff daily . 28 each 3 furosemide (LASIX) 40 MG tablet Take 1 (one) tablet (40 mg total) by mouth 2 (two) times a day . ipratropium-albuteroL (DUO-NEB) 0.5-2.5 mg/3 ml nebulizer Take 3 mL by nebulization 3 (three) times a day . 270 mL 2 levothyroxine (SYNTHROID, LEVOTHROID) 75 MCG tablet Take 1 (one) tablet (75 mcg total) by mouth daily . meclizine (ANTIVERT) 25 mg tablet Take 1 (one) tablet (25 mg total) by mouth 3 (three) times a day as needed for nausea . 30 tablet 0 montelukast (SINGULAIR) 10 mg tablet Take 1 tablet (10 mg total) by mouth daily. 90 tablet 4 NONFORMULARY CPAP 9cm H20 (DASCO) in [facility] ondansetron (ZOFRAN-ODT) 4 MG disintegrating tablet Dissolve 1 (one) tablet (4 mg total) on top of tongue every 6 to 8 hours as needed for nausea . 20 tablet 0 pantoprazole (PROTONIX) 40 MG tablet Take by mouth . potassium chloride (MICRO-K) 10 MEQ CR capsule Take 1 (one) capsule (10 mEq total) by mouth daily . 90 capsule 1 simvastatin (ZOCOR) 40 MG tablet Take 1 (one) tablet (40 mg total) by mouth daily . 90 tablet 1 SUMAtriptan (IMITREX) 50 MG tablet Take 1 (one) tablet (50 mg total) by mouth every 2 (two) hours as needed for migraine Max of 200 mg in 24hrs, do not treat more than 3 times a week . 10 tablet 0 No current facility-administered medications for this visit. Family History Problem Relation Age of Onset Other (unknown cancer) Mother Heart attack Father age 54 Asthma Father Unknown Sister Social History Socioeconomic History Marital status: Occupational History Employer: [employer] Tobacco Use Smoking status: Former Current packs/day: 0.00 Average packs/day: 1 pack/day for 44.0 years (44.0 ttl pk-yrs) Types: Cigarettes Start date: 03/03/1971 Quit date: 03/03/2015 Years since quittin.5 Tobacco comments: 1 ppd for 44 years, quit March 2015 Vaping Use Vaping status: Every Day Substances: Nicotine, Flavoring Devices: Disposable Substance and Sexual Activity Alcohol use: Not Currently Comment: 1 drink per year Drug use: No Social Drivers of Health Food Insecurity: No Food Insecurity (07/25/2024) Hunger Vital Sign Worried About Running Out of Food in the Last Year: Never true Ran Out of Food in the Last Year: Never true Transportation Needs: No Transportation Needs (07/25/2024) PRAPARE - Transportation Lack of Transportation (Medical): No Lack of Transportation (Non-Medical): No Housing Stability: Low Risk (07/25/2024) Housing Stability Vital Sign Unable to Pay for Housing in the Last Year: No Number of Times Moved in the Last Year: 0 Homeless in the Last Year: No Review of Systems Review of Systems:A complete review of systems was performed and is negative except for what is listed in the HPI. Physical Exam ECOG 1-2 PACU Vitals 08/30/24 0958 BP: 125/78 Pulse: 60 Temp: 98 F (36.7 C) SpO2: 95% General Appearance: Alert, well developed, and in no acute distress. HEENT: Head - Normocephalic, atraumatic. No temporal wasting . Eyes - CLEMENTINE bilaterally and EOMI, anicteric sclerae. Ears - normal external appearance, hearing intact. Nose - normal, no erythema. Throat - mucous membranes moist, pharynx without lesions. Neck: Supple, trachea midline. Cardiovascular: S1, S2 normal. No murmurs, rubs, clicks or gallops appreciated. Mild pedal edema. Respiratory: Lungs clear to auscultation, no wheezes, rales or rhonchi heard. Lymphatics: no new adenopathy in cervical, supraclavicular, axillary, inguinal regions Abdomen: Soft, non-tender, normal bowel sounds, non-distended, no hepatosplenomegaly Neurological: Grossly normal motor and sensory exam. No focal deficits. Musculoskeletal: No joint tenderness, deformity. Skin: Normal coloration and turgor. No rashes. Psych: Alert, oriented x 3. Normal mood and affect. Labs: Lab Results Component Value Date WBC 7.41 07/27/2024 HGB 13.0 07/27/2024 HCT 39.7 07/27/2024 PLT 147 (L) 07/27/2024 Radiology: CT lung cancer screening 07/29/24 1.Mild peribronchial thickening consistent with acute and/or chronic bronchitis. 2.Noncalcified nodules ranging from 1.9 mm to 3.6 mm. There are no pathologically enlarged lymph nodes. 3.Additional findings as described in the body of the report. Lung rads score 2. A low-dose CT lung screening examination in 12 months is recommended. Bilateral doppler ultrasounds 07/26/24 Right: Acute deep vein thrombosis in the mid peroneal veins (one of the paired) of the right lower extremity. All other vein visualized in the right lower extremity are within normal limits. Left: No evidence of deep vein thrombosis in the left lower extremity CT pulmonary arteries 07/24/24 1.Extensive bilateral pulmonary emboli with suggestion of at least mild right heart strain. 2.Heterogeneous lungs suggesting air trapping versus ground-glass infiltrates or progressive heterogeneous fibrotic lung disease. The upper lobe shows some peripheral areas of air-trapping versus emphysema. 3.Cholelithiasis. Assessment and Recommendations Assessment/recommendation: Lola Drew is a 74 y.o. female with a history of pulmonary embolism, vitamin D deficiency, osteopenia, sleep apnea, hypercholesterolemia, GERD, depression, COPD, colitis, bronchitis, and asthma.She was referred by Dr. Alvarez for recommendations regarding recent diagnosis of bilateral pulmonary embolism and right lower extremity deep vein thrombosis. Bilateral pulmonary embolism and right lower extremity deep vein thrombosis. -Patient presented to the ED on 07/24/24 with worsening shortness of breath cough, and chest heaviness over the previous [address] for PE demonstrated evidence of a large bilateral pulmonary embolisms with right heart strain. She was also found to have acute DVT in mid peroneal veins (one of the paired) of the right lower extremity. She was discharged on Eliquis. -She denies any recent surgery or travel prior to her VTE. No previous history of VTE, no family history of clotting disorder. 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 She is fairly sedentary given her COPD. Given this, I would recommend 3-6 months of anticoagulation - I would not recommend extended hypercoagulability testing at this time given that he is currently on Eliquis. It would be reasonable, however to send factor V Leiden and prothrombin gene mutation testing, given the DOAC should not interfere with these assays - Will order doppler ultrasound of right lower extremity for 3 months (October,) Pulmonary nodules/ Nicotine dependence: Per history. 44 pack year history of smoking, quit 4 years ago. Nodules noted on CT lung cancer screening 07/29/24. Repeat in one year. Ordered by Pulmonology. COPD: per history. She follows with [facility] Pulmonology. Follow up as scheduled. Routine cancer screenings: Colonoscopy in 2019. Cologuard testing negative 08/16/24. Repeat in 3 years. Mammogram: 08/04/2024 Education Provided Education/Instructions given to: (x) Patient (_) Spouse (_) Parent (_) Other Barriers to Learning: (x) None (_) Yes (identify):_ Content: (x) Refer to note above (_)Other (identify):_ Evaluation/Outcome: (x) Verbalized understanding (_) Demonstrated understanding (_) Other:_ Advanced Directives: Full Code ARTHUR Boothe documented in this encounter [facility] 08-30-2024 Note Hematology/Oncology Clinic Consult Note Patient ID: Lola Drew is a 74 y.o. female Reason for Consult: Pulmonary Embolism Date: 08/30/24 Referring Physician: Sara Alvarez MD PCP: Sara Alvarez MD Hematology/Oncology: Krys Butcher MD History of Present Illness: Lola Drew is a 74 y.o. female with a history of pulmonary embolism, vitamin D deficiency, osteopenia, sleep apnea, hypercholesterolemia, GERD, depression, COPD, colitis, bronchitis, and asthma.She was referred by Dr. Alvarez for recommendations regarding recent diagnosis of bilateral pulmonary embolism and RLL DVT. Patient presented to the ED on 07/24/24 with worsening shortness of breath cough, and chest heaviness over the previous 2 weeks. She had been placed on antibiotics without much improvement. CT for PE demonstrated evidence of a large bilateral pulmonary embolisms with right heart strain. Patient was given heparin bolus and infusion. Patient admitted to [place] ICU for further evaluation of pulmonary embolisms with right heart strain and elevated troponin. The echocardiogram was performed which showed hyperdynamic left ventricle with ejection fraction greater than 65 to 70%, and moderately severe pulmonary hypertension, PA and RV systolic pressure around 69 mm. She was also found to have acute DVT in mid peroneal veins (one of the paired) of the right lower extremity. She was discharged on Eliquis. She denies any recent surgery or travel prior to her VTE. No previous history of VTE, no family history of clotting disorder. She was again seen in the ED on 07/30/24 for bronchitis ang given steroids and doxycycline. Shortness of breath on exertion, fatigue, edema of left lower extremity. Past Medical and Surgical History Past Medical History: Diagnosis Date Asthma Bronchitis Colitis COPD (chronic obstructive pulmonary disease) (HCC) Depression GERD (gastroesophageal reflux disease) Hypercholesterolemia Insomnia Obstructive sleep apnea Osteopenia Vitamin D deficiency Past Surgical History: Procedure Laterality Date APPENDECTOMY CT COLONOSCOPY 05/18/2019 CT COLONOSCOPY FINGER SURGERY Bilateral 11/03/2009 thumb FOOT SURGERY HYSTERECTOMY (CERVIX REMAINS) NASAL SEPTUM SURGERY 1989 possibly TONSILLECTOMY AND ADENOIDECTOMY Allergies and Medications Allergies Allergen Reactions Amoxicillin Bee Venom Protein (Honey Bee) Swelling Sulfa (Sulfonamide Antibiotics) Penicillins Rash Current Outpatient Medications Medication Sig Dispense Refill albuterol 90 mcg/actuation inhaler Inhale 2 (two) puffs every 6 (six) hours as needed for wheezing . apixaban (Eliquis) 5 mg Tab Take 1 (one) tablet (5 mg total) by mouth 2 (two) times a day . 180 tablet 0 buPROPion (WELLBUTRIN XL) 300 MG 24 hr tablet Take 1 (one) tablet (300 mg total) by mouth daily . 90 tablet 1 clobetasoL (TEMOVATE) 0.05 % scalp solution DULoxetine (CYMBALTA) 30 MG capsule Take 1 (one) capsule (30 mg total) by mouth daily Total of 90 mg with 60 mg prescription . 30 capsule 11 DULoxetine (CYMBALTA) 60 MG capsule Take 1 (one) capsule (60 mg total) by mouth daily Total 90 mg daily . 90 capsule 1 fexofenadine (ARIELLA) 180 MG tablet Take 1 (one) tablet (180 mg total) by mouth . fluticasone propionate (FLONASE) 50 mcg/actuation nasal spray Instill 1 (one) spray into each nostril daily . 16 g 1 wlxhojfnqec-qzrvndxjq-fchehico (Trelegy Ellipta) 200-62.5-25 mcg DsDv Inhale 1 puff daily . 28 each 3 furosemide (LASIX) 40 MG tablet Take 1 (one) tablet (40 mg total) by mouth 2 (two) times a day . ipratropium-albuteroL (DUO-NEB) 0.5-2.5 mg/3 ml nebulizer Take 3 mL by nebulization 3 (three) times a day . 270 mL 2 levothyroxine (SYNTHROID, LEVOTHROID) 75 MCG tablet Take 1 (one) tablet (75 mcg total) by mouth daily . meclizine (ANTIVERT) 25 mg tablet Take 1 (one) tablet (25 mg total) by mouth 3 (three) times a day as needed for nausea . 30 tablet 0 montelukast (SINGULAIR) 10 mg tablet Take 1 tablet (10 mg total) by mouth daily. 90 tablet 4 NONFORMULARY CPAP 9cm H20 (DASCO) in [facility] ondansetron (ZOFRAN-ODT) 4 MG disintegrating tablet Dissolve 1 (one) tablet (4 mg total) on top of tongue every 6 to 8 hours as needed for nausea . 20 tablet 0 pantoprazole (PROTONIX) 40 MG tablet Take by mouth . potassium chloride (MICRO-K) 10 MEQ CR capsule Take 1 (one) capsule (10 mEq total) by mouth daily . 90 capsule 1 simvastatin (ZOCOR) 40 MG tablet Take 1 (one) tablet (40 mg total) by mouth daily . 90 tablet 1 SUMAtriptan (IMITREX) 50 MG tablet Take 1 (one) tablet (50 mg total) by mouth every 2 (two) hours as needed for migraine Max of 200 mg in 24hrs, do not treat more than 3 times a week . 10 tablet 0 No current facility-administered medications for this visit. Family History Problem Relation Age of Onset Other (unknown cancer) Mother Heart attack Father age 54 Ast (more content not included)... [facility] Ambulatory 08-03-2024 Note Subjective Patient I D: Lola Drew is a 74 y.o. female here for Chief Complaint Patient presents with Transition Of Care Feeling better After discussing the use of ambient listening and audio recording in generating medical documentation, the patient verbally consented to use of this technology for today's visit. History of Present Illness The patient has been under the care of Dr. Alfaro for approximately 17 years. SOB: She reports experiencing shortness of breath and congestion, which she attributes to her 's illness. 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 She has been experiencing allergies for the past 3 weeks, characterized by postnasal drip and choking sensations extending into her chest. Despite these symptoms, she continues to feel unwell. She has been diagnosed with Chronic Obstructive Pulmonary Disease (COPD) and underwent pulmonary function tests approximately 2 years ago. 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 Dr. Valadez initially attributed her symptoms to asthma rather than COPD. Her current medications include Incruse Ellipta, Advair, and albuterol. She has been on a combination of montelukast and Advair for several years. Over the past 3 weeks, she has been experiencing a cough and difficulty breathing, which she initially attributed to allergies. She has not sought medical attention for her symptoms. She quit smoking in 2014 and currently vapes. She has previously tried Chantix for smoking cessation was successful with it.. She denies any cardiac issues, heart attacks, or stents. Her blood pressure is typically 120/60. Following up with pulmonology in 3 months and currently on Trelegy with no concerns. Depression and anxiety: Feels overwhelmed with her 's health, s has to take care of a lot of stuff around the house and give him his medicine, does not have a lot of support at home or around with other family members. She is currently taking Cymbalta 9 doing well currently not 0 mg and Wellbutrin 300 mg once daily. Doing well, currently not seeing any therapist and does not feel the need for it and feels well Hyperlipidemia: She takes simvastatin 40 mg every day for cholesterol. Extensive Bilateral PE with mild heart right strain Elevated Troponin likely due to demand ischemia in the setting of PE Pt presents with worsening Sob and chest heaviness EKG:NSR Echo with preserved EF, severe pulmonary hypertension with RV enlargement and reduced RV function with RVSP 68 Cardiology following up outpatient with repeat echo to be done in October currently on Eliquis 5 mg twice daily. Healthcare maintenance She is scheduled for a mammogram tomorrow morning. COPD exacerbation : Had a lot of cRUD was not able to get here, she recently visited the ER where she was prescribed an antibiotic and prednisone. Feels better already. She is due for a sleep study and has received her flu shot. She is considering getting the COVID-19 and RSV vaccines. She has completed her pneumonia vaccine series and is due for her second shingles vaccine. Past Medical History: Diagnosis Date Asthma Bronchitis Colitis COPD (chronic obstructive pulmonary disease) (HCC) Depression GERD (gastroesophageal reflux disease) Hypercholesterolemia Insomnia Obstructive sleep apnea Osteopenia Vitamin D deficiency Past Surgical History: Procedure Laterality Date APPENDECTOMY CT COLONOSCOPY 05/18/2019 CT COLONOSCOPY FINGER SURGERY Bilateral 11/03/2009 thumb FOOT SURGERY HYSTERECTOMY (CERVIX REMAINS) TONSILLECTOMY AND ADENOIDECTOMY Family History Problem Relation Age of Onset Heart attack Father age 54 Asthma Father Cancer Father age 48 Social History Tobacco Use Smoking status: Former Current packs/day: 0.00 Average packs/day: 1 pack/day for 44.0 years (44.0 ttl pk-yrs) Types: Cigarettes Start date: 03/03/1971 Quit date: 03/03/2015 Years since quittin.4 Tobacco comments: 1 ppd for 44 years, quit March 2015 Vaping Use Vaping status: Every Day Substances: Nicotine, Flavoring Devices: Disposable Substance Use Topics Alcohol use: Not Currently Comment: 1 drink per week Drug use: No Review of Systems Vitals: 08/03/24 1543 BP: 131/77 BP Location: Right arm Patient Position: Sitting BP Cuff Size: X-large Adult Pulse: 61 Resp: 16 Temp: 97.8 degrees F (36.6 degrees C) TempSrc: Temporal SpO2: 92% Weight: 103.4 kg (228 lb) Height: 5' 4 Estimated body mass index is 39.14 kg/m as calculated from the following: Height as of this encounter: 5' 4. Weight as of this encounter: 103.4 kg (228 lb). Physical Exam Constitutional: General: She is not in acute distress. Appearance: She is not ill-appearing. HENT: Head: Normocephalic and atraumatic. Nose: Nose normal. Mouth/Throat: Mouth: Mucous membranes are moist. Pharynx: Diogo (more content not included)... [facility] 07-27-2024 [place] [facility] [place] [facility] Lola Drew Admitted: 07/25/2024 Discharge Date: 07/27/24 PCP Handoff Recommended Outpatient Testing None Results Pending At Discharge None Clinical Summary Lola Drew is a 74 y.o. female patient of Sara Alvarez MD with history of COPD, lifelong asthma, chronic bronchitis, seasonal allergies and obstructive sleep apnea treated with CPAP presented with shortness of breath Extensive Bilateral PE with mild heart right strain Elevated Troponin likely due to demand ischemia in the setting of PE Pt presents with worsening Sob and chest heaviness EKG:NSR Echo with preserved EF, severe pulmonary hypertension with RV enlargement and reduced RV function with RVSP 68 Cardiology consulted Cont with heparin drip, changed to po eliquis COPD Asthma Oxygen supplementation as needed Breathing treatment as needed Resume home inhalers JOHNATHAN CPAP Seasonal allergies Singulair and Ariella Nicotine dependence Cessation education Hypothyroidism Synthroid Check TSH 1.38, with reflex T4 GERD PPI Depression Cymbalta and bupropion Bilateral lower extremity edema Resume home Lasix Venous doppler * Acute deep vein thrombosis in the mid peroneal veins (one of the paired) of the right lower extremity. Prediabetes A1c 5.7 Lifestyle modification Morbid obesity BMI 40.34 Encouraged weight loss Discharge Medications Discharge Medications New Medications Details Eliquis DVT-PE Treat 30D Start 5 mg (74 tabs) Dspk Generic drug: apixaban Take 2 tablets (10mg) by mouth 2 (two) time a day for 7 days. Then take 1 tablet (5mg) by mouth 2 (two) times a day for 23 days . Quantity: 74 tablet Medications To Continue Details albuterol 90 mcg/actuation inhaler Inhale 2 (two) puffs every 6 (six) hours as needed for wheezing . buPROPion 300 MG 24 hr tablet Commonly known as: WELLBUTRIN XL Take 1 (one) tablet (300 mg total) by mouth daily . Quantity: 30 tablet calcium carbonate-vitamin D3 600 mg-20 mcg (800 unit) Tab Take 1 tablet by mouth . clobetasoL 0.05 % scalp solution Commonly known as: TEMOVATE cyanocobalamin (vitamin B-12) 2,500 mcg Tab Take 1 (one) tablet (2,500 mcg total) by mouth . * DULoxetine 60 MG capsule Commonly known as: CYMBALTA * DULoxetine 30 MG capsule Commonly known as: CYMBALTA Take 1 (one) capsule (30 mg total) by mouth daily Total of 90 mg with 60 mg prescription . Quantity: 30 capsule fexofenadine 180 MG tablet Commonly known as: ARIELLA Take 1 (one) tablet (180 mg total) by mouth . fluticasone propionate 50 mcg/actuation nasal spray Commonly known as: FLONASE Instill 1 (one) spray into each nostril daily . Quantity: 16 g furosemide 40 MG tablet Commonly known as: LASIX Take 1 (one) tablet (40 mg total) by mouth 2 (two) times a day . ipratropium-albuteroL 0.5-2.5 mg/3 ml nebulizer Commonly known as: DUO-NEB Take 3 mL by nebulization 3 (three) times a day . Quantity: 270 mL levothyroxine 75 MCG tablet Commonly known as: SYNTHROID, LEVOTHROID Take 1 (one) tablet (75 mcg total) by mouth daily . meclizine 25 mg tablet Commonly known as: ANTIVERT Take 1 (one) tablet (25 mg total) by mouth 3 (three) times a day as needed for nausea . Quantity: 30 tablet montelukast 10 mg tablet Commonly known as: SINGULAIR Take 1 tablet (10 mg total) by mouth daily. Quantity: 90 tablet NONFORMULARY CPAP 9cm H20 (DASCO) in [facility] ondansetron 4 MG disintegrating tablet Commonly known as: ZOFRAN-ODT Dissolve 1 (one) tablet (4 mg total) on top of tongue every 6 to 8 hours as needed for nausea . Quantity: 20 tablet pantoprazole 40 MG tablet Commonly known as: PROTONIX Take by mouth . simvastatin 40 MG tablet Commonly known as: ZOCOR Take 1 (one) tablet (40 mg total) by mouth daily . Quantity: 90 tablet SUMAtriptan 50 MG tablet Commonly known as: IMITREX Take 1 (one) tablet (50 mg total) by mouth every 2 (two) hours as needed for migraine Max of 200 mg in 24hrs, do not treat more than 3 times a week . Quantity: 10 tablet Trelegy Ellipta 200-62.5-25 mcg Dsdv Generic drug: ryxcvslktyg-lcbgwgibo-pffnnzxc Inhale 1 puff daily . Quantity: 28 each * There are duplicate medications prescribed to the patient Stopped Medications fluconazole 100 MG tablet Commonly known as: DIFLUCAN Physician(s) Follow Up: No follow-up provider specified. Condition at Discharge: Stable Disposition: Home I reviewed discharge recommendations with the patient in person. Patient instructions, including activity, were given to the patient/family at discharge. On day of discharge I saw Lola Drew and spent: > 30 minutes on discharge. Completed by: Theodore Brown MD on 07/27/24, 9:03 AM AUTHENTICATED BY THEODORE BROWN, ON 07/27/2024 13:35:27 [facility] 07-26-2024 Note HMS PROGRESS NOTE Assessment and Plan Lola Drew is a 74 y.o. female patient of Sara Alvarez MD with history of COPD, lifelong asthma, chronic bronchitis, seasonal allergies and obstructive sleep apnea treated with CPAP presented with shortness of breath Extensive Bilateral PE with mild heart right strain Pulmonary Hypertension Mild tricuspid valve regurgitation Elevated Troponin likely due to demand ischemia in the setting of PE Pt presents with worsening Sob and chest heaviness EKG:NSR ECHO RV appears enlarged with reduced RV function, Left ventricular systolic function is hyperdynamic with an EF-81 %, mild tricuspid valve regurgitation and pulmonary hypertension, estimated right ventricle systolic pressure is 68 mmHg. Cardiology consulted, recs appreciated s/p heparin drip, start eliquis 07/26 COPD Asthma Oxygen supplementation as needed Breathing treatment as needed Resume home inhalers JOHNATHAN CPAP Seasonal allergies Singulair and Ariella Nicotine dependence Cessation education Hypothyroidism Synthroid TSH 1.38 GERD PPI Depression Cymbalta and bupropion Acute Rt DVT in the mid peroneal veins Bilateral lower extremity edema Rt more Resume home Lasix s/p heparin, start eliquis in the evening 07/26 Prediabetes A1c 5.7 Lifestyle modification Morbid obesity BMI 40.34 Encouraged weight loss Resolved acute medical issues Discharge Planning Medically Stable for Discharge Date: 07/27 Patient requires continued hospitalization due to: transition to eliquis, breathing treatments Discharge Location: Home Quality Measures DVT Prophylaxis: heparin gtt Cannon Catheter: absent Code Status Full Primary Contact Information Subjective Chest discomfort is improving. Objective BP (!) 121/58 Pulse (!) 56 Temp 97.9 degrees F (36.6 degrees C) (Oral) Resp 17 Ht 5' 4 Wt 106.6 kg (235 lb 0.2 oz) SpO2 94% BMI 40.34 kg/m Physical Examination General Appearance: alert; well appearing; in mild acute distress HEENT: Head- normocephalic; Eyes- EOMI, sclera anicteric; Throat- mucous membranes moist Cardiovascular: regular rate and rhythm; normal S1, S2; no murmurs, rubs, clicks or gallops; peripheral edema 3+ Respiratory: lungs clear to auscultation; wheezes, rales or rhonchi; on nasal cannula Abdomen: soft, non-tender, non-distended Neurological: oriented x 3; normal speech; no focal findings or movement disorder noted Musculoskeletal: no significant deformity or tenderness to palpation Skin: normal coloration Psych: normal mood and affect AUTHENTICATED BY SULMA JANG, ON 07/26/2024 12:18:13 [facility] 07-25-2024 Note [facility] [place] Assessment and Plan Lola Drew is a 74 y.o. female patient of Sara Alvarez MD with history of COPD, lifelong asthma, chronic bronchitis, seasonal allergies and obstructive sleep apnea treated with CPAP presented with shortness of breath Extensive Bilateral PE with mild heart right strain Elevated Troponin likely due to demand ischemia in the setting of PE Pt presents with worsening Sob and chest heaviness EKG:NSR Pending ECHO Cardiology consulted Cont with heparin drip COPD Asthma Oxygen supplementation as needed Breathing treatment as needed Resume home inhalers JOHNATHAN CPAP Seasonal allergies Singulair and Ariella Nicotine dependence Cessation education Hypothyroidism Synthroid Check TSH 1.38, with reflex T4 GERD PPI Depression Cymbalta and bupropion Bilateral lower extremity edema Resume home Lasix Venous doppler Prediabetes A1c 5.7 Lifestyle modification Morbid obesity BMI 40.34 Encouraged weight loss Resolved acute medical issues Discharge Planning Medically Stable for Discharge Date: 07/27 Patient requires continued hospitalization due to: Heparin drip, ECHO and cardiology evaluation Discharge Location: Home Quality Measures DVT Prophylaxis: heparin gtt Cannon Catheter: absent Code Status Full Primary Contact Information Subjective Pt has mild chest heaviness and discomfort Objective BP (!) 150/73 Pulse (!) 53 Temp 97.9 degrees F (36.6 degrees C) (Oral) Resp 17 Ht 5' 4 Wt 106.6 kg (235 lb 0.2 oz) SpO2 95% BMI 40.34 kg/m Physical Examination General Appearance: alert; well appearing; in mild acute distress HEENT: Head- normocephalic; Eyes- EOMI, sclera anicteric; Throat- mucous membranes moist Cardiovascular: regular rate and rhythm; normal S1, S2; no murmurs, rubs, clicks or gallops; peripheral edema 3+ Respiratory: lungs clear to auscultation; without wheezes, rales or rhonchi; on nasal cannula Abdomen: soft, non-tender, non-distended Neurological: oriented x 3; normal speech; no focal findings or movement disorder noted Musculoskeletal: no significant deformity or tenderness to palpation Skin: normal coloration Psych: normal mood and affect AUTHENTICATED BY SULMA JANG, ON 07/25/2024 13:19:07 [facility] 07-25-2024 Note HMS HISTORY AND PHYS ICAL Patient Name: Lola Drew : 1950 SEX: female MR #: [id number] Admit Date: 07/25/2024 Physicians: Sara Alvarez MD (Family); Boby Aviles (Referring) ROOM: [address] [place] [address] Hospitalist: Byron Escobar MD Lola Drew is a 74 y.o. female patient of Sara Alvarez MD with history of COPD, lifelong asthma, chronic bronchitis, seasonal allergies and obstructive sleep apnea treated with CPAP presented with shortness of breath Bilateral PE Resume heparin 2D echo Cardiology consult if RV strain confirmed Trend troponins Venous Dopplers COPD Asthma Oxygen supplementation as needed Breathing treatment as needed Resume home inhalers JOHNATHAN CPAP Seasonal allergies Singulair and Ariella Nicotine dependence Cessation education Hypothyroidism Synthroid Check TSH with reflex T4 GERD PPI Depression Cymbalta and bupropion Bilateral lower extremity edema Resume home Lasix Morbid obesity BMI 40.34 Encouraged weight loss Check TSH and A1c Admitted From: Home through [place] ED Medication Reconciliation: Unverified Code Status: Full code per patient The following Vizient risk variables were noted and present on admission: Acute Respiratory Failure and Pulmonary Hypertension Please see assessment and plan for further details. Quality Measures DVT Prophylaxis: Heparin and compression stockings Cannon Catheter: none Chief Complaint shortness of breath History of Present Illness It is my privilege to provide care for Lola Drew who is a(n) 74 y.o. female who has a history of COPD, lifelong asthma, chronic bronchitis, seasonal allergies and obstructive sleep apnea treated with CPAP presented with shortness of breath. Patient mentioned that 3 weeks ago she started having cold symptoms with cough congestion shortness of breath she was seen by her cocoa press operator on 07/13/2024 was prescribed doxycycline and prednisone which she has completed patient did improve temporarily and started having cough and shortness of breath with exertion she called her cocoa press operator on 07/21/2024 and did not receive a call back yet. So she went to an [facility] ED workup done in the ED showed that she has elevated troponins and elevated D-dimer CTA was done showed bilateral PE with possible mild RV strain. She was started on heparin and was transferred to our facility for further evaluation and management. ED narrative Patient seen and evaluated for concern of cough. CBC clinically unremarkable. VBG demonstrated pH of 7.43, potassium of 3.4 and negative lactate. CBC clinically unremarkable. COVID-negative. ABG demonstrated a pH of 7.43, and a negative lactate. Influenza negative. D-dimer was 2730. Troponin was 0.06 and patient was given 324 chewable aspirin. BNP negative. Chest x-ray was suggestive of increased hilar fullness on the right side and a CT was recommended. CT for PE demonstrated evidence of a large bilateral pulmonary embolisms with right heart strain. Patient was given heparin bolus and infusion. Patient will be admitted to [place] to the ICU for further evaluation of pulmonary embolisms with right heart strain and elevated troponin. Patient hemodynamically stable in the emergency department and transferred in stable condition. Past Medical History Past Medical History: Diagnosis Date Asthma Bronchitis Colitis COPD (chronic obstructive pulmonary disease) (HCC) Depression GERD (gastroesophageal reflux disease) Hypercholesterolemia Insomnia Obstructive sleep apnea Osteopenia Vitamin D deficiency Past Surgical History Past Surgical History: Procedure Laterality Date APPENDECTOMY CT COLONOSCOPY 05/18/2019 CT COLONOSCOPY FINGER SURGERY Bilateral 11/03/2009 thumb FOOT SURGERY HYSTERECTOMY (CERVIX REMAINS) TONSILLECTOMY AND ADENOIDECTOMY Family History Family History Problem Relation Age of Onset Heart attack Father age 54 Asthma Father Cancer Father age 48 Unable to obtain other family history other than what is mentioned above Social History Social History Tobacco Use Smoking Status Former Current packs/day: 0.00 Average packs/day: 1 pack/day for 44.0 years (44.0 ttl pk-yrs) Types: Cigarettes Start date: 03/03/1971 Quit date: 03/03/2015 Years since quittin.4 Smokeless Tobacco Not on file Tobacco Comments 1 ppd for 44 years, quit March 2015 Social History Substance and Sexual Activity Alcohol Use Not Currently Comment: 1 drink per week Social History Substance and Sexual Activity Drug Use No Allergy Information I have reviewed the patient's allergies. Amoxicillin, Bee venom protein (honey bee), Sulfa (sulfonamide antibiotics), and Penicillins Home Medications Home medications were reviewed. Prior to Admission medications Medication Sig Start Date End (more content not included)... [facility] 07-13-2024 Note [facility] [address] [facility] [address] [facility] [id number] Name: Lola Drew Age: 74 y.o. : 1950 Today's date: 07/13/24 Outpatient Pulmonary Consult CC: Shortness of breath, cough and wheezing. HPI: Ms. Lola Drew is a 74-year-old white female former smoker who currently vapes nicotine products with COPD, lifelong asthma, chronic bronchitis, seasonal allergies and obstructive sleep apnea treated with CPAP who presents for new patient evaluation complaining of 2 weeks of shortness of breath, cough productive of yellow-green sputum, yellow-green nasal discharge, chest tightness and wheezing. She states the symptoms are what I get with exacerbations. She denies fever, chills, night sweats, hemoptysis, chest pain, GERD symptoms, dysphagia or unintended weight loss. She states that baseline she has fair exercise tolerance and minimal shortness of breath. She feels that she does well with her current medication regimen. She states that she has occasional nasal congestion at baseline but otherwise has no wheezing. She was diagnosed with sleep apnea many years ago and wears CPAP and has no residual symptoms. She states she has not seen a sleep physician in many years. She has been getting CPAP supplies intermittently through her primary care physician. She takes Trelegy 200 mcg once daily and finds it beneficial. She takes increased to daily. She rarely takes rescue albuterol. She has a nebulizer but states her medication for her nebulizer is old. She did use it with these recent symptoms and is unsure if it was of benefit. She is unsure if she has had antibiotics within the last 6 months. PFTs done 04/20/2024 revealed moderate airway obstruction with air trapping. She has a more than 34-necv-fdeu smoking history. She states she has not had a CT scan of the chest in approximately 2 years. She states she has never had COVID-19 but got 3 vaccines. She has not had the most recent vaccine. She states she gets annual flu shots. She states she has been immunized appropriately for pneumococcal pneumonia, shingles and RSV. Review of Systems Constitutional: Negative for activity change, appetite change and unexpected weight change. HENT: Negative for ear pain and voice change. Cardiovascular: Negative for palpitations and leg swelling. Gastrointestinal: Negative for abdominal distention, abdominal pain, nausea and vomiting. Endocrine: Negative for cold intolerance and heat intolerance. Musculoskeletal: Negative for arthralgias, back pain, joint swelling and myalgias. Skin: Negative for rash. Neurological: Negative for tremors, seizures, speech difficulty, weakness, light-headedness and numbness. Hematological: Does not bruise/bleed easily. Psychiatric/Behavioral: Negative for confusion. The patient is not nervous/anxious. Past Medical History: Diagnosis Date Asthma Bronchitis Colitis COPD (chronic obstructive pulmonary disease) (HCC) Depression GERD (gastroesophageal reflux disease) Hypercholesterolemia Insomnia Obstructive sleep apnea Osteopenia Vitamin D deficiency Past Surgical History: Procedure Laterality Date APPENDECTOMY CT COLONOSCOPY 05/18/2019 CT COLONOSCOPY FINGER SURGERY Bilateral 11/03/2009 thumb FOOT SURGERY HYSTERECTOMY (CERVIX REMAINS) TONSILLECTOMY AND ADENOIDECTOMY Family History Problem Relation Age of Onset Heart attack Father age 54 Asthma Father Cancer Father age 48 Social History Tobacco Use Smoking status: Former Current packs/day: 0.00 Average packs/day: 1 pack/day for 44.0 years (44.0 ttl pk-yrs) Types: Cigarettes Start date: 03/03/1971 Quit date: 03/03/2015 Years since quittin.3 Tobacco comments: 1 ppd for 44 years, quit March 2015 Vaping Use Vaping status: Every Day Substances: Nicotine, Flavoring Devices: Disposable Substance Use Topics Alcohol use: Not Currently Comment: 1 drink per week Drug use: No Tobacco & Smokeless: Tobacco Use Smoking status: Former Packs/day: 0.00 Years: 1 pack/day for 44.0 years (44.0 ttl pk-yrs) Types: Cigarettes Start date: 03/03/1971 Quit date: 03/03/2020 Years since quittin.3 Smokeless tobacco: Not on file Tobacco comments: 1 ppd for 44 years, quit March 2015 Currently vaping nicotine products. Denies occupational exposures. Objective: Outpatient Medications as of 07/13/2024 Medication Sig albuterol 90 mcg/actuation inhaler Inhale 2 (two) puffs every 6 (six) hours as needed for wheezing . buPROPion (WELLBUTRIN XL) 300 MG 24 hr tablet Take 1 (one) tablet (300 mg total) by mouth daily . clobetasoL (TEMOVATE) 0.05 % scalp solution DULoxetine (CYMBALTA) 30 MG capsule Take 1 (one) capsule (30 mg total) by mouth daily Total of 90 mg with 60 mg prescription . DULoxetine (CYMBALTA) 60 MG capsule fexofenadine (ARIELLA) 180 MG tablet Take 1 (one) tablet (1 (more content not included)... [facility] 07-13-2024 History of Present illness Narrative [facility] [address] [facility] [address] [place] [id number] Name: Lola Drew Age: 74 y.o. : 1950 Today's date: 07/13/24 Outpatient Pulmonary Consult CC: Shortness of breath, cough and wheezing. HPI: Ms. Lola Drew is a 74-year-old white female former smoker who currently vapes nicotine products with COPD, lifelong asthma, chronic bronchitis, seasonal allergies and obstructive sleep apnea treated with CPAP who presents for new patient evaluation complaining of 2 weeks of shortness of breath, cough productive of yellow-green sputum, yellow-green nasal discharge, chest tightness and wheezing. She states the symptoms are what I get with exacerbations. She denies fever, chills, night sweats, hemoptysis, chest pain, GERD symptoms, dysphagia or unintended weight loss. She states that baseline she has fair exercise tolerance and minimal shortness of breath. She feels that she does well with her current medication regimen. She states that she has occasional nasal congestion at baseline but otherwise has no wheezing. She was diagnosed with sleep apnea many years ago and wears CPAP and has no residual symptoms. She states she has not seen a sleep physician in many years. She has been getting CPAP supplies intermittently through her primary care physician. She takes Trelegy 200 mcg once daily and finds it beneficial. She takes increased to daily. She rarely takes rescue albuterol. She has a nebulizer but states her medication for her nebulizer is old. She did use it with these recent symptoms and is unsure if it was of benefit. She is unsure if she has had antibiotics within the last 6 months. PFTs done 04/20/2024 revealed moderate airway obstruction with air trapping. She has a more than 73-ogxk-rssx smoking history. She states she has not had a CT scan of the chest in approximately 2 years. She states she has never had COVID-19 but got 3 vaccines. She has not had the most recent vaccine. She states she gets annual flu shots. She states she has been immunized appropriately for pneumococcal pneumonia, shingles and RSV. Review of Systems Constitutional: Negative for activity change, appetite change and unexpected weight change. HENT: Negative for ear pain and voice change. Cardiovascular: Negative for palpitations and leg swelling. Gastrointestinal: Negative for abdominal distention, abdominal pain, nausea and vomiting. Endocrine: Negative for cold intolerance and heat intolerance. Musculoskeletal: Negative for arthralgias, back pain, joint swelling and myalgias. Skin: Negative for rash. Neurological: Negative for tremors, seizures, speech difficulty, weakness, light-headedness and numbness. Hematological: Does not bruise/bleed easily. Psychiatric/Behavioral: Negative for confusion. The patient is not nervous/anxious. Past Medical History: Diagnosis Date Asthma Bronchitis Colitis COPD (chronic obstructive pulmonary disease) (HCC) Depression GERD (gastroesophageal reflux disease) Hypercholesterolemia Insomnia Obstructive sleep apnea Osteopenia Vitamin D deficiency Past Surgical History: Procedure Laterality Date APPENDECTOMY CT COLONOSCOPY 05/18/2019 CT COLONOSCOPY FINGER SURGERY Bilateral 11/03/2009 thumb FOOT SURGERY HYSTERECTOMY (CERVIX REMAINS) TONSILLECTOMY AND ADENOIDECTOMY Family History Problem Relation Age of Onset Heart attack Father age 54 Asthma Father Cancer Father age 48 Social History Tobacco Use Smoking status: Former Current packs/day: 0.00 Average packs/day: 1 pack/day for 44.0 years (44.0 ttl pk-yrs) Types: Cigarettes Start date: 03/03/1971 Quit date: 03/03/2015 Years since quittin.3 Tobacco comments: 1 ppd for 44 years, quit March 2015 Vaping Use Vaping status: Every Day Substances: Nicotine, Flavoring Devices: Disposable Substance Use Topics Alcohol use: Not Currently Comment: 1 drink per week Drug use: No Tobacco & Smokeless: Tobacco Use Smoking status: Former Packs/day: 0.00 Years: 1 pack/day for 44.0 years (44.0 ttl pk-yrs) Types: Cigarettes Start date: 03/03/1971 Quit date: 03/03/2020 Years since quittin.3 Smokeless tobacco: Not on file Tobacco comments: 1 ppd for 44 years, quit March 2015 Currently vaping nicotine products. Denies occupational exposures. Objective: Outpatient Medications as of 07/13/2024 Medication Sig albuterol 90 mcg/actuation inhaler Inhale 2 (two) puffs every 6 (six) hours as needed for wheezing . buPROPion (WELLBUTRIN XL) 300 MG 24 hr tablet Take 1 (one) tablet (300 mg total) by mouth daily . clobetasoL (TEMOVATE) 0.05 % scalp solution DULoxetine (CYMBALTA) 30 MG capsule Take 1 (one) capsule (30 mg total) by mouth daily Total of 90 mg with 60 mg prescription . DULoxetine (CYMBALTA) 60 MG capsule fexofenadine (ARIELLA) 180 MG tablet Take 1 (one) tablet (180 mg total) by mouth . fluconazole (DIFLUCAN) 100 MG tablet Take 1 (one) tablet (100 mg total) by mouth daily . fluticasone propionate (FLONASE) 50 mcg/actuation nasal spray Instill 1 (one) spray into each nostril daily . rieqtlmakze-xdcnauijy-islpmxqm (Trelegy Ellipta) 200-62.5-25 mcg DsDv Inhale 1 puff daily . furosemide (LASIX) 40 MG tablet Take 1 (one) tablet (40 mg total) by mouth 2 (two) times a day . levothyroxine (SYNTHROID, LEVOTHROID) 75 MCG tablet Take 1 (one) tablet (75 mcg total) by mouth daily . meclizine (ANTIVERT) 25 mg tablet Take 1 (one) tablet (25 mg total) by mouth 3 (three) times a day as needed for nausea . montelukast (SINGULAIR) 10 mg tablet Take 1 tablet (10 mg total) by mouth daily. NONFORMULARY CPAP 9cm H20 (DASCO) in [facility] ondansetron (ZOFRAN-ODT) 4 MG disintegrating tablet Dissolve 1 (one) tablet (4 mg total) on top of tongue every 6 to 8 hours as needed for nausea . pantoprazole (PROTONIX) 40 MG tablet Take by mouth . simvastatin (ZOCOR) 40 MG tablet Take 1 (one) tablet (40 mg total) by mouth daily . SUMAtriptan (IMITREX) 50 MG tablet Take 1 (one) tablet (50 mg total) by mouth every 2 (two) hours as needed for migraine Max of 200 mg in 24hrs, do not treat more than 3 times a week . [DISCONTINUED] Incruse Ellipta 62.5 mcg/actuation DsDv Inhale 1 (one) puff AM for * days . calcium carbonate-vitamin D3 600 mg-20 mcg (800 unit) Tab Take 1 tablet by mouth . cyanocobalamin, vitamin B-12, 2,500 mcg Tab Take 1 (one) tablet (2,500 mcg total) by mouth . ipratropium-albuteroL (DUO-NEB) 0.5-2.5 mg/3 ml nebulizer Take 3 mL by nebulization 3 (three) times a day . [DISCONTINUED] fluticasone-salmeterol (ADVAIR HFA) 230-21 mcg/actuation inhaler Inhale 2 puffs 2 (two) times a day. Allergies Allergen Reactions Amoxicillin Bee Venom Protein (Honey Bee) Swelling Sulfa (Sulfonamide Antibiotics) Penicillins Rash Vitals: 07/13/24 1015 07/13/24 1017 BP: (!) 152/76 (!) 167/98 BP Location: Right arm Right arm Patient Position: Sitting Sitting BP Cuff Size: X-large Adult Adult Pulse: (!) 53 (!) 54 Resp: 16 Temp: 98.5 F (36.9 C) SpO2: 92% 93% Weight: 108.4 kg (239 lb) Height: 5' 4 Physical Exam: Vitals reviewed Physical Exam Constitutional: General: She is not in acute distress. Appearance: Normal appearance. She is not toxic-appearing. HENT: Head: Normocephalic and atraumatic. Eyes: General: No scleral icterus. Extraocular Movements: Extraocular movements intact. Cardiovascular: Rate and Rhythm: Normal rate and regular rhythm. Pulses: Normal pulses. Heart sounds: Normal heart sounds. Pulmonary: Effort: Pulmonary effort is normal. Comments: Decreased air movement in all ryan. Fair air movement. There are faint expiratory wheezes. Coarse breath sounds. There are no rhonchi or crackles. Abdominal: General: Abdomen is flat. Bowel sounds are normal. Palpations: Abdomen is soft. Musculoskeletal: General: No swelling or tenderness. Right lower leg: Edema present. Left lower leg: Edema present. Skin: General: Skin is dry. Findings: No rash. Neurological: General: No focal deficit present. Mental Status: She is alert and oriented to person, place, and time. Psychiatric: Mood and Affect: Mood normal. Behavior: Behavior normal. PFT Results PFT Pre-bronchodilator 04/20/24 0845 FVC PREDICTED 2.91 FVC PRE 2.33 FVC % PRE PREDICTED 80 FVC PRE Z-SCORE FEV1 PREDICTED 2.19 FEV1 PRE 1.27 FEV1 % PRE PREDICTED 58 FEV1 PRE Z-SCORE FEV1/FVC PREDICTED 75 FEV1/FVC PRE 54 FEV1/FVC % PRE PREDICTED 72 FEV1/FVC PRE Z-SCORE FEF25/75 PREDICTED FEF25/75 ACTUAL PRE-BD FEF25/75 PRE % PREDICTED VRI28-13 PRE Z-SCORE PEAK FLOW PREDICTED PEAK FLOW ACTUAL PRE-BD PEAK FLOW PRE % PREDICTED SLOW VITAL CAPACITY PREDICTED SLOW VITAL CAPACITY SLOW VITAL CAPACITY % PREDICTED SLOW VITAL CAPACITY PRE Z-SCORE PFT Post-bronchodilator 04/20/24 0845 FVC POST 2.40 FVC % POST PREDICTED 83 FVC % CHANGE 3 FVC POST Z-SCORE FEV1 POST 1.36 FEV1 % POST PREDICTED 62 FEV1 % CHANGE 7 FEV1 POST Z-SCORE FEV1/FVC POST 56 FEV1/FVC % POST PREDICTED 75 FEV1/FVC % CHANGE 4 FEV1/FVC POST Z-SCORE FEF25/75 ACTUAL POST-BD FEF25/75 POST % PREDICTED FEF25/75 % CHANGE RAH79-16 POST Z-SCORE PEAK FLOW ACTUAL POST-BD PEAK FLOW POST % PREDICTED PEAK FLOW % CHANGE PFT Lung Volumes 04/20/24 0845 TLC 5.14 (% predicted) 107 RV 2.76 (% predicted) 141 PFT Diffusion 04/20/24 0845 DLCO PRE 18.6 DLCO % PRE PREDICTED 75 DLCO/VA PRE 4.23 DLCO/VA % PRE PREDICTED 124 DLCO UNCORRECTED FOR HEMOGLOBIN PREDICTED DLCO UNCORRECTED FOR HEMOGLOBIN DLCO UNCORRECTED FOR HEMOGLOBIN % PREDICTED DLCO UNCORRECTED FOR HEMOGLOBIN PRE Z-SCORE DLCO CORRECTED FOR HEMOGLOBIN PREDICTED DLCO CORRECTED FOR HEMOGLOBIN DLCO CORRECTED FOR HEMOGLOBIN % PREDICTED DLCO CORRECTED FOR HEMOGLOBIN PRE Z-SCORE KCO PREDICTED KCO PRE KCO % PRE PREDICTED KCO PRE Z-SCORE Assessment and Plan: ICD-10-CM ICD-9-CM 1. Acute bronchitis, unspecified organism J20.9 466.0 2. COPD with asthma (HCC) J44.89 493.20 Ambulatory referral to Pulmonology ipratropium-albuteroL (DUO-NEB) 0.5-2.5 mg/3 ml nebulizer 3. Simple chronic bronchitis (HCC) J41.0 491.0 Ambulatory referral to Pulmonology 4. Seasonal allergies J30.2 477.9 5. Nicotine dependence, cigarettes, in remission F17.211 V15.82 6. Vaping nicotine dependence, non-tobacco product F17.200 305.1 7. Shortness of breath R06.02 786.05 8. Wheezing R06.2 786.07 9. JOHNATHAN on CPAP G47.33 327.23 Ambulatory referral to Sleep Medicine (Regional Locations) 1. COPD with asthma, simple chronic bronchitis with acute bronchitis and ongoing shortness of breath, cough and wheezing in a former smoker-patient is actively wheezing and has symptoms as described. Will treat her with doxycycline 100 mg twice daily for 7 days and prednisone 40 mg once daily for 5 days. Continue Trelegy. DuoNeb for nebulizer. Continue rescue albuterol. Discontinue Incruse. Reviewed most recent pulmonary function testing. 2. Seasonal allergies-she should continue Singulair and Ariella. 3. Nicotine dependence cigarettes in remission and current vaping of nicotine-patient qualifies for annual lung screening CT scans of the chest. She was counseled regarding importance of screening and agrees to have a scan as recommended so it has been ordered for her. She was counseled extensively regarding importance of discontinuing all nicotine and all inhalational activities including vaping. 4. JOHNATHAN on CPAP-continue CPAP. Will refer her to sleep clinic for compliance monitoring and assistance in getting appropriate supplies. 5. Appropriate immunizations were reviewed and recommended. 6. She will be scheduled for a follow-up appointment in this clinic in approximately 3 months. Patricia Lozano MD documented in this encounter [facility] 04-27-2024 Telephone encounter Note LAST OV 04/12/24. NEXT OV SCHEDULED FOR 07/29/24. [facility] 04-27-2024 Miscellaneous Notes LAST OV 04/12/24. NEXT OV SCHEDULED FOR 07/29/24. documented in this encounter [facility] 04-19-2024 History of Present illness Narrative [facility] reached out to patient regarding [facility] referral placed by PCP. Left voicemail for patient with [facility]'s contact information. Awaiting return call. This is the second attempt. Patient does not have MyChart set up at this time. [facility] will follow up in 1-2 weeks. documented in this encounter [facility] 04-13-2024 History of Present illness Narrative [facility] covering for ILDEFONSO Freeman LISW-S. [facility] referral from Sara Alvarez MD re: depression. Call to pt to discuss referral. No Answer, left vm with [facility] contact info encouraging pt to call back to discuss referral further. F/u [facility] will return call in one week. documented in this encounter [facility] 04-12-2024 Note Chest x-ray looks go od, no concerns AUTHENTICATED BY SARA ALVAREZ, ON 04/14/2024 09:16:07 [facility] 04-12-2024 Instructions Sara Alvarez MD - 04/12/2024 1:43 PM EDT Problem List Items Addressed This Visit Respiratory COPD with asthma (HCC) - Primary Relevant Medications Incruse Ellipta 62.5 mcg/actuation DsDv albuterol 90 mcg/actuation inhaler Other Relevant Orders CBC and Differential Ambulatory referral to Pulmonology Other Visit Diagnoses Current moderate episode of major depressive disorder without prior episode (HCC) Relevant Medications DULoxetine (CYMBALTA) 30 MG capsule Other Relevant Orders Ambulatory Ref to [place] [facility] Education Administrator Severe obesity (HCC) Relevant Orders TSH with Reflex Free T4 Microalbumin/Creatinine Ratio, UR Random Hemoglobin A1c Comprehensive Metabolic Panel Hyperlipidemia, unspecified hyperlipidemia type Relevant Orders Lipid Panel COPD with acute exacerbation (HCC) Relevant Medications Incruse Ellipta 62.5 mcg/actuation DsDv albuterol 90 mcg/actuation inhaler predniSONE (DELTASONE) 20 MG tablet doxycycline hyclate (VIBRA-TABS) 100 MG tablet Other Relevant Orders XR Chest AP/PA and LAT Ambulatory referral to Pulmonology If any referrals were placed at the time of your visit please allow 2 weeks for processing. If you haven't heard from anyone within 2 weeks please contact my office so we can look into the status of your referral. If you were given any labs today please ensure they are completed according to the directions given. Once labs are completed please allow 1-2 weeks for us to receive the results, review them, and let you know what steps, if any, are needed next. If you haven't heard from us after that please call to inquire. If labs were ordered to be done PRIOR to your next visit we will discuss the results at the time of your office visit. If any procedures or imaging studies were ordered that must be prior authorized please give us 2 weeks to get them approved. Once approved someone should call you to schedule them or give you a date and time that they were scheduled for. If you haven't heard anything within 2 weeks of the office visit please call the office so we can look into their status. Customer Service/Billing Questions: [phone] MyChart Assistance: [phone] or [phone] Financial Assistance: [phone] or [phone] Friday 7 am to 5 pm Friday 7 am to 5 pm Friday closed 7 am to 5 pm Friday 8 am to 2 pm documented in this encounter [facility] 04-12-2024 History of Present illness Narrative Subjective Patient ID: Lola Drew is a 73 y.o. female here for Chief Complaint Patient presents with Establish Care SOB, and congestion symptoms x's 3 weeks After discussing the use of ambient listening and audio recording in generating medical documentation, the patient verbally consented to use of this technology for today's visit. History of Present Illness The patient has been under the care of Dr. Alfaro for approximately 17 years. SOB: She reports experiencing shortness of breath and congestion, which she attributes to her 's illness. 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 She has been experiencing allergies for the past 3 weeks, characterized by postnasal drip and choking sensations extending into her chest. Despite these symptoms, she continues to feel unwell. She has been diagnosed with Chronic Obstructive Pulmonary Disease (COPD) and underwent pulmonary function tests approximately 2 years ago. 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 Dr. Valadez initially attributed her symptoms to asthma rather than COPD. Her current medications include Incruse Ellipta, Advair, and albuterol. She has been on a combination of montelukast and Advair for several years. Over the past 3 weeks, she has been experiencing a cough and difficulty breathing, which she initially attributed to allergies. She has not sought medical attention for her symptoms. She quit smoking in 2014 and currently vapes. She has previously tried Chantix for smoking cessation was successful with it.. She denies any cardiac issues, heart attacks, or stents. Her blood pressure is typically 120/60. Depression and anxiety: Feels overwhelmed with her 's health, s has to take care of a lot of stuff around the house and give him his medicine, does not have a lot of support at home or around with other family members. She is currently taking Cymbalta 60 mg and Wellbutrin 300 mg once daily. Hyperlipidemia: She takes simvastatin 40 mg every day for cholesterol. Scalp itching: She uses clobetasol liquid for head itching. Intertrigo: She uses Diflucan for anti-yeast infection under her breasts and stomach. Ankle edema: She takes potassium because she takes water pills. She takes Imitrex for migraines as needed. Headaches: She went to the emergency room because she was so dizzy that she could hardly stand up. She was told it was a migraine. She has not taken any meclizine since. JOHNATHAN: She uses a CPAP machine every night. Hypothyroidism: She takes levothyroxine for her thyroid. Her had a massive heart attack in 01/2023. Past Medical History: Diagnosis Date Asthma Bronchitis Colitis COPD (chronic obstructive pulmonary disease) (HCC) Depression GERD (gastroesophageal reflux disease) Hypercholesterolemia Insomnia Obstructive sleep apnea Osteopenia Vitamin D deficiency Past Surgical History: Procedure Laterality Date APPENDECTOMY CT COLONOSCOPY 05/18/2019 CT COLONOSCOPY FINGER SURGERY Bilateral 11/03/2009 thumb FOOT SURGERY HYSTERECTOMY (CERVIX REMAINS) TONSILLECTOMY AND ADENOIDECTOMY Family History Problem Relation Age of Onset Heart attack Father age 54 Asthma Father Cancer Father age 48 Social History Tobacco Use Smoking status: Former Packs/day: 1.00 Years: 44.00 Additional pack years: 0.00 Total pack years: 44.00 Types: Cigarettes Quit date: 03/03/2015 Years since quittin.1 Tobacco comments: 1 ppd for 44 years, quit March 2015 Substance Use Topics Alcohol use: Yes Alcohol/week: 0.0 standard drinks of alcohol Comment: 1 drink per week Drug use: No Review of Systems Vitals: 04/12/24 1250 04/12/24 1257 BP: (!) 152/88 129/84 BP Location: Right arm Right arm Patient Position: Sitting Sitting BP Cuff Size: X-large Adult X-large Adult Pulse: (!) 58 (!) 58 Resp: 16 Temp: 97.8 F (36.6 C) TempSrc: Temporal SpO2: 93% Weight: 105.7 kg (233 lb) Height: 5' 4 Estimated body mass index is 39.99 kg/m as calculated from the following: Height as of this encounter: 5' 4. Weight as of this encounter: 105.7 kg (233 lb). Physical Exam Constitutional: General: She is not in acute distress. Appearance: She is not ill-appearing. HENT: Head: Normocephalic and atraumatic. Nose: Nose normal. Mouth/Throat: Mouth: Mucous membranes are moist. Pharynx: Oropharynx is clear. No oropharyngeal exudate or posterior oropharyngeal erythema. Eyes: Extraocular Movements: Extraocular movements intact. Conjunctiva/sclera: Conjunctivae normal. Pupils: Pupils are equal, round, and reactive to light. Cardiovascular: Rate and Rhythm: Normal rate and regular rhythm. Pulses: Normal pulses. Heart sounds: Normal heart sounds. No murmur heard. No gallop. Pulmonary: Effort: Pulmonary effort is normal. Breath sounds: Rhonchi (generalized) present. No wheezing or rales. Chest: Chest wall: No tenderness. Abdominal: General: Abdomen is flat. Bowel sounds are normal. There is no distension. Palpations: Abdomen is soft. There is no mass. Tenderness: There is no abdominal tenderness. There is no right CVA tenderness, left CVA tenderness, guarding or rebound. Musculoskeletal: General: No tenderness. Normal range of motion. Cervical back: Normal range of motion and neck supple. No rigidity. No muscular tenderness. Right lower leg: No edema. Left lower leg: No edema. Lymphadenopathy: Cervical: No cervical adenopathy. Skin: General: Skin is warm. Findings: No erythema or rash. Neurological: General: No focal deficit present. Mental Status: She is alert and oriented to person, place, and time. Sensory: No sensory deficit. Motor: No weakness. Gait: Gait normal. Psychiatric: Mood and Affect: Mood normal. Behavior: Behavior normal. Thought Content: Thought content normal. Judgment: Judgment normal. OARRS/NARxCHECK Report Received and Assessed: Date controlled substance agreement signed: No data found Date of last drug screen: PHQ9: Over the last 2 weeks, how often have you been bothered by any of the following problems? Little interest or pleasure in doing things: More than half the days Feeling down, depressed, or hopeless: More than half the days PHQ-2 Total Score: 4 Trouble falling or staying asleep, or sleeping too much: Nearly every day Feeling tired or having little energy: Nearly every day Poor appetite or overeating: Nearly every day Feeling bad about yourself - or that you are a failure or have let yourself or your family down: Nearly every day Trouble concentrating on things, such as reading the newspaper or watching television: Nearly every day Moving or speaking so slowly that other people could have noticed. Or the opposite - being so fidgety or restless that you have been moving around a lot more than usual: More than half the days Thoughts that you would be better off , or of hurting yourself in some way: Not at all PHQ-9 Total Score: 21 If you checked off any problems, how difficult have these problems made it for you to do your work, take care of things at home, or get along with other people?: Somewhat difficult SOPHY-7 Over the last 2 weeks, how often have you been bothered by the following problems? Feeling nervous, anxious or on edge: Nearly every day Not being able to stop or control worrying: Nearly every day Worrying too much about different things: Nearly every day Trouble relaxing: Over half the days Being so restless that it is hard to sit still: Several days Becoming easily annoyed or irritable: Nearly every day Feeling afraid as if something awful might happen: Over half the days SOPHY-7 Score: (!) 17 Tobacco Counseling: Counseling given: Not Answered Tobacco comments: 1 ppd for 44 years, quit March 2015 Reviewed by Provider: Patient's Medications New Prescriptions DOXYCYCLINE HYCLATE (VIBRA-TABS) 100 MG TABLET Take 1 (one) tablet (100 mg total) by mouth 2 (two) times a day for 5 days . DULOXETINE (CYMBALTA) 30 MG CAPSULE Take 1 (one) capsule (30 mg total) by mouth daily Total of 90 mg with 60 mg prescription . PREDNISONE (DELTASONE) 20 MG TABLET Take 2 (two) tablets (40 mg total) by mouth daily for 5 days . Previous Medications ALBUTEROL 90 MCG/ACTUATION INHALER Inhale 2 (two) puffs every 6 (six) hours as needed for wheezing . BUPROPION (WELLBUTRIN XL) 300 MG 24 HR TABLET CALCIUM CARBONATE-VITAMIN D3 600 MG-20 MCG (800 UNIT) TAB Take 1 tablet by mouth . CLOBETASOL (TEMOVATE) 0.05 % SCALP SOLUTION CYANOCOBALAMIN, VITAMIN B-12, 2,500 MCG TAB Take 1 (one) tablet (2,500 mcg total) by mouth . DULOXETINE (CYMBALTA) 60 MG CAPSULE FEXOFENADINE (ARIELLA) 180 MG TABLET Take 1 (one) tablet (180 mg total) by mouth . FLUCONAZOLE (DIFLUCAN) 100 MG TABLET Take 1 (one) tablet (100 mg total) by mouth daily . FLUTICASONE PROPIONATE (FLONASE) 50 MCG/ACTUATION NASAL SPRAY FLUTICASONE-SALMETEROL (ADVAIR HFA) 230-21 MCG/ACTUATION INHALER Inhale 2 puffs 2 (two) times a day. FUROSEMIDE (LASIX) 40 MG TABLET Take 1 (one) tablet (40 mg total) by mouth 2 (two) times a day . INCRUSE ELLIPTA 62.5 MCG/ACTUATION DSDV LEVOTHYROXINE (SYNTHROID, LEVOTHROID) 75 MCG TABLET Take 1 (one) tablet (75 mcg total) by mouth daily . MECLIZINE (ANTIVERT) 25 MG TABLET Take 1 (one) tablet (25 mg total) by mouth 3 (three) times a day as needed for nausea . MONTELUKAST (SINGULAIR) 10 MG TABLET Take 1 tablet (10 mg total) by mouth daily. NONFORMULARY CPAP 9cm H20 (DASCO) in [facility] ONDANSETRON (ZOFRAN-ODT) 4 MG DISINTEGRATING TABLET Dissolve 1 (one) tablet (4 mg total) on top of tongue every 6 to 8 hours as needed for nausea . PANTOPRAZOLE (PROTONIX) 40 MG TABLET Take by mouth . POTASSIUM CHLORIDE SA (K-DUR,KLOR-CON) 20 MEQ TABLET Take 1 (one) tablet (20 mEq total) by mouth daily . SIMVASTATIN (ZOCOR) 40 MG TABLET Take 1 (one) tablet (40 mg total) by mouth daily . SUMATRIPTAN (IMITREX) 50 MG TABLET Take 1 (one) tablet (50 mg total) by mouth every 2 (two) hours as needed for migraine Max of 200 mg in 24hrs, do not treat more than 3 times a week . Modified Medications No medications on file Discontinued Medications BUPROPION (WELLBUTRIN XL) 150 MG 24 HR TABLET Take 2 (two) tablets (300 mg total) by mouth daily . DIAZEPAM (VALIUM) 5 MG TABLET Take 1 (one) tablet (5 mg total) by mouth 2 (two) times a day as needed (dizziness) . AZNDYSCC-VVD-VOHR-FA-LUTEIN (CENTRUM SILVER WOMEN) 8 MG IRON-400 MCG-300 MCG TAB Take 1 tablet by mouth . QUETIAPINE (SEROQUEL) 25 MG TABLET Take by mouth . TIOTROPIUM (SPIRIVA WITH HANDIHALER) [address] 1 capsule (18 mcg total) into inhaler and inhale daily. Health Maintenance Due Topic Date Due Hepatitis C Screening Never done Zoster Vaccines (2 of 3) 01/15/2011 Falls Risk Assessment Never done Mammogram 08/30/2015 COVID-19 Vaccine ( season) 2023 Low-dose CT Lung Cancer Screen 08/26/2023 Assessment & Plan Problem List Items Addressed This Visit Respiratory COPD with asthma (HCC) - Primary Relevant Medications Incruse Ellipta 62.5 mcg/actuation DsDv albuterol 90 mcg/actuation inhaler Other Relevant Orders CBC and Differential Ambulatory referral to Pulmonology Other Visit Diagnoses Current moderate episode of major depressive disorder without prior episode (HCC) Relevant Medications DULoxetine (CYMBALTA) 30 MG capsule Other Relevant Orders Ambulatory Ref to [place] [facility] Education Administrator Severe obesity (HCC) Relevant Orders TSH with Reflex Free T4 Microalbumin/Creatinine Ratio, UR Random Hemoglobin A1c Comprehensive Metabolic Panel Hyperlipidemia, unspecified hyperlipidemia type Relevant Orders Lipid Panel COPD with acute exacerbation (HCC) Relevant Medications Incruse Ellipta 62.5 mcg/actuation DsDv albuterol 90 mcg/actuation inhaler predniSONE (DELTASONE) 20 MG tablet doxycycline hyclate (VIBRA-TABS) 100 MG tablet Other Relevant Orders XR Chest AP/PA and LAT Ambulatory referral to Pulmonology Assessment & Plan Assessment & Plan 1. Chronic obstructive pulmonary disease. COPD exacerbation highly suspected, A chest x-ray has been ordered. A 5-day course of prednisone, two tablets simultaneously, has been prescribed. Doxycycline has been prescribed, to be taken twice daily for a duration of 5 days. A referral to pulmonology has been made to optimize her inhaler therapy. Might be a good candidate for pulmonary rehab we will discuss that in the future visits. I also mention to her if her shortness of breath is not better after optimizing her medication management for COPD, might need to evaluate further with her cardiac condition with repeating echo since it was last done in 2019 along with stress testing. 2. Depression. Duloxetine 30 mg has been prescribed to increase the dose of duloxetine to 90 mg. A consultation with a counselor has been recommended. Follow-up A follow-up appointment is scheduled for 3 months from now. My ongoing relationship with Lola Drew requires continued responsibility and cognitive effort of being the focal point for all services related to chronic condition(s). Return in about 3 months (around 07/13/2024) for Follow Up. SARA ALVAREZ MD [facility] [address] [facility] [address] [facility] [id number] Dept: [phone] 04/12/2024 1:43 PM Depression Screening Little interest or pleasure in doing things 2 Feeling down, depressed, or hopeless 2 PHQ-2 Total Score 4 Trouble falling or staying asleep, or sleeping too much 3 Feeling tired or having little energy 3 Poor appetite or overeating 3 Feeling bad about yourself - or that you are a failure or have let yourself or your family down 3 Trouble concentrating on things, such as reading the newspaper or watching television 3 Moving or speaking so slowly that other people could have noticed. Or the opposite - being so fidgety or restless that you have been moving around a lot more than usual 2 Thoughts that you would be better off , or of hurting yourself in some way 0 PHQ-9 Total Score 21 If you checked off any problems, how difficult have these problems made it for you to do your work, take care of things at home, or get along with other people? Somewhat difficult documented in this encounter [facility] 11-17-2023 History of Present illness Narrative Subjective Patient ID: Lola Drew is a 73 y.o. female who presents for Follow-up. HPI Her has been sick. She just today started to cough up a little bit more stuff also very cold today and that can happen pulse ox is 92% on room air. No respiratory distress no troubles talking. She is having some coughing On exam she has rhonchi in both lungs no wheezing or rales. Just completed the blood test today so we will see how we A1c is with the hyperglycemia. Thyroidism stable on medication. Labs done today. Mood stable on medication. Continue medications. Continue other breathing medications Do her best to stay out of the cold. Z-Aleyda Since its early on in the illness, and it is very cold outside for the next week, will do a prednisone taper. Office visit set for 6 months, will need lab orders. Review of Systems Constitutional: Positive for fatigue. Negative for chills and fever. HENT: Positive for congestion. Respiratory: Positive for cough and shortness of breath. Cardiovascular: Negative for chest pain and palpitations. Gastrointestinal: Negative for constipation, diarrhea and nausea. Neurological: Negative for dizziness and headaches. Objective BP 126/72 Pulse 68 Ht 1.626 m (5' 4) Wt 110 kg (242 lb 6.4 oz) SpO2 92% BMI 41.61 kg/m Physical Exam Constitutional: Appearance: Normal appearance. HENT: Head: Normocephalic and atraumatic. Cardiovascular: Rate and Rhythm: Normal rate and regular rhythm. Heart sounds: Normal heart sounds. Pulmonary: Effort: Pulmonary effort is normal. No respiratory distress. Breath sounds: Rhonchi present. No wheezing or rales. Skin: General: Skin is warm and dry. Neurological: General: No focal deficit present. Mental Status: She is alert and oriented to person, place, and time. Psychiatric: Mood and Affect: Mood normal. Behavior: Behavior normal. Thought Content: Thought content normal. Judgment: Judgment normal. Assessment/Plan Problem List Items Addressed This Visit ICD-10-CM COPD (chronic obstructive pulmonary disease) ([facility]) - Primary J44.9 Relevant Medications azithromycin (Zithromax) 250 mg tablet predniSONE (Deltasone) 10 mg tablet Current moderate episode of major depressive disorder without prior episode ([facility]) F32.1 Hyperglycemia R73.9 Hypothyroidism E03.9 Sleep apnea G47.30 documented in this encounter [facility] Work Phone: 2023 History of Present illness Narrative [facility] [address] [facility] [place] [address] [facility] [id number] Dept: [phone] MD Lola Dhillon 73 y.o. female Patient presents with a chief complaint of Dizziness Temp 98.4 F (36.9 C) Ht 5' 4 Wt 107.5 kg (237 lb) BMI 40.68 kg/m History of Presenting Illness: The patient/caregiver reports a history of complaint with the following features: Onset: started in last year, most recent episode 2-3 weeks ago Timing: occurs after getting out of bed Duration: last 4-5 hours Quality: 2 episodes of vertigo, unable to walk, movements seems extreme, balance was off Location: felt like inside of head Severity: pain none Risk factors: right ear drainage every night, history of migraines Alleviating factors: laying down, holding on to stable object Aggravating factors: getting out of bed Associated factors: no hearing, no ringing in ear She was seen in the last visit with a CT scan done. Review of systems covering 10 systems is reviewed and pertinent positives and negatives are noted as above. Past Medical History: Diagnosis Date Asthma Bronchitis Colitis COPD (chronic obstructive pulmonary disease) ([facility]) Depression GERD (gastroesophageal reflux disease) Hypercholesterolemia Insomnia Obstructive sleep apnea Osteopenia Vitamin D deficiency Current Outpatient Medications: buPROPion (WELLBUTRIN XL) 150 MG 24 hr tablet, Take 2 (two) tablets (300 mg total) by mouth daily ., Disp: , Rfl: calcium carbonate-vitamin D3 600 mg-20 mcg (800 unit) Tab, Take 1 tablet by mouth ., Disp: , Rfl: clobetasoL (TEMOVATE) 0.05 % scalp solution, , Disp: , Rfl: cyanocobalamin, vitamin B-12, 2,500 mcg Tab, Take 1 (one) tablet (2,500 mcg total) by mouth ., Disp: , Rfl: DULoxetine (CYMBALTA) 60 MG capsule, , Disp: , Rfl: fexofenadine (ARIELLA) 180 MG tablet, Take 1 (one) tablet (180 mg total) by mouth ., Disp: , Rfl: fluconazole (DIFLUCAN) 100 MG tablet, Take 1 (one) tablet (100 mg total) by mouth daily ., Disp: , Rfl: fluticasone propionate (FLONASE) 50 mcg/actuation nasal spray, , Disp: , Rfl: fluticasone-salmeterol (ADVAIR HFA) 230-21 mcg/actuation inhaler, Inhale 2 puffs 2 (two) times a day., Disp: 3 Inhaler, Rfl: 4 furosemide (LASIX) 40 MG tablet, Take 1 (one) tablet (40 mg total) by mouth 2 (two) times a day ., Disp: , Rfl: levothyroxine (SYNTHROID, LEVOTHROID) 75 MCG tablet, Take 1 (one) tablet (75 mcg total) by mouth daily ., Disp: , Rfl: meclizine (ANTIVERT) 25 mg tablet, Take 1 (one) tablet (25 mg total) by mouth 3 (three) times a day as needed for nausea ., Disp: 30 tablet, Rfl: 0 montelukast (SINGULAIR) 10 mg tablet, Take 1 tablet (10 mg total) by mouth daily., Disp: 90 tablet, Rfl: 4 xzseobto-bpm-rvrr-FA-lutein (Centrum Silver Women) 8 mg iron-400 mcg-300 mcg Tab, Take 1 tablet by mouth ., Disp: , Rfl: NONFORMULARY, CPAP 9cm H20 (DASKY) in [facility], Disp: , Rfl: pantoprazole (PROTONIX) 40 MG tablet, Take by mouth ., Disp: , Rfl: potassium chloride SA (K-DUR,KLOR-CON) 20 MEQ tablet, Take 1 (one) tablet (20 mEq total) by mouth daily ., Disp: 30 tablet, Rfl: 11 QUEtiapine (SEROQUEL) 25 MG tablet, Take by mouth ., Disp: , Rfl: simvastatin (ZOCOR) 40 MG tablet, Take 1 (one) tablet (40 mg total) by mouth daily ., Disp: , Rfl: tiotropium (SPIRIVA WITH HANDIHALER) 18 mcg inhalation capsule, Place 1 capsule (18 mcg total) into inhaler and inhale daily. (Patient taking differently: Place 1 (one) capsule (18 mcg total) into inhaler and inhale 2 (two) times a day .), Disp: 90 capsule, Rfl: 4 buPROPion (WELLBUTRIN XL) 300 MG 24 hr tablet, , Disp: , Rfl: diazePAM (VALIUM) 5 MG tablet, Take 1 (one) tablet (5 mg total) by mouth 2 (two) times a day as needed (dizziness) . (Patient not taking: Reported on 2023 .), Disp: 8 tablet, Rfl: 0 ondansetron (ZOFRAN-ODT) 4 MG disintegrating tablet, Dissolve 1 (one) tablet (4 mg total) on top of tongue every 6 to 8 hours as needed for nausea . (Patient not taking: Reported on 2023 .), Disp: 20 tablet, Rfl: 0 SUMAtriptan (IMITREX) 50 MG tablet, Take 1 (one) tablet (50 mg total) by mouth every 2 (two) hours as needed for migraine Max of 200 mg in 24hrs, do not treat more than 3 times a week ., Disp: 10 tablet, Rfl: 0 Allergies Allergen Reactions Amoxicillin Bee Venom Protein (Honey Bee) Swelling Sulfa (Sulfonamide Antibiotics) Penicillins Rash Past Surgical History: Procedure Laterality Date APPENDECTOMY FINGER SURGERY Bilateral 2009 thumb TONSILLECTOMY AND ADENOIDECTOMY Social History Socioeconomic History Marital status: Occupational History Employer: [employer] Tobacco Use Smoking status: Former Packs/day: 1.00 Years: 44.00 Additional pack years: 0.00 Total pack years: 44.00 Types: Cigarettes Quit date: 03/03/2015 Years since quittin.2 Tobacco comments: 1 ppd for 44 years, quit March 2015 Substance and Sexual Activity Alcohol use: Yes Alcohol/week: 0.0 standard drinks of alcohol Comment: 1 drink per week Drug use: No Family History Problem Relation Age of Onset Heart attack Father age 54 Asthma Father Cancer Father age 48 PHYSICAL EXAM: The patient was examined today 2023 with findings as follows: CONSTITUTIONAL: General Appearance: well-appearing, nontoxic, alert, no acute distress Communication: understanding at normal conversational tones, normal voicing, speech intelligible HEAD/FACE: Head: atraumatic, normocephalic, no lesions Facial Inspection: no lesions, healthy skin Facial Strength: motor strength normal, symmetric strength, symmetric movement Sinuses: no sinus tenderness Salivary Glands: no enlargements of parotid glands, no tenderness of parotid glands, no masses of parotid glands, clear salivary flow on palpation from Stensen's ducts, no duct stones of Stensen's duct, no enlargement of submandibular glands, no tenderness of submandibular glands, no masses of submandibular glands, clear salivary flow from Dazey's ducts, no stones of Dazey's ducts Temporomandibular Joint: no crepitus with motion, no tenderness on palpation, no trismus, motion symmetric EYES: Pupils: PERRLA, extra-ocular movements intact, no nystagmus, sclera white, no redness of eyes, no watering of eyes EARS: Bilateral External Ears: no pits, no tags Right External Ear: normally formed, sebaceous cyst of pattie evacuated, no mastoid tenderness Left External Ear: normally formed, no lesions, no mastoid tenderness Right External Auditory Canal: normal, healthy skin, obstructing cerumen deeply impacted anteriorly, no discharge Left External Auditory Canal: normal, healthy skin, no obstructing cerumen, no discharge Right Tympanic Membrane: normal landmarks, translucent, mobile to pneumatic otoscopy, no perforation Left Tympanic Membrane: normal landmarks, translucent, mobile to pneumatic otoscopy, no perforation Hearing: intact to spoken voice NOSE: Nasal Skin: no lesions, no lacerations, no scars Nasal Dorsum: symmetric with no visible or palpable deformities Nasal Tip: normal symmetric nasal tip, normal nasal valves Nasal Mucosa: normal, pink and moist Septum: not markedly deformed, midline, no exposed vessels, no bleeding, no septal granuloma Turbinates: normal size and conformation Nasopharynx: normal ORAL CAVITY/MOUTH: Lips, teeth, gums: normal lips, normal gums, dentition intact, no dental pain on palpation Oral Mucosa: normal, moist, no lesions Palate: normal hard palate, normal soft palate, symmetric palatal elevation Floor of Mouth: normal floor of mouth Tongue: normal tongue, no lesions, no edema, no masses, normal mucosa, mobile Tonsils: normal tonsils, symmetric, no lesions Posterior pharynx: normal NECK: Neck: no masses, trachea midline, normal range of motion, no cysts or pits, no tenderness to palpation Thyroid: normal thyroid, no enlargement, no tenderness, no nodules LYMPH NODES: Cervical: no palpable lymph node enlargement Axillary: no palpable lymph node enlargement RESPIRATORY: Inspection/Auscultation: good air movement, chest expands symmetrically, normal breath sounds, no wheezing, no stridor CARDIOVASCULAR SYSTEM: Auscultation: regular rate and rhythm, carotid pulse normal, no carotid thrills, no carotid bruits Observation/Palpation of Peripheral Vascular System: no varicosities, no cyanosis, no edema ABDOMEN: Inspection and Palpation: abdomen soft, non-tender, non-distended MUSCULOSKELETAL SYSTEM: Musculoskeletal System: extremity range of motion intact, strength symmetric and full upper extremities, strength symmetric and full lower extremities SKIN: General Appearance: no lesions, warm and dry, normal turgor, no bruising NEUROLOGICAL SYSTEM: Orientation: oriented to time, oriented to place, oriented to person Cranial Nerves: Cranial Nerves II-XII intact, normal facial movement, normal facial sensation to touch, normal corneal reflex, normal shoulder shrug, normal detection of odorants and normal laryngeal elevation Cerebellar: normal gait, normal finger-nose pointing and negative romberg's sign Vestibulocular: [place]-Hallpike testing negative, Fukuda step test normal, no ocular pursuit defects, and no head-shaking test induced nystagmus PSYCHIATRIC: Mood and affect: normal mood, normal affect CERUMEN REMOVAL PROCEDURE NOTE ([id number]) PROCEDURE PERFORMED BY: Chris Grider MD PROCEDURE DATE: 2023 With the patient and/or caregiver's consent, the patient is positioned in the exam chair and an otic speculum placed into the right ear canal. Under binocular microscopic visualization there is noted to be cerumen impacting the tympanic membrane. This is then removed with a right angle hook revealing a healthy tympanic membrane without evidence of middle ear effusion or perforation. On the left, no debris is noted. The patient tolerated the procedure well without complication. Assessment and Plan: She presents with 2 episodes of vertigo lasting several hours. No auditory symptoms are reported. Given this and her history of migraines, vestibular migraine seems most likely. Audiometric testing is performed today and independently reviewed and interpreted. This shows a mild sloping loss bilaterally with normal speech discrimination. Tympanometry shows normal compliance consistent with normally ventilated middle ear spaces. This is not suggestive of Meniere's disease, a.though recovery of hearing between episodes can be seen. I have advised the patient and/or caregiver that the symptoms and exam findings are most consistent with vertigo of uncertain cause. We have discussed that the symptoms can arise from abnormalities of the balance organ of the ear, vision impairment, poor coordination of movements by the brain, weakness or reduced sensation of the extremities, or other causes related to metabolic abnormalities or circulatory problems. We have discussed that other evaluation may be needed and that ongoing follow-up is recommended. The patient and/or caregiver is to notify me of any acute change or worsening of symptoms for sooner evaluation. We have discussed that physical therapy for vestibular rehabilitation can sometimes be helpful when no other treatable cause is identified. The patient and/or caregiver is able to state an understanding of these recommendations and is agreeable to the treatment plan. 1. Vestibular migraine SUMAtriptan (IMITREX) 50 MG tablet 2. Impacted cerumen of right ear 3. Sebaceous cyst of ear 4. Sensorineural hearing loss, bilateral 5. Vertigo Ambulatory referral to Audiology No follow-ups on file. The patient and/or caregiver is to notify the office if no improvement or worsening of symptoms is noted prior to the scheduled follow-up for sooner evaluation. The patient and/or caregiver is able to state an understanding of these recommendations and is agreeable to the treatment plan. --Chris Grider MD on 2023 at 3:03 PM An electronic signature was used to authenticate this note. Review of Systems Constitutional: Negative. HENT: Positive for ear discharge, postnasal drip, sinus pressure and sinus pain. Eyes: Positive for visual disturbance. Respiratory: Negative. Cardiovascular: Negative. Gastrointestinal: Negative. Endocrine: Negative. Genitourinary: Negative. Musculoskeletal: Positive for neck pain and neck stiffness. Skin: Negative. Allergic/Immunologic: Positive for environmental allergies. Neurological: Positive for dizziness and headaches. Psychiatric/Behavioral: Negative. documented in this encounter [facility] 05-15-2023 History of Present illness Narrative Subjective Reason for Visit: Lola Drew is an 72 y.o. female here for a Medicare Wellness visit. Past Medical, Surgical, and Family History reviewed and updated in chart. Reviewed all medications by prescribing practitioner or clinical pharmacist (such as prescriptions, OTCs, herbal therapies and supplements) and documented in the medical record. HPI COPD is stable on medications. 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 I will follow things for now we can do referral in the future if needed. Mood is okay on the medications, mood this spring and summer has been better than it has recently. Swelling of the legs is when she uses the Lasix with the potassium. Continue medications. Labs stable. GERD is stable on medication CPAP is fine she is using the medicine 7 out of 7 days of the week. Helps her. But the machine is giving the morning saying the motor is the end of its useful life. Order done for a new CPAP machine. Hyperglycemia A1c is 5.6. Not on medications. In 6 months Patient Care Team: Steven Alfaro MD as PCP - General Steven Alfaro MD as PCP - [facility] [employer] PCP Review of Systems Constitutional: Negative for fatigue. Eyes: Negative for visual disturbance. Respiratory: Positive for cough and shortness of breath. Negative for chest tightness. Cardiovascular: Negative for chest pain and palpitations. Gastrointestinal: Negative for abdominal pain, constipation and diarrhea. Musculoskeletal: Positive for arthralgias. Skin: Negative for rash. Neurological: Negative for headaches. Objective Vitals: BP 119/72 Pulse 64 Ht 1.626 m (5' 4) Wt 106 kg (234 lb 4.8 oz) SpO2 98% BMI 40.22 kg/m Physical Exam Constitutional: Appearance: Normal appearance. HENT: Head: Normocephalic and atraumatic. Skin: General: Skin is warm and dry. Neurological: General: No focal deficit present. Mental Status: She is alert and oriented to person, place, and time. Gait: Gait normal. Psychiatric: Mood and Affect: Mood normal. Behavior: Behavior normal. Thought Content: Thought content normal. Judgment: Judgment normal. Assessment/Plan Problem List Items Addressed This Visit COPD (chronic obstructive pulmonary disease) ([facility]) Relevant Medications umeclidinium (Incruse Ellipta) 62.5 mcg/actuation inhalation fluticasone propion-salmeteroL (Advair HFA) 230-21 mcg/actuation inhaler albuterol 90 mcg/actuation inhaler Hyperlipidemia Relevant Medications simvastatin (Zocor) 40 mg tablet Anxiety Relevant Medications DULoxetine (Cymbalta) [address] capsule buPROPion XL (Wellbutrin XL) 300 mg 24 hr tablet GERD (gastroesophageal reflux disease) Relevant Medications pantoprazole (ProtoNix) 40 mg EC tablet Hyperglycemia Relevant Orders CBC Comprehensive Metabolic Panel Hemoglobin A1C Hypothyroidism Relevant Orders Thyroid Stimulating Hormone Sleep apnea Edema of both lower legs Relevant Medications potassium chloride CR (Klor-Con M20) 20 mEq ER tablet furosemide (Lasix) 40 mg tablet Other Visit Diagnoses Routine general medical examination at health care facility - Primary Relevant Medications valACYclovir (Valtrex) 500 mg tablet documented in this encounter [facility] Work Phone: Evaluation note Diagnosis Onset Date Asthma-COPD overlap syndrome chronic Smoking greater than 40 pack years acute Asthma-COPD overlap syndrome chronic JOHNATHAN (obstructive sleep apnea) chronic [facility] Work Phone: Evaluation noteNo assessment information available [facility] Work Phone: Evaluation note* Diagnosis Routine general medical examination at health care facility- Primary Routine general medical examination at a health care facility Chronic obstructive pulmonary disease, unspecified COPD type (CMS/HCC) Hyperlipidemia, unspecified hyperlipidemia type Gastroesophageal reflux disease, unspecified whether esophagitis present Anxiety Anxiety state, unspecified Hyperglycemia Other abnormal glucose Hypothyroidism due to acquired atrophy of thyroid Obstructive sleep apnea syndrome Obstructive sleep apnea (adult) (pediatric) Edema of both lower legs documented in this encounter [facility] Work Phone: Evaluation note* Diagnosis Vestibular migraine- Primary Impacted cerumen of right ear Impacted cerumen Sebaceous cyst of ear Sensorineural hearing loss, bilateral Vertigo Dizziness and giddiness [facility] Chronic obstructive pulmonary disease, unspecified COPD type (CMS/HCC)- Primary Acquired hypothyroidism Unspecified hypothyroidism Hyperglycemia Other abnormal glucose Current moderate episode of major depressive disorder without prior episode (CMS/HCC) Obstructive sleep apnea syndrome Obstructive sleep apnea (adult) (pediatric) documented in this encounter [facility] Work Phone: Evaluation note* Diagnosis COPD with asthma (HCC)- Primary [facility] Diagnosis COPD with asthma (HCC)- Primary Current moderate episode of major depressive disorder without prior episode (HCC) Severe obesity (HCC) Morbid obesity Hyperlipidemia, unspecified hyperlipidemia type COPD with acute exacerbation (HCC) [facility] Diagnosis Acute bronchitis, unspecified organism- Primary COPD with asthma (HCC) Simple chronic bronchitis (HCC) Simple chronic bronchitis Seasonal allergies Allergic rhinitis, cause unspecified Nicotine dependence, cigarettes, in remission Vaping nicotine dependence, non-tobacco product Shortness of breath Wheezing JOHNATHAN on CPAP [facility] Diagnosis PE (pulmonary thromboembolism) ([facility])- Primary Chronic pulmonary embolism Deep vein thrombosis of peroneal vein, right (HCC) Vaping nicotine dependence, non-tobacco product COPD with asthma [facility]HCC) [facility] Community acquired pneumonia of right upper lobe of lung- Primary COPD with asthma (HCC) [facility] Diagnosis Congestive heart failure, unspecified HF chronicity, unspecified heart failure type (HCC)- Primary COPD with asthma (HCC) Shortness of breath PE (pulmonary thromboembolism) (HCC) Chronic pulmonary embolism Pulmonary hypertension (HCC) Other chronic pulmonary heart diseases [facility] Chest pain- Primary Unspecified chest pain Chest pain, atypical [facility] Diagnosis At low risk for fall- Primary COPD with asthma (HCC) Cough, unspecified type COPD with acute exacerbation (HCC) [facility] Diagnosis PE (pulmonary thromboembolism) (HCC)- Primary Chronic pulmonary embolism Deep venous thrombosis (DVT) of right peroneal vein, unspecified chronicity (HCC) Nicotine dependence, cigarettes, in remission COPD with asthma (HCC) Pulmonary nodules Other diseases of lung, not elsewhere classified [facility] Diagnosis Seasonal allergic rhinitis due to pollen- Primary PE (pulmonary thromboembolism) (HCC) Chronic pulmonary embolism Mild major depression Major depressive disorder, single episode, mild Current moderate episode of major depressive disorder without prior episode (HCC) Severe persistent asthma without complication Hypothyroidism, unspecified type Mild persistent asthma without complication Hyperlipidemia, unspecified hyperlipidemia type Morbid obesity with body mass index (BMI) of 40.0 or higher (HCC) Hypercholesterolemia Pure hypercholesterolemia [facility] Diagnosis Seasonal allergic rhinitis due to pollen- Primary PE (pulmonary thromboembolism) (HCC) Chronic pulmonary embolism Mild major depression Major depressive disorder, single episode, mild Current moderate episode of major depressive disorder without prior episode (HCC) Severe persistent asthma without complication Hypothyroidism, unspecified type Mild persistent asthma without complication Hyperlipidemia, unspecified hyperlipidemia type Morbid obesity with body mass index (BMI) of 40.0 or higher (HCC) Hypercholesterolemia Pure hypercholesterolemia JOHNATHAN on CPAP [facility] Diagnosis Seasonal allergic rhinitis due to pollen- Primary PE (pulmonary thromboembolism) (HCC) Chronic pulmonary embolism Mild major depression Major depressive disorder, single episode, mild Current moderate episode of major depressive disorder without prior episode (HCC) Severe persistent asthma without complication Hypothyroidism, unspecified type Mild persistent asthma without complication Hyperlipidemia, unspecified hyperlipidemia type Morbid obesity with body mass index (BMI) of 40.0 or higher (HCC) Hypercholesterolemia Pure hypercholesterolemia JOHNATHAN on CPAP Acute non-recurrent maxillary sinusitis- Primary COPD with acute exacerbation (HCC) [facility] Diagnosis Seasonal allergic rhinitis due to pollen- Primary PE (pulmonary thromboembolism) (HCC) Chronic pulmonary embolism Mild major depression Major depressive disorder, single episode, mild Current moderate episode of major depressive disorder without prior episode (HCC) Severe persistent asthma without complication Hypothyroidism, unspecified type Mild persistent asthma without complication Hyperlipidemia, unspecified hyperlipidemia type Morbid obesity with body mass index (BMI) of 40.0 or higher (HCC) Hypercholesterolemia Pure hypercholesterolemia JOHNATHAN on CPAP PE (pulmonary thromboembolism) (HCC)- Primary Chronic pulmonary embolism Acute deep vein thrombosis (DVT) of right peroneal vein (HCC) Nicotine dependence, cigarettes, in remission COPD with asthma (HCC) [facility] Diagnosis Seasonal allergic rhinitis due to pollen- Primary PE (pulmonary thromboembolism) (HCC) Chronic pulmonary embolism Mild major depression Major depressive disorder, single episode, mild Current moderate episode of major depressive disorder without prior episode (HCC) Severe persistent asthma without complication Hypothyroidism, unspecified type Mild persistent asthma without complication Hyperlipidemia, unspecified hyperlipidemia type Morbid obesity with body mass index (BMI) of 40.0 or higher (HCC) Hypercholesterolemia Pure hypercholesterolemia JOHNATHAN on CPAP Upper respiratory tract infection, unspecified type- Primary COPD with acute exacerbation (HCC) [facility] Diagnosis Seasonal allergic rhinitis due to pollen- Primary PE (pulmonary thromboembolism) (HCC) Chronic pulmonary embolism Mild major depression Major depressive disorder, single episode, mild Current moderate episode of major depressive disorder without prior episode (HCC) Severe persistent asthma without complication Hypothyroidism, unspecified type Mild persistent asthma without complication Hyperlipidemia, unspecified hyperlipidemia type Morbid obesity with body mass index (BMI) of 40.0 or higher (HCC) Hypercholesterolemia Pure hypercholesterolemia JOHNATHAN on CPAP Upper respiratory tract infection, unspecified type- Primary COPD with acute exacerbation (HCC) Anxiety- Primary Anxiety state, unspecified Gastroesophageal reflux disease, unspecified whether esophagitis present Moderate major depression (HCC) Major depressive disorder, single episode, moderate Severe persistent asthma without complication Mild major depression Major depressive disorder, single episode, mild Current moderate episode of major depressive disorder without prior episode (HCC) Chronic diastolic congestive heart failure (HCC) [facility] Diagnosis Seasonal allergic rhinitis due to pollen- Primary PE (pulmonary thromboembolism) (HCC) Chronic pulmonary embolism Mild major depression Major depressive disorder, single episode, mild Current moderate episode of major depressive disorder without prior episode (HCC) Severe persistent asthma without complication Hypothyroidism, unspecified type Mild persistent asthma without complication Hyperlipidemia, unspecified hyperlipidemia type Morbid obesity with body mass index (BMI) of 40.0 or higher (HCC) Hypercholesterolemia Pure hypercholesterolemia JOHNATHAN on CPAP Upper respiratory tract infection, unspecified type- Primary COPD with acute exacerbation (HCC) COPD with acute exacerbation (HCC)- [facility] Diagnosis Onset Date Resolution Status Admit Date Seasonal allergies acute May 032024 11:10am [employer] Work Phone: History of Present illness Narrative* The patient is being seen for the subsequent annual wellness visit. * Past Medical, Surgical and Family History: reviewed and updated in chart. * Medications and Supplements: Medications and supplements, including calcium and vitamins reviewed and updated in chart. * No, the patient is not using opioids. * Patient Self Assessment of Health Status: good. * Tobacco use: User * Alcohol use: User, As noted in social history * Illicit drug use: Non-User * Current diet: unhealthy diet, does consume adequate fluids and does consume caffeine. * Exercise Frequency: infrequently. * Depression/Suicide Screening: . * During the past 2 weeks, the patient has not felt down, depressed or hopeless. * During the past 2 weeks, the patient has not felt little interest or pleasure in doing things. * Hearing Impairment: Patient has slight hearing impairment. * Cognitive Impairment: No cognitive impairment observed. * Bathing: performs independently. * Dressing: performs independently. * Walking: performs independently. * Managing Finances: performs independently. * Shopping: performs independently. * Managing Medications: performs independently. * Housework / Basic Home Maintenance: performs independently. * Falls Risk Screening:. LOLA has not fallen in the last 6 months. * Home safety risk factors: none. * Hypothyroidism - No fatigue/cold intolerance/hair changes/skin changes/weight gain. * Hyperlipidemia - Takes and tolerates medications without fatigue and myalgias. * COPD - Takes and tolerates medications. * Insomnia - Takes and tolerates medications. * obesity - work on eating less and eating less carbs. * hold labs, OV only 6 months. [facility] Work Phone: History of Present illness Narrative* The patient is being seen for the subsequent annual wellness visit. * Past Medical, Surgical and Family History: reviewed and updated in chart. * Medications and Supplements: Review of all medications by a prescribing practitioner or clinical pharmacist (such as prescriptions, OTCs, herbal therapies and supplements) documented in the medical record. * No, the patient is not using opioids. * Patient Self Assessment of Health Status: good. * Tobacco use: User * Alcohol use: User, As noted in social history * Illicit drug use: Non-User * Current diet: unhealthy diet, does consume adequate fluids and does consume caffeine. * Exercise Frequency: infrequently. * Depression/Suicide Screening: Patient has a current diagnosis of depression . * During the past 2 weeks, the patient felt down, depressed or hopeless. * During the past 2 weeks, the patient felt little interest or pleasure in doing things. * PHQ-9 Depression Scale: * 1. Little interest or pleasure in doing things - more than half the days * 2. Feeling down, depressed or hopeless - more than half the days * 3. Trouble falling asleep or sleeping too much - more than half the days * 4. Feeling tired or having little energy - more than half the days * 5. Poor appetite or overeating - not at all * 6. Feeling bad about self or failure or letting others down - more than half the days * 7. Trouble concentrating on things - more than half the days * 8. Moving / speaking slowly or fidgety / restless - not at all * 9. Thought would be better off or hurting self - not at all * Severity of depression is moderate. * How difficult have these problems made it for you to do your work, take care of things at home, or get along with people? Somewhat difficult. * Hearing Impairment: Patient has slight hearing impairment. * Cognitive Impairment: No cognitive impairment observed. * Bathing: performs independently. * Dressing: performs independently. * Walking: performs independently. * Managing Finances: performs independently. * Shopping: performs independently. * Managing Medications: performs independently. * Housework / Basic Home Maintenance: performs independently. * Falls Risk Screening:. LOLA has not fallen in the last 6 months. * Home safety risk factors: none. * Advance directives:. Advance Care Planning discussed and documented in the medical record, patient did not wish or was not able to name a surrogate decision maker or provide an advance care plan. Patient has living will. Patient has healthcare POA. * Hyperglycemia A1c is still okay and not on medications. * Hyperlipidemia - Takes and tolerates medications without fatigue and myalgias. * Hypothyroidism - No fatigue/cold intolerance/hair changes/skin changes/weight gain. * Depression stable, little bit better than it was 6 months ago before starting was to have surgery. * COPD - Takes and tolerates medications. * Obesity weight is stable talked about eating less and eating less carbohydrates overall both for the weight and elevated glucose. * Mammogram today * Colonoscopy 2019, 5 years. [facility] Work Phone: History of Present illness Narrative* MMg ok 2021 * colon due 2023 * flu shot done * covid booster done. * COPD - Takes and tolerates medications. * Mood -stable on medications * Hyperglycemia A1c is down to 5.4 sugars down to 106 fasting. She is doing better with her bread intake. * Hyperlipidemia - Takes and tolerates medications without fatigue and myalgias. * Hypertension - Takes medication without side effects. No CP/SOB/Palpitations. Follows a no added salt diet. Counseled diet, activity and weight loss. * Labs and office visit 6 months * Sleep apnea with CPAP - Uses CPAP 7/7 nights, feels rested in the morning, no daytime fatigue and patient feels the CPAP is effective. [facility] Work Phone: Instructions* Attachments The following attachments cannot be sent through Care Everywhere. * Pneumonia (Amharic) documented in [facility] for referral (narrative)* Consultation (Routine) - Authorized Specialty Diagnoses / Procedures Referred By Po sue Referred To Contact Primary Care Procedures Follow Up In Primary Care - Established Steven Alfaro MD [address] [place] [address] Referral ID Status Reason Start Date Expiration Date V isits Requested Visits Authorized [id number] Authorized 05/15/2023 11/11/2023 1 1 [facility] Work Phone: Rebzcc for referral (narrative)* Consultation (Routine) - Authorized Specialty Diagnoses / Procedures Referred By Po sue Referred To Contact Primary Care Procedures Follow Up In Primary Care - Established Steven Alfaro MD [address] [place] [address] Referral ID Status Reason Start Date Expiration Date V isits Requested Visits Authorized [id number] Authorized 11/17/2023 11/16/2024 1 1 [facility] Work Phone: Rebsgr for referral (narrative)No reason for referral [facility]: Summary Purpose Family History Mother Name Dates Details Family history of malignant neoplasm(V16.9, Z80.9) Status:Active Father Name Dates Details Family history of acute myoc ardial infarction(V17.3, Z82.49) Status:Active Family history of asthma(V17 .5, Z82.5) Status:Active Family history of coronary a rtery disease(V17.3, Z82.49) Status:Active Family history of congestive heart failure(V17.49, Z82.49) Status:Active Sister Name Dates Details Family history of asthma(V17 .5, Z82.5) Status:Active Family history of hypertensi on(V17.49, Z82.49) Status:Active Mother Name Dates Details Family history of malignant neoplasm(V16.9, Z80.9) Status:Active Father Name Dates Details Family history of asthma(V17 .5, Z82.5) Status:Active Family history of coronary a rtery disease(V17.3, Z82.49) Status:Active Family history of acute myoc ardial infarction(V17.3, Z82.49) Status:Active Family history of congestive heart failure(V17.49, Z82.49) Status:Active Sister Name Dates Details Family history of asthma(V17 .5, Z82.5) Status:Active Family history of hypertensi on(V17.49, Z82.49) Status:Active Unknown Family Member Name Dates Details Family history of asthma: Fa ther, Sister(V17.5, Z82.5) Status:Active Family history of coronary a rtery disease: Father(V17.3, Z82.49) Status:Active Family history of malignant neoplasm: Mother(V16.9, Z80.9) Status:Active Family history of hypertensi on: Sister(V17.49, Z82.49) Status:Active Family history of acute myoc ardial infarction: Father(V17.3, Z82.49) Status:Active Family history of congestive heart failure: Father(V17.49, Z82.49) Status:Active Unknown Family Member Name Dates Details Family history of asthma: Fa ther, Sister(V17.5, Z82.5) Status:Active Family history of coronary a rtery disease: Father(V17.3, Z82.49) Status:Active Family history of malignant neoplasm: Mother(V16.9, Z80.9) Status:Active Family history of hypertensi on: Sister(V17.49, Z82.49) Status:Active Family history of acute myoc ardial infarction: Father(V17.3, Z82.49) Status:Active Family history of congestive heart failure: Father(V17.49, Z82.49) Status:Active Unknown Family Member Name Dates Details Family history of asthma: Fa ther, Sister(V17.5, Z82.5) Status:Active Family history of coronary a rtery disease: Father(V17.3, Z82.49) Status:Active Family history of malignant neoplasm: Mother(V16.9, Z80.9) Status:Active Family history of hypertensi on: Sister(V17.49, Z82.49) Status:Active Family history of acute myoc ardial infarction: Father(V17.3, Z82.49) Status:Active Family history of congestive heart failure: Father(V17.49, Z82.49) Status:Active Relationship Condition Age at Onset Recorded Date/T carmen mother Malignant neoplasm Unknown father Asthma Unknown Cardiac disease Unknown Myocardial infarction Unknown sister Asthma Unknown Hypertension Unknown Seasonal allergic rhinitis Unknown Unknown Family Member Name Dates Details Family history of asthma: Fa ther, Sister(V17.5, Z82.5) Status:Active Family history of coronary a rtery disease: Father(V17.3, Z82.49) Status:Active Family history of malignant neoplasm: Mother(V16.9, Z80.9) Status:Active Family history of hypertensi on: Sister(V17.49, Z82.49) Status:Active Family history of acute myoc ardial infarction: Father(V17.3, Z82.49) Status:Active Family history of congestive heart failure: Father(V17.49, Z82.49) Status:Active Unknown Family Member Name Dates Details Family history of asthma: Fa ther, Sister(V17.5, Z82.5) Status:Active Family history of coronary a rtery disease: Father(V17.3, Z82.49) Status:Active Family history of malignant neoplasm: Mother(V16.9, Z80.9) Status:Active Family history of hypertensi on: Sister(V17.49, Z82.49) Status:Active Family history of acute myoc ardial infarction: Father(V17.3, Z82.49) Status:Active Family history of congestive heart failure: Father(V17.49, Z82.49) Status:Active Unknown Family Member Name Dates Details Family history of asthma: Fa ther, Sister(V17.5, Z82.5) Status:Active Family history of coronary a rtery disease: Father(V17.3, Z82.49) Status:Active Family history of malignant neoplasm: Mother(V16.9, Z80.9) Status:Active Family history of hypertensi on: Sister(V17.49, Z82.49) Status:Active Family history of acute myoc ardial infarction: Father(V17.3, Z82.49) Status:Active Family history of congestive heart failure: Father(V17.49, Z82.49) Status:Active Unknown Family Member Name Dates Details Family history of congestive heart failure: Father(V17.49, Z82.49) Status:Active Family history of acute myoc ardial infarction: Father(V17.3, Z82.49) Status:Active Family history of hypertensi on: Sister(V17.49, Z82.49) Status:Active Family history of malignant neoplasm: Mother(V16.9, Z80.9) Status:Active Family history of coronary a rtery disease: Father(V17.3, Z82.49) Status:Active Family history of asthma: Fa ther, Sister(V17.5, Z82.5) Status:Active Unknown Family Member Name Dates Details Family history of asthma: Fa ther, Sister(V17.5, Z82.5) Status:Active Family history of coronary a rtery disease: Father(V17.3, Z82.49) Status:Active Family history of malignant neoplasm: Mother(V16.9, Z80.9) Status:Active Family history of hypertensi on: Sister(V17.49, Z82.49) Status:Active Family history of acute myoc ardial infarction: Father(V17.3, Z82.49) Status:Active Family history of congestive heart failure: Father(V17.49, Z82.49) Status:Active Unknown Family Member Name Dates Details Family history of congestive heart failure: Father(V17.49, Z82.49) Status:Active Family history of acute myoc ardial infarction: Father(V17.3, Z82.49) Status:Active Family history of hypertensi on: Sister(V17.49, Z82.49) Status:Active Family history of malignant neoplasm: Mother(V16.9, Z80.9) Status:Active Family history of coronary a rtery disease: Father(V17.3, Z82.49) Status:Active Family history of asthma: Fa ther, Sister(V17.5, Z82.5) Status:Active Unknown Family Member Name Dates Details Family history of congestive heart failure: Father(V17.49, Z82.49) Status:Active Family history of acute myoc ardial infarction: Father(V17.3, Z82.49) Status:Active Family history of hypertensi on: Sister(V17.49, Z82.49) Status:Active Family history of malignant neoplasm: Mother(V16.9, Z80.9) Status:Active Family history of coronary a rtery disease: Father(V17.3, Z82.49) Status:Active Family history of asthma: Fa ther, Sister(V17.5, Z82.5) Status:Active Unknown Family Member Name Dates Details Family history of asthma: Fa ther, Sister(V17.5, Z82.5) Status:Active Family history of coronary a rtery disease: Father(V17.3, Z82.49) Status:Active Family history of malignant neoplasm: Mother(V16.9, Z80.9) Status:Active Family history of hypertensi on: Sister(V17.49, Z82.49) Status:Active Family history of acute myoc ardial infarction: Father(V17.3, Z82.49) Status:Active Family history of congestive heart failure: Father(V17.49, Z82.49) Status:Active Unknown Family Member Name Dates Details Family history of asthma: Fa ther, Sister(V17.5, Z82.5) Status:Active Family history of coronary a rtery disease: Father(V17.3, Z82.49) Status:Active Family history of malignant neoplasm: Mother(V16.9, Z80.9) Status:Active Family history of hypertensi on: Sister(V17.49, Z82.49) Status:Active Family history of acute myoc ardial infarction: Father(V17.3, Z82.49) Status:Active Family history of congestive heart failure: Father(V17.49, Z82.49) Status:Active Unknown Family Member Name Dates Details Family history of asthma: Fa ther, Sister(V17.5, Z82.5) Status:Active Family history of coronary a rtery disease: Father(V17.3, Z82.49) Status:Active Family history of malignant neoplasm: Mother(V16.9, Z80.9) Status:Active Family history of hypertensi on: Sister(V17.49, Z82.49) Status:Active Family history of acute myoc ardial infarction: Father(V17.3, Z82.49) Status:Active Family history of congestive heart failure: Father(V17.49, Z82.49) Status:Active Advance Directives Date Activated Date Inactivated Comments 07/25/2024 12:39 AM 07/27/2024 12:35 PM Date Activated Date Inactivated Comments 07/25/2024 12:39 AM 07/27/2024 12:35 PM Date Activated Date Inactivated Comments 10/19/2024 12:00 PM 10/20/2024 6:35 PM Date Activated Date Inactivated Comments 07/25/2024 12:39 AM 07/27/2024 12:35 PM Date Activated Date Inactivated Comments 10/19/2024 12:00 PM 10/20/2024 6:35 PM Date Activated Date Inactivated Comments 07/25/2024 12:39 AM 07/27/2024 12:35 PM Chief Complaint 6MO SEVERE OBESITY, HL, HTH, PERSISTENT INSOMNIA CHK, REV LABS(IN CHART)MCW..6 MO FU. REV [id number] Chief Complaint and Reason for Visit Chief Complaint cold symptoms E-ORDER 6 M FU Reason for Visit Asthma-COPD overlap syndrome Smoking greater than 40 pack years Asthma-COPD overlap syndrome JOHNATHAN (obstructive sleep apnea) Chief Complaint SMOKER > 40 PK YRS Chief Complaint Admit Date Acute Sick May 13, 2025 11:1 0am Reason for Visit Admit Date Seasonal allergies May 13, 2025 11:1 0am Reason for Referral Specialty Diagnoses / Procedures Referred By Contac t Referred To Contact Audiology Diagnoses Vertigo Chris Grider MD [address] [place] [address] [employer] [address] [place] [address] Referral ID Status Reason Start Date Expiration Date V isits Requested Visits Authorized [id number] Authorized 2023 06/15/2024 1 1 Specialty Diagnoses / Procedures Referred By Contac t Referred To Contact Pulmonology Diagnoses COPD with asthma (HCC) Procedures Complete PFT with Pre and Post Bronchodilator Sara Alvarez MD [address] [address] Referral ID Status Reason Start Date Expiration Date V isits Requested Visits Authorized [id number] Authorized 04/15/2024 04/15/2025 1 1 Specialty Diagnoses / Procedures Referred By Contac t Referred To Contact Pulmonology Diagnoses COPD with asthma (HCC) COPD with acute exacerbation (HCC) Sara Alvarez MD [address] [address] Laya Agee MD [address] [place] [address] [place] [phone] Referral ID Status Reason Start Date Expiration Date V isits Requested Visits Authorized [id number] Authorized 04/12/2024 04/12/2025 1 1 Specialty Diagnoses / Procedures Referred By Contac t Referred To Contact Behavorist (Outpatient Social Work) Diagnoses Current moderate episode of major depressive disorder without prior episode (HCC) Sara Alvarez MD [address] [place] [phone] Referral ID Status Reason Start Date Expiration Date V isits Requested Visits Authorized [id number] Authorized 04/12/2024 04/12/2025 1 1 Specialty Diagnoses / Procedures Referred By Contac t Referred To Contact Radiology Diagnoses Nicotine dependence, cigarettes, in remission Procedures CT Lung Cancer Screening Patricia Lozano MD [address] [place] [phone] Referral ID Status Reason Start Date Expiration Date V isits Requested Visits Authorized [id number] New Request 07/13/2024 07/13/2025 1 1 Specialty Diagnoses / Procedures Referred By Contac t Referred To Contact Sleep Medicine Diagnoses JOHNATHAN on CPAP Patricia [facility]ano [facility] [address] [facility] [place] [phone] Referral ID Status Reason Start Date Expiration Date V isits Requested Visits Authorized [id number] Authorized 07/13/2024 07/13/2025 1 1 Specialty Diagnoses / Procedures Referred By Contac t Referred To Contact Diagnoses COPD with asthma (HCC) Patricia Lozano MD [address] [place] [phone] Referral ID Status Reason Start Date Expiration Date Visits Re quested Visits Authorized [id number] Closed 1 1 Additional Source Comments INFORMATION SOURCE (unrecogn ized section and content) DATE CREATED AUTHOR 07/26/2019 [facility] DATE CREATED AUTHOR AUTHOR'S ORGANIZ ATION 04/18/2022 [facility] DATE CREATED AUTHOR AUTHOR'S ORGANIZ ATION 11/13/2022 [employer] DATE CREATED AUTHOR AUTHOR'S ORGANIZ ATION 05/08/2023 [facility] DATE CREATED AUTHOR AUTHOR'S ORGANIZ ATION 11/18/2023 [facility] DATE CREATED AUTHOR AUTHOR'S ORGANIZ ATION 09/01/2024 [facility] DATE CREATED AUTHOR AUTHOR'S ORGANIZ ATION 11/19/2024 [facility] DATE CREATED AUTHOR AUTHOR'S ORGANIZ ATION 01/14/2025 [facility] DATE CREATED AUTHOR AUTHOR'S ORGANIZ ATION 03/12/2025 [facility] DATE CREATED AUTHOR AUTHOR'S ORGANIZ ATION 04/22/2025 [facility] Goals (unrecognized section and content) Goals may be documented in a n alternate sectionGoals may be documented in an alternate sectionGoals may be documented in an alternate section <item> Privacy Markings (unrecogniz ed section and content) Section Author: Chioma Torres PROHIBITION ON REDISCLOSURE OF CONFIDENTIAL INFORMATION This notice accompanies a disclosure of information concerning a client made to you with the consent of such client. Reason for Visit (unrecogniz ed section and content) Reason Comments Medication Refill Reason Comments Medicare Annual Wellness Visit Subsequen t Reason Comments Dizziness Reason Comments Follow-up Specialty Diagnoses / Procedures Referred By Po sue Referred To Contact Primary Care Procedures Follow Up In Primary Care - Established Steven Alfaro MD [address] [place] [address] Referral ID Status Reason Start Date Expiration Date Visits Re quested Visits Authorized [id number] Closed 05/15/2023 11/11/2023 1 1 Reason Onset Date Comments Care Coordination [facility] 04/13/2024 Reason Onset Date Comments Care Coordination - [facility] 04/19/2024 Reason Comments Establish Care SOB, and congestion symptoms x's 3 weeks Reason Onset Date Comments Medication Refill 04/27/2024 Reason Comments Consult Patient here for a c hadleyult. She was referred by her PCP. She has a pulmonary doctor in [place]. She reports her insurance would not accept her. She has not seen pulmonary in 2 years. She is not well today and has not been feeling well for about two weeks. She states it is just sitting in her chest. She is needing refills for her nebulizer. Specialty Diagnoses / Procedures Referred By Po sue Referred To Contact Pulmonology Diagnoses COPD with asthma (HCC) COPD with acute exacerbation (HCC) Sara Alvarez MD [address] [address] Laya Agee MD 770 [facility] [address] [address] Referral ID Status Reason Start Date Expiration Date Visits Re quested Visits Authorized [id number] Closed 04/12/2024 04/12/2025 1 1 Reason Comments Anticoagulation Reason Comments Cough Congestion SOB x 1 m onth Reason Onset Date Comments Medication Refill 09/16/2024 Reason Comments Follow-up Post hospital f/u -- c/o dizziness (thinks it is her eyes) Reason Comments Chest Pain Specialty Diagnoses / Procedures Referred By Po sue Referred To Contact Diagnoses Chest pain Referral ID Status Reason Start Date Expiration Date Visits Re quested Visits Authorized [id number] 1 1 Reason Onset Date Comments Transition Of Care 10/21/2024 Reason Onset Date Comments URI Symptoms x's 1 w venetie Fall Risk Screening 10/28/2024 Reason Comments PULMONARY EMBOLISM DVT 3MTH Reason Comments Follow-up 3 month f/u-sinus is sues Reason Comments Cough Congestion headache x couple days Reason Comments Cough Patient presents tod ay with headache, congestion, shortness of breath and cough x 2 days. Reason Comments Anxiety N Reason Comments Cough X 1 dayCOPD and asth ma Care Teams (unrecognized sec tion and content) Pipe Threader Relationship Specialty Start Date End Date Denny Dumas MD [address] [phone] PCP - General 08/08/11 09/11/15 Steven Alfaro MD [address] [place] [address] PCP - General Family Medicine 09/12/15 Pipe Threader Relationship Specialty Start Date End Date Steven Alfaro MD [address] [place] [address] PCP - General 07/06/19 Steven Alfaro MD [address] [place] [address] PCP - [employer] PCP 11/03/22 Pipe Threader Relationship Specialty Start Date End Date Steven Alfaro MD [address] [place] [address] PCP - General Family Medicine 09/12/15 Pipe Threader Relationship Specialty Start Date End Date Steven Alfaro MD [address] [place] [address] PCP - General 07/06/19 Steven Alfaro MD [address] [place] [address] PCP - [employer] PCP 11/03/22 Pipe Threader Relationship Specialty Start Date End Date Sara Alvarez MD [address] [address] PCP - General Family Medicine 04/12/24 Pipe Threader Relationship Specialty Start Date End Date Sara Alvarez MD [address] [place] [phone] PCP - General Family Medicine 04/12/24 Lilo Perez, MACHINIST HELPER [employer] [facility] Solidworks DesignerBeef Farmer 04/15/24 Pipe Threader Relationship Specialty Start Date End Date Sara Alvarez MD [address] [place] [phone] PCP - General Family Medicine 04/12/24 Lilo Perez, MACHINIST HELPER [employer] [facility] Solidworks DesignerBeef Farmer 04/15/24 Pipe Threader Relationship Specialty Start Date End Date Sara Alvarez MD [facility] [place] [phone] PCP - General Family Medicine 04/12/24 Pipe Threader Relationship Specialty Start Date End Date Sara Alvarez MD [facility] [place] [phone] PCP - General Family Medicine 04/12/24 Pipe Threader Relationship Specialty Start Date End Date Sara Alvarez MD [facility] [place] [phone] PCP - General Family Medicine 04/12/24 Pipe Threader Relationship Specialty Start Date End Date Sara Alvarez MD [facility] [place] [phone] PCP - General Family Medicine 04/12/24 Pipe Threader Relationship Specialty Start Date End Date Sara Alvarez MD [address] [address] PCP - General Family Medicine 04/12/24 Pipe Threader Relationship Specialty Start Date End Date Sara Alvarez MD [address] [address] PCP - General Family Medicine 04/12/24 Pipe Threader Relationship Specialty Start Date End Date Sara Alvarez MD [address] [place] [phone] PCP - General Family Medicine 04/12/24 Pipe Threader Relationship Specialty Start Date End Date Sara Alvarez MD [facility] [place] [phone] PCP - General Family Medicine 04/12/24 Pipe Threader Relationship Specialty Start Date End Date Sara Alvarez MD [facility] [place] [phone] PCP - General Family Medicine 04/12/24 Pipe Threader Relationship Specialty Start Date End Date Sara Alvarez MD [facility] [address] [address] PCP - General Family Medicine 04/12/24 Pipe Threader Relationship Specialty Start Date End Date Sara Alvarez MD [facility] [address] [address] PCP - General Family Medicine 04/12/24 Pipe Threader Relationship Specialty Start Date End Date Sara Alvarez MD [address] [address] PCP - General Family Medicine 04/12/24 Pipe Threader Relationship Specialty Start Date End Date Sara Alvarez MD [address] [address] PCP - General Family Medicine 04/12/24 Pipe Threader Relationship Specialty Start Date End Date Sara Alvarez MD [address] [place] [phone] PCP - General Family Medicine 04/12/24 Pipe Threader Relationship Specialty Start Date End Date Sara Alvarez MD [address] [place] [phone] PCP - General Family Medicine 04/12/24 Pipe Threader Relationship Specialty Start Date End Date Sara Alvarez MD [address] [address] PCP - General Family Medicine 04/12/24 Pipe Threader Relationship Specialty Start Date End Date Sara Alvarez MD [address] [address] PCP - General Family Medicine 04/12/24 Pipe Threader Relationship Specialty Start Date End Date Sara Alvarez MD [address] [address] PCP - General Family Medicine 04/12/24 Pipe Threader Relationship Specialty Start Date End Date Sara Alvarez MD [address]20 [place] [address] PCP - General Family Medicine 04/12/24 Team Status: Active Member Role/Relationship Status Dates Dr. Steven Alfaro MD Family Provider Active SARA ALVAREZ MD Primary Care Provider Active Team Status: Inactive Member Role/Relationship Status Dates Dr. Steven Alfaro MD Referring Provider Active Start: May 13, 2025 End: May 13, 2025 Padma Pérez INDUSTRIAL TECHNOLOGY TEACHER, INDUSTRIAL TECHNOLOGY TEACHER-C Attending Provider Active Start: May 13, 2025 End: May 13, 2025 SARA ALVAREZ MD Primary Care Provider Active Start: May 13, 2025 End: May 13, 2025 Scheduled Active and Recently Administ ered Medications (unrecognized section and content) Medication Order 10/18/2024 10/19/2024 10/20/2024 apixaban (ELIQUIS) tablet 5 mg 5 mg, Oral, 2 times daily, First dose on Fri10/19/24 at 2000, Indication: DVT/PE, How long has patient been on apixaban? 7 Days - 6 Months 1950 (Given - Provider: Lori Bryant RN) 0840 (Given - Provider: Tiarra Gomez, SOFIYA) aspirin EC tablet 81 mg 81 mg, Oral, Daily, First dose on Fri10/19/24 at 1600, DO NOT CRUSH OR CHEW. 1620 (Given - Provider: Ирина Reynolds RN) 0840 (Given - Provider: Tiarra Gomez, SOFIYA) buPROPion (WELLBUTRIN XL) 24 hr tablet 300 mg 300 mg, Oral, Daily, First dose on Fri10/19/24 at 1600, Tablets to be swallowed whole. DO NOT CRUSH OR CHEW. 1620 (Given - Provider: Ирина Reynolds, SOFIYA) 0840 (Given - Provider: Tiarra Gomez, SOFIYA) DULoxetine (CYMBALTA) DR capsule 30 mg 30 mg, Oral, Daily, First dose on Fri10/19/24 at 1600, Take in addition to 60mg capsule for a daily dose of 90mg DO NOT CRUSH OR CHEW. 1620 (Given - Provider: Ирина Reynolds RN) 0839 (Given - Provider: Tiarra Gomez, RN) DULoxetine (CYMBALTA) DR capsule 60 mg 60 mg, Oral, Daily, First dose on Fri10/19/24 at 1600, Take in addition to 30mg capsule for a daily dose of 90mg DO NOT CRUSH OR CHEW. 1620 (Given - Provider: Ирина Reynolds RN) 0840 (Given - Provider: Tiarra Gomez RN) furosemide (LASIX) tablet 40 mg 40 mg, Oral, 2 times daily, First dose on Fri10/19/24 at 1800 1746 (Given - Provider: Marlene Bergeron RN) 0548 (Given - Provider: Lori Bryant RN) levothyroxine (SYNTHROID, LEVOTHROID) tablet 75 mcg 75 mcg, Oral, Daily, First dose on Fri10/19/24 at 1530, Avoid administration with soybean flour, cottonseed meal, walnuts, and dietary fiber. Administer at least 1 hour before breakfast. Hold continuous tube feeds for at least 1 hour before until 1 hour after each dose. Flush tube with 30mL of water before and after administration. Tube feed rate may need adjusted to meet caloric needs. 1620 (Given - Provider: Ирина Reynolds RN) 0548 (Given - Provider: Lori Bryant RN) mometasone-formoterol (DULERA) 200-5 mcg/actuation inhaler 2 puff(Linked Group 1) 2 puff, Inhalation, 2 times daily (RT), First dose on Fri10/19/24 at 1600 1701 (Given - Provider: Marlene Bergeron RN) 0841 (Given - Provider: Tiarra Gomez, SOFIYA) montelukast (SINGULAIR) tablet 10 mg 10 mg, Oral, Daily, First dose on Fri10/20/24 at 0900 0840 (Given - Provid er: Tiarra Gomez RN) pantoprazole (PROTONIX) EC tablet 40 mg 40 mg, Oral, Daily, First dose on Fri10/19/24 at 1600, DO NOT CRUSH OR CHEW. 1620 (Given - Provider: Ирина Reynolds RN) 0840 (Given - Provider: Tiarra Gomez RN) potassium chloride SA (K-DUR,KLOR-CON M10) CR tablet 10 mEq 10 mEq, Oral, Daily, First dose on Fri10/19/24 at 1600, DO NOT CRUSH OR CHEW (if instructed may dissolve tablet(s) in liquid) DO NOT ADMINISTER DISSOLVED TABLET VIA SURGICALLY PLACED TUBE OR TUBE less than 14 Swazi. To administer dissolved tablet(s) mix with 4 ounces of water over 2-3 minutes, stir for 30 seconds prior to administration; rinse dosing cup and administer residual medication to ensure full dose given 1620 (Given - Provider: Ирина Reynolds RN) 0839 (Given - Provider: Tiarra Gomez, SOFIYA) simvastatin (ZOCOR) tablet 40 mg 40 mg, Oral, Daily, First dose on Fri10/19/24 at 1600 1620 (Given - Provider: Ирина Reynolds RN) 0840 (Given - Provider: Tiarra Gomez, SOFIYA) sodium chloride (PF) (NS) flush 5 mL(Linked Group 2) 5 mL, Intravenous, Every 8 hours scheduled, First dose on Fri10/19/24 at 1400, Saline lock 1400 (Given - Provider: Marlene Bergeron RN)2200 (Given - Provider: Lori Bryant, SOFIYA) 0600 (Canceled Entry - Provider: Lori Bryant RN)1400 (Not Given - Provider: Tiarra Gomez, SOFIYA - Reason: Transfer to a Procedural area) tiotropium bromide (SPIRIVA RESPIMAT) 2.5 mcg/actuation inhaler 2 puff(Linked Group 1) 2 puff, Inhalation, Daily (RT), First dose on Fri10/19/24 at 1600 1701 (Given - Provider: Marlene Bergeron RN) 0841 (Given - Provider: Tiarra Gomez, SOFIYA) PRN Medication Order 10/18/2024 10/19/2024 10/20/2024 acetaminophen (TYLENOL) tablet 650 mg 650 mg, Oral, Every 4 hours PRN, mild pain, fever 100.4 F or greater, headaches, Starting on Fri10/19/24 at 1156 albuterol inhaler 2 puff 2 puff, Inhalation, Every 6 hours PRN (RT), wheezing, Starting on Fri10/19/24 at 1340, SPACER REQUIRED FOR ADMINISTRATION atropine injection 1 mg 1 mg, Intravenous, As needed, If HR less than 40 or continued symptomatic bradycardia, Starting on Fri10/20/24 at 0828, For 3 doses, Intra-Procedure, Administer over 1 minute. May repeat as needed every 3 minutes (maximum dose of 3 mg). bisacodyL (DULCOLAX) suppository 10 mg 10 mg, Rectal, Daily PRN, constipation, Starting on Fri10/19/24 at 1156, Try oral medications first for constipation. Try rectal medication if oral meds are ineffective, not tolerated, or not ordered. iopamidoL (ISOVUE-370) 370 mg iodine /mL (76 %) injection 110 mL (COMPLETED) 110 mL, Intravenous, Once in imaging, contrast, Starting on Fri10/20/24 at 1130, For 1 dose 1140 (Contrast Admin istered - Provider: Edmundo Conway, TECHNOLOGIST - Comment: [id number]) ipratropium-albuteroL (DUO-NEB) 0.5-2.5 mg/3 ml nebulizer solution 3 mL 3 mL, Nebulization, Every 4 hours PRN (RT), shortness of breath, Starting on Fri10/19/24 at 1245 1253 (Given - Provider: Kristen Villar, JEWEL SAWYER) melatonin Tab 5 mg 5 mg, Oral, Nightly PRN, Sleep, Starting on Fri10/19/24 at 1156, If still awake in 1 hour proceed to trazodone (Desyrel) nitroGLYCERIN (NITROSTAT) SL tablet 0.4 mg 0.4 mg, Sublingual, Every 5 min PRN, chest pain, Starting on Fri10/19/24 at 1156, For chest pain. May give up to 3 doses. Call physician for chest pain unrelieved by Nitroglycerin, or recurrent chest pain. DO NOT CRUSH OR CHEW. nitroGLYCERIN (NITROSTAT) SL tablet (COMPLETED) Code/trauma/sedation medication, Starting on Fri10/20/24 at 1126, Intra-Procedure 1126 (Given - Provid er: Diamond Guerra RN - Comment: 2- SL 0.4 mg NTG tabs given for total of 0.[address] Santillan, denies use of phosphodiestaerase inhibitors, CCTA protocol) ondansetron (ZOFRAN-ODT) disintegrating tablet 4 mg 4 mg, Oral, Every 6 hours PRN, nausea, vomiting, Starting on Fri10/19/24 at 1156, Orally disintegrating tablet: Open blister pack and place tablet on the tongue; tablet is formulated to dissolve on the tongue without water; do not split tablet. Formulation requires tablet remain in sealed package until immediately prior to dose being administered. perflutren lipid microspheres (DEFINLunera Lighting) 0.143 mg/mL solution 0-10 mL of mixture 0-10 mL of mixture, Intravenous, Once in imaging, contrast, IF suboptimal echo, Starting on Fri10/19/24 at 1200, For 48 hours, Prepare syringe by withdrawing 1.3 mL of perflutren (DEFINITY) from the 2ml vial. Further dilute the 1.3 mL of perflutren with Sodium Chloride (NS) 0.9% to total volume of 10 ml. Chart total ML OF MIXTURE given to patient. 0814 (Given - Provid er: Yaneth Manzo RN) senna (SENOKOT) tablet 8.6 mg 8.6 mg (1 tablet), Oral, 2 times daily PRN, constipation, Starting on Fri10/19/24 at 1156 sodium chloride (PF) (NS) 0.9 % contrast line flush 10 mL (COMPLETED)(Linked Group 3) 10 mL, Intravenous, Once in imaging, contrast, Per slasher tender helper (Radiology) for line patency check prior to contrast administration, Starting on Fri10/20/24 at 1059, For 1 dose 1140 (Given - Provid er: Edmundo Conway TECHNTODD) sodium chloride (PF) (NS) 0.9 % contrast line flush 80 mL (COMPLETED)(Linked Group 3) 80 mL, Intravenous, Once in imaging, contrast, Per slasher tender helper (Radiology), Starting on Fri10/20/24 at 1059, For 1 dose, 30 mL BEFORE contrast administration 50 mL AFTER contrast administration 1140 (Given - Provid er: TECHNOLOGIST Peggy) sodium chloride (PF) (NS) flush 5 mL(Linked Group 4) 5 mL, Intravenous, As needed, line care, Starting on Fri10/19/24 at 1007 sodium chloride (PF) (NS) flush 5 mL(Linked Group 2) 5 mL, Intravenous, As needed, line care, Starting on Fri10/19/24 at 1156 sodium chloride 0.9% (NS)(Linked Group 4) 0-150 mL/hr, Intravenous, As needed, To flush line after IV infusions when no maintenance IV ordered or a compatibility issue. Infuse 20ml at the same rate as the secondary infusion, Starting on Fri10/19/24 at 1007, Run as Primary IV. NOT intended for KVO. sodium chloride 0.9% (NS)(Linked Group 2) 0-150 mL/hr, Intravenous, As needed, To flush line after IV infusions when no maintenance IV ordered or a compatibility issue. Infuse 20ml at the same rate as the secondary infusion, Starting on Fri10/19/24 at 1156, Run as Primary IV. NOT intended for KVO. traZODone (DESYREL) tablet 50 mg 50 mg, Oral, Nightly PRN, sleep, Starting on Fri10/19/24 at 1156, To be administered 1 hour after melatonin if still awake. May repeat x 1 dose in 30 minutes if still awake. Linked Groups Order Group 1: tiotropium bromide (SPIRIVA RESPIMAT) 2.5 mcg/actuation inhaler 2 puffJump to med 2 puff, Inhalation, Daily (RT), First dose on Fri10/19/24 at 1600 And mometasone-formoterol (DULERA) 200-5 mcg/actuation inhaler 2 puffJump to med 2 puff, Inhalation, 2 times daily (RT), First dose on Fri10/19/24 at 1600 Group 2: Saline lock IV (CANCELED) Routine, Continuous, Starting on Fri10/19/24 at 1157, Until Specified And sodium chloride (PF) (NS) flush 5 mLJump to med 5 mL, Intravenous, As needed, line care, Starting on Fri10/19/24 at 1156 And sodium chloride (PF) (NS) flush 5 mLJump to med 5 mL, Intravenous, Every 8 hours scheduled, First dose on Fri10/19/24 at 1400, Saline lock And sodium chloride 0.9% (NS)Jump to med 0-150 mL/hr, Intravenous, As needed, To flush line after IV infusions when no maintenance IV ordered or a compatibility issue. Infuse 20ml at the same rate as the secondary infusion, Starting on Fri10/19/24 at 1156, Run as Primary IV. NOT intended for KVO. Group 3: sodium chloride (PF) (NS) 0.9 % contrast line flush 10 mL (COMPLETED)Jump to med 10 mL, Intravenous, Once in imaging, contrast, Per slasher tender helper (Radiology) for line patency check prior to contrast administration, Starting on Fri10/20/24 at 1059, For 1 dose And sodium chloride (PF) (NS) 0.9 % contrast line flush 80 mL (COMPLETED)Jump to med 80 mL, Intravenous, Once in imaging, contrast, Per slasher tender helper (Radiology), Starting on Fri10/20/24 at 1059, For 1 dose, 30 mL BEFORE contrast administration 50 mL AFTER contrast administration Group 4: Insert peripheral IV (COMPLETED) DARNELL, Once, On Fri10/19/24 at 1008, For 1 occurrence And Saline lock IV (CANCELED) DARNELL, Once, On Fri10/19/24 at 1008, For 1 occurrence And sodium chloride (PF) (NS) flush 5 mLJump to med 5 mL, Intravenous, As needed, line care, Starting on Fri10/19/24 at 1007 And sodium chloride 0.9% (NS)Jump to med 0-150 mL/hr, Intravenous, As needed, To flush line after IV infusions when no maintenance IV ordered or a compatibility issue. Infuse 20ml at the same rate as the secondary infusion, Starting on Fri10/19/24 at 1007, Run as Primary IV. NOT intended for KVO. FOR RECORDS PERTAINING TO PATIENTS WHO ARE OR HAVE BEEN ENROLLED IN A CHEMICAL DEPENDENCY/SUBSTANCEABUSE PROGRAM, SOME INFORMATION MAY BE OMITTED. This clinical summary was aggregated from multiple sources. Caution should be exercised in using it in the provision of clinical care. This summary normalizes information from multiple sources, and as a consequence, information in this document may materially change the coding, format and clinical context of patient data. In addition, data may be omitted in some cases. CLINICAL DECISIONS SHOULD BE BASED ON THE PRIMARY CLINICAL RECORDS. [facility] [employer] [facility]. provides no warranty or guarantee of the accuracy or completeness of information in this document.
[2025-05-14 09:57] LABS: Hematocrit 37.9 % (37-47); Hemoglobin 12.8 g/dL (12.0-15.0); Immature Granulocytes Count 0.020 X10^3/uL (0.0-0.0); Mean Corp Hgb Conc 33.8 g/dL (32-36); Mean Corpuscular Volume 88.8 fL (81-99); Mean Platelet Vol. 11.0 fl (6.2-12.0); NRBC Flagged by Analyzer 0 % (0-5); Platelet Count 208 K/mm3 (150-450); RBC Distribution Width CV 13.5 % (11.6-14.6); RBC Distribution Width SD 43.8 fl (35.1-43.9); Red Blood Count 4.27 M/mm3 (4.2-5.4); White Blood Count 6.8 K/mm3 (4.4-11.0)
[2025-05-18 11:08] LABS: Bluegrass, Kentucky <0.10 kU/L (Class 0); Cat Hair/Dander, Standard <0.10 kU/L (Class 0); Dog Epithelia <0.10 kU/L (Class 0); Elm, American White <0.10 kU/L (Class 0); Oak, White <0.10 kU/L (Class 0); Plantain, English <0.10 kU/L (Class 0); Ragweed, Short/Common <0.10 kU/L (Class 0)
== END | disposition home or self-care (01) ==
PROVIDERS: PCP Family Medicine; Referring Provider Nurse Practitioner Acute Care; Visit Provider Nurse Practitioner Acute Care
DX: J44.1 Chronic obstructive pulmonary disease with (acute) exacerbation (principal); J30.2 Other seasonal allergic rhinitis
CPT/HCPCS: 36415; 82785; 85025; 86003; 87070; 87077; 87186; 87205

== ENCOUNTER → 2025-05-18 | Outpatient (CLI) | payer OTHER, SELFPAY | END | disposition home or self-care (01) | LOC: PSN 07:46 | PROVIDERS: PCP Family Medicine; Referring Provider Nurse Practitioner Acute Care; Visit Provider Nurse Practitioner Acute Care | DX: J44.9 Chronic obstructive pulmonary disease, unspecified (principal) | CPT/HCPCS: 94060; 94726; 94729 ==

== ENCOUNTER → 2025-07-07 | Outpatient (CLI) | payer MEDICARE, SELFPAY ==
--- NOTE | 2025-07-07 18:30 | CT_ITS ---
PROCEDURE: LOW DOSE CT LUNG SCREENING 07/07/2025 REASON FOR EXAM: SMOKER QUIT 2021 Emphysema. TECHNIQUE: Procedure Code: CTLUNGSCREEN Modality: CT Procedure: LOW DOSE CT LUNG SCREENING Coronal and Sagittal reconstruction series were provided. One or more dose reduction techniques were used (e.g., Automated exposure control, adjustment of the mA and/or kV according to patient size, use of iterative reconstruction technique). REFERENCE LINK: OTOY Lung-RADS RADIATION DOSE SUMMARY: CTDlvol: 4.0 mGy DLP: 135.4 mGycm COMPARISON: [employer] 2021. FINDINGS: PULMONARY NODULES: (Only nodules >3mm are reported) Nodules described below are on series 2 unless otherwise specified. Thyroid gland: Negative. Lungs: Mild left apical thickening. Interim development of a oblong shaped airspace opacity left lower lobe. With adjacent airspace disease. Pleura: Negative for pleural effusion or pneumothorax. Airways: Imaged bronchi and trachea negative. Mediastinum: Negative for mediastinal mass. Lymph nodes: Negative for axillary, mediastinal or hilar adenopathy. Heart and Vasculature: Heart normal size. Mild vascular calcifications of the thoracic aorta. Coronary Artery Calcifications: Slight vascular calcifications of the coronary arteries Upper Abdomen: Imaged portions negative. Hardware: None. Bones: Age-appropriate degenerative changes of the thoracic spine. CT/Low Dose CT Lung Screening IMPRESSION: Mild emphysematous changes. Geographic shaped airspace opacity with adjacent airspace disease in left lower lobe. Favor infiltrate. Lung-RADS Category: 4A SUSPICIOUS. RECOMMEND 3 MONTH LDCT Reading Location: [id number]
--- OUTSIDE RECORDS SUMMARY | 2025-07-07 21:43 | XMS RPT_ITS | CCD ---
Author Organization [facility] CliniSyal Care Team Providers Care Automatic Oven Operator Name Role Phone Steven Alfaro Unavailable Unavailable FurnessSteven Unavailable Unavailable FurnessSteven Unavailable [phone] Steven Alfaro Primary Care Provider [phone] Beto HOME FURNISHINGS SALES REPRESENTATIVE, HOME FURNISHINGS SALES REPRESENTATIVE-C Padma Attending Provider Beto HOME FURNISHINGS SALES REPRESENTATIVE, HOME FURNISHINGS SALES REPRESENTATIVE-C Padma Referring Provider Dr. Steven Alfaro Referring Provider [phone] Steven Alfaro Unavailable Xochitl Will Unavailable Unavailable Denny Dumas MD Primary Care Provider Steven Alfaro MD Primary Care Provid er Angelina, Dr. Steven Dixon Attending Un available Furness, Dr. Steven Dixon Referring Un available Furness, Dr. Steven Dixon Primary Care Un available Furness, Dr. Steven Dixon Attending Un available Furness, Dr. Steven Dixon Referring Un available Furness, Dr. Steven Dioxn Primary Care Un available Furness Steven MONTEIRO Primary Care Provider Steven Alfaro MD Unavailable STEVEN ALFARO Attending Unavailable STEVEN ALFARO Primary Care Unavailable STEVEN ALFARO Attending Unavailable STEVEN ALFARO Referring Unavailable STEVEN ALFARO Primary Care Unavailable Sara Avlarez MD Primary Care Pro vider Perez DYEING MACHINE BACK TENDER FOOD AND NUTRITION SUPERVISOR, Lilo Mir Unavailable Unavailabl e SYSTEM, PROVIDER NOT IN Attending Unavaila ble KIM, SARA SHEELA MOUNIR Primary Care Trudi vailable SYSTEM, PROVIDER NOT IN Referring Unavaila ble SYSTEM, PROVIDER NOT IN Referring Unavaila ble SYSTEM, PROVIDER NOT IN Attending Unavaila ble KIM, SARA SHEELA MOUNIR Primary Care Trudi vailable KIM, SARA SHEELA MOUNIR Primary Care Trudi vailable BOBY AIVLES Attending Unava ilable KIM, SARA SHEELA MOUNIR Primary Care Trudi vailable SABA DIEZ Attending Unavailable KIM, SARA SHEELA MOUNIR Primary Care Trudi vailable KIM, SARA SHEELA MOUNIR Referring Trudi vailable KIM, SARA SHEELA MOUNIR Attending Trudi vailable KIM, SARA SHEELA MOUNIR Attending Trudi vailable KIM, SARA SHEELA MOUNIR Primary Care Trudi vailable KIM, SARA SHEELA MOUNIR Referring Trudi vailable KIM, SARA SHEELA MOUNIR Referring Trudi vailable KIM, SARA SHEELA MOUNIR Primary Care Trudi vailable KIM, SARA SHEELA MOUNIR Attending Trudi vailable KIM, SARA SHEELA MOUNIR Referring Trudi vailable KIM, SARA SHEELA MOUNIR Primary Care Trudi vailable KMI, SARA SHEELA MOUNIR Primary Care Trudi vailable [...] SARA SHEELA MOUNIR Primary Care Trudi vailable Dr. Steven Alfaro MD Referring Provider [phone] Beto HOME FURNISHINGS SALES REPRESENTATIVE-CPadma Attending Provider KIM MONTEIRO, SARA Primary Care Provider Beto JAMES-Padma Fan Referring Provider Kim MONTEIRO, Sara H Primary Care Provider TRI ALVAREZIA H Primary Care Unavailable ЕЛЕНА BOURNE Attending Unavailabl e KIM, SARA SHEELA MOUNIR Primary Care Trudi vailable KIM, SARA SHEELA MOUNIR Primary Care Trudi vailable ROGELIO PANDA Attending Unavailable KIM, SARA SHEELA MOUNIR Primary Care Trudi vailable KIM, SARA SHEELA MOUNIR Attending Trudi vailable KIM, SRAA SHEELA MOUNIR Primary Care Trudi vailable KIM, [...] KIM, SARA SHEELA MOUNIR Attending Trudi vailable DIANA BEATTY Attending Unavailable KIM, SARA SHEELA MOUNIR Primary Care Trudi vailable KIM, SARA SHEELA MOUNIR Attending Trudi vailable KIM, SARA SHEELA MOUNIR Primary Care Trudi vailable ROGELIO PANDA Attending Unavailable KIM, SARA SHEELA MOUNIR Primary Care Trudi vailable ROGELIO PANDA Attending Unavailable KIM, SARA SHEELA MOUNIR Primary [...] FRY Attending Unavailable KIM, SARA SHEELA MOUNIR Referring Trudi vailable KIM, SARA SHEELA MOUNIR Primary Care Trudi vailable ЕЛЕНА BOURNE Attending Unavailabl e KIM, SARA SHEELA MOUNIR Primary Care Trudi vailable BAYISSA, JENS ROCHE Attending Unavail able BAYISSAJENS Attending Unavail able KIM, SARA SHEELA MOUNIR Primary Care Trudi vailable Padma Pérez Referring Unavailable Padma Pérez Attending Unavailable KIM, SARA Primary Care Unavailable Beto, Padma Attending Unavailable KIM, SARA Primary Care Unavailable Furness Steven Referring Unavailable Padma Pérez Referring Unavailable KIM, SARA Primary Care Unavailable Dwight Valadez Attending Unavailable Padma Pérez Referring Unavailable KIM, SARA Primary Care Unavailable Padma Pérez Attending Unavailable Padma Pérez Referring Unavailable Padma Pérez Attending Unavailable KIM, SARA Primary Care Unavailable Padma Pérez Attending Unavailable Furness, Steven Primary Care Unavailable Furness, Steven Referring Unavailable Allergies Allergy Classification Reported Allergen(s) Allergy Type Date of Onset Reaction(s) Facility Amoxicillin / Clavulanate (3 sources) Amoxicillin / Clavulanate; Translations: [Augmentin] Drug Allergy [facility] [place]: Penicillins (antibiotic) (5 sources) Amoxicillin; Translations: [amoxicillin] Drug Allergy 4 [facility] Sulfonamides (antibiotic) (4 sources) Sulfonamides (Antibiotic); Translations: [Sulfa Drugs] Drug Allergy 4 [facility] Work Phone: (20 sources) Amoxicillin; Translations: [amoxicillin] Drug Allergy 4 [facility] [place]: (14 sources) Amoxicillin / Clavulanate; Translations: [Augmentin] Drug Allergy [facility] [place] Work Phone: (14 sources) Sulfonamides (Antibiotic); Translations: [Sulfa Drugs] Allergy to drug (finding) Rash [facility] [place] Phone: (5 sources) sulfaSALAzine Drug Allergy 2 [facility] (6 sources) Sulfamethizole; Translations: [SULFAMETHIZOLE] Drug Allergy 3 [facility] (20 sources) Penicillins; Translations: [PENICILLINS] Propensity to adverse reactions to drug 4 [facility] (20 sources) Sulfonamides (Antibiotic); Translations: [SULFA (SULFONAMIDE ANTIBIOTICS)] Propensity to adverse reactions to drug 4 [facility] (20 sources) Bee Venom Protein (Honey Bee); Translations: [BEE VENOM PROTEIN (HONEY BEE)] Propensity to adverse reactions to drug 4 [facility] (2 sources) Amoxicillin / Clavulanate; Translations: [AMOXICILLIN-POT CLAVULANATE] Drug Allergy 3 [facility] Work Phone: (11 sources) Penicillins Propensity to adverse reactions to drug 4 [facility] (1 source) sulfaSALAzine Drug Allergy 5 [facility] Repository Medications Current Medications Medication Drug Class(es) Dates Sig (Normalized) Sig (Original) [id number] 200 actuat albuterol 0.09 mg/actuat metered dose inhaler (20 sources) beta2-Adrenergic Agonist Start: 10-19-2024 End: 10-20-2024 Start: 05-15-2023 End: 05-14-2024 take 2 puff(s) by inhalation every four hours for wheezing albuterol 90 mcg/actuation inhaler Indications: Chronic obstructive pulmonary disease, unspecified COPD type ([facility]) Inhale 2 puffs every 4 hours [...] for shortness of breath or wheezing 20 04September 12, 2022 12:19pm May 13, 2025 11:43am Start: 08-05-2019 End: 08-16-2021 take 1 puff(s) [...] Q4H as needed for COPD J44.9 180 6 November 18, 2018 10:01am February 02, 2019 [...] shortness of breath or wheezing 20 04February 12, 2018 8:46am March 16, 2018 1:00pm [...] aspirin 81 mg delayed release oral tablet (20 sources) Platelet Aggregation Inhibitor, Nonsteroidal Anti-inflammatory Drug Start: 10-19-2024 End: 11-20-2024 take 1 tablet by mouth once daily in the evening aspirin 81 MG EC tablet Take 1 (one) tablet (81 mg total) by mouth daily Start: 10/21/24. 30 tablet 10/20/2024 3:24 PM EST 10/21/2024 11/20/2024 Active 24 hr buPROPion hydrochloride 300 mg extended release oral tablet (20 sources) Aminoketone Start: 10-19-2024 End: 10-20-2024 take 1 tablet by mouth once daily 300 mg, Oral, Daily, First dose on Fri10/19/24 at 1600, Tablets to be swallowed whole. DO NOT CRUSH OR CHEW. Start: 04-24-2023 buPROPion (WEL LBUTRIN XL) 300 MG 24 hr tablet 04/24/2023 Active Start: 02-15-2019 End: 11-22-2024 take 1 tablet by mouth once daily buPROPion (WELLBUTRIN XL) 300 MG 24 hr tablet Indications: Mild major depression Take 1 (one) tablet (300 mg total) by mouth daily . 100 tablet 3 11/22/2024 Active Start: 07-31-2016 End: 04-12-2024 take 2 tablets by mouth once daily buPROPion (WELLBUTRIN XL) 150 MG 24 hr tablet Take 2 (two) tablets (300 mg total) by mouth daily . 0 07/31/2016 04/12/2024 Discontinued busPIRone hydrochloride 5 mg oral tablet (11 sources) Start: 04-01-2025 End: 04-01-2026 take 1 tablet by mouth three times daily as needed busPIRone (BUSPAR) 5 MG tablet Indications: Anxiety , Moderate major depression (HCC) Take 1 (one) tablet (5 mg total) by mouth 3 (three) times a day as needed . 90 tablet 11 04/01/2025 04/01/2026 Active Centrum Silver Women's oral tablet (1 source) [...] January 11, 2025 12:00am Start: 09-17-2016 End: 05-30-2025 take 1 capsule by mouth once daily Duloxetine (Cymbalta) 60 mg capsule,delayed release(DR/EC) Active 60 mg PO daily March 11, 2018 12:00am Start: 09-17-2016 End: 05-14-2024 take 1 capsule by mouth twice daily DULoxetine (Cymbalta) [address] capsule Indications: Anxiety Take 1 capsule (60 mg) by mouth 2 times a day. 180 capsule 3 05/15/2023 05/14/2024 Active fluconazole 100 mg oral tablet (16 sources) Azole Antifungal Start: 05-29-2022 take 1 tablet by mouth once daily fluconazole (Diflucan) 100 mg tablet Take 1 tablet (100 mg) by mouth once daily. 05/29/2022 Active fluticasone propionate 0.05 mg/actuat metered [...] 50 ug nasal route once daily Fluticasone Propiona te (Flonase Allergy Relief) 50 mcg/actuation spray,suspension Discontinued 2 NMA INTRANASAL daily 15.8 September 12, 2022 12:20pm January 11, 2025 1:23pm administer into each nostril Start: 02-01-2021 End: [...] 1 spray into each nostril once daily. Active fluticasone 50 m cg/inh nasal spray [...] Chronic obstructive pulmonary disease, unspecified COPD type ([facility]) Inhale 2 puffs 2 times a [...] NMA INHALATION TWICE A DAY 1 August 16, 2021 11:34am January 18, 2022 [...] 2 PUFF INHALATION TWICE A DAY February 01, 2021 11:25am August 16, 2021 [...] 2 NMA INHALATION TWICE A DAY 11 08February 02, 2019 1:00pm August 05, 2019 1:43pm [...] INHALATION TWICE A DAY March 16, 2018 12:00am November 04, 2018 [...] Ordered: 13-Mar-2022 Salome Bee Generic Substitution Allowed Grpqyfbyptg-Euydmocgu-Hmtfms er (6 sources) Start: 05-13-2025 Vyfaunjlohg-Mvmvahsxw-Edrjhi er (Trelegy Ellipta) 200-62.5-25 mcg blister with device Active 1 NMA INHALATION DAILY 60 5 May 13, 2025 11:43am Asthma-chronic obstructive pulmonary disease overlap syndrome Chronic obstructive pulmonary disease, unspecified Start: 01-11-2025 End: 05-13-2025 Ohbieszlcxz-Fhdtbaitd-Optjnp er (Trelegy Ellipta) 200-62.5-25 mcg blister with device Discontinued INHALATION DAILY January 11, 2025 12:00am May 13, 2025 11:43am tazmlhqlztr-ofbzzixov-sehkwc er (Trelegy Ellipta) 200-62.5-25 mcg DsDv (20 sources) Start: 04-01-2025 iztrfqrzbkk-uijqzenqt-sopvfb er (Trelegy Ellipta) 200-62.5-25 mcg DsDv Indications: Severe persistent asthma without complication Inhale 1 (one) Inhalation. daily . 60 each 5 04/01/2025 Active Start: 11-22-2024 End: 04-01-2025 czckebxusre-ssxagpfyf-vjzbml er (Trelegy Ellipta) 200-62.5-25 mcg DsDv Indications: Severe persistent asthma without complication Inhale 1 (one) Inhalation. daily . 60 each 5 11/22/2024 04/01/2025 Discontinued (Reorder (Suppress CancelRx Message to Pharmacy)) Start: 11-22-2024 fluticasone-um eclidin-vilanter (Trelegy Ellipta) 200-62.5-25 mcg DsDv Indications: Severe persistent asthma without complication Inhale 1 (one) Inhalation. daily . 60 each 5 11/22/2024 Active Start: 09-16-2024 End: 11-22-2024 vrihyrmaorh-baphdadct-cjmfpk er (Trelegy Ellipta) 200-62.5-25 mcg DsDv Inhale 1 (one) Inhalation. daily . 28 each 3 09/16/2024 11/22/2024 Discontinued (Reorder (Suppress CancelRx Message to Pharmacy)) Start: 09-16-2024 End: 11-22-2024 ipoxuwqjwwq-xdqluloos-efqnws er (Trelegy Ellipta) 200-62.5-25 mcg DsDv Indications: [...] take 1 puff(s) by inhalation once daily hvftfwnxnqo-evyywihjy-gcxoglmu (Trelegy Ellipta) 200-62.5-25 mcg DsDv Inhale 1 puff daily . 28 each 3 05/18/2024 09/16/2024 Discontinued (Reorder (Suppress CancelRx Message to Pharmacy)) Start: 05-18-2024 take 1 puff(s) by inhalation once daily nlgjkcszytz-asioytkvc-eoxdbadn (Trelegy Ellipta) 200-62.5-25 mcg DsDv Inhale 1 puff daily . 28 each 3 05/18/2024 Active furosemide 40 mg oral tablet (20 sources) Loop Diuretic Start: 03-28-2025 End: 06-07-2025 take 1 tablet by mouth twice daily furosemide (LASIX) 40 MG tablet Take 1 (one) tablet (40 mg total) by mouth 2 (two) times a day . 60 tablet 1 06/07/2025 Active Start: 07-30-2019 take 2 tablets by mo [facility] once daily Furosemide 40 MG Oral Tablet [...] Active levocetirizine dihydrochloride 5 mg oral tablet (16 sources) Histamine-1 Receptor Antagonist Start: 11-22-2024 End: 11-22-2025 take 1 tablet by mouth once daily in the evening levocetirizine (XYZAL) 5 MG tablet Indications: Seasonal allergic rhinitis due to pollen Take 1 (one) tablet (5 mg total) by mouth every evening . 30 tablet 11 11/22/2024 11/22/2025 Active levoFLOXacin 750 mg oral tablet (2 sources) Quinolone Antimicrobial Start: 05-17-2025 take 1 tablet by mouth every twenty-four hours Levofloxacin 750 mg tablet Active 750 mg PO Q24H 7 7 0 May 17, 2025 12:00am May 23, 2025 12:00am levothyroxine sodium 0.075 mg oral tablet (20 sources) l-Thyroxine Start: 10-19-2024 End: 10-20-2024 take 30 mL by mouth once daily 75 mcg, Oral, Daily, First dose on [...] for nausea . 30 tablet 05/19/2023 Active meloxicam 15 mg oral tablet (5 sources) Nonsteroidal Anti-inflammatory Drug Start: 05-25-2025 take 1 tablet by mouth once daily meloxicam (MOBIC) 15 MG tablet Indications: Right leg pain Take 1 (one) tablet (15 mg total) by mouth daily . 15 tablet 05/25/2025 Active methylPREDNISolone (5 sources) Corticosteroid Start: 04-19-2025 [...] daily montelukast (SINGULAIR) 10 mg tablet Indications: Seasonal allergic rhinitis due to pollen , Mild persistent asthma without complication Take 1 (one) tablet (10 mg total) by mouth daily . 100 tablet 3 11/22/2024 Active Start: 07-21-2014 End: 09-06-2015 take 1 tablet by mouth once daily montelukast (SINGULAIR) 10 mg tablet Indications: Asthma, moderate persistent, with acute exacerbation , Allergic rhinitis Take 1 tablet (10 mg total) by mouth daily. 90 tablet 4 07/21/2014 09/06/2015 Discontinued (Reorder (Suppress CancelRx Message to Pharmacy)) Kb-Aho-Ylzsl Acid-Lutein (Centrum Silver) 400-250 mcg tablet,chewable (2 sources) Start: 03-11-2018 take 1 tablet by mouth once At-Jlu-Jitgo Acid-Lutein (Centrum Silver) 400-250 mcg tablet,chewable Active [...] NONFORMULARY CPA P 9cm H20 (DASCO) in [facility] NONFORMULARY CPA P 9cm H20 (DASCO) in [facility] Active NONFORMULARY CPA P 9cm H20 (DASCO) in [facility] 0 Active nystatin [id number] unt/ml topical cream (10 sources) Polyene Antifungal Start: 05-29-2022 nystatin (M ycostatin) cream Apply topically twice a day. APPLY AND RUB IN A THIN FILM TO AFFECTED AREAS TWICE DAILY. (AM & PM). 05/29/2022 Active Start: 05-29-2022 Nystatin 44450 0 UNIT/GM External Cream APPLY AND RUB [...] Discontinued (Reorder (Suppress CancelRx Message to Pharmacy)) potassium chloride 10 meq extended release oral tablet (20 sources) Start: 05-26-2025 End: 05-26-2026 take 2 tablets by mouth once daily potassium chloride 10 MEQ CR tablet Indications: Hypokalemia Take 2 (two) tablets (20 mEq total) by mouth daily . 60 tablet 11 05/26/2025 05/26/2026 Active Start: 10-19-2024 End: 10-20-2024 10 mEq, Oral, Daily, First d ose on Fri10/19/24 at 1600, DO NOT CRUSH OR CHEW (if instructed may dissolve tablet(s) in liquid) DO NOT ADMINISTER DISSOLVED TABLET VIA SURGICALLY PLACED TUBE OR TUBE less than 14 Greek. To administer dissolved tablet(s) mix with 4 ounces of water over 2-3 minutes, stir for 30 seconds prior to administration; rinse dosing cup and administer residual medication to ensure full dose given Start: 08-03-2024 End: 05-25-2025 take 1 capsule by mouth once daily potassium chloride (MICRO-K) 10 MEQ CR capsule Indications: COPD with acute exacerbation (HCC) Take 1 (one) capsule (10 mEq total) by mouth daily . 90 capsule 1 08/03/2024 05/25/2025 Discontinued Start: 10-15-2018 End: 05-14-2024 take 1 tablet by mouth once daily potassium chloride SA (K-DUR,KLOR-CON) 20 MEQ tablet Take 1 (one) tablet (20 mEq total) by mouth daily . 30 tablet 11 05/15/2023 05/14/2024 Active Start: 03-11-2018 take 1 tablet by freddy once daily Potassium Chloride 20 mEq tablet extended release Active 20 meq PO daily March 11, 2018 12:00am predniSONE 20 mg oral tablet (20 sources) [...] DAILY. Quantity: 10 Refills: 0 Ordered: 02-Jan-2023 Steven Alfaro MD Start : 02-Jan-2023 Active Start: [...] food or milk. Start: 02-13-2022 End: 01-11-2025 Prednisone 10 mg tablet Disc ontinued 10 mg PO daily 30 0 August 06, 2022 3:20pm January 11, 2025 1:01pm Smoking greater than 40 pack years Nicotine dependence, cigarettes, uncomplicated take 4 tabs for three days, then 3 tabs for three days, then 2 tabs for three days, then 1 tab for 3 days Start: 11-09-2021 End: 01-18-2022 take 3 tablets [...] 11-13-2018 End: 05-10-2020 Prednisone 10 mg tablet Disc ontinued 10 mg PO daily 30 0 November 19, 2018 1:00am May 10, 2020 8:02am take 4 tabs for three days, then 3 tabs for three days, then 2 tabs for three days, then 1 tab for 3 days Start: 05-14-2018 End: 11-19-2018 take 3 tablets by mouth once daily at mealtime Prednisone 20 mg tablet Discontinued 60 mg PO daily 15 0 May 14, 2018 12:00am November 19, 2018 [...] is very important that you take or us e this exactly as directed. Do not skip doses or discontinue unless directed by your doctor.Obtain medical advice before taking any non-prescription drugs as some may affect the action of this medication.Take with food or milk. semaglutide, weight loss, (Wegovy) 0.25 mg/0.5 mL Pen (11 sources) Start: 11-22-19 End: 06-06-20 inject 0.5 mL by subcutaneous injection every week semaglutide, weight loss, (Wegovy) 0.25 mg/0.5 mL Pen Indications: Morbid obesity with body mass index (BMI) of 40.0 or higher (HCC) Inject 0.5 mL (0.25 mg total) under the skin once a week . 2 mL 1 11/22/2024 06/06/2025 Discontinued Start: 11-22-2024 inject 0.5 mL by sub cutaneous injection every week semaglutide, weight loss, (Wegovy) 0.25 mg/0.5 mL Pen Indications: Morbid obesity with body mass index (BMI) of 40.0 or higher (HCC) Inject 0.5 mL (0.25 mg total) under the skin once a week . 2 mL 1 11/22/2024 Active simvastatin 40 mg oral tablet (20 sources) HMG-CoA Reductase Inhibitor Start: 05-03-2014 End: 11-22-2024 take 1 tablet by mouth once daily simvastatin (ZOCOR) 40 MG tablet Indications: Hyperlipidemia, unspecified hyperlipidemia type Take 1 (one) tablet (40 mg total) by mouth daily . 100 tablet 3 11/22/2024 Active SUMAtriptan 50 mg oral tablet (20 sources) Serotonin-1b and Serotonin-1d Receptor Agonist Start: 2023 End: 06-15-2024 SUMAtriptan (IMITREX) 50 MG tablet Indications: Vestibular migraine Take 1 (one) tablet (50 mg total) by mouth every 2 (two) hours as needed for migraine Max of 200 mg in 24hrs, do not treat more than 3 times a week . 10 tablet 2023 Active valACYclovir 500 mg oral tablet (20 sources) Herpesvirus Nucleoside Analog DNA Polymerase Inhibitor, Herpes Simplex Virus Nucleoside Analog DNA Polymerase Inhibitor, Herpes Zoster Virus Nucleoside Analog DNA Polymerase Inhibitor Start: 04-25-2025 End: 04-25-2026 take 1 tablet by mouth twice daily valACYclovir (VALTREX) 500 MG tablet Take 1 (one) tablet (500 mg total) by mouth 2 (two) times a day . 60 tablet 11 04/25/2025 04/25/2026 Active Start: 07-07-2020 End: 05-25-2023 take 1 tablet [...] (Ventolin Hfa) 90 mcg/actuation HFA aerosol inhaler (5 sources) Start: 02-02-2019 End: 08-05-2019 Albuterol Sulfate [...] hydrochloride 0.137 mg/actuat metered dose nasal spray (20 sources) Histamine-1 Receptor Antagonist Start: 02-01-2021 End: [...] 01, 2021 11:25am administer into each nostril Azithromycin (20 sources) Macrolide Antimicrobial Start: 03-10-2025 End: 05-25-2025 azithromycin (Z-ALEYDA) 5 day dose pack Indications: Upper respiratory tract infection, unspecified type Follow package instructions. . 6 tablet 03/10/2025 05/25/2025 Discontinued Start: 03-10-2025 azithromycin ( Z-ALEYDA) 5 day dose pack Indications: Upper respiratory [...] tablet Discontinued 0 PO .COMPLEX 6 0 November 09, 2021 9:48am January 18, 2022 [...] 12, 2017 1:00am March 16, 2018 12:27pm bisacodyl 10 mg rectal suppository (1 source) [...] Substitution Allowed cholecalciferol 0.025 mg oral capsule (6 sources) Vitamin D Start: 03-11-2018 End: 01-11-2025 [...] . 30 tablet 11 04/01/2025 04/01/2025 Discontinued fexofenadine hydrochloride 180 mg oral tablet (20 sources) Histamine-1 Receptor Antagonist End: 05-25-2025 fexofenadine (ARIELLA) 180 MG tablet Take 1 (one) tablet (180 mg total) by mouth . 05/25/2025 Discontinued take 1 tablet by mouth once la y Ariella 24 Hour Allergy oral tablet ; 1 tab(s) orally once a day Quantity: 0 Refills: 0 Ordered: 13-Mar-2022 Salome Bee Generic Substitution Allowed Fluad Quad (65yr up)(PF) 60 mcg (15 mcg x 4)/0.5mL IM syringe (flu vac (1 source) Start: 08-16-2021 End: 08-16-2021 Fluad Quad (65yr up)(PF) 60 mcg (15 mcg x 4)/0.5mL IM syringe (flu vac Discontinued 60 MCG IM ONCE 0.5 August 16, 2021 10:59am August 16, 2021 11:38am 12 hr guaiFENesin 600 mg extended release oral tablet (14 sources) Start: 05-13-2025 End: 05-13-2025 take 1 [...] 12hr Discontinued 1200 mg PO Q12H 30 6 January 18, 2022 11:01am January 11, 2025 [...] in 1 hour proceed to trazodone (Desyrel) Ekqphccs-Yqf-Jvrxt Acid-Lutein (Centrum Silver) 400-250 mcg tablet,chewable (3 sources) Start: 03-11-2018 End: 01-11-2025 Dukohgzh-Jgv-Pfenv Acid-Lutein (Centrum Silver) 400-250 mcg tablet,chewable Discontinued {tbl} PO 0 March 11, 2018 12:00am January 11, 2025 1:03pm fqnpvcbm-htw-jvle-FA- lutein (Centrum Silver Women) 8 mg iron-400 mcg-300 mcg Tab (2 sources) End: 04-12-2024 take 1 tablet by mouth once tucjhmmi-bgt-ggpd-FA -lutein (Centrum Silver Women) 8 mg iron-400 mcg-300 mcg Tab Take 1 tablet by mouth . 0 04/12/2024 Discontinued take 1 tablet by mouth once mult bkuy-obt-jrej-FA-lutein (Centrum Silver Women) 8 mg iron-400 mcg-300 [...] Steven Alfaro MD Start : 17-Aug-2019 Active QUEtiapine 25 mg oral tablet (11 sources) Atypical Antipsychotic Start: 06-06-2020 End: 01-11-2025 take 1 tablet by mouth once daily Quetiapine 25 mg tablet Discontinued 25 mg PO DAILY February 01, 2021 12:00am January 11, 2025 1:03pm sennosides, senior living 8.6 mg oral tablet (1 source) Start: [...] 2.5 ug by inhalation once daily Tiotropium Loraine (Spiriva Respimat) 2.5 mcg/actuation mist Discontinued 2 NMA INHALATION daily 02 06November 25, 2022 8:39am November 28, 2022 2:07pm Start: 12-27-2020 End: 01-18-2022 take 1 puff(s) by inhalation once daily Tiotropium Loraine (Spiriva Respimat) 2.5 mcg/actuation mist Discontinued 2 PUFF INHALATION daily August 16, 2021 11:35am January 18, 2022 10:58am Start: 05-10-2020 End: 12-27-2020 take 1 puff(s) by inhalation once daily Tiotropium Loraine (Spiriva Respimat) 2.5 mcg/actuation mist Discontinued 2 PUFF INHALATION daily May 10, 2020 8:37am December 27, 2020 9:14am Start: 05-10-2020 End: 12-27-2020 take 2.5 ug by inhalation once daily Tiotropium Loraine (Spiriva Respimat) 2.5 mcg/actuation mist Discontinued 2 NMA INHALATION daily 02 06May 10, 2020 12:00am December 27, 2020 9:14am Start: 05-10-2020 End: 12-27-2020 take 1 puff(s) by inhalation once daily Tiotropium Loraine (Spiriva Respimat) 2.5 mcg/actuation mist Discontinued 2 [...] puff traZODone hydrochloride 50 mg oral tablet (10 sources) Serotonin Reuptake Inhibitor Start: 10-19-2024 End: [...] actuat umeclidinium 0.0625 mg/actuat dry powder inhaler (13 sources) Anticholinergic Start: 04-27-2024 End: 07-13-2024 take [...] Chronic obstructive pulmonary disease, unspecified COPD type ([facility]) Inhale 1 puff (62.5 mcg) once daily. 90 each 3 05/15/2023 05/14/2024 Active Start: 11-28-2022 End: 01-11-2025 take 62.5 ug by inhalation once daily Umeclidinium (Incruse Ellipta) 62.5 mcg/actuation blister with device Discontinued 1 NMA INHALATION daily 30 November 28, 2022 1:00am January 11, 2025 1:03pm vitamin b12 2.5 mg oral tablet (9 sources) Vitamin B12 End: 08-30-2024 cyanocobalamin, vitamin B-12 , 2,500 mcg Tab Take 1 (one) tablet (2,500 mcg total) by mouth . 08/30/2024 Discontinued (Patient's Request) Problems Active Problems Problem Classification Problem Date Documented Da te Episodic/Chronic Adjustment disorders (2 sources) Grief finding; Translations: [Adjustment disorder with depressed mood] 06-06-2025 Chronic Anxiety disorders (20 sources) Anxiety; Translations: [Anxiety state, unspecified] Onset: 3 05-15-2023 Chronic Asthma (20 sources) Asthma; Translations: [...] [Other specified chronic obstructive pulmonary disease] Onset: 4 Conditions associated with dizziness or vertigo (1 [...] Onset: 4 07-21-2014 Chronic Headache; including migraine (5 sources) Migraine variants; Translations: [Variants of migraine, not elsewhere classified, without mention of intractable migraine without mention of status migrainosus] Onset: 5 03-13-2022 Chronic Headache; including migraine (1 source) Acute headache; Translations: [Headache] 03-13-2022 Episodic Headache; including migraine (1 source) Headache; including migraine 03-13-2022 Immunizations and screening for infectious disease (4 sources) Anti-nuclear factor positive; Translations: [Other specified abnormal immunological findings in serum] 06-03-2025 Episodic Mood disorders (20 sources) Depressive disorder; Translations: [Depression] Onset: 4 10-13-2014 Chronic Neoplasms of unspecified nature or uncertain behavior (5 sources) Neoplasm of uncertain behavior of skin; Translations: [Neoplasm of uncertain behavior of skin] 03-11-2018 Episodic Nutritional deficiencies (5 sources) Vitamin D deficiency; Translations: [Vitamin D deficiency, unspecified] 03-11-2018 Chronic Other and unspecified benign neoplasm (5 sources) Hemangioma of skin; Translations: [Hemangioma of skin and subcutaneous tissue] 03-11-2018 Episodic Other bone disease and musculoskeletal deformities (5 sources) Osteopenia; Translations: [Other specified disorders of bone density and structure, unspecified site] 03-11-2018 Episodic Other connective tissue disease (4 sources) Pain in right lower limb; Translations: [Pain in right leg] 05-25-2025 Episodic Other connective tissue disease (2 sources) Pain of right lower leg; Translations: [Pain in right lower leg] Onset: 5 05-26-2025 Episodic Other connective tissue disease (4 sources) Pain in right leg; Translations: [Pain in right leg] Onset: 5 Episodic Other connective tissue disease (1 source) Pain in right lower leg; Translations: [Pain in right lower leg] Onset: 5 Episodic Other ear and sense organ disorders (1 source) Sensorineural hearing loss, bilateral; Translations: [Sensorineural hearing loss, bilateral] 2023 Chronic Other ear and sense organ disorders (1 source) Impacted cerumen in right ear; Translations: [Impacted cerumen, right ear] 2023 Episodic Other inflammatory condition of skin (5 sources) Artefactual skin disease; Translations: [Factitial dermatitis] 03-11-2018 Episodic Other injuries and conditions due to external causes (1 source) At low risk for fall; Translations: [History of falling] 10-28-2024 Episodic Other lower respiratory disease (1 source) Multiple nodules of lung; Translations: [Other nonspecific abnormal finding of lung field] 11-16-2024 Episodic Other non-epithelial cancer of skin (5 sources) Personal history of other malignant neoplasm of skin 03-11-2018 Episodic Other non-traumatic joint disorders (1 source) Joint pain; Translations: [Pain in unspecified joint] 05-25-2025 Episodic Other non-traumatic joint disorders (2 sources) Pain in unspecified joint; Translations: [Pain in unspecified joint] Onset: 5 Episodic Other nutritional; endocrine; and metabolic disorders [...] (severe) obesity due to excess calories] Onset: 4 Chronic Other skin disorders (5 sources) Actinic keratosis; Translations: [Actinic keratosis] 03-11-2018 Episodic Other skin disorders (5 sources) Seborrheic keratosis; Translations: [Other seborrheic keratosis] 03-11-2018 Episodic Other skin disorders (5 sources) Lentiginosis; Translations: [Other melanin hyperpigmentation] 03-11-2018 [...] rhinitis due to pollen] Onset: 4 Chronic Phlebitis; thrombophlebitis and thromboembolism (2 sources) Deep venous thrombosis of peroneal vein 08-30-2024 Chronic Phlebitis; thrombophlebitis and thromboembolism (18 sources) Deep venous thrombosis of peroneal vein; Translations: [Acute embolism and thrombosis of right peroneal vein] Onset: 5 08-29-2024 Episodic Pulmonary heart disease (5 sources) Pulmonary hypertension; Translations: [Pulmonary hypertension, unspecified] Onset: 4 10-18-2024 Chronic Residual codes; unclassified (20 sources) Sleep apnea; Translations: [Unspecified sleep apnea] [...] (adult)(pediatric)] Onset: 3 Chronic Residual codes; unclassified (5 sources) History of nasal sinus surgery; Translations: [...] 10-19-2024 Episodic Other and unspecified benign neoplasm (20 sources) Polyp of colon; Translations: [Benign neoplasm [...] Translations: [Breast screening, unspecified] Onset: 07-24-2024 Episodic Other upper respiratory infections (20 sources) Posterior rhinorrhea; Translations: [Postnasal drip] Onset: 02-10-2025 02-10-2025 Episodic Pneumonia (except that caused by tuberculosis or sexually transmitted disease) (3 sources) Community acquired pneumonia; Translations: [Pneumonia, unspecified organism] Onset: 09-16-2024 09-16-2024 Episodic Pulmonary heart disease (20 sources) Pulmonary thromboembolism; Translations: [Other pulmonary embolism without acute cor pulmonale] Onset: 07-25-2024 08-30-2024 Episodic Residual codes; unclassified (18 sources) Persistent insomnia; Translations: [Persistent disorder of initiating or maintaining sleep] Onset: 05-13-2023 05-13-2023 Episodic Residual codes; unclassified (20 sources) Insomnia; Translations: [Insomnia, unspecified] Onset: 03-13-2010 07-21-2014 Episodic Residual codes; unclassified (9 sources) Past history of procedure; Translations: [Other specified personal history presenting hazards to health] Onset: 04-11-2020 Episodic Residual codes; unclassified (4 sources) Bilateral lower leg edema; Translations: [Localized edema] Onset: 05-15-2023 05-15-2023 Episodic Residual codes; unclassified (2 sources) Localized edema; Translations: [Localized edema] Onset: 05-15-2023 Episodic Thyroid disorders (3 sources) Atrophy of thyroid - acquired; Translations: [Atrophy of thyroid (acquired)] Onset: 05-13-2023 05-15-2023 Episodic Unclassified (2 sources) Patient encounter status; Translations: [Screening breast examination] Unclassified (17 sources) Onset: 05-15-2023 Resolved: 10-27-2024 05-15-2023 Unclassified (1 source) Cough, unspecified; Translations: [Cough, unspecified] Onset: 10-28-2024 NEGATED: Highlighted row has not occurred!Residual codes; unclassified (7 sources) Disease Episodic Results Test Name Value Interpretation Reference Range Facility BASIC METABOLIC PANEL WITH A NION GAPon 06-04-2025 BUN/CREATININE RATIO SEE NOTE: Normal 6-22 [facility] Comment on above: Order Comment: FASTI NG:NO FASTING: NO Result Comment: Not Reported: BUN and Creatinine are within reference range. Performed By: #### 9 1008 #### [facility] [address], [address] [place] [address] Wrister: Cornel Monroe MD Calcium [Mass/Vol] 8.9 mg/dL Normal 8.6-10.4 [facility] Comment on above: Order Comment: FASTI NG:NO FASTING: NO Performed By: #### 9 [id number] #### [facility] [address], [address] [place] [address] Wrister: Cornel Monroe MD Chloride [Moles/Vol] 102 mmol/L Normal 98-110 [facility] Comment on above: Order Comment: FASTI NG:NO FASTING: NO Performed By: #### 9 [id number] #### [facility] [place] [address] Wrister: Cornel Monroe MD CO2 [Moles/Vol] 26 mmol/L Normal 20-32 [facility] Comment on above: Order Comment: FASTI NG:NO FASTING: NO Performed By: #### 9 7478 #### [facility] [place] [address] Wrister: Cornel Monroe MD Creatinine [Mass/Vol] 0.94 mg/dL Normal 0.60-1.[address] [facility] Comment on above: Order Comment: FASTI NG:NO FASTING: NO Performed By: #### 9 [id number] #### [facility] [place] [address] Wrister: Cornel Monroe MD ELECTROLYTE BALANCE 12 mmol/L (calc) Normal 7-17 [facility] Comment on above: Order Comment: FASTI NG:NO FASTING: NO Performed By: #### 9 5240 #### [facility] [place] [address] Wrister: Cornel Monroe MD GFR/1.73 sq M.predicted among non-blacks MDRD (S/P/Bld) [Vol rate/Area] 64 mL/min/{1.73_m2} Normal > OR = 60 [facility] Comment on above: Order Comment: FASTI NG:NO FASTING: NO Performed By: #### 9 2498 #### [facility] [address], [address] [place] [address] Wrister: Cornel Monroe MD Glucose [Mass/Vol] 87 mg/dL Normal 65-139 [facility] Comment on above: Order Comment: FASTI NG:NO FASTING: NO Result Comment: Non-fasting reference interval Performed By: #### 9 2498 #### [facility] [address], [address] [place] [address] Wrister: Cornel Monroe MD Potassium [Moles/Vol] 3.7 mmol/L Normal 3.5-5.[address] [facility] Comment on above: Order Comment: FASTI NG:NO FASTING: NO Performed By: #### 9 2498 #### [facility] [address], [address] [place] [address] Wrister: Cornel Monroe MD Sodium [Moles/Vol] 140 mmol/L Normal 135-146 [facility] Comment on above: Order Comment: FASTI NG:NO FASTING: NO Performed By: #### 9 2498 #### [facility] [place] [address] Wrister: Cornel Monroe MD Urea nitrogen [Mass/Vol] 16 mg/dL Normal 7-25 [facility] Comment on above: Order Comment: FASTI NG:NO FASTING: NO Performed By: #### 9 2498 #### [facility] [place] [address] Wrister: Cornel Monroe MD JAYME SCREEN, IFA, W/REFL SHARLAE Yuliya AND VANESSAon 05-31-2025 JAYME SCREEN, IFA Positive Abnormal NEGATIVE [facility] Comment on above: Result Comment: JAYME IFA is a first line screen for detecting the presence of up to approximately 150 autoantibodies in various autoimmune diseases. A positive JAYME IFA result is suggestive of autoimmune disease and reflexes to titer and pattern. Further laboratory testing may be considered if clinically indicated. For additional information, please refer to [email or web address].MoboTap.Skyn [place]/faq/XCB608 (This link is being provided for informational/ educational purposes only.) Performed By: #### 1 4852, 55501, 90883, 496 #### [facility] [address], [address] [place] [address] Wrister: Cornel Monroe MD ANTINUCLEAR ANTIBODIES TITER AND PATTERNon 05-31-2025 JAYME PATTERN Cytoplasmic Abnormal [facility] Comment on above: Result Comment: The presence of cytoplasmic fluorescence was noted on the HEp-2 slide. Other reactivities (e.g., anti- mitochondrial antibodies or anti-smooth muscle antibodies) may be responsible for this fluorescence. The clinical significance of this finding is uncertain. Clinical correlation is recommended. AC-15 to AC-23: Cytoplasmic International Consensus on JAYME Patterns (https://doi.org/10.1515/pzta-2374-8383) Performed By: #### 1 4852, 47127, 89931, 496 #### [facility] [place] [address] [address] , [address] [place] [address] Wrister: Cornel Monroe MD JAYME PATTERN Nuclear, Speckled Abnormal [facility] Comment on above: Result Comment: Spec kled pattern is associated with mixed connective tissue disease (MCTD), systemic lupus erythematosus (SLE), Sjogren's syndrome, dermatomyositis, and systemic sclerosis/polymyositis overlap. AC-2,4,5,29: Speckled International Consensus on JAYME Patterns (https://doi.org/10.1515/eflc-4666-1065) Performed By: #### 1 4852, 51710, 64562, 496 #### [facility] [place] [address], [address] [place], [place] [id number] Wrister: Cornel Monroe MD JAYME TITER > OR = 1:1280 Abnormal [facility] Comment on above: Result Comment: Refe rence Range <1:40 Negative 1:40-1:80 Low Antibody Level >1:80 Elevated Antibody Level Performed By: #### 1 4852, 44107, 85985, 496 #### [facility] of [address], [address] [place] [address] Wrister: Cornel Monroe MD JAYME TITER 1:80 High [facility] Comment on above: Result Comment: A lo w level JAYME titer may be present in pre-clinical autoimmune diseases and normal individuals. Reference Range <1:40 Negative 1:40-1:80 Low Antibody Level >1:80 Elevated Antibody Level Performed By: #### 1 4852, 66105, 54146, 496 #### [facility] of [address], [address] [place] [address] Wrister: Cornel Monroe MD C-REACTIVE PROTEINon 025 CRP [Mass/Vol] 5.3 mg/L Normal <8.0 [facility] Comment on above: Performed By: #### 1 4852, 12380, 85078, 496 #### [facility] [address], [address] [place] [address] Wrister: Cornel Monroe MD CBC (INCLUDES DIFF/PLT)on Basophils (Bld) [#/Vol] 0.071 10*3/uL Normal 0-200 [facility] Comment on above: Performed By: #### 3 7092 #### [facility]/[address] [place], [place] Wrister: Steven Sharpe M.D.,PhD #### 30102, 374, 19212, 4420, 809, 6399, 4418, %52552, 7065, 22734 #### [facility] of [address], [address] [place], [place] [id number] Wrister: Cornel Monroe MD Basophils/100 WBC (Bld) 0.9 % Normal [facility] Comment on above: Performed By: #### 3 7092 #### [facility]/[place] [id number] [facility] [place], [place] Wrister: Steven Sharpe M.D.,PhD #### 70287, 374, 93849, 4420, 809, 6399, 4418, %46565, 7065, 38098 #### [facility] of [address], [address] [place], [place] [id number] Wrister: Cornel Monroe MD Eosinophils (Bld) [#/Vol] 0.292 10*3/uL Normal 15-500 [facility] Comment on above: Performed By: #### 3 7092 #### [facility]/[address] [place] Wrister: Steven Sharpe M.D.,PhD #### 08243, 374, 71895, 4420, 809, 6399, 4418, %39647, 7065, 69561 #### [facility] of [place] [id number] Wrister: Cornel Monroe MD Eosinophils/100 WBC (Bld) 3.7 % Normal [facility] Comment on above: Performed By: #### 3 7092 #### [facility]/[address] [place] Wrister: Steven Sharpe M.D.,PhD #### 84703, 374, 37147, 4420, 809, 6399, 4418, %12494, 7065, 64916 #### [facility] of [place] [id number] Wrister: Cornel Monroe MD Erythrocyte distribution width (RBC) [Ratio] 13.3 % Normal 11.0-15.0 [facility] Comment on above: Performed By: #### 3 7092 #### [facility]/[address] [place] Wrister: Steven Sharpe M.D.,PhD #### 13292, 374, 87785, 4420, 809, 6399, 4418, %65791, 7065, 10086 #### [facility] of [address] [place] [address] Wrister: Cornel Monroe MD Hematocrit (Bld) [Volume fraction] 38.6 % Normal 35.0-45.0 [facility] Comment on above: Performed By: #### 3 7092 #### [facility]/[address] [place] Wrister: Steven Sharpe M.D.,PhD #### 55664, 374, 59613, 4420, 809, 6399, 4418, %37034, 7065, 54495 #### [facility] of [place] [address] [address] , [address] [place], [place] [id number] Wrister: Cornel Monroe MD Hemoglobin (Bld) [Mass/Vol] 12.8 g/dL Normal 11.7-15.5 [facility] Comment on above: Performed By: #### 3 7092 #### [facility]/[address] [place] Wrister: Steven Sharpe M.D.,PhD #### 48426, 374, 99471, 4420, 809, 6399, 4418, %97149, 7065, 54535 #### [facility] of [place] [address] [address] , [address] [place], [place] [id number] Wrister: Cornel Monroe MD Lymphocytes (Bld) [#/Vol] 1.959 10*3/uL Normal 850-3900 [facility] Comment on above: Performed By: #### 3 7092 #### [facility]/[address] [place] Wrister: Steven Sharpe M.D.,PhD #### 56298, 374, 73602, 4420, 809, 6399, 4418, %28264, 7065, 22114 #### [facility] of [place] [address] [address] , [address] [place], [place] [phone] Wrister: Cornel Monroe MD Lymphocytes/100 WBC (Bld) 24.8 % Normal [facility] Comment on above: Performed By: #### 3 7092 #### [facility]/[address] [place] Wrister: Steven Sharpe M.D.,PhD #### 81721, 374, 41208, 4420, 809, 6399, 4418, %51224, 7065, 77801 #### [facility] [address], [address] [place] [address] Wrister: Cornel Monroe MD MCH (RBC) [Entitic mass] 30.3 pg Normal 27.0-33.0 [facility] Comment on above: Performed By: #### 3 7092 #### [facility]/[place] [address] [facility] [place] Wrister: Steven Sharpe M.D.,PhD #### 45229, 374, 53260, 4420, 809, 6399, 4418, %88333, 7065, 87311 #### [facility] [address] Wrister: Cornel Monroe MD MCHC (RBC) [Mass/Vol] 33.2 g/dL Normal 32.0-36.[address] [facility] Comment on above: Result Comment: For adults, a slight decrease in the calculated MCHC value (in the range of 30 to 32 g/dL) is most likely not clinically significant; however, it should be interpreted with caution in correlation with other red cell parameters and the patient's clinical condition. Performed By: #### 3 7092 #### [facility]/[address] [place] Wrister: Steven Sharpe M.D.,PhD #### 18508, 374, 90950, 4420, 809, 6399, 4418, %65822, 7065, 60699 #### [facility] of [place] [address] [place] [address] Wrister: Cornel Monroe MD MCV (RBC) [Entitic vol] 91.3 fL Normal 80.0-100.0 [facility] Comment on above: Performed By: #### 3 7092 #### [facility]/[address] [place] Wrister: Steven Sharpe M.D.,PhD #### 13927, 374, 81057, 4420, 809, 6399, 4418, %87196, 7065, 35258 #### [facility] [address] Wrister: Cornel Monroe MD Monocytes (Bld) [#/Vol] 0.498 10*3/uL Normal 200-950 [facility] Comment on above: Performed By: #### 3 7092 #### [facility]/[address] [place] Wrister: Steven Sharpe M.D.,PhD #### 13339, 374, 64701, 4420, 809, 6399, 4418, %07907, 7065, 86405 #### [facility] [place] [id number] Wrister: Cornel Monroe MD Monocytes/100 WBC (Bld) 6.3 % Normal [facility] Comment on above: Performed By: #### 3 7092 #### [facility]/[address] [place] Wrister: Steven Sharpe M.D.,PhD #### 51779, 374, 99092, 4420, 809, 6399, 4418, %27167, 7065, 51794 #### [facility] of [place] [id number] Wrister: Cornel Monroe MD Neutrophils (Bld) [#/Vol] 5.08 10*3/uL Normal 3844-7249 [facility] Comment on above: Performed By: #### 3 7092 #### [facility]/[address] [place] Wrister: Steven Sharpe M.D.,PhD #### 44989, 374, 58245, 4420, 809, 6399, 4418, %85395, 7065, 27554 #### [facility] of [place] [id number] Wrister: Cornel Monroe MD Neutrophils/100 WBC (Bld) 64.3 % Normal [facility] Comment on above: Performed By: #### 3 7092 #### [facility]/[address] [place] Wrister: Steven Sharpe M.D.,PhD #### 93206, 374, 22911, 4420, 809, 6399, 4418, %53189, 7065, 46648 #### [facility] of [address], [address] [place], [place] [phone] Wrister: Cornel Monroe MD Platelet mean volume (Bld) [Entitic vol] 10.1 fL Normal 7.5-12.5 [facility] Comment on above: Performed By: #### 3 7092 #### [facility]/[address] [place] Wrister: Steven Sharpe M.D.,PhD #### 59967, 374, 54535, 4420, 809, 6399, 4418, %85139, 7065, 89595 #### [facility] of [place] [address] [address] [place] [id number] Wrister: Cornel Monroe MD Platelets (Bld) [#/Vol] 165 10*3/uL Normal 140-400 [facility] Comment on above: Performed By: #### 3 7092 #### [facility]/[place] [address] [place], [place] Wrister: Steven Sharpe M.D.,PhD #### 95162, 374, 26072, 4420, 809, 6399, 4418, %79109, 7065, 85305 #### [facility] of [place] [address] [address] , [address] [place] [address] Wrister: Cornel Monroe MD RBC (Bld) [#/Vol] 4.23 10*6/uL Normal 3.80-5.10 [facility] Comment on above: Performed By: #### 3 7092 #### [facility]/[address] [place] Wrister: Steven Sharpe M.D.,PhD #### 61126, 374, 28242, 4420, 809, 6399, 4418, %74355, 7065, 72182 #### [facility] [place] [address] [address] , [address] [place] [address] Wrister: Cornel Monroe MD WBC (Bld) [#/Vol] 7.9 10*3/uL Normal 3.8-10.8 [facility] Comment on above: Performed By: #### 3 7092 #### [facility]/[address] [place] Wrister: Steven Sharpe M.D.,PhD #### 01513, 374, 09270, 4420, 809, 6399, 4418, %31694, 7065, 79273 #### [facility] of [place] [address] [address] , [address] [place], [place] [phone] Wrister: Cornel Monroe MD COMPREHENSIVE METABOLIC PANE Laim W/SANYA Lemons 05-31-2025 Albumin [Mass/Vol] 4.2 g/dL Normal 3.6-5.1 [facility] Comment on above: Order Comment: FASTI NG:NO FASTING: NO Performed By: #### 3 7092 #### [facility]/[address] [place], [place] Wrister: Steven Sharpe M.D.,PhD #### 90652, 374, 92645, 4420, 809, 6399, 4418, %78986, 7065, 78634 #### [facility] [address], [address] [place], [place] [id number] Wrister: Cornel Monroe MD ALP [Catalytic activity/Vol] 71 U/L Normal 37-153 [facility] Comment on above: Order Comment: FASTI NG:NO FASTING: NO Performed By: #### 3 7092 #### [facility]/[place] [id number] [facility] [place] Wrister: Steven Sharpe M.D.,PhD #### 57475, 374, 51601, 4420, 809, 6399, 4418, %71495, 7065, 23258 #### [facility] [address], [address] [place], [place] [id number] Wrister: Cornel Monroe MD ALT [Catalytic activity/Vol] 8 U/L Normal 6-29 [facility] Comment on above: Order Comment: FASTI NG:NO FASTING: NO Performed By: #### 3 7092 #### [facility]/[address] [place], [place] Wrister: Steven Sharpe M.D.,PhD #### 72396, 374, 28878, 4420, 809, 6399, 4418, %30149, 7065, 81751 #### [facility] [address], [address] [place], [place] [id number] Wrister: Cornel Monroe MD AST [Catalytic activity/Vol] 13 U/L Normal 10-35 [facility] Comment on above: Order Comment: FASTI NG:NO FASTING: NO Performed By: #### 3 7092 #### [facility]/[place] [address] [facility] [address] [place] Wrister: Steven Sharpe M.D.,PhD #### 08208, 374, 21694, 4420, 809, 6399, 4418, %12523, 7065, 53196 #### [facility] [place] [id number] Wrister: Cornel Monroe MD Bilirubin [Mass/Vol] 0.6 mg/dL Normal 0.2-1.2 [facility] Comment on above: Order Comment: FASTI NG:NO FASTING: NO Performed By: #### 3 7092 #### [facility]/[address] [place] Wrister: Steven Sharpe M.D.,PhD #### 41298, 374, 38146, 4420, 809, 6399, 4418, %03140, 7065, 04180 #### [facility] [place] [id number] Wrister: Cornel Monroe MD Calcium [Mass/Vol] 9.2 mg/dL Normal 8.6-10.4 [facility] Comment on above: Order Comment: FASTI NG:NO FASTING: NO Performed By: #### 3 7092 #### [facility]/[address] [place] Wrister: Steven Sharpe M.D.,PhD #### 44504, 374, 80180, 4420, 809, 6399, 4418, %83379, 7065, 29046 #### [facility] [place] [id number] Wrister: Cornel Monroe MD Chloride [Moles/Vol] 100 mmol/L Normal 98-110 [facility] Comment on above: Order Comment: FASTI NG:NO FASTING: NO Performed By: #### 3 7092 #### [facility]/[address] [place], [place] Wrister: Steven Sharpe M.D.,PhD #### 95695, 374, 13133, 4420, 809, 6399, 4418, %59473, 7065, 59364 #### [facility] [address], [address] [place], [place] [id number] Wrister: Cornel Monroe MD CO2 [Moles/Vol] 32 mmol/L Normal 20-32 [facility] Comment on above: Order Comment: FASTI NG:NO FASTING: NO Performed By: #### 3 7092 #### [facility]/[address] [place], [place] Wrister: Steven Sharpe M.D.,PhD #### 24591, 374, 04912, 4420, 809, 6399, 4418, %30618, 7065, 71319 #### [facility] [address], [address] [place], [place] [address] Wrister: Cornel Monroe MD Creatinine [Mass/Vol] 0.87 mg/dL Normal 0.60-1.[address] [facility] [address] [facility] Comment on above: Order Comment: FASTI NG:NO FASTING: NO Performed By: #### 3 7092 #### [facility]/[address] [place], [place] Wrister: Steven Sharpe M.D.,PhD #### 21767, 374, 85696, 4420, 809, 6399, 4418, %56779, 7065, 69822 #### [facility] [address], [address] [place], [place] [address] Wrister: Cornel Monroe MD ELECTROLYTE BALANCE 10 mmol/L (calc) Normal 7-17 [facility] Comment on above: Order Comment: FASTI NG:NO FASTING: NO Performed By: #### 3 7092 #### [facility]/[address] [place], [place] Wrister: Steven Sharpe M.D.,PhD #### 51394, 374, 98021, 4420, 809, 6399, 4418, %32595, 7065, 35490 #### [facility] [place] [address] Wrister: Cornel Monroe MD GFR/1.73 sq M.predicted among non-blacks MDRD (S/P/Bld) [Vol rate/Area] 70 mL/min/{1.73_m2} Normal > OR = 60 [facility] Comment on above: Order Comment: FASTI NG:NO FASTING: NO Performed By: #### 3 7092 #### [facility]/[address] [place], [place] Wrister: Steven Sharpe M.D.,PhD #### 09441, 374, 90733, 4420, 809, 6399, 4418, %44279, 7065, 35079 #### [facility] [address], [address] [place], [place] [address] Wrister: Cornel Monroe MD Glucose [Mass/Vol] 93 mg/dL Normal 65-139 [facility] Comment on above: Order Comment: FASTI NG:NO FASTING: NO Result Comment: Non-fasting reference interval Performed By: #### 3 7092 #### [facility]/[address] [place] Wrister: Steven Sharpe M.D.,PhD #### 69090, 374, 94409, 4420, 809, 6399, 4418, %09246, 7065, 71535 #### [facility] [address] Wrister: Cornel Monroe MD Potassium [Moles/Vol] 3.2 mmol/L Low 3.5-5.[address] [facility] Comment on above: Order Comment: FASTI NG:NO FASTING: NO Performed By: #### 3 7092 #### [facility]/[employer] [address] [place] Wrister: Steven Sharpe M.D.,PhD #### 58480, 374, 16467, 4420, 809, 6399, 4418, %91069, 7065, 66751 #### [facility] [address], [address] [place], [place] [address] Wrister: Cornel Monroe MD Protein [Mass/Vol] 6.8 g/dL Normal 6.1-8.1 [facility] Comment on above: Order Comment: FASTI NG:NO FASTING: NO Performed By: #### 3 7092 #### [facility]/[address] [place], [place] Wrister: Steven Sharpe M.D.,PhD #### 11027, 374, 33928, 4420, 809, 6399, 4418, %22496, 7065, 73310 #### [facility] [address], [address] [place], [place] [address] Wrister: Cornel Monroe MD Sodium [Moles/Vol] 142 mmol/L Normal 135-146 [facility] Comment on above: Order Comment: FASTI NG:NO FASTING: NO Performed By: #### 3 7092 #### [facility]/[address] [place], [place] Wrister: Steven Sharpe M.D.,PhD #### 25146, 374, 81370, 4420, 809, 6399, 4418, %02752, 7065, 78704 #### [facility] [place] [address] Wrister: Cornel Monroe MD Urea nitrogen [Mass/Vol] 12 mg/dL Normal 7-25 [facility] Comment on above: Order Comment: FASTI NG:NO FASTING: NO Performed By: #### 3 7092 #### [facility]/[place] [id number] [facility] [address] [place], [place] Wrister: Steven Sharpe M.D.,PhD #### 92855, 374, 08534, 4420, 809, 6399, 4418, %98500, 7065, 56474 #### [facility] of [address], [address] [place] [address] Wrister: Cornel Monroe MD CREATINE KINASE, TOTALon CREATINE KINASE, TOTAL 183 U/L Normal 18-225 [facility] Comment on above: Performed By: #### 3 7092 #### [facility]/[place] [id number] [facility] [place] Wrister: Steven Sharpe M.D.,PhD #### 31785, 374, 47516, 4420, 809, 6399, 4418, %94070, 7065, 56188 #### [facility] [address], [address] [place] [address] Wrister: Cornel Monroe MD CYCLIC CITRULLINATED PEPTIDE (CCP) AB (IGG)on 05-31-2025 CYCLIC CITRULLINATED PEPTIDE (CCP) AB (IGG) <16 Normal [facility] Comment on above: Result Comment: Refe rence Range Negative: <20 Weak Positive: 20-39 Moderate Positive: 40-59 Strong Positive: >59 Performed By: #### 1 4852, 15675, 11200, 496 #### [facility] [address], [address] [place] [address] Wrister: Cornel Monroe MD DNA (DS) ANTIBODY, CRITHIDIA , IFA W/REFL 05-31-2025 DNA AB (DS) CRITHIDIA,IFA Negative Normal Negative [facility] Comment on above: Performed By: #### 3 7092 #### [facility]/[address] [place] Wrister: Steven Sharpe M.D.,PhD #### 37878, 374, 96919, 4420, 809, 6399, 4418, %29844, 7065, 35608 #### [facility] [address], [address] [place] [address] Wrister: Cornel Monroe MD RHEUMATOID FACTORon 05-31-20 25 RHEUMATOID FACTOR 14 IU/mL High <14 [facility] Comment on above: Performed By: #### 1 4852, 86288, 78998, 496 #### [facility] [address], [address] [place] [address] Wrister: Cornel Monroe MD SED RATE BY MODIFIED WESTERG RENon 05-31-2025 SED RATE BY MODIFIED WESTERGREN 2 mm/h Normal < OR = 30 [facility] Comment on above: Performed By: #### 3 7092 #### [facility] [address] [facility] [place], [place] Wrister: Steven Sharpe M.D.,PhD #### 17495, 374, 58024, 4420, 809, 6399, 4418, %37191, 7065, 58686 #### [facility] of [place] [address] Wrister: Cornel Monroe MD TSH W/REFLEX TO FT4on 2024 TSH W/REFLEX TO FT4 0.40 mIU/L Normal 0.40-4.50 [facility] Comment on above: Performed By: #### 1 4852, 47362, 20899, 496 #### [facility] of [place] [address] Wrister: Cornel Monroe MD VITAMIN B12/FOLATE, [facility] Cobalamin (Vitamin B12) [Mass/Vol] 379 pg/mL Normal 200-1100 [facility] Comment on above: Result Comment: Please Note: Although the reference range for vitamin B12 is 200-1100 pg/mL, it has been reported that between 5 and 10% of patients with values between 200 and 400 pg/mL may experience neuropsychiatric and hematologic abnormalities due to occult B12 deficiency; less than 1% of patients with values above 400 pg/mL will have symptoms. Performed By: #### 1 4852, 88072, 28162, 496 #### [facility] [address], [address] [place] [address] Wrister: Cornel Monroe MD Folate [Mass/Vol] 8.4 ng/mL Normal [facility] Comment on above: Result Comment: Refe rence Range Low: <3.4 Borderline: 3.4-5.4 Normal: >5.4 Performed By: #### 1 4852, 72170, 28516, 496 #### [facility] of [address], [address] [place] [address] Wrister: Cornel Monroe MD COMPREHENSIVE METABOLIC PANE L W/ANION GAPon 05-26-2025 Albumin [Mass/Vol] 4.2 g/dL Normal 3.6-5.1 [facility] Comment on above: Performed By: #### 1 4852, 30702, 87637, 496 #### [facility] of [address], [address] [place] [address] Wrister: Cornel Monroe MD ALP [Catalytic activity/Vol] 71 U/L Normal 37-153 [facility] Comment on above: Performed By: #### 1 4852, 63963, 54015, 496 #### [facility] of [address], [address] [place] [address] Wrister: Cornel Monroe MD ALT [Catalytic activity/Vol] 9 U/L Normal 6-29 [facility] Comment on above: Performed By: #### 1 4852, 72429, 56210, 496 #### [facility] of [address], [address] [place] [address] Wrister: Cornel Monroe MD AST [Catalytic activity/Vol] 13 U/L Normal 10-35 [facility] Comment on above: Performed By: #### 1 4852, 54135, 60737, 496 #### [facility] of [address], [address] [place] [address] Wrister: Cornel Monroe MD Bilirubin [Mass/Vol] 0.5 mg/dL Normal 0.2-1.2 [facility] Comment on above: Performed By: #### 1 4852, 24266, 88053, 496 #### [facility] of [place] [address] Wrister: Cornel Monroe MD Calcium [Mass/Vol] 9.0 mg/dL Normal 8.6-10.4 [facility] Comment on above: Performed By: #### 1 4852, 56045, 19961, 496 #### [facility] [place] [address] Wrister: Cornel Monroe MD Chloride [Moles/Vol] 99 mmol/L Normal 98-110 [facility] Comment on above: Performed By: #### 1 4852, 17651, 95729, 496 #### [facility] [place] [address] Wrister: Cornel Monroe MD CO2 [Moles/Vol] 33 mmol/L High 20-32 [facility] Comment on above: Performed By: #### 1 4852, 01435, 16822, 496 #### [facility] [place] [address] Wrister: Cornel Monroe MD Creatinine [Mass/Vol] 0.89 mg/dL Normal 0.60-1.[address] [facility] [address] [facility] Comment on above: Performed By: #### 1 4852, 94984, 69409, 496 #### [facility] of [place] [address] Wrister: Cornel Monroe MD ELECTROLYTE BALANCE 9 mmol/L (calc) Normal 7-17 [facility] Comment on above: Performed By: #### 1 4852, 73053, 67704, 496 #### [facility] of [place] [address] Wrister: Cornel Monroe MD GFR/1.73 sq M.predicted among non-blacks MDRD (S/P/Bld) [Vol rate/Area] 68 mL/min/{1.73_m2} Normal > OR = 60 [facility] Comment on above: Performed By: #### 1 4852, 80951, 23414, 496 #### [facility] of [address], [address] [place] [address] Wrister: Cornel Monroe MD Glucose [Mass/Vol] 91 mg/dL Normal 65-139 [facility] Comment on above: Result Comment: Non-fasting reference interval Performed By: #### 1 4852, 16111, 18549, 496 #### [facility] [place] [address] Wrister: Cornel Monroe MD Potassium [Moles/Vol] 3.3 mmol/L Low 3.5-5.[address] [facility] [address] [facility] Comment on above: Performed By: #### 1 4852, 74715, 15854, 496 #### [facility] of [address], [address] [place] [address] Wrister: Cornel Monroe MD Protein [Mass/Vol] 6.9 g/dL Normal 6.1-8.1 [facility] Comment on above: Performed By: #### 1 4852, 66444, 09118, 496 #### [facility] [place] [address] Wrister: Cornel Monroe MD Sodium [Moles/Vol] 141 mmol/L Normal 135-146 [facility] Comment on above: Performed By: #### 1 4852, 80820, 57710, 496 #### [facility] [place] [address] Wrister: Cornel Monroe MD Urea nitrogen [Mass/Vol] 12 mg/dL Normal 7-25 [facility] Comment on above: Performed By: #### 1 4852, 57121, 09376, 496 #### [facility] of [place] [address] [place] [address] Wrister: Cornel Monroe MD HEMOGLOBIN A1con 05-26-2025 HbA1c (Bld) [Mass fraction] 5.9 % High <5.7 [facility] Comment on above: Result Comment: For someone without known diabetes, a hemoglobin A1c value between 5.7% and 6.4% is consistent with prediabetes and should be confirmed with a follow-up test. For someone with known diabetes, a value <7% indicates that their diabetes is well controlled. A1c targets should be individualized based on duration of diabetes, age, comorbid conditions, and other considerations. This assay result is consistent with an increased risk of diabetes. Currently, no consensus exists regarding use of hemoglobin A1c for diagnosis of diabetes for children. Performed By: #### 1 7302, 71035, 53070, 496 #### [facility] [place] [address] Wrister: Cornel Monroe MD LIPID PANEL WITH REFLEX TO D IRECT LDLon 05-26-2025 Cholesterol [Mass/Vol] 165 mg/dL Normal <200 [facility] Comment on above: Order Comment: FASTI NG:NO FASTING: NO Performed By: #### 1 7462, 02914, 08209, 496 #### [facility] [place] [address] Wrister: Cornel Monroe MD Cholesterol in HDL [Mass/Vol] 66 mg/dL Normal > OR = 50 [facility] Comment on above: Order Comment: FASTI NG:NO FASTING: NO Performed By: #### 1 8892, 97866, 56418, 496 #### [facility] [place] [address] Wrister: Cornel Monroe MD Cholesterol in LDL [Mass/Vol] 80 mg/dL Normal [facility] Comment on above: Order Comment: FASTI NG:NO FASTING: NO Result Comment: Refe rence range: <100 Desirable range <100 mg/dL for primary prevention; <70 mg/dL for patients with CHD or diabetic patients with > or = 2 CHD risk factors. LDL-C is now calculated using the Tomasz-Dutton calculation, which is a validated novel method providing better accuracy than the Friedewald equation in the estimation of LDL-C. Tomasz SS et al. FLOWER. 2013;310(19): 8761-5882 (http://education.MoboTap.Skyn [place]/faq/AEZ993) Performed By: #### 1 4852, 84357, 00587, 496 #### [facility] [place] [address] Wrister: Cornel Monroe MD Cholesterol.total/Randa sterol in HDL [Mass ratio] 2.5 {ratio} Normal <5.0 [facility] Comment on above: Order Comment: FASTI NG:NO FASTING: NO Performed By: #### 1 4852, 07906, 06180, 496 #### [facility] [address], [address] [place] [address] Wrister: Cornel Monroe MD NON HDL CHOLESTEROL 99 mg/dL (calc) Normal <130 [facility] Comment on above: Order Comment: FASTI NG:NO FASTING: NO Result Comment: For patients with diabetes plus 1 major ASCVD risk factor, treating to a non-HDL-C goal of <100 mg/dL (LDL-C of <70 mg/dL) is considered a therapeutic option. Performed By: #### 1 4852, 58364, 06223, 496 #### [facility] [place] [address] Wrister: Cornel Monroe MD Triglyceride [Mass/Vol] 106 mg/dL Normal <150 [facility] Comment on above: Order Comment: FASTI NG:NO FASTING: NO Performed By: #### 1 4852, 23846, 40138, 496 #### [facility] [place] [address] Wrister: Cornel Monroe MD TSH W/REFLEX TO FT4on 2024 TSH W/REFLEX TO FT4 0.40 mIU/L Normal 0.40-4.50 [facility] Comment on above: Performed By: #### 1 4852, 22604, 15539, 162 #### [facility] [address] [facility], [address] [place] [address] Wrister: Cornel Monroe MD US.doppler Lower extremity v franco hui 05-26-[address] [address] ext-4422, Vascular Lab Report VASC US LOWER EXTREMITY VENOUS DUPLEX RIGHT Patient Name: LOLA DREW Reading Physician: [id number] Jacob MD, OMAR Study Date: 05/26/2025 Ordering Provider: [id number] SARA ALVAREZ MRN/PID: [id number] Fellow: Technologist: Ugo French Beau Date of /Age: 8 1950 / 74 years Technologist 2: Gender: F Admission Status: Outpatient Location Performed: [facility] Diagnosis/ICD: Pain in right lower leg-M79.661 CPT Codes: 05376 Peripheral venous duplex scan for DVT Limited Pertinent History: Leg pain. CONCLUSIONS: Right Lower Venous: No evidence of acute deep vein thrombus visualized in the right lower extremity. Additional Findings; Cystic Structure noted in the popliteal fossa measuring 2.4 x 1.8 x 1.0 cm. Left Lower Venous: The left common femoral vein demonstrates normal spontaneous and respirophasic flow. Imaging & Doppler Findings: Right Compressible Thrombus Flow Distal External Iliac Spontaneous/Phasic CFV Yes None Spontaneous/Phasic PFV Yes None FV Proximal Yes None Spontaneous/Phasic FV Mid Yes None FV Distal Yes None Popliteal Yes None Spontaneous/Phasic Peroneal Yes None PTV Yes None Left Flow CFV Spontaneous/Phasic [id number] Hilda Jacob MD, OMAR Final Hilda Hdez M D - 05/26/[address] [address] ext-[phone], Vascular Lab Report VASC US LOWER EXTREMITY VENOUS DUPLEX RIGHT Patient Name: LOLA DREW Reading Physician: [id number] Hilda Jacob MD, OMAR Study Date: 05/26/2025 Ordering Provider: [id number] SARA ALVAREZ MRN/PID: [id number] Fellow: Technologist: Ugo Ermelindajoie RVT Date of /Age: 8 1950 / 74 years Technologist 2: Gender: F Admission Status: Outpatient Location Performed: [facility] Diagnosis/ICD: Pain in right lower leg-M79.661 CPT Codes: 05455 Peripheral venous duplex scan for DVT Limited Pertinent History: Leg pain. CONCLUSIONS: Right Lower Venous: No evidence of acute deep vein thrombus visualized in the right lower extremity. Additional Findings; Cystic Structure noted in the popliteal fossa measuring 2.4 x 1.8 x 1.0 cm. Left Lower Venous: The left common femoral vein demonstrates normal spontaneous and respirophasic flow. Imaging & Doppler Findings: Right Compressible Thrombus Flow Distal External Iliac Spontaneous/Phasic CFV Yes None Spontaneous/Phasic PFV Yes None FV Proximal Yes None Spontaneous/Phasic FV Mid Yes None FV Distal Yes None Popliteal Yes None Spontaneous/Phasic Peroneal Yes None PTV Yes None Left Flow CFV Spontaneous/Phasic [id number] Hilda Jacob MD, OMAR Final [facility] Work Phone: Radiology Study observation (narrative) [facility] Work Phone: US.doppler Lower extremity v ein - rightOrdered By: Hilda Jacob on 05-26-2025 [facility] Work Phone: VASC US LOWER EXTREMITY VENO US DUPLEX RIGHTon 05-26-2025 VASC US LOWER EXTREMITY [place]EN[place] [address] ext-[phone], Vascular Lab Report VASC US LOWER EXTREMITY VENOUS DUPLEX RIGHT Patient Name: LOLA DREW Reading Physician: [id number] Hilda Jacob MD, OMAR Study Date: 05/26/2025 Ordering Provider: [id number] SARA Simona SHAHEF MRN/PID: [id number] Fellow: Technologist: Ugo French RVT Date of /Age: 8 1950 / 74 years Technologist 2: Gender: F Admission Status: Outpatient Location Performed: [facility] Diagnosis/ICD: Pain in right lower leg-M79.661 CPT Codes: 70224 Peripheral venous duplex scan for DVT Limited Pertinent History: Leg pain. CONCLUSIONS: Right Lower Venous: No evidence of acute deep vein thrombus visualized in the right lower extremity. Additional Findings; Cystic Structure noted in the popliteal fossa measuring 2.4 x 1.8 x 1.0 cm. Left Lower Venous: The left common femoral vein demonstrates normal spontaneous and respirophasic flow. Imaging & Doppler Findings: Right Compressible Thrombus Flow Distal External Iliac Spontaneous/Phasic CFV Yes None Spontaneous/Phasic PFV Yes None FV Proximal Yes None Spontaneous/Phasic FV Mid Yes None FV Distal Yes None Popliteal Yes None Spontaneous/Phasic Peroneal Yes None PTV Yes None Left Flow CFV Spontaneous/Phasic 30772 Hilda Jacob MD, RPVI Final Normal [facility] Allergen, Christopher 2024 A. ALTERNATA 0.35 kU/L Abnormal Class I [facility] Comment on above: Performed By: #### L 3200.1600, L5500.0300, L100.0100, M100.2400, M100.1999 #### [facility] [address] [place], [address] BERMUDA GRASS <0.10 Normal Class 0 [facility] Comment on above: Performed By: #### L 3200.1600, L5500.0300, L100.0100, M100.2400, M100.1999 #### [facility] [address] [place], [address] [place], [place] <0.10 Normal Class 0 [facility] Comment on above: Performed By: #### L 3200.1600, L5500.0300, L100.0100, M100.2400, M100.1999 #### [facility] [address] [place], [place], [id number] CAT HAIR/DANDER <0.10 Normal Class 0 [facility] Comment on above: Performed By: #### L 3200.1600, L5500.0300, L100.0100, M100.2400, M100.1999 #### [facility] [address] [place], [place], [id number] COMMENT Comment Normal . [facility] Comment on above: Result Comment: Lorna paul of Specific IgE Class Description of Class ----- < 0.10 0 Negative 0.10 - 0.31 0/I Equivocal/Low 0.32 - 0.55 I Low 0.56 - 1.40 II Moderate 1.41 - 3.90 III High 3.91 - 19.00 IV Very High 19.01 - 100.00 V Very High >100.00 Very High Performed By: #### L 3200.1600, L5500.0300, L100.0100, M100.2400, M100.1999 #### [facility] [address] [place], [place], [id number] D FARINAE MITE <0.10 Normal Class 0 [facility] Comment on above: Performed By: #### L 3200.1600, L5500.0300, L100.0100, M100.2400, M100.1999 #### [facility] [address] [place], [place], [id number] D PTERONYSSINUS <0.10 Normal Class 0 [facility] Comment on above: Performed By: #### L 3200.1600, L5500.0300, L100.0100, M100.2400, M100.2000 #### [facility] [address] [place], [address] DOG EPITHELIA <0.10 Normal Class 0 [facility] Comment on above: Performed By: #### L 3200.1600, L5500.0300, L100.0100, M100.2400, M100.2000 #### [facility] [address] [place], [address] ELM,AMER WHITE <0.10 Normal Class 0 [facility] Comment on above: Performed By: #### L 3200.1600, L5500.0300, L100.0100, M100.2400, M100.2000 #### [facility] [address] [place], [address] Mouse Urine <0.10 Normal Class 0 [facility] Comment on above: Result Comment: Perf ormed at: - [address] [id number] Visitor Information Assistant: James Luther MD, Phone: [phone] Performed By: #### L 3200.1600, L5500.0300, L100.0100, M100.2400, M100.2000 #### [facility] [address] [place], [address] OAK, WHITE <0.10 Normal Class 0 [facility] Comment on above: Performed By: #### L 3200.1600, L5500.0300, L100.0100, M100.2400, M100.2000 #### [facility] [address] [place], [address] PLANTDANIELLA,CHRISLSH <0.10 Normal Class 0 [facility] Comment on above: Performed By: #### L 3200.1600, L5500.0300, L100.0100, M100.2400, M100.2000 #### [facility] [address] [place], [address] RAGWEED SH/COM <0.10 Normal Class 0 [facility] Comment on above: Performed By: #### L 3200.1600, L5500.0300, L100.0100, M100.2400, M100.1999 #### [facility] [address] [place], [place], [id number] Immunoglobulin Harry 5 IMMUNOGLOB E QN 32 IU/mL Normal 6-495 [facility] Comment on above: Result Comment: Perf ormed at: [facility] [id number] Visitor Information Assistant: James Luther MD, Phone: [phone] Performed By: #### L 3200.1600, L5500.0300, L100.0100, M100.2400, M1.1999 #### [facility] [address] [place], [address] Respiratory Cultureon 2024 RESPC Microorganism Spec Cult #1 Ampicillin can be used for Beta-Lactamase negative isolates. Trimeth/Sulfa, Chloramphenicol, Cefotaxime, Ciprofloxacin, Amoxicillin/Clavulani c Acid, and Oral 2nd/3rd Generation Cephalosporins are effective against both Beta-Lactamase positive and Beta-Lactamase negative isolates. Haemophilus influenzae Amount Growth 2+ Beta Lactamase-Reportable Negative Staphylococcus aureus Amount Growth Rare Staphylococcus aureus: REACTION cefOXitin Susc Islt NEG Doxycycline Islt ALBINA 8 I Clindamycin Islt ALBINA R Clindamycin.induced Susc Islt POS Erythromycin Islt ALBINA >=8 R Gentamicin Islt ALBINA <=0.5 S Linezolid Islt ALBINA 2 S Moxifloxacin Islt ALBINA <=0.25 S Oxacillin Susc Islt <=0.25 S Tetracycline Islt ALBINA >=16 R TMP SMX Islt ALBINA <=10 S Vancomycin Islt ALBINA 1 S Normal [facility] Comment on above: Performed By: #### L 3200.1600, L5500.0300, L100.0100, M100.2400, M100.1999 #### [facility] [address] [place], [address] Absolute lymphocyte countOrd ered By: Padma Pérez on 05-14-2025 Lymphocytes Auto (Unsp spec) [#/Vol] 1.31 10*3/uL 0.83-4.51 [facility] Absolute neutrophil countOrd ered By: Padma Pérez on 05-14-2025 Neutrophils (Bld) [#/Vol] 4.6 10*3/uL 2.0-7.7 [facility] Automated lymphocyte count a s percentage of total leukocytesOrdered By: Padmapantera Pérez on 05-14-2025 Lymphocytes/100 WBC Auto (Unsp spec) 19.3 % 19-41 [facility] Basophil percentageOrdered B y: Padmapantera Pérez on 05-14-2025 Basophils/100 WBC (Bld) 1.0 % 0-1 [facility] CBC W/Diff, Automatedon 05-03 Absolute Lymph 1.31 X10 3/uL Normal 0.83-4.51 [facility] Comment on above: Performed By: #### L 3200.1600, L5500.0300, L100.0100, M100.2400, M100.1999 #### [facility] [address] [place], [address] Absolute Neut 4.6 X10 3/uL Normal 2.0-7.7 [facility] Comment on above: Performed By: #### L 3200.1600, L5500.0300, L100.0100, M100.2400, M100.1999 #### [facility] [address] [place], [address] Basophils/100 WBC (Bld) 1.0 % Normal 0-1 [facility] Comment on above: Performed By: #### L 3200.1600, L5500.0300, L100.0100, M100.2400, M100.2000 #### [facility] [address] [place], [address] Eosinophils/100 WBC (Bld) 2.7 % Normal 0-5 [facility] Comment on above: Performed By: #### L 3200.1600, L5500.0300, L100.0100, M100.2400, M100.2000 #### [facility] [address] [place], [address] Erythrocyte distribution width (RBC) [Ratio] 13.5 % Normal 11.6-14.6 [facility] Comment on above: Performed By: #### L 3200.1600, L5500.0300, L100.0100, M100.2400, M100.1999 #### [facility] [address] [place], [address] Hematocrit (Bld) [Volume fraction] 37.9 % Normal 37-47 [facility] Comment on above: Performed By: #### L 3200.1600, L5500.0300, L100.0100, M100.2400, M100.1999 #### [facility] [address] [place], [address] Hemoglobin (Bld) [Mass/Vol] 12.8 g/dL Normal 12.0-15.0 [facility] Comment on above: Performed By: #### L 3200.1600, L5500.0300, L100.0100, M100.2400, M100.2000 #### [facility] [address] [place], [address] IG% 0.300 Normal 0.0-0.9 [facility] Comment on above: Result Comment: IG% - Immature Granulocytes (promyelocytes, myelocytes and metamyelocytes) > 1% indicates that a LEFT SHIFT is Present. Performed By: #### L 3200.1600, L5500.0300, L100.0100, M100.2400, M100.2000 #### [facility] [address] [place], [address] Lymphocytes/100 WBC (Bld) 19.3 % Normal 19-41 [facility] Comment on above: Performed By: #### L 3200.1600, L5500.0300, L100.0100, M100.2400, M100.1999 #### [facility] [address] [place], [address] MCH (RBC) [Entitic mass] 30.0 pg Normal 27.0-32.0 [facility] Comment on above: Performed By: #### L 3200.1600, L5500.0300, L100.0100, M100.2400, M100.1999 #### [facility] [address] [place], [address] MCHC (RBC) [Mass/Vol] 33.8 g/dL Normal 32-36 [facility] Comment on above: Performed By: #### L 3200.1600, L5500.0300, L100.0100, M100.2400, M100.1999 #### [facility] [address] [place], [address] MCV (RBC) [Entitic vol] 88.8 fL Normal 81-99 [facility] Comment on above: Performed By: #### L 3200.1600, L5500.0300, L100.0100, M100.2400, M100.1999 #### [facility] [address] [place], [address] Monocytes/100 WBC (Bld) 9.0 % Normal 0-10 [facility] Comment on above: Performed By: #### L 3200.1600, L5500.0300, L100.0100, M100.2400, M100.1999 #### [facility] [address] [place], [address] Neutrophils/100 WBC (Bld) 67.7 % Normal 47-70 [facility] Comment on above: Performed By: #### L 3200.1600, L5500.0300, L100.0100, M100.2400, M100.1999 #### [facility] [address] [place], [address] Nucleated RBC (Bld) [#/Vol] 0 10*3/uL Normal 0-5 [facility] Comment on above: Performed By: #### L 3200.1600, L5500.0300, L100.0100, M100.2400, M100.2000 #### [facility] [address] [place], [address] Platelet mean volume (Bld) [Entitic vol] 11.0 fL Normal 6.2-12.0 [facility] Comment on above: Performed By: #### L 3200.1600, L5500.0300, L100.0100, M100.2400, M100.1999 #### [facility] [address] [place], [address] Platelets (Bld) [#/Vol] 208 10*3/uL Normal 150-450 [facility] Comment on above: Performed By: #### L 3200.1600, L5500.0300, L100.0100, M100.2400, M100.1999 #### [facility] [address] [place], [address] RBC (Bld) [#/Vol] 4.27 10*6/uL Normal 4.2-5.4 [facility] Comment on above: Performed By: #### L 3200.1600, L5500.0300, L100.0100, M100.2400, M100.1999 #### [facility] [address] [place], [address] RDW SD 43.8 fl Normal 35.1-43.9 [facility] Comment on above: Performed By: #### L 3200.1600, L5500.0300, L100.0100, M100.2400, M100.1999 #### [facility] [address] [place], [address] WBC (Bld) [#/Vol] 6.8 10*3/uL Normal 4.4-11.0 [facility] Comment on above: Performed By: #### L 3200.1600, L5500.0300, L100.0100, M100.2400, M100.2000 #### [facility] [address] [place], [address] Eosinophil percentageOrdered By: Padma Pérez on 05-14-2025 Eosinophils/100 WBC (Bld) 2.7 % 0-5 [facility] Erythrocyte distribution wid th ratioOrdered By: Padma Pérez on 05-14-2025 Erythrocyte distribution width (RBC) [Ratio] 13.5 % 11.6-14.6 [facility] Erythrocyte distribution wid th standard deviationOrdered By: Padma Pérez on 05-14-2025 Erythrocyte distribution width (RBC) [Ratio] 43.8 fl 35.1-43.9 [facility] Gram Stainon 05-14-2025 GS Acceptable Specimen? Yes (<25 Epithelial cells per/lpf) Gram Stain No organisms seen Normal [facility] Comment on above: Performed By: #### L 3200.1600, L5500.0300, L100.0100, M100.2400, M100.1999 #### [facility] [address] [place], [address] Gram stainOrdered By: Chalino Pérez on 05-14-2025 Microscopic observation Gram stain Nom (Unsp spec) [facility] Hematocrit Auto (Bld) [Volum e fraction]Ordered By: Padma Pérez on 05-14-2025 Hematocrit (Bld) [Volume fraction] 37.9 % 37-47 [facility] Hemoglobin measurementOrdere d By: Padma Pérez on 05-14-2025 Hemoglobin (Bld) [Mass/Vol] 12.8 g/dL 12.0-15.0 [facility] IgEOrdered By: Padma pepe on 05-14-2025 IgE 32 IU/mL 6-495 [facility] Comment on above: Performed at: [address] [id number] Director: James Luther MD, Phone: [phone] Immature granulocytes/100 WB C Auto (Bld)Ordered By: Padma Pérez on 05-14-2025 Immature granulocytes/100 WBC (Bld) 0.300 % 0.0-0.9 [facility] Comment on above: IG% - Immature Granu locytes (promyelocytes, myelocytes and metamyelocytes) > 1% indicates that a LEFT SHIFT is Present. Laboratory - Miscellaneous t estsOrdered By: Padma Pérez on 05-14-2025 Service comment (Unsp spec) [Interp] Comment . [facility] Comment on above: Levels of Specific I gE Class Description of Class ----- < 0.10 0 Negative 0.10 - 0.31 0/I Equivocal/Low 0.32 - 0.55 I Low 0.56 - 1.40 II Moderate 1.41 - 3.90 III High 3.91 - 19.00 IV Very High 19.01 - 100.00 V Very High >100.00 Very High MCV (mean corpuscular volume ) determinationOrdered By: Padma Pérez on 05-14-2025 MCV (RBC) [Entitic vol] 88.8 fL 81-99 [facility] Mean corpuscular hemoglobin (MCH) determinationOrdered By: Padma Pérez on 05-14-2025 MCH (RBC) [Entitic mass] 30.0 pg 27.0-32.0 [facility] Mean corpuscular hemoglobin concentration (MCHC) determinationOrdered By: Padma Pérez on 05-14-2025 MCHC (RBC) [Mass/Vol] 33.8 g/dL 32-36 [facility] Mean platelet volume determi nationOrdered By: Padma Pérez on 05-14-2025 Platelet mean volume (Bld) [Entitic vol] 11.0 fL 6.2-12.0 [facility] Microbial respiratory cultur eOrdered By: Padma Pérez on 05-14-2025 Microorganism identified Cx Nom (Unsp spec) Haemophilus influenzae Abnormal [facility] Microorganism identified Cx Nom (Unsp spec) Staphylococcus aureus Abnormal [facility] Monocyte percentageOrdered B y: Padma Pérez on 05-14-2025 Monocytes/100 WBC (Bld) 9.0 % 0-10 [facility] Neutrophil percentageOrdered By: Padma Pérez on 05-14-2025 Neutrophils/100 WBC (Bld) 67.7 % 47-70 [facility] Nucleated red blood cell per centageOrdered By: Padma Pérez on 05-14-2025 Nucleated RBC/100 WBC (Bld) [Ratio] 0 % 0-5 [facility] Platelet countOrdered By: Franky Pérez on 05-14-2025 Platelets (Bld) [#/Vol] 208 10*3/uL 150-450 [facility] RBC Auto (Bld) [#/Vol]Ordere d By: Padma Pérez on 05-14-2025 RBC (Bld) [#/Vol] 4.27 10*6/uL 4.2-5.4 [facility] Serum Berm[place] grass IgE anti body assay (units/volume)Ordered By: Padma Pérez on 05-14-2025 B[place] grass IgE Qn (S) <0.10 kU/L Class 0 [facility] Serum house dust mi te IgE antibody assay (units/volume)Ordered By: Padma Pérez on 05-14-2025 house dust mite IgE Qn (S) <0.10 kU/L Class 0 [facility] Serum [place] blue grass Ig E antibody assay (units/volume)Ordered By: Padma Pérez on 05-14-2025 [place] blue grass IgE Qn (S) <0.10 kU/L Class 0 [facility] Serum cat dander IgE antibod y assay (units/volume)Ordered By: Padma Pérez on 05-14-2025 Cat dander IgE Qn (S) <0.10 kU/L Class 0 [facility] Serum dog epithelium IgE ant ibody assay (units/volume)Ordered By: Padma Pérez on 05-14-2025 Dog epithelium IgE Qn (S) <0.10 kU/L Class 0 [facility] Serum white elm IgE antibody assay (units/volume)Ordered By: Padma Pérez on 05-14-2025 White Elm IgE Qn (S) <0.10 kU/L Class 0 [facility] Serum white oak IgE antibody assay (units/volume)Ordered By: Padma Pérez on 05-14-2025 Falcon IgE Qn (S) <0.10 kU/L Class 0 [facility] White blood cell (WBC) count Ordered By: Padma Pérez on 05-14-2025 WBC (Bld) [#/Vol] 6.8 10*3/uL 4.4-11.0 [facility] Pulmonary Visit Reporton Pulmonary Visit Report [facility] [address] [place] [address] OFFICE VISIT Date of Service: 05/13/25 MR#: [id number] Acct: [id number] Name: LOLA DREW Rep #: [id number] 4 : 1950 Provider: JOSE G Pérez Age/Sex: 74/F Location: [facility] [place].PMW Status: Signed Assessment and Plan Assessment and Plan (1) Asthma-COPD overlap syndrome: Status: Chronic Plan: Deteriorated. The patient has had 3 exacerbations of asthma/COPD overlap syndrome in the past 6 months. She has been on a round of azithromycin with prednisone followed by 2 rounds of doxycycline with prednisone. Unfortunately, the patient feels better for a few weeks and then symptoms returned. I am going to obtain him some lab work to see if the patient has an elevated eosinophil count, which would make her eligible for a biologic injection to control either severe asthma or newly indicated COPD. Follow-up in 1 month to discuss test results. She is on maximal traditional management with use of triple therapy Trelegy, with Singulair and fluticasone. NIOX slightly elevated today at 28, I am going to hold off on ordering prednisone. I have asked for a sputum sample for culture and sensitivity. If antibiotics are indicated I will be ordering those. (2) PND (post-nasal drip): Status: Chronic Plan: On Flonase. (3) JOHNATHAN (obstructive sleep apnea): Status: Chronic Comment: CPAP 9 cmH2O Plan: Not addressed at today's office visit. (4) Obesity: Status: Chronic Qualifiers: Obesity type: due to excess calories Obesity classification: adult class 2 (BMI 35 - 39.9) Serious obesity comorbidity presence: with serious comorbidity Body mass index: BMI 39.0-39.9 Qualified Code(s): E66.812 - Obesity, class 2; E66.01 - Morbid (severe) obesity due to excess calories; Z68.39 - Body mass index [BMI] 39.0-39.9, adult Plan: Deteriorated. The patient reports that being on steroids caused an increase in appetite and unfortunately she has experienced some weight gain from excess calorie intake. We will take this into consideration when deciding if the patient would benefit from systemic steroids or not, for example today her NIOX is slightly elevated but not to the point that I believe placing her on systemic corticosteroids would be beneficial. (5) Seasonal allergies: Status: Chronic Plan: Will perform a RAST test to reevaluate for allergic triggers. Test results to be discussed at her follow-up visit. Also looking at an IgE level and a eosinophil count. Orders: Orders NIOX Today J45.41 - Moderate persistent asthma with (acute) exacerbation Culture, Sputum Today J44.1 - Chronic obstructive pulmonary disease with (acute) exacerbation Allergen, Mini-Rast Today J30.2 - Other seasonal allergic rhinitis Immunoglobulin E Today J30.2 - Other seasonal allergic rhinitis CBC W/Diff, Automated Today J30.2 - Other seasonal allergic rhinitis PFT Complete - DLCO, Spirometry b/a bronchodilators, lung volumes 05/18/25 J44.9 - Chronic obstructive pulmonary disease, unspecified Medications: Changed From fluticasone-umeclidin -vilanter 200-62.5-25 mcg (Trelegy Ellipta) inhalation DAILY J44.9 - Chronic obstructive pulmonary disease, unspecified To fluticasone-umeclidin -vilanter 200-62.5-25 mcg (Trelegy Ellipta) 1 inh inhalation DAILY 60 ea 5RF J44.9 - Chronic obstructive pulmonary disease, unspecified Refilled albuterol sulfate 90 mcg/actuation (Ventolin HFA) 2 puffs inhalation Q6H PRN 18 grams 6RF shortness of breath or wheezing J44.9 - Chronic obstructive pulmonary disease, unspecified montelukast (Singulair) 10 mg PO QPM 30 tabs 6RF J44.9 - Chronic obstructive pulmonary disease, unspecified Discontinued guaifenesin ER Discontinued Reason: Order Completed 600 mg PO BID Plan Details Additional Comments: This note was generated with [employer] dictation software. It may contain incorrect words, spelling, and punctuation that were not noted in checking the note before signing. Follow Up: 1 Month HPI Acute Sick Chief Complaint: Recurrent exacerbations of asthma/COPD HPI Comments Details: This patient presents to the office today for an acute visit regarding recurrent exacerbation of asthma/COPD overlap syndrome complicated by obstructive sleep apnea. She is ambulatory and on room room air. The patient reports that over the past few months she has had 3 exacerbations of her asthma. She was seen by her primary care doctor and initially treated with a Z-Aleyda and a course of steroids. She felt better for couple weeks and then symptoms returned. She went back to her primary care doctor's office and was treated with doxycycline and prednisone again. Symptoms improved for a couple weeks and returned a third time. She was seen once again by her primary care doctor and treated with a second (more content not included)... Normal [facility] POC Covid-19, Molecularon SARS-CoV-2 (COVID-19) RdRp gene VERA+probe Ql (Resp) Not detected Not Detected [facility] POC Influenza A/B, Molecular on 03-10-2025 FLUAV RNA VERA+probe Ql (Unsp spec) Negative Negative [facility] FLUBV RNA VERA+probe Ql (Unsp spec) Negative Negative [facility] SARS-CoV-2 (COVID-19) RdRp g marilee VERA+probe Ql (Resp)on 03-10-2025 [facility] DUPLEX VENOUS LEG RIGHTon 02-14-2025 DUPLEX VENOUS LEG RIGHT Patient Info Name: LOLA DREW Age: 74 years : 1950 Gender: Female Exam Date: 02/14/2025 12:42 PM 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 Helper: Pooja Clemens RDMS, RVT Referring Physician: ROGELIO PANDA ; Indications i82.451 - - DVT right peroneal vein Procedure Description 62290 Duplex examination using B-mode, color and spectral [...] Vilma Samayoa MD on 02/14/2025 01:17 PM Normal [facility] US DUPLEX VENOUS LEG RIGHT Patient Info Name: LOLA DREW Age: 74 years : 1950 Gender: Female Exam Date: 02/14/2025 12:42 PM 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 [address] [place] [address]. [address] [place] [address] OFFICE VISIT Date of Service: 01/11/25 MR#: [id number] Acct: [id number] Name: LOLA DREW Rep #: [id number] 4 : 1950 Provider: JOSE G Pérez Age/Sex: 74/F Location: [facility] [place].PMW Status: Signed Assessment and Plan Assessment and [...] since then. She has a greater than [id number]-gusq smoking history. She has been successful at [...] Chief Complaint: Shortness of breath on exertion Transfer Controller Required: No DME Vendor: [facility] Accompanied by: Self Is patient in [...] mEq 20 (more content not included)... Normal [facility] XR CHEST AP/PA AND LATon XR CHEST [...] Encounter Type: Initial Additional signs and symptoms: [facility] ORDERING SYSTEM PROVIDED DIAGNOSIS CODES: J44.1 COPD with acute exacerbation (HCC) COMPARISON: 10/19/2024. FINDINGS: Two-view chest x-ray. No pneumothorax, pleural effusion or focal airspace consolidation. Heart is normal in size. There are multilevel degenerative changes of the thoracic spine. IMPRESSION: No focal airspace disease. [employer] Workstation ID: [id number] Dictated by: ANGELO CHRISTOPHER on FriOct 28, 2024 12:13:17 PM EST Transcribed by: GRETA HANSON on FriOct 28, 2024 12:38:52 PM EST Finalized by: ANGELO CHRISTOPHER on FriOct 28, 2024 5:09:[address] [facility] Comment on above: Order Comment: Injur y/Trauma or Illness?:Illness/Other How long have you had these symptoms (acute/chronic)?:Acute Reason for exam?:COPD with acute exacerbation-pt has had cough for a while now and causes left upper chest pain with some sob History of cancer?:no Surgeries, chemotherapy, or radiation?:appendix, tonsils Type of Exam?:Initial Additional signs and symptoms?:[facility] BASIC METABOLIC PANELon 10-03 Anion gap [Moles/Vol] 13 mmol/L Normal 10-20 [facility] Comment on above: Order Comment: [facility] has implemented the eGFR calculation approach that does not have a coefficient for race that conforms to the NKF-ASN Task Force Recommendations. Performed By: #### L [id number] #### [facility] [address] [place], [place] [address] Davian Unger M.D. [id number] Calcium [Mass/Vol] 9.2 mg/dL Normal 8.4-10.2 [facility] Comment on above: Order Comment: [facility] has implemented the eGFR calculation approach that does not have a coefficient for race that conforms to the NKF-ASN Task Force Recommendations. Performed By: #### L [id number] #### LAB [address] [place], [place] [address] Davian Unger M.D. [id number] Chloride [Moles/Vol] 103 mmol/L Normal 98-108 [facility] [place] Comment on above: Order Comment: [facility] has implemented the eGFR calculation approach that does not have a coefficient for race that conforms to the NKF-ASN Task Force Recommendations. Performed By: #### L [id number] #### [facility] [address] [place], [place] [address] Davian Unger M.D. [id number] Creatinine [Mass/Vol] 0.99 mg/dL Normal 0.60-1.10 [facility] Comment on above: Order Comment: [facility] has implemented the eGFR calculation approach that does not have a coefficient for race that conforms to the NKF-ASN Task Force Recommendations. Performed By: #### L [id number] #### LAB [address] [place] [id number] Davian Unger M.D. [id number] EGFR 60 mL/min/1.73 m2 Normal >=60 [facility] Comment on above: Order Comment: [facility] has implemented the eGFR calculation approach that does not have a coefficient for race that conforms to the NKF-ASN Task Force Recommendations. Result Comment: Hayde mated GFR was calculated using the 2020 CKD-EPI creatinine equation. Performed By: #### L [id number] #### [facility] [address] [place] [id number] Davian Unger M.D. [id number] Glucose [Mass/Vol] 109 mg/dL High 65-99 [facility] Comment on above: Order Comment: [facility] has implemented the eGFR calculation approach that does not have a coefficient for race that conforms to the NKF-ASN Task Force Recommendations. Performed By: #### L [id number] #### [facility] [address] [place] [id number] Davian Unger M.D. [id number] HCO3 (Bld) [Moles/Vol] 27 mmol/L Normal 21-32 [facility] Comment on above: Order Comment: [facility] has implemented the eGFR calculation approach that does not have a coefficient for race that conforms to the NKF-ASN Task Force Recommendations. Performed By: #### L [id number] #### [facility] [address] [place] [id number] Davian Unger M.D. [id number] Potassium [Moles/Vol] 3.8 mmol/L Normal 3.5-5.1 [facility] Comment on above: Order Comment: [facility] has implemented the eGFR calculation approach that does not have a coefficient for race that conforms to the NKF-ASN Task Force Recommendations. Performed By: #### L [id number] #### [facility] [address] [place] [address] Davian Unger M.D. [id number] Sodium [Moles/Vol] 139 mmol/L Normal 135-145 [facility] Comment on above: Order Comment: [facility] has implemented the eGFR calculation approach that does not have a coefficient for race that conforms to the NKF-ASN Task Force Recommendations. Performed By: #### L [id number] #### [facility] [address] [place] [address] Davian Unger M.D. [id number] Urea nitrogen [Mass/Vol] 20 mg/dL Normal 8-25 [facility] Comment on above: Order Comment: [facility] has implemented the eGFR calculation approach that does not have a coefficient for race that conforms to the NKF-ASN Task Force Recommendations. Performed By: #### L [id number] #### [facility] [address] [place] [address] Davian Unger M.D. [id number] Urea nitrogen/Creatinine [Mass ratio] 20.2 mg/mg High 10.0-20.0 [facility] Comment on above: Order Comment: [facility] has implemented the eGFR calculation approach that does not have a coefficient for race that conforms to the NKF-ASN Task Force Recommendations. Performed By: #### L [id number] #### LAB [address] [place], [place] [address] Davian Unger M.D. [id number] Basic metabolic 2000 panelon 10-20-2024 Anion gap [Moles/Vol] 13 mmol/L 10 - 2 0 mmol/L [facility] Calcium [Mass/Vol] 9.2 mg/dL 8.4 - 10. 2 mg/dL [facility] Chloride [Moles/Vol] 103 mmol/L 98 - 10 8 mmol/L [facility] Creatinine [Mass/Vol] 0.99 mg/dL 0.60 - 1.10 mg/dL [facility] GFR/1.73 sq M.predicted CKD-EPI (S/P/Bld) [Vol rate/Area] 60 - PINF [facility] Comment on above: Estimated GFR was ca lculated using the 2020 CKD-EPI creatinine equation. Glucose [Mass/Vol] 109 mg/dL High 65 - 99 mg/dL [facility] HCO3 [Moles/Vol] 27 mmol/L 21 - 32 mmol/L [facility] Interpretation and review of laboratory results Abnormal [facility] Potassium [Moles/Vol] 3.8 mmol/L 3.5 - 5.1 mmol/L [facility] Sodium [Moles/Vol] 139 mmol/L 135 - 145 mmol/L [facility] Urea nitrogen [Mass/Vol] 20 mg/dL 8 - 25 mg/dL [facility] Urea nitrogen/Creatinine [Mass ratio] 20.2 mg/mg High 10.0 - 20.0 [facility] has implemented the eGFR calculation approach that does not have a coefficient for race that conforms to the NKF-ASN Task Force Recommendations. [facility] CBCon 10-20-2024 AUTO NRBC 0.0 % Normal [facility] Comment on above: Performed By: #### L [id number] #### LAB [address] [place], [place] [address] Davian Unger M.D. [id number] AUTO NRBC ABS COUNT 0.00 K/mcL Normal 0.00-0.00 [facility] Comment on above: Performed By: #### L [id number] #### LAB [address] [place] [address] Davian Unger M.D. [id number] Erythrocyte distribution width (RBC) [Ratio] 14.2 % Normal 11.6-14.8 [facility] Comment on above: Performed By: #### L [id number] #### LAB [address] [place] [address] Davian Unger M.D. [id number] Hematocrit (Bld) [Volume fraction] 41.0 % Normal 36.0-46.0 [facility] Comment on above: Performed By: #### L [id number] #### LAB [address] [address] Davian Unger M.D. [id number] Hemoglobin (Bld) [Mass/Vol] 13.7 g/dL Normal 12.0-16.0 [facility] Comment on above: Performed By: #### L [id number] #### LAB [address] [address] Davian Unger M.D. [id number] MCH (RBC) [Entitic mass] 30.5 pg Normal 26.0-34.0 [facility] Comment on above: Performed By: #### L [id number] #### LAB [address] [address] Davian Unger M.D. [id number] MCV (RBC) [Entitic vol] 91.3 fL Normal 80.0-100.0 [facility] Comment on above: Performed By: #### L [id number] #### [facility] LAB [address] [address] Davian Unger M.D. [id number] MEAN CORPUSCULAR HEMOGLOBIN CONC 33.4 g/dL Normal 31.0-37.0 [facility] Comment on above: Performed By: #### L [id number] #### MH LAB [address] [address] Davian Unger M.D. [id number] Platelet mean volume (Bld) [Entitic vol] 10.9 fL Normal 9.4-12.4 [facility] Comment on above: Performed By: #### L [id number] #### LAB [address] [address] Davian Unger M.D. [id number] Platelets (Bld) [#/Vol] 188 10*3/uL Normal 150-400 [facility] Comment on above: Performed By: #### L [id number] #### LAB [address] [address] Davian Unger M.D. [id number] RBC (Bld) [#/Vol] 4.49 10*6/uL Normal 4.00-5.20 [facility] Comment on above: Performed By: #### L [id number] #### LAB [address] [address] Davian Unger M.D. [id number] WBC (Bld) [#/Vol] 5.34 10*3/uL Normal 4.50-11.00 [facility] Comment on above: Performed By: #### L [id number] #### LAB [address] [address] Davian Unger M.D. [id number] CBC panel Auto (Bld)on 10-20 Erythrocyte distribution width (RBC) [Entitic vol] 14.2 % 11.6 - 14.8 % [facility] Hematocrit (Bld) [Volume fraction] 41 % 36.0 - 46.0 % [facility] Hemoglobin (Bld) [Mass/Vol] 13.7 g/dL 12.0 - 16.0 g/dL [facility] MCH (RBC) [Entitic mass] 30.5 pg 26.0 - 34.0 pg [facility] MCHC (RBC) [Mass/Vol] 33.4 g/dL 31.0 - 37.0 g/dL [facility] MCV (RBC) [Entitic vol] 91.3 fL 80.0 - 100.0 fL [facility] Nucleated RBC (Bld) [#/Vol] 0 10*3/uL [facility] Nucleated RBC/100 WBC (Bld) [Ratio] 0 % [facility] Platelet mean volume (Bld) [Entitic vol] 10.9 fL 9.4 - 12.4 fL [facility] Platelets (Bld) [#/Vol] 188 10*3/uL [facility] RBC (Bld) [#/Vol] 4.49 10*6/uL [facility] WBC (Bld) [#/Vol] 5.34 10*3/uL [facility] Heart (Credit Risk Officer jane pino)on 10-20-2024 1. Mild, nonobstructive coronary disease. 2. The [...] see separate radiology report for noncardiac findings [facility] Coronary Computed Angiography Report Patient Name: Lola Drew Age: 74 y.o. Requesting Physician: Interpreting Credit Risk Officer: Polly Santillan MD Primary Care Physician: Sara [...] Image Quality: Good, No significant artifacts. Scanner: [employer] Revolution DLP 205 mGy 110 Isovue-370. 0.8mg [...] Left atrium: Left atrial size is Normal ZENOBAI is free from any filling defect. Left [...] mild calcification of the descending thoracic aorta [facility] Radiology Study observation (narrative) [facility] CCTA Heart (Credit Risk Officer jane pino)Ordered By: Polly Santillan on 10-20-2024 [facility] Work Phone: CT CCTA HEART (CREDIT CARD ASSOCIATE READ)on 10-20-2024 CT [facility]A HEART (CREDIT CARD ASSOCIATE READ) Coronary Computed Angiography Report Patient Name: Lola Drew Age: 74 y.o. Requesting Physician: Interpreting Credit Risk Officer: Polly Santillan MD Primary Care Physician: Sara [...] Image Quality: Good, No significant artifacts. Scanner: [employer] Revolution DLP 205 mGy 110 Isovue-370. 0.8mg [...] FriOct 20, 2024 12:01:47 PM EST Normal [facility] Comment on above: Order Comment: NPO s [...] score and CTA coronary protocol were utilized. Credit Risk Officer will interpret the CT calcium score and [...] the bronchi. Hepatic steatosis. Small hiatal hernia. ST/Pump!e Workstation ID: [id number] Dictated by: ANGELO CHRISTOPHER on FriOct 20, 2024 12:53:06 PM EST Transcribed by: ROLANDO SHEFFIELD on FriOct 20, 2024 1:42:03 PM EST Finalized by: ANGELO CHRISTOPHER on FriOct 20, 2024 10:48:57 PM EST Normal [facility] Comment on above: Order Comment: Thera peutic [...] Date: 10/20/2024 7:43 AM Patient Status: Inpatient Billing Department Supervisor: Kei Salgado RCDS Exam Type: ECHOCARDIOGRAM COMPLETE W CONTRAST Study Info Indications - Chest pain R07.9 - Chest pain, unspecified Referring Physician: LIZET Michael; [id number] BMI: 40.34 kg/m2 Summary 1. Limited image [...] of 1.6 cm/m2. Left Ventricular Outflow Tract ------- Name Value Normal ------- LVOT 2D ------- LVOT Diameter 1.7 cm LVOT Doppler ------- LVOT Peak Velocity 1.3 m/s LVOT Peak Gradient 7 mmHg LVOT Mean Gradient 3 mmHg LVOT VTI 31 cm LVOT VTI/AV VTI Ratio 1.3 LVOT Stroke Volume 70 ml LVOT Stroke Index 31.27 ml/m2 Pulmonic Valve ------- Name Value Normal ------- RVOT Doppler ------- RVOT Peak Velocity 83 cm/s RVOT Peak Gradient 1 mmHg RVOT Mean Gradient 1 mmHg RVOT VTI 24 cm Mitral Valve ------- Name Value Normal ------- MV Doppler ------- MV Peak Velocity 0.73 m/s MV Peak Gradient 3 mmHg MV Mean Gradient 1 mmHg MV VTI 27 cm MV Decel Pepin 118 cm/s2 MV PHT 62 ms MV Area (PHT) 3.5 cm2 4.0-5.0 MV Area (Cont Eq VTI) 2.6 cm2 MV Area Index (Cont Eq VTI) 1.15 cm2/m2 MV DVI 0.87 MV Diastolic Function ------- MV E Peak Velocity 0.59 m/s MV (more content not included)... Normal [facility] EKG 12-leadon 10-20-2024 Atrial Rate 57 BPM [facility] P [place] 59 degrees [facility] P-R Interval 154 ms [facility] Q-T Interval 446 ms [facility] QRS Duration 94 ms [facility] QTC Calculation (Bezet) 434 ms [facility] [place] 15 degrees [facility] T [place] 60 degrees [facility] Ventricular Rate 57 BPM [facility] Sinus bradycardia Otherwise normal ECG ECG Cart Interpretation see physician note for interpretation. Confirmed by Princess Nathan ([id number]) on 10/20/2024 10:32:56 AM [facility] Echocardiogram complete w co ntraston 10-20-2024 Aortic valve area 2.71832 cm [facility] AV mean gradient 3 mmHg [facility] AV peak gradient 6.9696 mmHg [facility] Patient Info Name: LOLA DREW Age: 74 years : 1950 Gender: Female Ht: 163 cm Wt: 107 kg BSA: 2.25 m2 HR: 52 bpm BP: 125 / 71 mmHg Heart Rhythm: Bradycardia Technical Quality: Fair Exam Date: 10/20/2024 7:43 AM Patient Status: Inpatient Billing Department Supervisor: Kei Salgado RCDS Exam Type: ECHOCARDIOGRAM COMPLETE W CONTRAST Study Info Indications - Chest pain R07.9 - Chest pain, unspecified Referring Physician: LIZET Michael; [id number] BMI: 40.34 kg/m2 Summary 1. Limited image [...] of 1.6 cm/m2. Left Ventricular Outflow Tract ------- Name Value Normal ------- LVOT 2D ------- LVOT Diameter 1.7 cm LVOT Doppler ------- LVOT Peak Velocity 1.3 m/s LVOT Peak Gradient 7 mmHg LVOT Mean Gradient 3 mmHg LVOT VTI 31 cm LVOT VTI/AV VTI Ratio 1.3 LVOT Stroke Volume 70 ml LVOT Stroke Index 31.27 ml/m2 Pulmonic Valve ------- Name Value Normal ------- RVOT Doppler ------- RVOT Peak Velocity 83 cm/s RVOT Peak Gradient 1 mmHg RVOT Mean Gradient 1 mmHg RVOT VTI 24 cm Mitral Valve (more content not included)... Polly Morales Abd, MD - 10/20/2024 Patient Info Name: LOLA DREW Age: 74 years : 1950 Gender: Female Ht: 163 cm Wt: 107 kg BSA: 2.25 m2 HR: 52 bpm BP: 125 / 71 mmHg Heart Rhythm: Bradycardia Technical Quality: Fair Exam Date: 10/20/2024 7:43 AM Patient Status: Inpatient Billing Department Supervisor: Kei Salgado RCDS Exam Type: ECHOCARDIOGRAM COMPLETE W CONTRAST Study Info Indications - Chest pain R07.9 - Chest pain, unspecified Referring Physician: [id number] Lewis; [id number] BMI: 40.34 kg/m2 Summary 1. Limited image [...] of 1.6 cm/m2. Left Ventricular Outflow Tract ------- Name Value Normal ------- LVOT 2D ------- LVOT Diameter 1.7 cm LVOT Doppler ------- LVOT Peak Velocity 1.3 m/s LVOT Peak Gradient 7 mmHg LVOT Mean Gradient 3 mmHg LVOT VTI 31 cm LVOT VTI/AV VTI Ratio 1.3 LVOT Stroke Volume 70 ml LVOT Stroke Index 31.27 ml/m2 Pulmonic Valve ------- Name Value Normal ------- RVOT Doppler ------- RVOT Peak Velocity 83 cm/s RVOT Peak Gradient 1 mmHg RVOT Mean Gradient 1 mmHg RVOT VTI 24 cm Mitral Valve ------- Name Value Normal ------- MV Doppler ------- MV Peak Velocity 0.73 m/s MV Peak Gradient 3 mmHg MV Mean Gradient 1 mmHg MV VTI 27 cm MV Decel Pepin 118 cm/s2 MV PHT 62 ms MV Area (PHT) 3.5 cm2 4.0-5.0 MV Area (Cont Eq VTI) 2.6 cm2 MV Area Index (Cont Eq VTI) 1.15 cm2/m2 MV DVI 0.87 MV Diastoli (more content not included)... [facility] BASIC METABOLIC PANELon 12- Anion gap [Moles/Vol] 16 mmol/L Normal 10-20 [facility] Comment on above: Order Comment: [facility] has implemented the eGFR calculation approach that does not have a coefficient for race that conforms to the NKF-ASN Task Force Recommendations. Performed By: #### L [id number] #### MH LAB [address] [address] Davian Unger M.D. [id number] Calcium [Mass/Vol] 9.5 mg/dL Normal 8.4-10.2 [facility] Comment on above: Order Comment: [facility] has implemented the eGFR calculation approach that does not have a coefficient for race that conforms to the NKF-ASN Task Force Recommendations. Performed By: #### L [id number] #### MH LAB [address] [address] Davian Unger M.D. [id number] Chloride [Moles/Vol] 99 mmol/L Normal 98-108 [facility] [place] Comment on above: Order Comment: [facility] has implemented the eGFR calculation approach that does not have a coefficient for race that conforms to the NKF-ASN Task Force Recommendations. Performed By: #### L [id number] #### MH LAB [address], [place] [address] Davian Unger M.D. [id number] Creatinine [Mass/Vol] 1.06 mg/dL Normal 0.60-1.10 [facility] Comment on above: Order Comment: [facility] has implemented the eGFR calculation approach that does not have a coefficient for race that conforms to the NKF-ASN Task Force Recommendations. Performed By: #### L [id number] #### MH LAB [address] [address] Davian Unger M.D. [id number] EGFR 55 mL/min/1.73 m2 Low >=60 [facility] Comment on above: Order Comment: [facility] has implemented the eGFR calculation approach that does not have a coefficient for race that conforms to the NKF-ASN Task Force Recommendations. Result Comment: Hayde mated GFR was calculated using the 2020 CKD-EPI creatinine equation. Performed By: #### L [id number] #### MH LAB [address] [place], [place] [address] Davian Unger M.D. [id number] Glucose [Mass/Vol] 107 mg/dL High 65-99 [facility] Comment on above: Order Comment: [facility] has implemented the eGFR calculation approach that does not have a coefficient for race that conforms to the NKF-ASN Task Force Recommendations. Performed By: #### L [id number] #### MH LAB [address] [id number] Davian Unger M.D. [id number] HCO3 (Bld) [Moles/Vol] 27 mmol/L Normal 21-32 [facility] Comment on above: Order Comment: [facility] has implemented the eGFR calculation approach that does not have a coefficient for race that conforms to the NKF-ASN Task Force Recommendations. Performed By: #### L [id number] #### MH LAB [address] [id number] Davian Unger M.D. [id number] Potassium [Moles/Vol] 3.6 mmol/L Normal 3.5-5.1 [facility] Comment on above: Order Comment: [facility] has implemented the eGFR calculation approach that does not have a coefficient for race that conforms to the NKF-ASN Task Force Recommendations. Performed By: #### L [id number] #### MH LAB [address] [address] Davian Unger M.D. [id number] Sodium [Moles/Vol] 138 mmol/L Normal 135-145 [facility] Comment on above: Order Comment: [facility] has implemented the eGFR calculation approach that does not have a coefficient for race that conforms to the NKF-ASN Task Force Recommendations. Performed By: #### L [id number] #### MH LAB [address] [address] Davian Unger M.D. [id number] Urea nitrogen [Mass/Vol] 19 mg/dL Normal 8-25 [facility] Comment on above: Order Comment: [facility] has implemented the eGFR calculation approach that does not have a coefficient for race that conforms to the NKF-ASN Task Force Recommendations. Performed By: #### L [id number] #### MH LAB [address] [address] Davian Unger M.D. [id number] Urea nitrogen/Creatinine [Mass ratio] 17.9 mg/mg Normal 10.0-20.0 [facility] Comment on above: Order Comment: [facility] has implemented the eGFR calculation approach that does not have a coefficient for race that conforms to the NKF-ASN Task Force Recommendations. Performed By: #### L [id number] #### MH LAB [address] [address] Davian Unger M.D. [id number] Basic metabolic 2000 panelon 12-17-2024 Anion gap [Moles/Vol] 16 mmol/L 10 - 2 0 mmol/L [facility] Calcium [Mass/Vol] 9.5 mg/dL 8.4 - 10. 2 mg/dL [facility] Chloride [Moles/Vol] 99 mmol/L 98 - 10 8 mmol/L [facility] Creatinine [Mass/Vol] 1.06 mg/dL 0.60 - 1.10 mg/dL [facility] GFR/1.73 sq M.predicted CKD-EPI (S/P/Bld) [Vol rate/Area] 55 Low - PINF [facility] Comment on above: Estimated GFR was ca lculated using the 2020 CKD-EPI creatinine equation. Glucose [Mass/Vol] 107 mg/dL High 65 - 99 mg/dL [facility] HCO3 [Moles/Vol] 27 mmol/L 21 - 32 mmol/L [facility] Interpretation and review of laboratory results Abnormal [facility] Potassium [Moles/Vol] 3.6 mmol/L 3.5 - 5.1 mmol/L [facility] Sodium [Moles/Vol] 138 mmol/L 135 - 145 mmol/L [facility] Urea nitrogen [Mass/Vol] 19 mg/dL 8 - 25 mg/dL [facility] Urea nitrogen/Creatinine [Mass ratio] 17.9 mg/mg 10.0 - 20.0 [facility] has implemented the eGFR calculation approach that does not have a coefficient for race that conforms to the NKF-ASN Task Force Recommendations. [facility] CBC Auto Differentialon 10-03 Basophils (Bld) [#/Vol] 0.07 10*3/uL [facility] Basophils/100 WBC (Bld) 1.2 % [facility] Eosinophils (Bld) [#/Vol] 0.22 10*3/uL [facility] Eosinophils/100 WBC (Bld) 3.8 % [facility] Erythrocyte distribution width (RBC) [Entitic vol] 14.2 % 11.6 - 14.8 % [facility] Hematocrit (Bld) [Volume fraction] 41.4 % 36.0 - 46.0 % [facility] Hemoglobin (Bld) [Mass/Vol] 13.9 g/dL 12.0 - 16.0 g/dL [facility] Immature granulocytes (Bld) [#/Vol] 0.01 10*3/uL [facility] Immature granulocytes/100 WBC (Bld) 0.2 % [facility] Comment on above: The IG parameter is the percentage of metamyelocytes, myelocytes and promyelocytes. An immature granulocyte count (IG) of 1% or more suggests the possibility of infection, an IG count of 3% is very likely related to an infection. Lymphocytes (Bld) [#/Vol] 1.71 10*3/uL [facility] Lymphocytes/100 WBC (Bld) 29.2 % [facility] MCH (RBC) [Entitic mass] 31 pg 26.0 - 34.0 pg [facility] MCHC (RBC) [Mass/Vol] 33.6 g/dL 31.0 - 37.0 g/dL [facility] MCV (RBC) [Entitic vol] 92.2 fL 80.0 - 100.0 fL [facility] Monocytes (Bld) [#/Vol] 0.5 10*3/uL [facility] Monocytes/100 WBC (Bld) 8.5 % [facility] Neutrophils (Bld) [#/Vol] 3.34 10*3/uL [facility] Neutrophils/100 WBC (Bld) 57.1 % [facility] Nucleated RBC (Bld) [#/Vol] 0 10*3/uL [facility] Nucleated RBC/100 WBC (Bld) [Ratio] 0 % [facility] Platelet mean volume (Bld) [Entitic vol] 10.9 fL 9.4 - 12.4 fL [facility] Platelets (Bld) [#/Vol] 202 10*3/uL [facility] RBC (Bld) [#/Vol] 4.49 10*6/uL [facility] WBC (Bld) [#/Vol] 5.85 10*3/uL [facility] CBC WITH AUTO DIFFERENTIALon 10-19-2024 AUTO NRBC 0.0 % Normal [facility] Comment on above: Performed By: #### L [id number] #### [facility] [address] [place], [place] [address] Davian Unger M.D. [id number] AUTO NRBC ABS COUNT 0.00 K/mcL Normal 0.00-0.00 [facility] Comment on above: Performed By: #### L [id number] #### [facility] [address] [place], [place] [address] Davian Unger M.D. [id number] BASOPHILS ABSOLUTE COUNT 0.07 K/mcL Normal 0.00-0.30 [facility] Comment on above: Performed By: #### L [id number] #### LAB [address] [address] Davian Unger M.D. [id number] Basophils/100 WBC (Bld) 1.2 % Normal [facility] Comment on above: Performed By: #### L [id number] #### [facility] LAB [address] [address] Davian Unger M.D. [id number] Eosinophils (Bld) [#/Vol] 0.22 10*3/uL Normal 0.00-0.50 [facility] Comment on above: Performed By: #### L [id number] #### LAB [address] [address] Davian Unger M.D. [id number] Eosinophils/100 WBC (Bld) 3.8 % Normal [facility] Comment on above: Performed By: #### L [id number] #### LAB [address] [address] Davian Unger M.D. [id number] Erythrocyte distribution width (RBC) [Ratio] 14.2 % Normal 11.6-14.8 [facility] Comment on above: Performed By: #### L [id number] #### LAB [address] [address] Davian Unger M.D. [id number] Hematocrit (Bld) [Volume fraction] 41.4 % Normal 36.0-46.0 [facility] Comment on above: Performed By: #### L [id number] #### [facility] LAB [address] [address] Davian Unger M.D. [id number] Hemoglobin (Bld) [Mass/Vol] 13.9 g/dL Normal 12.0-16.0 [facility] Comment on above: Performed By: #### L [id number] #### LAB [address] [address] Davian Unger M.D. [id number] IG ABSOLUTE 0.01 K/mcL Normal 0.00-0.30 [facility] Comment on above: Performed By: #### L [id number] #### LAB [address] [address] Davian Unger M.D. [id number] IG PERCENT 0.20 % Normal [facility] Comment on above: Result Comment: The IG parameter is the percentage of metamyelocytes, myelocytes and promyelocytes. An immature granulocyte count (IG) of 1% or more suggests the possibility of infection, an IG count of 3% is very likely related to an infection. Performed By: #### L [id number] #### [facility] [address] [address] Davian Unger M.D. [id number] Lymphocytes (Bld) [#/Vol] 1.71 10*3/uL Normal 0.90-4.00 [facility] Comment on above: Performed By: #### L [id number] #### LAB [address] [address] Davian Unger M.D. [id number] Lymphocytes/100 WBC (Bld) 29.2 % [facility] Comment on above: Performed By: #### L [id number] #### [facility] [address] [address] Davian Unger M.D. [id number] MCH (RBC) [Entitic mass] 31.0 pg Normal 26.0-34.0 [facility] Comment on above: Performed By: #### L [id number] #### [facility] [address] [address] Davian Unger M.D. [id number] MCV (RBC) [Entitic vol] 92.2 fL Normal 80.0-100.0 [facility] Comment on above: Performed By: #### L [id number] #### LAB [address] [address] Davian Unger M.D. [id number] MEAN CORPUSCULAR HEMOGLOBIN CONC 33.6 g/dL Normal 31.0-37.0 [facility] Comment on above: Performed By: #### L [id number] #### LAB [address] [address] Davian Unger M.D. [id number] Monocytes (Bld) [#/Vol] 0.50 10*3/uL Normal 0.30-0.90 [facility] Comment on above: Performed By: #### L [id number] #### [facility] LAB [address] [address] Davian Unger M.D. [id number] Monocytes/100 WBC (Bld) 8.5 % Normal [facility] Comment on above: Performed By: #### L [id number] #### LAB [address] [address] Davian Unger M.D. [id number] NEUTROPHILS ABSOLUTE COUNT 3.34 K/mcL Normal 1.70-7.00 [facility] Comment on above: Performed By: #### L [id number] #### LAB [address] [address] Davian Unger M.D. [id number] Neutrophils/100 WBC (Bld) 57.1 % Normal [facility] Comment on above: Performed By: #### L [id number] #### LAB [address] [address] Davian Unger M.D. [id number] Platelet mean volume (Bld) [Entitic vol] 10.9 fL Normal 9.4-12.4 [facility] Comment on above: Performed By: #### L [id number] #### [facility] [address] [address] Davian Unger M.D. [id number] Platelets (Bld) [#/Vol] 202 10*3/uL Normal 150-400 [facility] Comment on above: Performed By: #### L [id number] #### LAB [address] [place] [address] Davian Unger M.D. [id number] RBC (Bld) [#/Vol] 4.49 10*6/uL Normal 4.00-5.20 [facility] Comment on above: Performed By: #### L [id number] #### [facility] [address] [place], [place] [address] Davian Unger M.D. [id number] WBC (Bld) [#/Vol] 5.85 10*3/uL Normal 4.50-11.00 [facility] Comment on above: Performed By: #### L [id number] #### [facility] [address] [place], [place] [address] Davian Unger M.D. [id number] D-DIMER, QUANTITATIVEon 10-03 D-DIMER QUANTITATIVE < Normal 0.27-0.49 [facility] [place] Comment on above: Order Comment: A D-d [...] the D-dimer alone. Performed By: #### L [id number] #### [facility] [address] [place], [place] [address] Davian Unger M.D. [id number] D-Dimeron 10-19-2024 Fibrin D-dimer FEU (PPP) [Mass/Vol] [facility] Interpretation and review of laboratory results Normal [facility] A D-dimer concentration of <0.5 micrograms per milliliter FEU is considered a low probability for pulmonary embolus (PE) and deep venous thrombosis (DVT). Results of this test should always be interpreted in conjunction with the patient's medical history,clinical presentation, and other findings. Clinical diagnosis should not be based on the results of the D-dimer alone. [facility] ED Prov Noteon 10-19-2024 ED Prov Note ED PROVIDER NOTE [facility] MEDICAL OBSERVATION NAME: Lola Drew AGE: 74 y.o. : 1950 VISIT DATE: 10/19/2024 CSN: [id number] PCP: Sara Alvarez MD Chief Complaint Patient presents with Chest Pain Patient is a 74-year-old female history of gastroesophageal reflux disease, hypertension, dyslipidemia, COPD, recently diagnosed with pulmonary embolism currently on Eliquis brought to emergency department via ambulance for evaluation of intermittent substernal chest pain radiating to her left jaw. Patient [facility] for cataract surgery today when [...] Socioeconomic History Marital status: Occupational History Employer: [employer] Tobacco Use Smoking status: Former [...] (one) spray into each nostril daily . fluticasone-umeclidin -vilanter (Trelegy Ellipta) 200-62.5-25 mcg DsDv Inhale 1 [...] . clobetasoL (TEMOVATE) 0.05 % scalp solution fluticasone-umeclidin -vilanter (Trelegy Ellipta) 200-62.5-25 mcg DsDv Inhale 1 (one) Inhalation. daily . ipratropium-albuteroL (DUO-NEB) 0.5-2.5 mg/3 ml nebulizer Take 3 mL by nebulization 3 (three) times a day . meclizine (ANTIVERT) 25 mg tablet Take 1 (one) tablet (25 mg total) by mouth 3 (three) times a day as needed for nausea . NONFORMULARY CPAP 9cm H20 (DASCO) in [facility] ondansetron (ZOFRAN-ODT) 4 MG disintegrating tablet Dissolve [...] Reactions Amoxicilli (more content not included)... Normal [facility] EKGon 10-19-2024 [facility] H AND Angel 10-19-2024 H AND P - Attestation signed by Boby Augustin MD at 10/19/2024 12:47 PM [facility] NOTE ADDENDUM I saw [...] vs stress test if troponin remains normal HMS HISTORY AND PHYSICAL -- [facility] Patient Name: Lola Drew : 1950 MR #: [id number] Admit Date: 10/19/2024 Physicians: Sara Alvarez MD (Family); No ref. provider found (Referring) Lola Drew is a 74 y.o. 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 Angina History of DVT / PE [...] house or apartment [facility] no Quality Measures DVT [...] and RV dysfunction The patient presented to [facility] today after experiencing chest pain prior to cataract removal surgery this AM at [facility]. The patient reports chest pain that start [...] Use Smoking (more content not included)... Normal [facility] INR Coag (PPP) [Relative parul e]Ordered By: Vladislav Wright on 10-19-2024 Interpretation and review of laboratory results Abnormal [facility] PT Coag (PPP) [Time] 15.2 s High [facility] During the induction phase of oral anticoagulation, the INR may not reflect the anticoagulation status of the patient. Therapeutic ranges for INR's are: Most clinical situations: INR 2.0-3.0 Mechanical Prosthetic Valve: INR 2.5-3.5 Critical: INR >5.0 [facility] No Panel Informationon 10-19 [facility] PT/INROrdered By: Vladislav graham on 10-19-2024 INR Coag (PPP) [Relative time] 1.2 {INR} High 0.8 - 1.1 [facility] PT/INRon 10-19-2024 INR Coag (PPP) [Relative time] 1.2 {INR} High 0.8-1.1 [facility] Comment on above: Order Comment: Thera peutic range for APTT's is 68 - 104 seconds Performed By: #### 4 [id number] #### LAB [address] [address] Davian Unger M.D. [id number] PT Coag (PPP) [Time] 15.2 s High 11.8-14.3 [facility] [place] Comment on above: Order Comment: Thera peutic range for APTT's is 68 - 104 seconds Performed By: #### 4 [id number] #### LAB [address] [address] Davian Unger M.D. [id number] TROPONINon 10-19-2024 TROPONIN T DELTA CHANGE INTERPRETATION No biomarker evidence of cardiac injury. Normal [facility] Comment on above: Performed By: #### L [id number] #### LAB [address] [address] Davian Unger M.D. [id number] TROPONIN T DELTA DIFFERENCE 0 ng/L Normal < = -/+ 7 change [facility] Comment on above: Performed By: #### L [id number] #### LAB [address] [address] Davian Unger M.D. [id number] TROPONIN T NG/L 8 ng/L Normal <=14 [facility] Comment on above: Performed By: #### L [id number] #### LAB [address] [address] Davian Unger M.D. [id number] BASELINE TROPONIN T NG/L 8 ng/L Normal <=14 [facility] Comment on above: Performed By: #### L [id number] #### [facility] LAB [address] [address] Davian Unger M.D. [id number] TROPONIN T INTERPRETATION Normal Normal [facility] Comment on above: Performed By: #### L [id number] #### [facility] LAB [address] [address] Davian Unger M.D. [id number] Troponin x 2 (Now and Repeat in 3 hours)on 10-19-2024 Delta Difference Troponin T 0 ng/L < = -/+ 7 change [facility] Troponin T Delta Change No biomarker evidence of cardiac injury. [facility] Troponin T 8 ng/L NINF - 14 ng/L [facility] Troponin T 8 ng/L NINF - 14 ng/L [facility] Troponin T Interpretation Normal [facility] XR CHEST PA/APon 10-19-2024 XR CHEST PA/AP [...] FriOct 19, 2024 11:00:53 AM EST Normal [facility] Comment on above: Order Comment: Injur y/Trauma or Illness?:Illness/OtherHow long have you had these symptoms (acute/chronic)?:AcuteReason for exam?:chest painHistory of cancer?:noSurgeries, chemotherapy, or radiation?:appendix, tonsilsType of Exam?:InitialAdditional signs and symptoms?:chest pain started am. Reports hx of DVTs and currently has a DVT in leg, no cardiac hx. XR Chest PA and Abdomen APon 10-19-2024 No acute cardiopulmonary process. Workstation ID: [id number] GE RIS EXAMINATION: XR CHEST PA/AP HISTORY: ORDERING SYSTEM [...] normal in size. Bony thorax is unremarkable. [facility] Eugenio Fowler MD - 10/19/2024 EXAMINATION: XR [...] No acute cardiopulmonary process. 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: Johanny Valadez RDMS (AB), RVS Referring Physician: ROGELIO PANDA ; Indications I26.99 - Other pulmonary embolism without acute cor pulmonale - right peroneal DVT Procedure Description 17379 Duplex examination using B-mode, color and spectral [...] Saphenous: - Small Saphenous: - - Normal [facility] [place] DUPLEX VENOUS LEG RIGHT Patient Info Name: LOLA DREW Age: 74 years : 1950 Gender: Female Exam Date: 09/15/2024 8:48 AM 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 Helper: Johanny Valadze RDMS (AB), RVS Referring Physician: ROGELIO PANDA ; Indications I26.99 - Other pulmonary embolism without acute cor pulmonale - right peroneal DVT Procedure Description 55421 Duplex examination using B-mode, color and spectral [...] on FriSep 15, 2024 11:30:55 AM EST Normal [facility] FACTOR V (F5) LEIDEN MUTATIO N ([id number])on 08-30-2024 [place] - F5DNA INTERPRETATION See Ref Lab Comment Normal [facility] Comment on above: Result Comment: This individual DOES NOT have the factor V Leiden F5 c.1601G>A; p.[id number] (legacy numbering [id number]) variant. Although the factor V Leiden variant [...] and the DNA based F5 c.1601 G>A. p.Lgn958Nat assay may be observed in patients receiving allogenic stem cell transplants or liver transplants. This test was developed and its performance characteristics determined by [facility] in a manner consistent with CLIA requirements. This test has not been cleared or approved by the U.S. Food and Drug Administration. Performed By: #### L [id number] #### [facility] LAB [address] [address] Davian Unger M.D. [id number] [place] - F5DNA REVIEWED BY SEE BELOW [facility] Comment on above: Result Comment: RESU LT: ABBY Alegria Test Performed by: [place] [address] Visitor Information Assistant: Roxy Hall Ph.D.; CLIA# [id number] Performed By: #### L [id number] #### [facility] LAB [address] [address] Davian Unger M.D. [id number] [place] - FACTOR V LEIDEN MUTATION RESULT Negative Normal Negative [facility] Comment on above: Performed By: #### L [id number] #### [facility] LAB [address] [address] Davian Unger M.D. [id number] PROTHROMBIN (F2) MUTATION (G [id number])on 08-30-2024 [place] - PROTHROMBIN [id number] MUTATION RESULT Negative Normal Negative [facility] Comment on above: Performed By: #### L [id number] #### [facility] LAB [address] [place], [place] [address] Davian Unger M.D. [id number] [place] - PTNT INTERPRETATION See Ref Lab Comment [facility] Comment on above: Result Comment: This individual DOES NOT have the Prothrombin F2 c.*97G>A (legacy numbering [id number]) variant. Although the Prothrombin (F2 c.*97G>A) variant [...] developed and its performance characteristics determined by [facility] in a manner consistent with CLIA requirements. This test has not been cleared or approved by the U.S. Food and Drug Administration. Performed By: #### L [id number] #### MH LAB [address] [place], [place] [address] Davian Unger M.D. [id number] [facility] PTNT REVIEWED BY SEE BELOW [facility] Comment on above: Result Comment: RESU LT: ABBY Alegria Test Performed by: [facility] [place] [address] Visitor Information Assistant: Roxy Hall Ph.D.; CLIA# [id number] Performed By: #### L [id number] #### [facility] LAB [address] [place], [place] [address] Davian Unger M.D. [id number] MM SCREENING GWYN BILATERALo n 08-04-2024 MM [...] sent to the patient regarding the results. [facility], along with the National [employer] Cancer Network and the [employer] recommend annual screening mammograms for women age 40 and older. [employer] Workstation ID: [id number] Dictated by: ANGELO CHRISTOPHER on [facility] Aug 05, 2024 12:29:43 PM EDT Transcribed by: ORQUIDEA HODGES on [facility] Aug 05, 2024 1:23:26 PM EDT Finalized by: ANGELO CHRISTOPHER on [facility] Aug 05, 2024 8:58:30 PM EDT Normal [facility] ED Prov Noteon 07-30-2024 ED Prov Note ED PROVIDER NOTE [facility] NAME: Lola Drew AGE: 74 y.o. : 1950 VISIT DATE: 07/30/2024 CSN: [id number] PCP: Sara Alvarez MD No chief complaint [...] Socioeconomic History Marital status: Occupational History Employer: [employer] Tobacco Use Smoking status: [...] (one) spray into each nostril daily . fluticasone-umeclidin -vilanter (Trelegy Ellipta) 200-62.5-25 mcg DsDv Inhale 1 [...] daily. NONFORMULARY CPAP 9cm H20 (DASCO) in [facility] ondansetron (ZOFRAN-ODT) 4 MG disintegrating tablet Dissolve [...] for congestion. Respiratory: (more content not included)... [facility] CT CHEST LOW DOSE LUNG SCREE MUNA Herring 07-29-2024 CT CHEST LOW DOSE LUNG [...] Nicotine dependence, cigarettes, in remission Injury/Trauma or Illness?:Illness/Othe r How long have you had these symptoms (acute/chronic)?:Activities Leader kaden COMPARISON: CTA pulmonary arteries 07/24/[address] [...] FriAug 03, 2024 8:10:38 AM EDT Normal [facility] Comment on above: Order Comment: Thera peutic range for APTT's is 68 - 104 seconds [facility] Glucose [Mass/Vol] 154 mg/dL High 65-99 [facility] Comment on above: Performed By: #### L [id number] #### [facility] LAB [address] [place], [place] [address] Davian Unger M.D. [id number] APTTon 07-27-2024 aPTT Coag (Bld) [Time] 30 s Normal 23-34 [facility] Comment on above: Order Comment: Thera peutic range for APTT's is 68 - 104 seconds Performed By: #### 4 [id number] #### MH LAB [address] [place], [place] [address] Davian Unger M.D. [id number] BASIC METABOLIC PANELon 09- Anion gap [Moles/Vol] 15 mmol/L Normal 10-20 [facility] Comment on above: Order Comment: [facility] has implemented the eGFR calculation approach that does not have a coefficient for race that conforms to the NKF-ASN Task Force Recommendations. Performed By: #### L [id number] #### LAB [address] [place], [place] [address] Davian Unger M.D. [id number] Calcium [Mass/Vol] 9.0 mg/dL Normal 8.4-10.2 [facility] Comment on above: Order Comment: [facility] has implemented the eGFR calculation approach that does not have a coefficient for race that conforms to the NKF-ASN Task Force Recommendations. Performed By: #### L [id number] #### MH LAB [address] [place], [place] [address] Davian Unger M.D. [id number] Chloride [Moles/Vol] 102 mmol/L Normal 98-108 [facility] [place] Comment on above: Order Comment: [facility] has implemented the eGFR calculation approach that does not have a coefficient for race that conforms to the NKF-ASN Task Force Recommendations. Performed By: #### L [id number] #### LAB [address] [place], [place] [address] Davian Unger M.D. [id number] Creatinine [Mass/Vol] 1.03 mg/dL Normal 0.60-1.10 [facility] Comment on above: Order Comment: [facility] has implemented the eGFR calculation approach that does not have a coefficient for race that conforms to the NKF-ASN Task Force Recommendations. Performed By: #### L [id number] #### [facility] LAB [address] [address] Davian Unger M.D. [id number] EGFR 57 mL/min/1.73 m2 Low >=60 [facility] Comment on above: Order Comment: [facility] has implemented the eGFR calculation approach that does not have a coefficient for race that conforms to the NKF-ASN Task Force Recommendations. Result Comment: Hayde mated GFR was calculated using the 2020 CKD-EPI creatinine equation. Performed By: #### L [id number] #### [facility] LAB [address] [address] Davian Unger M.D. [id number] Glucose [Mass/Vol] 109 mg/dL High 65-99 [facility] Comment on above: Order Comment: [facility] has implemented the eGFR calculation approach that does not have a coefficient for race that conforms to the NKF-ASN Task Force Recommendations. Performed By: #### L [id number] #### [facility] LAB [address] [address] Davian Unger M.D. [id number] HCO3 (Bld) [Moles/Vol] 27 mmol/L Normal 21-32 [facility] Comment on above: Order Comment: [facility] has implemented the eGFR calculation approach that does not have a coefficient for race that conforms to the NKF-ASN Task Force Recommendations. Performed By: #### L [id number] #### MH LAB [address] [address] Davian Unger M.D. [id number] Potassium [Moles/Vol] 3.5 mmol/L Normal 3.5-5.1 [facility] Comment on above: Order Comment: [facility] has implemented the eGFR calculation approach that does not have a coefficient for race that conforms to the NKF-ASN Task Force Recommendations. Performed By: #### L [id number] #### MH LAB [address] [address] Davian Unger M.D. [id number] Sodium [Moles/Vol] 140 mmol/L Normal 135-145 [facility] Comment on above: Order Comment: [facility] has implemented the eGFR calculation approach that does not have a coefficient for race that conforms to the NKF-ASN Task Force Recommendations. Performed By: #### L [id number] #### MH LAB [address] [address] Davian Unger M.D. [id number] Urea nitrogen [Mass/Vol] 17 mg/dL Normal 8-25 [facility] Comment on above: Order Comment: [facility] has implemented the eGFR calculation approach that does not have a coefficient for race that conforms to the NKF-ASN Task Force Recommendations. Performed By: #### L [id number] #### LAB [address] [address] Davian Unger M.D. [id number] Urea nitrogen/Creatinine [Mass ratio] 16.5 mg/mg Normal 10.0-20.0 [facility] Comment on above: Order Comment: [facility] has implemented the eGFR calculation approach that does not have a coefficient for race that conforms to the NKF-ASN Task Force Recommendations. Performed By: #### L [id number] #### LAB [address] [place] [address] Davian Unger M.D. [id number] CBCon 07-27-2024 AUTO NRBC 0.0 % Normal [facility] Comment on above: Order Comment: While on heparin Performed By: #### L [id number] #### MH LAB [address] [address] Davian Unger M.D. [id number] AUTO NRBC ABS COUNT 0.00 K/mcL Normal 0.00-0.00 [facility] Comment on above: Order Comment: While on heparin Performed By: #### L [id number] #### MH LAB [address] [address] Davian Unger M.D. [id number] Erythrocyte distribution width (RBC) [Ratio] 13.7 % Normal 11.6-14.8 [facility] Comment on above: Order Comment: While on heparin Performed By: #### L [id number] #### MH LAB [address] [address] Davian Unger M.D. [id number] Hematocrit (Bld) [Volume fraction] 39.7 % Normal 36.0-46.0 [facility] Comment on above: Order Comment: While on heparin Performed By: #### L [id number] #### MH LAB [address] [address] Davian Unger M.D. [id number] Hemoglobin (Bld) [Mass/Vol] 13.0 g/dL Normal 12.0-16.0 [facility] Comment on above: Order Comment: While on heparin Performed By: #### L [id number] #### LAB [address] [address] Davian Unger M.D. [id number] MCH (RBC) [Entitic mass] 30.4 pg Normal 26.0-34.0 [facility] Comment on above: Order Comment: While on heparin Performed By: #### L [id number] #### [facility] [address] [address] Davian Unger M.D. [id number] MCV (RBC) [Entitic vol] 93.0 fL Normal 80.0-100.0 [facility] Comment on above: Order Comment: While on heparin Performed By: #### L [id number] #### LAB [address] [address] Davian Unger M.D. [id number] MEAN CORPUSCULAR HEMOGLOBIN CONC 32.7 g/dL Normal 31.0-37.0 [facility] Comment on above: Order Comment: While on heparin Performed By: #### L [id number] #### LAB [address] [place] [address] Davian Unger M.D. [id number] Platelet mean volume (Bld) [Entitic vol] 10.9 fL Normal 9.4-12.4 [facility] Comment on above: Order Comment: While on heparin Performed By: #### L [id number] #### [facility] LAB [address] [address] Davian Unger M.D. [id number] Platelets (Bld) [#/Vol] 147 10*3/uL Low 150-400 [facility] Comment on above: Order Comment: While on heparin Performed By: #### L [id number] #### [facility] LAB [address] [address] Davian Unger M.D. [id number] RBC (Bld) [#/Vol] 4.27 10*6/uL Normal 4.00-5.20 [facility] Comment on above: Order Comment: While on heparin Performed By: #### L [id number] #### LAB [address] [address] Davian Unger M.D. [id number] WBC (Bld) [#/Vol] 7.41 10*3/uL Normal 4.50-11.00 [facility] Comment on above: Order Comment: While on heparin Performed By: #### L [id number] #### [facility] [address] [address] Davian Unger M.D. [id number] PT/INRon 07-27-2024 INR Coag (PPP) [Relative time] 1.6 {INR} High 0.8-1.1 [facility] Comment on above: Order Comment: Durin g the induction phase of oral anticoagulation, the INR may not reflect the anticoagulation status of the patient. Therapeutic ranges for INR's are:Most clinical situations: INR 2.0-3.0Mechanical Prosthetic Valve: INR 2.5-3.5Critical: INR >5.0 Performed By: #### L [id number] #### LAB [address] [address] Davian Unger M.D. [id number] PT Coag (PPP) [Time] 19.0 s High 11.8-14.3 [facility] [place] Comment on above: Order Comment: Durin g the induction phase of oral anticoagulation, the INR may not reflect the anticoagulation status of the patient. Therapeutic ranges for INR's are:Most clinical situations: INR 2.0-3.0Mechanical Prosthetic Valve: INR 2.5-3.5Critical: INR >5.0 Performed By: #### L [id number] #### LAB [address] [address] Davian Unger M.D. [id number] APTT HEPARIN COVERAGEon 07-05 aPTT Coag (Bld) [Time] 79 s High 23-34 [facility] Comment on above: Order Comment: Thera peutic range for APTT's is 68 - 104 seconds Performed By: #### L [id number] #### [facility] [address] [place], [place] [address] Davian Unger M.D. [id number] aPTT Coag (Bld) [Time] 107 s High 23-34 [facility] Comment on above: Order Comment: Thera peutic range for APTT's is 68 - 104 seconds Performed By: #### L [id number] #### [facility] [address] [place], [place] [address] Davian Unger M.D. 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: Brina Turcios RVT Referring Physician: BOBY AVILES ; Indications I26.99 - Other pulmonary embolism without acute cor pulmonale R22.43 - Localized swelling, mass and lump, lower limb, bilateral Procedure Description 52895 Duplex examination using B-mode, color and spectral [...] Saphenous: - Small Saphenous: - - Normal [facility] APTT HEPARIN COVERAGEon 07-05 aPTT Coag (Bld) [Time] 79 s High [address] [place] [address] Comment on above: Order Comment: Thera peutic range for APTT's is 68 - 104 seconds Performed By: #### L [id number] #### [facility] [address] [place], [place] [address] Davian Unger M.D. [id number] aPTT Coag (Bld) [Time] 68 s High [address] [place] [address] Comment on above: Order Comment: Thera peutic range for APTT's is 68 - 104 seconds Performed By: #### 4 [id number] #### [facility] [address] [place], [place] [address] Davian Unger M.D. [id number] aPTT Coag (Bld) [Time] 171 s Off scale high [address] [place] [address] Comment on above: Order Comment: Thera peutic range for APTT's is 68 - 104 seconds Performed By: #### L [id number] #### LAB [address] [address] Davian Unger M.D. [id number] CBC WITH AUTO DIFFERENTIALon 07-25-2024 AUTO NRBC 0.0 % Normal [facility] Comment on above: Performed By: #### L [id number] #### LAB [address] [address] Davian Unger M.D. [id number] AUTO NRBC ABS COUNT 0.00 K/mcL Normal 0.00-0.00 [facility] Comment on above: Performed By: #### L [id number] #### LAB [address] [address] Davian Unger M.D. [id number] BASOPHILS ABSOLUTE COUNT 0.02 K/mcL Normal 0.00-0.30 [facility] Comment on above: Performed By: #### L [id number] #### LAB [address] [address] Davian Unger M.D. [id number] Basophils/100 WBC (Bld) 0.4 % Normal [facility] Comment on above: Performed By: #### L [id number] #### LAB [address] [place] [address] Davian Unger M.D. [id number] Eosinophils (Bld) [#/Vol] 0.02 10*3/uL Normal 0.00-0.50 [facility] Comment on above: Performed By: #### L [id number] #### LAB [address] [place] [address] Davian Unger M.D. [id number] Eosinophils/100 WBC (Bld) 0.4 % Normal [facility] Comment on above: Performed By: #### L [id number] #### LAB [address] [place] [address] Davian Unger M.D. [id number] Erythrocyte distribution width (RBC) [Ratio] 13.4 % Normal 11.6-14.8 [facility] Comment on above: Performed By: #### L [id number] #### LAB [address] [address] Davian Unegr M.D. [id number] Hematocrit (Bld) [Volume fraction] 41.0 % Normal 36.0-46.0 [facility] Comment on above: Performed By: #### L [id number] #### LAB [address] [address] Davian Unger M.D. [id number] Hemoglobin (Bld) [Mass/Vol] 13.8 g/dL Normal 12.0-16.0 [facility] Comment on above: Performed By: #### L [id number] #### LAB [address] [address] Davian Unger M.D. [id number] IG ABSOLUTE 0.02 K/mcL Normal 0.00-0.30 [facility] Comment on above: Performed By: #### L [id number] #### LAB [address] [place] [address] Davian Unger M.D. [id number] IG PERCENT 0.40 % [facility] Comment on above: Result Comment: The IG parameter is the percentage of metamyelocytes, myelocytes and promyelocytes. An immature granulocyte count (IG) of 1% or more suggests the possibility of infection, an IG count of 3% is very likely related to an infection. Performed By: #### L [id number] #### LAB [address] [address] Davian Unger M.D. [id number] Lymphocytes (Bld) [#/Vol] 0.71 10*3/uL Low 0.90-4.00 [facility] Comment on above: Performed By: #### L [id number] #### LAB [address] [place] [address] Davian Unger M.D. [id number] Lymphocytes/100 WBC (Bld) 13.8 % [facility] Comment on above: Performed By: #### L [id number] #### LAB [address] [address] Davian Unger M.D. [id number] MCH (RBC) [Entitic mass] 30.3 pg Normal 26.0-34.0 [facility] Comment on above: Performed By: #### L [id number] #### LAB [address] [address] Davian Unger M.D. [id number] MCV (RBC) [Entitic vol] 90.1 fL Normal 80.0-100.0 [facility] Comment on above: Performed By: #### L [id number] #### LAB [address] [address] Davian Unger M.D. [id number] MEAN CORPUSCULAR HEMOGLOBIN CONC 33.7 g/dL Normal 31.0-37.0 [facility] Comment on above: Performed By: #### L [id number] #### LAB [address] [address] Davian Unger M.D. [id number] Monocytes (Bld) [#/Vol] 0.06 10*3/uL Low 0.30-0.90 [facility] Comment on above: Performed By: #### L [id number] #### LAB [address] [address] Davian Unger M.D. [id number] Monocytes/100 WBC (Bld) 1.2 % Normal [facility] Comment on above: Performed By: #### L [id number] #### LAB [address] [address] Davian Unger M.D. [id number] NEUTROPHILS ABSOLUTE COUNT 4.33 K/mcL Normal 1.70-7.00 [facility] Comment on above: Performed By: #### L [id number] #### MH LAB [address] [address] Davian Unger M.D. [id number] Neutrophils/100 WBC (Bld) 83.8 % Normal [facility] Comment on above: Performed By: #### L [id number] #### MH LAB [address] [id number] Davian Unger M.D. [id number] Platelet mean volume (Bld) [Entitic vol] 10.9 fL Normal 9.4-12.4 [facility] Comment on above: Performed By: #### L [id number] #### MH LAB [address] [address] Davian Unger M.D. [id number] Platelets (Bld) [#/Vol] 151 10*3/uL Normal 150-400 [facility] Comment on above: Performed By: #### L [id number] #### MH LAB [address] [address] Davian Unger M.D. [id number] RBC (Bld) [#/Vol] 4.55 10*6/uL Normal 4.00-5.20 [facility] Comment on above: Performed By: #### L [id number] #### MH LAB [address] [address] Davian Unger M.D. [id number] WBC (Bld) [#/Vol] 5.16 10*3/uL Normal 4.50-11.00 [facility] Comment on above: Performed By: #### L [id number] #### LAB [address] [address] Davian Unger M.D. [id number] COMPREHENSIVE METABOLIC PANE [employer] 07-25-2024 Albumin [Mass/Vol] 4.1 g/dL Normal 3.2-5.2 [facility] Comment on above: Order Comment: [facility] has implemented the eGFR calculation approach that does not have a coefficient for race that conforms to the NKF-ASN Task Force Recommendations. Performed By: #### [id number] ####MH LAB [address] [address] Davian Unger M.D. [id number] ALP [Catalytic activity/Vol] 82 U/L Normal 40-150 [facility] Comment on above: Order Comment: [facility] has implemented the eGFR calculation approach that does not have a coefficient for race that conforms to the NKF-ASN Task Force Recommendations. Performed By: #### [id number] #### LAB [address] [address] Davian Unger M.D. [id number] ALT [Catalytic activity/Vol] 7 U/L Normal 0-35 U/L [facility] Comment on above: Order Comment: [facility] has implemented the eGFR calculation approach that does not have a coefficient for race that conforms to the NKF-ASN Task Force Recommendations. Performed By: #### [id number] #### LAB [address] [address] Davian Unger M.D. [id number] Anion gap [Moles/Vol] 18 mmol/L Normal 10-20 [facility] Comment on above: Order Comment: [facility] has implemented the eGFR calculation approach that does not have a coefficient for race that conforms to the NKF-ASN Task Force Recommendations. Performed By: #### 4 [id number] #### LAB [address] [address] Davian Unger M.D. [id number] AST [Catalytic activity/Vol] 17 U/L Normal 0-35 U/L [facility] Comment on above: Order Comment: [facility] has implemented the eGFR calculation approach that does not have a coefficient for race that conforms to the NKF-ASN Task Force Recommendations. Performed By: #### 4 [id number] #### LAB [address] [address] Davian Unger M.D. [id number] Bilirubin [Mass/Vol] 0.6 mg/dL Normal 0.0-1.3 [facility] [place] Comment on above: Order Comment: [facility] has implemented the eGFR calculation approach that does not have a coefficient for race that conforms to the NKF-ASN Task Force Recommendations. Performed By: #### 4 [id number] #### LAB [address] [address] Davian Unger M.D. [id number] Calcium [Mass/Vol] 9.4 mg/dL Normal 8.4-10.2 [facility] Comment on above: Order Comment: [facility] has implemented the eGFR calculation approach that does not have a coefficient for race that conforms to the NKF-ASN Task Force Recommendations. Performed By: #### 4 [id number] #### LAB [address] [place], [place] [address] Davian Unger M.D. [id number] Chloride [Moles/Vol] 102 mmol/L Normal 98-108 [facility] [place] Comment on above: Order Comment: [facility] has implemented the eGFR calculation approach that does not have a coefficient for race that conforms to the NKF-ASN Task Force Recommendations. Performed By: #### 4 [id number] #### LAB [address] [address] Davian Unger M.D. [id number] Creatinine [Mass/Vol] 0.87 mg/dL Normal 0.60-1.10 [facility] Comment on above: Order Comment: [facility] has implemented the eGFR calculation approach that does not have a coefficient for race that conforms to the NKF-ASN Task Force Recommendations. Performed By: #### 4 [id number] #### LAB [address] [address] Davian Unger M.D. [id number] EGFR 70 mL/min/1.73 m2 Normal >=60 [facility] Comment on above: Order Comment: [facility] has implemented the eGFR calculation approach that does not have a coefficient for race that conforms to the NKF-ASN Task Force Recommendations. Result Comment: Hayde mated GFR was calculated using the 2020 CKD-EPI creatinine equation. Performed By: #### 4 [id number] #### LAB [address] [id number] Davian Unger M.D. [id number] Glucose [Mass/Vol] 195 mg/dL High 65-99 [facility] Comment on above: Order Comment: [facility] has implemented the eGFR calculation approach that does not have a coefficient for race that conforms to the NKF-ASN Task Force Recommendations. Performed By: #### 4 6126 #### LAB [address] [address] Davian Unger M.D. [id number] HCO3 (Bld) [Moles/Vol] 23 mmol/L Normal 21-32 [facility] Comment on above: Order Comment: [facility] has implemented the eGFR calculation approach that does not have a coefficient for race that conforms to the NKF-ASN Task Force Recommendations. Performed By: #### 4 [id number] #### LAB [address] [address] Davian Unger M.D. [id number] Potassium [Moles/Vol] 3.6 mmol/L Normal 3.5-5.1 [facility] Comment on above: Order Comment: [facility] has implemented the eGFR calculation approach that does not have a coefficient for race that conforms to the NKF-ASN Task Force Recommendations. Performed By: #### 4 6126 #### LAB [address] [address] Davian Unger M.D. [id number] Protein [Mass/Vol] 6.9 g/dL Normal 6.0-8.0 [facility] Comment on above: Order Comment: [facility] has implemented the eGFR calculation approach that does not have a coefficient for race that conforms to the NKF-ASN Task Force Recommendations. Performed By: #### 4 6126 #### LAB [address] [address] Davian Unger M.D. [id number] Sodium [Moles/Vol] 139 mmol/L Normal 135-145 [facility] Comment on above: Order Comment: [facility] has implemented the eGFR calculation approach that does not have a coefficient for race that conforms to the NKF-ASN Task Force Recommendations. Performed By: #### 4 6126 ####MH LAB [address] [address] Davian Unger M.D. [id number] Urea nitrogen [Mass/Vol] 12 mg/dL Normal 8-25 [facility] Comment on above: Order Comment: [facility] has implemented the eGFR calculation approach that does not have a coefficient for race that conforms to the NKF-ASN Task Force Recommendations. Performed By: #### 4 6126 #### LAB [address] [place], [place] [address] Davian Unger M.D. [id number] Urea nitrogen/Creatinine [Mass ratio] 13.8 mg/mg Normal 10.0-20.0 [facility] Comment on above: Order Comment: [facility] has implemented the eGFR calculation approach that does not have a coefficient for race that conforms to the NKF-ASN Task Force Recommendations. Performed By: #### 4 [id number] #### LAB [address] [place], [place] [address] Davian Unger M.D. [id number] CONSULTon 07-25-2024 CONSULT General Cardiology Inpatient Consult Heart & Vascular [facility] 07/25/2024 Gaurav Hidalgo MD [facility] Patient: Lola Drew Date of : 1950 (74 y.o.) Referring Provider: Refer to consult order in electronic medical record PCP: Sara Alvarez MD Assessment/Plan: Acute pulmonary embolism with [...] further details. Gaurav Hidalgo MD Non-Invasive Cardiology [facility] Subjective Reason for Consultation: Possible right ventricular strain from pulmonary embolism History of Present Illness: Lola Drew is a 74 y.o. female has been short of breath and coughing and had some cold and saw a wafer mounter, they placed her on antibiotics and steroids [...] Negative. Gastrointestinal: Negative. Genitourinary: Negative. Neurological: Negative. Psychiatric/Behaviora l: Negative. Past Medical History: Diagnosis Date Asthma [...] D5W infusion 0-70 Units/kg/hr Intravenous Continuous Byron Ecsobar MD 15.2 mL/hr at 07/25/24 1217 14 [...] 2 puff (more content not included)... Normal [facility] ECHOCARDIOGRAM COMPLETE W CO NTRASTon 07-25-2024 ECHOCARDIOGRAM COMPLETE W CONTRAST Patient Info Name: LOLA DREW Age: 74 years : 1950 Gender: Female Ht: 163 cm Wt: 107 kg BSA: 2.25 m2 HR: 68 bpm BP: 103 / 75 mmHg Heart Rhythm: Sinus Rhythm Technical Quality: Poor Exam Date: 07/25/2024 10:53 AM Patient Status: Inpatient Billing Department Supervisor: Sarah Humphrey RCDS Exam Type: ECHOCARDIOGRAM COMPLETE W CONTRAST Study Info Indications R06.00 - Dyspnea, unspecified Referring Physician: BOBY AVILES ; [id number] Reason for Poor Study: poor echocardiographic windows [...] Scoring Index: 1.00 Left Ventricular Outflow Tract ------- Name Value Normal ------- LVOT 2D ------- LVOT Diameter 2.1 cm LVOT Doppler ------- LVOT Peak Velocity 1.5 m/s LVOT Peak Gradient 7 mmHg LVOT Mean Gradient 3 mmHg LVOT VTI 30 cm LVOT VTI/AV VTI Ratio 0.7 LVOT Stroke Volume 99 ml LVOT Stroke Index 44.18 ml/m2 Pulmonic Valve ------- Name Value Normal ------- RVOT Doppler ------- RVOT Peak Velocity 58 cm/s RVOT Peak Gradient 1 mmHg RVOT Mean Gradient 1 mmHg RVOT VTI 12 cm PV Doppler ------- PV Peak Velocity 1.10 m/s PV Peak Gradient 5 mmHg PV Mean Gradient 2 mmHg PV VTI 23 cm Mitral Valve ------- Name Value Normal ------- MV Doppler ------- MV Peak Velocity 0.86 m/s MV Peak Gradient 3 mmHg MV Mean Gradient 1 mmHg MV VTI 27 cm MV Decel Pepin 258 cm/s2 MV PHT 76 ms MV Area (PHT) 2.9 cm2 4.0-5.0 MV Area (Cont Eq VTI) 3.7 cm2 MV Area Index (Cont Eq VTI) 1.66 cm2/m2 MV DVI 0.89 MV Diastolic Function (more content not included)... Normal [facility] HEMOGLOBIN A1Con 07-25-2024 Glucose [Mass/Vol] 117 mg/dL High 74-114 [facility] Comment on above: Performed By: #### L [id number] #### MH LAB [address] [address] Davian Unger M.D. [id number] HbA1c (Bld) [Mass fraction] 5.7 % High 4.2-5.6 [facility] Comment on above: Performed By: #### L [id number] #### MH LAB [address] [address] Davian Unger M.D. [id number] TROPONINon 07-25-2024 TROPONIN T DELTA % NG/L -24 % Off scale low <20 % of Baseline Troponin [facility] Comment on above: Performed By: #### L [id number] #### MH LAB [address] [address] Davian Unger M.D. [id number] TROPONIN T DELTA CHANGE INTERPRETATION Probable acute injury or myocardial infarction. [facility] Comment on above: Performed By: #### L [id number] #### MH LAB [address] [address] Davian Unger M.D. [id number] TROPONIN T NG/L 31 ng/L Off scale high <=14 [facility] Comment on above: Performed By: #### L [id number] #### MH LAB [address] [address] Davian Unger M.D. [id number] BASELINE TROPONIN T NG/L 41 ng/L Off scale high <=14 [facility] Comment on above: Performed By: #### L [id number] #### MH LAB [address] [address] Davian Unger M.D. [id number] TROPONIN T INTERPRETATION Possible acute cardiac injury. [facility] Comment on above: Performed By: #### L [id number] #### MH LAB [address] [facility] [place] [place] [address] Davian Unger M.D. [id number] COVID-19, MOLECULARon 2023 SARS-CoV-2 (COVID-19) Ab IA Ql Not detected Normal Not Detected [facility] Comment on above: Result Comment: [...] ID: [id number] Dictated by: KIERAN ALTMAN on [facility] Jul 24, 2024 7:27:24 PM EDT Transcribed by: XOCHITL REYNOSO on [facility] Jul 24, 2024 7:57:59 PM EDT Finalized by: KIERAN ALTMAN on [facility] Jul 24, 2024 8:02:19 PM EDT [facility] Comment on above: Order Comment: Injur y/Trauma or Illness?:Illness/Other How long have you had these symptoms (acute/chronic)?:Acute Reason for exam?:COPD with acute exacerbation History of cancer?:no Surgeries, chemotherapy, or radiation?:appendix, tonsils Type of Exam?:Initial Additional signs and symptoms?:productive cough x 3 weeks, sob ED Prov Noteon 07-24-2024 ED Prov Note ED PROVIDER NOTE [facility] NAME: Lola Drew AGE: 74 y.o. : 1950 VISIT DATE: 07/24/2024 CSN: [id number] PCP: Sara Alvarez MD Chief Complaint Patient [...] Socioeconomic History Marital status: Occupational History Employer: [employer] Tobacco Use Smoking status: [...] (one) spray into each nostril daily . fluticasone-umeclidin -vilanter (Trelegy Ellipta) 200-62.5-25 mcg DsDv Inhale 1 [...] by mouth daily. NONFORMULARY CPAP 9cm H20 (DASMD) in [facility] ondansetron (ZOFRAN-ODT) 4 MG disintegrating tablet Dissolve [...] arthralgias and (more content not included)... Normal [facility] POC B-TYPE NATRIURETIC PEPTI DE (BNP) - Espinoza 07-24-2024 Natriuretic peptide B (Bld) [Mass/Vol] 31.3 pg/mL Normal <100 [facility] POC CBC AND DIFFERENTIALon 0 07-24-2024 BASOPHILS ABSOLUTE COUNT 0.03 K/mcL Normal 0.00-0.30 [facility] Basophils/100 WBC (Bld) 0.3 % Normal [facility] Eosinophils (Bld) [#/Vol] 0.19 10*3/uL Normal 0.00-0.50 [facility] Eosinophils/100 WBC (Bld) 2.1 % Normal [facility] Erythrocyte distribution width (RBC) [Ratio] 13.5 % Normal 11.6-14.8 [facility] Hematocrit (Bld) [Volume fraction] 42.5 % Normal 36.0-46.0 [facility] Hemoglobin (Bld) [Mass/Vol] 14.3 g/dL Normal 12.0-16.0 [facility] IG ABSOLUTE 0.01 K/mcL Normal 0.00-0.30 [facility] IG PERCENT 0.10 % Normal [facility] Comment on above: Result Comment: The IG parameter is the percentage of metamyelocytes, myelocytes and promyelocytes. An immature granulocyte count (IG) of 1% or more suggests the possibility of infection, an IG count of 3% is very likely related to an infection. Lymphocytes (Bld) [#/Vol] 2.04 10*3/uL Normal 0.90-4.00 [facility] Lymphocytes/100 WBC (Bld) 22.1 % Normal [facility] MCH (RBC) [Entitic mass] 31.0 pg Normal 26.0-34.0 [facility] MCV (RBC) [Entitic vol] 92.0 fL Normal 80.0-100.0 [facility] MEAN CORPUSCULAR HEMOGLOBIN CONC 33.6 g/dL Normal 31.0-37.0 [facility] Monocytes (Bld) [#/Vol] 0.60 10*3/uL Normal 0.30-0.90 [facility] Monocytes/100 WBC (Bld) 6.5 % Normal [facility] NEUTROPHILS ABSOLUTE COUNT 6.38 K/mcL Normal 1.70-7.00 [facility] Neutrophils/100 WBC (Bld) 68.9 % Normal [facility] Platelet mean volume (Bld) [Entitic vol] 10.7 fL Normal 9.4-12.4 [facility] Platelets (Bld) [#/Vol] 169 10*3/uL Normal 150-400 [facility] RBC (Bld) [#/Vol] 4.62 10*6/uL Normal 4.00-5.20 [facility] WBC (Bld) [#/Vol] 9.25 10*3/uL Normal 4.50-11.00 [facility] POC D-DIMER RALSon 4 POC D-DIMER 2730 ng/mL DDU High <350 [facility] Comment on above: Order Comment: Injur y/Trauma or Illness?:Illness/Other How long have you had these symptoms (acute/chronic)?:Acute Reason for exam?:COPD with acute exacerbation History of cancer?:no Surgeries, chemotherapy, or radiation?:appendix, tonsils Type of Exam?:Initial Additional signs and symptoms?:productive cough x 3 weeks, sob POC INFLUENZA A/B - [facility] 0 07-24-2024 POC INFLUENZA A (FSED) Not detected Normal Not Detected [facility] POC INFLUENZA B (FSED) Not detected Normal Not Detected [facility] POC PT-INR - [facility] 07-24-20 24 POC INR (SIG ELITE) 0.9 Normal 0.8-1.1 [facility] POC TROPONIN I [facility] 2023 Troponin I.cardiac [Mass/Vol] 0.06 ng/mL Off scale high <0.05 [facility] Comment on above: Order Comment: Criti misti result acted upon time of test. Test performed at bedside. POC VBG (EPOC) WITH FULL CASANOVA EL - [facility] 07-24-2024 BASE EXCESS, VENOUS 3.8 High -2.0-2.0 [facility] Comment on above: Order Comment: [facility] has implemented the eGFR calculation [...] syringe. CALCIUM IONIZED 4.8 mg/dL Normal 4.5-5.3 [facility] Comment on above: Order Comment: [facility] has implemented the eGFR calculation [...] syringe. Chloride [Moles/Vol] 103 mmol/L Normal 98-108 [facility] Comment on above: Order Comment: [facility] has implemented the eGFR calculation [...] syringe. Creatinine [Mass/Vol] 0.85 mg/dL Normal 0.60-1.20 [facility] Comment on above: Order Comment: [facility] has implemented the eGFR calculation approach [...] syringe. Glucose [Mass/Vol] 114 mg/dL High 65-99 [facility] Comment on above: Order Comment: [facility] has implemented the eGFR calculation approach [...] HCO3 (Bld) [Moles/Vol] 28.9 mmol/L High 24.0-28.0 [facility] Comment on above: Order Comment: [facility] has implemented the eGFR calculation approach that [...] (Bld) [Volume fraction] 45 % Normal 36-46 [facility] Comment on above: Order Comment: [facility] has implemented the eGFR calculation approach [...] syringe. HEMOGLOBIN, CALCULATED 15.3 g/dL Normal 12.0-16.0 [facility] Comment on above: Order Comment: [facility] has implemented the eGFR calculation approach that does not have a coefficient for race that conforms to the NKF-ASN Task Force Recommendations. Specimens collected in a lithium heparin tube may show erroneous pO2, pCO2 and related calculations due to aerobic handling. If the most accurate venous blood gas results are needed, use a heparinized blood gas syringe. O2 SATURATION VENOUS Normal [facility] Comment on above: Order Comment: [facility] has implemented the eGFR calculation approach [...] PCO2 VENOUS 43.9 mm Hg Normal 41.0-51.0 [facility] Comment on above: Order Comment: [facility] has implemented the eGFR calculation approach that does not have a coefficient for race that conforms to the NKF-ASN Task Force Recommendations. Specimens collected in a lithium heparin tube may show erroneous pO2, pCO2 and related calculations due to aerobic handling. If the most accurate venous blood gas results are needed, use a heparinized blood gas syringe. PH VENOUS 7.43 High 7.32-7.42 [facility] Comment on above: Order Comment: [facility] has implemented the eGFR calculation approach that does not have a coefficient for race that conforms to the NKF-ASN Task Force Recommendations. Specimens collected in a lithium heparin tube may show erroneous pO2, pCO2 and related calculations due to aerobic handling. If the most accurate venous blood gas results are needed, use a heparinized blood gas syringe. PO2 VENOUS < Low 25-40 [facility] Comment on above: Order Comment: [facility] has implemented the eGFR calculation approach that [...] POC GFR 72 mL/min/1.73 m2 Normal >=60 [facility] Comment on above: Order Comment: [facility] has implemented the eGFR calculation approach that [...] equation. POC LACTATE 1.0 mmol/L Normal 0.6-2.0 [facility] Comment on above: Order Comment: [facility] has implemented the eGFR calculation approach [...] syringe. Potassium [Moles/Vol] 3.4 mmol/L Low 3.5-5.1 [facility] Comment on above: Order Comment: [facility] has implemented the eGFR calculation approach [...] syringe. Sodium [Moles/Vol] 144 mmol/L Normal 135-145 [facility] Comment on above: Order Comment: [facility] has implemented the eGFR calculation approach [...] Urea nitrogen [Mass/Vol] 11 mg/dL Normal 8-25 [facility] Comment on above: Order Comment: [facility] has implemented the eGFR calculation approach [...] [id number] Dictated by: CJ DE SOUZA on [facility] Jul 24, 2024 6:34:27 PM EDT Transcribed by: CJ DE SOUZA on [facility] Jul 24, 2024 6:34:27 PM EDT Finalized by: CJ DE SOUZA on [facility] Jul 24, 2024 6:34:[address] [facility] Comment on above: Order Comment: Injur y/Trauma or Illness?:Illness/Other How long have you had these symptoms (acute/chronic)?:Acute Reason for exam?:COPD with acute exacerbation History of cancer?:no Surgeries, chemotherapy, or radiation?:appendix, tonsils Type of Exam?:Initial Additional signs and symptoms?:productive cough x 3 weeks, sob CBC WITH AUTO DIFFERENTIALon 04-12-2024 AUTO NRBC 0.0 % Normal [facility] Comment on above: Performed By: #### L [id number] #### MH LAB [address] [place], [place] [address] Davian Unger M.D. [id number] AUTO NRBC ABS COUNT 0.00 K/mcL Normal 0.00-0.00 [facility] Comment on above: Performed By: #### L [id number] #### LAB [address] [address] Davian Unger M.D. [id number] BASOPHILS ABSOLUTE COUNT 0.06 K/mcL Normal 0.00-0.30 [facility] Comment on above: Performed By: #### L [id number] #### LAB [address] [address] Davian Unger M.D. [id number] Basophils/100 WBC (Bld) 0.9 % Normal [facility] Comment on above: Performed By: #### L [id number] #### LAB [address] [address] Davian Unger M.D. [id number] Eosinophils (Bld) [#/Vol] 0.22 10*3/uL Normal 0.00-0.50 [facility] Comment on above: Performed By: #### L [id number] #### LAB [address] [address] Davian Unger M.D. [id number] Eosinophils/100 WBC (Bld) 3.4 % Normal [facility] Comment on above: Performed By: #### L [id number] #### LAB [address] [address] Davian Unger M.D. [id number] Erythrocyte distribution width (RBC) [Ratio] 13.4 % Normal 11.6-14.8 [facility] Comment on above: Performed By: #### L [id number] #### LAB [address] [address] Davian Unger M.D. [id number] Hematocrit (Bld) [Volume fraction] 40.8 % Normal 36.0-46.0 [facility] Comment on above: Performed By: #### L [id number] #### LAB [address] [address] Davian Unger M.D. [id number] Hemoglobin (Bld) [Mass/Vol] 13.9 g/dL Normal 12.0-16.0 [facility] Comment on above: Performed By: #### L [id number] #### LAB [address] [place] [address] Davian Unger M.D. [id number] IG ABSOLUTE 0.02 K/mcL Normal 0.00-0.30 [facility] Comment on above: Performed By: #### L [id number] #### LAB [address] [address] Davian Unger M.D. [id number] IG PERCENT 0.30 % Normal [facility] Comment on above: Result Comment: The IG parameter is the percentage of metamyelocytes, myelocytes and promyelocytes. An immature granulocyte count (IG) of 1% or more suggests the possibility of infection, an IG count of 3% is very likely related to an infection. Performed By: #### L [id number] #### LAB [address] [place] [address] Davian Unger M.D. [id number] Lymphocytes (Bld) [#/Vol] 1.86 10*3/uL Normal 0.90-4.00 [facility] Comment on above: Performed By: #### L [id number] #### LAB [address] [place] [address] Davian Unger M.D. [id number] Lymphocytes/100 WBC (Bld) 28.6 % [facility] Comment on above: Performed By: #### L [id number] #### LAB [address] [place] [address] Davian Unger M.D. [id number] MCH (RBC) [Entitic mass] 31.0 pg Normal 26.0-34.0 [facility] Comment on above: Performed By: #### L [id number] #### LAB [address] [address] Davian Unger M.D. [id number] MCV (RBC) [Entitic vol] 91.1 fL Normal 80.0-100.0 [facility] Comment on above: Performed By: #### L [id number] #### LAB [address] [address] Davian Unger M.D. [id number] MEAN CORPUSCULAR HEMOGLOBIN CONC 34.1 g/dL Normal 31.0-37.0 [facility] Comment on above: Performed By: #### L [id number] #### LAB [address] [address] Davian Unger M.D. [id number] Monocytes (Bld) [#/Vol] 0.41 10*3/uL Normal 0.30-0.90 [facility] Comment on above: Performed By: #### L [id number] #### LAB [address] [address] Davian Unger M.D. [id number] Monocytes/100 WBC (Bld) 6.3 % Normal [facility] Comment on above: Performed By: #### L [id number] #### LAB [address] [address] Davian Unger M.D. [id number] NEUTROPHILS ABSOLUTE COUNT 3.93 K/mcL Normal 1.70-7.00 [facility] Comment on above: Performed By: #### L [id number] #### LAB [address] [address] Davian Unger M.D. [id number] Neutrophils/100 WBC (Bld) 60.5 % Normal [facility] Comment on above: Result Comment: Christina pheral smear reviewed manually Performed By: #### L [id number] #### LAB [address] [address] Davian Unger M.D. [id number] Platelet mean volume (Bld) [Entitic vol] 12.0 fL Normal 9.4-12.4 [facility] Comment on above: Performed By: #### L [id number] #### LAB [address] [address] Davian Unger M.D. [id number] Platelets (Bld) [#/Vol] 145 10*3/uL Low 150-400 [facility] Comment on above: Result Comment: Plat elets clumped on smear but appear normal. If clinically indicated, please request a citrate platelet count Performed By: #### L [id number] #### LAB [address] [address] Davian Unger M.D. [id number] RBC (Bld) [#/Vol] 4.48 10*6/uL Normal 4.00-5.20 [facility] Comment on above: Performed By: #### L [id number] #### MH LAB [address] [address] Davian Unger M.D. [id number] WBC (Bld) [#/Vol] 6.50 10*3/uL Normal 4.50-11.00 [facility] Comment on above: Performed By: #### L [id number] #### LAB [address] [address] Davian Unger M.D. [id number] COMPREHENSIVE METABOLIC PANE [facility] 04-12-2024 Albumin [Mass/Vol] 4.3 g/dL Normal 3.2-5.2 [facility] Comment on above: Order Comment: [facility] has implemented the eGFR calculation approach that does not have a coefficient for race that conforms to the NKF-ASN Task Force Recommendations. Performed By: #### L [id number] #### LAB [address] [address] Davian Unger M.D. [id number] ALP [Catalytic activity/Vol] 86 U/L Normal 40-150 [facility] Comment on above: Order Comment: [facility] has implemented the eGFR calculation approach that does not have a coefficient for race that conforms to the NKF-ASN Task Force Recommendations. Performed By: #### L [id number] #### LAB [address] [address] Davian Unger M.D. [id number] ALT [Catalytic activity/Vol] 13 U/L Normal 0-35 U/L [facility] Comment on above: Order Comment: [facility] has implemented the eGFR calculation approach that does not have a coefficient for race that conforms to the NKF-ASN Task Force Recommendations. Performed By: #### L [id number] #### MH LAB [address] [address] Davian Unger M.D. [id number] Anion gap [Moles/Vol] 17 mmol/L Normal 10-20 [facility] Comment on above: Order Comment: [facility] has implemented the eGFR calculation approach that does not have a coefficient for race that conforms to the NKF-ASN Task Force Recommendations. Performed By: #### L [id number] #### MH LAB [address] [address] Davian Unger M.D. [id number] AST [Catalytic activity/Vol] 18 U/L Normal 0-35 U/L [facility] Comment on above: Order Comment: [facility] has implemented the eGFR calculation approach that does not have a coefficient for race that conforms to the NKF-ASN Task Force Recommendations. Performed By: #### L [id number] #### MH LAB [address] [address] Davian Unger M.D. [id number] Bilirubin [Mass/Vol] 0.6 mg/dL Normal 0.0-1.3 [facility] [place] Comment on above: Order Comment: [facility] has implemented the eGFR calculation approach that does not have a coefficient for race that conforms to the NKF-ASN Task Force Recommendations. Performed By: #### L [id number] #### MH LAB [address] [address] Davian Unger M.D. [id number] Calcium [Mass/Vol] 9.6 mg/dL Normal 8.4-10.2 [facility] Comment on above: Order Comment: [facility] has implemented the eGFR calculation approach that does not have a coefficient for race that conforms to the NKF-ASN Task Force Recommendations. Performed By: #### L [id number] #### MH LAB [address] [address] Davian Unger M.D. [id number] Chloride [Moles/Vol] 101 mmol/L Normal 98-108 [facility] [place] Comment on above: Order Comment: [facility] has implemented the eGFR calculation approach that does not have a coefficient for race that conforms to the NKF-ASN Task Force Recommendations. Performed By: #### L [id number] #### MH LAB [address] [place], [place] [address] Davian Unger M.D. [id number] Creatinine [Mass/Vol] 0.88 mg/dL Normal 0.60-1.10 [facility] Comment on above: Order Comment: [facility] has implemented the eGFR calculation approach that does not have a coefficient for race that conforms to the NKF-ASN Task Force Recommendations. Performed By: #### L [id number] #### MH LAB [address] [address] Davian Unger M.D. [id number] EGFR 69 mL/min/1.73 m2 Normal >=60 [facility] Comment on above: Order Comment: [facility] has implemented the eGFR calculation approach that does not have a coefficient for race that conforms to the NKF-ASN Task Force Recommendations. Result Comment: Hayde mated GFR was calculated using the 2020 CKD-EPI creatinine equation. Performed By: #### L [id number] #### MH LAB [address] [place], [place] [address] Davian Unger M.D. [id number] Glucose [Mass/Vol] 89 mg/dL Normal 65-99 [facility] Comment on above: Order Comment: [facility] has implemented the eGFR calculation approach that does not have a coefficient for race that conforms to the NKF-ASN Task Force Recommendations. Performed By: #### L [id number] #### [facility] LAB [address] [id number] Davian Unger M.D. [id number] HCO3 (Bld) [Moles/Vol] 27 mmol/L Normal 21-32 [facility] Comment on above: Order Comment: [facility] has implemented the eGFR calculation approach that does not have a coefficient for race that conforms to the NKF-ASN Task Force Recommendations. Performed By: #### L [id number] #### MH LAB [address] [address] Davian Unger M.D. [id number] Potassium [Moles/Vol] 3.7 mmol/L Normal 3.5-5.1 [facility] Comment on above: Order Comment: [facility] has implemented the eGFR calculation approach that does not have a coefficient for race that conforms to the NKF-ASN Task Force Recommendations. Performed By: #### L [id number] #### MH LAB [address] [address] Davian Unger M.D. [id number] Protein [Mass/Vol] 7.1 g/dL Normal 6.0-8.0 [facility] Comment on above: Order Comment: [facility] has implemented the eGFR calculation approach that does not have a coefficient for race that conforms to the NKF-ASN Task Force Recommendations. Performed By: #### L [id number] #### MH LAB [address] [address] Davian Unger M.D. [id number] Sodium [Moles/Vol] 141 mmol/L Normal 135-145 [facility] Comment on above: Order Comment: [facility] has implemented the eGFR calculation approach that does not have a coefficient for race that conforms to the NKF-ASN Task Force Recommendations. Performed By: #### L [id number] #### MH LAB [address] [address] Davian Unger M.D. [id number] Urea nitrogen [Mass/Vol] 15 mg/dL Normal 8-25 [facility] Comment on above: Order Comment: [facility] has implemented the eGFR calculation approach that does not have a coefficient for race that conforms to the NKF-ASN Task Force Recommendations. Performed By: #### L [id number] #### MH LAB [address] [address] Davian Unger M.D. [id number] Urea nitrogen/Creatinine [Mass ratio] 17.0 mg/mg Normal 10.0-20.0 [facility] Comment on above: Order Comment: [facility] has implemented the eGFR calculation approach that does not have a coefficient for race that conforms to the NKF-ASN Task Force Recommendations. Performed By: #### L [id number] #### MH LAB [address] [place], [place] [address] Davian Unger M.D. [id number] Comprehensive metabolic 2000 panelOrdered By: Jacki Gonzalez on 04-12-2024 Albumin [Mass/Vol] 4.3 g/dL 3.2 - 5.2 g/dL [facility] ALP [Catalytic activity/Vol] 86 U/L 40 - 150 U/L [facility] ALT [Catalytic activity/Vol] 13 U/L 0-35 U/L [facility] Anion gap [Moles/Vol] 17 mmol/L 10 - 2 0 mmol/L [facility] AST [Catalytic activity/Vol] 18 U/L 0-35 U/L [facility] Bilirubin [Mass/Vol] 0.6 mg/dL 0.0 - 1 .3 mg/dL [facility] Calcium [Mass/Vol] 9.6 mg/dL 8.4 - 10. 2 mg/dL [facility] Chloride [Moles/Vol] 101 mmol/L 98 - 10 8 mmol/L [facility] Creatinine [Mass/Vol] 0.88 mg/dL 0.60 - 1.10 mg/dL [facility] GFR/1.73 sq M.predicted CKD-EPI (S/P/Bld) [Vol rate/Area] 69 - PINF [facility] Comment on above: Estimated GFR was ca lculated using the 2020 CKD-EPI creatinine equation. Glucose [Mass/Vol] 89 mg/dL 65 - 99 mg/dL [facility] HCO3 [Moles/Vol] 27 mmol/L 21 - 32 mmol/L [facility] Interpretation and review of laboratory results Normal [facility] Potassium [Moles/Vol] 3.7 mmol/L 3.5 - 5.1 mmol/L [facility] Protein [Mass/Vol] 7.1 g/dL 6.0 - 8.0 g/dL [facility] Sodium [Moles/Vol] 141 mmol/L 135 - 145 mmol/L [facility] Urea nitrogen [Mass/Vol] 15 mg/dL 8 - 25 mg/dL [facility] Urea nitrogen/Creatinine [Mass ratio] 17.0 mg/mg 10.0 - 20.0 [facility] has implemented the eGFR calculation approach that does not have a coefficient for race that conforms to the NKF-ASN Task Force Recommendations. [facility] HEMOGLOBIN A1Con 04-12-2024 Glucose [Mass/Vol] 117 mg/dL High 74-114 [facility] Comment on above: Performed By: #### L [id number] #### MH LAB [address] [address] Davian Unger M.D. [id number] HbA1c (Bld) [Mass fraction] 5.7 % High 4.2-5.6 [facility] Comment on above: Performed By: #### L [id number] #### MH LAB [address] [address] Davian Unger M.D. [id number] HbA1c (Bld) [Mass fraction]o n 04-12-2024 Average glucose Estimated from glycated hemoglobin (Bld) [Mass/Vol] 117 mg/dL High 74 - 114 mg/dL [facility] Interpretation and review of laboratory results Abnormal [facility] Hemoglobin A1con 04-12-2024 HbA1c (Bld) [Mass fraction] 5.7 % High 4.2 - 5.6 % [facility] LIPID PANELon 04-12-2024 Cholesterol [Mass/Vol] 184 mg/dL Normal 100-199 [facility] Comment on above: Performed By: #### 4 [id number] ####MH LAB [address] [address] Davian Unger M.D. [id number] Cholesterol in HDL [Mass/Vol] 66 mg/dL Normal 40-59 [facility] Comment on above: Performed By: #### 4 [id number] ####MH LAB [address] [address] Davian Unger M.D. [id number] Cholesterol.total/Randa sterol in HDL [Mass ratio] 2.8 {ratio} Normal [facility] Comment on above: Result Comment: Fema le Cholesterol/HDL Ratio: Average risk: 4.4 1/2 average risk: 3.3 2 x average risk: 7.1 Performed By: #### 4 6087 #### LAB [address] [place], [place] [address] Davian Unger M.D. [id number] LDL CHOLESTEROL CALCULATED 98 mg/dL Normal 10-130 [facility] Comment on above: Result Comment: [facility] Cholesterol Education Program Guidelines: LDL Cholesterol Optimal: <100 mg/dL Near Optimal/above Optimal: 100-129 mg/dL Borderline High: 130-159 mg/dL High: 160-189 mg/dL Very High: greater than or equal to 190 mg/dL Performed By: #### 4 6087 #### LAB [address] [place], [place] [address] Davian Unger M.D. [id number] NON HDL CHOL 118 mg/dL Normal [facility] Comment on above: Result Comment: [facility] Cholesterol Education Program Guidelines: NON HDL Cholesterol Desirable: <130 mg/dL Borderline High: 130-159 mg/dL High: 160-189 mg/dL Very High: > or = 190 mg/dL Performed By: #### 4 6087 #### LAB [address] [place], [place] [address] Davian Unger M.D. [id number] Triglyceride [Mass/Vol] 100 mg/dL Normal 30-150 [facility] Comment on above: Performed By: #### 4 6087 #### LAB [address] [place], [place] [address] Davian Unger M.D. [id number] Lipid 1996 panelon Cholesterol [Mass/Vol] 184 mg/dL 100 - 199 mg/dL [facility] Cholesterol in HDL [Mass/Vol] 66 mg/dL 40 - 59 mg/dL [facility] Cholesterol in LDL [Mass/Vol] 98 mg/dL 10 - 130 mg/dL [facility] Comment on above: National Cholesterol Education Program Guidelines: LDL Cholesterol Optimal: <100 mg/dL Near Optimal/above Optimal: 100-129 mg/dL Borderline High: 130-159 mg/dL High: 160-189 mg/dL Very High: greater than or equal to 190 mg/dL Cholesterol non HDL [Mass/Vol] 118 mg/dL [facility] Comment on above: National Cholesterol Education Program Guidelines: NON HDL Cholesterol Desirable: <130 mg/dL Borderline High: 130-159 mg/dL High: 160-189 mg/dL Very High: > or = 190 mg/dL Cholesterol.total/Randa sterol in HDL [Mass ratio] 2.8 {ratio} ratio [facility] Comment on above: Female Cholesterol/H DL Ratio: Average risk: 4.4 1/2 average risk: 3.3 2 x average risk: 7.1 Triglyceride [Mass/Vol] 100 mg/dL 30 - 150 mg/dL [facility] MICROALBUMIN/CREATININE RATI O, UR RANDOMon 04-12-2024 Albumin DL <= 20 mg/L (U) [Mass/Vol] 0.4 mg/dL Normal 0.0-1.8 [facility] Comment on above: Performed By: #### L [id number] #### MH LAB [address] [address] Davian Unger M.D. [id number] CREATININE, URINE, RANDOM 45.1 mg/dL Normal [facility] Comment on above: Performed By: #### L [id number] #### MH LAB [address] [address] Davian Unger M.D. [id number] MICROALBUMIN/CREATININE RATIO 9 mg/g crea Normal 0-25 [facility] Comment on above: Performed By: #### L [id number] #### MH LAB [address] [address] Davian Unger M.D. [id number] MORPHOLOGYon 04-12-2024 OVAL SCAN Few Normal [facility] Comment on above: Performed By: #### L [id number] #### MH LAB [address] [address] Davian Unger M.D. [id number] RBC MORPH SCAN See Comment Normal [facility] Comment on above: Result Comment: RBC Indices confirmed with manual peripheral smear review. Performed By: #### L [id number] #### MH LAB [address] [address] Davian Unger M.D. [id number] Microalbumin/Creatinine Rati o, UR RandomOrdered By: Sandrita Ramirez on 04-12-2024 Albumin DL <= 20 mg/L (U) [Mass/Vol] 0.4 mg/dL 0.0 - 1.8 mg/dL [facility] Albumin/Creatinine DL <= 20 mg/L (U) [Mass ratio] 9 mg/g [facility] Creatinine (U) [Mass/Vol] 45.1 mg/dL [facility] No Panel Informationon 04-12 [facility] TSH DL <= 0.005 mIU/L Qnon 0 04-12-2024 Interpretation and review of laboratory results Normal [facility] TSH Qn 1.38 m[IU]/L [facility] TSH WITH REFLEX FREE T4on TSH Qn 1.38 m[IU]/L Normal 0.27-4.20 [facility] Comment on above: Performed By: #### L [id number] #### MH LAB [address] [place], [place] [address] Davian Unger M.D. [id number] XR CHEST AP/PA AND LATon XR CHEST [...] on FriApr 13, 2024 2:37:46 PM EDT [facility] Comment on above: Order Comment: Injur y/Trauma or Illness?:Illness/Other How long have you had these symptoms (acute/chronic)?:Acute Reason for exam?:COPD with acute exacerbation History of cancer?:no Surgeries, chemotherapy, or radiation?:appendix, tonsils Type of Exam?:Initial Additional signs and symptoms?:productive cough x 3 weeks, sob CBCon 05-07-2023 Erythrocyte distribution width (RBC) [Ratio] 13.2 % Normal 11.5 - 14.5 [facility] Comment on above: Performed By: #### C BC #### [address] [address] Hematocrit (Bld) [Volume fraction] 39.1 % Normal 36.0 - 46.0 [facility] Comment on above: Performed By: #### C BC #### [address] [address] Hemoglobin (Bld) [Mass/Vol] 13.2 g/dL Normal 12.0 - 16.0 [facility] Comment on above: Performed By: #### C BC #### [address] [address] MCHC (RBC) [Mass/Vol] 33.8 g/dL Normal 32.0 - 36.0 [facility] Comment on above: Performed By: #### C BC #### [address] [address] MCV (RBC) [Entitic vol] 92 fL Normal 80 - 100 [facility] Comment on above: Performed By: #### C BC #### [address] [address] Platelets (Bld) [#/Vol] 157 10*3/uL Normal 150 - 450 [facility] Comment on above: Performed By: #### C BC #### [address] [address] RBC 4.27 x10E12/L Normal 4.00 - 5.20 [facility] Comment on above: Performed By: #### C BC #### [address] [address] WBC (Bld) [#/Vol] 4.7 10*3/uL Normal 4.4 - 11.3 [facility] Comment on above: Performed By: #### C BC #### [address] [address] COMPREHENSIVE PANELon 2022 Albumin [Mass/Vol] 4.1 g/dL Normal 3.4 - 5.0 [facility] Comment on above: Performed By: #### C MP #### [address] [address] ALP [Catalytic activity/Vol] 65 U/L Normal 33 - 136 [facility] Comment on above: Performed By: #### C MP #### [address] [address] ALT [Catalytic activity/Vol] 17 U/L Normal 7 - 45 [facility] Comment on above: Result Comment: Paige ents treated with Sulfasalazine may generate falsely decreased results for ALT. Performed By: #### C MP #### [address] [address] Anion gap [Moles/Vol] 11 mmol/L Normal 10 - 20 [facility] Comment on above: Performed By: #### C MP #### [address] [address] AST [Catalytic activity/Vol] 16 U/L Normal 9 - 39 [facility] Comment on above: Performed By: #### C MP #### [address] [address] Bilirubin [Mass/Vol] 0.8 mg/dL Normal 0.0 - 1.2 [facility] [place] Comment on above: Performed By: #### C MP #### [address] [address] Calcium [Mass/Vol] 9.3 mg/dL Normal 8.6 - 10.3 [facility] Comment on above: Performed By: #### C MP #### [address] [address] Chloride [Moles/Vol] 104 mmol/L Normal 98 - 107 [facility] [place] Comment on above: Performed By: #### C MP #### [address] [address] Creatinine [Mass/Vol] 0.92 mg/dL Normal 0.50 - 1.05 [facility] Comment on above: Performed By: #### C MP #### [address] [address] GFR/1.73 sq M.predicted among non-blacks MDRD (S/P/Bld) [Vol rate/Area] 66 mL/min/{1.73_m2} Normal >90 [facility] Comment on above: Result Comment: CALC ULATIONS OF ESTIMATED GFR ARE PERFORMED USING THE 2020 CKD-EPI STUDY REFIT EQUATION WITHOUT THE RACE VARIABLE FOR THE IDMS-TRACEABLE CREATININE METHODS. https://jasn.asnjournals.org/content/early/ASN.2020 723000 Performed By: #### C MP #### [address] [address] Glucose [Mass/Vol] 119 mg/dL High 74 - 99 [facility] Comment on above: Performed By: #### C MP #### [address] [address] HCO3 (Bld) [Moles/Vol] 26 mmol/L Normal 21 - 32 [facility] Comment on above: Performed By: #### C MP #### [address] [address] Potassium [Moles/Vol] 3.4 mmol/L Low 3.5 - 5.3 [facility] Comment on above: Performed By: #### C MP #### [address] [address] Protein [Mass/Vol] 6.4 g/dL Normal 6.4 - 8.2 [facility] Comment on above: Performed By: #### C MP #### [address] [address] Sodium [Moles/Vol] 138 mmol/L Normal 136 - 145 [facility] Comment on above: Performed By: #### C MP #### [address] [address] Urea nitrogen [Mass/Vol] 16 mg/dL Normal 6 - 23 [facility] Comment on above: Performed By: #### C MP #### [address] [address] HEMOGLOBIN A1Con 05-07-2023 Glucose [Mass/Vol] 114 mg/dL Normal [facility] Comment on above: Performed By: #### H BA1E #### [address] [address] HbA1c (Bld) [Mass fraction] 5.6 % Normal [facility] Comment on above: Result Comment: Diag nosis of Diabetes-Adults Non-Diabetic: < or = 5.6% Increased risk for developing diabetes: 5.7-6.4% Diagnostic of diabetes: > or = 6.5% . Monitoring of Diabetes Age (y) Therapeutic Goal (%) Adults: >18 <7.0 Pediatrics: 13-18 <7.5 7-12 <8.0 0- 6 7.5-8.5 [employer]. Diabetes Care 33(S1), Nov 2009. Performed By: #### H BA1E #### [address] [address] LIPID PANEL (CORONARY RISK 2 )on 05-07-2023 Cholesterol [Mass/Vol] 169 mg/dL Normal 0 - 199 [facility] Comment on above: Result Comment: . AGE [...] dosing. Performed By: #### L IPID #### [address] [address] Cholesterol in HDL [Mass/Vol] 65.0 mg/dL Normal [facility] Comment on above: Result Comment: . AGE VERY LOW LOW NORMAL HIGH 0-19 Y < 35 < 40 40-45 ---- 20-24 Y ---- < 40 >45 ---- >24 Y ---- < 40 40-60 >60 . Performed By: #### L IPID #### [address] [address] Cholesterol in LDL [Mass/Vol] 89 mg/dL Normal 0 - 99 [facility] Comment on above: Result Comment: . NEAR BORD AGE DESIRABLE OPTIMAL HIGH HIGH VERY HIGH 0-19 Y 0 - 109 --- 110-129 >/= 130 ---- 20-24 Y 0 - 119 --- 120-159 >/= 160 ---- >24 Y 0 - 99 100-129 130-159 160-189 >/=190 . Performed By: #### L IPID #### [address] [address] Cholesterol in VLDL [Mass/Vol] 15 mg/dL Normal 0 - 40 [facility] Comment on above: Performed By: #### L IPID #### [address] [address] Cholesterol.total/Randa sterol in HDL [Mass ratio] 2.6 {ratio} Normal [facility] Comment on above: Result Comment: REF VALUES DESIRABLE < 3.4 HIGH RISK > 5.0 Performed By: #### L IPID #### [address] [address] Triglyceride [Mass/Vol] 74 mg/dL Normal 0 - 149 [facility] Comment on above: Result Comment: . AGE [...] dosing. Performed By: #### L IPID #### [address] [address] TSHon 05-07-2023 TSH Qn 1.09 m[IU]/L Normal 0.44 - 3.98 [facility] Comment on above: Result Comment: TSH testing is performed using different testing methodology at [facility] than at other [facility] hospitals. Direct result comparisons should only be made within the same method. Performed By: #### T SH2 #### [facility] [place] [address] [place] [address] Office Visit (Primary Care T xt/Forms)on 11-12-2022 [...] by mouth once daily Health Maintenance Renew: Azelastine-Fluticason e 137-50 MCG/ACT Nasal Suspension (Dymista); USE 1 SPRAY(S) IN EACH NOSTRIL TWICE DAILY Renew: Montelukast Sodium 10 MG Oral Tablet; TAKE 1 TABLET AT BEDTIME Renew: Nystatin 574643 UNIT/GM External Cream; APPLY AND RUB IN [...] (Z87.891) Patient has active durable power of deputy commonwealth's attorney (DPOA) designee for healthcare Patient has living will (V49.89) (Z78.9) Current Meds Medication NameInstruction Advair HFA 230-21 MCG/ACT Inhalation AerosolINHALE 2 PUFFS, BY MOUTH, TWICE DAILY. (more content not included)... Normal [employer] Tobacco Screening.on 023 Adult depression screening assessment No [employer] [facility] Work Phone: Fall risk assessment a) No falls within the last year [facility] Work Phone: Tobacco use status CPHS b) No [facility] [employer] [facility] Work Phone: BASIC METABOLIC PANELon Anion gap [Moles/Vol] 12 mmol/L Normal 10 - 20 [facility] Comment on above: Performed By: #### B #### [place] [address] Calcium [Mass/Vol] 9.6 mg/dL Normal 8.6 - 10.3 [facility] Comment on above: Performed By: #### B MP #### [address] [address] Chloride [Moles/Vol] 102 mmol/L Normal 98 - 107 [facility] [place] Comment on above: Performed By: #### B MP #### [address] [address] Creatinine [Mass/Vol] 0.96 mg/dL Normal 0.50 - 1.05 [facility] Comment on above: Performed By: #### B MP #### [address] [address] GFR/1.73 sq M.predicted among non-blacks MDRD (S/P/Bld) [Vol rate/Area] 63 mL/min/{1.73_m2} Normal >90 [facility] Comment on above: Result Comment: CALC ULATIONS OF ESTIMATED GFR ARE PERFORMED USING THE 2020 CKD-EPI STUDY REFIT EQUATION WITHOUT THE RACE VARIABLE FOR THE IDMS-TRACEABLE CREATININE METHODS. https://jasn.asnjournals.org/content//ASN.2020 584887 Performed By: #### B MP #### [address] [address] Glucose [Mass/Vol] 106 mg/dL High 74 - 99 [facility] Comment on above: Performed By: #### B MP #### [address] [address] HCO3 (Bld) [Moles/Vol] 30 mmol/L Normal 21 - 32 [facility] Comment on above: Performed By: #### B MP #### [address] [address] Potassium [Moles/Vol] 3.8 mmol/L Normal 3.5 - 5.3 [facility] Comment on above: Performed By: #### B MP #### [address] [address] Sodium [Moles/Vol] 140 mmol/L Normal 136 - 145 [facility] Comment on above: Performed By: #### B MP #### [address] [address] Urea nitrogen [Mass/Vol] 12 mg/dL Normal 6 - 23 [facility] Comment on above: Performed By: #### B MP #### [address] [address] HEMOGLOBIN A1Con 11-05-2022 Glucose [Mass/Vol] 108 mg/dL Normal [facility] Comment on above: Performed By: #### H BA1E #### [address] [address] HbA1c (Bld) [Mass fraction] 5.4 % Normal [facility] Comment on above: Result Comment: Diag nosis of Diabetes-Adults Non-Diabetic: < or = 5.6% Increased risk for developing diabetes: 5.7-6.4% Diagnostic of diabetes: > or = 6.5% . Monitoring of Diabetes Age (y) Therapeutic Goal (%) Adults: >18 <7.0 Pediatrics: 13-18 <7.5 7-12 <8.0 0- 6 7.5-8.5 [employer]. Diabetes Care 33(S1), Nov 2009. Performed By: #### H BA1E #### [address] [address] Hemoglobin A1Con 11-05-2022 Glucose [Mass/Vol] 108 mg/dL [facility] Work Phone: HbA1c (Bld) [Mass fraction] 5.4 % [facility] Work Phone: Comment on above: Diagnosis of Diabete s-Adults Non-Diabetic: < or = 5.6% Increased risk for developing diabetes: 5.7-6.4% Diagnostic of diabetes: > or = 6.5%. Monitoring of Diabetes Age (y) Therapeutic Goal (%) Adults: >18 <7.0 Pediatrics: 13-18 <7.5 7-12 <8.0 0- 6 7.5-8.5 [employer]. Diabetes Care 33(S1), Nov 2009. Laboratory - Chemistry and C hemistry - challengeon 11-05-2022 Anion gap [Moles/Vol] 12 mmol/L 10 - [address] [facility] Work Phone: Calcium [Mass/Vol] 9.6 mg/dL 8.6 - 10.3 [facility] ical [employer] [facility] Work Phone: Chloride [Moles/Vol] 102 mmol/L 98 - 107 - [facility] Work Phone: CO2 [Moles/Vol] 30 mmol/L 21 - [address] [facility] [employer] [facility] Work Phone: Creatinine [Mass/Vol] 0.96 mg/dL See Below [facility] [employer] [facility] Work Phone: Comment on above: Reference Range: 0.5 0 - 1.05 Glucose [Mass/Vol] 106 mg/dL above high threshold 74 - 99 [facility] Work Phone: Potassium [Moles/Vol] 3.8 mmol/L 3.5 - 5.3 [facility] Work Phone: Sodium [Moles/Vol] 140 mmol/L 136 - 145 [facility] [employer] [facility] Work Phone: Urea nitrogen [Mass/Vol] 12 mg/dL 6 - 23 [facility] Work Phone: No Panel Informationon 11-05 63 {mL/min/1.73m2} >90 [facility] Work Phone: Comment on above: CALCULATIONS OF HAYDE MATED GFR ARE PERFORMED USING THE 2020 CKD-EPI STUDY REFIT EQUATION WITHOUT THE RACE VARIABLE FOR THE IDMS-TRACEABLE CREATININE METHODS.https://jasn.asnjournals.org/content// ASN.4230988990 Mamm - Screening Mammogram w / Tomosynthesison 04-15-2022 MG Breast Screening Normal [facility] dical [employer] [facility] Work Phone: Medicare Annual Wellness Vis nuha 04-12-2022 Medicare Annual Wellness Visit *Chief Complaint [...] Screening.on 022 Adult depression screening assessment Yes [employer] [facility] [employer] Phone: Fall risk assessment a) No falls within the last year [employer] [facility] [employer] Phone: Tobacco use status CPHS a) Yes [facility] [facility] [employer] Phone: Tobacco Screening. Yes [employer] [facility] Work Phone: Hemoglobin A1Con 04-04-2022 Glucose [Mass/Vol] 120 mg/dL [employer] [facility] [employer] Phone: HbA1c (Bld) [Mass fraction] 5.8 % Abnormal [employer] [employer] Phone: Comment on above: Diagnosis of Diabete s-Adults Non-Diabetic: < or = 5.6% Increased risk for developing diabetes: 5.7-6.4% Diagnostic of diabetes: > or = 6.5%. Monitoring of Diabetes Age (y) Therapeutic Goal (%) Adults: >18 <7.0 Pediatrics: 13-18 <7.5 7-12 <8.0 0- 6 7.5-8.5 [employer]. Diabetes Care 33(S1), Nov 2009. Laboratory - Chemistry and C hemistry - challengeon 04-04-2022 Albumin BCP dye [Mass/Vol] 4.0 g/dL 3.4 - 5.0 [employer] [facility] Work Phone: ALP [Catalytic activity/Vol] 66 U/L 33 - 136 [email or web address] [facility] Work Phone: ALT With P-5'-P [Catalytic activity/Vol] 20 U/L 7 - [address] [facility] Work Phone: Comment on above: Patients treated wit h Sulfasalazine may generate falsely decreased results for ALT. Anion gap [Moles/Vol] 12 mmol/L 10 - [address] [facility] Work Phone: AST With P-5'-P [Catalytic activity/Vol] 19 U/L 9 - [address] [facility] Work Phone: Bilirubin [Mass/Vol] 0.9 mg/dL 0.0 - 1.2 [facility] [employer] [facility] Work Phone: Calcium [Mass/Vol] 9.3 mg/dL 8.6 - 10.3 [facility] [employer] [facility] Work Phone: Chloride [Moles/Vol] 104 mmol/L 98 - 107 [facility] [employer] [facility] Work Phone: CO2 [Moles/Vol] 26 mmol/L 21 - 32 [facility] [employer] [facility] Work Phone: Creatinine [Mass/Vol] 0.82 mg/dL See Below [facility] Work Phone: Comment on above: Reference Range: 0.5 0 - 1.05 Glucose [Mass/Vol] 118 mg/dL above high threshold 74 - [address] [address] [facility] Work Phone: Potassium [Moles/Vol] 4.1 mmol/L 3.5 - 5.[address] [facility] Medical [employer] [facility] Work Phone: Protein [Mass/Vol] 6.6 g/dL 6.4 - 8.2 [facility] [employer] [facility] Work Phone: Sodium [Moles/Vol] 138 mmol/L 136 - 145 [facility] [employer] [facility] Work Phone: Urea nitrogen [Mass/Vol] 14 mg/dL 6 - [address] [facility] Work Phone: Laboratory - Hematology and Cell countson 04-04-2022 Erythrocyte distribution width (RBC) [Ratio] 14.2 % See Below [facility] Work Phone: Comment on above: Reference Range: 11. 5 - 14.5 Hematocrit (Bld) [Volume fraction] 38.1 % See Below [facility] Work Phone: Comment on above: Reference Range: 36. 0 - 46.0 Hemoglobin (Bld) [Mass/Vol] 13.2 g/dL See Below [facility] Work Phone: Comment on above: Reference Range: 12. 0 - 16.0 MCHC (RBC) [Mass/Vol] 34.5 g/dL See Below [facility] Work Phone: Comment on above: Reference Range: 32. 0 - 36.0 MCV (RBC) [Entitic vol] 91 fL 80 - 100 M [facility] Work Phone: Platelets (Bld) [#/Vol] 210 10*3/uL 150 - 450 [facility] [employer] [facility] Work Phone: RBC (Bld) [#/Vol] 4.19 {x10E12/L} See Below [facility] Work Phone: Comment on above: Reference Range: 4.0 0 - 5.20 WBC (Bld) [#/Vol] 4.6 10*3/uL 4.4 - 11.3 [facility] [employer] [facility] Work Phone: Lipid Panelon 04-04-2022 Cholesterol [Mass/Vol] 173 mg/dL 0 - 199 [facility] Work Phone: Comment on above: . AGE [...] dosing. Cholesterol in HDL [Mass/Vol] 70.0 mg/dL [employer] [facility] Work Phone: Comment on above: . AGE VERY LOW LOW N ORMAL HIGH 0-19 Y < 35 < 40 40-45 ---- 20-24 Y ---- < 40 >45 ---- >24 Y ---- < 40 40-60 >60. Cholesterol in LDL [Mass/Vol] 76 mg/dL 0 - 99 [employer] [facility] Work Phone: Comment on above: . NEAR BORD AGE BRANDON RABLE OPTIMAL HIGH HIGH VERY HIGH 0-19 Y 0 - 109 --- 110-129 >/= 130 ---- 20-24 Y 0 - 119 --- 120-159 >/= 160 ---- >24 Y 0 - 99 100-129 130-159 160-189 >/=190. Cholesterol.total/Randa sterol in HDL [Mass ratio] 2.5 {ratio} [employer] [facility] Work Phone: Comment on above: REF VALUESDESIRABLE < 3.4HIGH RISK > 5.0 Triglyceride [Mass/Vol] 134 mg/dL 0 - 149 M [employer] [facility] Work Phone: Comment on above: . AGE [...] Lipid Panel 27 mg/dL 0 - 40 -[facility] Work Phone: No Panel Informationon 04-04 76 {mL/min/1.73m2} >90 -[facility] Work Phone: Comment on above: CALCULATIONS OF HAYDE MATED GFR ARE PERFORMED USING THE 2020 CKD-EPI STUDY REFIT EQUATION WITHOUT THE RACE VARIABLE FOR THE IDMS-TRACEABLE CREATININE METHODS.https://jasn.asnjournals.org/content/early/ ASN.7261597646 TSH - Thyroid Stimulating Ho monalisa, Serumon 04-04-2022 TSH Qn 1.34 m[IU]/L See Below [facility] Work Phone: Comment on above: Reference Range: 0.4 4 - 3.98 TSH testing is performed using different testing methodology at [facility] than at other [facility]. Direct result comparisons should only be made within the same method. CBC AND DIFFERENTIALon 03-13 DIFFERENTIAL SEE MANUAL DIFF Normal [facility] Comment on above: Performed By: #### C BCDF #### [address] [address] Erythrocyte distribution width (RBC) [Ratio] 13.8 % Normal 11.5 - 14.5 [facility] Comment on above: Performed By: #### C BCDF #### [address] [address] Hematocrit (Bld) [Volume fraction] 37.9 % Normal 36.0 - 46.0 [facility] Comment on above: Performed By: #### C BCDF #### [address] [address] Hemoglobin (Bld) [Mass/Vol] 12.8 g/dL Normal 12.0 - 16.0 [facility] Comment on above: Performed By: #### C BCDF #### [address] [address] MCHC (RBC) [Mass/Vol] 33.8 g/dL Normal 32.0 - 36.0 [facility] Comment on above: Performed By: #### C BCDF #### [address] [address] MCV (RBC) [Entitic vol] 91 fL Normal 80 - 100 [facility] Comment on above: Performed By: #### C BCDF #### [address] [address] NUCLEATED RBC 0.1 /100 WBC Normal [facility] Comment on above: Performed By: #### C BCDF #### [address] [address] Platelets (Bld) [#/Vol] 183 10*3/uL Normal 150 - 450 [facility] Comment on above: Performed By: #### C BCDF #### [place] [id number] RBC 4.18 x10E12/L Normal 4.00 - 5.20 [facility] Comment on above: Performed By: #### C BCDF #### [address] [address] WBC (Bld) [#/Vol] 5.0 10*3/uL Normal 4.4 - 11.3 [facility] Comment on above: Performed By: #### C BCDF #### [place] [id number] COMPREHENSIVE PANELon 2021 Albumin [Mass/Vol] 3.8 g/dL Normal 3.4 - 5.0 [facility] Comment on above: Performed By: #### C MP #### [place] [id number] ALP [Catalytic activity/Vol] 113 U/L Normal 33 - 136 [facility] Comment on above: Performed By: #### C MP #### [place] [id number] ALT [Catalytic activity/Vol] 27 U/L Normal 7 - 45 [facility] Comment on above: Result Comment: Paige ents treated with Sulfasalazine may generate falsely decreased results for ALT. Performed By: #### C MP #### [address] [address] Anion gap [Moles/Vol] 11 mmol/L Normal 10 - 20 [facility] Comment on above: Performed By: #### C MP #### [address] [address] AST [Catalytic activity/Vol] 16 U/L Normal 9 - 39 [facility] Comment on above: Performed By: #### C MP #### [address] [address] Bilirubin [Mass/Vol] 0.9 mg/dL Normal 0.0 - 1.2 [facility] Comment on above: Performed By: #### C MP #### [address] [address] Calcium [Mass/Vol] 8.7 mg/dL Normal 8.6 - 10.3 [facility] Comment on above: Performed By: #### C MP #### [address] [address] Chloride [Moles/Vol] 100 mmol/L Normal 98 - 107 [facility] Comment on above: Performed By: #### C MP #### [address] [address] Creatinine [Mass/Vol] 0.94 mg/dL Normal 0.50 - 1.05 [facility] Comment on above: Performed By: #### C MP #### [address] [address] GFR/1.73 sq M.predicted among non-blacks MDRD (S/P/Bld) [Vol rate/Area] 65 mL/min/{1.73_m2} Normal >90 [facility] Comment on above: Result Comment: CALC ULATIONS OF ESTIMATED GFR ARE PERFORMED USING THE 2020 CKD-EPI STUDY REFIT EQUATION WITHOUT THE RACE VARIABLE FOR THE IDMS-TRACEABLE CREATININE METHODS. https://jasn.asnjournals.org/content/early//ASN.2020 589867 Performed By: #### C MP #### [address] [address] Glucose [Mass/Vol] 136 mg/dL High 74 - 99 [facility] Comment on above: Performed By: #### C MP #### [address] [address] HCO3 (Bld) [Moles/Vol] 26 mmol/L Normal 21 - 32 [facility] Comment on above: Performed By: #### C MP #### [address] [address] Potassium [Moles/Vol] 3.9 mmol/L Normal 3.5 - 5.3 [facility] Comment on above: Performed By: #### C MP #### [address] [address] Protein [Mass/Vol] 6.9 g/dL Normal 6.4 - 8.2 [facility] Comment on above: Performed By: #### C MP #### [address] [address] Sodium [Moles/Vol] 133 mmol/L Low 136 - 145 [facility] Comment on above: Performed By: #### C MP #### [address] [address] Urea nitrogen [Mass/Vol] 12 mg/dL Normal 6 - 23 [facility] Comment on above: Performed By: #### C MP #### [address] [address] [address] HEAD WO CONTRASTon 2021 CT HEAD WO CONTRAST Patient Name: LOLA DREW STUDY: CT HEAD WO CONTRAST; 03/13/2022 10:35 am INDICATION: BITEMPORAL BOYER . COMPARISON: None ACCESSION NUMBER(S): [id number] ORDERING CLINICIAN: XOCHITL WILL TECHNIQUE: Noncontrast axial [...] Electronically signed by: RAMY GROSS MD Normal [facility] CT Head without Contraston 0 03-13-2022 CT Head limited WO contrast Normal [facility] Work Phone: Complete Blood Count + Diffe rentialon 03-13-2022 Erythrocyte distribution width (RBC) [Ratio] 13.8 % See Below [facility] [employer] [facility] Work Phone: Comment on above: Reference Range: 11. 5 - 14.5 Hematocrit (Bld) [Volume fraction] 37.9 % See Below [facility] Work Phone: Comment on above: Reference Range: 36. 0 - 46.0 Hemoglobin (Bld) [Mass/Vol] 12.8 g/dL See Below [facility] Work Phone: Comment on above: Reference Range: 12. 0 - 16.0 MCHC (RBC) [Mass/Vol] 33.8 g/dL See Below [facility] Work Phone: Comment on above: Reference Range: 32. 0 - 36.0 MCV (RBC) [Entitic vol] 91 fL 80 - 100 M [facility] Work Phone: Platelets (Bld) [#/Vol] 183 10*3/uL 150 - 450 [facility] [employer] [facility] Work Phone: RBC (Bld) [#/Vol] 4.18 {x10E12/L} See Below [facility] Work Phone: Comment on above: Reference Range: 4.0 0 - 5.20 WBC (Bld) [#/Vol] 5.0 10*3/uL 4.4 - 11.3 [facility] [employer] [facility] Work Phone: Complete Blood Count + Differential SEE MANUAL DIFF [facility] Work Phone: Complete Blood Count + Differential 0.1 {/100_WBC} -Medical [employer] [facility] Work Phone: Laboratory - Chemistry and C hemistry - challengeon 03-13-2022 Albumin BCP dye [Mass/Vol] 3.8 g/dL 3.4 - 5.[address] [facility]Medical [employer] [facility] Work Phone: ALP [Catalytic activity/Vol] 113 U/L 33 - [address] [facility] CENTERMedical [employer] [facility] Work Phone: ALT With P-5'-P [Catalytic activity/Vol] 27 U/L 7 - [address] [facility] Work Phone: Comment on above: Patients treated wit h Sulfasalazine may generate falsely decreased results for ALT. Anion gap [Moles/Vol] 11 mmol/L 10 - [address] [facility] Work Phone: AST With P-5'-P [Catalytic activity/Vol] 16 U/L 9 - [address] [facility] Work Phone: Bilirubin [Mass/Vol] 0.9 mg/dL 0.0 - 1.2 [facility] [employer] [facility] Work Phone: Calcium [Mass/Vol] 8.7 mg/dL 8.6 - 10.3 [facility] [employer] [facility] Work Phone: Chloride [Moles/Vol] 100 mmol/L 98 - 107 [facility] [employer] [facility] Work Phone: CO2 [Moles/Vol] 26 mmol/L 21 - 32 -Medica l [employer] [facility] Work Phone: Creatinine [Mass/Vol] 0.94 mg/dL See Below [facility] Work Phone: Comment on above: Reference Range: 0.5 0 - 1.05 Glucose [Mass/Vol] 136 mg/dL above high threshold 74 - [address] [facility]ENTERMedical [employer] [facility] Work Phone: Potassium [Moles/Vol] 3.9 mmol/L 3.5 - 5.3 [facility] Work Phone: Protein [Mass/Vol] 6.9 g/dL 6.4 - 8.2 -[facility] Work Phone: Sodium [Moles/Vol] 133 mmol/L below low threshold 136 - 145 -[facility] Work Phone: Urea nitrogen [Mass/Vol] 12 mg/dL 6 - 23 -[facility] Work Phone: Laboratory - Coagulationon 0 03-13-2022 INR Coag (PPP) [Relative time] 1.1 {INR} 0.9 - 1.1 -[facility] Work Phone: PT Coag (PPP) [Time] 13.0 s 9.8 - 13.4 [facility] Work Phone: Laboratory - Hematology and Cell countson 03-13-2022 Band form neutrophils/100 WBC (Bld) 2.1 % 0.0 - 5.0 -[facility] Work Phone: Basophils/100 WBC (Bld) 0.0 % 0.0 - 2.0 [facility] Work Phone: Lymphocytes/100 WBC (Bld) 4.2 % See Below [facility] Work Phone: Comment on above: Reference Range: 13. 0 - 44.0 Monocytes/100 WBC (Bld) 10.4 % 2.0 - 10.0 [facility] Work Phone: MANUAL DIFFERENTIALon 2021 % BAND NEUTROPHIL 2.1 % Normal 0.0 - 5.0 [facility] Comment on above: Performed By: #### M DIFF #### [place] [id number] [place] [address] % BASOPHIL 0.0 % Normal 0.0 - 2.0 [facility] Comment on above: Performed By: #### M DIFF #### [address] [address] % EOSINOPHIL 7.3 % Normal 0.0 - 6.0 [facility] Comment on above: Performed By: #### M DIFF #### [address] [address] % LYMPHOCYTE 4.2 % Normal 13.0 - 44.0 [facility] Comment on above: Performed By: #### M DIFF #### [address] [address] % MONOCYTE 10.4 % Normal 2.0 - 10.0 [facility] Comment on above: Performed By: #### M DIFF #### [address] [address] % SEG NEUTROPHIL 76.0 % Normal 40.0 - 80.0 [facility] Comment on above: Result Comment: Perc ent differential counts (%) should be interpreted in the context of the absolute cell counts (cells/L). Performed By: #### M DIFF #### [address] [address] ANC 3.91 x10E9/L Normal 1.60 - 5.50 [facility] Comment on above: Performed By: #### M DIFF #### [address] [address] BAND NEUTROPHIL 0.11 x10E9/L Normal 0.00 - 0.50 [facility] Comment on above: Performed By: #### M DIFF #### [address] [address] BASOPHIL 0.00 x10E9/L Normal 0.00 - 0.10 [facility] Comment on above: Performed By: #### M DIFF #### [address] [address] EOSINOPHIL 0.37 x10E9/L Normal 0.00 - 0.40 [facility] Comment on above: Performed By: #### M DIFF #### [address] [address] LYMPHOCYTE 0.21 x10E9/L Low 0.80 - 3.00 [facility] Comment on above: Performed By: #### M DIFF #### [id number] [place] [address] MONOCYTE 0.52 x10E9/L Normal 0.05 - 0.80 [facility] Comment on above: Performed By: #### M DIFF #### [address] [address] SEG NEUTROPHIL 3.80 x10E9/L Normal 1.60 - 5.00 [facility] Comment on above: Performed By: #### M DIFF #### [address] [address] No Panel Informationon 03-13 FEW -[facility] Work Phone: SEE BELOW [facility] Work Phone: 0.00 {x10E9/L} See Below -[facility] Work Phone: Comment on above: Reference Range: 0.0 0 - 0.10 0.37 {x10E9/L} See Below -Medical [employer] [facility] Work Phone: Comment on above: Reference Range: 0.0 0 - 0.40 0.52 {x10E9/L} See Below [facility]Medical [employer] [facility] Work Phone: Comment on above: Reference Range: 0.0 5 - 0.80 0.21 {x10E9/L} below low threshold See Below -[facility] Work Phone: Comment on above: Reference Range: 0.8 0 - 3.00 0.11 {x10E9/L} See Below [facility] CENTERContext [facility] Work Phone: Comment on above: Reference Range: 0.0 0 - 0.50 3.80 {x10E9/L} See Below [facility]Medical [employer] [facility] Work Phone: Comment on above: Reference Range: 1.6 0 - 5.00 3.91 {x10E9/L} See Below -[facility] Work Phone: Comment on above: Reference Range: 1.6 0 - 5.50 7.3 % 0.0 - 6.0 [employer] Work Phone: 76.0 % See Below [facility] Work Phone: Comment on above: Reference Range: 40. 0 - 80.0 Percent differential counts (%) should be interpreted in the context of the absolute cell counts (cells/L). 65 {mL/min/1.73m2} >90 [facility] Work Phone: Comment on above: CALCULATIONS OF HAYDE MATED GFR ARE PERFORMED USING THE 2020 CKD-EPI STUDY REFIT EQUATION WITHOUT THE RACE VARIABLE FOR THE IDMS-TRACEABLE CREATININE METHODS.https://jasn.asnjournals.org/content// ASN.0517906534 PT/INRon 03-13-2022 PT Coag (PPP) [Time] 13.0 s Normal 9.8 - 13.4 [facility] Comment on above: Performed By: #### P TINR #### [place] [address] PT, INR 1.1 Normal 0.9 - 1.1 [facility] Comment on above: Performed By: #### P TINR #### [place] [address] Provider Note - ED v3on 03-03 Provider [...] (Z87.891) Patient has active durable power of deputy commonwealth's attorney (DPOA) designee for healthcare Patient has [...] Hg): 74 03-13-2022 09:17 PAST MEDICAL HISTORY ALLERGIES/INTOLERANCE S: Allergy Allergen: amoxicillin Type: Drug Reaction: Rash [...] tab(s) orally once a day Drug Name: [facility] oral tablet Instructions: 1 tab(s) orally [...] documented data. (more content not included)... Normal [facility] Provider Note - ED v3 This report has be en cancelled. Normal [facility] RED CELL MORPHOLOGYon 2021 GIANT PLATELETS FEW Normal [facility] Comment on above: Performed By: #### M ORP2 #### [place] [address] RBC morphology finding Nom (Bld) SEE BELOW [facility] Comment on above: Performed By: #### M ORP2 #### [address] [address] Risk Screen - Adult Emergenc yon 03-13-2022 Risk Screen - Adult Emergency Preferred Language: Preferred Language: Preferred Language for Discussing Health Care (patient/designee)Chris richey Advanced Directives: Advance Directive/DNRno Family Violence Adult: Abuse Screen: Are you or have you been threatened or abused physically, emotionally, or sexually by anyoneno Learning Assessment (Patient): Learning Assessment (Patient): Patient is Able to be Assessed for Learningyes Factors Influencing Readiness to Learnnone Factors that Impact Ability to Learnnone Devices/Methods Used to Communicatenone Learning Preferencesverbal instruction; written material Cultural Considerationsnone Developmental Considerationsnone Oriental Orthodox Considerationsnone Learning Assessment (Other Learner): Learning Assessment [...] an injured patient at a Trauma Center ([facility]/[place]/[place]): no Electronic Signatures: Hilda Hallman (SUPV) (Signed 13-Mar-2022 09:26) Authored: Preferred Language, Advanced Directives, Family Violence Adult, Learning Assessment (Patient), Learning Assessment (Other Learner), Pressure Injury/TB/Substance, Pressure Injury, CAGE Last Updated: 13-Mar-2022 09:26 by Hilda Hallman (SUPV) [facility] Triage - EDon 03-13-2022 Triage - ED [...] obeys commands Best Verbal Response: (V5) oriented Karuna Score: 15 Allergies: yes Patient has homicidal [...] Last Updated: 13-Mar-2022 09:26 by Hilda Hallman (SUP) [facility] Tobacco Screening.on 021 Fall risk assessment a) No falls within the last year [facility] Work Phone: Tobacco use status CP a) Yes M [facility] Work Phone: Tobacco Screening. Yes -Med [facility] [employer] [facility] Work Phone: Laboratory - Chemistry and C hemistry - challengeon 03-26-2021 Albumin BCP dye [Mass/Vol] 4.3 g/dL 3.4 - 5.0 [facility] Work Phone: ALP [Catalytic activity/Vol] 63 U/L 33 - 136 [employer] Work Phone: ALT With P-5'-P [Catalytic activity/Vol] 22 U/L 7 - [address] [facility] Work Phone: Comment on above: Patients treated wit h Sulfasalazine may generate falsely decreased results for ALT. Anion gap [Moles/Vol] 13 mmol/L 10 - [address] [facility] Work Phone: AST With P-5'-P [Catalytic activity/Vol] 19 U/L 9 - [address] [facility]ENTERMedical [facility] Work Phone: Bilirubin [Mass/Vol] 0.6 mg/dL 0.0 - 1.2 [facility] Work Phone: Calcium [Mass/Vol] 9.3 mg/dL 8.6 - 10.3 [facility] [employer] [facility] Work Phone: Chloride [Moles/Vol] 102 mmol/L 98 - 107 [facility] [employer] [facility] Work Phone: CO2 [Moles/Vol] 27 mmol/L 21 - 32 [facility] [employer] [facility] Work Phone: Creatinine [Mass/Vol] 0.98 mg/dL See Below [facility] Medical [employer] [facility] Work Phone: Comment on above: Reference Range: 0.5 0 - 1.05 Glucose [Mass/Vol] 113 mg/dL above high threshold 74 - [address] [facility]ENTER[facility] Work Phone: Potassium [Moles/Vol] 3.8 mmol/L 3.5 - 5.[address] [facility] Medical [employer] [facility] Work Phone: Protein [Mass/Vol] 7.0 g/dL 6.4 - 8.2 [facility] [employer] [facility] Work Phone: Sodium [Moles/Vol] 138 mmol/L 136 - 145 [facility] [employer] [facility] Work Phone: Urea nitrogen [Mass/Vol] 19 mg/dL 6 - [address] [facility]ENTERMedical [employer] [facility] Work Phone: Lipid Panelon 03-26-2021 Cholesterol [Mass/Vol] 180 mg/dL 0 - 199 [employer] Work Phone: Comment on above: . AGE [...] dosing. Cholesterol in HDL [Mass/Vol] 72.0 mg/dL [facility] Work Phone: Comment on above: . AGE VERY LOW LOW N ORMAL HIGH 0-19 Y < 35 < 40 40-45 ---- 20-24 Y ---- < 40 >45 ---- >24 Y ---- < 40 40-60 >60. Cholesterol in LDL [Mass/Vol] 91 mg/dL 0 - 99 [facility] Work Phone: Comment on above: . NEAR BORD AGE BRANDON RABLE OPTIMAL HIGH HIGH VERY HIGH 0-19 Y 0 - 109 --- 110-129 >/= 130 ---- 20-24 Y 0 - 119 --- 120-159 >/= 160 ---- >24 Y 0 - 99 100-129 130-159 160-189 >/=190. Cholesterol.total/Randa sterol in HDL [Mass ratio] 2.5 {ratio} [facility] Work Phone: Comment on above: REF VALUESDESIRABLE < 3.4HIGH RISK > 5.0 Triglyceride [Mass/Vol] 84 mg/dL 0 - 149 M [facility] Work Phone: Comment on above: . AGE [...] Lipid Panel 17 mg/dL 0 - 40 [employer] [facility] Work Phone: No Panel Informationon 03-26 68 {mL/min/1.73m2} >60 [facility] Work Phone: Comment on above: CALCULATIONS OF HAYDE MATED GFR ARE PERFORMED USING THE MDRD STUDY EQUATION FOR THE IDMS-TRACEABLE CREATININE METHODS. CLIN CHEM 2007;53:766-72 56 {mL/min/1.73m2} Abnormal >60 [facility] Work Phone: TSH - Thyroid Stimulating Tae Chanon 03-26-2021 TSH Qn 1.57 m[IU]/L See Below [facility] Work Phone: Comment on above: Reference Range: 0.4 4 - 3.98 TSH testing is performed using different testing methodology at [facility] than at other [facility] hospitals. Direct result comparisons should only be made within the same method. LINDA Mamm Screen w/CAD if perf ormed bilaton 02-16-2019 MA Mamm Screen w/CAD if performed bilat Exam Date/Time: 02/16/2019 14:36 EDT Reason for Exam: SCREENING;Screening Report STUDY: MA Mamm Screen w/CAD if performed bilat; 02/16/2019 2:36 pm ACCESSION NUMBER(S): [id number] ORDERING CLINICIAN: Steven Alfaro INDICATION: Screening. COMPARISON: 02/04/2017 FINDINGS: The breast tissue is almost entirely fatty. No suspicious masses or calcifications are identified. CAD was utilized. IMPRESSION: No mammographic evidence of malignancy. BI-RADS CATEGORY: Category: 2 - Benign Finding. Recommendation: Normal Interval Follow-up, Over Age 40. Recall Interval: 12 Months. Breast Density: Fatty. For any future breast imaging appointments, please call [phone]). FINAL REPORT Dictated: 02/16/2019 4:32 pm Prosper Ortega MD Signed (Electronic Signature): 02/16/2019 4:32 pm Signed by: Prosper Ortega MD Technologist: RUTH Assessment: BI-RADS Category 2-Benign finding Recommendation: Normal interval follow-up Normal [facility] Auto Diffon 02-08-2019 Basophils (Bld) [#/Vol] 0.0 E3/mcL Normal 0.0-0.2 [facility] Comment on above: Order Comment: Order Added by Discern Expert. Performed By: #### 2 [id number] #### [employer] [facility] [place] [address] Basophils/100 WBC (Bld) 0.8 % Normal 0.0-2.0 [facility] Comment on above: Order Comment: Order Added by Discern Expert. Performed By: #### 2 [id number] #### [employer] [address] [place] [address] Eos Absolute 0.3 E3/mcL Normal 0.0-0.7 [facility] Comment on above: Order Comment: Order Added by Discern Expert. Performed By: #### 2 [id number] #### [employer] [address] [place] [address] Eosinophils/100 WBC (Bld) 6.2 % Normal 0.0-11.0 [facility] Comment on above: Order Comment: Order Added by Discern Expert. Performed By: #### 2 [id number] #### [employer] [address] [place] [address] Lymphocytes (Bld) [#/Vol] 1.9 E3/mcL Normal 1.2-3.4 [facility] Comment on above: Order Comment: Order Added by Discern Expert. Performed By: #### 2 [id number] #### [employer] [address] [place] [address] Lymphocytes/100 WBC (Bld) 35.9 % Normal 20.0-55.0 [facility] Comment on above: Order Comment: Order Added by Discern Expert. Performed By: #### 2 [id number] #### [employer] [address] [place] [address] Bertie Absolute 0.4 E3/mcL Normal 0.0-0.7 [facility] Comment on above: Order Comment: Order Added by Discern Expert. Performed By: #### 2 [id number] #### [employer] [address] [place] [address] Monocytes/100 WBC (Bld) 6.9 % Normal 0.0-10.0 [facility] Comment on above: Order Comment: Order Added by Discern Expert. Performed By: #### 2 [id number] #### [employer] [address] [place] [address] Neutro Absolute 2.6 E3/mcL Normal 1.4-6.5 [facility] Comment on above: Order Comment: Order Added by Discern Expert. Performed By: #### 2 [id number] #### [employer] [address] [place] [address] Neutro Auto 50.2 % Normal 37.0-75.0 [facility] Comment on above: Order Comment: Order Added by Discern Expert. Performed By: #### 2 [id number] #### [employer] [address] [place] [address] CBC w/ Auto Diffon 9 Erythrocyte distribution width (RBC) [Ratio] 13.3 % Normal 11.5-14.5 [facility] Comment on above: Performed By: #### 2 [id number] #### [employer] [address] [place] [address] Hematocrit (Bld) [Volume fraction] 38.3 % Normal 36.0-48.0 [facility] Comment on above: Performed By: #### 2 [id number] #### [employer] [address] [place] [address] Hemoglobin (Bld) [Mass/Vol] 13.1 g/dL Normal 12.0-16.0 [facility] Comment on above: Performed By: #### 2 [id number] #### [employer] [address] [place] [address] MCH (RBC) [Entitic mass] 32.1 pg High 27.0-31.0 [facility] Comment on above: Performed By: #### 2 [id number] #### [employer] [address] [place] [address] MCHC (RBC) [Mass/Vol] 34.2 g/dL Normal 33.0-37.0 [facility] Comment on above: Performed By: #### 2 [id number] #### [employer] [address] [place] [address] MCV (RBC) [Entitic vol] 93.7 fL Normal 78.0-100.0 [facility] Comment on above: Performed By: #### 2 [id number] #### [employer] [address] [place] [address] Platelet mean volume (Bld) [Entitic vol] 9.6 fL Normal 7.4-11.0 [facility] Comment on above: Performed By: #### 2 [id number] #### [employer] [address] [place] [address] Platelets (Bld) [#/Vol] 168 E3/mcL Normal 130-400 [facility] Comment on above: Performed By: #### 2 [id number] #### [employer] [address] [place] [address] RBC (Bld) [#/Vol] 4.09 E6/mcL Normal 3.90-5.40 [facility] Comment on above: Performed By: #### 2 [id number] #### [employer] [address] [place] [address] WBC (Bld) [#/Vol] 5.2 E3/mcL Normal 3.6-11.0 [facility] Comment on above: Performed By: #### 2 [id number] #### [employer] [address] [place] [address] CMPon 02-08-2019 Albumin [Mass/Vol] 4.0 g/dL Normal 3.4-5.0 [facility] Comment on above: Performed By: #### 2 [id number] #### [facility] [employer] [address] [place] [address] Albumin/Globulin [Mass ratio] 2.0 {ratio} High 1.1-1.9 [facility] Comment on above: Performed By: #### 2 [id number] #### [facility] [employer] [address] [place] [address] Alk Phos 56 Int._Unit/L Normal 33-136 [facility] Comment on above: Performed By: #### 2 [id number] #### [facility] [employer] [address] [place] [address] ALT [Catalytic activity/Vol] 21 Int._Unit/L Normal 7-45 [facility] Comment on above: Performed By: #### 2 [id number] #### [facility] [employer] [address] [place] [address] Anion gap [Moles/Vol] 9 mmol/L Low 10-20 [facility] Comment on above: Performed By: #### 2 [id number] #### [facility] [employer] [address] [place] [address] AST [Catalytic activity/Vol] 17 Int._Unit/L Normal 9-39 [facility] Comment on above: Performed By: #### 2 [id number] #### [facility] [employer] [address] [place] [address] Bili Total 0.71 mg/dL Normal 0.00-1.20 [facility] Comment on above: Performed By: #### 2 [id number] #### [facility] [employer] [address] [place] [address] Calcium [Mass/Vol] 9.4 mg/dL Normal 8.6-10.3 [facility] Comment on above: Performed By: #### 2 [id number] #### [facility] [employer] [address] [place] [address] Chloride [Moles/Vol] 106 mmol/L Normal 98-107 [facility] Comment on above: Performed By: #### 2 [id number] #### [facility] [employer] [address] [place] [address] CO2 [Moles/Vol] 30.0 mmol/L Normal 21.0-32.0 [facility] Comment on above: Performed By: #### 2 [id number] #### [employer] [address] [place] [address] Creatinine [Mass/Vol] 0.9 mg/dL Normal 0.5-1.1 [facility] Comment on above: Performed By: #### 2 068883 #### [employer] [address] [place] [address] Globulin (S) [Mass/Vol] 2.0 g/dL Normal 2.0-4.0 [facility] Comment on above: Performed By: #### 2 695454 #### [employer] [address] [place] [address] Glucose [Mass/Vol] 116 mg/dL High 70-99 [facility] Comment on above: Performed By: #### 2 054841 #### [employer] [address] [place] [address] Potassium [Moles/Vol] 4.0 mmol/L Normal 3.5-5.3 [facility] Comment on above: Performed By: #### 2 [id number] #### [employer] [address] [place] [address] Protein [Mass/Vol] 6.0 g/dL Low 6.4-8.2 [facility] Comment on above: Performed By: #### 2 [id number] #### [employer] [address] [place] [address] Sodium [Moles/Vol] 141 mmol/L Normal 136-145 [facility] Comment on above: Performed By: #### 2 [id number] #### [employer] [address] [place] [address] Urea nitrogen [Mass/Vol] 13 mg/dL Normal 6-23 [facility] Comment on above: Performed By: #### 2 [id number] #### [employer] [address] [place] [address] Urea nitrogen/Creatinine [Mass ratio] 14.4 ratio Normal 5.4-30.0 [facility] Comment on above: Performed By: #### 2 [id number] #### [employer] [address] [place] [address] Lipid Profileon 02-08-2019 Cholesterol [Mass/Vol] 151 mg/dL Normal 0-199 [facility] Comment on above: Result Comment: TOTA L CHOLEESTEROL: <200 NORMAL 200 - 239 BORDERLINE HIGH >240 HIGH Performed By: #### 3 [id number] #### [employer] [facility] [place] [address] Cholesterol in HDL [Mass/Vol] 65 mg/dL High 40-60 [facility] Comment on above: Performed By: #### 3 [id number] #### [employer] [facility] [place] [address] Cholesterol in LDL [Mass/Vol] 62 mg/dL Normal 0-130 [facility] Comment on above: Result Comment: <100 OPTIMAL 100-129 NEAR / ABOVE OPTIMAL 130-159 BORDERLINE HIGH 160-189 HIGH >190 VERY HIGH CALC LDL NOT VALID WHEN TRIGLYCERIDE IS >400 MG/DL Performed By: #### 3 [id number] #### [employer] [address] [place] [address] Cholesterol in VLDL [Mass/Vol] 24 mg/dL Normal 0-40 [facility] Comment on above: Performed By: #### 3 [id number] #### [employer] [address] [place] [address] Triglyceride [Mass/Vol] 122 mg/dL Normal 0-149 [facility] Comment on above: Result Comment: AGE DESIRABLE BORDERLINE HIGH 91 D - 9 Y 0 - 74 75 - 99 > 100 10 - 19 Y 0 - 89 90 - 129 > 130 20 -24 Y 0 - 114 115 - 149 > 150 > 25 0 - 149 150 - 199 200 - 499 Performed By: #### 3 [id number] #### [employer] [facility] [place] [address] TSHon 02-08-2019 TSH Qn 0.56 mcIU/mL Normal 0.30-5.60 [facility] Comment on above: Performed By: #### 2 [id number] #### [employer] [facility] [place] [address] eGFRon 02-08-2019 GFR/1.73 sq M predicted among non-blacks MDRD (S/P/Bld) [Vol rate/Area] mL/min/{1.73_m2} Normal [facility] Comment on above: Order Comment: Order added by Discern Expert. Performed By: #### 1 [id number] #### [employer] [facility] [place] [id number] Vital Signs Date Time Vital Sign Value Performing Clinician [facility] 06-27-2025 15:19-0400 Body height 162.6 cm Jens Ibanez MD Work Phone: [facility] 06-27-2025 15:19-0400 Body mass index (BMI) [Ratio] 39.99 kg/m2 Jens Ibanez MD Work Phone: [facility] 06-27-2025 15:19-0400 Body weight 105.69 kg Jens Ibanez MD Work Phone: [facility] 06-27-2025 15:19-0400 Diastolic blood pressure 66 mm[Hg] Jens Ibanez MD Work Phone: [facility] 06-27-2025 15:19-0400 Heart rate 61 /min Jens Ibanez MD Work Phone: [facility] 06-27-2025 15:19-0400 SaO2% (BldA) [Mass fraction] 96 % Jens Ibanez MD Work Phone: [facility] 06-27-2025 15:19-0400 Systolic blood pressure 121 mm[Hg] Jens Ibanez MD Work Phone: [facility] 05-25-2025 13:45-0400 Body height 162.6 cm Sara Alvarez MD Work Phone: [facility] 05-25-2025 13:45-0400 Body mass index (BMI) [Ratio] 40.18 kg/m2 Sara Alvarez MD Work Phone: [facility] 05-25-2025 13:45-0400 Body temperature 98.29 [degF] Sara Alvarez MD Work Phone: [facility] 05-25-2025 13:45-0400 Body weight 106.19 kg Sara Alvarez MD Work Phone: [facility] 05-25-2025 13:45-0400 Diastolic blood pressure 81 mm[Hg] Sara Alvarez MD Work Phone: [facility] 05-25-2025 13:45-0400 Heart rate 59 /min Sara Alvarez MD Work Phone: [facility] 05-25-2025 13:45-0400 Respiratory rate 16 /min Sara Alvarez MD Work Phone: [facility] 05-25-2025 13:45-0400 SaO2% (BldA) [Mass fraction] 93 % Sara Alvarez MD Work Phone: [facility] 05-25-2025 13:45-0400 Systolic blood pressure 136 mm[Hg] Sara Alvarez MD Work Phone: [facility] 05-13-2025 08:02-0400 Body height 162.[address] Steven Alfaro MD Work Phone: [facility] 05-13-2025 08:02-0400 Body mass index (BMI) [Ratio] 40.6 kg/m2 Dr. Steven Alfaro MD Work Phone: [facility] 05-13-2025 08:02-0400 Body temperature 97.1 [degF] Dr. Steven Alfaro MD Work Phone: [facility] 05-13-2025 08:02-0400 Body weight 107.[address] Steven Alfaro MD Work Phone: [facility] 05-13-2025 08:02-0400 Diastolic blood pressure 93 mm[Hg] Dr. Steven Alfaro MD Work Phone: [facility] 05-13-2025 08:02-0400 Heart rate 63 /min Dr. Steven Alfaro MD Work Phone: [facility] 05-13-2025 08:02-0400 Respiratory rate 18 /min Dr. Steven Alfaro MD Work Phone: [facility] 05-13-2025 08:02-0400 SaO2% (BldA) [Mass fraction] 96 % Dr. Steven Alfaro MD Work Phone: [facility] 05-13-2025 08:02-0400 Systolic blood pressure 148 mm[Hg] Dr. Steven Alafro MD Work Phone: [facility] 04-19-2025 10:30-0400 Body height 162.6 cm Елена Shank [facility] [employer] Work Phone: [facility] 04-19-2025 10:30-0400 Body mass index (BMI) [Ratio] 40.05 kg/m2 Елена Shank [facility] [employer] Work Phone: [facility] 04-19-2025 10:30-0400 Body temperature 98.2 [degF] Елена Shank [facility] [employer] Work Phone: [facility] 04-19-2025 10:30-0400 Body weight 105.82 kg [facility]а [facility] Work Phone: [facility] 04-19-2025 10:30-0400 Diastolic blood pressure 60 mm[Hg] [facility] Work Phone: [facility] 04-19-2025 10:30-0400 Heart rate 72 /min [facility] Work Phone: [facility] 04-19-2025 10:30-0400 Respiratory rate 18 /min [facility] Work Phone: [facility] 04-19-2025 10:30-0400 SaO2% (BldA) [Mass fraction] 95 % [facility] Work Phone: [facility] 04-19-2025 10:30-0400 Systolic blood pressure 122 mm[Hg] [facility] Work Phone: [facility] 04-01-2025 09:29-0400 Body height 162.6 cm Sara Alvarez MD Work Phone: [facility] 04-01-2025 09:29-0400 Body mass index (BMI) [Ratio] 40.85 kg/m2 Sara Alvarez MD Work Phone: [facility] 04-01-2025 09:29-0400 Body temperature 98.29 [degF] Sara Alvarez MD Work Phone: [facility] 04-01-2025 09:29-0400 Body weight 107.96 kg Sara Alvarez MD Work Phone: [facility] 04-01-2025 09:29-0400 Diastolic blood pressure 84 mm[Hg] Sara Alvarez MD Work Phone: [facility] 04-01-2025 09:29-0400 Heart rate 67 /min Sara Alvarez MD Work Phone: [facility] 04-01-2025 09:29-0400 Respiratory rate 16 /min Sara Alvarez MD Work Phone: [facility] 04-01-2025 09:29-0400 SaO2% (BldA) [Mass fraction] 93 % Sara Alvarez MD Work Phone: [facility] 04-01-2025 09:29-0400 Systolic blood pressure 143 mm[Hg] Sara Alvarez MD Work Phone: [facility] 03-10-2025 11:48-0400 Body height 162.6 cm Diana Wilda DO Work Phone: [facility] 03-10-2025 11:48-0400 Body mass index (BMI) [Ratio] 40.25 kg/m2 Diana Wilda DO Work Phone: [facility] 03-10-2025 11:48-0400 Body temperature 98.91 [degF] Diana Wilda DO Work Phone: [facility] 03-10-2025 11:48-0400 Body weight 106.37 kg Diana Wilda DO Work Phone: [facility] 03-10-2025 11:48-0400 Diastolic blood pressure 61 mm[Hg] Diana Wilda DO Work Phone: [facility] 03-10-2025 11:48-0400 Heart rate 68 /min Diana Wilda DO Work Phone: [facility] 03-10-2025 11:48-0400 SaO2% (BldA) [Mass fraction] 93 % Diana Wilda DO Work Phone: [facility] 03-10-2025 11:48-0400 Systolic blood pressure 114 mm[Hg] Diana Wilda DO Work Phone: [facility] 02-16-2025 10:41-0400 Body height 162.6 cm Rogelio [facility]anda [facility] Work Phone: [facility] 02-16-2025 10:41-0400 Body mass index (BMI) [Ratio] 40.87 kg/m2 Rogelio Panda [facility] Work Phone: [facility] 02-16-2025 10:41-0400 Body temperature 98.1 [degF] Rogelio Panda [facility] Work Phone: [facility] 02-16-2025 10:41-0400 Body weight 108 kg Rogelio Panda [facility]IST Work Phone: [facility] 02-16-2025 10:41-0400 Diastolic blood pressure 60 mm[Hg] Rogelio Panda [facility] Work Phone: [facility] 02-16-2025 10:41-0400 Heart rate 53 /min Rogelio Panda [facility] Work Phone: [facility] 02-16-2025 10:41-0400 SaO2% (BldA) [Mass fraction] 94 % Rogelio Panda [facility]IST Work Phone: [facility] 02-16-2025 10:41-0400 Systolic blood pressure 118 mm[Hg] Rogelio Panda [facility] Work Phone: [facility] 02-10-2025 13:44-0400 Body height 162.6 cm [facility]а [facility]ne [facility] Work Phone: [facility] 02-10-2025 13:44-0400 Body mass index (BMI) [Ratio] 40.66 kg/m2 Елена [facility]ffen [facility] Work Phone: [facility] 02-10-2025 13:44-0400 Body temperature 98.01 [degF] Елена [facility]ffen [facility] Work Phone: [facility] 02-10-2025 13:44-0400 Body weight 107.46 kg [facility]а [facility] Work Phone: [facility] 02-10-2025 13:44-0400 Diastolic blood pressure 71 mm[Hg] [facility] Work Phone: [facility] 02-10-2025 13:44-0400 Heart rate 59 /min [facility]а [facility] Work Phone: [facility] 02-10-2025 13:44-0400 Respiratory rate 18 /min [facility]а [facility] Work Phone: [facility] 02-10-2025 13:44-0400 SaO2% (BldA) [Mass fraction] 92 % [facility]лена Bourne [facility] Work Phone: [facility] 02-10-2025 13:44-0400 Systolic blood pressure 120 mm[Hg] [facility]а [facility]ffen [facility] Work Phone: [facility] 11-22-2024 13:37-0500 Body height 162.6 cm Sara Alvarez MD Work Phone: [facility] 11-22-2024 13:37-0500 Body mass index (BMI) [Ratio] 40.51 kg/m2 Sara Alvarez MD Work Phone: [facility] 11-22-2024 13:37-0500 Body temperature 98.2 [degF] Sara Alvarez MD Work Phone: [facility] 11-22-2024 13:37-0500 Body weight 107.05 kg Sara Alvarez MD Work Phone: [facility] 11-22-2024 13:37-0500 Diastolic blood pressure 73 mm[Hg] Sara Alvarez MD Work Phone: [facility] 11-22-2024 13:37-0500 Heart rate 59 /min Sara Alvarez MD Work Phone: [facility] 11-22-2024 13:37-0500 Respiratory rate 16 /min Sara Alvarez MD Work Phone: [facility] 11-22-2024 13:37-0500 SaO2% (BldA) [Mass fraction] 94 % Sara Alvarez MD Work Phone: [facility] 11-22-2024 13:37-0500 Systolic blood pressure 131 mm[Hg] Sara Alvarez MD Work Phone: [facility] 11-17-2024 10:31-0500 Body height 162.6 cm Rogelio Panda CNP Work Phone: [facility] 11-17-2024 10:31-0500 Body mass index (BMI) [Ratio] 40.61 kg/m2 Rogelio Panda CNP Work Phone: [facility] 11-17-2024 10:31-0500 Body temperature 97.59 [degF] Rogelio Panda CNP Work Phone: [facility] 11-17-2024 10:31-0500 Body weight 107.32 kg Rogelio Panda CNP Work Phone: [facility] 11-17-2024 10:31-0500 Diastolic blood pressure 75 mm[Hg] Rogelio Panda CNP Work Phone: [facility] 11-17-2024 10:31-0500 Heart rate 58 /min Rogelio Panda CNP Work Phone: [facility] 11-17-2024 10:31-0500 SaO2% (BldA) [Mass fraction] 95 % Rogelio Panda CNP Work Phone: [facility] 11-17-2024 10:31-0500 Systolic blood pressure 124 mm[Hg] Rogelio Panda CNP Work Phone: [facility] 10-28-2024 11:17-0500 Body height 162.6 cm Sara Alvarez MD Work Phone: [facility] 10-28-2024 11:17-0500 Body mass index (BMI) [Ratio] 40.34 kg/m2 Sara Alvarez MD Work Phone: [facility] 10-28-2024 11:17-0500 Body temperature 97.81 [degF] Sara Alvarez MD Work Phone: [facility] 10-28-2024 11:17-0500 Body weight 106.59 kg Sara Alvarez MD Work Phone: [facility] 10-28-2024 11:17-0500 Diastolic blood pressure 76 mm[Hg] Sara Alvarez MD Work Phone: [facility] 10-28-2024 11:17-0500 Heart rate 74 /min Sara Alvarez MD Work Phone: [facility] 10-28-2024 11:17-0500 Respiratory rate 16 /min Sara Alvarez MD Work Phone: [facility] 10-28-2024 11:17-0500 SaO2% (BldA) [Mass fraction] 95 % Sara Alvarez MD Work Phone: [facility] 10-28-2024 11:17-0500 Systolic blood pressure 131 mm[Hg] Sara Alvarez MD Work Phone: [facility] 10-20-2024 11:41-0500 Diastolic blood pressure 86 mm[Hg] Elicia Miles MD Work Phone: [facility] 10-20-2024 11:41-0500 Heart rate 64 /min Elicia Miles MD Work Phone: [facility] 10-20-2024 11:41-0500 Systolic blood pressure 108 mm[Hg] Elicia Miles MD Work Phone: [facility] 10-20-2024 08:35-0500 Body temperature 97.5 [degF] Elicia Miles MD Work Phone: [facility] 10-20-2024 08:35-0500 Respiratory rate 16 /min Elicia Miles MD Work Phone: [facility] 10-20-2024 08:35-0500 SaO2% (BldA) [Mass fraction] 95 % Elicia Miles MD Work Phone: [facility] 10-19-2024 13:48-0500 Body height 162.6 cm Elicia Miles MD Work Phone: [facility] 10-19-2024 13:48-0500 Body mass index (BMI) [Ratio] 40.45 kg/m2 Elicia Miles MD Work Phone: [facility] 10-19-2024 13:48-0500 Body weight 106.9 kg Elicia Miles MD Work Phone: [facility] 10-18-2024 09:46-0500 Body height 162.6 cm Jens Ibanez MD Work Phone: [facility] 10-18-2024 09:46-0500 Body mass index (BMI) [Ratio] 41.37 kg/m2 Jens Ibanez MD Work Phone: [facility] 10-18-2024 09:46-0500 Body weight 109.32 kg Jens Ibanez MD Work Phone: [facility] 10-18-2024 09:46-0500 Diastolic blood pressure 85 mm[Hg] Jens Ibanez MD Work Phone: [facility] 10-18-2024 09:46-0500 Heart rate 65 /min Jens Ibanez MD Work Phone: [facility] 10-18-2024 09:46-0500 SaO2% (BldA) [Mass fraction] 95 % Jens Ibanez MD Work Phone: [facility] 10-18-2024 09:46-0500 Systolic blood pressure 125 mm[Hg] Jens Ibanez MD Work Phone: [facility] 09-16-2024 13:38-0500 Body height 162.6 cm [facility] Work Phone: [facility] 09-16-2024 13:38-0500 Body mass index (BMI) [Ratio] 40.89 kg/m2 [facility] Work Phone: [facility] 09-16-2024 13:38-0500 Body temperature 98.2 [degF] [facility] Work Phone: [facility] 09-16-2024 13:38-0500 Body weight 108.05 kg [facility]а [facility] Work Phone: [facility] 09-16-2024 13:38-0500 Diastolic blood pressure 92 mm[Hg] [facility]а [facility] Work Phone: [facility] 09-16-2024 13:38-0500 Heart rate 58 /min [facility]а [facility] Work Phone: [facility] 09-16-2024 13:38-0500 Respiratory rate 18 /min [facility]а [facility] Work Phone: [facility] 09-16-2024 13:38-0500 SaO2% (BldA) [Mass fraction] 98 % [facility] Work Phone: [facility] 09-16-2024 13:38-0500 Systolic blood pressure 148 mm[Hg] [facility]а [facility] Work Phone: [facility] 08-30-2024 09:58-0400 Body height 162.6 cm Rogelio Panda [facility] Work Phone: [facility] 08-30-2024 09:58-0400 Body mass index (BMI) [Ratio] 40.84 kg/m2 Rogelio Nathfield [facility] Work Phone: [facility] 08-30-2024 09:58-0400 Body temperature 98.01 [degF] Rogelio Panda [facility] Work Phone: [facility] 08-30-2024 09:58-0400 Body weight 107.91 kg Rogelio Panda [facility] Work Phone: [facility] 08-30-2024 09:58-0400 Diastolic blood pressure 78 mm[Hg] Rogelio Panda [facility] Work Phone: [facility] 08-30-2024 09:58-0400 Heart rate 60 /min Rogelio Panda [facility] Work Phone: [facility] 08-30-2024 09:58-0400 SaO2% (BldA) [Mass fraction] 95 % Rogelio Panda [facility] Work Phone: [facility] 08-30-2024 09:58-0400 Systolic blood pressure 125 mm[Hg] Rogelio Panda [facility] Work Phone: [facility] 07-13-2024 10:17-0400 Diastolic blood pressure 98 mm[Hg] Patricia Lozano MD Work Phone: [facility] 07-13-2024 10:17-0400 Heart rate 54 /min Patricia Lozano MD Work Phone: [facility] 07-13-2024 10:17-0400 SaO2% (BldA) [Mass fraction] 93 % Patricia Lozano MD Work Phone: [facility] 07-13-2024 10:17-0400 Systolic blood pressure 167 mm[Hg] Patricia Lozano MD Work Phone: [facility] 07-13-2024 10:15-0400 Body height 162.6 cm Patricia Lozano MD Work Phone: [facility] 07-13-2024 10:15-0400 Body mass index (BMI) [Ratio] 41.02 kg/m2 Patricia Lozano MD Work Phone: [facility] 07-13-2024 10:15-0400 Body temperature 98.49 [degF] Patricia Lozano MD Work Phone: [facility] 07-13-2024 10:15-0400 Body weight 108.41 kg Patricia Lozano MD Work Phone: [facility] 07-13-2024 10:15-0400 Respiratory rate 16 /min Patricia Lozano MD Work Phone: [facility] 04-12-2024 12:57-0400 Diastolic blood pressure 84 mm[Hg] Sara Alvarez MD Work Phone: [facility] 04-12-2024 12:57-0400 Heart rate 58 /min Sara Alvarez MD Work Phone: [facility] 04-12-2024 12:57-0400 Systolic blood pressure 129 mm[Hg] Sara Alvarez MD Work Phone: [facility] 04-12-2024 12:50-0400 Body height 162.6 cm Sara Alvarez MD Work Phone: [facility] 04-12-2024 12:50-0400 Body mass index (BMI) [Ratio] 39.99 kg/m2 Sara Alvarez MD Work Phone: [facility] 04-12-2024 12:50-0400 Body temperature 97.81 [degF] Sara Alvarez MD Work Phone: [facility] 04-12-2024 12:50-0400 Body weight 105.69 kg Sara Alvarez MD Work Phone: [facility] 04-12-2024 12:50-0400 Respiratory rate 16 /min Sara Alvarez MD Work Phone: [facility] 04-12-2024 12:50-0400 SaO2% (BldA) [Mass fraction] 93 % Sara Alvarez MD Work Phone: [facility] 11-17-2023 13:23-0500 Body height 162.6 cm Steven Alfaro MD Work Phone: [facility] 11-17-2023 13:23-0500 Body mass index (BMI) [Ratio] 41.61 kg/m2 Steven Alfaro MD Work Phone: [facility] 11-17-2023 13:23-0500 Body weight 109.95 kg Steven Alfaro MD Work Phone: [facility] 11-17-2023 13:23-0500 Diastolic blood pressure 72 mm[Hg] Steven Alfaro MD Work Phone: [facility] 11-17-2023 13:23-0500 Heart rate 68 /min Steven Alfaro MD Work Phone: [facility] 11-17-2023 13:23-0500 SaO2% (BldA) [Mass fraction] 92 % Steven Alfaro MD Work Phone: [facility] 11-17-2023 13:23-0500 Systolic blood pressure 126 mm[Hg] Steven Alfaro MD Work Phone: [facility] 2023 13:17-0400 Body height 162.6 cm Chris Grider MD Work Phone: [facility] 2023 13:17-0400 Body mass index (BMI) [Ratio] 40.68 kg/m2 Chris Grider MD Work Phone: [facility] 2023 13:17-0400 Body temperature 98.4 [degF] Chris Grider MD Work Phone: [facility] 2023 13:17-0400 Body weight 107.5 kg Chris Grider MD Work Phone: [facility] 05-15-2023 13:23-0400 Body height 162.6 cm Steven Alfaro MD Work Phone: [facility] 05-15-2023 13:23-0400 Body mass index (BMI) [Ratio] 40.22 kg/m2 Steven Alfaro MD Work Phone: [facility] 05-15-2023 13:23-0400 Body weight 106.28 kg Steven Alfaro MD Work Phone: [facility] 05-15-2023 13:23-0400 Diastolic blood pressure 72 mm[Hg] Steven Alfaro MD Work Phone: [facility] 05-15-2023 13:23-0400 Heart rate 64 /min Steven Alfaro MD Work Phone: [facility] 05-15-2023 13:23-0400 SaO2% (BldA) [Mass fraction] 98 % Steven Alfaro MD Work Phone: [facility] 05-15-2023 13:23-0400 Systolic blood pressure 119 mm[Hg] Steven Alfaro MD Work Phone: [facility] 11-12-2022 13:43-0500 Body height 162.56 cm Steven Alfaro Work Phone: [facility] Work Phone: 11-12-2022 13:43-0500 Body mass index (BMI) [Ratio] 40.18 kg/m2 Steven Alfaro Work Phone: [facility] Work Phone: 11-12-2022 13:43-0500 Body surface area Derived from formula 2.09 m2 Steven Alfaro Work Phone: [facility] Work Phone: 11-12-2022 13:43-0500 Body weight 106.17 kg Steven Alfaro Work Phone: [facility] Work Phone: 11-12-2022 13:43-0500 Diastolic blood pressure 78 mm[Hg] Steven Alfaro Work Phone: [facility] Work Phone: 11-12-2022 13:43-0500 Heart rate 70 /min Steven Alfaro Work Phone: [facility] [employer] Work Phone: 11-12-2022 13:43-0500 SaO2% (BldA) [Mass fraction] 95 % Steven Alfaro Work Phone: [facility] Work Phone: 11-12-2022 13:43-0500 Systolic blood pressure 122 mm[Hg] Steven Alfaro Work Phone: [facility] Work Phone: 04-12-2022 13:44-0400 Body height 162.56 cm Steven Alfaro Work Phone: [facility] Work Phone: 04-12-2022 13:44-0400 Body mass index (BMI) [Ratio] 40.51 kg/m2 Steven Alfaro Work Phone: [facility] Work Phone: 04-12-2022 13:44-0400 Body surface area Derived from formula 2.1 m2 Steven Alfaro Work Phone: [facility] Work Phone: 04-12-2022 13:44-0400 Body weight 107.05 kg Steven Alfaro Work Phone: [facility] Work Phone: 04-12-2022 13:44-0400 Diastolic blood pressure 78 mm[Hg] Steven Alfaro Work Phone: [facility] Work Phone: 04-12-2022 13:44-0400 Heart rate 58 /min Steven Alfaro Work Phone: [facility] Work Phone: 04-12-2022 13:44-0400 SaO2% (BldA) [Mass fraction] 94 % Steven Alfaro Work Phone: [facility] Work Phone: 04-12-2022 13:44-0400 Systolic blood pressure 120 mm[Hg] Steven Alfaro Work Phone: [facility] Work Phone: 03-13-2022 13:02-0400 Diastolic blood pressure 65 mm[Hg] Steven Alfaro Other Phone: [facility] 03-13-2022 13:02-0400 Heart rate 69 /min Steven Angelina Other Phone: [facility] 03-13-2022 13:02-0400 Respiratory rate 16 /min Steven Angelina Other Phone: [facility] 03-13-2022 13:02-0400 SaO2% (BldA) [Mass fraction] 96 % Steven Angelina Other Phone: [facility] 03-13-2022 13:02-0400 Systolic blood pressure 134 mm[Hg] Steven Alfaro Other Phone: [facility] 03-13-2022 11:17-0400 Body height 162.5 cm Steven Alfaro Other Phone: [facility] 03-13-2022 11:17-0400 Body temperature 96.8 [degF] Steven Alfaro Other Phone: [facility] 03-13-2022 11:17-0400 Body weight 105.9 kg Steven Alfaro Other Phone: [facility] 02-13-2022 11:18-0400 Body height 162.[address] Steven Alfaro Work Phone: [facility] Work Phone: 02-13-2022 11:18-0400 Body mass index (BMI) [Ratio] 40.6 kg/m2 Dr. Steven Alfaro Work Phone: [facility] Work Phone: 02-13-2022 11:18-0400 Body temperature 97.2 [degF] Dr. Steven Alfaro Work Phone: [facility] Work Phone: 02-13-2022 11:18-0400 Body weight 107.[address] Steven Alfaro Work Phone: [facility] Work Phone: 02-13-2022 11:18-0400 Diastolic blood pressure 74 mm[Hg] Dr. Steven Alfaro Work Phone: [facility] Work Phone: 02-13-2022 11:18-0400 Heart rate 58 /min Dr. Steven Alfaro Work Phone: [facility] Work Phone: 02-13-2022 11:18-0400 Respiratory rate 17 /min Dr. Steven Alfaro Work Phone: [facility] Work Phone: 02-13-2022 11:18-0400 SaO2% (BldA) [Mass fraction] 93 % Dr. Steven Alfaro Work Phone: [facility] Work Phone: 02-13-2022 11:18-0400 Systolic blood pressure 120 mm[Hg] Dr. Steven Alfaro Work Phone: [facility] Work Phone: 01-18-2022 10:41-0400 Body mass index (BMI) [Ratio] 40.3 kg/m2 Dr. Steven Alfaro Work Phone: [facility] Work Phone: 01-18-2022 10:41-0400 Body temperature 98.2 [degF] Dr. Steven Alfaro Work Phone: [facility] Work Phone: 01-18-2022 10:41-0400 Body weight 106.[address] Steven Alfaro Work Phone: [facility] Work Phone: 01-18-2022 10:41-0400 Diastolic blood pressure 59 mm[Hg] Dr. Steven Alfaro Work Phone: [facility] Work Phone: 01-18-2022 10:41-0400 Heart rate 60 /min Dr. Steven Alfaro Work Phone: [facility] Work Phone: 01-18-2022 10:41-0400 Respiratory rate 17 /min Dr. Steven Alfaro Work Phone: [facility] Work Phone: 01-18-2022 10:41-0400 SaO2% (BldA) [Mass fraction] 94 % Dr. Steven Alfaro Work Phone: [facility] Work Phone: 01-18-2022 10:41-0400 Systolic blood pressure 123 mm[Hg] Dr. Steven Alfaro Work Phone: [facility] Work Phone: 04-09-2021 13:58-0400 Body height 162.56 cm Stevengagan Alfaro Work Phone: [employer] [facility] Work Phone: 04-09-2021 13:58-0400 Body mass index (BMI) [Ratio] 41.98 kg/m2 Steven Alfaro Work Phone: [employer] [facility] Work Phone: 04-09-2021 13:58-0400 Body surface area Derived from formula 2.13 m2 Steven Alfaro Work Phone: [employer] [facility] Work Phone: 04-09-2021 13:58-0400 Body temperature 97.7 [degF] Steven Alfaro Work Phone: [employer] [facility] Work Phone: 04-09-2021 13:58-0400 Body weight 110.93 kg Steven Alfaro Work Phone: [employer] [facility] Work Phone: 04-09-2021 13:58-0400 Diastolic blood pressure 76 mm[Hg] Steven Alfaro Work Phone: [facility] Work Phone: 04-09-2021 13:58-0400 Heart rate 56 /min Steven Alfaro Work Phone: [facility] Work Phone: 04-09-2021 13:58-0400 SaO2% (BldA) [Mass fraction] 91 % Steven Alfaro Work Phone: [facility] Work Phone: 04-09-2021 13:58-0400 Systolic blood pressure 120 mm[Hg] Steven Alfaro Work Phone: [facility] Work Phone: 03-31-2020 10:47-0400 BMI (Body Mass Index) 40.37 kg/m2 Steven Alfaro [employer] Work Phone: 03-31-2020 10:47-0400 Body Temperature 95.7 [degF] Steven Alfaro [employer] [facility] Work Phone: 03-31-2020 10:47-0400 Body weight 106.68 kg Steven Alfaro -[facility] [employer] [facility] Work Phone: 03-31-2020 10:47-0400 BP Diastolic 72 mm[Hg] Steven Alfaro -[facility] Work Phone: 03-31-2020 10:47-0400 BP Systolic 120 mm[Hg] Steven Alfaro [facility] Work Phone: 03-31-2020 10:47-0400 BSA (Body Surface Area) 2.1 m2 Steven Alfaro [facility] [employer] [facility] Work Phone: 03-31-2020 10:47-0400 Height 162.56 cm Steven Alfaro -[facility] [employer] [employer] [facility] Work Phone: 03-31-2020 10:47-0400 Pulse (Heart Rate) 58 /min Steven Teixeirakael -Medical [facility] Work Phone: 03-31-2020 10:47-0400 Pulse Oximetry 96 % Steven Teixeirakael -[facility] Work Phone: Encounters Encounter Date Encounter Type Care Provider Facility Start: 07-07-2025 ambulatory Padma Pérez [facility] ty:[facility] Start: 06-27-2025 End: 06-27-2025 Office outpatient visit 15 minutes Jens Ibanez MD Work Phone: [facility] Comment on above: VTE (venous thromboe mbolism) (Primary Dx); Mixed hyperlipidemia Start: 06-27-2025 End: 06-27-2025 ambulatory SARA HELMS [facility] Ambulatory Start: 06-07-2025 End: 06-07-2025 Refill Sara Alvarez MD Work Phone: [facility] Start: 05-27-2025 End: 06-03-2025 Follow-up encounter Sara Alvarez MD Work Phone: [facility] Comment on above: Ultrasound duplex ve nous leg right, Sedimentation Rate, CBC and Differential, Additional followed-up results: 8 Start: 05-26-2025 End: 05-26-2025 Subsequent hospital visit by physician Eduardo Sapp 2 [facility] Comment on above: Pain in right leg; Pain in right lower leg Start: 05-26-2025 End: 05-26-2025 ambulatory SARA Jarvis [facility] Start: 05-25-2025 End: 05-25-2025 Office outpatient visit 25 minutes Sara Alvarez MD Work Phone: [facility] Comment on above: COPD with acute exac erbation (HCC) (Primary Dx); Vestibular migraine; COPD with asthma (HCC); Arthralgia, unspecified joint; Right leg pain; PE (pulmonary thromboembolism) ([facility]); Moderate recurrent major depression (HCC) Start: 05-25-2025 End: 05-25-2025 ambulatory SARA COKER [facility] Ambulatory Start: 05-18-2025 End: 05-18-2025 Patient encounter procedure Padma ARAIZA -Pulmonary Services/Neurology Work Phone: Start: 05-18-2025 End: 05-18-[address] Steven Alfaro MD Work Phone: -Pulmonary Services/Neurology Start: 05-18-2025 End: 05-18-2025 [facility] Start: 05-14-2025 End: 05-14-[address] Steven Alfaro MD Work Phone: -Laboratory Start: 05-14-2025 End: 05-14-2025 Patient encounter procedure Padma ARAIZA -Laboratory Work Phone: Start: 05-13-2025 End: 05-13-2025 Patient encounter procedure Padma ARAIZA -[place] [facility] Work Phone: Start: 05-13-2025 End: 05-14-[address] Steven Alfaro MD Work Phone: -[place] [facility] Start: 04-19-2025 End: 04-19-2025 Office outpatient visit 25 minutes Елена Bourne CNP Work Phone: [facility] Comment on above: COPD with acute exac erbation (HCC) (Primary Dx) Start: 04-19-2025 End: 04-19-2025 [facility] Start: 04-01-2025 End: 04-01-2025 ambulatory SARA COKER [facility] Ambulatory Start: 04-01-2025 End: 04-01-2025 Office outpatient visit 25 minutes Sara Alvarez MD Work Phone: [facility] Comment on above: Anxiety (Primary Dx) ; Gastroesophageal reflux disease, unspecified whether esophagitis present; Moderate major depression (HCC); Severe persistent asthma without complication; Mild major depression; Current moderate episode of major depressive disorder without prior episode (HCC); Chronic diastolic congestive heart failure (HCC) Start: 03-10-2025 End: 03-10-2025 Office outpatient visit 25 minutes Diana Beatty Work Phone: [facility] Comment on above: Upper respiratory tr act infection, unspecified type (Primary Dx); COPD with acute exacerbation (HCC) Start: 03-10-2025 End: 03-10-2025 ambulatory DIANA BEATTY [facility] Start: 02-16-2025 End: 02-16-2025 Office outpatient visit 15 minutes Rogelio Liam Panda HOSPITAL PRODUCT SPECIALIST Work Phone: [facility] Comment on above: PE (pulmonary thromb oembolism) (HCC) (Primary Dx); Acute deep vein thrombosis (DVT) of right peroneal vein (HCC); Nicotine dependence, cigarettes, in remission; COPD with asthma (HCC) Start: 02-16-2025 End: 02-16-2025 ambulatory ROGELIO Liam PANDA [facility] Start: 02-14-2025 End: 02-14-2025 [facility] Start: 02-10-2025 End: 02-10-2025 Office outpatient visit 25 minutes Елена Bourne CNP Work Phone: [facility] Comment on above: Acute non-recurrent maxillary sinusitis (Primary Dx); COPD with acute exacerbation (HCC) Start: 02-10-2025 End: 02-10-2025 ambulatory SARA HELMS [facility] Ambulatory Start: 01-11-2025 End: 01-11-2025 ambulatory Padma Pérez Facility:[facility] Start: 12-23-2024 ambulatory SARA ALEGRE [facility] Ambulatory Start: 11-22-2024 End: 11-22-2024 Office outpatient visit 25 minutes Sara Alvarez MD Work Phone: [facility] Comment on above: Seasonal [...] CPAP Start: 11-22-2024 End: 11-22-2024 [facility] Start: 11-17-2024 End: 11-17-2024 Office outpatient visit 15 minutes [facility] Work Phone: [facility] Comment on above: PE (pulmonary thromb oembolism) (HCC) (Primary Dx); Deep venous thrombosis (DVT) of right peroneal vein, unspecified chronicity (HCC); Nicotine dependence, cigarettes, in remission; COPD with asthma (HCC); Pulmonary nodules Start: 11-17-2024 End: 11-17-2024 ambulatory [facility] Start: 10-28-2024 End: 10-28-2024 Office outpatient visit 25 minutes aSra Alvarez MD Work Phone: [facility] Comment on above: At low risk for fall (Primary Dx); COPD with asthma (HCC); Cough, unspecified type; COPD with acute exacerbation (HCC) Start: 10-28-2024 End: 10-28-2024 [facility] Start: 10-21-2024 End: 10-21-2024 ambulatory Melissa Enrique RN [facility] Start: 10-19-2024 End: 10-20-2024 Emergency department patient visit Arnel Gan MD Work Phone: [facility] Medical Observation Start: 10-19-2024 End: 10-20-2024 ambulatory SARA [facility] Start: 10-18-2024 End: 10-18-2024 Office outpatient new 45 minutes Jens Ibanez MD Work Phone: [facility] Comment on above: Congestive heart joleen lure, unspecified HF chronicity, unspecified heart failure type (HCC) (Primary Dx); COPD with asthma (HCC); Shortness of breath; PE (pulmonary thromboembolism) (HCC); Pulmonary hypertension (HCC) Start: 10-18-2024 End: 10-18-2024 ambulatory JENS ROCHE QUEBECKKYRA [facility] Ambulatory Start: 09-16-2024 End: 09-16-2024 Office outpatient visit 25 minutes Елена Bourne HOSPITAL PRODUCT SPECIALIST Work Phone: [facility] Comment on above: 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); COPD with asthma (HCC) Start: 09-16-2024 End: 09-16-2024 Refill Sara Alvarez MD Work Phone: [facility] Start: 09-15-2024 End: 09-15-2024 ambulatory SARA COKER [facility] Start: 08-30-2024 End: 08-30-2024 Office outpatient new 45 minutes Rogelio Panda HOSPITAL PRODUCT SPECIALIST Work Phone: [facility] Comment on above: PE (pulmonary thromb oembolism) (HCC) (Primary Dx); Deep vein thrombosis of peroneal vein, right (HCC); Vaping nicotine dependence, non-tobacco product; COPD with asthma (HCC) Start: 08-30-2024 End: 08-30-2024 ambulatory SARA SHEELA [facility] Amb[facility] Start: 08-30-2024 End: 08-30-2024 ambulatory SARA [facility] Start: 08-14-2024 ambulatory SARA ALEGRE [facility] Ambulatory Start: 08-05-2024 End: 08-05-2024 ambulatory PROVIDER NOT IN SYSTEM [facility] Start: 08-04-2024 End: 08-04-2024 ambulatory SARA COKER [facility] Start: 08-03-2024 End: 08-03-2024 ambulatory SARA HELMS [facility] Ambulatory Start: 07-30-2024 End: 07-30-2024 Emergency department patient visit SARA COKER [facility] Start: 07-29-2024 End: 07-29-2024 ambulatory PATRICIA LOZANO [facility] Start: 07-25-2024 End: 07-27-2024 Evaluation and management of inpatient BOBY HELTON [facility] Start: 07-24-2024 End: 07-24-2024 Emergency department patient visit SARA COKER [facility] Start: 07-13-2024 End: 07-13-2024 Office outpatient new 45 minutes Patricia Lozano MD Work Phone: [facility] Comment on above: Acute bronchitis, un specified organism (Primary Dx); COPD with asthma (HCC); Simple chronic bronchitis (HCC); Seasonal allergies; Nicotine dependence, cigarettes, in remission; Vaping nicotine dependence, non-tobacco product; Shortness of breath; Wheezing; JOHNATHAN on CPAP Start: 07-13-2024 End: 07-13-2024 [facility] Start: 04-27-2024 End: 04-27-2024 Refill Sara Alvarez MD Work Phone: [facility] Start: 04-20-2024 End: 04-20-2024 ambulatory SARA COKER [facility] Start: 04-19-2024 ambulatory Yaneth NEUMANN [facility] Start: 04-15-2024 Orders Only Sara Alvarez MD Work Phone: [facility] Comment on above: COPD with asthma (HC C) (Primary Dx) Start: 04-13-2024 ambulatory Sherrie HERNANDES [facility] Start: 04-12-2024 End: 04-16-[address] [facility] Start: 04-12-2024 End: 04-12-2024 Office outpatient new 45 minutes Sara Alvarez MD Work Phone: [facility] Comment on above: COPD with asthma (HC C) (Primary Dx); Current moderate episode of major depressive disorder without prior episode (HCC); Severe obesity (HCC); Hyperlipidemia, unspecified hyperlipidemia type; COPD with acute exacerbation (HCC) Start: 11-17-2023 End: 11-17-2023 ambulatory [facility] Ambulatory Start: 11-17-2023 End: 11-17-2023 Office outpatient visit 25 minutes Steven Alfaro MD Work Phone: [facility] Comment on above: Chronic obstructive pulmonary disease, unspecified COPD type (CMS/HCC) (Primary Dx); Acquired hypothyroidism; Hyperglycemia; Current moderate episode of major depressive disorder without prior episode (CMS/HCC); Obstructive sleep apnea syndrome Start: 2023 End: 2023 Office outpatient new 45 minutes Chris Grider MD Work Phone: [facility] Comment on above: Vestibular migraine (Primary Dx); Impacted cerumen of right ear; Sebaceous cyst of ear; Sensorineural hearing loss, bilateral; Vertigo Start: 05-15-2023 End: 05-15-2023 ambulatory [facility] Ambulatory Start: 05-15-2023 End: 05-15-2023 Encounter for general adult medical examination without abnormal findings [facility] Ambulatory Start: 05-15-2023 End: 05-15-2023 Assay of hemosiderin, quant Steven Alfaro MD Work Phone: [facility] Work Phone: Start: 05-15-2023 End: 05-15-2023 Patient encounter procedure Steven Alfaro MD Work Phone: [facility] Comment on above: Routine general medi misti examination at health care facility (Primary Dx); Chronic obstructive pulmonary disease, unspecified COPD type (CMS/HCC); Hyperlipidemia, unspecified hyperlipidemia type; Gastroesophageal reflux disease, unspecified whether esophagitis present; Anxiety; Hyperglycemia; Hypothyroidism due to acquired atrophy of thyroid; Obstructive sleep apnea syndrome; Edema of both lower legs Start: 01-02-2023 AUDIT Steven Teixeira kael Work Phone: [facility] Work Phone: Start: 11-25-2022 AUDIT Steven Teixeira kael Work Phone: -[facility] Work Phone: Start: 11-12-2022 Office outpatient vi sit 25 minutes Steven Teixeirakael Work Phone: -Medical [employer] [facility] Work Phone: Start: 11-12-[address] Steven Rocha Lluviakael Facility:[id number] Start: 08-27-2022 AUDIT Steven Teixeira kael Work Phone: -Medical [employer] [facility] Work Phone: Start: 08-26-2022 End: 08-26-2022 ambulatory [facility] Work Phone: Start: 08-26-2022 End: 08-26-2022 Patient encounter procedure [facility]-Cat Scan, [facility] Start: 07-23-2022 AUDIT Steven Teixeira kael Work Phone: -Medical [employer] [facility] Work Phone: Start: 06-24-2022 AUDIT Steven Teixeira kael Work Phone: -Medical [employer] [facility] Work Phone: Start: 05-29-2022 AUDIT Steven Teixeira kael Work Phone: -Medical [employer] [facility] Work Phone: Start: 05-29-[address] Steven Diaz Facility:[id number] Start: 04-16-2022 AUDIT Steven Teixeira kael Work Phone: [facility] Work Phone: Start: 04-12-2022 Adv care pln/ no alt dcsn mkr docd or refusal Steven Teixeirakael Work Phone: [facility] [employer] [facility] Work Phone: Start: 04-04-2022 Chart Update Steven Teixeira kael Work Phone: [facility] [employer] [facility] Work Phone: Start: 03-13-2022 Patient encounter procedure Steven Alfaro Work Phone: [facility] [employer] [facility] Work Phone: Start: 03-13-2022 End: 03-13-2022 Emergency department patient visit Xochitl Will [facility] Start: 02-13-2022 End: 02-13-[address] [facility] Start: 02-06-2022 End: 02-06-[address] Steven Alfaro Work Phone: [facility]-Laboratory Start: 01-18-2022 End: 01-18-[address] Steven Alfaro Work Phone: [facility] Start: 09-03-2021 AUDIT Steven scruggs Work Phone: [facility] [employer] [facility] Work Phone: Start: 05-11-2021 AUDIT Steven scruggs Work Phone: [facility] [employer] [facility] Work Phone: Start: 04-11-2021 PH2 PULM F, Provider : [id number], Status: Pen, Time: 9:00 AM Steven Alfaro Work Phone: [facility] [employer] [facility] Work Phone: Start: 04-09-2021 Office outpatient vi sit 25 minutes Steven Alfaro Work Phone: [employer] [facility] Work Phone: Start: 03-28-2021 PH2 PULClarke F, Provider : [facility],[place] [id number], Status: Pen, Time: 9:00 AM Steven Alfaro Work Phone: [employer] [facility] Work Phone: Start: 03-26-2021 Chart Update Stveen scruggs Work Phone: [employer] [facility] Work Phone: Start: 03-31-2020 Patient encounter procedure Steven Alfaro [employer] [facility] Work Phone: Start: 10-18-2019 Patient encounter procedure Steven Alfaro [employer] [facility] Work Phone: Start: 09-17-2019 Patient encounter procedure Steven Alfaro [employer] [facility] Work Phone: Start: 08-17-2019 Patient encounter procedure Steven Alfaro [employer] [facility] Work Phone: Start: 11-13-2014 Adelaida Fernandes MD Work Phone: [facility] Physicians Patient encounter procedure Steven Alfaro Work Phone: [employer] [facility] Work Phone: Procedures Date Procedure Procedure Detail Performing Clinician Start: 05-26-2025 Dup-scan xtr veins unilateral/limited study Sara Alvarez MD Work Phone: Start: 05-25-2025 Lipid 1996 panel - S elizabeth or Plasma Eduardo 2 Start: 05-25-2025 Thyrotropin [Units/v olume] in Serum or Plasma Eduardo 2 Start: 05-14-2025 EXTERNAL LAB SCAN Sara Alvarez MD Work Phone: Start: 05-14-2025 Gram stain microscopy D r. Steven Furness MD Work Phone: Start: 05-14-[address] l culture Dr. Steven Alfaro MD Work Phone: Start: 05-14-[address] Steven Alfaro MD Work Phone: Start: 05-14-[address] Steven Alfaro MD Work Phone: Start: 05-14-2025 House dust mite (Df) RAST Dr. Steven Alfrao MD Work Phone: Start: 05-14-2025 Mouse urine proteins RAST Dr. Steven Alfaro MD Work Phone: Comment on above: Performed at: [address] [id number] Director: James Luther MD, Phone: [phone] Start: 05-14-2025 Plantain (Kyrgyz) RAST Dr. Steven Alfaro MD Work Phone: Start: 03-10-2025 Infectious agent dna /rna influenza 1st 2 types Diana Beatty DO Work Phone: Start: 03-10-2025 Sars-cov-2 detection by dna/rna Diana Beatty DO Work Phone: Start: 10-20-2024 Cta hrt cornry art/b ypass grfts contrst 3d post Kim Lyons HOSPITAL PRODUCT SPECIALIST Work Phone: Start: 10-20-2024 TTE w or wo fol wcon,Doppler Kylah Hendricks PA-[employer] Work Phone: Start: 10-20-2024 Basic metabolic pane l calcium total Kylah Hendricks PA-C Work Phone: Start: 10-19-2024 Electrocardiogram Gener ic [facility] Work Phone: Start: 10-19-2024 Assay of troponin quantitative Arnel Gan MD Work Phone: Start: 10-19-2024 Radiologic exam ches t single view Arnel Gan MD Work Phone: Start: 10-19-2024 Basic metabolic pane l calcium total Arnel Gan MD Work Phone: Start: 10-19-2024 Ecg routine ecg w/le ast 12 lds w/i&r Arnel Gan MD Work Phone: Start: 08-04-2024 Mammography Rogelio Sebastian ield HOSPITAL PRODUCT SPECIALIST Work Phone: Start: 11-17-2023 FOLLOW UP IN [...] Steven Alfaro Start: 03-31-2020 Lipid panel Steven arellano Start: 03-31-2020 MG Breast screening Tootie Alfaro Start: 05-18-2019 Colonoscopy Mayra pugh MD Work Phone: Start: 05-18-2019 Colonoscopy Steven Alfaro Work Phone: Comment on above: marilu, 5 years; Start: 08-30-2014 Mammography Mayra pugh MD Work Phone: Colonoscopy Steven Alfaro Cystoscopy Steven Alfaro H/O: hysterectomy History of par tial hysterectomy Dr. Steven Alfaro Work Phone: Hysterectomy Steven Alfaro Nasal septoplasty Steven arellano Tonsillectomy Steven glover Plan of Treatment Date Care Activity Detail Author Start: 05-29-2032 DTaP/Tdap/Td Vaccine s (4 - Td or Tdap) DTaP/Tdap/Td Vaccines (4 - Td or Tdap) [facility] Start: 05-29-2032 Tetanus vaccination Tetanus: Every 1 0yrs [facility] Start: 05-18-2029 Screening for malign ant neoplasm of colon [facility] Start: 05-07-2028 Lipid panel Lipid Panel [facility] Start: 08-16-2027 Screening for malign ant neoplasm of colon [facility] Start: 01-30-2026 Depression Remission Assessment (PHQ9) Depression Remission Assessment (PHQ9) [facility] Start: 10-27-2025 Fall risk assessment Falls Risk Asse ssment [facility] Start: 10-20-2025 Creatinine measurement Creatinine Le rudolph [facility] Start: 10-20-2025 Potassium measurement Potassium Leve l [facility] Start: 08-16-2025 End: 08-16-2025 Patient encounter procedure 08/16/2025 1:20 PM EDT Office Visit [facility] [address] [place] [address] Sara Alvarez MD [address] [place] [address] [facility] Start: 08-04-2025 Screening for malign ant neoplasm of breast Mammogram [facility] Start: 07-29-2025 Screening for malign ant neoplasm of lung Low-dose CT Lung Cancer Screen [facility] Start: 07-25-2025 Diabetes mellitus screening Diabetes Screening [facility] Start: 07-25-2025 Hemoglobin A1c measurement Diabetes: Hemoglobin A1C [facility] Start: 07-04-2025 Influenza vaccination Influenza Vacc ine (#1) [facility] Start: 06-27-2025 End: 06-27-2025 Patient encounter procedure 06/27/2025 3:20 PM EDT Office Visit [facility] [address] [facility] [place] [phone] Jens Ibanez MD [address] [place] [address] [facility] Start: 2025 Respiratory Syncytia l Virus Immunization: Risk, 60-74 Risk, or 75+ (1 - 1-dose 75+ series) Respiratory Syncytial Virus Immunization: Risk, 60-74 Risk, or 75+ (1 - 1-dose 75+ series) [facility] Start: 05-24-2025 End: 05-24-2025 Patient encounter procedure 05/24/2025 2:00 PM EDT Office Visit [facility] [address] [place] [address] Sara Alvarez MD [address] [address] [facility] Start: 04-12-2025 Thyroid stimulating hormone measurement TSH Level [facility] Start: 02-16-2025 End: 02-16-2025 Patient encounter procedure 02/16/2025 11:00 AM EDT Office Visit [facility] [address] [place] [address] Rogelio Panda, HOSPITAL PRODUCT SPECIALIST [address] [place] [id number] [facility] Start: 02-14-2025 End: 02-14-2025 Patient encounter procedure 02/14/2025 1:00 PM EDT Appointment [facility] [address] [place] [phone] Rogelio Panda, HOSPITAL PRODUCT SPECIALIST [address] [place] [address] [facility] Start: 02-10-2025 Depression Remission Assessment (PHQ9) Depression Remission Assessment (PHQ9) [facility] Start: 02-02-2025 COVID-19 Vaccine () COVID-19 Vaccine () [facility] Start: 11-22-2024 End: 11-22-2024 Patient encounter procedure 11/22/2024 1:40 PM EST Office Visit [facility] [address] [place] [address] Sara Alvarez MD [address] [address] [facility] Start: 11-01-2024 End: 11-01-2024 Patient encounter procedure 11/01/2024 10:15 AM EST Office Visit [facility] [address] [place] [address] [address] [place] [phone] Rogelio Panda CNP [address] [place], [place] [id number] [facility] Start: 10-28-2024 End: 10-28-2024 Patient encounter procedure 10/28/2024 7:00 AM EST Appointment [facility] [address] [place] [address] [place] [address] Jens Ibanez MD [address] [place], [place] [id number] [facility] Start: 10-25-2024 End: 12-19-2025 Echocardiography Echocardiogram complete Echocardiography Routine Congestive heart failure, unspecified HF chronicity, unspecified heart failure type (HCC) COPD with asthma (HCC) Shortness of breath Expected: 10/25/2024 (Approximate), Expires: 12/19/2025 [facility] Work Phone: Comment on above: Expected: 10/25/2024 (Approximate), Expires: 12/19/2025 Start: 10-22-2024 End: 10-29-2025 Ultrasound duplex venous leg right Ultrasound duplex venous leg right Vascular Ultrasound Routine PE (pulmonary thromboembolism) (HCC) Deep vein thrombosis of peroneal vein, right (HCC) Expected: 10/22/2024, Expires: 10/29/2025 [facility] Comment on above: Expected: 10/22/2024 , Expires: 10/29/2025 Start: 10-18-2024 End: 10-18-2024 Patient encounter procedure 10/18/2024 10:00 AM EST Office Visit [facility] [address], 3rd [place] [address] Jens Ibanez MD [address] [place] [address] [facility] Start: 10-12-2024 End: 10-12-2024 Patient encounter procedure 10/12/2024 1:00 PM EST Office Visit [facility] [address] [place] [address] Brianna Navarro, HOSPITAL PRODUCT SPECIALIST [address] [place] [address] [facility] Start: 09-29-2024 Administration of he rpes zoster vaccine Zoster Vaccines (3 of 3) [facility] Start: 08-30-2024 End: 08-29-2025 Factor V Leiden genotype Factor V (F5) Leiden Mutation ([id number]) Lab Routine PE (pulmonary thromboembolism) (HCC) Deep vein thrombosis of peroneal vein, right (HCC) Expected: 08/30/2024, Expires: 08/29/2025 [facility] Work Phone: Comment on above: Expected: 08/30/2024 , Expires: 08/29/2025 Start: 07-29-2024 End: 07-29-2024 Patient encounter procedure 07/29/2024 8:40 AM EDT Office Visit [facility] [address] [place] [address] Sara Alvarez MD [address] [address] [facility] Start: 07-04-2024 COVID-19 Vaccine ( season) COVID-19 Vaccine ( season) [facility] Start: 07-04-2024 COVID-19 Vaccine () COVID-19 Vaccine () [facility] Start: 07-04-2024 Influenza vaccination Influenza Vacc ine (#1) [facility] Start: 05-18-2024 End: 05-18-2024 Patient encounter procedure 05/18/2024 1:20 PM EDT Office Visit [facility] [address] [place] [address] Steven Alfaro MD [address] [place] [address] [facility] Start: 05-16-2024 Medicare Annual Well ness Visit Medicare Annual Wellness Visit (AWV) [facility] Start: 05-15-2024 History and physical examination, annual for health maintenance Wellness Visit [facility] Start: 05-15-2024 Medicare Wellness Visit Medicare Wel lness Visit [facility] Start: 05-14-2024 End: 05-14-2024 Patient encounter procedure 05/14/2024 10:00 AM EDT Office Visit [facility] [address] [place] [address] Patricia Lozano MD [address] [place] [address] [facility] Start: 05-07-2024 Thyroid stimulating hormone measurement TSH Level [facility] Start: 04-20-2024 End: 04-20-2024 Patient encounter procedure 04/20/2024 8:00 AM EDT Appointment [facility] [address] [place] [address] Sara Alvarez MD [address] [facility] [address] [place] [address] [facility] Start: 11-17-2023 End: 11-17-2023 Patient encounter procedure 11/17/2023 1:20 PM EST Office Visit [facility] [address] [place] [address] Steven Alfaro MD [address] [place] [address] [facility] Start: 09-15-2023 End: 09-15-2023 Patient encounter procedure 09/15/2023 1:00 PM EST Office Visit [facility] [address] [place] [address] Chris Grider MD [address] [place] [address] [address] [place] [address] [facility] Start: 08-26-2023 Screening for malign ant neoplasm of lung Low-dose CT Lung Cancer Screen [facility] Start: 07-04-2023 COVID-19 Vaccine ( season) COVID-19 Vaccine ( season) [facility] Start: 07-04-2023 Influenza vaccination [facility] Start: 05-15-2023 EPV, Provider: Steven Alfaro, Status: Pen, Time: 1:20 PM EPV, Provider: Steven Alfaro, Status: Pen, Time: 1:20 PM -[facility] Work Phone: Start: 05-15-2023 End: 05-15-2024 CBC panel - Blood by Automated count CBC Lab Routine Hyperglycemia Expected: 05/15/2023 (Approximate), Expires: 05/15/2024 [facility] Service Area Work Phone: Comment on above: Expected: 05/15/2023 (Approximate), Expires: 05/15/2024 Start: 05-15-2023 End: 05-15-2024 Comprehensive metabolic 2000 panel - Serum or Plasma Comprehensive Metabolic Panel Lab Routine Hyperglycemia Expected: 05/15/2023 (Approximate), Expires: 05/15/2024 [facility] Work Phone: Comment on above: Expected: 05/15/2023 (Approximate), Expires: 05/15/2024 Start: 05-15-2023 End: 05-15-2024 Hemoglobin A1c/Hemoglobin.total in Blood Hemoglobin A1C Lab Routine Hyperglycemia Expected: 05/15/2023 (Approximate), Expires: 05/15/2024 [facility] Work Phone: Comment on above: Expected: 05/15/2023 (Approximate), Expires: 05/15/2024 Start: 05-15-2023 End: 05-15-2024 Thyrotropin [Units/volume] in Serum or Plasma Thyroid Stimulating Hormone Lab Routine Hypothyroidism due to acquired atrophy of thyroid Expected: 05/15/2023 (Approximate), Expires: 05/15/2024 [facility] Work Phone: Comment on above: Expected: 05/15/2023 (Approximate), Expires: 05/15/2024 Start: 04-15-2023 Screening for malign ant neoplasm of breast Mammogram [facility] Start: 10-11-2022 EPV, Provider: Steven Alfaro, Status: Pen, Time: 1:40 PM EPV, Provider: Steven Alfaro, Status: Pen, Time: 1:40 PM [facility] Work Phone: Start: 10-09-2022 COVID-19 Vaccine (3 - Booster for Torey series) COVID-19 Vaccine (3 - Booster for Torey series) [facility] Start: 07-04-2022 Influenza vaccination Sequenti al Influenza Vaccine (#1) [facility] Start: 04-12-2022 Patient encounter procedure [facility] Start: 10-30-2021 COVID-19 Vaccine (3 - Booster for Torey series) COVID-19 Vaccine (3 - Booster for Torey series) [facility] Start: 10-09-2021 EPV, Provider: Steven Alfaro, Status: Pen, Time: 1:40 PM EPV, Provider: Steven Alfaro, Status: Pen, Time: 1:40 PM -[facility] Work Phone: Start: 05-30-2021 Echocardiography Echocardiogram [facility] Start: 04-27-2021 PH2 PULM F, Provider : [facility],[id number], Status: Pen, Time: 9:00 AM PH2 PULM F, Provider: [facility],[id number], Status: Pen, Time: 9:00 AM -[facility] Work Phone: Start: 04-25-2021 PH2 PULM F, Provider : [facility],[id number], Status: Pen, Time: 9:00 AM PH2 PULM F, Provider: [facility],[id number], Status: Pen, Time: 9:00 AM [facility] Work Phone: Start: 04-23-2021 PH2 PULM F, Provider : [facility],[id number], Status: Pen, Time: 9:00 AM PH2 PULM F, Provider: [facility],[id number], Status: Pen, Time: 9:00 AM [facility] Work Phone: Start: 04-20-2021 PH2 PULM F, Provider : [facility],[id number], Status: Pen, Time: 9:00 AM PH2 PULM F, Provider: [facility],[id number], Status: Pen, Time: 9:00 AM [facility] Work Phone: Start: 04-18-2021 PH2 PULM F, Provider : [facility],[id number], Status: Pen, Time: 9:00 AM PH2 PULM F, Provider: [facility],[id number], Status: Pen, Time: 9:00 AM -[facility] Work Phone: Start: 04-16-2021 PH2 PULM F, Provider : [facility],[id number], Status: Pen, Time: 9:00 AM PH2 PULM F, Provider: [facility],[id number], Status: Pen, Time: 9:00 AM [facility] Work Phone: Start: 04-13-2021 PH2 PULM F, Provider : [facility],[id number], Status: Pen, Time: 9:00 AM PH2 PULM F, Provider: [facility],[id number], Status: Pen, Time: 9:00 AM [facility] Work Phone: Start: 04-11-2021 PH2 PULM F, Provider : [facility],[id number], Status: Pen, Time: 9:00 AM PH2 PULM F, Provider: [facility],[id number], Status: Pen, Time: 9:[address] [facility] Work [facility]: Start: 04-09-2021 EPV, Provider: Steven Alfaro, Status: Pen, Time: 2:00 PM EPV, Provider: Steven Alfaro, Status: Pen, Time: 2:00 PM [facility] Work Phone: Start: 04-09-2021 PH2 PULM F, Provider : [facility],[id number], Status: Pen, Time: 9:00 AM PH2 PULM F, Provider: [facility],[id number], Status: Pen, Time: 9:00 AM [facility] Work Phone: Start: 04-06-2021 PH2 PULM F, [facility] : [facility],[id number], Status: Pen, Time: 9:00 AM PH2 PULM F, Provider: [facility],[id number], Status: Pen, Time: 9:[address] [address] Work Phone: Start: 04-04-2021 PH2 PULM F, Provider : [facility],[id number], Status: Pen, Time: 9:00 AM PH2 PULM F, [facility],[id number], Status: Pen, Time: 9:[address] Work Phone: Start: 03-30-2021 PH2 PULM F, Provider : [facility],[id number], Status: Pen, Time: 9:00 AM PH2 PULM F, Provider: [facility],[id number], Status: Pen, Time: 9:[address] [address] Work Phone: Start: 03-31-2020 MG Breast screening Mamm - Scr eening Mammogram w/ Tomosynthesis [facility] Work Phone: Start: 02-24-2018 Tetanus vaccination Tetanus: Every 1 0yrs [facility] Start: 08-30-2015 Screening for malign ant neoplasm of breast Mammogram [facility] Start: 2015 Fall risk assessment Falls Risk Asse ssment [facility] Start: 01-15-2011 Administration of he rpes zoster vaccine Zoster Vaccines (2 of 3) [facility] Start: 01-15-2011 Zoster Vaccines (2 of 3) Zoster Vacc colin (2 of 3) [facility] Start: 2010 Respiratory Syncytia l Virus Immunization: Risk, 60-74 Risk, or 75+ (1 - Risk 60-74 years 1-dose series) Respiratory Syncytial Virus Immunization: Risk, 60-74 Risk, or 75+ (1 - Risk 60-74 years 1-dose series) [facility] Start: 2000 Screening for malign ant neoplasm of colon Flexible sigmoidoscopy [facility] Start: 1968 Hepatitis C screening Hepatitis C Sc reening [facility] Start: 1953 History and physical examination, annual for health maintenance Wellness Visit [facility] Start: 1950 Medicare Annual Well ness Visit Medicare Annual Wellness Visit (AWV) [facility] Start: 1950 Screening for malign ant neoplasm of colon [facility] Start: 1950 Screening for osteoporosis Bone Density Scan [facility] End: 05-25-2026 JAYME measurement JAYME Lab Routine Arthralgia, unspecified joint 1 Occurrences starting 05/25/2025 until 05/25/2026 [facility] Comment on above: 1 Occurrences starti ng 05/25/2025 until 05/25/2026 End: 05-25-2026 Anti-cyclic citrullinated peptide antibody level CCP Antibody Lab Routine Arthralgia, unspecified joint 1 Occurrences starting 05/25/2025 until 05/25/2026 [facility] Comment on above: 1 Occurrences starti ng 05/25/2025 until 05/25/2026 End: 05-25-2026 Antibody to single and double stranded DNA measurement Anti-DNA Double-Stranded Antibody Lab Routine Arthralgia, unspecified joint 1 Occurrences starting 05/25/2025 until 05/25/2026 [facility] Comment on above: 1 Occurrences starti ng 05/25/2025 until 05/25/2026 End: 05-25-2026 B12/Folate B12/Folate Lab Routine Arthralgia, unspecified joint 1 Occurrences starting 05/25/2025 until 05/25/2026 [facility] Comment on above: 1 Occurrences starti ng 05/25/2025 until 05/25/2026 Bacteria identified in Sputum by Culture [facility] End: 05-25-2026 C reactive protein [Mass/volume] in Serum or Plasma CRP, Inflammation Lab Routine Arthralgia, unspecified joint 1 Occurrences starting 05/25/2025 until 05/25/2026 [facility] Comment on above: 1 Occurrences starti ng 05/25/2025 until 05/25/2026 CBC W Auto Different ial panel - Blood [facility] End: 05-25-2026 Complete blood count with white cell differential, manual CBC and Differential Lab Routine Arthralgia, unspecified joint 1 Occurrences starting 05/25/2025 until 05/25/2026 [facility] Comment on above: 1 Occurrences starti ng 05/25/2025 until 05/25/2026 End: 04-15-2025 Complete PFT with Pre and Post Bronchodilator Complete PFT with Pre and Post Bronchodilator PFT Routine COPD with asthma (HCC) 1 Occurrences starting 04/15/2024 until 04/15/2025 [facility] Work Phone: Comment on above: 1 Occurrences starti ng 04/15/2024 until 04/15/2025 End: 11-22-2025 Comprehensive metabolic 2000 panel - Serum or Plasma Comprehensive Metabolic Panel Lab Routine Morbid obesity with body mass index (BMI) of 40.0 or higher (HCC) 1 Occurrences starting 11/22/2024 until 11/22/2025 [facility] Comment on above: 1 Occurrences starti ng 11/22/2024 until 11/22/2025 End: 05-25-2026 Comprehensive metabolic 2000 panel - Serum or Plasma Comprehensive Metabolic Panel Lab Routine Arthralgia, unspecified joint 1 Occurrences starting 05/25/2025 until 05/25/2026 [facility] Comment on above: 1 Occurrences starti ng 05/25/2025 until 05/25/2026 End: 05-25-2026 Creatine kinase [Enzymatic activity/volume] in Serum or Plasma CPK NO MB Lab Routine Arthralgia, unspecified joint 1 Occurrences starting 05/25/2025 until 05/25/2026 [facility] Comment on above: 1 Occurrences starti ng 05/25/2025 until 05/25/2026 End: 07-13-2025 CT Chest for screening WO contrast CT Lung Cancer Screening Imaging Routine Nicotine dependence, cigarettes, in remission 1 Occurrences starting 07/13/2024 until 07/13/2025 [facility] Work Phone: Comment on above: 1 Occurrences starti ng 07/13/2024 until 07/13/2025 CTA Heart and Luna ry arteries WO and W contrast IV CT CCTA Heart With And Without Contrast Imaging Routine 10/20/2024 11:44 AM EST [facility] Work Phone: End: 05-25-2026 Erythrocyte sedimentation rate Sedimentation Rate Lab Routine Arthralgia, unspecified joint 1 Occurrences starting 05/25/2025 until 05/25/2026 [facility] Comment on above: 1 Occurrences starti ng 05/25/2025 until 05/25/2026 End: 08-29-2025 Factor 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) 1 Occurrences starting 11/22/2024 until 11/22/2025 [facility] Comment on above: 1 Occurrences starti ng 11/22/2024 until 11/22/2025 IgE [Units/volume] i n Serum or Plasma [facility] End: 11-22-2025 Lipid 1996 panel - Serum or Plasma Lipid Panel Lab Routine Morbid obesity with body mass index (BMI) of 40.0 or higher ([facility]) 1 Occurrences starting 11/22/2024 until 11/22/2025 [facility] Comment on above: 1 Occurrences starti ng 11/22/2024 until 11/22/2025 Measurement of respiratory function [facility] End: 05-25-2026 Rheumatoid factor, quantitative Rheumatoid factor Lab Routine Arthralgia, unspecified joint 1 Occurrences starting 05/25/2025 until 05/25/2026 [facility] Comment on above: 1 Occurrences starti ng 05/25/2025 until 05/25/2026 End: 11-22-2025 Thyrotropin [Units/volume] in Serum or Plasma TSH with Reflex Free T4 Lab Routine Morbid obesity with body mass index (BMI) of 40.0 or higher ([facility]) 1 Occurrences starting 11/22/2024 until 11/22/2025 [facility] Work Phone: Comment on above: 1 Occurrences starti ng 11/22/2024 until 11/22/2025 End: 05-25-2026 Thyrotropin [Units/volume] in Serum or Plasma TSH with Reflex Free T4 Lab Routine Arthralgia, unspecified joint 1 Occurrences starting 05/25/2025 until 05/25/2026 [facility] Work Phone: Comment on above: 1 Occurrences starti ng 05/25/2025 until 05/25/2026 End: 04-12-2025 XR Chest PA and Lateral and AP lateral-decubitus XR Chest AP/PA and LAT Imaging Routine COPD with acute exacerbation (HCC) 1 Occurrences starting 04/12/2024 until 04/12/2025 [facility] Work Phone: Comment on above: 1 Occurrences starti ng 04/12/2024 until 04/12/2025 XR Chest PA and Late ral and AP lateral-decubitus XR Chest AP/PA and LAT Imaging Routine COPD with acute exacerbation (HCC) 04/12/2024 2:16 PM EDT [facility] XR Chest PA and Late ral and AP lateral-decubitus XR Chest AP/PA and LAT Imaging STAT COPD with acute exacerbation (HCC) 10/28/2024 12:05 PM EST [facility] Work Phone: [facility] Work Phone: [facility] NEGATED: Highlighted row has been ruled out! Planned Goals not documented [facility] Work Phone: Immunizations Immunization Date Immunization Notes Care Provider Ampar[facility] 07-27-2024 influenza, high dose seasonal, preservative-free Rogelio Panda HOSPITAL PRODUCT SPECIALIST Work Phone: [facility] 07-27-2024 influenza virus vacc ine, unspecified formulation Sara Alvarez MD Work Phone: [facility] 07-19-2023 Flu vaccine, quadrivalent, high-dose, preservative free, age 65y+ (FLUZONE) Steven Alfaro MD Work Phone: [facility] 07-19-2023 Pneumococcal conjuga te vaccine, 20-valent (PREVNAR 20) Steven Alfaro MD Work Phone: [facility] 07-19-2023 Respiratory Synctial Virus (Rsv), Unspecified Steven Alfaro MD Work Phone: [facility] Work Phone: 07-19-2023 RSV, 60 Years And Ol jolynn (AREXVY) Eduardo 2 [facility] Work Phone: 07-19-2023 influenza virus vacc ine, unspecified formulation Patricia Lozano MD Work Phone: [facility] 08-14-2022 Fluzone High-Dose Quadrivalent 0.7 ML Intramuscular Suspension Prefilled Syringe Steven Alfaro Work Phone: [facility] Comment on above: Series: 08-14-2022 Pfizer COVID-19 Vac Bivalent 30 MCG/0.3ML Intramuscular Suspension Steven Alfaro Work Phone: [facility] Comment on above: Series: 08-14-2022 influenza virus vacc ine, unspecified formulation Steven Alfaro MD Work Phone: [facility] Work Phone: 05-29-2022 tetanus toxoid, redu syl diphtheria toxoid, and acellular pertussis vaccine, adsorbed; Translations: [Tdap (Boostrix)] Steven Alfaro Work Phone: [facility] Work Phone: Comment on above: Series: 09-04-2021 Pfizer-BioNT COVID-1 9 Vac-Gato 30 MCG/0.3ML Intramuscular Suspension Steven Alfaro Work Phone: [facility] Work Phone: Comment on above: Series: 09-04-2021 Pfizer-BioNTech COVI D-19 Vacc 30 MCG/0.3ML Intramuscular Suspension Steven Alfaro Work Phone: [facility] Work Phone: 08-02-2021 influenza, seasonal, injectable Steven Alfaro Work Phone: [facility] Work Phone: Comment on above: Series: 01-05-2021 Torey COVID-19 Vac cine 0.5 ML Intramuscular Suspension Steven Alfaro Work [facility]: [facility] Work Phone: 07-18-2020 influenza, seasonal, injectable Steven Alfaro Work Phone: [facility] Work Phone: Comment on above: Series: 07-19-2019 influenza, seasonal, injectable Steven Alfaro [facility] Work Phone: Comment on above: Series: 07-14-2018 influenza virus vacc ine, unspecified formulation; Translations: [influenza virus vaccine, unspecified formulation] Steven Alfaro [facility] Work Phone: Comment on above: Series: 08-18-2017 pneumococcal polysaccharide vaccine, 23 valent Steven [facility] Comment on above: Series: 07-14-2017 influenza, high dose seasonal, preservative-free Steven Alfaro Work Phone: [facility] 06-27-2015 influenza, high dose seasonal, preservative-free Steven Alfaro Work Phone: [facility] 03-07-2015 pneumococcal conjuga te vaccine, 13 valent Steven Alfaro Work Phone: [facility] Work Phone: Comment on above: Series: 03-03-2015 pneumococcal conjuga te vaccine, 13 valent Steven Alfaro [facility] Work Phone: 03-02-2015 pneumococcal conjuga te vaccine, 13 valent [facility] Comment on above: Series: 07-21-2014 influenza, seasonal, injectable Steven Alfaro Work Phone: [facility] Work Phone: 08-24-2013 influenza, seasonal, injectable Mayra Fernandes MD Work Phone: [facility] 11-20-2010 zoster vaccine, live Steven Alfaro [facility] Work Phone: Comment on above: Series: 09-15-2009 novel influenza-H1N1 -09, preservative-free, injectable Steven Alfaro Work Phone: [facility] 08-15-2009 pneumococcal polysaccharide vaccine, 23 valent Steven Alfaro [facility] Work Phone: Comment on above: Series: 07-04-2008 pneumococcal polysaccharide vaccine, 23 valent Mayra Fernandes MD Work Phone: [facility] 02-25-2008 tetanus toxoid, redu syl diphtheria toxoid, and acellular pertussis vaccine, adsorbed Steven Alfaro [facility] Work Phone: Comment on above: Series: 07-20-2004 pneumococcal polysaccharide vaccine, 23 valent Steven Alfaro Work Phone: [facility] Work Phone: Comment on above: Series: 07-20-2004 tetanus toxoid, redu syl diphtheria toxoid, and acellular pertussis vaccine, adsorbed Stevengagan Alfaro [facility] Work Phone: Comment on above: Series: 07-20-2004 pneumococcal polysaccharide vaccine, 23 valent Steven Alfaro [facility] Work Phone: Payers Date Payer Category Payer Self-pay [id number] 2024 Managed Care HMO (unspecified) MED [facility] HMO [id number] 2024 Medicare HMO O MANAGED [facility] C[facility] HMO [id number] 2024 Medicare [id number] 2022 Medicare (Managed Care) [id number] 2022 Unknown 2022 Unknown [id number] 2021 Unknown [id number] 2015 Unknown [id number] 2015 Medicare [id number] 2014 Unknown [id number] 1950 Unknown [id number] 2.840.1.968657.3.579.2. 356 1950 Unknown [id number] 2.840.1.748529.3.579.2. 356 1950 Unknown [id number] 2.16840.1.505505.3.579.2. 1244 1950 Unknown [id number] 2.16840.1.805416.3.579.2. 1244 1950 Unknown [id number] 2.16.840.1.335408.3.579.2. 900 1950 Unknown [id number] 2.16.840.1.464368.3.579.2. 900 1950 Unknown [id number] 2.16.840.1.762988.3.579.2. 900 1950 Unknown [id number] 2.16.840.1.104378.3.579.2. 902 1950 Unknown [id number] 2.16.840.1.213798.3.579.2. 902 1950 Unknown [id number] 2.16.840.1.993075.3.579.2. 902 1950 Unknown [id number] 2.16.840.1.712871.3.579.2. 902 1950 Unknown [id number] 2.16.840.1.046022.3.579.2. 903 1950 Unknown [id number] 2.16.840.1.573684.3.579.2. 903 1950 Unknown [id number] 2.16.840.1.282192.3.579.2. 903 1950 Unknown [id number] 2.16.840.1.054365.3.579.2. 903 1950 Unknown [id number] 2.16.840.1.479576.3.579.2. 903 1950 Unknown [id number] 2.16.840.1.800767.3.579.2. 903 1950 Unknown [id number] 2.16.840.1.436499.3.579.2. 903 1950 Unknown [id number] 2.16.840.1.530254.3.579.2. 903 1950 Unknown [id number] 2.16.840.1.653034.3.579.2. 903 1950 Unknown [id number] 2.16.840.1.700013.3.579.2. 1243 1950 Unknown [id number] 2.16.840.1.851810.3.579.2. 903 1950 Unknown [id number] 2.16.840.1.084411.3.579.2. 1950 Unknown [id number] 2.16.840.1.711747.3.579.2. 3 1950 Unknown [id number] 2.16.840.1.477504.3.579.2. 1950 Unknown [id number] 2.16.840.1.236845.3.579.2. 3 1950 Unknown [id number] 2.16.840.1.236740.3.579.2. 1950 Unknown [id number] 2.16.840.1.323496.3.579.2. 1950 Unknown [id number] 2.16.840.1.930463.3.579.2. 1950 Unknown [id number] 2.16.840.1.688261.3.579.2. 3 1950 Unknown [id number] 2.16.840.1.813748.3.579.2. 1950 Unknown [id number] 2.16.840.1.680926.3.579.2. 1950 Unknown [id number] 2.16.840.1.494074.3.579.2. 1950 Unknown [id number] 2.16.840.1.340791.3.579.2. 3 1950 Unknown [id number] 2.16.840.1.459892.3.579.2. 1950 Unknown [id number] 2.16.840.1.687326.3.579.2. 903 1950 Unknown [id number] 2.16.840.1.079263.3.579.2. 903 1950 Unknown [id number] 2.16.840.1.020181.3.579.2. 903 1950 Unknown [id number] 2.16.840.1.867769.3.579.2. 903 1950 Unknown [id number] 2.16.840.1.165860.3.579.2. 903 Unknown [id number] 2.16.840.1.294884.3.579.2. 462 Unknown [id number] 2.16.840.1.797923.3.579.2. 462 Unknown [id number] 2.16.840.1.002177.3.579.2. 462 Unknown [id number] 2.16.840.1.879792.3.579.2. 462 Unknown [id number] 2.16.840.1.496110.3.579.2. 462 Unknown [id number] 2.16.840.1.828008.3.579.2. 462 Social History Date Type Detail Facility Start: 10-13-2014 End: 10-19-2024 Consumes alcohol Consumes alcohol [facility] Work Phone: Start: 02-13-2022 Tobacco smoking status MNIS Unknown if ever smoked [facility] Work Phone: Start: 1950 Sex Assigned At Female [facility] Start: 10-13-2014 Tobacco smoking status MNIS Smokes tobacco daily [facility] Start: 03-03-1971 End: 03-03-2015 History of tobacco use Cigarette Smoker [facility] Start: 10-13-2014 End: 04-12-2024 Alcohol intake Current drinker of alcohol (finding) [facility] Start: 1950 Sex Assigned At Not on file [facility] Start: 04-21-2022 End: 11-17-2023 Exposure to SARS-CoV-2 (event) Not sure [facility] Start: 05-15-2023 Tobacco smoking status NHIS Never smoked tobacco [facility] Work Phone: Start: 05-15-2023 Tobacco use and exposure Smokeless tobacco non-user [facility] Work Phone: Start: 05-15-2023 End: 11-17-2023 Alcohol intake Lifetime non-drinker (finding) [facility] Work Phone: Start: 05-15-2023 End: 10-19-2024 Tobacco use panel [facility] Work Phone: Start: 10-01-2016 End: 02-16-2025 Tobacco smoking status NHIS Ex-smoker [facility] Start: 03-03-1971 End: 03-03-2015 History of tobacco use Current smoker [facility] Start: 09-06-2015 End: 09-15-2023 Tobacco Comment 1 ppd for 44 years, quit March 2015 [facility] Start: 05-19-2023 Gender identity Identifies as female gender (finding) [facility] Start: 05-19-2023 Sexual orientation Heterosexual (fin ding) [facility] Start: 09-28-2022 Adult Depression Screening Assessment 21 [facility] Start: 07-13-2024 End: 06-27-2025 Alcoholic beverage intake Ex-drinker (finding) [facility] Has the electric, gas, oil, or water company threatened to shut off services in your home in past 12Mo No [facility] (I/We) worried whether (my/our) food would run out before (I/we) got money to buy more. Never true [facility] Start: 08-30-2024 Alcohol Comment 1 drink per [facility] Start: 02-16-2025 Tobacco Comment vape [facility] Start: 02-16-2025 Alcohol Comment social maybe o ne a month [facility] NEGATED: Highlighted row - - [facility] Work Phone: Functional Status Date Assessment Result Facility NEGATED: Highlighted row Functional performance Functional status health issues are not documented Disease [facility] Work Phone: Mental Status Date Assessment Result Facility NEGATED: Highlighted row Cognitive function [Interpretation] Cognitive status health issues are not documented Disease [facility] Work Phone: Clinical Notes 05-15-2023 to 06-27-2025 Patient InstructionsJens Ibanez MD - 06/27/2025 3:32 PM EDTTelephone Encounter - Yaneth Wright LPN - 06/07/2025 12:35 PM EDT Note Date & Type Note Facility 06-27-2025 Instructions Allen Das RN - 06/27/2025 3:55 PM EDT Summary of today's visit with us: Please call/or Mychart message us if you have any questions after your leave your visit today. If we did not schedule your follow up appointment a Recall has been placed for your next appointment to alert the Scheduling team to reach out to you. If you have not received a call within 2 months of your visit being due-please reach out to us. No changes in plan of care today. How to contact your Care Team: Provider: Jens Ibanez MD Provider: Sophie Caldera CNP Nurse: Allen DUVALL, RN, PRODUCTION MECHANIC, [facility] Anode Machine Operator: Noni Hawkins MA Phone: In case of an emergency please call 911. REFILLS: When in need for refills please call your care team or the office at [phone]. Please include medication name, pharmacy name, specify 30-day or 90-day supply. Allow 48 hours for the processing of your refill request and then check with your pharmacy. You must follow up as directed to continue current refills. Thank you! documented in this encounter [facility] 06-27-2025 Note [facility] NOTE Name: Lola Drew Age: 75 y.o. Gender: female PCP: Sara Alvarez MD Chief Compliant: Here for follow-up CARDIOVASCULAR & METABOLIC PROBLEMS Venous thromboembolic disease Hyperlipidemia COPD JOHNATHAN on CPAP GERD ASSESSMENT & PLAN: 75-year-old lady who continues to do well from cardiovascular point of view. She has been taken off oral AC therapy by hematology clinic after completing 6 months therapy. She have hypercoagulability studies. Right lower extremity DVT has resolved. She has mild bilateral lower extremity swelling otherwise. Resting rate/pressure product is optimal. She is currently on antiplatelet and moderate intensity statin therapy. Will hold the course. Continue current medical therapy same RTC in 1 year HISTORY OF PRESENT ILLNESS Mrs. Lola Drew has chronic cardiovascular illness as listed above and is here for follow-up. Lola presents unaccompanied. She recently lost her , Pantera, who also used to be my patient. She reports improvement of right-sided lower extremity swelling. Recently lower extremity ultrasound showed resolution of right lower extremity DVT. She was taken off oral AC therapy by hematology clinic. She reports sedentary lifestyle especially during the time when she was taking care of her . I encouraged her to be more active and stay up on her feet as much as she can. She does not report exertional symptoms. Angina or dyspnea. She does report nocturnal dyspnea, palpitation, presyncope, or syncope. I have personally reviewed all available cardiovascular studies and images. Echo completed in October 2024 revealed LVEF: 65-70% with normal diastolic function. RV has normal size and function. No hemodynamically significant valvular dysfunction. RVSP estimated to be 24 mmHg. 12 lead EKG completed on 07/24/2024 showed Normal sinus rhythm. Rate: 65. OBJECTIVES BP 121/66 (BP Location: Left arm, Patient Position: Sitting, BP Cuff Size: Adult) Pulse 61 Ht 5' 4 Wt 105.7 kg (233 lb) SpO2 96% BMI 39.99 kg/m General Appearance: healthy-looking pleasant lady. Not in acute distress Respiratory: good air entry bilaterally. No wheeze or crackles. Cardiovascular: good peripheral pulses. JVP is flat. Regular rate and rhythm. Normal S1-S2. No murmur/gallop/rub. Abdomen: soft. Non-tender. Non-distended. DIPAK: no peripheral edema. Skin: no rash. No cyanosis. No clubbing of fingers. Current Outpatient Medications Medication Instructions albuterol 90 mcg/actuation inhaler 2 puffs, Every 6 hours PRN aspirin 81 mg, Daily buPROPion (WELLBUTRIN XL) 300 mg, Oral, Daily busPIRone (BUSPAR) 5 mg, Oral, 3 times daily PRN clobetasoL (TEMOVATE) 0.05 % scalp solution No dose, route, or frequency recorded. DULoxetine (CYMBALTA) 120 mg, Oral, Daily, Total 90 mg daily fluticasone propionate (FLONASE) 50 mcg/actuation nasal spray 1 spray, Nasal, Daily luuupdskrio-vufrwfbta-xejebaei (Trelegy Ellipta) 200-62.5-25 mcg DsDv 1 Inhalation., Inhalation, Daily furosemide (LASIX) 40 mg, Oral, 2 times daily ipratropium-albuteroL (DUO-NEB) 0.5-2.5 mg/3 ml nebulizer 3 mL, Nebulization, 3 times daily (RT) levocetirizine (XYZAL) 5 mg, Oral, Every evening levothyroxine (SYNTHROID, LEVOTHROID) 75 mcg, Oral, Daily meclizine (ANTIVERT) 25 mg, Oral, 3 times daily PRN meloxicam (MOBIC) 15 mg, Oral, Daily montelukast (SINGULAIR) 10 mg, Oral, Daily nitroGLYCERIN (NITROSTAT) 0.4 mg, Sublingual, Every 5 min PRN, , if no relief after 3 doses call 911 NONFORMULARY CPAP 9cm H20 ([facility]) in [facility] ondansetron (ZOFRAN-ODT) 4 mg, Oral, Every 6 to 8 hours as needed pantoprazole (PROTONIX) 20 mg, Oral, Daily potassium chloride 10 MEQ CR tablet 20 mEq, Oral, Daily simvastatin (ZOCOR) 40 mg, Oral, Daily SUMAtriptan (IMITREX) 50 mg, Oral, Every 2 hour PRN, Max of 200 mg in 24hrs, do not treat more than 3 times a week valACYclovir (VALTREX) 500 mg, Oral, 2 times daily Past Medical History: Diagnosis Date Anxiety Asthma [...] REMAINS) HYSTERECTOMY (CERVIX REMOVED) NASAL SEPTUM SURGERY (more content not included)... [facility] 06-27-2025 History of Presen t illness Narrative [facility] NOTE Name: Lola Drew Age: 75 y.o. Gender: female PCP: Sara Alvarez MD Chief Compliant: Here for follow-up CARDIOVASCULAR & METABOLIC PROBLEMS Venous thromboembolic disease Hyperlipidemia COPD JOHNATHAN on CPAP GERD ASSESSMENT & PLAN: 75-year-old lady who continues to do well from cardiovascular point of view. She has been taken off oral AC therapy by hematology clinic after completing 6 months therapy. She have hypercoagulability studies. Right lower extremity DVT has resolved. She has mild bilateral lower extremity swelling otherwise. Resting rate/pressure product is optimal. She is currently on antiplatelet and moderate intensity statin therapy. Will hold the course. Continue current medical therapy same RTC in 1 year HISTORY OF PRESENT ILLNESS Mrs. Lola Drew has chronic cardiovascular illness as listed above and is here for follow-up. Lola presents unaccompanied. She recently lost her , Pantera, who also used to be my patient. She reports improvement of right-sided lower extremity swelling. Recently lower extremity ultrasound showed resolution of right lower extremity DVT. She was taken off oral AC therapy by hematology clinic. She reports sedentary lifestyle especially during the time when she was taking care of her . I encouraged her to be more active and stay up on her feet as much as she can. She does not report exertional symptoms. Angina or dyspnea. She does report nocturnal dyspnea, palpitation, presyncope, or syncope. I have personally reviewed all available cardiovascular studies and images. Echo completed in October 2024 revealed LVEF: 65-70% with normal diastolic function. RV has normal size and function. No hemodynamically significant valvular dysfunction. RVSP estimated to be 24 mmHg. 12 lead EKG completed on 07/24/2024 showed Normal sinus rhythm. Rate: 65. OBJECTIVES BP 121/66 (BP Location: Left arm, Patient Position: Sitting, BP Cuff Size: Adult) Pulse 61 Ht 5' 4 Wt 105.7 kg (233 lb) SpO2 96% BMI 39.99 kg/m General Appearance: healthy-looking pleasant lady. Not in acute distress Respiratory: good air entry bilaterally. No wheeze or crackles. Cardiovascular: good peripheral pulses. JVP is flat. Regular rate and rhythm. Normal S1-S2. No murmur/gallop/rub. Abdomen: soft. Non-tender. Non-distended. DIPAK: no peripheral edema. Skin: no rash. No cyanosis. No clubbing of fingers. Current Outpatient Medications Medication Instructions albuterol 90 mcg/actuation inhaler 2 puffs, Every 6 hours PRN aspirin 81 mg, Daily buPROPion (WELLBUTRIN XL) 300 mg, Oral, Daily busPIRone (BUSPAR) 5 mg, Oral, 3 times daily PRN clobetasoL (TEMOVATE) 0.05 % scalp solution No dose, route, or frequency recorded. DULoxetine (CYMBALTA) 120 mg, Oral, Daily, Total 90 mg daily fluticasone propionate (FLONASE) 50 mcg/actuation nasal spray 1 spray, Nasal, Daily ivjoycnvjnh-mjgjkufnl-rfhabqcp (Trelegy Ellipta) 200-62.5-25 mcg DsDv 1 Inhalation., Inhalation, Daily furosemide (LASIX) 40 mg, Oral, 2 times daily ipratropium-albuteroL (DUO-NEB) 0.5-2.5 mg/3 ml nebulizer 3 mL, Nebulization, 3 times daily (RT) levocetirizine (XYZAL) 5 mg, Oral, Every evening levothyroxine (SYNTHROID, LEVOTHROID) 75 mcg, Oral, Daily meclizine (ANTIVERT) 25 mg, Oral, 3 times daily PRN meloxicam (MOBIC) 15 mg, Oral, Daily montelukast (SINGULAIR) 10 mg, Oral, Daily nitroGLYCERIN (NITROSTAT) 0.4 mg, Sublingual, Every 5 min PRN, , if no relief after 3 doses call 911 NONFORMULARY CPAP 9cm H20 ([facility]) in [facility] ondansetron (ZOFRAN-ODT) 4 mg, Oral, Every 6 to 8 hours as needed pantoprazole (PROTONIX) 20 mg, Oral, Daily potassium chloride 10 MEQ CR tablet 20 mEq, Oral, Daily simvastatin (ZOCOR) 40 mg, Oral, Daily SUMAtriptan (IMITREX) 50 mg, Oral, Every 2 hour PRN, Max of 200 mg in 24hrs, do not treat more than 3 times a week valACYclovir (VALTREX) 500 mg, Oral, 2 times daily Past Medical History: Diagnosis Date Anxiety Asthma [...] BIOPSY TONSILLECTOMY AND ADENOIDECTOMY UPPER GASTROINTESTINAL ENDOSCOPY Jens Ibanez MD, FAC, [facility] Interventional Cardiology/Structural Heart Disease [facility] documented in this encounter [facility] 06-07-2025 Telephone encounter Note MEAGAN is requesting a refill for Requested Prescriptions Pending Prescriptions Disp Refills furosemide (LASIX) 40 MG tablet 60 tablet 1 Sig: Take 1 (one) tablet (40 mg total) by mouth 2 (two) times a day . Last refill: 03/28/2025 furosemide (LASIX) 40 MG tablet, 60 tablets, 1 refill Last appt: 05/25/2025 Upcoming appt (when is it due or is it scheduled): 08/16/2025 Follow up: Refill pending for review without additional follow up based on information above. [facility] 06-07-2025 Miscellaneous Notes MEAGAN is requesting a refill for Requested Prescriptions Pending Prescriptions Disp Refills furosemide (LASIX) 40 MG tablet 60 tablet 1 Sig: Take 1 (one) tablet (40 mg total) by mouth 2 (two) times a day . Last refill: 03/28/2025 furosemide (LASIX) 40 MG tablet, 60 tablets, 1 refill Last appt: 05/25/2025 Upcoming appt (when is it due or is it scheduled): 08/16/2025 Follow up: Refill pending for review without additional follow up based on information above. documented in this encounter [facility] 06-06-2025 Note Addended by: SARA ALVAREZ on: 06/06/2025 01:13 PM Modules accepted: Orders [facility] 06-06-2025 Miscellaneous Notes Addended by: SARA ALVAREZ on: 06/06/2025 01:13 PM Modules accepted: Orders Talked to Meagan and offered condolences , she is doing fine with Buspar might benefit from getting to counseling so that was placed today. . Daughter is living with her and of great support. She is still waiting to hear back from Rheumatology, will call us in a week if havent heard anything Thankful for the call. SARA ALVAREZ MD Family Medicine Physician [place] [phone] Please clarify which medicine she is referring to FYI RN called and HIPAA compliant voicemail for patient to return call to office. documented in this encounter [facility] 06-06-2025 Telephone encounter Note Talked to Meagan and offered condolences , she is doing fine with Buspar might benefit from getting to counseling so that was placed today. . Daughter is living with her and of great support. She is still waiting to hear back from Rheumatology, will call us in a week if havent heard anything Thankful for the call. SARA ALVAREZ MD Family Medicine Physician [place] [phone] [facility] 06-02-2025 Telephone encounter Note Please clarify which medicine she is referring to [facility] 06-02-2025 Miscellaneous Notes Please clarify which medicine she is referring to FYI RN called and HIPAA compliant voicemail for patient to return call to office. documented in this encounter [facility] 06-01-2025 Telephone encounter Note EDMUNDI [facility] 05-27-2025 Telephone encounter Note RN called and HIPAA compliant voicemail for patient to return call to office. [facility] 05-25-2025 Note Subjective Patient I D: Lola Drew is a 74 y.o. female here for Chief Complaint Patient presents with Follow-up 6 month follow up- back of right leg behind knee painful After discussing the use of ambient listening and audio recording in generating medical documentation, the patient verbally consented to use of this technology for today's visit. History of Present Illness Obesity: She expresses interest in weight loss [...] experience this discomfort even while on Protonix. She is experiencing significant anxiety and stress [...] but finds it difficult to manage emotionally. Right leg pain: She has been experiencing right leg pain and swelling for the past two to three days, localized at the back of the knee and exacerbated by certain movements. The affected leg appears larger compared to the other leg. She reports that she does not do as much as she used to and her house shows it. No significant exertional dyspnea is reported. COPD and asthma: She has a history of COPD and was recently treated with antibiotics for a suspected infection, completing a course of Levaquin, 725 mg. She is currently using inhalers and denies significant exertional dyspnea, though her activity level is reduced. Anxiety and depression : She is taking Buspar for mood management and reports it may be helping, although she experienced a period of intense anger recently. She is also on Cymbalta and Wellbutrin but is unsure of their effectiveness. She has not been skipping doses of Buspar. She mentions a past prescription for Imitrex for migraines, which she has not needed to use recently. She also takes levocetirizine at night for allergies. She expresses concern about a possible diagnosis of rheumatoid arthritis, as she has experienced shooting pains in her right hand and has a family history of arthritis. She is unsure if she has been formally diagnosed with rheumatoid arthritis. Past Medical History: Diagnosis Date Anxiety Asthma [...] date: 03/03/1971 Quit date: 03/03/2015 Years since quittin.2 Tobacco comments: vape Vaping Use Vaping status: Every Day Substances: Nicotine, Flavoring Devices: Disposable Substance Use Topics Alcohol use: Not Currently Comment: social maybe one a month Drug use: Never Review of Systems Vitals: 05/25/25 1345 BP: 136/81 BP Location: Right arm Patient Position: Sitting BP Cuff Size: Adult Pulse: (!) 59 Resp: 16 Temp: 98.3 (more content not included)... [facility] 05-25-2025 History of Presen t illness Narrative Images from the original note were not included. Subjective Patient ID: Lola Drew is a 74 y.o. female here for Chief Complaint Patient presents with Follow-up 6 month follow up- back of right leg behind knee painful After discussing the use of ambient listening and audio recording in generating medical documentation, the patient verbally consented to use of this technology for today's visit. History of Present Illness Obesity: She expresses interest in weight loss [...] experience this discomfort even while on Protonix. She is experiencing significant anxiety and stress [...] but finds it difficult to manage emotionally. Right leg pain: She has been experiencing right leg pain and swelling for the past two to three days, localized at the back of the knee and exacerbated by certain movements. The affected leg appears larger compared to the other leg. She reports that she does not do as much as she used to and her house shows it. No significant exertional dyspnea is reported. COPD and asthma: She has a history of COPD and was recently treated with antibiotics for a suspected infection, completing a course of Levaquin, 725 mg. She is currently using inhalers and denies significant exertional dyspnea, though her activity level is reduced. Anxiety and depression : She is taking Buspar for mood management and reports it may be helping, although she experienced a period of intense anger recently. She is also on Cymbalta and Wellbutrin but is unsure of their effectiveness. She has not been skipping doses of Buspar. She mentions a past prescription for Imitrex for migraines, which she has not needed to use recently. She also takes levocetirizine at night for allergies. She expresses concern about a possible diagnosis of rheumatoid arthritis, as she has experienced shooting pains in her right hand and has a family history of arthritis. She is unsure if she has been formally diagnosed with rheumatoid arthritis. Past Medical History: Diagnosis Date Anxiety Asthma [...] date: 03/03/1971 Quit date: 03/03/2015 Years since quittin.2 Tobacco comments: vape Vaping Use Vaping status: Every Day Substances: Nicotine, Flavoring Devices: Disposable Substance Use Topics Alcohol use: Not Currently Comment: social maybe one a month Drug use: Never Review of Systems Vitals: 05/25/25 1345 BP: 136/81 BP Location: Right arm Patient Position: Sitting BP Cuff Size: Adult Pulse: (!) 59 Resp: 16 Temp: 98.3 F (36.8 C) TempSrc: Oral SpO2: 93% Weight: 106.2 kg (234 lb 1.6 oz) Height: 5' 4 Estimated body mass index is 40.18 kg/m as calculated from the following: Height as of this encounter: 5' 4. Weight as of this encounter: 106.2 kg (234 lb 1.6 oz). Physical Exam Constitutional: General: She is not [...] CVA tenderness, guarding or rebound. Musculoskeletal: General: Tenderness (normal ROM , tenderness over right popliteal fossa with mild swelling no redness) present. Normal range of motion. Cervical back: Normal [...] Hx Fam Hx Patient's Medications New Prescriptions MELOXICAM (MOBIC) 15 MG TABLET Take 1 (one) tablet (15 mg total) by mouth daily . Previous Medications ALBUTEROL 90 MCG/ACTUATION INHALER Inhale 2 (two) puffs every 6 (six) hours as needed for wheezing . ASPIRIN 81 MG EC TABLET Take 1 (one) tablet (81 mg total) by mouth daily . BUPROPION (WELLBUTRIN XL) 300 MG 24 HR TABLET Take 1 (one) tablet (300 mg total) by mouth daily . BUSPIRONE (BUSPAR) 5 MG TABLET Take 1 (one) tablet (5 mg total) by mouth 3 (three) times a day as needed . CLOBETASOL (TEMOVATE) 0.05 % SCALP SOLUTION DULOXETINE (CYMBALTA) 60 MG CAPSULE Take 2 (two) capsules (120 mg total) by mouth daily Total 90 mg daily . FLUTICASONE PROPIONATE (FLONASE) 50 MCG/ACTUATION NASAL SPRAY Instill 1 (one) spray into each nostril daily . CLFRLLOXCSS-XQTZFVNHF-OXELOPBG (TRELEGY ELLIPTA) 200-62.5-25 MCG DSDV Inhale 1 [...] call 911 . NONFORMULARY CPAP 9cm H20 ([facility]) in [facility] ONDANSETRON (ZOFRAN-ODT) 4 MG DISINTEGRATING TABLET Dissolve 1 (one) tablet (4 mg total) on top of tongue every 6 to 8 hours as needed for nausea . PANTOPRAZOLE (PROTONIX) 20 MG TABLET Take 1 (one) tablet (20 mg total) by mouth daily . SEMAGLUTIDE, WEIGHT [...] more than 3 times a week . VALACYCLOVIR (VALTREX) 500 MG TABLET Take 1 (one) tablet (500 mg total) by mouth 2 (two) times a day . Modified Medications No medications on file Discontinued Medications AZITHROMYCIN (Z-ALEYDA) 5 DAY DOSE PACK Follow package instructions. . FEXOFENADINE (ARIELLA) 180 MG TABLET Take 1 (one) tablet (180 mg total) by mouth . POTASSIUM CHLORIDE (MICRO-K) 10 MEQ CR CAPSULE Take 1 (one) capsule (10 mEq total) by mouth daily . Health Maintenance Due Topic Date Due Hepatitis C Screening Never done Respiratory Syncytial Virus Immunization: Risk, 60-74 Risk, or 75+ (1 - Risk 60-74 years 1-dose series) Never done Medicare Wellness Visit 05/15/2024 Zoster Vaccines (3 of 3) 09/29/2024 COVID-19 Vaccine ( season) 2025 Low-dose CT Lung Cancer Screen 07/29/2025 Assessment & Plan Problem List Items Addressed This Visit Respiratory COPD with asthma (HCC) COPD with acute exacerbation (HCC) - Primary Cardiovascular and Mediastinum PE (pulmonary thromboembolism) (HCC) Other Moderate recurrent major depression (HCC) Other Visit Diagnoses Vestibular migraine Relevant Medications meloxicam (MOBIC) 15 MG tablet Arthralgia, unspecified joint Relevant Orders TSH with Reflex Free T4 B12/Folate CBC and Differential CRP, Inflammation Sedimentation Rate Anti-DNA Double-Stranded Antibody CPK NO MB JAYME CCP Antibody Rheumatoid factor Comprehensive Metabolic Panel Right leg pain Relevant Medications meloxicam (MOBIC) 15 MG tablet Other Relevant Orders Ultrasound duplex venous leg right Assessment & Plan Assessment & Plan Right knee pain Acute right knee pain likely due to Nelson's cyst. Differential includes Nelson's cyst and possible DVT. Discussed ultrasound to rule out DVT and meloxicam for inflammation. - Order stat ultrasound to rule out DVT. - Prescribe meloxicam for 7-14 days for inflammation. - Consider steroid injection if no improvement with meloxicam. - will discuss with Dr. Chapman for potential knee injection if needed. COPD exacerbation Recent COPD exacerbation managed by wafer mounter with antibiotics. Symptoms manageable with rest. 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 She declined pulmonary rehab due to caregiving responsibilities. - Continue current inhaler regimen. - Consider allergy testing and IgE/eosinophil counts at follow-up with wafer mounter. - Discuss potential biological agent with wafer mounter. - Monitor symptoms and consider pulmonary rehab in the future if circumstances allow. Mood disorder Mood fluctuations with episodes of anger, possibly related to stress and caregiving. Currently on Buspar, Cymbalta, and Wellbutrin. Some benefit from Buspar. Discussed adjusting Buspar dosage and monitoring mood for medication adjustments. - Adjust Buspar dosage as needed based on symptom relief. - Monitor mood and consider medication adjustment if no improvement. - Follow up in 3 months to reassess mood and medication efficacy. Arthritis (suspected) No formal diagnosis but symptoms of joint pain, particularly in hands. Previous questionnaire indicated possible rheumatoid arthritis. Discussed ordering blood test for rheumatoid arthritis markers. - Order blood test for rheumatoid arthritis markers. - Evaluate results with next set of labs. Return in about 3 months (around 08/25/2025) for Follow Up. My ongoing relationship with Lola Drew requires continued responsibility and cognitive effort of being the focal point for all services related to chronic condition(s). After discussing the use of ambient listening and audio recording in generating medical documentation, the patient verbally consented to use of this technology for today's visit. SARA ALVAREZ MD [facility] [address] [facility] [address] [facility] [address] Dept: [phone] 04/12/2024 1:43 PM 04/01/2025 10:55 AM Depression [...] for management details. documented in this encounter [facility] 05-13-2025 Evaluation note Diagnosis Onset Date Resolution Asthma-COPD overlap syndrome chronic May 13, 2025 11:10am Obesity chronic May 13 11:10am JOHNATHAN (obstructive sleep apnea) chronic May 13, 2025 11:10am PND (post-nasal drip) chronic May 11:10am Seasonal allergies chronic May 032024 11:10am [facility] Work Phone: [phone]) 671-309306-17-2025 NoteSubjective Patient ID: Lola Drew is a 74 [...] (one) spray into each nostril daily . lbjsjfrzyhc-zwxykmftg-yhdhrhlf (Trelegy Ellipta) 200-62.5-25 mcg DsDv Inhale 1 [...] call 911 . NONFORMULARY CPAP 9cm H20 ([facility]) in [facility] ondansetron (ZOFRAN-ODT) 4 MG disintegrating tablet Dissolve [...] for migraine Max (more content not included)... [facility]06-17-2025 History of Present illness Narrative* Елена Bourne, KYUNG - 04/19/2025 10:44 AM EDT Images from the original note were not [...] ear pain, rhinorrhea and PND. Denies fever orchills, but states she has been feeing more [...] past medical history, past social history, past surgicalhistory, and problem list. Past Medical History: Diagnosis [...] mg total) by mouth daily Total 90 mgdaily . fexofenadine (ARIELLA) 180 MG tablet Take 1 (one) tablet (180 mg total) by mouth . fluticasone propionate (FLONASE) 50 mcg/actuation nasal spray Instill 1 (one) spray into each nostril daily . gvnwulhvtom-zckhypywg-mdwsodka (Trelegy Ellipta) 200-62.5-25 mcg DsDv Inhale 1 (one) Inhalation. daily . furosemide (LASIX) 40 MG tablet Take 1 (one) tablet (40 mg total) by mouth 2 (two) times a day . ipratropium-albuteroL (DUO-NEB) 0.5-2.5 mg/3 ml nebulizer Take 3 mL by nebulization 3 (three) timesa day . levocetirizine (XYZAL) 5 MG tablet [...] call 911 . NONFORMULARY CPAP 9cm H20 ([facility]) in [facility] ondansetron (ZOFRAN-ODT) 4 MG disintegrating tablet Dissolve [...] arm, Patient Position: Sitting, BP Cuff Size: X- large Adult) Pulse 72 Temp 98.2 F (36.8 [...] COPD exacerbation February, March and now April assuzanne. Encouraged to reach out to her wafer mounter and follow with them as she may need adjustmentsto her medication regiment. Patient verbalized understanding and in agreement with plan of care. Please note: Portions of this chart may have been created with [employer] voice recognition software. Occasional wrong-word or sound-like [...] (Sulfonamide Antibiotics) Penicillins Rash documented in this [id number] NoteSubjective Patient ID: Lola Drew is a 74 [...] 03/03/2015 Years since qu (more content not included)...[facility]05-30-2025 History of Present illness Narrative* Sara Alvarez MD - 04/01/2025 9:36 AM EDT Images from the original note were not [...] headaches and has not experienced any headaches sinceher last visit. She has been on Protonix [...] with the rapid progression of his condition. Despiterespecting his decision to refuse dialysis, she finds it difficult to manage emotionally. Her has a history of multiple surgeries, including prostate removal and partial kidney removal, and suffered a serious heart attack a year ago. He has refused dialysis despite his kidney failure, expressing that he is tired and ready to stop treatment. She respects his decision but finds itdifficult to manage emotionally. She feels exhausted, though [...] mental health. She is also using inhalers forher respiratory condition and is awaiting a refill [...] reading the newspaper or watching television: Nearly everyday Moving or speaking so slowly that other [...] made it for you to do your work,take care of things at home, or get [...] Take 3 mL by nebulization 3 (three) timesa day . LEVOCETIRIZINE (XYZAL) 5 MG TABLET [...] call 911 . NONFORMULARY CPAP 9cm H20 ([facility]) in [facility] ONDANSETRON (ZOFRAN-ODT) 4 MG DISINTEGRATING TABLET Dissolve [...] daily . Take 1 (one) capsule (60 mgtotal) by mouth daily Total 90 mg daily . JHXWORWDBZD-UYJXWVIJU-VZUAVEYF (TRELEGY ELLIPTA) 200-62.5-25 MCG DSDV elxcozjxsbq-vodulpzgr-iuleaxpz (Trelegy Ellipta) 200-62.5-25 mcg DsDv Inhale 1 [...] 20 MG tablet Respiratory Asthma Relevant Medications bupgjcgylzd-xyelobrdo-ioltqfwe (Trelegy Ellipta) 200-62.5-25 mcg DsDv Other Visit Diagnoses Anxiety - Primary Relevant Medications busPIRone (BUSPAR) 5 MG tablet Other Relevant Orders Ambulatory Ref to [place] [facility]ake[facility] Raiser Moderate major depression (HCC) Relevant Medications busPIRone (BUSPAR) 5 MG tablet DULoxetine (CYMBALTA) 60 MG capsule Other Relevant Orders Ambulatory Ref to [place] [facility] R[facility] Mild major depression Relevant Medications busPIRone (BUSPAR) [...] from 's declining health and hospice care, leadingto emotional distress and impaired functioning. - Increase [...] on file. My ongoing relationship with Lola Wheeler Lewisfabiola requires continued responsibility and cognitive effort of being the focal point for all services related to chronic condition(s). After discussing the use of ambient listening and audio recording in generating medical documentation, the patient verbally consented to use of this technology for today's visit. SARA ALVAREZ MD [facility] [address] Dept: [phone] 04/12/2024 1:43 PM 04/01/2025 10:55 AM Depression [...] made it for you to do your work,take care of things at home, or get [...] made it for you to do your work,take care of things at home, or get along with other people? Very difficult Patient is currently being treated for depression, see assessment and plan for management details. documented in this [id number] Evaluation + Plan note* Assessment & Plan Note - Diana Beatty DO - 03/10/2025 1:03 PM EDT Associated Problem(s): Upper respiratory tract infection Current URI with COPD exacerbation with wheezing, increased shortness of breath, productive cough. Lungs very wheezy on exam. negative influenza and COVID swabs in office today. - Prescribed azithromycin x 5 days and prednisone 40 mg x 5 days - ER precautions given - Follow-up if symptoms not improved after completing medications [id number] Miscellaneous Notes* Assessment & Plan Note - Diana Beatty DO - 03/10/2025 1:03 PM EDTAssociated Problem(s): Upper respiratory tract infection Current URI with COPD exacerbation with wheezing, increased shortness of breath, productive cough. Lungs very wheezy on exam. negative influenza and COVID swabs in office today. - Prescribed azithromycin x 5 days and prednisone 40 mg x 5 days - ER precautions given - Follow-up if symptoms not improved after completing medications * Assessment & Plan Note - Diana Beatty DO - 03/10/2025 1:02 PM EDT Associated Problem(s): COPD with acute exacerbation (HCC) Current URI with COPD exacerbation with wheezing, increased shortness of breath, productive cough. - Prescribed azithromycin x 5 days and prednisone 40 mg x 5 days - ER precautions given - Follow-up if symptoms not improved after completing medications documented in this [id number] Evaluation + Plan note* Assessment & Plan Note - Diana Beatty DO - 03/10/2025 1:02 PM EDT Associated Problem(s): COPD with acute exacerbation (HCC) Current URI with COPD exacerbation with wheezing, increased shortness of breath, productive cough. - Prescribed azithromycin x 5 days and prednisone 40 mg x 5 days - ER precautions given - Follow-up if symptoms not improved after completing medications [id number] History of Present illness Narrative* Diana Beatty DO - 03/10/2025 12:00 PM EDT Assessment/Plan: COPD with acute exacerbation (HCC) Current [...] month ago, and symptoms improved/resolved with doxycycline andMedrol Dosepak. The following portions of the patient's history were reviewed and updated as appropriate: allergies, current medications, past family history, past medical history, past social history, past surgicalhistory and problem list. Review of Systems Objective: [...] medications. Diana Beatty DO documented in this [id number] NoteAssessment/Plan: COPD with acute exacerbation (HCC) Current URI [...] DO AUTHENTICATED BY DIANA BEATTY, ON 03/10/2025 13:06:[address] [place] [address] Ambulatory 02-16-2025 History of Present illness Narrative* Rogelio Panda CNP - 02/16/2025 11:00 AM EDT Hematology/Oncology Clinic Follow Up Note Patient ID: [...] heparin bolus and infusion. Patient admitted to [place] ICU for further evaluation of pulmonary embolisms [...] the right lower extremity. She was discharged onEliquis. She denies any recent surgery or travel prior to her VTE. No previous history of VTE, no family history of clotting disorder. She was again seen in the ED on 07/30/24 for bronchitis ang given steroidsand doxycycline. Shortness of breath on exertion, fatigue, [...] each nostril daily . 16 g 5 pemzhkgazrm-hqcfbhrpu-ftvfbmqc (Trelegy Ellipta) 200-62.5-25 mcg DsDv Inhale 1 (one) Inhalation. daily . 60 each 5 furosemide (LASIX) 40 MG tablet Take 1 (one) tablet (40 mg total) by mouth 2 (two) times a day . 60tablet 2 ipratropium-albuteroL (DUO-NEB) 0.5-2.5 mg/3 ml nebulizer Take 3 mL by nebulization 3 (three) timesa day . 270 mL 2 levocetirizine (XYZAL) [...] 0 NONFORMULARY CPAP 9cm H20 ([facility]) in [facility] ondansetron (ZOFRAN-ODT) 4 MG disintegrating tablet Dissolve [...] capsule (10 mEq total) by mouth daily .(Patient not taking: Reported on 02/16/2025 .) 90 capsule 1 No current facility-administered medications for this visit. Family History Problem Relation Age of Onset Other (unknown cancer) Mother Cancer Mother Early Mother Heart attack Father age 54 Asthma Father Cancer Father Early Father Arthritis Paternal Grandfather Unknown Sister Social History Socioeconomic History Marital status: Occupational History Employer: [employer] Tobacco Use Smoking status: [...] y.o. female with a history of pulmonary embolism,vitamin D deficiency, osteopenia, sleep apnea, hypercholesterolemia, GERD, [...] deep vein thrombosis in the mid peroneal veinsof the right lower extremity and no progression/extension [...] Pulmonology. COPD: per history. She follows with [facility] Pulmonology. Follow up as scheduled. Routine cancer [...] Full Code ARTHUR Boothe documented in this [id number] NoteHematology/Oncology Clinic Follow Up Note Patient ID: Lola [...] heparin bolus and infusion. Patient admitted to [place] ICU for further evaluation of pulmonary embolisms [...] each nostril daily . 16 g 5 uzxoyevmiiw-dwmuyoiwp-gzvqjtxa (Trelegy Ellipta) 200-62.5-25 mcg DsDv Inhale 1 [...] mg total) by mouth (more content not included)...[facility]04-15-2025 Instructions* Patient Instructions* Rogelio Panda CNP - 02/15/2025 5:53 PM EDT Your blood clot has resolved. You can stop your Eliquis. Follow up as needed documented in this [id number] NoteSubjective Patient ID: Lola Drew is a 74 [...] (one) spray into each nostril daily . mdrnxdtraab-wyofdrrzf-wacruxaq (Trelegy Ellipta) 200-62.5-25 mcg DsDv Inhale 1 [...] call 911 . NONFORMULARY CPAP 9cm H20 ([facility]) in [facility] ondansetron (ZOFRAN-ODT) 4 MG disintegrating tablet Dissolve [...] Pharynx: No oropharyngeal exudate (more content not included)...[facility]04-10-2025 History of Present illness Narrative* Елена Bourne, KYUNG - 02/10/2025 1:57 PM EDT Images from the original note were not [...] past medical history, past social history, past surgicalhistory, and problem list. Past Medical History: Diagnosis [...] (one) spray into each nostril daily . ndexlfkfpay-zhsjmzkio-yboducmv (Trelegy Ellipta) 200-62.5-25 mcg DsDv Inhale 1 (one) Inhalation. daily . furosemide (LASIX) 40 MG tablet Take 1 (one) tablet (40 mg total) by mouth 2 (two) times a day . ipratropium-albuteroL (DUO-NEB) 0.5-2.5 mg/3 ml nebulizer Take 3 mL by nebulization 3 (three) timesa day . levocetirizine (XYZAL) 5 MG tablet [...] call 911 . NONFORMULARY CPAP 9cm H20 ([facility]) in [facility] ondansetron (ZOFRAN-ODT) 4 MG disintegrating tablet Dissolve [...] arm, Patient Position: Sitting, BP Cuff Size: X- large Adult) Pulse (!) 59 Temp 98 F [...] this chart may have been created with [employer] voice recognition software. Occasional wrong-word or sound-like [...] (Sulfonamide Antibiotics) Penicillins Rash documented in this [id number] Evaluation + Plan note* Assessment & Plan Note - Sara Alvarez MD - 12/28/2024 8:30 AM ESTAssociated Problem(s): JOHNATHAN on CPAP History of JOHNATHAN confirmed with sleep study , need new CPAP supplies this year [id number] Miscellaneous Notes* Assessment & Plan Note - Sara Alvarez MD - 12/28/2024 8:30 AM ESTAssociated Problem(s): JOHNATHAN on CPAP History of JOHNATHAN confirmed with sleep study , need new CPAP supplies this year documented in this [id number] NoteSubjective Patient ID: Lola Drew is a 74 [...] No edema. Lymphadenopathy: Cervical (more content not included)...[facility]01-20-2025 History of Present illness Narrative* Sara Alvarez MD - 11/22/2024 1:53 PM EST Subjective Patient ID: Lola Drew is a [...] headaches and has not experienced any headaches sinceher last visit. She has been on Protonix [...] Take 3 mL by nebulization 3 (three) timesa day . MECLIZINE (ANTIVERT) 25 MG TABLET [...] call 911 . NONFORMULARY CPAP 9cm H20 ([facility]) in [facility] ONDANSETRON (ZOFRAN-ODT) 4 MG DISINTEGRATING TABLET Dissolve [...] Take 1 (one) tablet (5 mg total) bymouth 2 (two) times a day . BUPROPION [...] (one) spray into each nostril daily . OXWRQNHKPJK-VCKNURPCD-GLHWILXG (TRELEGY ELLIPTA) 200-62.5-25 MCG DSDV hjrwiessfhr-yxcyfppuv-kygpywwv (Trelegy Ellipta) 200-62.5-25 mcg DsDv Inhale 1 [...] (one) tablet (40 mg total) by mouth daily. Discontinued Medications GYUBWXZETMP-MDQIJHHFF-CONKVFYF (TRELEGY ELLIPTA) 200-62.5-25 MCG DSDV Inhale 1 [...] nasal spray levocetirizine (XYZAL) 5 MG tablet kvrqfhuqipl-mcsrvgzwq-dradnbif (Trelegy Ellipta) 200-62.5-25 mcg DsDv montelukast (SINGULAIR) 10 mg tablet Asthma Relevant Medications levocetirizine (XYZAL) 5 MG tablet pxsnlglgrjx-ydlzuevpy-nfssljxm (Trelegy Ellipta) 200-62.5-25 mcg DsDv montelukast (SINGULAIR) 10 mg tablet Cardiovascular and Mediastinum PE (pulmonary thromboembolism) ([facility]) Relevant Medications apixaban (Eliquis) 5 mg Tab Other Hypercholesterolemia Relevant Medications simvastatin (ZOCOR) 40 MG tablet Other Visit Diagnoses Mild major depression Relevant Medications buPROPion (WELLBUTRIN XL) 300 MG 24 hr tablet DULoxetine (CYMBALTA) 60 MG capsule DULoxetine (CYMBALTA) 30 MG capsule Current moderate episode of major depressive disorder without prior episode ([facility]) Relevant Medications buPROPion (WELLBUTRIN XL) 300 MG 24 hr tablet DULoxetine (CYMBALTA) 60 MG capsule DULoxetine (CYMBALTA) 30 MG capsule Hypothyroidism, unspecified type Relevant Medications levothyroxine (SYNTHROID, LEVOTHROID) 75 MCG tablet Hyperlipidemia, unspecified hyperlipidemia type Relevant Medications simvastatin (ZOCOR) 40 MG tablet Morbid obesity with body mass index (BMI) of 40.0 or higher ([facility]) Relevant Medications semaglutide, weight loss, (Wegovy) 0.25 [...] Singulair have been renewed. She is advised tocontinue using meclizine as needed. She is also advised to reduce her Protonix dosage from 40 mg to20 mg and to take it only as [...] for today's visit. SARA ALVAREZ MD [facility] [address] [facility] [address] [place] [id number] Dept: [phone] 04/12/2024 1:43 PM Depression Screening Little interest [...] made it for you to do your work,take care of things at home, or get along with other people? Somewhat difficult documented in this [id number] History of Present illness Narrative* Sara Alvarez MD - 11/22/2024 1:53 PM EST Subjective Patient ID: Lola Drew is a [...] headaches and has not experienced any headaches sinceher last visit. She has been on Protonix [...] Take 3 mL by nebulization 3 (three) timesa day . MECLIZINE (ANTIVERT) 25 MG TABLET [...] call 911 . NONFORMULARY CPAP 9cm H20 ([facility]) in [facility] ONDANSETRON (ZOFRAN-ODT) 4 MG DISINTEGRATING TABLET Dissolve [...] Take 1 (one) tablet (5 mg total) bymouth 2 (two) times a day . BUPROPION [...] (one) spray into each nostril daily . PJPPJNTHBXD-DGATMTVCD-PZAVJXTU (TRELEGY ELLIPTA) 200-62.5-25 MCG DSDV blcimdgbuap-blbecpaxn-smshvfql (Trelegy Ellipta) 200-62.5-25 mcg DsDv Inhale 1 [...] (one) tablet (40 mg total) by mouth daily. Discontinued Medications ROZPTVTDBNV-JWFUCDOFA-SYLDOHMG (TRELEGY ELLIPTA) 200-62.5-25 MCG DSDV Inhale 1 [...] nasal spray levocetirizine (XYZAL) 5 MG tablet hbfrfnyblir-tzcfdsfoc-sskpspyg (Trelegy Ellipta) 200-62.5-25 mcg DsDv montelukast (SINGULAIR) 10 mg tablet Asthma Relevant Medications levocetirizine (XYZAL) 5 MG tablet ytdiyvbfdye-gliqvkuaq-cwgkdkkk (Trelegy Ellipta) 200-62.5-25 mcg DsDv montelukast (SINGULAIR) 10 mg tablet JOHNATHAN on CPAP History of JOHNATHAN confirmed with sleep study , need new CPAP supplies this year Relevant Medications levocetirizine (XYZAL) 5 MG tablet qlfzsvlatzn-gsnqeewvy-rmaichlv (Trelegy Ellipta) 200-62.5-25 mcg DsDv montelukast (SINGULAIR) [...] Singulair have been renewed. She is advised tocontinue using meclizine as needed. She is also advised to reduce her Protonix dosage from 40 mg to20 mg and to take it only as [...] for today's visit. SARA ALVAREZ MD [facility] [address] [facility] [address] [facility] [address] Dept: [phone] 04/12/2024 1:43 PM Depression Screening Little interest [...] made it for you to do your work,take care of things at home, or get along with other people? Somewhat difficult documented in this [id number] History of Present illness Narrative* Rogelio Panda CNP - 11/17/2024 10:45 AM EST Hematology/Oncology Clinic Follow Up Note Patient ID: [...] nodules of the lower lobes measuring up to4 mm. She had her right doppler ultrasound [...] heparin bolus and infusion. Patient admitted to [place] ICU for further evaluation of pulmonary embolisms [...] the right lower extremity. She was discharged onEliquis. She denies any recent surgery or travel prior to her VTE. No previous history of VTE, no family history of clotting disorder. She was again seen in the ED on 07/30/24 for bronchitis ang given steroidsand doxycycline. Shortness of breath on exertion, fatigue, [...] total) by mouth daily Start: 10/21/24. 30 tablet0 buPROPion (WELLBUTRIN XL) 300 MG 24 hr [...] each nostril daily . 16 g 1 laeidzkyyks-erluzvzct-rfofnimp (Trelegy Ellipta) 200-62.5-25 mcg DsDv Inhale 1 (one) Inhalation. daily . 28 each 3 yiustnztddy-kaetafhmh-qfoehuao (Trelegy Ellipta) 200-62.5-25 mcg DsDv Inhale 1 (one) Inhalation. daily . 28 each 3 furosemide (LASIX) 40 MG tablet Take 1 (one) tablet (40 mg total) by mouth 2 (two) times a day . ipratropium-albuteroL (DUO-NEB) 0.5-2.5 mg/3 ml nebulizer Take 3 mL by nebulization 3 (three) timesa day . 270 mL 2 levothyroxine (SYNTHROID, [...] 0 NONFORMULARY CPAP 9cm H20 ([facility]) in [facility] ondansetron (ZOFRAN-ODT) 4 MG disintegrating tablet Dissolve 1 (one) tablet (4 mg total) on top of tongue every 6 to 8 hours as needed for nausea . 20 tablet 0 pantoprazole (PROTONIX) 40 MG tablet Take by mouth . potassium chloride (MICRO-K) 10 MEQ CR capsule Take 1 (one) capsule (10 mEq total) by mouth daily .90 capsule 1 simvastatin (ZOCOR) 40 MG tablet [...] Socioeconomic History Marital status: Occupational History Employer: [employer] Tobacco Use Smoking status: Former Current packs/day: [...] y.o. female with a history of pulmonary embolism,vitamin D deficiency, osteopenia, sleep apnea, hypercholesterolemia, GERD, [...] deep vein thrombosis in the mid peroneal veinsof the right lower extremity and no progression/extension [...] Pulmonology. COPD: per history. She follows with [facility] Pulmon[facility]. Follow up as scheduled. Routine cancer [...] Full Code ARTHUR Boothe documented in this [id number] NoteHematology/Oncology Clinic Follow Up Note Patient ID: Lola [...] heparin bolus and infusion. Patient admitted to [place] ICU for further evaluation of pulmonary embolisms [...] each nostril daily . 16 g 1 lwnuxkewuzg-gqhfcvklf-xjwbwwsg (Trelegy Ellipta) 200-62.5-25 mcg DsDv Inhale 1 (one) Inhalation. daily . 28 each 3 qgufnzeorgv-dzkakrjqy-gscbdqwa (Trelegy Ellipta) 200-62.5-25 mcg DsDv Inhale 1 (one) Inhalation. daily . 28 each 3 furosemide (LASIX) 40 MG tablet Take 1 (one) tablet (40 mg total) by mouth 2 (two) times a day . ipratropium-albuteroL (DUO-NEB) 0.5-2.5 mg/3 ml nebulizer Take 3 mL by nebulization 3 (three) times a day . 270 mL 2 levothyroxine (SYNTHROID, LEVOTHROID) 75 MCG tablet (more content not included)...[facility]01-14-2025 Instructions* Patient Instructions * Rogelio Panda CNP - 11/16/2024 10:02 AM EST Continue Eliquis Repeat Doppler ultrasound in 3 months (February, Follow up in 3 months for results documented in this [id number] NoteSubjective Patient ID: Lola Drew is a 74 [...] Judgment normal. OARRS/NARxCHECK Repo (more content not included)...[facility] 10-28-2024 History of Present illness Narrative* Sara Alvarez MD - 10/28/2024 11:28 AM EST Subjective Patient ID: Lola Drew is a [...] received the RSV vaccine. She has been self- medicating with Aleve, Ariella, and Tylenol. She was hospitalized last week for an eye procedure,during which she experienced chest pressure and jaw [...] (one) spray into each nostril daily . KXNWYTDNTMI-VIGWCTQDN-WLQIYJLF (TRELEGY ELLIPTA) 200-62.5-25 MCG DSDV Inhale 1 (one) Inhalation. daily . RPVPYYFJOVM-ZESLKOXQF-MZXSVDNQ (TRELEGY ELLIPTA) 200-62.5-25 MCG DSDV Inhale 1 (one) Inhalation. daily . FUROSEMIDE (LASIX) 40 MG TABLET Take 1 (one) tablet (40 mg total) by mouth 2 (two) times a day . IPRATROPIUM-ALBUTEROL (DUO-NEB) 0.5-2.5 MG/3 ML NEBULIZER Take 3 mL by nebulization 3 (three) timesa day . LEVOTHYROXINE (SYNTHROID, LEVOTHROID) 75 MCG [...] call 911 . NONFORMULARY CPAP 9cm H20 ([facility]) in [facility] ONDANSETRON (ZOFRAN-ODT) 4 MG DISINTEGRATING TABLET Dissolve [...] today's visit. My ongoing relationship with Lola Drew requires continued responsibility and cognitive effort of being the focal point for all services related to chronic condition(s). Return in 1 day (on 10/29/2024), or if symptoms worsen or fail to improve. SARA ALVAREZ MD [facility] [address] [facility] [address] [facility] [id number] Dept: [phone] 04/12/2024 1:43 PM Depression Screening Little interest [...] made it for you to do your work,take care of things at home, or get along with other people? Somewhat difficult documented in this [id number] Instructions* Patient Instructions* Sara Alvarez MD - 10/28/2024 11:28 AM EST STEADI Low Risk Patient Instructions: Your Falls Screening today shows that you are at low risk for falls. To further protect yourself from falls and maintain your independence, we recommend: 1. Read through the brochure, What You Can Do to Prevent Falls (from CDC). 2. Go through the brochure, Check for Safety: A Home Fall Prevention Checklist for Older Adults (from [facility]), and make changes as recommended. 3. Join [...] blankets, or other objects on the floor? A.stonework supervisor things that are on the floor. Always keep objects off the floor. Q: Do you have to walk over or around wires or cords (like lamp, telephone, or extension cords)? A. Coil or tape cords and wires next to the wall so you can t trip over them. If needed, have an commercial journeyman electrician put in another outlet. STAIRS AND STEPS: Look at the stairs you use both inside and outside your home. Q: Are there papers, shoes, books, or other objects on the stairs? A. stonework supervisor things on the stairs. Always keep objects off stairs. Q: Are some steps broken or uneven? A. Fix loose or uneven steps. Q: Are you missing a light over the stairway? A. Have an commercial journeyman electrician put in an overhead light at the top and bottom of the stairs. Q: Do you have only one light switch for your stairs (only at the top or at the bottom of the stairs)? A. Have an commercial journeyman electrician put in a light switch at the top and bottom of the stairs. You can get lightswitches that glow. Q: Has the stairway light [...] at all the medicines you take, even wagv-dhc-pylotso medicines.Some medicines can make you sleepy or dizzy. [...] lightweight curtains or shades to reduce glare. [place] a contrasting color on the top edge of all steps so you can see the stairs better. For example, use a light color paint on dark wood. To access this brochure online, please visit the CDC website at http://www.cdc.gov/steadi/pdf/check_for_safety_brochure-a.pdf Chair Rise Exercise What it does: Strengthens [...] of you, keeping your back & neck straight& and chest slightly forward. 3. Breathe in [...] instructions, please visit the CDC website at http://www.cdc.gov/steadi/pdf/chair_rise_exercise-a.pdf Stepping On is an evidence based program [...] vision, and medications. Classes are offered at [facility]. To find out specifics about a class, please call [phone]. Merrick chi: Moving for Better Balance involves low impact exercise. The 12-week class is offered for three hours per week and is led by a trained chemistry instructor. It is intended for people aged [...] additional resources about fall prevention please contact: [facility] Violence and Injury Prevention Program at [phone] or HealthyO@[facility].[place].gov A Matter of Balance: Managing Concerns about Falls is an evidence based program designed to reduce the fear of falling and increase activity levels of older adults. A trained registered vascular technologist (rvt) leads 8 two-hour sessions for small groups [...] at home. Classes are offered in all [address] [place] [address] in [place]. For more information about specific classes near you, please visit http://aging.[place].gov/steadyu/resources/matterofbalance.aspx. documented in this [id number] History of Present illness Narrative* Lorena Bell MA - 10/21/2024 1:54 PM EST CALLED PT LMOM INFORMED PATIENT TO CALL BACK TO SCHEDULE ROSIE * Sara Alvarez MD - 10/21/2024 1:18 PM EST I see , please offer ROSIE, until appointment needs to track her blood pressure , heart rate and weight please , thank you * Lorena Bell MA - 10/21/2024 1:17 PM EST IT WAS NOTED THAT ECHO WAS COMPLETED IN HOSPITAL WHY APPT WAS CANCELED * Lorena Bell MA - 10/21/2024 1:16 PM EST Images from the original note were not [...] that Dr. Ibanez reviewed her IP echo * Sara Alvarez MD - 10/21/2024 1:09 PM EST Her appointment with cardiology was cancelled not sure why , that would be the most appropriate however if she doesn't have anything in the future with cardiology I will see her for ROSIE. * Lorena Bell MA - 10/21/2024 10:38 AM EST PLEASE REVIEW,THANK YOU * Melissa Enrique RN - 10/21/2024 10:34 AM EST Images from the original note were not [...] Outpatient Testing Please follow up with your medical records custodian and PCP. Continue annual low dose lung screening Results Pending At Discharge None Clinical Summary Lola Drew is a 74 y.o. 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 Angina DVT / PE 07/2024 Pulmonary [...] tablet NONFORMULARY CPAP 9cm H20 ([facility]) in [facility] ondansetron 4 MG disintegrating tablet Commonly known [...] as needed for migraine Max of 200 mgin 24hrs, do not treat more than 3 times a week . Quantity: 10 tablet * Trelegy Ellipta 200-62.5-25 mcg Dsdv Generic drug: exszcsrjldp-yvqailirm-pkxlqxfe Inhale 1 (one) Inhalation. daily . Quantity: 28 each * Trelegy Ellipta 200-62.5-25 mcg Dsdv Generic drug: hyqenzzbjqu-kbmqlwang-qxvgvwey Inhale 1 (one) Inhalation. daily . Quantity: 28 each * There are duplicate medications prescribed to the patient Physician(s) Follow Up: Jens Ibanez MD [address] [facility] [address] Schedule an appointment as soon as possible for a visit Sara Alvarez MD [address] [phone] Follow up As needed Future Appointments Date Time Provider Department Center 11/01/2024 10:15 AM Rogelio Panda HOSPITAL PRODUCT SPECIALIST [facility] 11/22/2024 1:40 PM Sara Alvarez MD [facility] documented in this [id number] NoteI see , please offer ROSIE, until appointment needs to track her blood pressure , heart rate and weight please , thank you AUTHENTICATED BY SARA ALVAREZ, ON 10/21/2024 13:19:25[facility] [id number] History of Present illness Narrative* Sara Alvarez MD - 10/21/2024 1:18 PM EST I see , please offer ROSIE, until appointment needs to track her blood pressure , heart rate and weight please , thank you * Lorena Bell MA - 10/21/2024 1:17 PM EST IT WAS NOTED THAT ECHO WAS COMPLETED IN HOSPITAL WHY APPT WAS CANCELED * Lorena Bell MA - 10/21/2024 1:16 PM EST Images from the original note were not [...] that Dr. Ibanez reviewed her IP echo * Sara Alvarez MD - 10/21/2024 1:09 PM EST Her appointment with cardiology was cancelled not sure why , that would be the most appropriate however if she doesn't have anything in the future with cardiology I will see her for ROSIE. * Lorena Bell MA - 10/21/2024 10:38 AM EST PLEASE REVIEW,THANK YOU * Melissa Enrique RN - 10/21/2024 10:34 AM EST Images from the original note were not [...] Outpatient Testing Please follow up with your medical records custodian and PCP. Continue annual low dose lung screening Results Pending At Discharge None Clinical Summary Lola Drwe is a 74 y.o. 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 Angina DVT / PE 07/2024 Pulmonary [...] tablet NONFORMULARY CPAP 9cm H20 ([facility]) in [facility] ondansetron 4 MG disintegrating tablet Commonly known [...] as needed for migraine Max of 200 mgin 24hrs, do not treat more than 3 times a week . Quantity: 10 tablet * Trelegy Ellipta 200-62.5-25 mcg Dsdv Generic drug: cpxbnbbxdqz-pjdbgxatq-yhqwtsoq Inhale 1 (one) Inhalation. daily . Quantity: 28 each * Trelegy Ellipta 200-62.5-25 mcg Dsdv Generic drug: awgsljxqsjz-docnsinwj-jwjwzqqc Inhale 1 (one) Inhalation. daily . Quantity: 28 each * There are duplicate medications prescribed to the patient Physician(s) Follow Up: Jens Ibanez MD [address] [place] [address] Schedule an appointment as soon as possible for a visit Sara Alvarez MD [address] [phone] Follow up As needed Future Appointments Date Time Provider Department Center 11/01/2024 10:15 AM Rogelio Panda CNP [facility] 11/22/2024 1:40 PM Sara Alvarez MD [facility] documented in this [id number] History of Present illness Narrative* Lorena Bell MA - 10/21/2024 1:17 PM EST IT WAS NOTED THAT ECHO WAS COMPLETED IN HOSPITAL WHY APPT WAS CANCELED * Lorena Bell MA - 10/21/2024 1:16 PM EST Images from the original note were not [...] that Dr. Ibanez reviewed her IP echo * Sara Alvarez MD - 10/21/2024 1:09 PM EST Her appointment with cardiology was cancelled not sure why , that would be the most appropriate however if she doesn't have anything in the future with cardiology I will see her for ROSIE. * Lorena Bell MA - 10/21/2024 10:38 AM EST PLEASE REVIEW,THANK YOU * Melissa Enrique RN - 10/21/2024 10:34 AM EST Images from the original note were not [...] Outpatient Testing Please follow up with your medical records custodian and PCP. Continue annual low dose lung screening Results Pending At Discharge None Clinical Summary Lola Drew is a 74 y.o. 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 Angina DVT / PE 07/2024 [...] tablet NONFORMULARY CPAP 9cm H20 ([facility]) in [facility] ondansetron 4 MG disintegrating tablet Commonly known [...] as needed for migraine Max of 200 mgin 24hrs, do not treat more than 3 times a week . Quantity: 10 tablet * Trelegy Ellipta 200-62.5-25 mcg Dsdv Generic drug: djkgjjcshmn-hgztzgyum-eifjfrxl Inhale 1 (one) Inhalation. daily . Quantity: 28 each * Trelegy Ellipta 200-62.5-25 mcg Dsdv Generic drug: aqzcvspdhwh-mvmtgsnxp-eptqcpbr Inhale 1 (one) Inhalation. daily . Quantity: 28 each * There are duplicate medications prescribed to the patient Physician(s) Follow Up: Jens Ibanez MD [address] [place] [address] Schedule an appointment as soon as possible for a visit Sara Alvarez MD [address] [phone] Follow up As needed Future Appointments Date Time Provider Department Center 11/01/2024 10:15 AM Rogelio Panda, HOSPITAL PRODUCT SPECIALIST [facility] 11/22/2024 1:40 PM [facility] documented in this [id number] History of Present illness Narrative* Lorena Bell MA - 10/21/2024 1:16 PM EST Images from the original note were not [...] that Dr. Ibanez reviewed her IP echo * Sara Alvarez MD - 10/21/2024 1:09 PM EST Her appointment with cardiology was cancelled not sure why , that would be the most appropriate however if she doesn't have anything in the future with cardiology I will see her for ROSIE. * Lorena Bell MA - 10/21/2024 10:38 AM EST PLEASE REVIEW,THANK YOU * Melissa Enrique RN - 10/21/2024 10:34 AM EST Images from the original note were not [...] Outpatient Testing Please follow up with your medical records custodian and PCP. Continue annual low dose lung screening Results Pending At Discharge None Clinical Summary Lola Drew is a 74 y.o. 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 Angina DVT / PE 07/2024 Pulmonary [...] tablet NONFORMULARY CPAP 9cm H20 ([facility]) in [facility] ondansetron 4 MG disintegrating tablet Commonly known [...] as needed for migraine Max of 200 mgin 24hrs, do not treat more than 3 times a week . Quantity: 10 tablet * Trelegy Ellipta 200-62.5-25 mcg Dsdv Generic drug: zoraxhbynrc-myiczhtiv-efthpwib Inhale 1 (one) Inhalation. daily . Quantity: 28 each * Trelegy Ellipta 200-62.5-25 mcg Dsdv Generic drug: idlxwbmxxbu-zbmwvelxh-wwrroefs Inhale 1 (one) Inhalation. daily . Quantity: 28 each * There are duplicate medications prescribed to the patient Physician(s) Follow Up: Jens Ibanez MD [address] [place] [address] Schedule an appointment as soon as possible for a visit Sara Alvarez MD [address] [address] Follow up As needed Future Appointments Date Time Provider Department Center 11/01/2024 10:15 AM Rogelio Panda, HOSPITAL PRODUCT SPECIALIST [facility] 11/22/2024 1:40 PM Sara Alvarez MD [facility] documented in this [id number] NoteHer appointment with cardiology was cancelled not sure why , that would be the most appropriate however if she doesn't have anything in the future with cardiology I will see her for ROSIE. AUTHENTICATED BY SARA ALVAREZ, ON 10/21/2024 13:10:20[facility]12-19-2024 History of Present illness Narrative* Sara Alvarez MD - 10/21/2024 1:09 PM EST Her appointment with cardiology was cancelled not sure why , that would be the most appropriate however if she doesn't have anything in the future with cardiology I will see her for ROSIE. * Lorena Bell MA - 10/21/2024 10:38 AM EST PLEASE REVIEW,THANK YOU * Melsisa Enrique, SOFIYA - 10/21/2024 10:34 AM EST Images from the original note were not [...] Outpatient Testing Please follow up with your medical records custodian and PCP. Continue annual low dose lung screening Results Pending At Discharge None Clinical Summary Lola Drew is a 74 y.o. 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 Angina DVT / PE 07/2024 Pulmonary [...] nitroglycerin COPD Not in acute exacerbation Continue Laurent Bergman-Neb, Spriva, Dulera, albuterol prn GERD Continue Protonix [...] tablet NONFORMULARY CPAP 9cm H20 ([facility]) in [facility] ondansetron 4 MG disintegrating tablet Commonly known [...] as needed for migraine Max of 200 mgin 24hrs, do not treat more than 3 times a week . Quantity: 10 tablet * Trelegy Ellipta 200-62.5-25 mcg Dsdv Generic drug: ybdxfarplgp-ewmzbzomu-fytktreu Inhale 1 (one) Inhalation. daily . Quantity: 28 each * Trelegy Ellipta 200-62.5-25 mcg Dsdv Generic drug: ecndemkvgsk-lbmgwfvbr-tyemrikn Inhale 1 (one) Inhalation. daily . Quantity: 28 each * There are duplicate medications prescribed to the patient Physician(s) Follow Up: Jens Ibanez MD [address] [facility] [address] Schedule an appointment as soon as possible for a visit Sara Alvarez MD [address] [address] Follow up As needed Future Appointments Date Time Provider Department Center 11/01/2024 10:15 AM Rogelio Panda CNP [facility] 11/22/2024 1:40 PM Sara Alavrez MD [facility] documented in this [id number] History of Present illness Narrative* Lorena Bell MA - 10/21/2024 10:38 AM EST PLEASE REVIEW,THANK YOU * Melissa Enrique RN - 10/21/2024 10:34 AM EST Images from the original note were not [...] Outpatient Testing Please follow up with your medical records custodian and PCP. Continue annual low dose lung screening Results Pending At Discharge None Clinical Summary Lola Drew is a 74 y.o. 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 Angina DVT / PE 07/2024 Pulmonary [...] tablet NONFORMULARY CPAP 9cm H20 ([facility]) in [facility] ondansetron 4 MG disintegrating tablet Commonly known [...] as needed for migraine Max of 200 mgin 24hrs, do not treat more than 3 times a week . Quantity: 10 tablet * Trelegy Ellipta 200-62.5-25 mcg Dsdv Generic drug: uhfwmyvsqsg-hqiwzivzi-yqtgqfqv Inhale 1 (one) Inhalation. daily . Quantity: 28 each * Trelegy Ellipta 200-62.5-25 mcg Dsdv Generic drug: ufnbyxzectm-vhekyyrpz-wmsvvdbb Inhale 1 (one) Inhalation. daily . Quantity: 28 each * There are duplicate medications prescribed to the patient Physician(s) Follow Up: Jens Ibanez MD [address] [facility] [address] Schedule an appointment as soon as possible for a visit Sara Alvarez MD [address] [address] Follow up As needed Future Appointments Date Time Provider Department Center 11/01/2024 10:15 AM Rogelio Panda CNP [facility] 11/22/2024 1:40 PM Sara Alvarez MD [facility] documented in this [id number] Plan of care note* Plan of Care - Tiarra Gomez RN - 10/20/2024 2:15 PM EST Problem: Actual or potential alteration in health Goal: Absence of healthcare acquired conditions Outcome: Completed Goal: Knowledge of Interdisciplinary Plan of Care Outcome: Completed Goal: Knowledge of Enviroment Outcome: Completed [id number] Miscellaneous Notes* Plan of Care - Tiarra Gomez RN - 10/20/2024 2:15 PM EST Problem: Actual or potential alteration in health Goal: Absence of healthcare acquired conditions Outcome: Completed Goal: Knowledge of Interdisciplinary Plan of Care Outcome: Completed Goal: Knowledge of Enviroment Outcome: Completed * Plan of Care - Lori Bryant RN - 10/20/2024 12:33 AM EST Problem: Actual or potential alteration in health Goal: Absence of healthcare acquired conditions Outcome: Partially Met Goal: Knowledge of Interdisciplinary Plan of Care Outcome: Partially Met Goal: Knowledge of Enviroment Outcome: Partially Met * Plan of Care - Marlene Bergeron RN - 10/19/2024 2:50 PM EST Problem: Actual or potential alteration in health Goal: Absence of healthcare acquired conditions Outcome: Partially Met Goal: Knowledge of Interdisciplinary Plan of Care Outcome: Partially Met Goal: Knowledge of Enviroment Outcome: Partially Met documented in this [id number] NoteS DISCHARGE SUMMARY -- [facility] Lola Drew Admitted: 10/19/2024 Discharge Date: 10/20/24 PCP Handoff Recommended Outpatient Testing Please follow up with your medical records custodian and PCP. Continue annual low dose lung screening Results Pending At Discharge None Clinical Summary Lola Drew is a 74 y.o. 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 Angina DVT / PE 07/2024 [...] tablet NONFORMULARY CPAP 9cm H20 ([facility]) in [facility] ondansetron 4 MG disintegrating tablet Commonly known [...] Trelegy Ellipta 200-62.5-25 mcg Dsdv Generic drug: puakqbihqpa-tcddxynty-luztrqms Inhale 1 (one) Inhalation. daily . Quantity: 28 each * Trelegy Ellipta 200-62.5-25 mcg Dsdv Generic drug: rkzuvewtltm-mdecmmmhy-jzvgtscl Inhale 1 (one) Inhalation. daily . Quantity: 28 each * There are duplicate medications prescribed to the patient Physician(s) Follow Up: Altagracia Ibanez (more content not included)...[facility]12-18-2024 Hospital course Narrative* Kim Lyons, HOSPITAL PRODUCT SPECIALIST - 10/20/2024 2:11 PM EST Images from the original note were not included. [facility] DISCHARGE SUMMARY -- [facility] Lola Drew Admitted: 10/19/2024 Discharge Date: 10/20/24 PCP Handoff Recommended Outpatient Testing Please follow up with your medical records custodian and PCP. Continue annual low dose lung screening Results Pending At Discharge None Clinical Summary Lola Drew is a 74 y.o. 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 Angina DVT / PE 07/2024 Pulmonary [...] Quantity: 90 tablet NONFORMULARY CPAP 9cm H20 (DASMD) in [facility] ondansetron 4 MG disintegrating tablet Commonly known [...] as needed for migraine Max of 200 mgin 24hrs, do not treat more than 3 times a week . Quantity: 10 tablet * Trelegy Ellipta 200-62.5-25 mcg Dsdv Generic drug: tlrxksmbtnv-acxjzjeci-gpewkcka Inhale 1 (one) Inhalation. daily . Quantity: 28 each * Trelegy Ellipta 200-62.5-25 mcg Dsdv Generic drug: eggkrdsmssb-jjzrdhkqz-sakceqyx Inhale 1 (one) Inhalation. daily . Quantity: 28 each * There are duplicate medications prescribed to the patient Physician(s) Follow Up: Jens Ibanez MD [address] [id number] Schedule an appointment as soon as possible for a visit Sara Alvarez MD [address] [phone] Follow up As needed Condition at Discharge: Stable Disposition: Home I reviewed discharge recommendations with the patient in person. Patient instructions, including activity, were given to the patient/family at discharge. On day of discharge I saw Lolara Drew and spent: > 30 minutes on discharge. Completed by: Kim Lyons CNP on 10/20/24, 2:11 PM documented in this [id number] History of Present illness Narrative* Angélica Carias - 10/20/2024 1:15 PM EST Spiritual Care Progress Note Completed by: Angélica Carias Person(s) Present During this Visit: Patient Not Available Time Spent in Direct Patient Care: 5 Narrative: Retail Loss Prevention Investigator attempted to visit the pt while rounding on the unit. Pt was not in her room atthat time. Retail Loss Prevention Investigator will visit as time allows and remains available upon request. Patients Response to Pastoral Care: Timing of Visit Not Optimal. Visit Rescheduled Planning for Future Visits: PRN 10/20/24 1300 Visit Background Visit With Patient Not Available Visit By Staff Retail Loss Prevention Investigator Visit Progression Attempt Visit Requested By Retail Loss Prevention Investigator Initiated Visit Source Retail Loss Prevention Investigator Initiated Visit Type Inpatient;Rounding Visit Circumstances and Events Routine Visit Visit Length (minutes) 5 Patient's Response to Pastoral Care Timing of Visit Not Optimal. Visit Rescheduled Visit Planning PRN Spiritual Assessment Not assessed during visit Oriental Orthodox Assessment Not assessed during this visit Family assessment provided? Not assessed during this visit Angélica Carias MA Staff Retail Loss Prevention Investigator Pastoral Care Department [facility] [phone] On-call documented in this [id number] Consult note* Ana Maria Henry RN - 10/20/2024 8:26 AM ESTAssociated Order(s): IP CONSULT TO CARE MANAGEMENT Care Management Consult Note Date: 10/20/2024 Time: 8:26 AM Patient Name: Lola Drew Date of : 1950 Reason for Consult: Discharge planning Discharge Plan: Plan A: Home Discharging Transportation Plan: Discharge Plan Status: CM consult completed yesterday in the ED by police manager, Salome Lunsford RN- [facility] note. Pt denies needs. 1421- Pt discharge [...] No (right hand hurts with weather changes) [id number] Consult note* Ana Maria Henry RN - 10/20/2024 8:26 AM ESTAssociated Order(s): IP CONSULT TO CARE MANAGEMENT Care Management Consult Note Date: 10/20/2024 Time: 8:26 AM Patient Name: Lola Drew Date of : 1950 Reason for Consult: Discharge planning Discharge Plan: Plan A: Home Discharging Transportation Plan: Discharge Plan Status: CM consult completed yesterday in the ED by police manager, Salome Lunsford RN- [facility] note. Pt denies needs. 1421- Pt discharge [...] No (right hand hurts with weather changes) * Salome Stanford RN - 10/19/2024 12:41 PM EST Care Management Consult Note Date: 10/19/2024 Time: 12:41 PM Patient Name: Lola Drew Date of : 1950 Reason for Consult: Discharge Plan: Plan A: Home Discharging Transportation Plan: Discharge Plan Status: TBD Assessment and Background Information: Patient presented to the ED from [facility] with chest pain. Labs and x-rays completed in the ED. Patient stated that her PCP is Dr. Youseef and that her insurance is [employer]. Patient stated that she lives in a 2 story home that she only uses the main floor of the home that has 2 steps to get into the home. Patient stated that she lives with her and daughter lives upstairs. Patient stated that she is compliant with her medications and that she has no insecuritieswith food/ medical to report. Patient stated that there are no services int he home at this time. Patient stated that she has not had any falls in the last 6 months and that she still drives. Patientstated that she does not drink but she [...] be moved to the medical floor for furthertreatment. CM to follow. Living Arrangements: Spouse/significant other, [...] hurts with weather changes) documented in this [id number] Plan of care note* Plan of Care - Lori Bryant RN - 10/20/2024 12:33 AM EST Problem: Actual or potential alteration in health Goal: Absence of healthcare acquired conditions Outcome: Partially Met Goal: Knowledge of Interdisciplinary Plan of Care Outcome: Partially Met Goal: Knowledge of Enviroment Outcome: Partially Met [id number] Plan of care note* Plan of Care - Marlene Bergeron RN - 10/19/2024 2:50 PM EST Problem: Actual or potential alteration in health Goal: Absence of healthcare acquired conditions Outcome: Partially Met Goal: Knowledge of Interdisciplinary Plan of Care Outcome: Partially Met Goal: Knowledge of Enviroment Outcome: Partially Met [id number] Consult note* Salome Stanford RN - 10/19/2024 12:41 PM EST Care Management Consult Note Date: 10/19/2024 Time: 12:41 PM Patient Name: Lola Drew Date of : 1950 Reason for Consult: Discharge Plan: Plan A: Home Discharging Transportation Plan: Discharge Plan Status: TBD Assessment and Background Information: Patient presented to the ED from [facility] with chest pain. Labs and x-rays completed [...] her medications and that she has no insecuritieswith food/ medical to report. Patient stated that there are no services int he home at this time. Patient stated that she has not had any falls in the last 6 months and that she still drives. Patientstated that she does not drink but she [...] be moved to the medical floor for furthertreatment. CM to follow. Living Arrangements: Spouse/significant other, [...] No (right hand hurts with weather changes) [id number] History and physical note* Kylah Hendricks PA-C - 10/19/2024 11:39 AM EST [facility] HISTORY AND PHYSICAL -- [facility] Patient Name: Lola Drew : 1950 MR #: [id number] Admit Date: 10/19/2024 Physicians: Sara Alvarez MD (Family); No ref. provider found (Referring) Lola Drew is a 74 y.o. 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 Angina History of DVT / PE [...] a history of DVT/PE on Eliquis in July2024. As a result of the PE the patient was also diagnosed with severe pulmonary HTN and RV dysfunction The patient presented to [facility] today after experiencing chest pain prior to cataract removal surgery this AM at [facility]. The patient reports chest pain that start [...] vs stress test if troponin remains normal [id number] History and physical note* Kylah Hendricks PA-C - 10/19/2024 11:39 AM EST [facility] HISTORY AND PHYSICAL -- [facility] Patient Name: Lola Drew : 1950 MR #: [id number] Admit Date: 10/19/2024 Physicians: Sara Alvarez MD (Family); No ref. provider found (Referring) Lola Drew is a 74 y.o. 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 Angina History of DVT / PE [...] a history of DVT/PE on Eliquis in July2024. As a result of the PE the patient was also diagnosed with severe pulmonary HTN and RV dysfunction The patient presented to [facility] today after experiencing chest pain prior to cataract removal surgery this AM at [facility]. The patient reports chest pain that start [...] if troponin remains normal documented in this [id number] Emergency department Triage note* Soumya Somers RN - 10/19/2024 10:01 AM EST Pt sent by [facility] after experiencing chest discomfort prior to surgery. Pt was recommended to visit ED. Reports hx of DVTs and currently has a DVT in leg, no cardiac hx. [id number] Emergency department Note* Soumya Somers RN - 10/19/2024 10:01 AM EST Pt sent by [facility] after experiencing chest discomfort prior to surgery. Pt was recommended to visit ED. Reports hx of DVTs and currently has a DVT in leg, no cardiac hx. * Joseline Ann RN - 10/19/2024 9:58 AM EST Bed: 14 Expected date: Expected time: Means of arrival: Comments: NEXT 2 documented in this [id number] Emergency department Note* Joseline Ann RN - 10/19/2024 9:58 AM EST Bed: 14 Expected date: Expected time: Means of arrival: Comments: NEXT 2 [id number] [facility] INTERVENTIONAL CARDIOLOGY CLINIC NOTE HISTORY OF PRESENT [...] mcg/actuation nasal spray 1 spray, Nasal, Daily sschdnhtvfm-qwslidztq-vafutycm (Trelegy Ellipta) 200-62.5-25 mcg DsDv 1 Inhalation., Inhalation, Daily ttvrnqwyqsh-aaojcrkql-gkzdrlcg (Trelegy Ellipta) 200-62.5-25 mcg DsDv 1 Inhalation., Inhalation, Daily furosemide (LASIX) 40 mg, 2 times daily ipratropium-albuteroL (DUO-NEB) 0.5-2.5 mg/3 ml nebulizer 3 mL, Nebulization, 3 times daily (RT) levothyroxine (SYNTHROID, LEVOTHROID) 75 MCG tablet 1 tablet, Daily meclizine (ANTIVERT) 25 mg, Oral, 3 times daily PRN montelukast (SINGULAIR) 10 mg, Oral, Daily NONFORMULARY CPAP 9cm H20 (DASCO) in [facility] ondansetron (ZOFRAN-ODT) 4 mg, Oral, Every 6 [...] No clubbing of fingers. Jens Ibanez MD, [facility], [facility] Interventional Cardiology/Structural Heart Disease [facility] Physicians [facility] AUTHENTICATED BY JENS IBANEZ, ON 10/18/2024 10:35:22[facility] [id number] History of Present illness Narrative* Jens Ibanez MD - 10/18/2024 10:26 AM EST [facility] INTERVENTIONAL CARDIOLOGY CLINIC NOTE HISTORY OF PRESENT ILLNESS Mrs. Lola Drew is a 74 y.o. pleasant female with VTE with PE and DVT and RV dysfunction withpulm hypertension who is here to establish outpatient [...] mcg/actuation nasal spray 1 spray, Nasal, Daily xvcsxianxwh-wtncqvnfd-myijcznn (Trelegy Ellipta) 200-62.5-25 mcg DsDv 1 Inhalation., Inhalation, Daily eghylkiicsx-czfnoudrl-jmjcjips (Trelegy Ellipta) 200-62.5-25 mcg DsDv 1 Inhalation., Inhalation, Daily furosemide (LASIX) 40 mg, 2 times daily ipratropium-albuteroL (DUO-NEB) 0.5-2.5 mg/3 ml nebulizer 3 mL, Nebulization, 3 times daily (RT) levothyroxine (SYNTHROID, LEVOTHROID) 75 MCG tablet 1 tablet, Daily meclizine (ANTIVERT) 25 mg, Oral, 3 times daily PRN montelukast (SINGULAIR) 10 mg, Oral, Daily NONFORMULARY CPAP 9cm H20 (DASCO) in [facility] ondansetron (ZOFRAN-ODT) 4 mg, Oral, Every 6 to 8 hours as needed pantoprazole (PROTONIX) 40 MG tablet Take by mouth . potassium chloride (MICRO-K) 10 MEQ CR capsule 10 mEq, Oral, Daily simvastatin (ZOCOR) 40 mg, Oral, Daily SUMAtriptan (IMITREX) 50 mg, Oral, Every 2 hour PRN, Max of 200 mg in 24hrs, do not treat more than3 times a week CARDIOVASCULAR & METABOLIC PROBLEMS [...] clubbing of fingers. Jens Ibanez MD, FAC, [facility] Interventional Cardiology/Structural Heart Disease [facility] Heart [facility] Vascular Physicians [facility] documented in this [id number] Instructions* Patient Instructions* Allen Das RN - 10/18/2024 10:14 AM EST How to contact your Care Team: Provider: Jens Ibanez MD Nurse: Allen DUVALL, RN Anode Machine Operator: Ofelia Ballard MA In case of an emergency please call 911. REFILLS: When in need for refills please call your care team or the office at [phone]. Please include medication name, pharmacy name, and specify 30-day or 90-day supply. Please check with your pharmacy within 24 hours of request for your refill. You must follow up as directed to continue current refills. Thank you! documented in this [id number] History of Present illness Narrative* Steffen Еленаchaz Hankins, HOSPITAL PRODUCT SPECIALIST - 09/16/2024 2:00 PM EST Images from the original note were not [...] viral infection, therefore she has been using zzwg-qme-iwavfaf symptomatic treatment. She states she went to [...] past medical history, past social history, past surgicalhistory, and problem list. Past Medical History: Diagnosis [...] Take 3 mL by nebulization 3 (three) timesa day . levothyroxine (SYNTHROID, LEVOTHROID) 75 MCG tablet Take 1 (one) tablet (75 mcg total) by mouth daily . montelukast (SINGULAIR) 10 mg tablet Take 1 tablet (10 mg total) by mouth daily. NONFORMULARY CPAP 9cm H20 (DASCO) in [facility] potassium chloride (MICRO-K) 10 MEQ CR capsule Take 1 (one) capsule (10 mEq total) by mouth daily . simvastatin (ZOCOR) 40 MG tablet Take 1 (one) tablet (40 mg total) by mouth daily . [DISCONTINUED] fhnytxzlxwu-eehkcnxuy-aojeqyyu (Trelegy Ellipta) 200-62.5-25 mcg DsDv Inhale 1 [...] postnasal drip, rhinorrhea, sinus pressure and sinus pain.Negative for ear discharge, mouth sores, nosebleeds, sore [...] for 5 days . COPD with asthma ([facility]) - anvcfphjlkc-ptwgbjowi-roqcugdx (Trelegy Ellipta) 200-62.5-25 mcg DsDv; Inhale 1 (one) Inhalation.daily . Discussed plan of care with patient and daughter. She does have mild expiratory wheezing throughoutlungs and rhonchi and adventitious lung sounds to [...] common side effects and adverse reactions to a ntibiotic and steroids. Discussed with patient and daughter [...] this chart may have been created with [employer] voice recognition software. Occasional wrong-word or sound-like substitutions may have occurred due to inherent limitations of the voice recognition software. Please read the chart carefully and recognize, using context, where the substitutions have occurred. Electronically signed by CHARLENE Chopra 3:42 PM documented in this [id number] NoteSubjective Patient ID: Lola Drew is a 74 [...] viral infection, therefore she has been using qrkj-dwe-bmkzvce symptomatic treatment. She states she went to [...] daily. NONFORMULARY CPAP 9cm H20 (DASCO) in [facility] potassium chloride (MICRO-K) 10 MEQ CR capsule Take 1 (one) capsule (10 mEq total) by mouth daily . simvastatin (ZOCOR) 40 MG tablet Take 1 (one) tablet (40 mg total) by mouth daily . [DISCONTINUED] qjxaxtusxse-zqajmenie-yzlckgmn (Trelegy Ellipta) 200-62.5-25 mcg DsDv Inhale 1 [...] Right eye currently dil (more content not included)...[facility] 09-16-2024 Telephone encounter Note* Telephone Encounter - Nori Fraga RN - 09/16/2024 1:18 PM EST LAST OV 08/03/24. NEXT OV SCHEDULED FOR 09/22/24. [id number] Miscellaneous Notes* Telephone Encounter - Nori Fraga RN - 09/16/2024 1:18 PM EST LAST OV 08/03/24. NEXT OV SCHEDULED FOR 09/22/24. documented in this [id number] Instructions* Patient Instructions* Rogelio Panda CNP - 08/30/2024 10:20 AM EDT Please stop at the laboratory on the 2nd floor of this building (located to the left as you step off the elevator). Tell the lab staff you have labs ordered in the system from Rogelio Panda CNP Continue Eliquis twice daily Ultrasound of right lower extremity in 3 months documented in this [id number] History of Present illness Narrative* Rogelio Panda CNP - 08/30/2024 10:00 AM EDT Hematology/Oncology Clinic Consult Note Patient ID: Lola [...] heparin bolus and infusion. Patient admitted to [place] ICU for further evaluation of pulmonary embolisms [...] the right lower extremity. She was discharged onEliquis. She denies any recent surgery or travel prior to her VTE. No previous history of VTE, no family history of clotting disorder. She was again seen in the ED on 07/30/24 for bronchitis ang given steroidsand doxycycline. Shortness of breath on exertion, fatigue, [...] each nostril daily . 16 g 1 bfqoynxatdy-sgltixrql-mzamfjeh (Trelegy Ellipta) 200-62.5-25 mcg DsDv Inhale 1 puff daily . 28 each3 furosemide (LASIX) 40 MG tablet Take 1 (one) tablet (40 mg total) by mouth 2 (two) times a day . ipratropium-albuteroL (DUO-NEB) 0.5-2.5 mg/3 ml nebulizer Take 3 mL by nebulization 3 (three) timesa day . 270 mL 2 levothyroxine (SYNTHROID, [...] 4 NONFORMULARY CPAP 9cm H20 (DASCO) in [facility] ondansetron (ZOFRAN-ODT) 4 MG disintegrating tablet Dissolve 1 (one) tablet (4 mg total) on top of tongue every 6 to 8 hours as needed for nausea . 20 tablet 0 pantoprazole (PROTONIX) 40 MG tablet Take by mouth . potassium chloride (MICRO-K) 10 MEQ CR capsule Take 1 (one) capsule (10 mEq total) by mouth daily .90 capsule 1 simvastatin (ZOCOR) 40 MG tablet [...] Socioeconomic History Marital status: Occupational History Employer: [employer] Tobacco Use Smoking status: Former Current packs/day: [...] y.o. female with a history of pulmonary embolism,vitamin D deficiency, osteopenia, sleep apnea, hypercholesterolemia, GERD, [...] at this time given that he is currentlyon Eliquis. It would be reasonable, however to [...] Pulmonology. COPD: per history. She follows with [facility] Pulmonology. Follow up as scheduled. Routine cancer screenings: Colonoscopy in 2018. Cologuard testing negative 08/16/24. Repeat in 3 years. Mammogram: 08/04/2024 Education Provided Education/Instructions given to: (x) Patient (_) Spouse (_) Parent (_) Other Barriers to Learning: (x) None (_) Yes (identify):_ Content: (x) Refer to note above (_)Other (identify):_ Evaluation/Outcome: (x) Verbalized understanding (_) Demonstrated understanding (_) Other:_ Advanced Directives: Full Code DEEPTHI Boothe- ELLE documented in this [id number] NoteHematology/Oncology Clinic Consult Note Patient ID: Lola Drew [...] heparin bolus and infusion. Patient admitted to [place] ICU for further evaluation of pulmonary embolisms [...] each nostril daily . 16 g 1 lfpbtnenylo-nqhiqjiyt-ukjnrgbk (Trelegy Ellipta) 200-62.5-25 mcg DsDv Inhale 1 [...] 4 NONFORMULARY CPAP 9cm H20 (DASCO) in [facility] ondansetron (ZOFRAN-ODT) 4 MG disintegrating tablet Dissolve [...] Father age 54 Ast (more content not included)...[facility]10-01-2024 Note Subjective Patient ID: Lola Drew is [...] Her last visit to Padma Rahman, a wafer mounter, was in 2021. Dr. Valadez initially attributed [...] are moist. Pharynx: Diogo (more content not included)...[facility]09-24-2024 Note [facility] DISCHARGE SUMMARY -- [facility] Lola Drew Admitted: 07/25/2024 Discharge Date: [...] tablet NONFORMULARY CPAP 9cm H20 (DASCO) in [facility] ondansetron 4 MG disintegrating tablet Commonly known [...] Trelegy Ellipta 200-62.5-25 mcg Dsdv Generic drug: vpiipjdsxmj-rgrmcfygn-nuipgkop Inhale 1 puff daily . Quantity: 28 [...] AM AUTHENTICATED BY THEODORE BROWN, ON 07/27/2024 13:35:[address] [place] [address] 07-26-2024 NoteHMS PROGRESS NOTE Assessment and Plan Lola Drew [...] affect AUTHENTICATED BY SULMA JANG, ON 07/26/2024 12:18:13[facility] 07-25-2024 NoteHMS PROGRESS NOTE Assessment and Plan Lola Drew [...] normal mood and affect AUTHENTICATED BY SULMA JANG ON 07/25/2024 13:19:07[facility] 07-25-2024 NoteHMS HISTORY AND PHYSICAL Patient Name: Lola Drew : 1950 SEX: female MR #: [id number] Admit Date: 07/25/2024 Physicians: Sara Alvarez MD (Family); Boby Aviles (Referring) ROOM: [address] [place] [address] Hospitalist: Byron Escobar MD Lola Drew is [...] TSH and A1c Admitted From: Home through [facility] ED Medication Reconciliation: Unverified Code Status: Full [...] of breath she was seen by her wafer mounter on 07/13/2024 was prescribed doxycycline and prednisone which she has completed patient did improve temporarily and started having cough and shortness of breath with exertion she called her wafer mounter on 07/21/2024 and did not receive a call back yet. So she went to an outlying ED workup done in the ED showed [...] and infusion. Patient will be admitted to [place] to the ICU for further evaluation of [...] Sig Start Date End (more content not included)...[facility] 07-13-2024 NoteOPG [address] [facility] [address] [facility] [address] Name: Lola Drew Age: 74 y.o. : [...] air trapping. She has a more than 39-wvdf-xxix smoking history. She states she has not [...] 1 (one) tablet (1 (more content not included)...[facility] [id number] History of Present illness Narrative* Patricia Lozano MD - 07/13/2024 9:59 AM EDT O[facility] [address] [facility] [address] [place] [address] Name: Lola Drew Age: 74 y.o. : [...] is old. She did use it with theserecent symptoms and is unsure if it was of benefit. She is unsure if she has had antibiotics within the last 6 months. PFTs done 04/20/2024 revealed moderate airway obstruction with air trapping. She has a more than 18-zqfu-tatp smoking history. She states she has not had a CT scan of the chestin approximately 2 years. She states she has [...] (one) spray into each nostril daily . vjfeyeuivhf-eksuxajfx-eitayqvi (Trelegy Ellipta) 200-62.5-25 mcg DsDv Inhale 1 [...] daily. NONFORMULARY CPAP 9cm H20 (DASCO) in [facility] ondansetron (ZOFRAN-ODT) 4 MG disintegrating tablet Dissolve [...] Take 3 mL by nebulization 3 (three) timesa day . [DISCONTINUED] fluticasone-salmeterol (ADVAIR HFA) 230-21 [...] FEF25/75 ACTUAL PRE-BD FEF25/75 PRE % PREDICTED RRC15-85 PRE Z-SCORE PEAK FLOW PREDICTED PEAK FLOW [...] FEF25/75 POST % PREDICTED FEF25/75 % CHANGE MEP67-29 POST Z-SCORE PEAK FLOW ACTUAL POST-BD PEAK [...] organism J20.9 466.0 2. COPD with asthma ([facility]) J44.89 493.20 Ambulatory referral to Pulmonology ipratropium-albuteroL (DUO-NEB) 0.5-2.5 mg/3 ml nebulizer 3. Simple chronic bronchitis ([facility]) J41.0 491.0 Ambulatory referral to Pulmonology 4. [...] is actively wheezing and has symptoms as described.Will treat her with doxycycline 100 mg twice daily for 7 days and prednisone 40 mg once daily for 5days. Continue Trelegy. DuoNeb for nebulizer. Continue rescue albuterol. Discontinue Incruse. Reviewed most recent pulmonary function testing. 2. Seasonal allergies-she should continue Singulair and Ariella. 3. Nicotine dependence cigarettes in remission and current vaping of nicotine- patient qualifies forannual lung screening CT scans of the chest. [...] months. Patricia Lozano MD documented in this [id number] Telephone encounter Note* Telephone Encounter - Nori Fraga RN - 04/27/2024 11:13 AM EDT LAST OV 04/12/24. NEXT OV SCHEDULED FOR 07/29/24. [id number] Miscellaneous Notes* Telephone Encounter - Nori Fraga RN - 04/27/2024 11:13 AM EDT LAST OV 04/12/24. NEXT OV SCHEDULED FOR 07/29/24. documented in this [id number] History of Present illness Narrative* Yaneth Santiago MSW LISW-S - 04/19/2024 12:37 PM EDT [facility] reached out to patient regarding BH referral placed by PCP. Left voicemail for patient with P's contact information. Awaiting return call. This is the second attempt. [facility] will follow up in 1-2 weeks. documented in this [id number] History of Present illness Narrative* Sherrie Natarajan LISW - 04/13/2024 10:20 AM EDT [facility] covering for ILDEFONSO Freeman LISW-S. [facility] referral from Sara Alvarez MD re: depression. Call to pt to discuss referral. No Answer, left vm with [facility] contact info encouraging pt to call back to discuss referral further. F/u [facility] will return call in one week. documented in this [id number] NoteChest x-ray looks good, no concerns AUTHENTICATED BY SARA ALVAREZ, ON 04/14/2024 09:16:07[facility]06-10-2024 Instructions* Patient Instructions* Sara Alvarez MD - 04/12/2024 1:43 PM [...] Relevant Orders Ambulatory Ref to [place] [facility] Parakeet Raiser Severe obesity (HCC) Relevant Orders TSH with [...] to receive the results, review them, and letyou know what steps, if any, are needed next. If you haven't heard from us after that please call to inquire. If labs were ordered to be done PRIOR to your next visit we will discuss the results at the time ofyour office visit. If any procedures or imaging [...] look into their status. Customer Service/Billing Questions: [phone] MyChart Assistance: [phone] or [phone] Financial Assistance: [phone] or [phone] Friday 7 am to 5 pm Friday 7 am to 5 pm Friday closed 7 am to 5 pm Friday 8 am to 2 pm documented in this [id number] History of Present illness Narrative* Sara Alvarez MD - 04/12/2024 1:07 PM EDT Subjective Patient ID: Lola Drew is a [...] postnasal drip and choking sensations extending into herchest. Despite these symptoms, she continues to feel unwell. She has been diagnosed with Chronic Obstructive Pulmonary Disease (COPD) and underwent pulmonary function tests approximately 2 years ago.Her last visit to Padma Rahman, a wafer mounter, was in 2021. Dr. Valadez initially attributed her symptoms to asthma rather than COPD. Her current medications include Incruse Ellipta, Advair, andalbuterol. She has been on a combination of montelukast and Advair for several years. Over the past3 weeks, she has been experiencing a cough and difficulty breathing, which she initially attributedto allergies. She has not sought medical attention for her symptoms. She quit smoking in 2014 and cu rrently vapes. She has previously tried Chantix for [...] Bronchitis Colitis COPD (chronic obstructive pulmonary disease) ([facility]) Depression GERD (gastroesophageal reflux disease) Hypercholesterolemia [...] reading the newspaper or watching television: Nearly everyday Moving or speaking so slowly that other [...] made it for you to do your work,take care of things at home, or get [...] daily. NONFORMULARY CPAP 9cm H20 (DASCO) in [facility] ONDANSETRON (ZOFRAN-ODT) 4 MG DISINTEGRATING TABLET Dissolve [...] times a day as needed (dizziness) . LPWZZCFF-IWQ-VUEH-FA-LUTEIN (CENTRUM SILVER WOMEN) 8 MG IRON-400 MCG-300 [...] Assessment Never done Mammogram 08/30/2015 COVID-19 Vaccine () 07/04/2023 Low-dose CT Lung Cancer Screen 08/26/2023 Assessment [...] Relevant Orders Ambulatory Ref to [place] [facility]ake[facility] Raiser Severe obesity (HCC) Relevant Orders TSH with [...] with her cardiac condition with repeating echo sinceit was last done in 2019 along with [...] Follow Up. SARA ALVAREZ MD [facility] [address] [facility] [address] [facility] [address] Dept: [phone] 04/12/2024 1:43 PM Depression Screening Little interest [...] made it for you to do your work,take care of things at home, or get along with other people? Somewhat difficult documented in this [id number] History of Present illness Narrative* Steven Alfaro MD - 11/17/2023 1:20 PM EST Subjective Patient ID: Lola Drew is a [...] best to stay out of the cold. Miguel-Aleyda Since its early on in the illness, [...] Visit ICD-10-CM COPD (chronic obstructive pulmonary disease) ([facility]) - Primary J44.9 Relevant Medications azithromycin (Zithromax) 250 mg tablet predniSONE (Deltasone) 10 mg tablet Current moderate episode of major depressive disorder without prior episode ([facility]) F32.1 Hyperglycemia R73.9 Hypothyroidism E03.9 Sleep apnea G47.30 documented in this [facility] Work Phone: 1(291) 883-316408-14-2023 History of Present illness Narrative* Chris Grider MD - 2023 1:40 PM EDT [facility] [address] [facility] [address] [facility] [address] Dept: [phone] MD Lola Dhillon 73 y.o. female Patient [...] Bronchitis Colitis COPD (chronic obstructive pulmonary disease) ([facility]) Depression GERD (gastroesophageal reflux disease) Hypercholesterolemia [...] total) by mouth 3 (three) times a dayas needed for nausea ., Disp: 30 tablet, Rfl: 0 montelukast (SINGULAIR) 10 mg tablet, Take 1 tablet (10 mg total) by mouth daily., Disp: 90 tablet,Rfl: 4 bweqrkxo-owl-reuc-FA-lutein (Centrum Silver Women) 8 mg iron-400 mcg-300 mcg Tab, Take 1 tablet by mouth ., Disp: , Rfl: NONFORMULARY, CPAP 9cm H20 (DASMD) in [facility], Disp: , Rfl: pantoprazole (PROTONIX) 40 MG [...] capsule, Place 1 capsule (18 mcg total) intoinhaler and inhale daily. (Patient taking differently: Place [...] (one) tablet (4 mg total) on top oftongue every 6 to 8 hours as needed [...] Procedure Laterality Date APPENDECTOMY FINGER SURGERY Bilateral 2010 thumb TONSILLECTOMY AND ADENOIDECTOMY Social History Socioeconomic History Marital status: Occupational History Employer: [employer] Tobacco Use Smoking status: Former Packs/day: 1.00 [...] of submandibular glands, clear salivary flow from Adria's ducts, no stones of Adria's ducts Temporomandibular Joint: no crepitus with motion, [...] shrug, normal detection of odorants and normal laryngealelevation Cerebellar: normal gait, normal finger-nose pointing and negative romberg's sign Vestibulocular: [place]-Hallpike testing negative, Fukuda step test normal, no ocular pursuit defects, and no head-shaking test induced nystagmus PSYCHIATRIC: Mood and affect: normal mood, normal affect CERUMEN REMOVAL PROCEDURE NOTE ([id number]) PROCEDURE PERFORMED BY: Chris Grider MD PROCEDURE DATE: 2023 With the patient and/or caregiver's consent, the patient is positioned in the exam chair and an otic speculum placed into the right ear canal. Under binocular microscopic visualization there is notedto be cerumen impacting the tympanic membrane. This [...] This is not suggestive of Meniere's disease, a. though recovery of hearing between episodes can be seen. I have advised the patient and/or caregiver that the symptoms and exam findings are most consistentwith vertigo of uncertain cause. We have discussed [...] treatable cause is identified. The patient and/or caregiveris able to state an understanding of these [...] signature was used to authenticate this note. * Melissa Duong MA - 2023 1:16 PM EDT Review of Systems Constitutional: Negative. HENT: Positive for ear discharge, postnasal drip, sinus pressure and sinus pain. Eyes: Positive for visual disturbance. Respiratory: Negative. Cardiovascular: Negative. Gastrointestinal: Negative. Endocrine: Negative. Genitourinary: Negative. Musculoskeletal: Positive for neck pain and neck stiffness. Skin: Negative. Allergic/Immunologic: Positive for environmental allergies. Neurological: Positive for dizziness and headaches. Psychiatric/Behavioral: Negative. documented in this [id number] History of Present illness Narrative* Steven Alfaro MD - 05/15/2023 1:20 PM EDT Subjective Reason for Visit: Lola Drew is an 72 y.o. female here for a Medicare Wellness visit. Past Medical, Surgical, and Family History reviewed and updated in chart. Reviewed all medications by prescribing practitioner or clinical pharmacist (such as prescriptions,OTCs, herbal therapies and supplements) and documented in the medical record. HPI COPD is stable on medications. She no longer has a wafer mounter because they do not take her insurance. [...] This Visit COPD (chronic obstructive pulmonary disease) (CMS/[facility]) Relevant Medications umeclidinium (Incruse Ellipta) 62.5 [...] (Valtrex) 500 mg tablet [facility] Work [facility]: Evaluation note* Diagnosis Onset Date Resolution Status Asthma-COPD overlap syndrome chronic Smoking greater than 40 pack years acute Asthma-COPD overlap syndrome chronic JOHNATHAN (obstructive sleep apnea) chronic [facility] Work Phone: Evaluation noteNo assessment information available [facility] Work Phone: Evaluation note* Diagnosis Routine general medical examination at health care facility- Primary Routine general medical examination at a health care facility Chronic obstructive pulmonary disease, unspecified COPD type ([facility]) Hyperlipidemia, unspecified hyperlipidemia type Gastroesophageal reflux disease, unspecified whether esophagitis present Anxiety Anxiety state, unspecified Hyperglycemia Other abnormal glucose Hypothyroidism due to acquired atrophy of thyroid Obstructive sleep apnea syndrome Obstructive sleep apnea (adult) (pediatric) Edema of both lower legs documented in this encounter [facility] Work Phone: Evaluation note* Diagnosis Vestibular migraine- [...] apnea (adult) (pediatric) documented in this encounter [facility] Work Phone: Evaluation note* Diagnosis COPD with [...] [facility] Diagnosis PE (pulmonary thromboembolism) (HCC)- Primary Chronic pulmonary embolism Deep vein thrombosis of peroneal vein, right ([facility]) Vaping nicotine dependence, non-tobacco product COPD with asthma (HCC) [facility]* Diagnosis Community acquired pneumonia of right upper lobe of lung- Primary COPD with asthma (HCC) [facility]* Diagnosis Congestive heart failure, unspecified HF chronicity, unspecified heart failure type (HCC)- Primary COPD with asthma (HCC) Shortness of breath PE (pulmonary thromboembolism) (HCC) Chronic pulmonary embolism Pulmonary hypertension (HCC) Other chronic pulmonary heart diseases [facility]* Diagnosis Chest pain- Primary Unspecified chest pain Chest pain, atypical [facility]* Diagnosis At low risk for fall- Primary COPD with asthma (HCC) Cough, unspecified type COPD with acute exacerbation (HCC) [facility] Diagnosis PE (pulmonary thromboembolism) (HCC)- Primary Chronic pulmonary embolism Deep venous thrombosis (DVT) of right peroneal vein, unspecified chronicity (HCC) Nicotine dependence, cigarettes, in remission COPD with asthma (HCC) Pulmonary nodules Other diseases of lung, not elsewhere classified [facility]* Diagnosis Seasonal allergic rhinitis due to [...] Hypercholesterolemia Pure hypercholesterolemia [facility]* Diagnosis Seasonal allergic rhinitis due to [...] JOHNATHAN on CPAP [facility] Diagnosis Seasonal allergic rhinitis due to [...] acute exacerbation (HCC) [facility]* Diagnosis Seasonal allergic rhinitis due to [...] with asthma (HCC) [facility]* Diagnosis Seasonal allergic rhinitis due to [...] acute exacerbation (HCC) [facility] Diagnosis Seasonal allergic rhinitis due to [...] heart failure (HCC) [facility]* Diagnosis Seasonal allergic rhinitis due to [...] exacerbation (HCC)- Primary [facility]* Diagnosis Onset Date Resolution Status Admit Date Seasonal allergies acute May 032024 11:10am [facility] Work Phone: Evaluation note* Diagnosis Seasonal allergic rhinitis due to [...] (HCC) COPD with acute exacerbation (HCC)- Primary Vestibular migraine COPD with asthma (HCC) Arthralgia, unspecified joint Right leg pain Pain in soft tissues of limb PE (pulmonary thromboembolism) (HCC) Chronic pulmonary embolism Moderate recurrent major depression (HCC) Major depressive disorder, recurrent episode, moderate [facility]* Diagnosis Pain in right leg Pain in right lower leg documented in this encounter [facility] Work Phone: Evaluation note* Diagnosis Seasonal allergic rhinitis due to [...] type- Primary COPD with acute exacerbation (HCC) Positive JAYME (antinuclear antibody)- Primary Other and unspecified nonspecific immunological findings [facility]* Diagnosis Seasonal allergic rhinitis due to [...] type- Primary COPD with acute exacerbation (HCC) Positive JAYME (antinuclear antibody)- Primary Other and unspecified nonspecific immunological findings Grief Adjustment disorder with depressed mood [facility]* Diagnosis Seasonal allergic rhinitis due to [...] type- Primary COPD with acute exacerbation (HCC) VTE (venous thromboembolism)- Primary Embolism and thrombosis of unspecified site Mixed hyperlipidemia [facility] N[facility]* The patient is [...] OV only 6 months. [facility] Work Phone: History of Present illness [...] Mammogram today * Colonoscopy 2019, 5 years. [facility] Work Phone: History of Present illness [...] and patient feels the CPAP is effective. [facility] Work Phone: Instructions* Attachments The following attachments cannot be sent through Care Everywhere. * Pneumonia (Kyrgyz) documented in this encounterOhioHealthReason for referral (narrative)* Consultation (Routine) - Authorized Specialty Diagnoses / Procedures Referred By Po sue Referred To Contact Primary Care Procedures Follow Up In Primary Care - Established Steven Alfaro MD [address] [place] [address] Referral ID Status Reason Start Date Expiration Date V isits Requested Visits Authorized [id number] Authorized 05/15/2023 11/11/2023 1 1 T [facility] Work Phone: Reason for referral (narrative)* Consultation (Routine) - Authorized Specialty Diagnoses / Procedures Referred By Po sue Referred To Contact Primary Care Procedures Follow Up In Primary Care - Established Steven Alfaro MD [address] [place] [address] Referral ID Status Reason Start Date Expiration Date V isits Requested Visits Authorized [id number] Authorized 11/17/2023 11/16/2024 1 1 [facility] Work Phone: Reason for referral (narrative)No reason for referral [facility] Work [facility]: Reason for visit Narrative* Imaging (Emergency) - Authorized Specialty Diagnoses / Procedures Referred By Po sue Referred To Contact Cardiology Diagnoses Pain in right leg Procedures Vascular US lower extremity venous duplex right [facility] [address] [address] Phone: tel: fax: Referral ID Status Reason Start Date Expiration Date Visits Requested Visits Authorized [id number] Authorized Perform Procedure 05/25/2025 05/25/2026 1 1 [facility] Work Phone: Summary Purpose Family History No Family History Records Found Mother Name Dates Details Family history of [...] heart failure: Father(V17.49, Z82.49) Status:Active Advance Directives No Advanced Directives Records Found Date Activated Date Inactivated Comments 07/25/2024 12:39 [...] CHK, REV LABS(IN CHART)MCW..6 MO FU. REV [id number] Chief Complaint and Reason for Visit Chief Complaint cold symptoms E-ORDER 6 M FU Reason for Visit Asthma-COPD overlap syndrome Smoking greater than 40 pack years Asthma-COPD overlap syndrome JOHNATHAN (obstructive sleep apnea) Chief Complaint SMOKER > 40 PK YRS Chief Complaint Admit Date Acute Sick May 13, 2025 11:1 0am Reason for Visit Admit Date Seasonal allergies May 13, 2025 11:1 0am Chief Complaint Admit Date Acute Sick May 13, 2025 11:1 0am J44.9 - Chronic obstructive pulmonary di sease, uns May 18, 2025 7:46am Reason for Visit Admit Date Asthma-COPD overlap syndrome May 13, 2025 11:10am Obesity May 13, 2025 11:1 0am JOHNATHAN (obstructive sleep apnea) May 13, 2025 11:10am PND (post-nasal drip) May 13, 2025 11 :10am Seasonal allergies May 13, 2025 11:1 0am Reason for Referral Specialty Diagnoses / Procedures Referred By Po sue Referred To Contact Audiology Diagnoses Vertigo Chris Grider MD [address] [place], [place] [phone] [facility] [address] [place] [address] Referral ID Status Reason Start Date Expiration Date V isits Requested Visits Authorized [id number] Authorized 2023 06/15/2024 1 1 Specialty Diagnoses / Procedures Referred By Contac t Referred To Contact Pulmonology Diagnoses COPD with asthma (HCC) Procedures Complete PFT with Pre and Post Bronchodilator Sara Alvarez MD [address] [phone] Referral ID Status Reason Start Date Expiration Date V isits Requested Visits Authorized [id number] Authorized 04/15/2024 04/15/2025 1 1 Specialty Diagnoses / Procedures Referred By Contac t Referred To Contact Pulmonology Diagnoses COPD with asthma (HCC) COPD with acute exacerbation (HCC) Sara Alvarez MD [facility] [place] [address] Laya Agee MD [facility] Hiltonkatrin Broussard [address] [address] Referral ID Status Reason Start Date Expiration Date V isits Requested Visits Authorized [id number] Authorized 04/12/2024 04/12/2025 1 1 Specialty Diagnoses / Procedures Referred By Contac t Referred To Contact Behavorist (Outpatient Social Work) Diagnoses Current moderate episode of major depressive disorder without prior episode (HCC) Sara Alvarez MD [address] [phone] Referral ID Status Reason Start Date Expiration Date V isits Requested Visits Authorized [id number] Authorized 04/12/2024 04/12/2025 1 1 Specialty Diagnoses / Procedures Referred By Contac t Referred To Contact Radiology Diagnoses Nicotine dependence, cigarettes, in remission Procedures CT Lung Cancer Screening Patricia Lozano MD [address] [place] [id number] Referral ID Status Reason Start Date Expiration Date V isits Requested Visits Authorized [id number] New Request 07/13/2024 07/13/2025 1 1 Specialty Diagnoses / Procedures Referred By Contac t Referred To Contact Sleep Medicine Diagnoses JOHNATHAN on CPAP Patricia Lozano MD [address] [place] [address] Referral ID Status Reason Start Date Expiration Date V isits Requested Visits Authorized [id number] Authorized 07/13/2024 07/13/2025 1 1 Specialty Diagnoses / Procedures Referred By Contac t Referred To Contact Diagnoses COPD with asthma (HCC) Patricia Lozano MD [address] [place] [address] Referral ID Status Reason Start Date Expiration Date Visits Re quested Visits Authorized [id number] Closed 1 1 Additional Source Comments INFORMATION SOURCE (unrecogn ized section and content) DATE CREATED AUTHOR 07/26/2019 [facility] DATE CREATED AUTHOR AUTHOR'S ORGANIZ ATION 04/18/2022 [facility] DATE CREATED AUTHOR AUTHOR'S ORGANIZ ATION 11/13/2022 [employer] DATE CREATED AUTHOR AUTHOR'S ORGANIZ ATION 05/08/2023 [facility] [place] [facility] DATE CREATED AUTHOR AUTHOR'S ORGANIZ ATION 11/18/2023 [facility] DATE CREATED AUTHOR AUTHOR'S ORGANIZ ATION 09/01/2024 [facility] DATE CREATED AUTHOR AUTHOR'S ORGANIZ ATION 11/19/2024 [facility] DATE CREATED AUTHOR AUTHOR'S ORGANIZ ATION 03/12/2025 [facility] DATE CREATED AUTHOR AUTHOR'S ORGANIZ ATION 05/29/2025 [facility] DATE CREATED AUTHOR AUTHOR'S ORGANIZ ATION 06/06/2025 [facility] DATE CREATED AUTHOR AUTHOR'S ORGANIZ ATION 06/29/2025 [facility] DATE CREATED AUTHOR AUTHOR'S ORGANIZ ATION 07/01/2025 [facility] Goals (unrecognized section and content) Goals may [...] Refill Reason Comments Medicare Annual Wellness Visit [facility] Reason Comments Dizziness Reason Comments Follow-up Specialty Diagnoses / Procedures Referred By Po sue Referred To Contact Primary Care Procedures Follow Up In Primary Care - Established Steven Alfaro MD [address] [phone] Referral ID Status Reason Start Date Expiration Date Visits Re quested Visits Authorized [id number] Closed 05/15/2023 11/11/2023 1 1 Reason Onset Date Comments Care Coordination [facility] 04/13/2024 Reason Onset Date Comments Care Coordination - [facility] 04/19/2024 Reason Comments Establish Care SOB, and congestion symptoms x's 3 weeks Reason Onset Date Comments Medication Refill 04/27/2024 Reason Comments Consult Patient here for a c onsult. She was referred by her PCP. She has a pulmonary doctor in [place]. She reports her insurance would not accept [...] with acute exacerbation (HCC) Sara Alvarez MD [facility] [address] [address] Laya Agee MD [address] [place], [place] [address]katrin Chacko [address] [place] [address] Referral ID Status Reason Start Date Expiration Date Visits Re quested Visits Authorized [id number] Closed 04/12/2024 04/12/2025 1 1 Reason Comments [...] Expiration Date Visits Re quested Visits Authorized [id number] 1 1 Reason Onset Date Comments Transition Of Care 10/21/2024 Reason Onset Date Comments URI Symptoms x's 1 w [place] Fall Risk Screening 10/28/2024 Reason Comments PULMONARY EMBOLISM DVT 3MTH Reason Comments Follow-up 3 month f/u-sinus is sues Reason Comments Cough Congestion headache x couple days Reason Comments Cough Patient presents tod ay with headache, congestion, shortness of breath and cough x 2 days. Reason Comments Anxiety N Reason Comments Cough X 1 dayCOPD and asth ma Reason Comments Follow-up 6 month follow up- b ack of right leg behind knee painful Reason Onset Date Comments Medication Refill 06/07/2025 Reason Comments Follow-up Overdue 6 mo Care Teams (unrecognized sec tion and content) Automatic Oven Operator Relationship Specialty Start Date End Date Denny Dumas MD [address] [facility] [address] [place] [address] PCP - General 08/08/11 09/11/15 Steven Alfaro MD [address] [phone] PCP - General Family Medicine 09/12/15 Automatic Oven Operator Relationship Specialty Start Date End Date Steven Alfaro MD [address] [phone] PCP - General 07/06/19 Steven Alfaro MD [address] [place] [address] PCP - [employer] PCP 11/03/22 Automatic Oven Operator Relationship Specialty Start Date End Date Steven Alfaro MD [address] [phone] PCP - General Family Medicine 09/12/15 Automatic Oven Operator Relationship Specialty Start Date End Date Steven Alfaro MD [address] [phone] PCP - General 07/06/19 Steven Alfaro MD [address] [place] [address] PCP - [employer] PCP 11/03/22 Automatic Oven Operator Relationship Specialty Start Date End Date Sara Alvarez MD [address] [id number] PCP - General Family Medicine 04/12/24 Automatic Oven Operator Relationship Specialty Start Date End Date Sara Alvarez MD [address] [id number] PCP - General Family Medicine 04/12/24 Lilo Perez MSW FOOD AND NUTRITION SUPERVISOR Corrosion Control SpecialistContact Center Director 04/15/24 Automatic Oven Operator Relationship Specialty Start Date End Date Sara Alvarez MD [address] [id number] PCP - General Family Medicine 04/12/24 iLlo Perez DYEING MACHINE BACK TENDER FOOD AND NUTRITION SUPERVISOR Corrosion Control SpecialistContact Center Director 04/15/24 Automatic Oven Operator Relationship Specialty Start Date End Date Sara Alvarez MD [address] [id number] PCP - General Family Medicine 04/12/24 Automatic Oven Operator Relationship Specialty Start Date End Date Sara Alvarez MD [address] [phone] PCP - General Family Medicine 04/12/24 Automatic Oven Operator Relationship Specialty Start Date End Date Sara Alvarez MD [facility] [phone] PCP - General Family Medicine 04/12/24 Automatic Oven Operator Relationship Specialty Start Date End Date Sara Alvarez MD [address] [phone] PCP - General Family Medicine 04/12/24 Automatic Oven Operator Relationship Specialty Start Date End Date Sara Alvarez MD [address] [phone] PCP - General Family Medicine 04/12/24 Automatic Oven Operator Relationship Specialty Start Date End Date Sara Alvarez MD [address] [phone] PCP - General Family Medicine 04/12/24 Automatic Oven Operator Relationship Specialty Start Date End Date Sara Alvarez MD [facility] [address] [address] PCP - General Family Medicine 04/12/24 Automatic Oven Operator Relationship Specialty Start Date End Date Sara Alvarez MD [facility] [phone] PCP - General Family Medicine 04/12/24 Automatic Oven Operator Relationship Specialty Start Date End Date Sara Alvarez MD [facility] [phone] PCP - General Family Medicine 04/12/24 Automatic Oven Operator Relationship Specialty Start Date End Date Sara Alvarez MD [address] [place], [place] [phone] PCP - General Family Medicine 04/12/24 Automatic Oven Operator Relationship Specialty Start Date End Date Sara Alvarez MD [facility] [phone] PCP - General Family Medicine 04/12/24 Automatic Oven Operator Relationship Specialty Start Date End Date Sara Alvarez MD [address] [place], [place] [phone] PCP - General Family Medicine 04/12/24 Automatic Oven Operator Relationship Specialty Start Date End Date Sara Alvarez MD [facility] [phone] PCP - General Family Medicine 04/12/24 Automatic Oven Operator Relationship Specialty Start Date End Date Sara Alvarez MD [address] [phone] PCP - General Family Medicine 04/12/24 Automatic Oven Operator Relationship Specialty Start Date End Date Sara Alvarez MD [address] [phone] PCP - General Family Medicine 04/12/24 Automatic Oven Operator Relationship Specialty Start Date End Date Sara Alvarez MD [facility] [phone] PCP - General Family Medicine 04/12/24 Automatic Oven Operator Relationship Specialty Start Date End Date Sara Alvarze MD [address] [place], [place] [phone] PCP - General Family Medicine 04/12/24 Automatic Oven Operator Relationship Specialty Start Date End Date Sara Alvarez MD [address] [place], [place] [phone] PCP - General Family Medicine 04/12/24 Automatic Oven Operator Relationship Specialty Start Date End Date Sara Alvarez MD [address] [place], [place] [phone] PCP - General Family Medicine 04/12/24 Team Status: Active Member Role/Relationship Status Dates Dr. Steven Aflaro MD Family Provider Active SARA ALVAREZ MD Primary Care Provider Active Team Status: Inactive Member Role/Relationship Status Dates Dr. Steven Alfaro MD Referring Provider Active Start: May 13, 2025 End: May 13, 2025 Padma Pérez HOME FURNISHINGS SALES REPRESENTATIVE, HOME FURNISHINGS SALES REPRESENTATIVE-C Attending Provider Active Start: May 13, 2025 End: May 13, 2025 SARA ALVAREZ MD Primary Care Provider Active Start: May 13, 2025 End: May 13, 2025 Team Status: Active Member Role/Relationship Status Dates SARA ALVAREZ MD Primary Care Provider Active Team Status: Inactive Member Role/Relationship Status Dates SARA ALVAREZ MD Primary Care Provider Active Start: May 14, 2025 End: May 14, 2025 Padma Pérez HOME FURNISHINGS SALES REPRESENTATIVE, HOME FURNISHINGS SALES REPRESENTATIVE-C Attending Provider Active Start: May 14, 2025 End: May 14, 2025 Padma Pérez HOME FURNISHINGS SALES REPRESENTATIVE, HOME FURNISHINGS SALES REPRESENTATIVE-C Referring Provider Active Start: May 14, 2025 End: May 14, 2025 Team Status: Active Member Role/Relationship Status Dates SARA ALVAREZ MD Primary Care Provider Active Start: May 18, 2025 Padma Pérez HOME FURNISHINGS SALES REPRESENTATIVE, HOME FURNISHINGS SALES REPRESENTATIVE-C Attending Provider Active Start: May 18, 2025 Padma Pérez HOME FURNISHINGS SALES REPRESENTATIVE, HOME FURNISHINGS SALES REPRESENTATIVE-C Referring Provider Active Start: May 18, 2025 Team Status: Inactive Member Role/Relationship Status Dates SARA ALVAREZ MD Primary Care Provider Active Start: May 18, 2025 End: May 18, 2025 Padma Pérez HOME FURNISHINGS SALES REPRESENTATIVE, HOME FURNISHINGS SALES REPRESENTATIVE-C Attending Provider Active Start: May 18, 2025 End: May 18, 2025 Padma Pérez HOME FURNISHINGS SALES REPRESENTATIVE, HOME FURNISHINGS SALES REPRESENTATIVE-C Referring Provider Active Start: May 18, 2025 End: May 18, 2025 Automatic Oven Operator Relationship Specialty Start Date End Date Sara Alvarez MD [address] [place] [id number] PCP - General Family Medicine 04/12/24 Automatic Oven Operator Relationship Specialty Start Date End Date Sara Alvarez MD [address] [place] [id number] PCP - General Family Medicine 02/08/25 Automatic Oven Operator Relationship Specialty Start Date End Date Sara Alvarez MD [address] [place] [id number] PCP - General Family Medicine 04/12/24 Automatic Oven Operator Relationship Specialty Start Date End Date Sara Alvarez MD [address] [phone] PCP - General Family Medicine 04/12/24 Automatic Oven Operator Relationship Specialty Start Date End Date Sara Alvarez MD [address] [phone] PCP - General Family Medicine 04/12/24 Scheduled Active and Recently Administ ered Medications [...] RN) 0840 (Given - Provider: Tiarra Gomez, RN) buPROPion (WELLBUTRIN XL) 24 hr tablet 300 mg 300 mg, Oral, Daily, First dose on Fri10/19/24 at 1600, Tablets to be swallowed whole. DO NOT CRUSH OR CHEW. 1620 (Given - Provider: Ирина Reynolds, RN) 0840 (Given - Provider: Tiarra Gomez, SOFIYA) DULoxetine (CYMBALTA) DR capsule 30 mg 30 mg, Oral, Daily, First dose on Fri10/19/24 at 1600, Take in addition to 60mg capsule for a daily dose of 90mg DO NOT CRUSH OR CHEW. 1620 (Given - Provider: Ирина Reynolds, SOFIYA) 0839 (Given - Provider: Tiarra Gomez, SOFIYA) DULoxetine (CYMBALTA) DR capsule 60 mg 60 mg, Oral, Daily, First dose on Fri10/19/24 at 1600, Take in addition to 30mg capsule for a daily dose of 90mg DO NOT CRUSH OR CHEW. 1620 (Given - Provider: Ирина Reynolds RN) 0840 (Given - Provider: Tiarra Gomez, SOFIYA) furosemide (LASIX) tablet 40 mg 40 mg, Oral, 2 times daily, First dose on Fri10/19/24 at 1800 1746 (Given - Provider: Marlene Bergeron RN) 0548 (Given - Provider: Lori Bryant, SOFIYA) levothyroxine (SYNTHROID, LEVOTHROID) tablet 75 mcg 75 [...] 10 mEq, Oral, Daily, First dose on 12/17/24 at 1600, DO NOT CRUSH OR CHEW (if instructed may dissolve tablet(s) in liquid) DO NOT ADMINISTER DISSOLVED TABLET VIA SURGICALLY PLACED TUBE OR TUBE less than 14 Greek. To administer dissolved tablet(s) mix with 4 ounces of water over 2-3 minutes, stir for 30 seconds prior to administration; rinse dosing cup and administer residual medication to ensure full dose given 1620 (Given - Provider: Ирина Reynolds, RN) 0839 (Given - Provider: Tiarra Gomez, SOFIYA) simvastatin (ZOCOR) tablet 40 mg 40 mg, Oral, Daily, First dose on Fri10/19/24 at 1600 1620 (Given - Provider: Ирина Reynolds, SOFIYA) [...] - Provider: Edmundo Conway, TECHNOLOGIST - Comment: [id number]) ipratropium-albuteroL (DUO-NEB) 0.5-2.5 mg/3 ml nebulizer solution 3 mL 3 mL, Nebulization, Every 4 hours PRN (RT), shortness of breath, Starting on Fri10/19/24 at 1245 1253 (Given - Provider: Kristen Villar, HUMAN RESOURCES FILE CLERK) melatonin Tab 5 mg 5 mg, Oral, [...] to dose being administered. perflutren lipid microspheres (DEFINITY) 0.143 mg/mL solution [...] mL, Intravenous, Once in imaging, contrast, Per histology tech (Radiology) for line patency check prior to contrast administration, Starting on Fri10/20/24 at 1059, For 1 dose 1140 (Given - Provid er: Edmundo Conway TECHNOLOGIST) sodium chloride (PF) (NS) 0.9 % contrast line flush 80 mL (COMPLETED)(Linked Group 3) 80 mL, Intravenous, Once in imaging, contrast, Per histology tech (Radiology), Starting on Fri10/20/24 at 1059, For 1 dose, 30 mL BEFORE contrast administration 50 mL AFTER contrast administration 1140 (Given - Provid er: Edmundo Conway TECHNOLOGIST) sodium chloride (PF) (NS) flush 5 mL(Linked [...] mL, Intravenous, Once in imaging, contrast, Per histology tech (Radiology) for line patency check prior to contrast administration, Starting on Fri10/20/24 at 1059, For 1 dose And sodium chloride (PF) (NS) 0.9 % contrast line flush 80 mL (COMPLETED)Jump to med 80 mL, Intravenous, Once in imaging, contrast, Per histology tech (Radiology), Starting on Fri10/20/24 at 1059, For [...] BE BASED ON THE PRIMARY CLINICAL RECORDS. [email or web address] provides no warranty or guarantee of the accuracy or completeness of information in this document.
== END | disposition home or self-care (01) ==
PROVIDERS: PCP Family Medicine; Referring Provider Nurse Practitioner Acute Care; Visit Provider Nurse Practitioner Acute Care
DX: F17.210 Nicotine dependence, cigarettes, uncomplicated (principal)
CPT/HCPCS: 71271